=== PATIENT | female | born 1940 | race Caucasian/White ===

== ENCOUNTER 2016-09-14 08:56 | Emergency (ER) | payer OTHER ==
[~2016-09-14] VITALS: Ht 154.9 cm; Wt 67.0 kg
[~2016-09-14 08:56] MED LIST: ADVIN25/60 INH; ALEN1TAB21 PO; AMLO-114 PO; APR25 PO; ASPCH81X PO; ATV5 PO; CLOTCRE33 TOP; CRD4 PO; CRS/10 PO; ERGO1CAP35 PO; FURO-85 PO; HYDR-4313 PO; LEVO150T PO; LPR25 PO; ZNTT/150 PO
[2016-09-14 09:03] VITALS: TEMP 36.5; Ht 154.9 cm; Wt 67.0 kg
[2016-09-14] MEDS ORDERED: ONDANSETRON INJ 2 MG/ML 2 ML VIAL IV STA (09:14)
[2016-09-14] MEDS ORDERED: SODIUM CHLORIDE 0.9% 1000ML 1,000 ML IV STA (09:14)
[2016-09-14] MEDS ORDERED: LOSARTAN POTASSIUM 50 MG TAB PO ONE (09:30)
[2016-09-14] MEDS ORDERED: DOXAZosin MESYLATE TAB 4 MG TAB PO ONE (09:30)
--- NOTE | 2016-09-14 09:33 | DIAGNOSTIC IMAGING REPORT ---
SINGLE VIEW CHEST CLINICAL HISTORY: Generalized abdominal pain. FINDINGS: An AP, portable, upright chest radiograph is compared to study dated 11/20/2010. The examination is degraded by portable technique and patient rotation. The heart is enlarged and there is atherosclerotic calcification of the thoracic aorta. The pulmonary vasculature is noncongested. The lungs and pleural spaces are clear. No pneumothorax is seen. The skeletal structures are osteopenic. The bony thorax is grossly intact. IMPRESSION: Cardiomegaly with no acute cardiopulmonary abnormality. Electronically signed by: Luke Metzger M.D. 09/14/2016 9:32 AM Dictated Date/Time: 09/14/2016 9:31 AM
[2016-09-14 09:36] LABS: BASO % 0.4 %; BASO ABS # 0.02 K/uL (0-0.2); COMPLETE YES; EOS % 1.7 %; HEMATOCRIT 33.5 % (37-47); IG% 0.2 %; LYMPH ABS # 0.92 K/uL (1.2-3.4); MEAN CELL VOLUME 89.1 fL (80-100); MEAN CORPUSCULAR HEMOGLOBIN 31.4 pg (25-34); MEAN CORPUSCULAR HGB CONC 35.2 g/dl (32-36); MEAN PLATELET VOLUME 9.3 fL (7.4-10.4); MONO % 12.8 %; NEUT % 64.9 %; PLATELET COUNT 190 K/uL (130-400); RED BLOOD COUNT 3.76 M/uL (4.2-5.4)
[2016-09-14] MEDS ORDERED: LSX40 PO (09:42)
[2016-09-14] MEDS ORDERED: ATV5 PO (09:42)
[2016-09-14] MEDS ORDERED: LOSA100T65 PO (09:42)
[2016-09-14] MEDS ORDERED: TRAM-10 PO (09:42)
[2016-09-14] MEDS ORDERED: SYN175 PO (09:42)
[2016-09-14] MEDS ORDERED: APIX1TAB3 PO (09:42)
[2016-09-14 09:50] LABS: PARTIAL THROMBOPLASTIN RATIO 1.2; PROTHROMBIN TIME (PATIENT) 10.5 SECONDS (9.0-12.0)
--- NOTE | 2016-09-14 09:51 | DIAGNOSTIC IMAGING REPORT ---
CT SCAN OF THE BRAIN WITHOUT IV CONTRAST CLINICAL HISTORY: Headache. COMPARISON STUDY: No priors. TECHNIQUE: Unenhanced axial CT scan of the brain is performed from the vertex to the skull base. CT DOSE: 537.48 mGy.cm FINDINGS: Brain parenchyma: There are age-related involutional changes noting mild subcortical and periventricular microangiopathic change. There is no hemorrhage, mass effect, or evidence of acute territorial ischemia by CT criteria. Gerard-white matter is preserved. No extra-axial fluid collection is seen. Ventricles, sulci, cisterns: Prominent secondary to involutional change. Intracranial vasculature: There is atherosclerotic calcification of the cavernous carotid and vertebral arteries. Calvarium: Unremarkable. Sinuses and mastoids: The visualized paranasal sinuses are clear. There are small mastoid effusions. Orbits: The bony orbits are grossly intact. There are bilateral ocular lens implants. IMPRESSION: There is no hemorrhage, mass effect, or evidence of acute territorial ischemia by CT criteria. Electronically signed by: Luke Metzger M.D. 09/14/2016 9:49 AM Dictated Date/Time: 09/14/2016 9:47 AM
[2016-09-14 09:54] LABS: BUN/CREATININE RATIO 14.1 (10-20); CALCIUM 8.7 mg/dl (8.5-10.1); CREATININE 2.3 mg/dl (0.60-1.20); POTASSIUM 3.5 mmol/L (3.5-5.1)
[2016-09-14] MEDS ORDERED: ONDA4TAB10 SL (10:55)
--- NOTE | 2016-09-14 10:56 | EMERGENCY ROOM VISIT NOTE ---
History Report prepared by Norm: Sofy Brady Under the Supervision of: Dr. Joey El D.O. First contact with patient: 09:00 Stated Complaint: DIARRHEA History of Present Illness The patient is a 75 year old female who presents to the Emergency Room with complaints of persistent diarrhea that began 2 days ago. She tried to take Imodium and milk of magnesia which did slow down her diarrhea slightly. She also complains of a headache, dry heaves and weakness. She notes that she is having difficulty getting around due to feeling weak. Typically she gets around on her own, but she has relied on her walker over the past couple of days. Denies vomiting or other complaints. 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 Source of History: patient Onset: 2 days ago Position: other (GI) Timing: other (persistent) Associated Symptoms: + headache, + weakness, No vomiting Note: Other symptoms: dry heaving Review of Systems See HPI for pertinent positives & negatives. A total of 10 systems reviewed and were otherwise negative. Past Medical & Surgical Medical Problems: (1) Acute kidney injury superimposed on chronic kidney disease (2) Anemia (3) Anemia associated with chronic renal failure (4) Chronic kidney disease (CKD) stage G4/A2, severely decreased glomerular filtration rate (GFR) between 15-29 mL/min/1.73 square meter and albuminuria creatinine ratio between 30-299 mg/g (5) Hypertension (6) Hypertension (7) Hypothyroidism (8) Proteinuria Family History Diabetes mellitus Social History Smoking Status: Never Smoker Marital Status: single Occupation Status: retired Current/Historical Medications Scheduled Apixaban (Eliquis), 5 MG PO Q12 Doxazosin Mesylate (Doxazosin Mesylate), 1 TAB PO BID Fluticasone Prop/Salmeterol (Advair Diskus 250/50 60 Dose), 1 PUFF INH BID Furosemide (Furosemide), 40 MG PO DAILY Hydralazine Hcl (Apresoline), 25 MG PO TID Levothyroxine Sodium (Synthroid), 175 MCG PO DAILY Losartan Potassium (Cozaar), 100 MG PO DAILY Metoprolol Tartrate (Lopressor), 25 MG PO BID Ranitidine (Zantac), 150 MG PO BID Scheduled PRN Lorazepam (Lorazepam), 0.5 MG PO BID PRN for Anxiety Tramadol (Ultram), 50 MG PO Q12 PRN for Pain Allergies Coded Allergies: Tetracycline (Unverified Allergy, Unknown, unknown(not 100% sure if she's allergic to it), 09/14/16) Tramadol (Verified Adverse Reaction, Unknown, dizzy, emesis, 07/25/15) Physical Exam Vital Signs Date Time Temp Pulse Resp B/P Pulse Ox O2 Delivery O2 Flow Rate FiO2 09/14/16 09:58 60 198/88 09/14/16 09:04 65 09/14/16 09:03 36.5 76 16 249/96 94 Room Air Physical Exam CONSTITUTIONAL/VITAL SIGNS: Reviewed / noted above. GENERAL: Non-toxic in appearance. INTEGUMENTARY: Warm, dry, and [place]. HEAD: Normocephalic. EYES: without scleral icterus or trauma. ENT/OROPHARYNX: clear and moist. LYMPHADENOPATHY/NECK: Is supple without lymphadenopathy or meningismus. RESPIRATORY: Lungs clear and equal. CARDIOVASCULAR: Regular rate and rhythm. GI/ABDOMEN: Soft and nontender. No organomegaly or pulsatile mass. No rebound or guarding. Normal bowel sounds. EXTREMITIES: Warm and well perfused. BACK: No CVA tenderness. NEUROLOGICAL: Intact without focal deficits. PSYCHIATRIC: normal affect. MUSCULOSKELETAL: Normally developed with good muscle tone. Medical Decision & Procedures ER Provider Diagnostic Interpretation: Radiology results as stated below per my review and radiologist interpretation: SINGLE VIEW CHEST CLINICAL HISTORY: Generalized abdominal pain. FINDINGS: An AP, portable, upright chest radiograph is compared to study dated 11/20/2010. The examination is degraded by portable technique and patient rotation. The heart is enlarged and there is atherosclerotic calcification of the thoracic aorta. The pulmonary vasculature is noncongested. The lungs and pleural spaces are clear. No pneumothorax is seen. The skeletal structures are osteopenic. The bony thorax is grossly intact. IMPRESSION: Cardiomegaly with no acute cardiopulmonary abnormality. Electronically signed by: Luke Metzger M.D. 09/14/2016 9:32 AM Dictated Date/Time: 09/14/2016 9:[address] SCAN OF THE BRAIN WITHOUT IV CONTRAST CLINICAL HISTORY: Headache. COMPARISON STUDY: No priors. TECHNIQUE: Unenhanced axial CT scan of the brain is performed from the vertex to the skull base. CT DOSE: 537.48 mGy.cm FINDINGS: Brain parenchyma: There are age-related involutional changes noting mild subcortical and periventricular microangiopathic change. There is no hemorrhage, mass effect, or evidence of acute territorial ischemia by CT criteria. Gerard-white matter is preserved. No extra-axial fluid collection is seen. Ventricles, sulci, cisterns: Prominent secondary to involutional change. Intracranial vasculature: There is atherosclerotic calcification of the cavernous carotid and vertebral arteries. Calvarium: Unremarkable. Sinuses and mastoids: The visualized paranasal sinuses are clear. There are small mastoid effusions. Orbits: The bony orbits are grossly intact. There are bilateral ocular lens implants. IMPRESSION: There is no hemorrhage, mass effect, or evidence of acute territorial ischemia by CT criteria. Electronically signed by: Luke Metzger M.D. 09/14/2016 9:49 AM Dictated Date/Time: 09/14/2016 9:47 AM Laboratory Results 09/14/16 09:06 Red Blood Count 3.76, Mean Corpuscular Volume 89.1, Mean Corpuscular Hemoglobin 31.4, Mean Corpuscular Hemoglobin Concent 35.2, Mean Platelet Volume 9.3, Neutrophils (%) (Auto) 64.9, Lymphocytes (%) (Auto) 20.0, Monocytes (%) (Auto) 12.8, Eosinophils (%) (Auto) 1.7, Basophils (%) (Auto) 0.4, Neutrophils # (Auto ) 2.98, Lymphocytes # (Auto) 0.92, Monocytes # (Auto) 0.59, Eosinophils # (Auto ) 0.08, Basophils # (Auto) 0.02 09/14/16 09:06 Test 09/14/16 09:06 09/14/16 09:27 White Blood Count 4.60 K/uL (4.8-10.8) Red Blood Count 3.76 M/uL (4.2-5.4) Hemoglobin 11.8 g/dL (12.0-16.0) Hematocrit 33.5 % (37-47) Mean Corpuscular Volume 89.1 fL (80-100) Mean Corpuscular Hemoglobin 31.4 pg (25-34) Mean Corpuscular Hemoglobin Concent 35.2 g/dl (32-36) Platelet Count 190 K/uL (130-400) Mean Platelet Volume 9.3 fL (7.4-10.4) Neutrophils (%) (Auto) 64.9 % Lymphocytes (%) (Auto) 20.0 % Monocytes (%) (Auto) 12.8 % Eosinophils (%) (Auto) 1.7 % Basophils (%) (Auto) 0.4 % Neutrophils # (Auto) 2.98 K/uL (1.4-6.5) Lymphocytes # (Auto) 0.92 K/uL (1.2-3.4) Monocytes # (Auto) 0.59 K/uL (0.11-0.59) Eosinophils # (Auto) 0.08 K/uL (0-0.5) Basophils # (Auto) 0.02 K/uL (0-0.2) RDW Standard Deviation 40.7 fL (36.4-46.3) RDW Coefficient of Variation 12.6 % (11.5-14.5) Immature Granulocyte % (Auto) 0.2 % Immature Granulocyte # (Auto) 0.01 K/uL (0.00-0.02) Prothrombin Time 10.5 SECONDS (9.0-12.0) Prothromb Time International Ratio 1.0 (0.9-1.1) Activated Partial Thromboplast Time 30.1 SECONDS (21.0-31.0) Partial Thromboplastin Ratio 1.2 Anion Gap 12.0 mmol/L (3-11) Est Creatinine Clear Calc Drug Dose 18.8 ml/min Estimated GFR () 23.5 Estimated GFR (Non- 20.3 BUN/Creatinine Ratio 14.1 (10-20) Calcium Level 8.7 mg/dl (8.5-10.1) Total Bilirubin 0.6 mg/dl (0.2-1) Direct Bilirubin 0.2 mg/dl (0-0.2) Aspartate Amino Transf (AST/SGOT) 25 U/L (15-37) Alanine Aminotransferase (ALT/SGPT) 17 U/L (12-78) Alkaline Phosphatase 142 U/L (45-117) Total Protein 7.2 gm/dl (6.4-8.2) Albumin 3.6 gm/dl (3.4-5.0) Lipase 99 U/L (73-393) Influenza Type A Antigen Neg for Influ A (NEG) Influenza Type B Antigen Neg for Influ B (NEG) Laboratory results as stated above per my review. Medications Administered Medications (Trade) Dose Ordered Sig/Devin Route Start Time Stop Time Status Last Admin Dose Admin Sodium Chloride (Nss 1000ml) 1,000 ml @ 999 mls/hr Q1H1M STAT IV 09/14/16 09:14 09/14/16 10:14 DC 09/14/16 09:31 999 MLS/HR Ondansetron HCl (Zofran Inj) 4 mg NOW STAT IV 09/14/16 09:14 09/14/16 09:17 DC 09/14/16 09:29 4 MG Losartan Potassium (coZAAR TAB) 100 mg ONE ONCE PO 09/14/16 09:30 09/14/16 09:31 DC 09/14/16 10:00 100 MG Doxazosin Mesylate (Cardura Tab) 4 mg ONE ONCE PO 09/14/16 09:30 09/14/16 09:31 DC 09/14/16 10:01 4 MG Hydralazine HCl (Apresoline Tab) 25 mg NOW STAT PO 09/14/16 09:17 09/14/16 09:20 DC 09/14/16 10:00 25 MG ED Course 0912: Previous medical records were reviewed. The patient was evaluated in room A11. A complete history and physical examination was performed. 0914: Ordered Zofran Inj 4 mg IV, NSS 1000 ml @ 999 mls/hr IV. 0917: Ordered Apresoline Tab 25 mg PO. 0930: Ordered Cardura Tab 4 mg PO, coZAAR Tab 100 mg PO. 1047: On reevaluation, the patient is feeling better. I discussed the results and findings with the patient. She verbalized agreement of the treatment plan. The patient was discharged home. Medical Decision Differential includes acute coronary syndrome, myocardial infarction, CVA, TIA, anemia, infection, pneumonia, UTI, pyelonephritis, poor nutrition, dehydration, electrolyte disturbance,hypoglycemia. This is a 75-year-old female who presents to the ED with a chief complaint of diarrhea. The patient also had some dry heaves. Her symptoms started on Thursday. She has not had any vomiting. She did not have diarrhea today. She took Imodium which seems to have helped. The patient came in because she thought she might be dehydrated. She was a little weak. The patient also complained of a headache. She is on anticoagulation (Eliquis). The patient reports baseline renal insufficiency. She also states that she did not take her blood pressure medication this morning. CT scan of the brain was negative for acute disease as well as a chest x-ray. CBC is unremarkable. BUN is 33. Creatinine is around baseline at 2.3. Sodium was 126. Flu swab was negative. On reassessment, the patient does report feeling better. She was told results the test. She will be discharged with a prescription for Zofran. The patient was treated with IV fluids as well as IV Zofran and some of her oral blood pressure medication. She was felt to be stable for discharge. Her blood pressure was elevated. This is likely related to the fact she did not take her medication this morning as well as possibly related to some pork torsion due to her diarrhea. There does not appear to be a hypertensive emergency. Impression Primary Impression: Diarrhea Additional Impression: Dehydration Scribe Attestation The scribe's documentation has been prepared under my direction and personally reviewed by me in its entirety. I confirm that the note above accurately reflects all work, treatment, procedures, and medical decision making performed by me. Departure Information Dispostion Home / Self-Care Prescriptions Ondasetron Odt (ZOFRAN ODT) 4 Mg Tab 4 MG SL Q6H for Nausea, #15 TAB Prov: Joey El D.O. 09/14/16 Referrals Enzo Carrington M.D. (PCP) Patient Instructions Diarrhea, My [facility] Additional Instructions Zofran: Allow one tablet to dissolve under the tongue every 6 hours as needed for nausea or vomiting. Sent to [facility] and [place]. Return for any concerns. Take your blood pressure medication as prescribed. Follow-up with your doctor later this week for recheck. Have your blood pressure rechecked as well. Problem Qualifiers
[2016-09-14 11:09] VITALS: BP 200/66; PULSE 65; O2SAT 97
== END 2016-09-14 11:10 | disposition home or self-care (01) ==
LOC: EDBD 08:56 → C.EDA 08:57
DX: R19.7 Diarrhea, unspecified (principal); E86.0 Dehydration; D64.9 Anemia, unspecified; N18.3 Chronic kidney disease, stage 3 (moderate); E03.9 Hypothyroidism, unspecified; I10 Essential (primary) hypertension

== ENCOUNTER 2016-10-22 16:52 | Emergency (ER) | payer OTHER ==
[~2016-10-22] VITALS: Ht 157.5 cm; Wt 73.9 kg
[~2016-10-22 16:52] MED LIST changes: -ALEN1TAB21 PO; -AMLO-114 PO; +APIX1TAB3 PO; -ASPCH81X PO; -CLOTCRE33 TOP; -CRS/10 PO; -ERGO1CAP35 PO; -FURO-85 PO; -HYDR-4313 PO; -LEVO150T PO; +LOSA100T65 PO; +LSX40 PO; +ONDA4TAB10 SL; +SYN175 PO; +TRAM-10 PO
[2016-10-22 16:58] VITALS: TEMP 36.9; Ht 157.5 cm; Wt 73.9 kg
[2016-10-22] MEDS ORDERED: SODIUM CHLORIDE 0.9% 1000ML 1,000 ML IV STA (17:08)
[2016-10-22] MEDS ORDERED: ONDANSETRON INJ 2 MG/ML 2 ML VIAL IV STA (17:08)
--- NOTE | 2016-10-22 17:09 | EMERGENCY ROOM VISIT NOTE ---
History Report prepared by Norm: Marc Villalobos Under the Supervision of: Paolo MorrisO. First contact with patient: 16:59 Chief Complaint: VOMITING Stated Complaint: NAUSEA, DIARRHEA History of Present Illness The patient is a 75 year old female who presents to the Emergency Room with complaints of an episode of vomiting and diarrhea that occurred prior to arrival today. Per the nursing staff, the patient ate a pork product at [facility], and as soon as the patient got home, she started becoming nauseous with episodes of vomiting and diarrhea. She had 2 episodes of diarrhea. The patient started to get shaky as well. She called an ambulance, and was brought here. She feels fine now and her symptoms have resolved. The patient denies any chest pain, shortness of breath, abdominal pain, urinary symptoms, leg swelling, or leg pain. The patient is diabetic and has hypertension. She has no past surgical history. The patient does not drink alcohol or use tobacco products. Source of History: patient, nursing staff Onset: Prior to arrival today Position: other (global - vomiting, diarrhea) Timing: resolved, other (episode) Associated Symptoms: + nausea, No SOB, No abdominal pain, No chest pain, No urinary symptoms Note: Associated symptoms: Shaky during episode. Denies leg swelling, leg pain. Review of Systems See HPI for pertinent positives & negatives. A total of 10 systems reviewed and were otherwise negative. Past Medical & Surgical Medical Problems: (1) Acute kidney injury superimposed on chronic kidney disease (2) Anemia (3) Anemia associated with chronic renal failure (4) Chronic kidney disease (CKD) stage G4/A2, severely decreased glomerular filtration rate (GFR) between 15-29 mL/min/1.73 square meter and albuminuria creatinine ratio between 30-299 mg/g (5) Hypertension (6) Hypertension (7) Hypothyroidism (8) Proteinuria Family History Diabetes mellitus Social History Smoking Status: Never Smoker Smokeless Tobacco Use: No Alcohol Use: none Marital Status: single Occupation Status: retired Current/Historical Medications Scheduled Apixaban (Eliquis), 5 MG PO Q12 Aspirin (Aspirin Ec), 81 MG PO DAILY Cholecalciferol (Vitamin D-3), 400 UNIT PO DAILY Doxazosin Mesylate (Doxazosin Mesylate), 1 TAB PO BID Fluticasone Prop/Salmeterol (Advair Diskus 250/50 60 Dose), 1 PUFF INH BID Furosemide (Furosemide), 40 MG PO DAILY Hydralazine Hcl (Apresoline), 25 MG PO TID Levothyroxine Sodium (Synthroid), 175 MCG PO DAILY Losartan Potassium (Cozaar), 100 MG PO DAILY Metoprolol Tartrate (Lopressor), 25 MG PO BID Ondasetron Odt (Zofran Odt), 4 MG SL Q6H Ranitidine (Zantac), 150 MG PO BID Scheduled PRN Lorazepam (Lorazepam), 0.5 MG PO BID PRN for Anxiety Tramadol (Ultram), 50 MG PO Q12 PRN for Pain Allergies Coded Allergies: Pork (Unverified Allergy, Unknown, unknown, 10/22/16) Pork Allergy (Unverified Allergy, Unknown, unknown, 10/22/16) Tetracycline (Unverified Allergy, Unknown, unknown(not 100% sure if she's allergic to it), 10/22/16) Tramadol (Verified Adverse Reaction, Unknown, dizzy, emesis, 10/22/16) Physical Exam Vital Signs Date Time Temp Pulse Resp B/P Pulse Ox O2 Delivery O2 Flow Rate FiO2 10/22/16 18:33 68 16 140/87 97 Room Air 10/22/16 17:25 60 20 137/71 97 Room Air 10/22/16 16:58 36.9 66 16 153/79 97 Room Air Physical Exam GENERAL: Patient is awake, alert, and in no acute distress. Patient is resting comfortably and showing no signs of anxiety EYES: The conjunctivae are clear. The pupils are round and reactive. EARS, NOSE, MOUTH AND THROAT: The nose is without any evidence of any deformity. Mucous membranes are moist tongue is midline NECK: The neck is nontender and supple. RESPIRATORY: Normal respiratory effort is noted there is no evidence of wheezing rhonchi or rales CARDIOVASCULAR: Regular rate and rhythm noted there no murmurs rubs or gallops normal S1 normal S2 GASTROINTESTINAL: The abdomen is soft. Bowel sounds are present in all quadrants. Abdomen is nontender. MUSCULOSKELETAL/EXTREMITIES: There is no evidence of gross deformity full range of motion is noted in the hips and shoulders SKIN: There is no obvious evidence of any rash. There are no petechiae, pallor or cyanosis noted. NEUROLOGIC: Patient is awake alert and oriented x3. Medical Decision & Procedures ER Provider Diagnostic Interpretation: X-ray results as stated below per interpretation by me and the radiologist. CHEST ONE VIEW PORTABLE CLINICAL HISTORY: vomiting nausea COMPARISON STUDY: No previous studies for comparison. FINDINGS: The bones soft tissues and hemidiaphragms are normal. The cardiomediastinal silhouette is normal. The lungs are clear. The pulmonary vasculature is normal. IMPRESSION: Negative chest. Electronically signed by: Kamari Florez M.D. 10/22/2016 5:35 PM Dictated Date/Time: 10/22/2016 5:35 PM Laboratory Results 10/22/16 17:25 Red Blood Count 3.73, Mean Corpuscular Volume 90.6, Mean Corpuscular Hemoglobin 32.4, Mean Corpuscular Hemoglobin Concent 35.8, Mean Platelet Volume 9.5, Neutrophils (%) (Auto) 94.1, Lymphocytes (%) (Auto) 2.9, Monocytes (%) (Auto) 2.5, Eosinophils (%) (Auto) 0.1, Basophils (%) (Auto) 0.1, Neutrophils # (Auto) 7.21, Lymphocytes # (Auto) 0.22, Monocytes # (Auto) 0.19, Eosinophils # (Auto) 0.01, Basophils # (Auto) 0.01 10/22/16 17:25 Test 10/22/16 17:25 White Blood Count 7.66 K/uL (4.8-10.8) Red Blood Count 3.73 M/uL (4.2-5.4) Hemoglobin 12.1 g/dL (12.0-16.0) Hematocrit 33.8 % (37-47) Mean Corpuscular Volume 90.6 fL (80-100) Mean Corpuscular Hemoglobin 32.4 pg (25-34) Mean Corpuscular Hemoglobin Concent 35.8 g/dl (32-36) Platelet Count 172 K/uL (130-400) Mean Platelet Volume 9.5 fL (7.4-10.4) Neutrophils (%) (Auto) 94.1 % Lymphocytes (%) (Auto) 2.9 % Monocytes (%) (Auto) 2.5 % Eosinophils (%) (Auto) 0.1 % Basophils (%) (Auto) 0.1 % Neutrophils # (Auto) 7.21 K/uL (1.4-6.5) Lymphocytes # (Auto) 0.22 K/uL (1.2-3.4) Monocytes # (Auto) 0.19 K/uL (0.11-0.59) Eosinophils # (Auto) 0.01 K/uL (0-0.5) Basophils # (Auto) 0.01 K/uL (0-0.2) RDW Standard Deviation 43.1 fL (36.4-46.3) RDW Coefficient of Variation 13.0 % (11.5-14.5) Immature Granulocyte % (Auto) 0.3 % Immature Granulocyte # (Auto) 0.02 K/uL (0.00-0.02) Anion Gap 9.0 mmol/L (3-11) Est Creatinine Clear Calc Drug Dose 17.9 ml/min Estimated GFR () 20.2 Estimated GFR (Non- 17.5 BUN/Creatinine Ratio 19.5 (10-20) Calcium Level 8.5 mg/dl (8.5-10.1) Total Bilirubin 0.9 mg/dl (0.2-1) Direct Bilirubin 0.3 mg/dl (0-0.2) Aspartate Amino Transf (AST/SGOT) 30 U/L (15-37) Alanine Aminotransferase (ALT/SGPT) 21 U/L (12-78) Alkaline Phosphatase 127 U/L (45-117) Troponin I 0.024 ng/ml (0-0.045) Total Protein 6.9 gm/dl (6.4-8.2) Albumin 3.6 gm/dl (3.4-5.0) Lipase 189 U/L (73-393) Laboratory results per my review. Medications Administered Medications (Trade) Dose Ordered Sig/Devin Route Start Time Stop Time Status Last Admin Dose Admin Sodium Chloride (Nss 1000ml) 1,000 ml @ 999 mls/hr Q1H1M STAT IV 10/22/16 17:08 10/22/16 18:08 DC 10/22/16 17:23 999 MLS/HR Ondansetron HCl (Zofran Inj) 4 mg NOW STAT IV 10/22/16 17:08 10/22/16 17:10 DC 10/22/16 17:24 4 MG Ondansetron HCl (ZOFRAN ODT 4MG Home Pack) 1 homepack UD ONCE PO 10/22/16 18:30 10/22/16 18:31 DC 10/22/16 19:03 1 HOMEPACK ECG Indication: vomiting Rate (beats per minute): 63 Rhythm: normal sinus Findings: PVC, other (LVH noted by voltage criteria) Comparison ECG Date: lateral T-wave inversions noted compared to Nov 18 2010 ED Course 1701: The patient was evaluated in room C7. A complete history and physical examination were performed. 1707: Ordered Zofran Inj 4 mg IV, NSS 1000 ml @ 999 mls/hr IV. 1829: Ordered Zofran ODT 4MG Home Pack 1 homepack PO. 1830: Upon reevaluation, the patient is resting comfortably. I discussed the results and treatment plan with her. She verbalized agreement of the treatment plan. She was discharged home. Medical Decision Triage Nursing notes reviewed. Additional history obtained from the nursing staff. Differential diagnosis: Etiologies such as gastroenteritis, food borne illness, infections, appendicitis , diverticulitis, inflammatory bowel disease, obstruction, GI bleed, biliary pathology, as well as others were entertained. The patient is a 75-year-old female who presented to the emergency department after an episode of nausea vomiting and loose stools. The patient states that she ate at a fast food restaurant and directly afterwards had this episode. She became very concerned and called for an ambulance to come to the emergency department. Upon arrival to the emergency Department the patient states that she had no symptoms. She denied having any abdominal pain. Her physical exam was not consistent with an acute surgical abdomen. She was treated with IV fluids and IV antiemetics and was asymptomatic on final reevaluation. I discussed the patient's laboratory and radiographic studies with her. She was found have hyponatremia. I feel this is likely due to her medications. Her creatinine was also mildly elevated from baseline. I discussed the patient's condition with her. I discussed these laboratory results in particular. Her troponin was also above the threshold for detection and I feel this is secondary to her renal insufficiency because she has no cardiac symptoms whatsoever at this time. I offered to have the patient evaluated by the hospitalist for possible inpatient management but she wished to go home because she had no symptoms. She was encouraged to rest and avoid any strenuous activity. She was also encouraged to follow-up with her family doctor tomorrow for reevaluation as well as to evaluate her medications to see if this could be causing her hyponatremia. She was also encouraged to return to the emergency Department immediately if symptoms change worsen or the need arises. Impression Primary Impression: Nausea & vomiting Additional Impressions: Dehydration Hyponatremia Scribe Attestation The scribe's documentation has been prepared under my direction and personally reviewed by me in its entirety. I confirm that the note above accurately reflects all work, treatment, procedures, and medical decision making performed by me. Departure Information Dispostion Home / Self-Care Referrals Enzo Carrington M.D. (PCP) Forms HOME CARE DOCUMENTATION FORM, IMPORTANT VISIT INFORMATION Patient Instructions ED Nausea Vomiting, My [facility] Additional Instructions Call your family in the morning to schedule a follow-up appointment. Continue all medications as prescribed. I would recommend a recheck of your laboratory studies which were abnormal today including her sodium and your creatinine. Return to the emergency department immediately if symptoms change worsen or the need arises. Problem Qualifiers Primary Impression: Nausea & vomiting Vomiting type: unspecified Vomiting Intractability: non-intractable Qualified Codes: R11.2 - Nausea with vomiting, unspecified
[2016-10-22 17:33] LABS: BASO % 0.1 %; BASO ABS # 0.01 K/uL (0-0.2); COMPLETE YES; EOS % 0.1 %; HEMATOCRIT 33.8 % (37-47); IG% 0.3 %; LYMPH % 2.9 %; LYMPH ABS # 0.22 K/uL (1.2-3.4); MEAN CELL VOLUME 90.6 fL (80-100); MEAN CORPUSCULAR HEMOGLOBIN 32.4 pg (25-34); MEAN CORPUSCULAR HGB CONC 35.8 g/dl (32-36); MEAN PLATELET VOLUME 9.5 fL (7.4-10.4); MONO % 2.5 %; NEUT % 94.1 %; PLATELET COUNT 172 K/uL (130-400); RED BLOOD COUNT 3.73 M/uL (4.2-5.4); WHITE BLOOD COUNT 7.66 K/uL (4.8-10.8)
--- NOTE | 2016-10-22 17:37 | DIAGNOSTIC IMAGING REPORT ---
CHEST ONE VIEW PORTABLE CLINICAL HISTORY: vomiting nausea COMPARISON STUDY: No previous studies for comparison. FINDINGS: The bones soft tissues and hemidiaphragms are normal. The cardiomediastinal silhouette is normal. The lungs are clear. The pulmonary vasculature is normal. IMPRESSION: Negative chest. Electronically signed by: Kamari Florez M.D. 10/22/2016 5:35 PM Dictated Date/Time: 10/22/2016 5:35 PM
[2016-10-22] MEDS ORDERED: CHOL1TAB PO (17:44)
[2016-10-22] MEDS ORDERED: ASPI81TA28 PO (17:44)
[2016-10-22 17:52] LABS: BUN/CREATININE RATIO 19.5 (10-20); CALCIUM 8.5 mg/dl (8.5-10.1); CREATININE 2.6 mg/dl (0.60-1.20); POTASSIUM 3.6 mmol/L (3.5-5.1)
[2016-10-22] MEDS ORDERED: ONDANSETRON HOME PACK 4MG OD TAB PO ONE (18:30)
[2016-10-22 20:41] VITALS: BP 153/63; PULSE 58; O2SAT 99
[2017-04-20] MEDS ORDERED: LACT12LO TOP (09:20)
== END 2016-10-22 20:42 | disposition home or self-care (01) ==
LOC: EDBD 16:52 → C.EDC 16:53
DX: R11.2 Nausea with vomiting, unspecified (principal); E86.0 Dehydration; E87.1 Hypo-osmolality and hyponatremia; E03.9 Hypothyroidism, unspecified; N18.4 Chronic kidney disease, stage 4 (severe); I12.9 Hypertensive chronic kidney disease with stage 1 through stage 4 chronic kidney disease, or unspecified chronic kidney disease; D63.1 Anemia in chronic kidney disease; Z83.3 Family history of diabetes mellitus; Z79.01 Long term (current) use of anticoagulants; Z79.82 Long term (current) use of aspirin; Z79.899 Other long term (current) drug therapy; E11.22 Type 2 diabetes mellitus with diabetic chronic kidney disease

== ENCOUNTER 2017-03-19 15:47 | Inpatient (IN) | payer OTHER ==
[~2017-03-19] VITALS: Ht 157.5 cm; Wt 79.6 kg
[~2017-03-19 15:47] MED LIST changes: +ASPI81TA28 PO; +CHOL1TAB PO; -ONDA4TAB10 SL
[2017-03-19] MEDS ORDERED: LORAZEPAM 0.5 MG TAB PO STA ×2 (16:20→17:25)
--- NOTE | 2017-03-19 16:22 | EMERGENCY ROOM VISIT NOTE ---
History Report prepared by Norm: Alonso Frederick Under the Supervision of: Dr. Varsha Garcia D.O. First contact with patient: 16:00 Chief Complaint: MENTAL HEALTH EVALUATION Stated Complaint: DEPRESSION History of Present Illness The patient is a 76 year old female who presents to the Emergency Room with complaints of worsening anxiety that began 2 days ago. At this time, the patient ran out of her Lorazepam prescription. She normally takes 1 mg PO every morning to manage her anxiety. She has not been able to get to her PCP's office because she has been busy. Her anxiety worsened over these days until she became severely depressed today. This is the first time this has happened to her. She denies any suicidal ideation, homicidal ideation, or hallucinations. She has not been able to go to her pediatrist secondary to not having transportation to the office. She also has a history of diabetes and hypertension. She notes her sugars have been good. Source of History: patient Onset: two days ago Position: other (Mental Health) Symptom Intensity: moderate Quality: other (Anxiety) Timing: worsening Note: She denies any SI, HI, or hallucinations. She also denies any physical symptoms. Review of Systems See HPI for pertinent positives & negatives. A total of 10 systems reviewed and were otherwise negative. Past Medical & Surgical Medical Problems: (1) Acute kidney injury superimposed on chronic kidney disease (2) Anemia (3) Anemia associated with chronic renal failure (4) Chronic kidney disease (CKD) stage G4/A2, severely decreased glomerular filtration rate (GFR) between 15-29 mL/min/1.73 square meter and albuminuria creatinine ratio between 30-299 mg/g (5) Hypertension (6) Hypertension (7) Hypothyroidism (8) Proteinuria Family History Diabetes mellitus Social History Smoking Status: Never Smoker Smokeless Tobacco Use: No Alcohol Use: none Drug Use: none Marital Status: single Housing Status: lives alone Occupation Status: retired Current/Historical Medications Scheduled Aspirin (Aspirin Ec), 81 MG PO DAILY Doxazosin Mesylate (Doxazosin Mesylate), 1 TAB PO BID Fluticasone Prop/Salmeterol (Advair Diskus 250/50 60 Dose), 1 PUFF INH BID Furosemide (Furosemide), 40 MG PO DAILY Hydralazine Hcl (Apresoline), 25 MG PO TID Levothyroxine Sodium (Synthroid), 175 MCG PO DAILY Losartan Potassium (Cozaar), 100 MG PO DAILY Metoprolol Tartrate (Lopressor), 25 MG PO BID Ranitidine (Zantac), 150 MG PO BID Scheduled PRN Lorazepam (Lorazepam), 0.5 MG PO BID PRN for Anxiety Allergies Coded Allergies: Pork (Unverified Allergy, Unknown, unknown, 03/19/17) Pork Allergy (Unverified Allergy, Unknown, unknown, 03/19/17) Tetracycline (Unverified Allergy, Unknown, unknown(not 100% sure if she's allergic to it), 03/19/17) Tramadol (Verified Adverse Reaction, Unknown, dizzy, emesis, 03/19/17) Physical Exam Vital Signs Date Time Temp Pulse Resp B/P (MAP) Pulse Ox O2 Delivery O2 Flow Rate FiO2 03/19/17 19:40 76 20 152/71 97 Room Air 03/19/17 17:46 80 18 149/92 99 Room Air 03/19/17 16:08 36.7 73 20 145/90 98 Room Air Physical Exam GENERAL: alert, well appearing, well nourished, no distress, non-toxic EYE EXAM: normal conjunctiva, PERRL and EOM's grossly intact OROPHARYNX: no exudate, no erythema, lips, buccal mucosa, and tongue normal and mucous membranes are moist NECK: supple, no nuchal rigidity, no adenopathy, non-tender LUNGS: Clear to auscultation. Normal chest wall mechanics HEART: no murmurs, S1 normal and S2 normal ABDOMEN: abdomen soft, non-tender, normo-active bowel sounds, no masses, no rebound or guarding. BACK: Back is symmetrical on inspection and there is no deformity, no midline tenderness, no CVA tenderness. SKIN: no rashes and no bruising UPPER EXTREMITIES: upper extremities are grossly normal. LOWER EXTREMITIES: Multiple layers of plaque and debris noted to the bilateral feet, suspect a fungal infection. No evidence of cellulitis, normal pulses bilaterally. NEURO EXAM: Normal sensorium, cranial nerves II-XII grossly intact, normal speech, no gross weakness of arms, no gross weakness of legs. PSYCH: Denies SI, HI, and hallucinations. Makes good eye contact. Admits to depression and anxiety. Medical Decision & Procedures Laboratory Results Test 03/19/17 17:54 03/19/17 19:27 03/19/17 19:35 Immature Granulocyte % (Auto) 0.5 % White Blood Count 5.68 K/uL (4.8-10.8) Red Blood Count 3.28 M/uL (4.2-5.4) Hemoglobin 10.4 g/dL (12.0-16.0) Hematocrit 28.6 % (37-47) Mean Corpuscular Volume 87.2 fL (80-100) Mean Corpuscular Hemoglobin 31.7 pg (25-34) Mean Corpuscular Hemoglobin Concent 36.4 g/dl (32-36) Platelet Count 139 K/uL (130-400) Mean Platelet Volume 8.9 fL (7.4-10.4) Neutrophils (%) (Auto) 82.2 % Lymphocytes (%) (Auto) 9.3 % Monocytes (%) (Auto) 6.9 % Eosinophils (%) (Auto) 0.9 % Basophils (%) (Auto) 0.2 % Neutrophils # (Auto) 4.67 K/uL (1.4-6.5) Lymphocytes # (Auto) 0.53 K/uL (1.2-3.4) Monocytes # (Auto) 0.39 K/uL (0.11-0.59) Eosinophils # (Auto) 0.05 K/uL (0-0.5) Basophils # (Auto) 0.01 K/uL (0-0.2) Immature Granulocyte # (Auto) 0.03 K/uL (0.00-0.02) Magnesium Level 2.0 mg/dl (1.8-2.4) Total Bilirubin 1.1 mg/dl (0.2-1) Aspartate Amino Transf (AST/SGOT) 25 U/L (15-37) Alanine Aminotransferase (ALT/SGPT) 15 U/L (12-78) Alkaline Phosphatase 129 U/L (45-117) Total Protein 6.7 gm/dl (6.4-8.2) Albumin 3.1 gm/dl (3.4-5.0) Globulin 3.6 gm/dl (2.5-4.0) Albumin/Globulin Ratio 0.9 (0.9-2) Thyroid Stimulating Hormone (TSH) 19.600 uIu/ml (0.300-4.500) Ethyl Alcohol mg/dL 34.0 mg/dl (0-3) Iron Level 100 mcg/dl (35-150) Total Iron Binding Capacity 221 mcg/dl (250-450) Urine Color YELLOW Urine Appearance TURBID (CLEAR) Urine pH 5.0 (4.5-7.5) Urine Specific [place] 1.017 (1.000-1.030) Urine Protein 3+ (NEG) Urine Glucose (UA) NEG (NEG) Urine Ketones NEG (NEG) Urine Occult Blood 1+ (NEG) Urine Nitrite NEG (NEG) Urine Bilirubin NEG (NEG) Urine Urobilinogen NEG (NEG) Urine Leukocyte Esterase LARGE (NEG) Urine WBC (Auto) >30 /hpf (0-5) Urine RBC (Auto) >30 /hpf (0-4) Urine Hyaline Casts (Auto) 1-5 /lpf (0-5) Urine Epithelial Cells (Auto) >30 /lpf (0-5) Urine Bacteria (Auto) 4+ (NEG) Urine Osmolality 209 mOms/kg (500-800) Urine Random Sodium 19 mEq/L Date/Time Source Procedure Growth Status 03/19/17 19:35 Urine , Clean Catch Urine Culture - Final THREE TYPES OF ORGANISMS PRESENT, ALL... Complete Laboratory results per my review. Medications Administered Medications (Trade) Dose Ordered Sig/Devin Route Start Time Stop Time Status Last Admin Dose Admin Lorazepam (Ativan Tab) 0.5 mg NOW STAT PO 03/19/17 16:20 03/19/17 16:21 DC 03/19/17 16:35 0.5 MG Lorazepam (Ativan Tab) 0.5 mg NOW STAT PO 03/19/17 17:25 03/19/17 17:27 DC 03/19/17 17:44 0.5 MG Sodium Chloride 1,000 ml @ 125 mls/hr Q8H STAT IV 03/19/17 18:41 03/19/17 20:13 DC 03/19/17 19:39 125 MLS/HR Sodium Chloride 1,000 ml @ 100 mls/hr Q10H STAT IV 03/19/17 20:09 03/19/17 22:31 DC 03/19/17 20:15 100 MLS/HR Sodium Chloride 1,000 ml @ 100 mls/hr Q10H IV 03/19/17 20:45 03/19/17 23:08 DC 03/19/17 22:39 100 MLS/HR Lorazepam (Ativan Tab) 0.5 mg BID PRN PO 03/19/17 20:45 04/18/17 20:44 03/20/17 21:11 0.5 MG Lorazepam (Ativan Inj) 1 mg Q4H PRN IV 03/19/17 20:45 04/18/17 20:44 03/20/17 02:08 1 MG Acetaminophen (Tylenol Tab) 650 mg Q4H PRN PO 03/19/17 20:45 04/18/17 20:44 03/20/17 09:13 650 MG ECG Indication: toxicologic Rate (beats per minute): 73 Findings: T-wave inversion (1 and aVL (unchanged from prior)), no acute ischemic change, left axis deviation, other (Normal intervals, baseline artifact ) Comparison ECG Date: October 2016 Change: no significant change ED Course 1600: The patient was evaluated in room A5. A complete history and physical exam was performed. 1620: Ordered Ativan Tab 0.5 mg PO 1725: Ordered Ativan Tab 0.5 mg PO 1841: Ordered Sodium Chloride 1000 ml @ 125 mls/hr IV 2009: Ordered Sodium Chloride 1000 ml @ 100 mls/hr IV 2011: Upon reevaluation, the patient is resting. I discussed the findings and the treatment plan with the patient. She expresses agreement and understanding. I [place] with [place] [facility]. She will be evaluated by him for further management. Medical Decision Differential diagnosis: Etiologies such as mood disorder, infection, hypoglycemia, electrolyte abnormalities, cardiac sources, intracerebral event, toxicologic, neurologic, as well as others were entertained. Patient initially presented with complaints of worsening depression and anxiety secondary to running out of her lorazepam. However patient did not improve with her usual dose, and at this time labs and urine were checked. Patient initially denied alcohol, however alcohol found on testing. Patient found to have significant hyponatremia worse compared to prior levels in the 120s. Aware repeat labs were done to assure that they were accurate and repeat was 108. I suspect this is a combination of chronic hyponatremia which may be secondary to a beer drinker potomania, her chronic kidney disease, dehydration, as well as a component of SIADH. Patient started on gentle normal saline as a precaution for her rehydration, and case discussed with hospitalist given need for careful monitoring and treatment of her hyponatremia. Patient has had no seizures, is mentating normally, is oriented. Did not feel patient required hypertonic saline or ICU admission at this time. Doubt CVA, no evidence for mass or malignancy. Doubt bacteremia/sepsis. Medication Reconcilliation Current Medication List: was personally reviewed by me Blood Pressure Screening Patient's blood pressure: Elevated blood pressure Blood pressure disposition: Elevated BP felt to be situational Consults Time Called: 2007 Consulting Physician: Dr. Susan QUICK Returned Call: 2010 I reviewed the patient's case with him. He will evaluate the patient for further management. Impression Primary Impression: Hyponatremia Additional Impressions: CKD (chronic kidney disease) Depression Anxiety Alcohol use Scribe Attestation The scribe's documentation has been prepared under my direction and personally reviewed by me in its entirety. I confirm that the note above accurately reflects all work, treatment, procedures, and medical decision making performed by me. Departure Information Dispostion Being Evaluated By Hospitalist Referrals Enzo Carrington M.D. (PCP) Patient Instructions My [facility] Problem Qualifiers Additional Impressions: CKD (chronic kidney disease) Chronic kidney disease stage: unspecified stage Qualified Codes: N18.9 - Chronic kidney disease, unspecified Depression Depression Type: unspecified Qualified Codes: F32.9 - Major depressive disorder, single episode, unspecified
[2017-03-19 18:13] LABS: BASO % 0.2 %; BASO ABS # 0.01 K/uL (0-0.2); COMPLETE YES; EOS % 0.9 %; HEMATOCRIT 28.6 % (37-47); IG% 0.5 %; LYMPH % 9.3 %; LYMPH ABS # 0.53 K/uL (1.2-3.4); MEAN CELL VOLUME 87.2 fL (80-100); MEAN CORPUSCULAR HEMOGLOBIN 31.7 pg (25-34); MEAN CORPUSCULAR HGB CONC 36.4 g/dl (32-36); MEAN PLATELET VOLUME 8.9 fL (7.4-10.4); MONO % 6.9 %; NEUT % 82.2 %; PLATELET COUNT 139 K/uL (130-400); RED BLOOD COUNT 3.28 M/uL (4.2-5.4); WHITE BLOOD COUNT 5.68 K/uL (4.8-10.8)
[2017-03-19 18:37] LABS: BUN/CREATININE RATIO 16.6 (10-20); CALCIUM 8.1 mg/dl (8.5-10.1); CREATININE 1.7 mg/dl (0.60-1.20); POTASSIUM 3.2 mmol/L (3.5-5.1)
[2017-03-19] MEDS ORDERED: SODIUM CHLORIDE 0.9% 1000ML 1,000 ML IV STA ×2 (18:41→20:09)
[2017-03-19 18:46] LABS: ALB/GLOB RATIO 0.9 (0.9-2); THYROID STIMULATING HORMONE 19.6 uIu/ml (0.300-4.500)
[2017-03-19 19:53] LABS: BUN/CREATININE RATIO 16.8 (10-20); CALCIUM 8.5 mg/dl (8.5-10.1); CREATININE 1.7 mg/dl (0.60-1.20); POTASSIUM 3.4 mmol/L (3.5-5.1)
[2017-03-19 20:12] LABS: URINE APPEARANCE TURBID (CLEAR); URINE BILIRUBIN NEG (NEG); URINE COLOR YELLOW; URINE NITRITE NEG (NEG); URINE SPECIFIC GRAVITY 1.017 (1.000-1.030); UROBILINOGEN NEG (NEG); ZZUR CULT IF INDIC CLEAN CATCH YES
[2017-03-19 20:18] LABS: MANUAL MICROSCOPIC REQUIRED? NO; REVIEW REQ? YES
[2017-03-19 20:29] LABS: URINE EPITHELIAL CELL AUTO >30 /lpf (0-5)
[2017-03-19] MEDS ORDERED: ACETAMINOPHEN 325 MG TAB PO PRN (20:45)
[2017-03-19] MEDS ORDERED: POLYETHYLENE (MIRALAX) 17 GM PACK PO PRN (20:45)
[2017-03-19] MEDS ORDERED: SODIUM CHLORIDE 0.9% 1000ML 1,000 ML IV SCH (20:45)
[2017-03-19] MEDS ORDERED: ALUMINUM/MAGNESIUM/SIMETH (MAALOX MAX) 30 ML UDC PO PRN (20:45)
[2017-03-19] MEDS ORDERED: MAGNESIUM HYDROXIDE SUSP 30 ML UDC PO PRN (20:45)
[2017-03-19] MEDS ORDERED: ONDANSETRON INJ 2 MG/ML 2 ML VIAL IV PRN (20:45)
[2017-03-19] MEDS ORDERED: POTASSIUM CHLORIDE 20 MEQ TABCR PO ONE (21:00)
[2017-03-19 21:28] LABS: TOTAL IRON BINDING CAPACITY 221 mcg/dl (250-450)
--- NOTE | 2017-03-19 21:38 | History and Physical ---
History & Physical Date & Time of Service: Mar 19, 2017 at 21:26 Chief Complaint: Depression Primary Care Physician: Enzo Carrington M.D. History of Present Illness Source: patient, family, hospital records 76 y/o F Hx SIADH, hypothyroidism, depression/anxiety, DM, suspected ETOH abuse. Pt presented with a complaint of depression as she had run out of her Lorazepam and may have just wanted a refill. She was placed in the mental health unit for assessment. Labs were drawn and her sodium was noted to be 108. The pt denies additional symptoms although she had an episode of vomiting while in the ER. She is remarkably awake and alert although per her family she may downplay any issues. She denies alcohol consumption, however, her family states that she drinks beer daily - they could not quantify an amount. Noncompliance with her medications is also suspected. 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 3) CAD 4) Gastroparesis 5) Depression/anxiety 6) Reported ETOH abuse 7) Asthma 8) HTN 9) History of traumatic avulsion of the upper lip as a child 10) Chronic kidney disease Stage 3-4 - baseline creat ~ 3 11) Lower extremity edema Family History Diabetes mellitus Social History Smoking Status: Never Smoker Smokeless Tobacco Use: No Drug Use: none Marital Status: single Housing status: lives alone Occupational Status: retired Immunizations History of Influenza Vaccine: Yes History of Tetanus Vaccine?: No History of Pneumococcal: Yes History of Hepatitis B Vaccine: No Multi-Drug Resistant Organisms History of MDRO: No Allergies Coded Allergies: Pork (Unverified Allergy, Unknown, unknown, 03/19/17) Pork Allergy (Unverified Allergy, Unknown, unknown, 03/19/17) Tetracycline (Unverified Allergy, Unknown, unknown(not 100% sure if she's allergic to it), 03/19/17) Tramadol (Verified Adverse Reaction, Unknown, dizzy, emesis, 03/19/17) Home Medications Scheduled Aspirin (Aspirin Ec), 81 MG PO DAILY Doxazosin Mesylate (Doxazosin Mesylate), 1 TAB PO BID Fluticasone Prop/Salmeterol (Advair Diskus 250/50 60 Dose), 1 PUFF INH BID Furosemide (Furosemide), 40 MG PO DAILY Hydralazine Hcl (Apresoline), 25 MG PO TID Levothyroxine Sodium (Synthroid), 175 MCG PO DAILY Losartan Potassium (Cozaar), 100 MG PO DAILY Metoprolol Tartrate (Lopressor), 25 MG PO BID Ranitidine (Zantac), 150 MG PO BID Scheduled PRN Lorazepam (Lorazepam), 0.5 MG PO BID PRN for Anxiety Physical Exam Vital Signs Date Time Temp Pulse Resp B/P (MAP) Pulse Ox O2 Delivery O2 Flow Rate FiO2 03/19/17 19:40 76 20 152/71 97 Room Air 03/19/17 17:46 80 18 149/92 99 Room Air 03/19/17 16:08 36.7 73 20 145/90 98 Room Air General Appearance: WD/WN, no apparent distress, + pertinent finding ( overweight elderly female - no distress - AAO x 2.5) Head: normocephalic Eyes: normal inspection, EOMI ENT: normal ENT inspection, hearing grossly normal Neck: supple, thyroid normal Respiratory/Chest: chest non-tender, lungs clear, normal breath sounds, no respiratory distress, no accessory muscle use Cardiovascular: regular rate, rhythm, no edema, no gallop, no JVD Abdomen/GI: normal bowel sounds, non tender, soft Back: normal inspection, no CVA tenderness, no muscle spasm, normal range of motion Extremities/Musculoskelatal: normal inspection, no calf tenderness, + pertinent finding (Feat display neglect - nails do not appear to have been cut fro several years - skin is cobbled - tinea pedis and unguinium is apparent) Neurologic/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: 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, no motor/sensory deficits, alert, + pertinent finding (AAO x 2) Skin: + pertinent finding (Feat display neglect - nails do not appear to have been cut fro several years - skin is cobbled - tinea pedis and unguinium is apparent) Diagnostics Laboratory Results Results Past 24 Hours Test 03/19/17 17:54 03/19/17 19:21 03/19/17 19:27 03/19/17 19:35 Range/Units White Blood Count 5.68 4.8-10.8 K/uL Red Blood Count 3.28 4.2-5.4 M/uL Hemoglobin 10.4 12.0-16.0 g/dL Hematocrit 28.6 37-47 % Mean Corpuscular Volume 87.2 80-100 fL Mean Corpuscular Hemoglobin 31.7 25-34 pg Mean Corpuscular Hemoglobin Concent 36.4 32-36 g/dl Platelet Count 139 130-400 K/uL Mean Platelet Volume 8.9 7.4-10.4 fL Neutrophils (%) (Auto) 82.2 % Lymphocytes (%) (Auto) 9.3 % Monocytes (%) (Auto) 6.9 % Eosinophils (%) (Auto) 0.9 % Basophils (%) (Auto) 0.2 % Neutrophils # (Auto) 4.67 1.4-6.5 K/uL Lymphocytes # (Auto) 0.53 1.2-3.4 K/uL Monocytes # (Auto) 0.39 0.11-0.59 K/uL Eosinophils # (Auto) 0.05 0-0.5 K/uL Basophils # (Auto) 0.01 0-0.2 K/uL RDW Standard Deviation 40.5 36.4-46.3 fL RDW Coefficient of Variation 12.6 11.5-14.5 % Immature Granulocyte % (Auto) 0.5 % Immature Granulocyte # (Auto) 0.03 0.00-0.02 K/uL Sodium Level 110 108 136-145 mmol/L Potassium Level 3.2 3.4 3.5-5.1 mmol/L Chloride Level 74 75 98-107 mmol/L Carbon Dioxide Level 22 20 21-32 mmol/L Anion Gap 14.0 14.0 3-11 mmol/L Blood Urea Nitrogen 28 29 7-18 mg/dl Creatinine 1.70 1.70 0.60-1.20 mg/dl Est Creatinine Clear Calc Drug Dose 26.8 26.8 ml/min Estimated GFR () 33.6 33.6 Estimated GFR (Non- 29.0 29.0 BUN/Creatinine Ratio 16.6 16.8 10-20 Random Glucose 81 81 70-99 mg/dl Calcium Level 8.1 8.5 8.5-10.1 mg/dl Magnesium Level 2.0 1.8-2.4 mg/dl Total Bilirubin 1.1 0.2-1 mg/dl Aspartate Amino Transf (AST/SGOT) 25 15-37 U/L Alanine Aminotransferase (ALT/SGPT) 15 12-78 U/L Alkaline Phosphatase 129 45-117 U/L Total Protein 6.7 6.4-8.2 gm/dl Albumin 3.1 3.4-5.0 gm/dl Globulin 3.6 2.5-4.0 gm/dl Albumin/Globulin Ratio 0.9 0.9-2 Thyroid Stimulating Hormone (TSH) 19.600 0.300-4.500 uIu/ml Ethyl Alcohol mg/dL 34.0 0-3 mg/dl Urine Color YELLOW Urine Appearance TURBID CLEAR Urine pH 5.0 4.5-7.5 Urine Specific [place] 1.017 1.000-1.030 Urine Protein 3+ NEG Urine Glucose (UA) NEG NEG Urine Ketones NEG NEG Urine Occult Blood 1+ NEG Urine Nitrite NEG NEG Urine Bilirubin NEG NEG Urine Urobilinogen NEG NEG Urine Leukocyte Esterase LARGE NEG Urine WBC (Auto) >30 0-5 /hpf Urine RBC (Auto) >30 0-4 /hpf Urine Hyaline Casts (Auto) 1-5 0-5 /lpf Urine Epithelial Cells (Auto) >30 0-5 /lpf Urine Bacteria (Auto) 4+ NEG Test 03/19/17 21:02 Range/Units Microbiology Results 03/19/17 Urine Culture, Received Pending EKG Sinus - 1st degree AV block - LVH Impression Assessment and Plan 76 y/o F Hx SIADH, hypothyroidism, depression/anxiety, DM, suspected ETOH abuse. Pt presented with a complaint of depression as she had run out of her Lorazepam and may have just wanted a refill. She was placed in the mental health unit for assessment. Labs were drawn and her sodium was noted to be 108. The pt denies additional symptoms although she had an episode of vomiting while in the ER. She is remarkably awake and alert although per her family she may downplay any issues. She denies alcohol consumption, however, her family states that she drinks beer daily - they could not quantify an amount. Noncompliance with her medications is also suspected. 1) Severe hyponatremia - this is likely multifactorial. She has SIADH, hypothyroidism and may drink beer in excess. She also vomited once in the ER and is additionally hypokalemic. We have obtained a urine Na and OSM. We will provide NS only as she is asymptomatic and have ordered serial BMPs. Will monitor on telemetry for mental status changes or any seizure activity. She has been placed on fluid restriction. Due to her SIADH histroy we may need hypertonic saline in addition to Na tablets. I do not believe however that her current hypoNa is due solely to her SIADH so that correction to her baseline may take place with NS. This is to be determined based on her Na trend. In addition to the above we would request a Nephrology consult if her sodium does not correct as expected. 2) Suspected ETOH abuse - she have been mitigating withdrawal with benzodiazepines although we again cannot quantify her use which she denies entirely. We will provide her Ativan PRN and provide thiamine and folate daily. 3) CKD 3-4 - current creatinine is below baseline - will be trended 4) Hypothyroidism - elevated TSH is likely due to medical noncompliance - we have provided a single IV dose as this may be contributing to her hyponatremia. 5) Depression/anxiety - although she presented for this reason, it would likely be more helpful to assess her depression and perhaps her cognitive function and judgement when her sodium is corrected 6) DM - does not currently treat and her Glu is near low on admission - we will trend POCs without coverage to check monitor for hypoglycemia 7) Anemia - likely multifactorial - will check Iron, TIBC, B12 - trend CBC 8) We will apply topical antifungals to her feet and consult podiatry Full code - SCDs pending AM Hb total time for this admit including review of labs, meds, records - discussion with pt, family and ER attending - 45 min Level of Care Telemetry Resuscitation Status FULL RESUSCITATION VTE Prophylaxis VTE Risk Assessment Done? Y/N: Yes Risk Level: Moderate Given or contraindicated: SCD's
[2017-03-19 22:00] VITALS: BP 158/78; PULSE 76; TEMP 36.5; O2SAT 99; BMI 29.4
[2017-03-19 22:41] LABS: BUN/CREATININE RATIO 17.2 (10-20); CALCIUM 8.4 mg/dl (8.5-10.1); CREATININE 1.8 mg/dl (0.60-1.20); POTASSIUM 3.7 mmol/L (3.5-5.1)
[2017-03-19] MEDS ORDERED: LEVOTHYROXINE SODIUM INJ 100 MCG in SYRINGE 0 ML IV ONE (22:45)
[2017-03-19] MEDS ORDERED: LORAZEPAM INJ 1 MG in SYRINGE 0.5 ML IV PRN (22:45)
[2017-03-19 23:52] VITALS: BP 140/65; PULSE 76; TEMP 36.6; O2SAT 97
[2017-03-19] MEDS: SODIUM CHLORIDE 0.9% 1000ML 1,000 ML IV SCH (23:56)
[2017-03-20] MEDS: FLUTICASONE/SALMETEROL 250/50 (ADVAIR) 14 PUFF/1 INHALER INH SCH ×3 (00:04→21:04)
[2017-03-20] MEDS: THIAMINE HCL 100 MG TAB PO SCH ×2 (00:05→08:22)
[2017-03-20] MEDS: DOXAZosin MESYLATE TAB 4 MG TAB PO SCH ×3 (00:05→21:04)
[2017-03-20] MEDS: METOPROLOL TARTRATE 25 MG TAB PO SCH ×3 (00:06→21:04)
[2017-03-20] MEDS: RANITIDINE HCL 150 MG TAB PO SCH ×3 (00:06→21:04)
[2017-03-20] MEDS ORDERED: SODIUM CHLORIDE 1 GM TAB PO SCH (00:30)
[2017-03-20] MEDS ORDERED: PNEUMOCOCCAL ADMINISTRATION CHARGE ONE (01:15)
[2017-03-20] MEDS ORDERED: PNEUMOCOCCAL POLYSACCHARIDES 25 MCG/0.5 ML VIAL/SYR IM. ONE (01:15)
[2017-03-20 01:57] LABS: BUN/CREATININE RATIO 17.2 (10-20); CALCIUM 7.7 mg/dl (8.5-10.1); CREATININE 1.8 mg/dl (0.60-1.20); POTASSIUM 4.2 mmol/L (3.5-5.1)
[2017-03-20] MEDS: LORAZEPAM 2 MG/ML 1 ML VIAL IV PRN (02:08)
[2017-03-20 03:52] VITALS: BP 168/78; PULSE 61; TEMP 36.5; O2SAT 100
[2017-03-20 04:32] LABS: MEAN CORPUSCULAR HEMOGLOBIN 32.1 pg (25-34); MEAN CORPUSCULAR HGB CONC 36.9 g/dl (32-36); MEAN PLATELET VOLUME 9.1 fL (7.4-10.4); PLATELET COUNT 117 K/uL (130-400); RED BLOOD COUNT 2.99 M/uL (4.2-5.4); WHITE BLOOD COUNT 3.56 K/uL (4.8-10.8)
[2017-03-20 04:43] LABS: PROTHROMBIN TIME (PATIENT) 10.5 SECONDS (9.0-12.0)
[2017-03-20 04:59] LABS: BUN/CREATININE RATIO 18.1 (10-20); CALCIUM 7.8 mg/dl (8.5-10.1); CREATININE 1.7 mg/dl (0.60-1.20); POTASSIUM 3.5 mmol/L (3.5-5.1)
[2017-03-20] MEDS: LEVOTHYROXINE 175 MCG TAB PO SCH (06:10)
[2017-03-20] MEDS: SODIUM CHLORIDE 0.9% 1000ML 1,000 ML IV SCH (06:10)
[2017-03-20] MEDS: HEPARIN SOD 5000 UNIT/0.5 ML CARP SQ SCH ×4 (06:30→21:07)
[2017-03-20 08:06] VITALS: BP 193/75; PULSE 62; TEMP 36.6; O2SAT 94
[2017-03-20] MEDS: ASPIRIN 81 MG ECTAB PO SCH (08:21)
[2017-03-20] MEDS: LOSARTAN POTASSIUM 50 MG TAB PO SCH (08:21)
--- NOTE | 2017-03-20 08:24 | Family Medicine Progress Note ---
Progress Note Date of Service Mar 20, 2017. Subjective Pt evaluation today including: conversation w/ patient, physical exam, chart review, lab review, review of studies Found pt walking back from bathroom with minimal nursing assistance. She says she's not sure why she's in the hospital, but knows her name, date. Says last etoh was a beer a few weeks/months ago, denies otherwise. Denies any present pain, N/V/D, CP, SOB, or other concerns. Constitutional: No fever, No chills Respiratory: No cough, No shortness of breath Cardiovascular: No chest pain, No edema Abdomen: No pain, No nausea, No vomiting, No diarrhea Psychiatric: + substance abuse Medications Current Inpatient Medications Medications (Trade) Dose Ordered Sig/Devin Route Start Time Stop Time Status Last Admin Dose Admin Aspirin (Ecotrin Tab) 81 mg DAILY PO 03/20/17 09:00 04/19/17 08:59 Doxazosin Mesylate (Cardura Tab) 4 mg BID PO 03/19/17 21:00 04/18/17 20:59 03/20/17 00:05 4 MG Salmeterol Xinafoate/ Fluticasone (Advair Diskus 250/50 Inh) 1 puff BID INH 03/19/17 21:00 04/18/17 20:59 03/20/17 00:04 1 PUFF Hydralazine HCl (Apresoline Tab) 25 mg TID PO 03/19/17 21:00 04/18/17 20:59 03/20/17 00:06 25 MG Levothyroxine Sodium (Synthroid Tab) 175 mcg DAILYBB PO 03/20/17 06:00 04/19/17 05:59 03/20/17 06:10 175 MCG Lorazepam (Ativan Tab) 0.5 mg BID PRN PO 03/19/17 20:45 04/18/17 20:44 Losartan Potassium (coZAAR TAB) 100 mg DAILY PO 03/20/17 09:00 04/19/17 08:59 Metoprolol Tartrate (Lopressor Tab) 25 mg BID PO 03/19/17 21:00 04/18/17 20:59 03/20/17 00:06 25 MG Ranitidine HCl (zANTac TAB) 150 mg BID PO 03/19/17 21:00 04/18/17 20:59 03/20/17 00:06 150 MG Lorazepam (Ativan Inj) 1 mg Q4H PRN IV 03/19/17 20:45 04/18/17 20:44 03/20/17 02:08 1 MG Heparin Sodium (Porcine) (Heparin Sq 5000 Unit/0.5ml) 5,000 unit Q8H SQ 03/19/17 22:00 04/18/17 21:59 03/20/17 06:31 5,000 UNIT Acetaminophen (Tylenol Tab) 650 mg Q4H PRN PO 03/19/17 20:45 04/18/17 20:44 Al Hydrox/Mg Hydrox/Simethicone (Maalox Max Susp) 15 ml Q4H PRN PO 03/19/17 20:45 04/18/17 20:44 Magnesium Hydroxide (Milk Of Magnesia Susp) 30 ml Q12H PRN PO 03/19/17 20:45 04/18/17 20:44 Ondansetron HCl (Zofran Inj) 4 mg Q6H PRN IV 03/19/17 20:45 04/18/17 20:44 Polyethylene (Miralax Powder Packet) 17 gm DAILY PRN PO 03/19/17 20:45 04/18/17 20:44 Thiamine HCl (Vitamin B-1 Tab) 100 mg QAM PO 03/19/17 21:00 04/18/17 20:59 03/20/17 00:05 100 MG Folic Acid (Folvite Tab) 1 mg QAM PO 03/19/17 21:00 04/18/17 20:59 03/20/17 00:06 1 MG Lorazepam 1 mg/ Syringe 1 ml @ 1 mls/min Q4H PRN IV 03/19/17 22:45 04/18/17 22:44 Sodium Chloride 1,000 ml @ 90 mls/hr Q11H7M IV 03/19/17 23:15 03/20/17 20:24 03/20/17 06:10 90 MLS/HR Objective Vital Signs Date Time Temp Pulse Resp B/P (MAP) Pulse Ox O2 Delivery O2 Flow Rate FiO2 03/20/17 08:06 36.6 62 16 193/75 (114) 94 Room Air 03/20/17 04:00 Room Air 03/20/17 03:52 36.5 61 18 168/78 (108) 100 Room Air 03/19/17 23:59 Room Air 03/19/17 23:52 36.6 76 21 140/65 (90) 97 Room Air 03/19/17 22:00 36.5 76 18 158/78 99 Room Air 03/19/17 21:51 82 18 148/68 96 03/19/17 19:40 76 20 152/71 97 Room Air 03/19/17 17:46 80 18 149/92 99 Room Air 03/19/17 16:08 36.7 73 20 145/90 98 Room Air Physical Exam General Appearance: no apparent distress Cardiovascular: regular rate, rhythm, no edema, no murmur Abdomen: normal bowel sounds, non tender, soft Extremities: normal range of motion, no pedal edema, + pertinent finding (no clear resting tremor) Skin: warm/dry Laboratory Results 03/20/17 04:11 Test 03/19/17 17:54 03/19/17 19:27 03/19/17 19:35 03/19/17 22:53 Immature Granulocyte % (Auto) 0.5 % White Blood Count 5.68 K/uL (4.8-10.8) Red Blood Count 3.28 M/uL (4.2-5.4) Hemoglobin 10.4 g/dL (12.0-16.0) Hematocrit 28.6 % (37-47) Mean Corpuscular Volume 87.2 fL (80-100) Mean Corpuscular Hemoglobin 31.7 pg (25-34) Mean Corpuscular Hemoglobin Concent 36.4 g/dl (32-36) Platelet Count 139 K/uL (130-400) Mean Platelet Volume 8.9 fL (7.4-10.4) Neutrophils (%) (Auto) 82.2 % Lymphocytes (%) (Auto) 9.3 % Monocytes (%) (Auto) 6.9 % Eosinophils (%) (Auto) 0.9 % Basophils (%) (Auto) 0.2 % Neutrophils # (Auto) 4.67 K/uL (1.4-6.5) Lymphocytes # (Auto) 0.53 K/uL (1.2-3.4) Monocytes # (Auto) 0.39 K/uL (0.11-0.59) Eosinophils # (Auto) 0.05 K/uL (0-0.5) Basophils # (Auto) 0.01 K/uL (0-0.2) Immature Granulocyte # (Auto) 0.03 K/uL (0.00-0.02) Magnesium Level 2.0 mg/dl (1.8-2.4) Total Bilirubin 1.1 mg/dl (0.2-1) Aspartate Amino Transf (AST/SGOT) 25 U/L (15-37) Alanine Aminotransferase (ALT/SGPT) 15 U/L (12-78) Alkaline Phosphatase 129 U/L (45-117) Total Protein 6.7 gm/dl (6.4-8.2) Albumin 3.1 gm/dl (3.4-5.0) Globulin 3.6 gm/dl (2.5-4.0) Albumin/Globulin Ratio 0.9 (0.9-2) Thyroid Stimulating Hormone (TSH) 19.600 uIu/ml (0.300-4.500) Ethyl Alcohol mg/dL 34.0 mg/dl (0-3) Iron Level 100 mcg/dl (35-150) Total Iron Binding Capacity 221 mcg/dl (250-450) Urine Color YELLOW Urine Appearance TURBID (CLEAR) Urine pH 5.0 (4.5-7.5) Urine Specific [place] 1.017 (1.000-1.030) Urine Protein 3+ (NEG) Urine Glucose (UA) NEG (NEG) Urine Ketones NEG (NEG) Urine Occult Blood 1+ (NEG) Urine Nitrite NEG (NEG) Urine Bilirubin NEG (NEG) Urine Urobilinogen NEG (NEG) Urine Leukocyte Esterase LARGE (NEG) Urine WBC (Auto) >30 /hpf (0-5) Urine RBC (Auto) >30 /hpf (0-4) Urine Hyaline Casts (Auto) 1-5 /lpf (0-5) Urine Epithelial Cells (Auto) >30 /lpf (0-5) Urine Bacteria (Auto) 4+ (NEG) Urine Osmolality 209 mOms/kg (500-800) Urine Random Sodium 19 mEq/L Vitamin B12 Level 1290 pg/mL (211-911) Folate 10.56 ng/mL (>5.38) Test 03/20/17 04:11 03/20/17 06:48 03/20/17 07:33 Red Blood Count 2.99 M/uL (4.2-5.4) Mean Corpuscular Volume 87.0 fL (80-100) Mean Corpuscular Hemoglobin 32.1 pg (25-34) Mean Corpuscular Hemoglobin Concent 36.9 g/dl (32-36) RDW Standard Deviation 40.4 fL (36.4-46.3) RDW Coefficient of Variation 12.6 % (11.5-14.5) Mean Platelet Volume 9.1 fL (7.4-10.4) Prothrombin Time 10.5 SECONDS (9.0-12.0) Prothromb Time International Ratio 1.0 (0.9-1.1) Est Creatinine Clear Calc Drug Dose 26.8 ml/min Bedside Glucose 90 mg/dl (70-90) Assessment and Plan 76 y/o F Hx SIADH, hypothyroidism, depression/anxiety, DM, suspected ETOH abuse. Pt presented with a complaint of depression as she had run out of her Lorazepam and may have just wanted a refill. She was placed in the mental health unit for assessment. Labs were drawn and her sodium was noted to be 108. The pt denies additional symptoms although she had an episode of vomiting while in the ER. She is remarkably awake and alert although per her family she may downplay any issues. She denies alcohol consumption, however, her family states that she drinks beer daily - they could not quantify an amount. Noncompliance with her medications is also suspected. Severe hyponatremia - Likely multifactorial. She has SIADH, hypothyroidism and may drink beer in excess (though denies it on questioning). She also vomited once in the ER and is additionally hypokalemic. - Urine sodium 19, Urine OSM 209. - On NS IVF at 90 mL/hr. Will consider hypertonic saline if needed based on Na trending (thus far 110 -> 113). - Serial BMP's. - On fluid restriction. - Consider nephrology consult if not improving. Suspected ETOH abuse: Hard to know amt due to pt's denial of same (says last beer was weeks/months ago). - Ativan prn for DT coverage - Thiamine and folate daily. Hypothyroidism - elevated TSH is likely due to medical noncompliance - we have provided a single IV dose as this may be contributing to her hyponatremia. Anemia - likely multifactorial [ ] Will check Iron, TIBC, B12 - trend CBC Hypokalemia: 3.2 Given single dose of KCl tab. Feet fungal infection: We will apply topical antifungals to her feet and consult podiatry PMH CKD 3-4 - Reported current creatinine is below baseline (only lab in hospital record was 2.6 back in Oct 2016). - will be trended PMH Depression/anxiety - although she presented for this reason, it would likely be more helpful to assess her depression and perhaps her cognitive function and judgement when her sodium is corrected PMH DM - does not currently treat and her Glu is near low on admission - we will trend POCs without coverage to check monitor for hypoglycemia PMH HTN: On hydralazine, metoprolol. PMH Asthma: On advair. DVT prophy: SCD's initially Code status: Full code Will discuss all the above on attending rounds this morning. JUAN, PGY1 Machine Repair Person Tracking Resident Involvement: Resident Care Provided Care Provided: Adult Hospital Medicine (inpt rounds) History Resident Physician Supervision Note: I was present with Dr. Carlisle during the history and exam. I discussed the case with the resident and agree with the findings and plan as documented in the note. Any exceptions or clarifications are listed here. Pt seen and examined at bedside. Presently reports no tremulousness, chest pain , shortness of breath, lightheadedness, URIAS, vision/hearing changes, sensory changes. Back pain stable at baseline. General Appearance: no apparent distress, obese Eye Exam: bilateral eye PERRL, bilateral eye EOMI Respiratory: chest non-tender, lungs clear, normal breath sounds, no respiratory distress Cardiovascular: normal peripheral pulses, regular rate, rhythm, no murmur Gastrointestinal: normal bowel sounds, non tender, soft, no organomegaly Neurologic/Psychiatric: spindle maker II-XII nml as tested, alert, normal mood/affect, oriented x 3 Skin Characteristics: other (severe cracking hyperkeratosis of the b/l LE worse at the left heel) Assessment/Plan 76 y/o female h/o DMII, SIADH, suspected etOH abuse p/w hyponatremia to 107 Hyponatremia - q4hr monitoring w/ goal of ~6meq increase in 24 hrs - continue IVF @ 90cc/hr EtOH abuse hx - continue CIWA protocol b/l LE wounds - 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
[2017-03-20 08:37] LABS: BUN/CREATININE RATIO 17.8 (10-20); CALCIUM 8.3 mg/dl (8.5-10.1); CREATININE 1.7 mg/dl (0.60-1.20); POTASSIUM 3.6 mmol/L (3.5-5.1)
[2017-03-20] MEDS: LORAZEPAM 0.5 MG TAB PO PRN ×2 (08:37→21:11)
[2017-03-20 09:03] VITALS: BMI 29.4
[2017-03-20 10:16] VITALS: BP 169/92
[2017-03-20 11:00] LABS: BUN/CREATININE RATIO 17.7 (10-20); CALCIUM 8.2 mg/dl (8.5-10.1); CREATININE 1.8 mg/dl (0.60-1.20); POTASSIUM 4.1 mmol/L (3.5-5.1)
[2017-03-20 11:42] VITALS: BP 153/74; PULSE 56; TEMP 36.3; O2SAT 98
[2017-03-20 14:01] LABS: BUN/CREATININE RATIO 17.3 (10-20); CALCIUM 8.1 mg/dl (8.5-10.1); CREATININE 1.8 mg/dl (0.60-1.20); POTASSIUM 3.9 mmol/L (3.5-5.1)
[2017-03-20 15:04] VITALS: BP 107/63; PULSE 62; TEMP 36.7; O2SAT 91
[2017-03-20 16:52] LABS: BUN/CREATININE RATIO 15.6 (10-20); CREATININE 2.1 mg/dl (0.60-1.20); POTASSIUM 3.6 mmol/L (3.5-5.1)
[2017-03-20 19:59] VITALS: BP_SYST 184; BP_SYST 192; BP_DIAS 100; BP_DIAS 106; PULSE 65; TEMP 36.8; O2SAT 100
[2017-03-20 21:02] LABS: BUN/CREATININE RATIO 15.6 (10-20); CALCIUM 8.2 mg/dl (8.5-10.1); CREATININE 2.1 mg/dl (0.60-1.20); POTASSIUM 3.7 mmol/L (3.5-5.1)
[2017-03-21] VITALS (7 sets, daily range): BP systolic 136–195; BP diastolic 55–85; PULSE 56–73; TEMP 36.1–37; O2SAT 94–100
[2017-03-21 00:05] LABS: BUN/CREATININE RATIO 15.7 (10-20); CALCIUM 7.6 mg/dl (8.5-10.1); CREATININE 2.1 mg/dl (0.60-1.20); POTASSIUM 3.7 mmol/L (3.5-5.1)
[2017-03-21 04:48] LABS: BUN/CREATININE RATIO 16.7 (10-20); CALCIUM 7.8 mg/dl (8.5-10.1); CREATININE 1.9 mg/dl (0.60-1.20); POTASSIUM 3.7 mmol/L (3.5-5.1)
[2017-03-21] MEDS: LEVOTHYROXINE 175 MCG TAB PO SCH (05:49)
[2017-03-21] MEDS: HEPARIN SOD 5000 UNIT/0.5 ML CARP SQ SCH ×3 (05:55→22:08)
[2017-03-21] MEDS: DOXAZosin MESYLATE TAB 4 MG TAB PO SCH ×2 (07:25→21:50)
[2017-03-21] MEDS: METOPROLOL TARTRATE 25 MG TAB PO SCH ×2 (07:26→21:50)
[2017-03-21] MEDS: RANITIDINE HCL 150 MG TAB PO SCH ×2 (07:26→21:50)
[2017-03-21] MEDS: FLUTICASONE/SALMETEROL 250/50 (ADVAIR) 14 PUFF/1 INHALER INH SCH ×2 (07:27→21:47)
[2017-03-21] MEDS: ASPIRIN 81 MG ECTAB PO SCH (07:27)
[2017-03-21] MEDS: THIAMINE HCL 100 MG TAB PO SCH (07:27)
[2017-03-21] MEDS: LOSARTAN POTASSIUM 50 MG TAB PO SCH (07:27)
[2017-03-21] MEDS: LORAZEPAM 0.5 MG TAB PO PRN (07:35)
[2017-03-21 08:40] LABS: BUN/CREATININE RATIO 16.1 (10-20); CALCIUM 8.4 mg/dl (8.5-10.1); CREATININE 1.9 mg/dl (0.60-1.20); POTASSIUM 3.4 mmol/L (3.5-5.1)
[2017-03-21] MEDS: LORAZEPAM 2 MG/ML 1 ML VIAL IV PRN ×6 (08:40→23:48)
[2017-03-21] MEDS ORDERED: CHLORDIAZEPOXIDE 25 MG CAP PO SCH (12:00)
[2017-03-21] MEDS ORDERED: CHLORDIAZEPOXIDE 25MG 1ST DOSE PO ONE (12:30)
[2017-03-21] MEDS ORDERED: THIAMINE HCL 100 MG TAB PO SCH (12:30)
[2017-03-21 12:42] LABS: CALCIUM 8.4 mg/dl (8.5-10.1); POTASSIUM 3.8 mmol/L (3.5-5.1)
--- NOTE | 2017-03-21 17:14 | Family Medicine Progress Note ---
Progress Note Date of Service Mar 21, 2017. Subjective Pt evaluation today including: conversation w/ patient, physical exam, chart review, lab review Voiding: no voiding problems Patient somnolent and confused during visit today; on waking patient, she became quite ornery and disagreeable. Oriented x3. Wants to leave hospital Constitutional: No see HPI, No fever, No chills, No sweats, No weight loss, No weakness, No fatigue, No problem reported Eyes: No see HPI, No worsening of vision, No eye pain, No redness, No discharge, No diplopia, No problem reported ENT: No see HPI, No hearing loss, No unusual epistaxis, No nasal symptoms, No sore throat, No tinnitus, No dental problems, No trouble swallowing, No problem reported Abdomen: No see HPI, No pain, No nausea, No vomiting, No diarrhea, No constipation, No GI bleeding, No problem reported Female : No see HPI, No dysuria, No urinary frequency, No hematuria, No incontinence, No abnormal vaginal bleeding, No vaginal discharge, No problem reported Psychiatric: + substance abuse Skin: + new/changing skin lesions Medications Current Inpatient Medications Medications (Trade) Dose Ordered Sig/Devin Route Start Time Stop Time Status Last Admin Dose Admin Aspirin (Ecotrin Tab) 81 mg DAILY PO 03/20/17 09:00 04/19/17 08:59 03/21/17 07:27 81 MG Doxazosin Mesylate (Cardura Tab) 4 mg BID PO 03/19/17 21:00 04/18/17 20:59 03/21/17 21:50 4 MG Salmeterol Xinafoate/ Fluticasone (Advair Diskus 250/50 Inh) 1 puff BID INH 03/19/17 21:00 04/18/17 20:59 03/21/17 21:47 1 PUFF Hydralazine HCl (Apresoline Tab) 25 mg TID PO 03/19/17 21:00 04/18/17 20:59 03/21/17 21:50 25 MG Levothyroxine Sodium (Synthroid Tab) 175 mcg DAILYBB PO 03/20/17 06:00 04/19/17 05:59 03/21/17 05:49 175 MCG Lorazepam (Ativan Tab) 0.5 mg BID PRN PO 03/19/17 20:45 04/18/17 20:44 03/21/17 07:35 0.5 MG Losartan Potassium (coZAAR TAB) 100 mg DAILY PO 03/20/17 09:00 04/19/17 08:59 03/21/17 07:27 100 MG Metoprolol Tartrate (Lopressor Tab) 25 mg BID PO 03/19/17 21:00 04/18/17 20:59 03/21/17 21:50 25 MG Ranitidine HCl (zANTac TAB) 150 mg BID PO 03/19/17 21:00 04/18/17 20:59 03/21/17 21:50 150 MG Heparin Sodium (Porcine) (Heparin Sq 5000 Unit/0.5ml) 5,000 unit Q8H SQ 03/19/17 22:00 04/18/17 21:59 03/21/17 22:08 5,000 UNIT Acetaminophen (Tylenol Tab) 650 mg Q4H PRN PO 03/19/17 20:45 04/18/17 20:44 03/20/17 09:13 650 MG Al Hydrox/Mg Hydrox/Simethicone (Maalox Max Susp) 15 ml Q4H PRN PO 03/19/17 20:45 04/18/17 20:44 Magnesium Hydroxide (Milk Of Magnesia Susp) 30 ml Q12H PRN PO 03/19/17 20:45 04/18/17 20:44 Ondansetron HCl (Zofran Inj) 4 mg Q6H PRN IV 03/19/17 20:45 04/18/17 20:44 Polyethylene (Miralax Powder Packet) 17 gm DAILY PRN PO 03/19/17 20:45 04/18/17 20:44 Thiamine HCl (Vitamin B-1 Tab) 100 mg QAM PO 03/19/17 21:00 04/18/17 20:59 03/21/17 07:27 100 MG Folic Acid (Folvite Tab) 1 mg QAM PO 03/19/17 21:00 04/18/17 20:59 03/21/17 07:25 1 MG Lorazepam (Ativan Inj) PRN Dosing -Active Protocol Q1H PRN IV 03/21/17 12:00 04/20/17 11:59 03/21/17 21:52 1 MG Chlordiazepoxide (Librium Cap) 25 mg Q6@0200,0800,1400,2000 PO 03/21/17 19:30 03/22/17 08:01 03/21/17 19:58 25 MG Chlordiazepoxide (Librium Cap) 25 mg Q8H PO 03/22/17 14:00 03/23/17 06:01 Chlordiazepoxide (Librium Cap) 10 mg Q8H PO 03/23/17 14:00 03/24/17 06:01 Chlordiazepoxide (Librium Cap) 5 mg Q12H PO 03/24/17 18:00 03/25/17 06:01 Sodium Chloride 1,000 ml @ 90 mls/hr Q11H7M IV 03/21/17 22:00 04/20/17 21:59 03/21/17 22:08 90 MLS/HR Objective Physical Exam General Appearance: WD/WN, + mild distress Eyes: normal inspection, PERRL ENT: normal ENT inspection, + pertinent finding (Hard of hearing) Respiratory/Chest: lungs clear, normal breath sounds, no respiratory distress, no accessory muscle use Cardiovascular: regular rate, rhythm, no edema, no gallop, + bradycardia Abdomen: normal bowel sounds, non tender, soft Extremities: + pertinent finding (Severe hyperkeratotic tissue plantarly with areas of maceration bilaterally) Neurologic/Psychiatric: + pertinent finding (agitated) Laboratory Results 03/21/17 11:55 Test 03/21/17 11:55 03/21/17 19:50 Anion Gap 9.0 mmol/L (3-11) Est Creatinine Clear Calc Drug Dose 24.0 ml/min Estimated GFR () 27.6 Estimated GFR (Non- 23.8 BUN/Creatinine Ratio 15.0 (10-20) Calcium Level 8.4 mg/dl (8.5-10.1) Last Resulted 03/20/17 04:11 Last Resulted 03/21/17 11:55 Assessment and Plan 76 y/o F Hx SIADH, hypothyroidism, depression/anxiety, DM, suspected ETOH abuse. Pt presented with a complaint of depression as she had run out of her Lorazepam and may have just wanted a refill. She was placed in mental health unit for assessment. Labs were drawn and her sodium found to be 108. Pt denies additional symptoms although she had an episode of vomiting while in the ER. She denies alcohol consumption, however, her family states that she drinks beer daily - they could not quantify an amount. Noncompliance with her medications is also suspected. Severe hyponatremia - Likely multifactorial. She has SIADH, hypothyroidism and may drink beer in excess (though denies it on questioning). - Admitted with hypokalemia; has since stabilized - Urine sodium 19, Urine OSM 209. - On NS IVF at 90 mL/hr. Na increased by 8 in 24 hours; saline held until 10 pm on 03/21/17 - Serial BMP's. - On fluid restriction. - Consider nephrology consult if not improving. Suspected ETOH abuse: Hard to know amt due to pt's denial of same (says last beer was weeks/months ago). - Ativan prn for DT coverage - Thiamine and folate daily. - Patient placed on CIWA/AWSS protocol, required 3 mg ativan as she was agitated , hitting nurses, disoriented; patient resting when we left her at 6 pm. Bradycardia: HRs today running in upper 40s, even as low as 32. Called for junctional rhythms/mobitz/wenkebach/complete heart block rhythms seen on telemetry. - ordered EKG to correlate; will follow Hypothyroidism - elevated TSH is likely due to medical noncompliance - we have provided a single IV dose as this may be contributing to her hyponatremia. Anemia - likely multifactorial - ?baseline for her Hypokalemia: 3.2 Given single dose of KCl tab. Feet fungal infection: We will apply topical antifungals to her feet and consult podiatry PMH CKD 3-4 - Reported current creatinine is below baseline (only lab in hospital record was 2.6 back in Oct 2016). - will be trended PMH Depression/anxiety - although she presented for this reason, it would likely be more helpful to assess her depression and perhaps her cognitive function and judgement when her sodium is corrected PMH DM - does not currently treat and her Glu is near low on admission - we will trend POCs without coverage to check monitor for hypoglycemia PMH HTN: On hydralazine, metoprolol. PMH Asthma: On advair. DVT prophy: SCD's initially Code status: Full code Dispo: on telemetry History Resident Physician Supervision Note: I was present with Dr. Franklin during the history and exam. I discussed the case with the resident and agree with the findings and plan as documented in the note. Any exceptions or clarifications are listed here. Pt seen and examined at bedside. Minimal hx obtained 2/2 patient agitation but appears disoriented (thinks @ home) but responsive. 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
[2017-03-21] MEDS: CHLORDIAZEPOXIDE 25MG 1ST DOSE PO SCH (19:58)
[2017-03-21] MEDS ORDERED: SODIUM CHLORIDE 0.9% 1000ML 1,000 ML IV SCH (22:00)
[2017-03-22] MEDS: CHLORDIAZEPOXIDE 25MG 1ST DOSE PO SCH ×2 (02:59→08:00)
[2017-03-22] MEDS: LORAZEPAM 2 MG/ML 1 ML VIAL IV PRN ×2 (03:01→04:56)
[2017-03-22 05:12] VITALS: BP 154/68; PULSE 65; TEMP 36.4; O2SAT 100
[2017-03-22] MEDS: HEPARIN SOD 5000 UNIT/0.5 ML CARP SQ SCH ×3 (07:48→21:19)
[2017-03-22 07:56] VITALS: BP 162/66; PULSE 60; TEMP 35.8; O2SAT 100
[2017-03-22] MEDS: LEVOTHYROXINE 175 MCG TAB PO SCH (08:00)
[2017-03-22] MEDS: FLUTICASONE/SALMETEROL 250/50 (ADVAIR) 14 PUFF/1 INHALER INH SCH ×2 (08:00→21:13)
[2017-03-22 08:08] LABS: HEMATOCRIT 26.5 % (37-47); MEAN CELL VOLUME 90.8 fL (80-100); MEAN CORPUSCULAR HEMOGLOBIN 31.2 pg (25-34); MEAN CORPUSCULAR HGB CONC 34.3 g/dl (32-36); MEAN PLATELET VOLUME 9.4 fL (7.4-10.4); PLATELET COUNT 134 K/uL (130-400); RED BLOOD COUNT 2.92 M/uL (4.2-5.4); WHITE BLOOD COUNT 3.68 K/uL (4.8-10.8)
[2017-03-22 08:35] LABS: BUN/CREATININE RATIO 17.3 (10-20); CALCIUM 8.3 mg/dl (8.5-10.1); CREATININE 1.9 mg/dl (0.60-1.20); POTASSIUM 3.9 mmol/L (3.5-5.1)
[2017-03-22] MEDS: DOXAZosin MESYLATE TAB 4 MG TAB PO SCH ×2 (09:00→21:14)
[2017-03-22] MEDS: THIAMINE HCL 100 MG TAB PO SCH (09:00)
[2017-03-22] MEDS: ASPIRIN 81 MG ECTAB PO SCH (09:00)
[2017-03-22] MEDS: METOPROLOL TARTRATE 25 MG TAB PO SCH (09:00)
[2017-03-22] MEDS: RANITIDINE HCL 150 MG TAB PO SCH ×2 (09:00→21:15)
[2017-03-22] MEDS: LOSARTAN POTASSIUM 50 MG TAB PO SCH (09:00)
[2017-03-22 12:23] VITALS: BP 174/77; PULSE 54; TEMP 36.3; O2SAT 100
--- NOTE | 2017-03-22 12:28 | CARDIOLOGY CONSULTATION ---
DATE OF CONSULTATION: 03/22/2017 REQUESTING: Dr. Brito. PRIMING MIXTURE CARRIER: Primitivo Meadows D.O., [facility]. REASON FOR CONSULTATION: First degree AV block, Wenckebach, concern for higher degree AV block. Dear Dr. Brito, Thank you for requesting cardiology consultation on Therese with regards to her first degree AV block, Wenckebach physiology and possible high degree AV block. The history is obtained from the chart as she is essentially unarousable to answer appropriate questions this morning; therefore, a complete review of systems is unobtainable. Per the H&P, she presented with a complaint of depression as she had run out of her lorazepam and just wanted a refill. She was placed in the mental health unit for assessment, labs were drawn and she was found to be severely hyponatremic, which is likely chronic in nature given the fact she was asymptomatic. She did have an episode of vomiting in the Emergency Room. She denied alcohol consumption, although her ethyl alcohol level was positive and the family states that she drinks beer on a daily basis. She is also noncompliant with her medications. There was no mention of any cardiac symptoms in the history and physical as well as the followup SOAP notes. PAST MEDICAL HISTORY: 1. Diabetes mellitus type 2. 2. SIADH. 3. Coronary artery disease. 4. Gastroparesis. 5. Depression and anxiety. 6. Alcohol abuse. 7. Asthma. 8. Hypertension. 9. History of traumatic avulsion of the upper lip as a child. 10. Chronic kidney disease. 11. History of lower extremity edema. 12. Wound on her left foot. SOCIAL HISTORY: Denied any tobacco use. She is single. She lives alone. She is retired. ALLERGIES: TO PORK, TETRACYCLINE AND TRAMADOL. OUTPATIENT MEDICATIONS: Reviewed in detail. PHYSICAL EXAMINATION: GENERAL: She is sleeping soundly, was minimally arousable. VITAL SIGNS: Her heart rate is 60, her blood pressure 162/66, her sat is 100% on room air. HEENT: 2+ carotid upstrokes. No evidence of carotid bruits. Jugular venous pressure cannot be assessed. Sclera is anicteric. Her hearing is normal. LUNGS: Clear to auscultation bilaterally. No rales, rhonchi or wheezing. HEART: Regular rate and rhythm. No appreciable murmurs, rubs or gallops. ABDOMEN: Soft, nontender, nondistended, positive bowel sounds. EXTREMITIES: No edema on the right, trace edema on the left. Her telemetry strips were reviewed. She appears to have a first degree AV block with Wenckebach physiology. There was no obvious second degree AV block. Reviewing her EKGs, her baseline EKG on March 19 was sinus rhythm with first degree AV block at 272 milliseconds with LVH and QRS widening and secondary ST-T changes. EKG this morning at 7:22 revealed sinus rhythm with a first degree AV block and Wenckebach physiology, left ventricular hypertrophy, QRS widening and secondary ST-T changes. EKG to follow 6 minutes later, again sinus rhythm, the P waves are best seen in lead 2 and in V1 with what appears to be a likely long Wenckebach cycle. LABORATORY STUDIES: Hemoglobin 9.1, platelet count of 134. Sodium 107 upon admission. BUN 31, creatinine 1.8. Her TSH was 19.6. This morning sodium 127, potassium 3.9, chloride 96, BUN 33, creatinine 1.9. IMPRESSION: 1. 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 2. Hypothyroidism. 3. Chronic severe hyponatremia. 4. Alcohol abuse. 5. Hypertension. 6. Hypokalemia. As discussed with the primary service, I would reduce her metoprolol to Toprol-XL 25 mg daily. She has already received IV Synthroid, given her hypothyroidism and she is also undergoing a slow correction of her serum sodium as well as her potassium. I believe most of her EKG issues are related to her metabolic derangements. There is nothing to suggest high degree AV block at this point and there is no indication for pacemaker. With regards to her blood pressure, given her renal dysfunction and the fact she is on the max dose of losartan, I would consider amlodipine as the next blood pressure agent. I would avoid uptitration of her beta blockers, given her first degree AV block. At this point, we will continue to follow her with you. Thank you for allowing us to participate in her care.
[2017-03-22 13:01] LABS: CALCIUM 8.2 mg/dl (8.5-10.1); CREATININE 1.9 mg/dl (0.60-1.20); POTASSIUM 3.8 mmol/L (3.5-5.1)
[2017-03-22] MEDS: CHLORDIAZEPOXIDE 25MG Q8H DOSE PO SCH ×2 (14:00→21:17)
[2017-03-22 15:34] VITALS: BP 151/85; PULSE 67; TEMP 36.4; O2SAT 100
--- NOTE | 2017-03-22 15:36 | Family Medicine Progress Note ---
Progress Note Date of Service Mar 22, 2017. Subjective Pt evaluation today including: conversation w/ patient, physical exam, review of studies, review of inpatient medication list Patient unarousable due to ativan per CIWA/AWSS protocol; became agitated overnight; did not sleep well Constitutional: + fatigue Neurologic: + problem reported (agitation) Additional Comments: ROS limited due to patient somnolence from ativan; on trying to wake patient, she became agitated and insisted she be left alone Medications Current Inpatient Medications Medications (Trade) Dose Ordered Sig/Devin Route Start Time Stop Time Status Last Admin Dose Admin Aspirin (Ecotrin Tab) 81 mg DAILY PO 03/20/17 09:00 04/19/17 08:59 03/21/17 07:27 81 MG Doxazosin Mesylate (Cardura Tab) 4 mg BID PO 03/19/17 21:00 04/18/17 20:59 03/22/17 21:14 4 MG Salmeterol Xinafoate/ Fluticasone (Advair Diskus 250/50 Inh) 1 puff BID INH 03/19/17 21:00 04/18/17 20:59 03/22/17 21:13 1 PUFF Hydralazine HCl (Apresoline Tab) 25 mg TID PO 03/19/17 21:00 04/18/17 20:59 03/22/17 21:14 25 MG Levothyroxine Sodium (Synthroid Tab) 175 mcg DAILYBB PO 03/20/17 06:00 04/19/17 05:59 03/21/17 05:49 175 MCG Lorazepam (Ativan Tab) 0.5 mg BID PRN PO 03/19/17 20:45 04/18/17 20:44 03/21/17 07:35 0.5 MG Losartan Potassium (coZAAR TAB) 100 mg DAILY PO 03/20/17 09:00 04/19/17 08:59 03/21/17 07:27 100 MG Ranitidine HCl (zANTac TAB) 150 mg BID PO 03/19/17 21:00 04/18/17 20:59 03/22/17 21:15 150 MG Heparin Sodium (Porcine) (Heparin Sq 5000 Unit/0.5ml) 5,000 unit Q8H SQ 03/19/17 22:00 04/18/17 21:59 03/22/17 21:19 5,000 UNIT Acetaminophen (Tylenol Tab) 650 mg Q4H PRN PO 03/19/17 20:45 04/18/17 20:44 03/20/17 09:13 650 MG Al Hydrox/Mg Hydrox/Simethicone (Maalox Max Susp) 15 ml Q4H PRN PO 03/19/17 20:45 04/18/17 20:44 Magnesium Hydroxide (Milk Of Magnesia Susp) 30 ml Q12H PRN PO 03/19/17 20:45 04/18/17 20:44 Ondansetron HCl (Zofran Inj) 4 mg Q6H PRN IV 03/19/17 20:45 04/18/17 20:44 Polyethylene (Miralax Powder Packet) 17 gm DAILY PRN PO 03/19/17 20:45 04/18/17 20:44 Thiamine HCl (Vitamin B-1 Tab) 100 mg QAM PO 03/19/17 21:00 04/18/17 20:59 03/21/17 07:27 100 MG Folic Acid (Folvite Tab) 1 mg QAM PO 03/19/17 21:00 04/18/17 20:59 03/21/17 07:25 1 MG Lorazepam (Ativan Inj) PRN Dosing -Active Protocol Q1H PRN IV 03/21/17 12:00 04/20/17 11:59 03/22/17 04:56 2 MG Chlordiazepoxide (Librium Cap) 25 mg Q8H PO 03/22/17 14:00 03/23/17 06:01 03/22/17 21:17 25 MG Chlordiazepoxide (Librium Cap) 10 mg Q8H PO 03/23/17 14:00 03/24/17 06:01 Chlordiazepoxide (Librium Cap) 5 mg Q12H PO 03/24/17 18:00 03/25/17 06:01 Metoprolol Tartrate (Lopressor Tab) 25 mg DAILY PO 03/23/17 09:00 04/18/17 20:59 Neomycin/ Polymyxin/ Bacitracin (Neosporin Oint) 1 appln BID EXT 03/22/17 21:00 04/05/17 20:59 03/22/17 21:13 1 APPLN Objective Vital Signs Date Time Temp Pulse Resp B/P (MAP) Pulse Ox O2 Delivery O2 Flow Rate FiO2 03/22/17 19:34 36.4 82 18 179/73 (108) 99 Room Air 03/22/17 16:05 Room Air 03/22/17 15:34 36.4 67 18 151/85 (107) 100 Room Air 03/22/17 12:23 36.3 54 22 174/77 (109) 100 Room Air 03/22/17 12:00 Room Air 03/22/17 07:56 35.8 60 18 162/66 (98) 100 Room Air 03/22/17 07:30 Room Air 03/22/17 05:12 36.4 65 16 154/68 (96) 100 Room Air 03/22/17 04:00 Room Air 03/21/17 23:59 Room Air 03/21/17 23:58 37.0 69 19 139/75 (96) 95 Room Air Physical Exam General Appearance: WD/WN, no apparent distress Eyes: normal inspection, PERRL ENT: + pertinent finding ([place]; unknown lesion of upper lip) Neck: no JVD Respiratory/Chest: lungs clear, normal breath sounds, no respiratory distress, no accessory muscle use Cardiovascular: no edema, no JVD, no murmur, + bradycardia Abdomen: non tender, soft, no organomegaly Neurologic/Psychiatric: no motor/sensory deficits, + disoriented, + pertinent finding (ornery) Skin: + pertinent finding (Extremely Hyperkeratotic toenails and maceration of plantar surfaces of feel b/l) Laboratory Results Last Resulted 03/22/17 07:31 Last Resulted 03/22/17 20:00 Assessment and Plan 76 y/o F Hx SIADH, hypothyroidism, depression/anxiety, DM, ETOH abuse. Pt presented with a complaint of depression as she had run out of her Lorazepam and may have just wanted a refill. Labs were drawn and her sodium found to be 108. Pt denies additional symptoms although she had an episode of vomiting while in the ER. She denies alcohol consumption, however, her family states that she drinks beer and whiskey daily - they could not quantify an amount. Noncompliance with her medications is also suspected. Severe hyponatremia - Likely multifactorial. She has SIADH, hypothyroidism and may drink ETOH in excess (though denies it on questioning). - Admitted with hypokalemia; has since stabilized; maintain at 4.0 - On NS IVF at 90 mL/hr. Na increased by 8 in 24 hours; saline DCd this AM - Serial BMP's, q4h until optimized; consider D5W if more than 8-10 rise in 24 hours overnight; see order - On fluid restriction. - Consider nephrology consult if not improving. Suspected ETOH abuse: Hard to know amt due to pt's denial of same (says last beer was weeks/months ago). - Ativan prn for DT coverage - Thiamine and folate daily. - Patient placed on CIWA/AWSS protocol, required more ativan as she was agitated , hitting nurses, disoriented; patient resting throughout day and when we left her at 6 pm. Bradycardia: HRs today running in upper 40s, even as low as 32. EKG changes referred to cardio; thanks for recommendations PER CARDIO: - reduce metoprolol to Toprol-XL 25 mg daily. She has already received IV Synthroid, given her hypothyroidism and she is also undergoing a slow correction of her serum sodium as well as her potassium. - most of her EKG issues are likely related to her metabolic derangements. There is nothing to suggest high degree AV block at this point and there is no indication for pacemaker. Hypothyroidism - elevated TSH is likely due to medical noncompliance - we have provided a single IV dose as this may be contributing to her hyponatremia. Anemia - likely multifactorial - ?baseline for her Hypokalemia: 3.2 on admission, Given single dose of KCl tab. Maintain at 4.0; Most recent level 4.1 Feet fungal infection: We will apply topical antifungals to her feet - Hyperkeratotic nails assessed by Dr. Lopez ([facility]) today; immense thanks; toenails debrided and both great hallux nails removed; currently bandaged. PMH CKD 3-4 - Reported current creatinine is below baseline (only lab in hospital record was 2.6 back in Oct 2016). - will be trended PMH Depression/anxiety - although she presented for this reason, it would likely be more helpful to assess her depression and perhaps her cognitive function and judgement when her sodium is corrected PMH DM - does not currently treat and her Glu is near low on admission - we will trend POCs without coverage to check monitor for hypoglycemia --Still waiting for HbA1c to return from lab. PMH HTN: On hydralazine, metoprolol. PER CARDIO: given her renal dysfunction and the fact she is on the max dose of losartan, I would consider amlodipine as the next blood pressure agent. I would avoid uptitration of her beta blockers, given her first degree AV block. PMH Asthma: On advair. DVT prophy: SCD's initially Code status: Full code Dispo: on telemetry History Resident Physician Supervision Note: I was present with Dr. Franklin during the history and exam. I discussed the case with the resident and agree with the findings and plan as documented in the note. Any exceptions or clarifications are listed here. Pt seen and examined at bedside. Sedated on CIWA protocol w/ lorazepam but arousable. Not answering questions with anything but obscenity. Slept through podiatric nail debridement. Denies pain. General Appearance: no apparent distress, obese Respiratory: chest non-tender, lungs clear, normal breath sounds, no respiratory distress Cardiovascular: normal peripheral pulses, regular rate, rhythm, no murmur Extremities: other (onychogryphosis of all nails addressed in room w/ mineral engineer w/ resection and removal of affected nails) Assessment/Plan 76 y/o female h/o DMII, SIADH, suspected etOH abuse p/w hyponatremia to 107 Will likely need significant supportive care in oupt setting considering level of debility of b/l LE and using severity of etOH induced hyponatremia as gauge for self-care. Case management is passively aware without present intent. Pt should be by for an evaluation once she is less sedated from withdrawal protocol. Agitation - 2/2 alcohol withdrawal w/ innumerablebeers/day hx - CIWA protocol w / 1:1 in room as needed Hyponatremia - resolved to 130. Consider small bolus of D5 water tonight if continued rise. 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 Per podiatry, would require outpatient surgical suite for further management of wounds. Continue antifungal scrubs and wound care/dressing. Anemia - stable CKDIV - baseline Cr ~1.8 Electrolyte abnormality - trend, repeat as needed by PO Depression/anxiety - reports outpatient lorazepam for treatment, currently on CIWA DMII - ISS HTN - toprol and hydralazine Asthma - stable - continue advair Resident Tracking Resident Involvement: Resident Care Provided Care Provided: Adult Hospital Medicine
[2017-03-22 16:42] LABS: BUN/CREATININE RATIO 13.7 (10-20); CREATININE 2.2 mg/dl (0.60-1.20); POTASSIUM 4.1 mmol/L (3.5-5.1)
--- NOTE | 2017-03-22 19:15 | Podiatry Consultation ---
Podiatry Consultation Date of Consultation: Mar 22, 2017. Attending Physician: Enzo Brito MD Past Medical/Surgical History Medical Problems: (1) Acute renal failure Status: Acute (2) Anxiety Status: Acute (3) CKD (chronic kidney disease) Status: Acute (4) Dehydration Status: Acute (5) Dehydration Status: Acute (6) Depression Status: Acute (7) Diarrhea Status: Acute (8) Hyponatremia Status: Acute (9) Hyponatremia Status: Acute (10) Multiple excoriations Status: Acute (11) Nausea & vomiting Status: Acute (12) Pruritus Status: Acute Family History Diabetes mellitus Social History Smoking Status: Never Smoker Smokeless Tobacco Use: No Alcohol Use: heavy Drug Use: none Marital Status: single Housing Status: lives alone Occupation Status: retired Allergies Coded Allergies: Pork (Unverified Allergy, Unknown, unknown, 03/19/17) Pork Allergy (Unverified Allergy, Unknown, unknown, 03/19/17) Tetracycline (Unverified Allergy, Unknown, unknown(not 100% sure if she's allergic to it), 03/19/17) Tramadol (Verified Adverse Reaction, Unknown, dizzy, emesis, 03/19/17) Home Medications Scheduled Aspirin (Aspirin Ec), 81 MG PO DAILY Doxazosin Mesylate (Doxazosin Mesylate), 1 TAB PO BID Fluticasone Prop/Salmeterol (Advair Diskus 250/50 60 Dose), 1 PUFF INH BID Furosemide (Furosemide), 40 MG PO DAILY Hydralazine Hcl (Apresoline), 25 MG PO TID Levothyroxine Sodium (Synthroid), 175 MCG PO DAILY Losartan Potassium (Cozaar), 100 MG PO DAILY Metoprolol Tartrate (Lopressor), 25 MG PO BID Ranitidine (Zantac), 150 MG PO BID Scheduled PRN Lorazepam (Lorazepam), 0.5 MG PO BID PRN for Anxiety Current Inpatient Medications Current Inpatient Medications Medications (Trade) Dose Ordered Sig/Devin Route Start Time Stop Time Status Last Admin Dose Admin Aspirin (Ecotrin Tab) 81 mg DAILY PO 03/20/17 09:00 04/19/17 08:59 03/21/17 07:27 81 MG Doxazosin Mesylate (Cardura Tab) 4 mg BID PO 03/19/17 21:00 04/18/17 20:59 03/21/17 21:50 4 MG Salmeterol Xinafoate/ Fluticasone (Advair Diskus 250/50 Inh) 1 puff BID INH 03/19/17 21:00 04/18/17 20:59 03/21/17 21:47 1 PUFF Hydralazine HCl (Apresoline Tab) 25 mg TID PO 03/19/17 21:00 04/18/17 20:59 03/22/17 15:29 25 MG Levothyroxine Sodium (Synthroid Tab) 175 mcg DAILYBB PO 03/20/17 06:00 04/19/17 05:59 03/21/17 05:49 175 MCG Lorazepam (Ativan Tab) 0.5 mg BID PRN PO 03/19/17 20:45 04/18/17 20:44 03/21/17 07:35 0.5 MG Losartan Potassium (coZAAR TAB) 100 mg DAILY PO 03/20/17 09:00 04/19/17 08:59 03/21/17 07:27 100 MG Ranitidine HCl (zANTac TAB) 150 mg BID PO 03/19/17 21:00 04/18/17 20:59 03/21/17 21:50 150 MG Heparin Sodium (Porcine) (Heparin Sq 5000 Unit/0.5ml) 5,000 unit Q8H SQ 03/19/17 22:00 04/18/17 21:59 03/22/17 15:33 5,000 UNIT Acetaminophen (Tylenol Tab) 650 mg Q4H PRN PO 03/19/17 20:45 04/18/17 20:44 03/20/17 09:13 650 MG Al Hydrox/Mg Hydrox/Simethicone (Maalox Max Susp) 15 ml Q4H PRN PO 03/19/17 20:45 04/18/17 20:44 Magnesium Hydroxide (Milk Of Magnesia Susp) 30 ml Q12H PRN PO 03/19/17 20:45 04/18/17 20:44 Ondansetron HCl (Zofran Inj) 4 mg Q6H PRN IV 03/19/17 20:45 04/18/17 20:44 Polyethylene (Miralax Powder Packet) 17 gm DAILY PRN PO 03/19/17 20:45 04/18/17 20:44 Thiamine HCl (Vitamin B-1 Tab) 100 mg QAM PO 03/19/17 21:00 04/18/17 20:59 03/21/17 07:27 100 MG Folic Acid (Folvite Tab) 1 mg QAM PO 03/19/17 21:00 04/18/17 20:59 03/21/17 07:25 1 MG Lorazepam (Ativan Inj) PRN Dosing -Active Protocol Q1H PRN IV 03/21/17 12:00 04/20/17 11:59 03/22/17 04:56 2 MG Chlordiazepoxide (Librium Cap) 25 mg Q8H PO 03/22/17 14:00 03/23/17 06:01 Chlordiazepoxide (Librium Cap) 10 mg Q8H PO 03/23/17 14:00 03/24/17 06:01 Chlordiazepoxide (Librium Cap) 5 mg Q12H PO 03/24/17 18:00 03/25/17 06:01 Metoprolol Tartrate (Lopressor Tab) 25 mg DAILY PO 03/23/17 09:00 04/18/17 20:59 Review of Systems Neurologic: + memory loss, + paralysis, + weakness, + numbness/tingling ( negative reponse to 5.07 guage monofilament test,to all toes,dorsal and plantar both feet.), + vertigo, + balance problems, + problem reported Integumentary: + new/changing skin lesions (Multiple calluses with ulcerations beneath them ,both heels and 1st MP joints), + problem reported ( onychogryphosis of all ten toenails.Both 1st nails 6-7 mm thick,100% yellowed.Other 8 nails,5 mm thick,100% yellowed.) Physical Exam Date Time Temp Pulse Resp B/P (MAP) Pulse Ox O2 Delivery O2 Flow Rate FiO2 03/22/17 16:05 Room Air 03/22/17 15:34 36.4 67 18 151/85 (107) 100 Room Air 03/22/17 12:23 36.3 54 22 174/77 (109) 100 Room Air 03/22/17 12:00 Room Air 03/22/17 07:56 35.8 60 18 162/66 (98) 100 Room Air 03/22/17 07:30 Room Air 03/22/17 05:12 36.4 65 16 154/68 (96) 100 Room Air 03/22/17 04:00 Room Air 03/21/17 23:59 Room Air 03/21/17 23:58 37.0 69 19 139/75 (96) 95 Room Air 03/21/17 20:00 Room Air 03/21/17 18:45 36.5 57 20 136/55 (82) 98 Room Air Extremities/Musculoskelatal: + inflammation (Both great toes,with dried blood around nail plates.) Laboratory Results Last 24 Hours Test 03/22/17 07:31 03/22/17 12:07 03/22/17 16:10 White Blood Count 3.68 K/uL Red Blood Count 2.92 M/uL Hemoglobin 9.1 g/dL Hematocrit 26.5 % Mean Corpuscular Volume 90.8 fL Mean Corpuscular Hemoglobin 31.2 pg Mean Corpuscular Hemoglobin Concent 34.3 g/dl RDW Standard Deviation 42.2 fL RDW Coefficient of Variation 12.7 % Platelet Count 134 K/uL Mean Platelet Volume 9.4 fL Sodium Level 127 mmol/L 129 mmol/L 130 mmol/L Potassium Level 3.9 mmol/L 3.8 mmol/L 4.1 mmol/L Chloride Level 96 mmol/L 98 mmol/L 99 mmol/L Carbon Dioxide Level 24 mmol/L 23 mmol/L 25 mmol/L Anion Gap 7.0 mmol/L 8.0 mmol/L 6.0 mmol/L Blood Urea Nitrogen 33 mg/dl 30 mg/dl 30 mg/dl Creatinine 1.90 mg/dl 1.90 mg/dl 2.20 mg/dl Est Creatinine Clear Calc Drug Dose 25.3 ml/min 25.3 ml/min 21.8 ml/min Estimated GFR () 29.4 29.4 24.6 Estimated GFR (Non- 25.3 25.3 21.2 BUN/Creatinine Ratio 17.3 16.0 13.7 Random Glucose 99 mg/dl 94 mg/dl 91 mg/dl Calcium Level 8.3 mg/dl 8.2 mg/dl 8.0 mg/dl Assessment & Plan History of Type 2,diabetes mellitus,and chronic kidney disease. Biomechanical evaluation in recumbent position only: Excessive bilateral: Forefoot varus.ST joint pronation. Multiple onychogryphotic toenails,tinea unguium Paronychia of both great toes,secondary to severe onychogryphosis. Order referral to woundcare and diabetic foot clinic for care of foot calluses and ulcerations. Debridement of all lesser toenails with manual nippers at bedside today. Both 1st toes:diagnosis:paronychia,severe onychogryphosis.I decided to remove the toenails to prevent worsening of toe infection.Patient was only semiconscious. Avulsion of both 1st toenail plates. Bases of the toes were alcohol prepped . Each 1st toe was injected with 1.5 ml. of 1% Lidocaine and 1.5 ml.of 0.5% Marcaine to obtain anaesthesia. Using a sterile hemostat,each nail plate was avulsed to beneath the eponychium.Cleansed with alcohol solution. Then each was dressed with triple antibiotic cream ,sterile gauze 3x3, and coban ,with paper tape. The toes will be redressed twice daily, after cleansing with nss ,drying and applying triple antibiotic cream,sterile gauze and paper tape,for 14 days.
[2017-03-22 19:34] VITALS: BP 179/73; PULSE 82; TEMP 36.4; O2SAT 99
[2017-03-22 20:28] LABS: BUN/CREATININE RATIO 14.5 (10-20); CALCIUM 8.3 mg/dl (8.5-10.1); CREATININE 2.2 mg/dl (0.60-1.20); POTASSIUM 4.1 mmol/L (3.5-5.1)
[2017-03-22] MEDS: NEOMYCIN/POLYMYX/BACITR OINT 15 GM TUBE EXT SCH (21:13)
[2017-03-22 23:08] VITALS: BP 169/73; PULSE 73; TEMP 36.5; O2SAT 99
[2017-03-22 23:58] LABS: BUN/CREATININE RATIO 13.7 (10-20); CALCIUM 8.3 mg/dl (8.5-10.1); CREATININE 2.3 mg/dl (0.60-1.20); POTASSIUM 3.9 mmol/L (3.5-5.1)
[2017-03-23] VITALS (8 sets, daily range): BP systolic 142–174; BP diastolic 64–82; PULSE 62–65; TEMP 36.1–36.7; O2SAT 97–100
[2017-03-23 04:12] LABS: BUN/CREATININE RATIO 13.6 (10-20); CALCIUM 7.9 mg/dl (8.5-10.1); CREATININE 2.3 mg/dl (0.60-1.20); POTASSIUM 3.8 mmol/L (3.5-5.1)
--- NOTE | 2017-03-23 05:36 | Family Medicine Progress Note ---
Progress Note Date of Service Mar 23, 2017. Subjective Pt evaluation today including: conversation w/ patient, physical exam, chart review, review of studies Found pt waking up a bit after getting her vitals taken. Denies any pain but still seems sleepy. Knows her name, , year, and thinks she's in the hospital (but got city wrong). No reported acute concerns. Nursing notes mostly report sleeping overnight. Constitutional: No fever, No chills Respiratory: No cough, No shortness of breath Cardiovascular: No chest pain Psychiatric: + substance abuse (alcohol suspected), + problem reported ( agitation) Skin: + problem reported (bilateral feet skin issues) Additional Comments: ROS limited by pt's somnolence early this AM Medications Current Inpatient Medications Medications (Trade) Dose Ordered Sig/Devin Route Start Time Stop Time Status Last Admin Dose Admin Aspirin (Ecotrin Tab) 81 mg DAILY PO 03/20/17 09:00 04/19/17 08:59 03/23/17 08:05 81 MG Doxazosin Mesylate (Cardura Tab) 4 mg BID PO 03/19/17 21:00 04/18/17 20:59 03/23/17 08:05 4 MG Salmeterol Xinafoate/ Fluticasone (Advair Diskus 250/50 Inh) 1 puff BID INH 03/19/17 21:00 04/18/17 20:59 03/23/17 08:05 1 PUFF Hydralazine HCl (Apresoline Tab) 25 mg TID PO 03/19/17 21:00 04/18/17 20:59 03/23/17 08:05 25 MG Levothyroxine Sodium (Synthroid Tab) 175 mcg DAILYBB PO 03/20/17 06:00 04/19/17 05:59 03/23/17 05:42 175 MCG Lorazepam (Ativan Tab) 0.5 mg BID PRN PO 03/19/17 20:45 04/18/17 20:44 03/21/17 07:35 0.5 MG Losartan Potassium (coZAAR TAB) 100 mg DAILY PO 03/20/17 09:00 04/19/17 08:59 03/23/17 08:06 100 MG Ranitidine HCl (zANTac TAB) 150 mg BID PO 03/19/17 21:00 04/18/17 20:59 03/23/17 08:05 150 MG Heparin Sodium (Porcine) (Heparin Sq 5000 Unit/0.5ml) 5,000 unit Q8H SQ 03/19/17 22:00 04/18/17 21:59 03/23/17 05:43 5,000 UNIT Acetaminophen (Tylenol Tab) 650 mg Q4H PRN PO 03/19/17 20:45 04/18/17 20:44 03/20/17 09:13 650 MG Al Hydrox/Mg Hydrox/Simethicone (Maalox Max Susp) 15 ml Q4H PRN PO 03/19/17 20:45 04/18/17 20:44 Magnesium Hydroxide (Milk Of Magnesia Susp) 30 ml Q12H PRN PO 03/19/17 20:45 04/18/17 20:44 Ondansetron HCl (Zofran Inj) 4 mg Q6H PRN IV 03/19/17 20:45 04/18/17 20:44 Polyethylene (Miralax Powder Packet) 17 gm DAILY PRN PO 03/19/17 20:45 04/18/17 20:44 Thiamine HCl (Vitamin B-1 Tab) 100 mg QAM PO 03/19/17 21:00 04/18/17 20:59 03/23/17 08:07 100 MG Folic Acid (Folvite Tab) 1 mg QAM PO 03/19/17 21:00 04/18/17 20:59 03/23/17 08:06 1 MG Lorazepam (Ativan Inj) PRN Dosing -Active Protocol Q1H PRN IV 03/21/17 12:00 04/20/17 11:59 03/22/17 04:56 2 MG Chlordiazepoxide (Librium Cap) 10 mg Q8H PO 03/23/17 14:00 03/24/17 06:01 Chlordiazepoxide (Librium Cap) 5 mg Q12H PO 03/24/17 18:00 03/25/17 06:01 Metoprolol Tartrate (Lopressor Tab) 25 mg DAILY PO 03/23/17 09:00 04/18/17 20:59 03/23/17 08:06 25 MG Neomycin/ Polymyxin/ Bacitracin (Neosporin Oint) 1 appln BID EXT 03/22/17 21:00 04/05/17 20:59 03/23/17 08:05 1 APPLN Objective Vital Signs Date Time Temp Pulse Resp B/P (MAP) Pulse Ox O2 Delivery O2 Flow Rate FiO2 03/23/17 07:13 36.1 65 18 161/64 (96) 100 Room Air 03/23/17 04:00 Room Air 03/23/17 03:03 36.7 64 20 169/77 (107) 99 Room Air 03/23/17 00:00 Room Air 03/22/17 23:08 36.5 73 20 169/73 (105) 99 Room Air 03/22/17 20:00 Room Air 03/22/17 19:34 36.4 82 18 179/73 (108) 99 Room Air 03/22/17 16:05 Room Air 03/22/17 15:34 36.4 67 18 151/85 (107) 100 Room Air 03/22/17 12:23 36.3 54 22 174/77 (109) 100 Room Air 03/22/17 12:00 Room Air Physical Exam General Appearance: no apparent distress Respiratory/Chest: lungs clear, normal breath sounds, no respiratory distress Cardiovascular: regular rate, rhythm, no edema, no murmur Abdomen: normal bowel sounds, non tender, soft Extremities: + pertinent finding (bilateral feet dressed. small amt of dried blood at both great toes, otherwise dressing c/d/i) Neurologic/Psychiatric: alert, oriented x 3 (see subjective) Laboratory Results 03/23/17 03:46 Test 03/22/17 20:23 03/23/17 03:46 03/23/17 08:21 Bedside Glucose 109 mg/dl (70-90) Anion Gap 8.0 mmol/L (3-11) Est Creatinine Clear Calc Drug Dose 20.9 ml/min Estimated GFR () 23.3 Estimated GFR (Non- 20.1 BUN/Creatinine Ratio 13.6 (10-20) Calcium Level 7.9 mg/dl (8.5-10.1) Assessment and Plan 76 y/o F Hx SIADH, hypothyroidism, depression/anxiety, DM, suspected ETOH abuse. Pt presented with a complaint of depression as she had run out of her Lorazepam and may have just wanted a refill. She was placed in the mental health unit for assessment. Labs were drawn and her sodium was noted to be 108. The pt denies additional symptoms although she had an episode of vomiting while in the ER. She is remarkably awake and alert although per her family she may downplay any issues. She denies alcohol consumption, however, her family states that she drinks beer daily - they could not quantify an amount. Noncompliance with her medications is also suspected. Severe hyponatremia: Admit Na 107. Urine sodium 19, Urine Osm 209. Origin likely multifactorial, with PMH SIAD, hypothyroidism, and suspected daily etoh intake (though pt denies the most latter). Initial sodium repletion gradually with goal of ~6 mEq increases in 24 hours. Tx started with 0.9% NS IVF at 90 mL /hr, along with q4h serial BMPs. Placed on fluid restriction as well. Na has been trending upwards, with IVF held briefly to control rate of rise, then stopped morning of 17Sep. - Ongoing lab sodium monitoring Bradycardia: Noted on 15-16Sep to be bradycardic as low as 32 bpm. EKG on 17Sep at 0722 noted to be sinus tiffani 43 with a question of 2nd degree AV block. 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 Likely related to her metabolic issues. - Reduced metoprolol to Toprol-XL 25 mg daily (done as inpt). If new blood pressure agent needed, consider amlodipine (and not further increase in b- blockers). Suspected ETOH abuse / Agitation: EtOH on admit 34 mg/dL. Hard to know pts daily amount of intake due to her denial of drinking frequently at all (says last beer was weeks/months ago). Started CIWA protocol on admit to include ativan prn for DT coverage/agitation as well as thiamine & folate daily. Had periods of agitation (hitting nurses, disoriented), so was given ativan. - Started on librium on 16Sep. Bilateral foot skin changes: Appearance of chronic keratotic skin buildup with concerns for underlying further tissue damage. Also has diseased (likely fungal ) toenails lacking trimming in recent weeks/months. [ ] Consult wound care (appreciate recs) - 17Sep Podiatry consult (appreciate recs): Noted onychogryphotic toenails, paronychia. Debridement performed to include removal of great toenails. - will likely need outpatient wound clinic f/u - Continue antifungal scrubs and wound care/dressing. Hypokalemia: Admit K 3.2. Given single dose of KCl tab. Serial rechecks now within normal range. Anemia: Likely associated with hx CKD. On this admit, folate level normal, vitamin B12 level elevated, iron level normal, TIBC level low. As inpt, Hb trending downwards from 10.4 -> 9.6 -> 9.1, some of which may be fluid repletion. Hypothyroidism: Elevated TSH (19.6) is likely due to medical noncompliance. To address compliance as outpatient. 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 Current trending as inpt thus far has been trending upwards from 1.7 to 2.3. - Plan to hold losartan on 18Sep in case is contributing to elevated Cr. - Will readdress if continues to track upwards. Depression / Anxiety: Reportedly on lorazepam as outpt. Presently on [facility] benzodiazepines. Will likely need another agent to treat. Will not be able to give SSRI. Review further once patient awake DM: Reportedly not on any related medication as outpt. - Trending glucose levels and placed on insulin sliding scale for coverage while inpt. [ ] HbA1c level pending. HTN: On hydralazine, metoprolol, doxazosin (though at 4 mg BID instead of prior reported 1 mg dose BID), losartan. - 18Sep: Changed metoprolol tartrate to succinate 25 mg PO daily. Asthma: On advair. Disposition: Case management likely to eval once pt is less sedated from CINV protocol. [ ] Consulted PT (eval appreciated) - Consulted OT (eval appreciated): Attempted eval on 16Sep but pt too agitated. 17Sep eval put on hold as well. DVT prophy: Heparin. Code status: Full code Resident Tracking Resident Involvement: Resident Care Provided Care Provided: Adult Hospital Medicine (inpt rounds) Reviewed: Pt Seen/Exam by Me History was agitated all night and into the morning. sound asleep at the time of exam. Constitutional: denies: fever General Appearance: no apparent distress Respiratory: lungs clear, no respiratory distress Cardiovascular: regular rate, rhythm Extremities: other (both foot with dressing. lichenification in the sole and disfigured thickened nails) Neurologic/Psychiatric: other (somnolent) Assessment/Plan Resident Physician Supervision Note: I was present with Dr. Carlisle in bedside. I verified the wong history and physical, reviewed labs and image studies, discussed the case with the resident and agree with the findings and care plan.
[2017-03-23] MEDS: CHLORDIAZEPOXIDE 25MG Q8H DOSE PO SCH (05:41)
[2017-03-23] MEDS: LEVOTHYROXINE 175 MCG TAB PO SCH (05:42)
[2017-03-23] MEDS: HEPARIN SOD 5000 UNIT/0.5 ML CARP SQ SCH ×3 (05:43→20:56)
[2017-03-23 06:01] LABS: ESTIMATED AVERAGE GLUCOSE 94 mg/dl; HA1C FLAG Normal (Normal)
[2017-03-23] MEDS: DOXAZosin MESYLATE TAB 4 MG TAB PO SCH ×2 (08:05→20:53)
[2017-03-23] MEDS: NEOMYCIN/POLYMYX/BACITR OINT 15 GM TUBE EXT SCH ×2 (08:05→20:52)
[2017-03-23] MEDS: ASPIRIN 81 MG ECTAB PO SCH (08:05)
[2017-03-23] MEDS: FLUTICASONE/SALMETEROL 250/50 (ADVAIR) 14 PUFF/1 INHALER INH SCH ×2 (08:05→20:52)
[2017-03-23] MEDS: RANITIDINE HCL 150 MG TAB PO SCH ×2 (08:05→20:54)
[2017-03-23] MEDS: LOSARTAN POTASSIUM 50 MG TAB PO SCH (08:06)
[2017-03-23] MEDS: THIAMINE HCL 100 MG TAB PO SCH (08:07)
[2017-03-23] MEDS ORDERED: METOPROLOL TARTRATE 25 MG TAB PO SCH (09:00)
[2017-03-23 09:14] LABS: BASO % 0.2 %; BASO ABS # 0.01 K/uL (0-0.2); COMPLETE YES; EOS % 2.6 %; HEMATOCRIT 26.4 % (37-47); IG% 0.5 %; LYMPH ABS # 0.59 K/uL (1.2-3.4); MEAN CELL VOLUME 91.7 fL (80-100); MEAN CORPUSCULAR HEMOGLOBIN 32.3 pg (25-34); MEAN CORPUSCULAR HGB CONC 35.2 g/dl (32-36); MEAN PLATELET VOLUME 11.3 fL (7.4-10.4); MONO % 7.9 %; NEUT % 74.8 %; PLATELET COUNT 130 K/uL (130-400); RED BLOOD COUNT 2.88 M/uL (4.2-5.4)
[2017-03-23] MEDS: CHLORDIAZEPOXIDE 10MG Q8H DOSE PO SCH ×2 (14:35→20:56)
[2017-03-23] MEDS ORDERED: METOPROLOL TARTRATE 25 MG TAB PO ONE (17:15)
[2017-03-23] MEDS: LORAZEPAM 0.5 MG TAB PO PRN (17:50)
[2017-03-24] VITALS (7 sets, daily range): BP systolic 117–180; BP diastolic 61–83; PULSE 63–78; TEMP 36.3–36.8; O2SAT 95–100
[2017-03-24] MEDS: HEPARIN SOD 5000 UNIT/0.5 ML CARP SQ SCH (05:23)
--- NOTE | 2017-03-24 05:27 | Family Medicine Progress Note ---
Progress Note Date of Service Mar 24, 2017. Subjective Pt evaluation today including: conversation w/ patient, physical exam, chart review, lab review Found pt awake, easily conversant, in NAD. Does not appear agitated at present. A&O to person, year, place. Says she'd like to go home with home healthcare to help with her feet. Denies present pain or acute concerns. Overnight was noted to have some bleeding from toenails (s/p removal). Constitutional: No fever, No chills Respiratory: No cough, No shortness of breath Cardiovascular: No chest pain, No edema Abdomen: No pain, No nausea, No vomiting, No diarrhea Medications Current Inpatient Medications Medications (Trade) Dose Ordered Sig/Devin Route Start Time Stop Time Status Last Admin Dose Admin Aspirin (Ecotrin Tab) 81 mg DAILY PO 03/20/17 09:00 04/19/17 08:59 03/23/17 08:05 81 MG Doxazosin Mesylate (Cardura Tab) 4 mg BID PO 03/19/17 21:00 04/18/17 20:59 03/23/17 20:53 4 MG Salmeterol Xinafoate/ Fluticasone (Advair Diskus 250/50 Inh) 1 puff BID INH 03/19/17 21:00 04/18/17 20:59 03/23/17 20:52 1 PUFF Hydralazine HCl (Apresoline Tab) 25 mg TID PO 03/19/17 21:00 04/18/17 20:59 03/23/17 20:53 25 MG Levothyroxine Sodium (Synthroid Tab) 175 mcg DAILYBB PO 03/20/17 06:00 04/19/17 05:59 03/24/17 05:40 175 MCG Lorazepam (Ativan Tab) 0.5 mg BID PRN PO 03/19/17 20:45 04/18/17 20:44 03/23/17 17:50 0.5 MG Losartan Potassium (coZAAR TAB) 100 mg DAILY PO 03/20/17 09:00 04/19/17 08:59 Future Hold 03/23/17 08:06 100 MG Ranitidine HCl (zANTac TAB) 150 mg BID PO 03/19/17 21:00 04/18/17 20:59 03/23/17 20:54 150 MG Heparin Sodium (Porcine) (Heparin Sq 5000 Unit/0.5ml) 5,000 unit Q8H SQ 03/19/17 22:00 04/18/17 21:59 Future Hold 03/23/17 20:56 5,000 UNIT Acetaminophen (Tylenol Tab) 650 mg Q4H PRN PO 03/19/17 20:45 04/18/17 20:44 03/20/17 09:13 650 MG Al Hydrox/Mg Hydrox/Simethicone (Maalox Max Susp) 15 ml Q4H PRN PO 03/19/17 20:45 04/18/17 20:44 Magnesium Hydroxide (Milk Of Magnesia Susp) 30 ml Q12H PRN PO 03/19/17 20:45 04/18/17 20:44 Ondansetron HCl (Zofran Inj) 4 mg Q6H PRN IV 03/19/17 20:45 04/18/17 20:44 Polyethylene (Miralax Powder Packet) 17 gm DAILY PRN PO 03/19/17 20:45 04/18/17 20:44 Thiamine HCl (Vitamin B-1 Tab) 100 mg QAM PO 03/19/17 21:00 04/18/17 20:59 03/23/17 08:07 100 MG Folic Acid (Folvite Tab) 1 mg QAM PO 03/19/17 21:00 04/18/17 20:59 03/23/17 08:06 1 MG Lorazepam (Ativan Inj) PRN Dosing -Active Protocol Q1H PRN IV 03/21/17 12:00 04/20/17 11:59 03/22/17 04:56 2 MG Chlordiazepoxide (Librium Cap) 5 mg Q12H PO 03/24/17 18:00 03/25/17 06:01 Neomycin/ Polymyxin/ Bacitracin (Neosporin Oint) 1 appln BID EXT 03/22/17 21:00 04/05/17 20:59 03/23/17 20:52 1 APPLN Amlodipine Besylate (Norvasc Tab) 10 mg QAM PO 03/24/17 09:00 04/23/17 08:59 Metoprolol Succinate (Toprol Xl Tab) 25 mg QAM PO 03/24/17 09:00 04/23/17 08:59 Objective Vital Signs Date Time Temp Pulse Resp B/P (MAP) Pulse Ox O2 Delivery O2 Flow Rate FiO2 03/24/17 07:10 36.4 71 19 180/78 (112) 98 Room Air 03/24/17 04:42 36.5 67 16 164/83 (110) 100 Room Air 03/24/17 04:00 Room Air 03/24/17 00:03 36.6 70 16 175/66 (102) 97 Room Air 03/23/17 23:59 97 Room Air 03/23/17 20:10 Room Air 03/23/17 18:51 36.4 65 18 154/82 (106) 97 Room Air 03/23/17 16:10 Room Air 03/23/17 14:59 36.3 63 18 174/71 (105) 100 Room Air 03/23/17 12:39 36.5 62 18 142/77 (98) 98 03/23/17 12:00 100 Room Air 03/23/17 08:00 100 Room Air Physical Exam General Appearance: no apparent distress Respiratory/Chest: lungs clear, normal breath sounds, no respiratory distress Cardiovascular: regular rate, rhythm, no murmur Abdomen: normal bowel sounds, non tender, soft, + pertinent finding (2x2 bandage with minimal blood over abdominal heparin injection site) Extremities: + pertinent finding (bilateral feet dressed with gauze, c/d/i. exam yest afternoon noted no active bleeding.) Notes: - Examined bilateral feet during wound care eval in the AM. Bilateral great toes (s/p nail removal) have very slow oozing of blood. No other local d/c or noted erythema. Soles of both feet remain mostly unchanged, with excessive tissue (suspected keratin buildup), though somewhat improved s/p tissue removal by wound care. Laboratory Results 03/24/17 07:12 03/24/17 07:12 Test 03/23/17 08:48 03/24/17 07:12 Immature Granulocyte % (Auto) 0.5 % White Blood Count 4.20 K/uL (4.8-10.8) Red Blood Count 2.88 M/uL (4.2-5.4) 2.74 M/uL (4.2-5.4) Hemoglobin 9.3 g/dL (12.0-16.0) Hematocrit 26.4 % (37-47) Mean Corpuscular Volume 91.7 fL (80-100) 93.1 fL (80-100) Mean Corpuscular Hemoglobin 32.3 pg (25-34) 31.0 pg (25-34) Mean Corpuscular Hemoglobin Concent 35.2 g/dl (32-36) 33.3 g/dl (32-36) Platelet Count 130 K/uL (130-400) Mean Platelet Volume 11.3 fL (7.4-10.4) 9.2 fL (7.4-10.4) Neutrophils (%) (Auto) 74.8 % Lymphocytes (%) (Auto) 14.0 % Monocytes (%) (Auto) 7.9 % Eosinophils (%) (Auto) 2.6 % Basophils (%) (Auto) 0.2 % Neutrophils # (Auto) 3.14 K/uL (1.4-6.5) Lymphocytes # (Auto) 0.59 K/uL (1.2-3.4) Monocytes # (Auto) 0.33 K/uL (0.11-0.59) Eosinophils # (Auto) 0.11 K/uL (0-0.5) Basophils # (Auto) 0.01 K/uL (0-0.2) Immature Granulocyte # (Auto) 0.02 K/uL (0.00-0.02) RDW Standard Deviation 46.6 fL (36.4-46.3) RDW Coefficient of Variation 13.6 % (11.5-14.5) Anion Gap 7.0 mmol/L (3-11) Est Creatinine Clear Calc Drug Dose 18.2 ml/min Estimated GFR () 20.1 Estimated GFR (Non- 17.3 BUN/Creatinine Ratio 15.1 (10-20) Calcium Level 8.7 mg/dl (8.5-10.1) Assessment and Plan 76 y/o F Hx SIADH, hypothyroidism, depression/anxiety, DM, suspected ETOH abuse. Pt presented with a complaint of depression as she had run out of her Lorazepam and may have just wanted a refill. She was placed in the mental health unit for assessment. Labs were drawn and her sodium was noted to be 108. The pt denies additional symptoms although she had an episode of vomiting while in the ER. She is remarkably awake and alert although per her family she may downplay any issues. She denies alcohol consumption, however, her family states that she drinks beer daily - they could not quantify an amount. Noncompliance with her medications is also suspected. Severe hyponatremia: Admit Na 107. Urine sodium 19, Urine Osm 209. Origin likely multifactorial, with PMH SIAD, hypothyroidism, and suspected daily etoh intake (though pt denies the most latter). Initial sodium repletion gradually with goal of ~6 mEq increases in 24 hours. Tx started with 0.9% NS IVF at 90 mL /hr, along with q4h serial BMPs. Placed on fluid restriction as well. Na has been trending upwards, with IVF held briefly to control rate of rise, then stopped morning of 17Sep. - Ongoing lab sodium monitoring Bradycardia: Noted on 15-16Sep to be bradycardic as low as 32 bpm. EKG on 17Sep at 0722 noted to be sinus tiffani 43 with a question of 2nd degree AV block. 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 Likely related to her metabolic issues. - Reduced metoprolol to Toprol-XL 25 mg daily (done as inpt). If new blood pressure agent needed, consider amlodipine (and not further increase in b- blockers). Suspected ETOH abuse / Agitation: EtOH on admit 34 mg/dL. Hard to know pts daily amount of intake due to her denial of drinking frequently at all (says last beer was weeks/months ago). Started CIWA protocol on admit to include Ativan prn for DT coverage/agitation as well as thiamine & folate daily. Had periods of agitation (hitting nurses, disoriented), so was given ativan. - Started on librium on 16Sep. Bilateral foot skin changes and onychomycosis s/p bilateral great toenail removal: Appearance of chronic keratotic skin buildup with concerns for underlying further tissue damage. Also has diseased (likely fungal) toenails lacking trimming in recent weeks/months. [ ] Consult wound care (appreciate recs) - 17Sep Podiatry consult (appreciate recs): Noted onychogryphotic toenails, paronychia. Debridement performed to include removal of great toenails. Per primary team SOAP note, podiatry stated pt would require outpatient surgical suite for further management of wounds. Recd toes will be redressed twice daily, after cleansing with nss ,drying and applying triple antibiotic cream, sterile gauze and paper tape, for 14 days. - Continue antifungal scrubs and wound care/dressing. - oozing from the toenails - discussed with podiatry - pressure dressing Hypokalemia: Admit K 3.2. Given single dose of KCl tab. Serial rechecks now within normal range. Anemia: Likely associated with hx CKD. On this admit, folate level normal, vitamin B12 level elevated, iron level normal, TIBC level low. As inpt, Hb trending downwards from 10.4 -> 9.6 -> 9.1 -> 9.3 -> 8.5. Possibly due to oozing from the feet. Hypothyroidism: Elevated TSH (19.6) is likely due to medical noncompliance. Given a single IV dose of synthroid 100 mcg on 15Sep, as this may have contributed to her hyponatremia. 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 Current trending as inpt thus far has been trending upwards from 1.7 to 2.3. - Plan to hold losartan on 18Sep in case is contributing to elevated Cr. - Will readdress if Cr continues to track upwards. Depression / Anxiety: Reportedly on lorazepam as outpt. Presently on CIWA benzodiazepines. Given one dose celexa today but will d/c since may exacerbate hyponatremia. Consider neurontin. To be addressed as outpatient by PCP Glucose intolerance: Reportedly not on any related medication as outpt. - Trending glucose levels and placed on insulin sliding scale for coverage while inpt. - 17Sep HbA1C 4.9 HTN: On hydralazine, metoprolol, doxazosin (though at 4 mg BID instead of prior reported 1 mg dose BID), losartan. - 18Sep: Changed metoprolol tartrate to succinate 25 mg PO daily. Asthma: On advair. Disposition: Case management likely to eval once pt is less sedated from CIWA protocol. [ ] Consulted PT (eval appreciated) - Consulted OT (eval appreciated): Attempted eval on 16Sep but pt too agitated. 18Sep eval put on hold as well pending footwear. DVT prophy: Heparin q8h. Code status: Full code JDH, PGY1 [employer] Tracking Resident Involvement: Resident Care Provided Care Provided: Adult Hospital Medicine (inpt rounds) Reviewed: Pt Seen/Exam by Me History sitting up in bed denied any complains more alert today Constitutional: denies: fever Respiratory: negative: short of breath Cardiovascular: denies chest pain General Appearance: no apparent distress Respiratory: lungs clear, no respiratory distress Cardiovascular: regular rate, rhythm Extremities: other (both big toes in dressing) Neurologic/Psychiatric: alert Skin Characteristics: warm/dry Assessment/Plan Resident Physician Supervision Note: I was present with Dr. Carlisle in bedside. I verified the wong history and physical, reviewed labs and image studies, discussed the case with the resident and agree with the findings and care plan.
[2017-03-24] MEDS ORDERED: NURSING VERBAL MED ORDER ONE (05:30)
[2017-03-24] MEDS: CHLORDIAZEPOXIDE 10MG Q8H DOSE PO SCH (05:40)
[2017-03-24] MEDS: LEVOTHYROXINE 175 MCG TAB PO SCH (05:40)
[2017-03-24 07:22] LABS: HEMATOCRIT 25.5 % (37-47); MEAN CELL VOLUME 93.1 fL (80-100); MEAN CORPUSCULAR HGB CONC 33.3 g/dl (32-36); MEAN PLATELET VOLUME 9.2 fL (7.4-10.4); PLATELET COUNT 122 K/uL (130-400); RED BLOOD COUNT 2.74 M/uL (4.2-5.4); WHITE BLOOD COUNT 4.29 K/uL (4.8-10.8)
[2017-03-24 07:49] LABS: BUN/CREATININE RATIO 15.1 (10-20); CALCIUM 8.7 mg/dl (8.5-10.1); CREATININE 2.6 mg/dl (0.60-1.20); POTASSIUM 4.3 mmol/L (3.5-5.1)
[2017-03-24] MEDS: FLUTICASONE/SALMETEROL 250/50 (ADVAIR) 14 PUFF/1 INHALER INH SCH ×2 (08:30→20:27)
[2017-03-24] MEDS: THIAMINE HCL 100 MG TAB PO SCH (08:31)
[2017-03-24] MEDS: METOPROLOL SUCC 25MG EXT REL TAB PO SCH (08:31)
[2017-03-24] MEDS: AMLODIPINE BESYLATE 5 MG TAB PO SCH (08:31)
[2017-03-24] MEDS: RANITIDINE HCL 150 MG TAB PO SCH ×2 (08:31→20:27)
[2017-03-24] MEDS: DOXAZosin MESYLATE TAB 4 MG TAB PO SCH ×2 (08:32→20:27)
[2017-03-24] MEDS: SODIUM CHLORIDE 0.9% 1000ML 1,000 ML IV SCH ×2 (12:17→21:50)
[2017-03-24] MEDS ORDERED: CITALOPRAM 20 MG TAB PO STA (12:17)
[2017-03-24 15:46] LABS: BUN/CREATININE RATIO 15.4 (10-20); CALCIUM 8.5 mg/dl (8.5-10.1); CREATININE 2.7 mg/dl (0.60-1.20); POTASSIUM 4.1 mmol/L (3.5-5.1)
[2017-03-24] MEDS: ASPIRIN 81 MG ECTAB PO SCH (15:46)
[2017-03-24 15:49] LABS: ALB/GLOB RATIO 0.8 (0.9-2)
[2017-03-24 16:34] LABS: URINE APPEARANCE TURBID (CLEAR); URINE BILIRUBIN NEG (NEG); URINE COLOR YELLOW; URINE NITRITE POS (NEG); URINE SPECIFIC GRAVITY 1.015 (1.000-1.030); UROBILINOGEN NEG (NEG); ZZUR CULT IF INDIC CLEAN CATCH YES
[2017-03-24 16:36] LABS: MANUAL MICROSCOPIC REQUIRED? NO; REVIEW REQ? YES
[2017-03-24] MEDS: CHLORDIAZEPOXIDE 5MG Q12H DOSE PO SCH (18:22)
[2017-03-24] MEDS: CEFTRIAXONE SOD INJ 1 GM in DEXTROSE 5% ADD-VANTAGE 50ML 50 ML IV SCH (20:59)
[2017-03-24] MEDS: NEOMYCIN/POLYMYX/BACITR OINT 15 GM TUBE EXT SCH (21:00)
[2017-03-25] VITALS (10 sets, daily range): BP systolic 91–167; BP diastolic 56–81; PULSE 62–88; TEMP 36.3–36.9; O2SAT 94–96
--- NOTE | 2017-03-25 05:37 | Family Medicine Progress Note ---
Progress Note Date of Service Mar 25, 2017. Subjective Pt evaluation today including: conversation w/ patient, physical exam, chart review, lab review Found pt lying in bed. She states over and over "I want to go home". When asked where she is now, she says "I don't know" but does know her name, birthday , year. When told she's in the hospital for her medical issues and most recently for her bleeding toes, she repeats she wants to go home. She denies any other focal concerns this morning. Yesterday afternoon on recheck no noted concerns or perseveration on going home. Additional Comments: Unable to obtain ROS this morning as pt isn't really answering directed questions much. Medications Current Inpatient Medications Medications (Trade) Dose Ordered Sig/Devin Route Start Time Stop Time Status Last Admin Dose Admin Aspirin (Ecotrin Tab) 81 mg DAILY PO 03/20/17 09:00 04/19/17 08:59 Future Hold 03/24/17 15:46 81 MG Doxazosin Mesylate (Cardura Tab) 4 mg BID PO 03/19/17 21:00 04/18/17 20:59 03/24/17 20:27 4 MG Salmeterol Xinafoate/ Fluticasone (Advair Diskus 250/50 Inh) 1 puff BID INH 03/19/17 21:00 04/18/17 20:59 03/24/17 20:27 1 PUFF Hydralazine HCl (Apresoline Tab) 25 mg TID PO 03/19/17 21:00 04/18/17 20:59 03/24/17 20:27 25 MG Levothyroxine Sodium (Synthroid Tab) 175 mcg DAILYBB PO 03/20/17 06:00 04/19/17 05:59 03/25/17 07:59 175 MCG Lorazepam (Ativan Tab) 0.5 mg BID PRN PO 03/19/17 20:45 04/18/17 20:44 03/23/17 17:50 0.5 MG Losartan Potassium (coZAAR TAB) 100 mg DAILY PO 03/20/17 09:00 04/19/17 08:59 Future Hold 03/23/17 08:06 100 MG Ranitidine HCl (zANTac TAB) 150 mg BID PO 03/19/17 21:00 04/18/17 20:59 03/24/17 20:27 150 MG Heparin Sodium (Porcine) (Heparin Sq 5000 Unit/0.5ml) 5,000 unit Q8H SQ 03/19/17 22:00 04/18/17 21:59 Future Hold 03/23/17 20:56 5,000 UNIT Acetaminophen (Tylenol Tab) 650 mg Q4H PRN PO 03/19/17 20:45 04/18/17 20:44 03/20/17 09:13 650 MG Al Hydrox/Mg Hydrox/Simethicone (Maalox Max Susp) 15 ml Q4H PRN PO 03/19/17 20:45 04/18/17 20:44 Magnesium Hydroxide (Milk Of Magnesia Susp) 30 ml Q12H PRN PO 03/19/17 20:45 04/18/17 20:44 Ondansetron HCl (Zofran Inj) 4 mg Q6H PRN IV 03/19/17 20:45 04/18/17 20:44 Polyethylene (Miralax Powder Packet) 17 gm DAILY PRN PO 03/19/17 20:45 04/18/17 20:44 Thiamine HCl (Vitamin B-1 Tab) 100 mg QAM PO 03/19/17 21:00 04/18/17 20:59 03/24/17 08:31 100 MG Folic Acid (Folvite Tab) 1 mg QAM PO 03/19/17 21:00 04/18/17 20:59 03/24/17 08:30 1 MG Lorazepam (Ativan Inj) PRN Dosing -Active Protocol Q1H PRN IV 03/21/17 12:00 04/20/17 11:59 03/22/17 04:56 2 MG Neomycin/ Polymyxin/ Bacitracin (Neosporin Oint) 1 appln BID EXT 03/22/17 21:00 04/05/17 20:59 03/23/17 20:52 1 APPLN Amlodipine Besylate (Norvasc Tab) 10 mg QAM PO 03/24/17 09:00 04/23/17 08:59 03/24/17 08:31 10 MG Metoprolol Succinate (Toprol Xl Tab) 25 mg QAM PO 03/24/17 09:00 04/23/17 08:59 03/24/17 08:31 25 MG Sodium Chloride 1,000 ml @ 100 mls/hr Q10H IV 03/24/17 11:30 04/23/17 11:29 03/25/17 07:59 100 MLS/HR Citalopram Hydrobromide (celeXA TAB) 10 mg QAM PO 03/25/17 09:00 04/24/17 08:59 Future Hold Venlafaxine HCl (effeXOR EXTENDED REL CAP) 37.5 mg QAM PO 03/25/17 09:00 04/24/17 08:59 Ceftriaxone Sodium 1 gm/ Dextrose 50 ml @ 100 mls/hr Q24H IV 03/24/17 20:00 04/03/17 19:59 03/24/17 20:59 100 MLS/HR Objective Vital Signs Date Time Temp Pulse Resp B/P (MAP) Pulse Ox O2 Delivery O2 Flow Rate FiO2 03/25/17 08:00 36.9 88 18 145/70 (95) 96 03/25/17 04:00 Room Air 03/25/17 03:10 36.8 78 16 122/68 (86) 96 Room Air 03/25/17 00:01 Room Air 03/24/17 23:08 36.3 78 18 117/61 (79) 96 Room Air 03/24/17 20:00 Room Air 03/24/17 19:26 36.3 77 18 119/71 (87) 98 Room Air 03/24/17 16:00 Room Air 03/24/17 15:43 36.3 63 18 130/63 (85) 98 Room Air 03/24/17 12:03 36.8 72 18 164/79 (107) 95 03/24/17 12:00 Room Air Physical Exam Respiratory/Chest: lungs clear, normal breath sounds, no respiratory distress Cardiovascular: regular rate, rhythm, no edema, no murmur Abdomen: normal bowel sounds, non tender, soft Extremities: + pertinent finding ((B) great toes wrapped, dressings c/d/i. Other toes open to air. Remainder of feet dressed. ) Neurologic/Psychiatric: alert, + pertinent finding (perseverating on going home ) Laboratory Results 03/25/17 07:28 03/25/17 07:28 Test 03/24/17 15:09 03/24/17 16:00 03/25/17 07:28 Absolute Reticulocyte Count 0.03 10^6/uL (0.02-0.10) Percent Reticulocyte Count 1.2 % (0.5-2.0) Total Bilirubin 0.3 mg/dl (0.2-1) Aspartate Amino Transf (AST/SGOT) 20 U/L (15-37) Alanine Aminotransferase (ALT/SGPT) 11 U/L (12-78) Alkaline Phosphatase 97 U/L (45-117) Lactate Dehydrogenase 129 U/L (84-246) Total Protein 5.5 gm/dl (6.4-8.2) Albumin 2.5 gm/dl (3.4-5.0) Globulin 3.0 gm/dl (2.5-4.0) Albumin/Globulin Ratio 0.8 (0.9-2) Urine Color YELLOW Urine Appearance TURBID (CLEAR) Urine pH 5.0 (4.5-7.5) Urine Specific Otis 1.015 (1.000-1.030) Urine Protein 3+ (NEG) Urine Glucose (UA) NEG (NEG) Urine Ketones NEG (NEG) Urine Occult Blood 2+ (NEG) Urine Nitrite POS (NEG) Urine Bilirubin NEG (NEG) Urine Urobilinogen NEG (NEG) Urine Leukocyte Esterase LARGE (NEG) Urine WBC (Auto) >30 /hpf (0-5) Urine RBC (Auto) 0-4 /hpf (0-4) Urine Hyaline Casts (Auto) 0 /lpf (0-5) Urine Epithelial Cells (Auto) 10-20 /lpf (0-5) Urine Bacteria (Auto) 4+ (NEG) Urine Pathogenic Casts /lpf (0) Urine Yeast (Auto) (NONE PRSENT) Urine Osmolality 247 mOms/kg (500-800) Urine Random Creatinine 64.0 mg/dl Urine Random Sodium 43 mEq/L Red Blood Count 2.39 M/uL (4.2-5.4) Mean Corpuscular Volume 94.1 fL (80-100) Mean Corpuscular Hemoglobin 31.8 pg (25-34) Mean Corpuscular Hemoglobin Concent 33.8 g/dl (32-36) RDW Standard Deviation 48.0 fL (36.4-46.3) RDW Coefficient of Variation 13.8 % (11.5-14.5) Mean Platelet Volume 8.8 fL (7.4-10.4) Anion Gap 8.0 mmol/L (3-11) Est Creatinine Clear Calc Drug Dose 19.3 ml/min Estimated GFR () 21.1 Estimated GFR (Non- 18.2 BUN/Creatinine Ratio 17.7 (10-20) Calcium Level 8.6 mg/dl (8.5-10.1) Date/Time Source Procedure Growth Status 03/24/17 16:00 Urine , Clean Catch Urine Culture - Final GREATER THAN THREE TYPES OF ORGANISMS... Complete Assessment and Plan 76 y/o F Hx SIADH, hypothyroidism, depression/anxiety, DM, suspected ETOH abuse. Pt presented with a complaint of depression as she had run out of her Lorazepam and may have just wanted a refill. She was placed in the mental health unit for assessment. Labs were drawn and her sodium was noted to be 108. The pt denies additional symptoms although she had an episode of vomiting while in the ER. She is remarkably awake and alert although per her family she may downplay any issues. She denies alcohol consumption, however, her family states that she drinks beer daily - they could not quantify an amount. Noncompliance with her medications is also suspected. Severe hyponatremia: Admit Na 107. Urine sodium 19, Urine Osm 209. Origin likely multifactorial, with PMH SIAD, hypothyroidism, and suspected daily etoh intake (though pt denies the most latter). Initial sodium repletion gradually with goal of ~6 mEq increases in 24 hours. Tx started with 0.9% NS IVF at 90 mL /hr, along with q4h serial BMPs. Placed on fluid restriction as well. Na has been trending upwards, with IVF held briefly to control rate of rise, then stopped morning of 17Sep. - Ongoing lab sodium monitoring, most recently stabilized >= 130. Bradycardia: Noted on 15-16Sep to be bradycardic as low as 32 bpm. EKG on 17Sep at 0722 noted to be sinus tiffani 43 with a question of 2nd degree AV block. 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 Likely related to her metabolic issues. - Reduced metoprolol to Toprol-XL 25 mg daily (done as inpt). If new blood pressure agent needed, consider amlodipine (and not further increase in b- blockers). Suspected ETOH abuse / Agitation: EtOH on admit 34 mg/dL. Hard to know pts daily amount of intake due to her denial of drinking frequently at all (says last beer was weeks/months ago). Started CIWA protocol on admit to include Ativan prn for DT coverage/agitation as well as thiamine & folate daily. Had periods of agitation (hitting nurses, disoriented), so was given ativan. - 16Sep started on librium. Bilateral foot skin changes and onychomycosis s/p bilateral great toenail removal: Appearance of chronic keratotic skin buildup with concerns for underlying further tissue damage. Also has diseased (likely fungal) toenails lacking trimming in recent weeks/months. - 16Sep Consulted wound care, appreciate ongoing care. 19Sep they recd order for orthotics to help with mobilization, which should help with PT/OT evaluations as well. - 17Sep Podiatry consult (appreciate recs): Noted onychogryphotic toenails, paronychia. Debridement performed to include removal of great toenails. Per primary team SOAP note, podiatry stated pt would require outpatient surgical suite for further management of wounds. Recd toes will be redressed twice daily, after cleansing with normal saline, drying and applying triple antibiotic cream, sterile gauze and paper tape for 14 days. - Continue antifungal scrubs and wound care/dressing. - 19Sep noted to have oozing from the toenails. Discussed with podiatry, recd light pressure dressing and that it should resolve within a couple days. Heparin remains on hold beginning 19Sep. Spoke with wound care, their physician will see pt on 20Sep for further eval. Hypokalemia: Admit K 3.2. Given single dose of KCl tab. Serial rechecks now within normal range. Anemia: Likely associated with hx CKD. On this admit, folate level normal, vitamin B12 level elevated, iron level normal, TIBC level low. As inpt, Hb trending downwards from 10.4 -> 9.6 -> 9.1 -> 9.3 -> 8.5. Initially thought possibly due to oozing from her toenails s/p removal, though this bleeding has stopped. Unclear if other source of bleeding. - 19Sep retic count 0.03. - 19Sep held heparin and aspirin. [ ] 19Sep ordered iron studies for further differentiation. If negative, could consider Procrit. - 19Sep will transfuse one unit PRBCs now and hold an additional unit prn. Hypothyroidism: Elevated TSH (19.6) is likely due to medical noncompliance. Given a single IV dose of Synthroid 100 mcg on 15Sep, as this may have contributed to her hyponatremia. - Currently on home synthroid 175 mcg dose as inpt. 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 Current trending as inpt thus far has been trending upwards from 1.7 to 2.7. - Held losartan on 18Sep in case is contributing to elevated Cr. - 19Sep began some IVF hydration in case theres a prerenal (dehydration) origin. Some Cr improvement following this. - 19Sep FeNa 1.4%, suggesting intrinsic issue. Prior UCx on 14Sep noted three organisms. Resent UA on 19Sep, now positive for nitrites. 19Sep started on ceftriaxone 1 gram IV q 24h. [ ] 19Sep UCx pending. [ ] 19Sep Ordered renal ultrasound for further characterization of elevated Cr. Depression / Anxiety: Reportedly on lorazepam as outpt. Presently on [facility] benzodiazepines. - 19Sep started on venlafaxine ER 75 mg PO q AM - has lower incidence of SIADH Glucose intolerance: Reportedly not on any related medication as outpt. - Trending glucose levels and placed on insulin sliding scale for coverage while inpt. - 17Sep HbA1C 4.9 HTN: On hydralazine 25 mg TID, metoprolol succinate 25 mg daily, doxazosin ( though at 4 mg BID instead of prior reported 1 mg dose BID) - 18Sep held losartan due to rising Cr. Changed metoprolol tartrate to succinate 25 mg PO daily. - 19Sep started norvasc 10 mg PO q AM. Asthma: On advair. Disposition: Case management likely to eval once pt is less sedated from [facility] protocol. - Consulted PT (eval appreciated): Therapy ongoing. - Consulted OT (eval appreciated): 19Sep noted pt would benefit from SNF upon hospital d/c. DVT prophy: Heparin held due to bleeding toes and falling Hb. Code status: Full code JDH, PGY1 Manager Of Radiology Tracking Resident Involvement: Resident Care Provided Care Provided: Adult Hospital Medicine (inpt rounds) Reviewed: Pt Seen/Exam by Me History alert. wants to go home. thinks she can take care of herself. Constitutional: denies: fever Respiratory: negative: short of breath Cardiovascular: denies chest pain Gastrointestinal/Abdominal: negative: abdominal pain General Appearance: no apparent distress Respiratory: lungs clear, no respiratory distress Cardiovascular: regular rate, rhythm Extremities: other (bilateral big toes in dressing) Neurologic/Psychiatric: alert, oriented x 3 Skin Characteristics: warm/dry Assessment/Plan Resident Physician Supervision Note: I was present with Dr. Carlisle in bedside. I verified the wong history and physical, reviewed labs and image studies, discussed the case with the resident and agree with the findings and care plan.
[2017-03-25] MEDS: LEVOTHYROXINE 175 MCG TAB PO SCH ×2 (05:50→07:59)
[2017-03-25] MEDS: CHLORDIAZEPOXIDE 5MG Q12H DOSE PO SCH (05:54)
[2017-03-25 07:45] LABS: HEMATOCRIT 22.5 % (37-47); MEAN CELL VOLUME 94.1 fL (80-100); MEAN CORPUSCULAR HEMOGLOBIN 31.8 pg (25-34); MEAN CORPUSCULAR HGB CONC 33.8 g/dl (32-36); MEAN PLATELET VOLUME 8.8 fL (7.4-10.4); PLATELET COUNT 135 K/uL (130-400); RED BLOOD COUNT 2.39 M/uL (4.2-5.4); WHITE BLOOD COUNT 3.52 K/uL (4.8-10.8)
[2017-03-25] MEDS: SODIUM CHLORIDE 0.9% 1000ML 1,000 ML IV SCH ×2 (07:59→16:32)
[2017-03-25] MEDS: NEOMYCIN/POLYMYX/BACITR OINT 15 GM TUBE EXT SCH ×2 (07:59→23:17)
[2017-03-25 08:20] LABS: BUN/CREATININE RATIO 17.7 (10-20); CALCIUM 8.6 mg/dl (8.5-10.1); CREATININE 2.5 mg/dl (0.60-1.20); POTASSIUM 4.4 mmol/L (3.5-5.1)
[2017-03-25] MEDS: FLUTICASONE/SALMETEROL 250/50 (ADVAIR) 14 PUFF/1 INHALER INH SCH ×2 (08:29→23:15)
[2017-03-25] MEDS: DOXAZosin MESYLATE TAB 4 MG TAB PO SCH ×2 (08:30→23:16)
[2017-03-25] MEDS: AMLODIPINE BESYLATE 5 MG TAB PO SCH (08:31)
[2017-03-25] MEDS: RANITIDINE HCL 150 MG TAB PO SCH ×2 (08:32→23:16)
[2017-03-25] MEDS: THIAMINE HCL 100 MG TAB PO SCH (08:33)
[2017-03-25] MEDS ORDERED: CITALOPRAM 20 MG TAB PO SCH (09:00)
[2017-03-25] MEDS ORDERED: VENLAFAXINE HCL XR 37.5 MG CAPXR PO SCH (09:00)
[2017-03-25] MEDS: METOPROLOL SUCC 25MG EXT REL TAB PO SCH (09:23)
[2017-03-25] MEDS ORDERED: VENLAFAXINE HCL XR 37.5 MG CAPXR PO ONE (10:45)
[2017-03-25] MEDS ORDERED: MoRPHine SULFATE 2 MG/ML CARP IV STA (11:31)
[2017-03-25] MEDS ORDERED: MoRPHine SULFATE 2 MG/ML CARP ONE (11:33)
[2017-03-25 11:34] LABS: FERRITIN 303.1 ng/ml (8.0-388.0)
[2017-03-25] MEDS ORDERED: NURSING VERBAL MED ORDER ONE (12:30)
[2017-03-25] MEDS: CEFTRIAXONE SOD INJ 1 GM in DEXTROSE 5% ADD-VANTAGE 50ML 50 ML IV SCH (21:14)
[2017-03-25] MEDS: COLLAGENASE OINT 30 GM TUBE EXT SCH (23:16)
[2017-03-26] VITALS (7 sets, daily range): BP systolic 112–180; BP diastolic 66–80; PULSE 63–88; TEMP 36.6–36.9; O2SAT 93–99
[2017-03-26] MEDS: LORAZEPAM 0.5 MG TAB PO PRN ×2 (03:30→20:22)
[2017-03-26] MEDS: SODIUM CHLORIDE 0.9% 1000ML 1,000 ML IV SCH (03:30)
--- NOTE | 2017-03-26 05:35 | Family Medicine Progress Note ---
Progress Note Date of Service Mar 26, 2017. Subjective Pt evaluation today including: conversation w/ patient, physical exam, lab review, review of studies Found pt sleeping comfortably, woke easily. Denied any present complaints, pains, or concerns. Constitutional: No fever, No chills Respiratory: No cough, No shortness of breath Cardiovascular: No chest pain, No edema Abdomen: No pain, No nausea, No vomiting, No diarrhea Medications Current Inpatient Medications Medications (Trade) Dose Ordered Sig/Devin Route Start Time Stop Time Status Last Admin Dose Admin Aspirin (Ecotrin Tab) 81 mg DAILY PO 03/20/17 09:00 04/19/17 08:59 Future Hold 03/24/17 15:46 81 MG Doxazosin Mesylate (Cardura Tab) 4 mg BID PO 03/19/17 21:00 04/18/17 20:59 03/25/17 23:16 4 MG Salmeterol Xinafoate/ Fluticasone (Advair Diskus 250/50 Inh) 1 puff BID INH 03/19/17 21:00 04/18/17 20:59 03/25/17 23:15 1 PUFF Hydralazine HCl (Apresoline Tab) 25 mg TID PO 03/19/17 21:00 04/18/17 20:59 03/25/17 23:16 25 MG Levothyroxine Sodium (Synthroid Tab) 175 mcg DAILYBB PO 03/20/17 06:00 04/19/17 05:59 03/26/17 06:06 175 MCG Lorazepam (Ativan Tab) 0.5 mg BID PRN PO 03/19/17 20:45 04/18/17 20:44 03/26/17 03:30 0.5 MG Losartan Potassium (coZAAR TAB) 100 mg DAILY PO 03/20/17 09:00 04/19/17 08:59 Future Hold 03/23/17 08:06 100 MG Ranitidine HCl (zANTac TAB) 150 mg BID PO 03/19/17 21:00 04/18/17 20:59 03/25/17 23:16 150 MG Heparin Sodium (Porcine) (Heparin Sq 5000 Unit/0.5ml) 5,000 unit Q8H SQ 03/19/17 22:00 04/18/17 21:59 Future Hold 03/23/17 20:56 5,000 UNIT Acetaminophen (Tylenol Tab) 650 mg Q4H PRN PO 03/19/17 20:45 04/18/17 20:44 03/20/17 09:13 650 MG Al Hydrox/Mg Hydrox/Simethicone (Maalox Max Susp) 15 ml Q4H PRN PO 03/19/17 20:45 04/18/17 20:44 Magnesium Hydroxide (Milk Of Magnesia Susp) 30 ml Q12H PRN PO 03/19/17 20:45 04/18/17 20:44 Ondansetron HCl (Zofran Inj) 4 mg Q6H PRN IV 03/19/17 20:45 04/18/17 20:44 Polyethylene (Miralax Powder Packet) 17 gm DAILY PRN PO 03/19/17 20:45 04/18/17 20:44 Thiamine HCl (Vitamin B-1 Tab) 100 mg QAM PO 03/19/17 21:00 04/18/17 20:59 03/25/17 08:33 100 MG Folic Acid (Folvite Tab) 1 mg QAM PO 03/19/17 21:00 04/18/17 20:59 03/25/17 08:33 1 MG Lorazepam (Ativan Inj) PRN Dosing -Active Protocol Q1H PRN IV 03/21/17 12:00 04/20/17 11:59 03/22/17 04:56 2 MG Neomycin/ Polymyxin/ Bacitracin (Neosporin Oint) 1 appln BID EXT 03/22/17 21:00 04/05/17 20:59 03/25/17 23:17 1 APPLN Amlodipine Besylate (Norvasc Tab) 10 mg QAM PO 03/24/17 09:00 04/23/17 08:59 03/25/17 08:31 10 MG Metoprolol Succinate (Toprol Xl Tab) 25 mg QAM PO 03/24/17 09:00 04/23/17 08:59 03/25/17 09:23 25 MG Sodium Chloride 1,000 ml @ 100 mls/hr Q10H IV 03/24/17 11:30 04/23/17 11:29 03/26/17 03:30 100 MLS/HR Citalopram Hydrobromide (celeXA TAB) 10 mg QAM PO 03/25/17 09:00 04/24/17 08:59 Future Hold Ceftriaxone Sodium 1 gm/ Dextrose 50 ml @ 100 mls/hr Q24H IV 03/24/17 20:00 04/03/17 19:59 03/25/17 21:14 100 MLS/HR Venlafaxine HCl (effeXOR EXTENDED REL CAP) 75 mg QAM PO 03/26/17 09:00 04/24/17 08:59 Collagenase (Santyl Oint) 1 appln BID EXT 03/25/17 21:00 04/24/17 20:59 03/25/17 23:16 1 APPLN Objective Vital Signs Date Time Temp Pulse Resp B/P (MAP) Pulse Ox O2 Delivery O2 Flow Rate FiO2 03/26/17 04:00 Room Air 03/26/17 04:00 36.9 73 16 177/76 (109) 95 Room Air 03/26/17 00:00 Room Air 03/25/17 23:04 36.7 71 18 167/76 (106) 94 Room Air 03/25/17 20:02 36.3 68 18 156/76 (102) 96 Room Air 03/25/17 20:00 Room Air 03/25/17 16:30 36.8 65 20 145/72 96 03/25/17 16:30 72 145/74 95 03/25/17 16:00 Room Air 03/25/17 15:59 36.4 64 18 138/75 (96) 96 Room Air 03/25/17 14:45 36.8 62 20 152/81 95 03/25/17 13:45 36.5 66 20 139/69 96 03/25/17 13:14 36.8 79 20 133/75 03/25/17 12:59 36.6 66 20 91/56 96 03/25/17 12:00 Room Air 03/25/17 08:00 Room Air 03/25/17 08:00 36.9 88 18 145/70 (95) 96 Physical Exam General Appearance: no apparent distress Respiratory/Chest: lungs clear, normal breath sounds Cardiovascular: regular rate, rhythm, no edema Abdomen: normal bowel sounds, non tender, soft Extremities: no pedal edema Skin: + pertinent finding ((B) feet wrapped in loose gauze, dressings c/d/i) Laboratory Results 03/26/17 07:14 Red Blood Count 2.83, Mean Corpuscular Volume 94.0, Mean Corpuscular Hemoglobin 30.7, Mean Corpuscular Hemoglobin Concent 32.7, Mean Platelet Volume 9.2, Neutrophils (%) (Auto) 61.6, Lymphocytes (%) (Auto) 16.9, Monocytes (%) (Auto) 15.3, Eosinophils (%) (Auto) 4.9, Basophils (%) (Auto) 0.4, Neutrophils # (Auto ) 2.77, Lymphocytes # (Auto) 0.76, Monocytes # (Auto) 0.69, Eosinophils # (Auto ) 0.22, Basophils # (Auto) 0.02 03/26/17 07:14 Test 03/25/17 10:43 03/26/17 07:14 Iron Level 63 mcg/dl (35-150) Total Iron Binding Capacity 189 mcg/dl (250-450) Transferrin 153 mg/dl (200-360) Transferrin % Saturation 29 % (15-50) Ferritin 303.1 ng/ml (8.0-388.0) White Blood Count 4.50 K/uL (4.8-10.8) Red Blood Count 2.83 M/uL (4.2-5.4) Hemoglobin 8.7 g/dL (12.0-16.0) Hematocrit 26.6 % (37-47) Mean Corpuscular Volume 94.0 fL (80-100) Mean Corpuscular Hemoglobin 30.7 pg (25-34) Mean Corpuscular Hemoglobin Concent 32.7 g/dl (32-36) Platelet Count 155 K/uL (130-400) Mean Platelet Volume 9.2 fL (7.4-10.4) Neutrophils (%) (Auto) 61.6 % Lymphocytes (%) (Auto) 16.9 % Monocytes (%) (Auto) 15.3 % Eosinophils (%) (Auto) 4.9 % Basophils (%) (Auto) 0.4 % Neutrophils # (Auto) 2.77 K/uL (1.4-6.5) Lymphocytes # (Auto) 0.76 K/uL (1.2-3.4) Monocytes # (Auto) 0.69 K/uL (0.11-0.59) Eosinophils # (Auto) 0.22 K/uL (0-0.5) Basophils # (Auto) 0.02 K/uL (0-0.2) RDW Standard Deviation 52.9 fL (36.4-46.3) RDW Coefficient of Variation 15.3 % (11.5-14.5) Immature Granulocyte % (Auto) 0.9 % Immature Granulocyte # (Auto) 0.04 K/uL (0.00-0.02) Red Blood Cell Morphology Unremarkable Anion Gap 5.0 mmol/L (3-11) Est Creatinine Clear Calc Drug Dose 20.1 ml/min Estimated GFR () 22.1 Estimated GFR (Non- 19.1 BUN/Creatinine Ratio 16.5 (10-20) Calcium Level 8.9 mg/dl (8.5-10.1) Assessment and Plan 76 y/o F Hx SIADH, hypothyroidism, depression/anxiety, DM, suspected ETOH abuse. Pt presented with a complaint of depression as she had run out of her Lorazepam and may have just wanted a refill. She was placed in the mental health unit for assessment. Labs were drawn and her sodium was noted to be 108. The pt denies additional symptoms although she had an episode of vomiting while in the ER. She is remarkably awake and alert although per her family she may downplay any issues. She denies alcohol consumption, however, her family states that she drinks beer daily - they could not quantify an amount. Noncompliance with her medications is also suspected. Severe hyponatremia: Admit Na 107. Urine sodium 19, Urine Osm 209. Origin likely multifactorial, with PMH SIAD, hypothyroidism, and suspected daily etoh intake (though pt denies the most latter). Initial sodium repletion gradually with goal of ~6 mEq increases in 24 hours. Tx started with 0.9% NS IVF at 90 mL /hr, along with q4h serial BMPs. Placed on fluid restriction as well. Na has been trending upwards, with IVF held briefly to control rate of rise, then stopped morning of 17Sep. NS IVF restarted on 19Sep for rising Cr. - Ongoing lab sodium monitoring, most recently stabilized > 130. Bradycardia: Noted on 15-16Sep to be bradycardic as low as 32 bpm. EKG on 17Sep at 0722 noted to be sinus tiffani 43 with a question of 2nd degree AV block. 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 Likely related to her metabolic issues. - Reduced metoprolol to Toprol-XL 25 mg daily (done as inpt). If new blood pressure agent needed, consider amlodipine (and not further increase in b- blockers). Suspected ETOH abuse / Agitation: EtOH on admit 34 mg/dL. Hard to know pts daily amount of intake due to her denial of drinking frequently at all (says last beer was weeks/months ago). Started CIWA protocol on admit to include Ativan prn for DT coverage/agitation as well as thiamine & folate daily. Had periods of agitation (hitting nurses, disoriented), so was given ativan. - 16Sep started on Librium. Bilateral foot skin changes and onychomycosis s/p bilateral great toenail removal: Appearance of chronic keratotic skin buildup with concerns for underlying further tissue damage. Also has diseased (likely fungal) toenails lacking trimming in recent weeks/months. - 16Sep Consulted wound care, appreciate ongoing care. 19Sep they recd order for orthotics to help with mobilization, which should help with PT/OT evaluations as well. - 17Sep Podiatry consult (appreciate recs): Noted onychogryphotic toenails, paronychia. Debridement performed to include removal of great toenails. Per primary team SOAP note, podiatry stated pt would require outpatient surgical suite for further management of wounds. Recd toes will be redressed twice daily, after cleansing with normal saline, drying and applying triple antibiotic cream, sterile gauze and paper tape for 14 days. - Continue antifungal scrubs and wound care/dressing. - 19Sep noted to have oozing from the toenails. Discussed with podiatry, recd light pressure dressing and that it should resolve within a couple days. Heparin remains on hold beginning 19Sep. Wound care physician saw pt on 20Sep, removed excess tissue, rxed collagenase ointment BID. Planned further debridement on 22Sep. Eventual f/u in the wound care clinic upon d/c from hospital. Hypokalemia: Admit K 3.2. Given single dose of KCl tab. Serial rechecks now within normal range. Anemia: Likely associated with hx CKD. On this admit, folate level normal, vitamin B12 level elevated, iron level normal, TIBC level low. As inpt, Hb trending downwards over days from 10.4 -> 8.5. Initially thought possibly due to oozing from her toenails s/p removal, though this bleeding has stopped. Unclear if other source of bleeding. - 19Sep retic count 0.03. - 19Sep held heparin and aspirin. - 20Sep Iron 63, TIBC 189, Transferrin 153 (sat 29%), ferritin 303. - 20Sep transfused one unit PRBCs, held an additional unit prn. Hb s/p that unit 8.7. Hypothyroidism: Elevated TSH (19.6) is likely due to medical noncompliance. Given a single IV dose of Synthroid 100 mcg on 15Sep, as this may have contributed to her hyponatremia. - Currently on home synthroid 175 mcg dose as inpt. 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 Current trending as inpt thus far has been trending upwards from 1.7 to 2.7. - Held losartan on 18Sep in case is contributing to elevated Cr. - 19Sep began some IVF hydration in case theres a prerenal (dehydration) origin. Some Cr improvement following this. - 19Sep FeNa 1.4%, suggesting intrinsic issue. Prior UCx on 14Sep noted three organisms. Resent UA on 19Sep, now positive for nitrites. 19Sep UCx noted greater than three types of organisms; pt was started on ceftriaxone 1 gram IV q 24h same day. - 19Sep Ordered renal ultrasound which noted a right atrophic/echogenic kidney ( similar to previous), mild left kidney cortical atrophy, and no hydronephrosis. Depression / Anxiety: Reportedly on lorazepam as outpt. Presently on CIWA benzodiazepines. - 19Sep started on venlafaxine ER 75 mg PO q AM - has lower incidence of SIADH. Glucose intolerance: Reportedly not on any related medication as outpt. - Trending glucose levels and placed on insulin sliding scale for coverage while inpt. - 17Sep HbA1C 4.9 HTN: On hydralazine 25 mg TID, metoprolol succinate 25 mg daily, doxazosin ( though at 4 mg BID instead of prior reported 1 mg dose BID) - 18Sep held losartan due to rising Cr. Changed metoprolol tartrate to succinate 25 mg PO daily. - 19Sep started norvasc 10 mg PO q AM. Asthma: On advair. [facility], though is pending further eval by them on 22Sep morning. - Consulted PT (eval appreciated): Therapy ongoing. - Consulted OT (eval appreciated): 19Sep noted pt would benefit from SNF upon hospital d/c. DVT prophy: Heparin held due to bleeding toes. 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 Constitutional: denies: fever Respiratory: negative: short of breath Cardiovascular: denies chest pain General Appearance: no apparent distress Respiratory: lungs clear, no respiratory distress Cardiovascular: regular rate, rhythm Neurologic/Psychiatric: alert, other (oriented to place and person) Skin Characteristics: warm/dry Assessment/Plan Resident Physician Supervision Note: I was present with Dr. Carlisle in bedside. I verified the wong history and physical, reviewed labs and image studies, discussed the case with the resident and agree with the findings and care plan.
[2017-03-26] MEDS: LEVOTHYROXINE 175 MCG TAB PO SCH (06:06)
[2017-03-26 07:35] LABS: BASO % 0.4 %; BASO ABS # 0.02 K/uL (0-0.2); EOS % 4.9 %; HEMATOCRIT 26.6 % (37-47); IG% 0.9 %; LYMPH % 16.9 %; LYMPH ABS # 0.76 K/uL (1.2-3.4); MEAN CORPUSCULAR HEMOGLOBIN 30.7 pg (25-34); MEAN CORPUSCULAR HGB CONC 32.7 g/dl (32-36); MEAN PLATELET VOLUME 9.2 fL (7.4-10.4); MONO % 15.3 %; NEUT % 61.6 %; PLATELET COUNT 155 K/uL (130-400); RED BLOOD COUNT 2.83 M/uL (4.2-5.4)
[2017-03-26 08:10] LABS: BUN/CREATININE RATIO 16.5 (10-20); CALCIUM 8.9 mg/dl (8.5-10.1); CREATININE 2.4 mg/dl (0.60-1.20); POTASSIUM 4.3 mmol/L (3.5-5.1)
--- NOTE | 2017-03-26 08:21 | DIAGNOSTIC IMAGING REPORT ---
ULTRASOUND KIDNEYS AND BLADDER CLINICAL HISTORY: Acute on chronic renal insufficiency. COMPARISON STUDY: Renal ultrasound dated 07/25/2015. TECHNIQUE: Real-time, grayscale, and color flow sonography of the kidneys and bladder is performed. Images are reviewed in the transverse and longitudinal planes. FINDINGS: Kidneys: The right kidney is markedly atrophic and echogenic consistent with medical renal disease. The right kidney measures 5.5 cm in length. The left kidney demonstrates mild cortical atrophy and measures 9.9 cm. Cortical echotexture of the left kidney is normal. There is no hydronephrosis. No shadowing renal calculi are identified. There is no sonographic evidence of contour deforming renal mass lesion. No perinephric fluid is identified. Bladder: The bladder is normal in appearance. A left ureteral jet was seen. IMPRESSION: 1. The right kidney is markedly atrophic and echogenic, asymmetric to the left. This is similar to previous. 2. The left kidney demonstrates mild cortical atrophy. 3. There is no hydronephrosis. 4. The bladder was normal as visualized. Electronically signed by: Luke Metzger M.D. 03/26/2017 8:20 AM Dictated Date/Time: 03/26/2017 8:18 AM
[2017-03-26 08:36] LABS: COMPLETE YES
[2017-03-26] MEDS: METOPROLOL SUCC 25MG EXT REL TAB PO SCH (09:01)
[2017-03-26] MEDS: DOXAZosin MESYLATE TAB 4 MG TAB PO SCH ×2 (09:01→20:22)
[2017-03-26] MEDS: RANITIDINE HCL 150 MG TAB PO SCH ×2 (09:01→20:21)
[2017-03-26] MEDS: THIAMINE HCL 100 MG TAB PO SCH (09:01)
[2017-03-26] MEDS: FLUTICASONE/SALMETEROL 250/50 (ADVAIR) 14 PUFF/1 INHALER INH SCH ×2 (09:02→20:21)
[2017-03-26] MEDS: AMLODIPINE BESYLATE 5 MG TAB PO SCH (09:02)
[2017-03-26] MEDS: VENLAFAXINE HCL XR 75 MG CAPXR PO SCH (09:02)
[2017-03-26] MEDS: COLLAGENASE OINT 30 GM TUBE EXT SCH ×2 (09:13→20:21)
[2017-03-26] MEDS: NEOMYCIN/POLYMYX/BACITR OINT 15 GM TUBE EXT SCH ×2 (09:13→20:21)
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
--- NOTE | 2017-03-26 10:14 | Wound Consultation: Inpatient ---
Wound Consultation Date of Consultation: Mar 25, 2017. Attending Physician: Haley Saldana M.D. Reason for Consultation: Ulcerations bilateral feet History of Present Illness Consultation was requested on the patient due to the presence of a chronic ulcerative formations on both of her feet plantar surfaces. Patient states she' s had these changes on the bottoms of her feet for over a year. Patient denies any known trauma. Patient denies walking barefoot. Patient denies any new shoes. Patient denies any significant other areas of ulcerations except on her toes. Patient was recently seen by podiatry with removal of both of her toenails on each great toe patient denies any fever chills or night sweats. Patient denies any chest pain shortness of breath abdominal discomfort nausea or vomiting. Patient is a poor historian and attributes no other pertinent information regarding this problem. Family History Diabetes mellitus Social History Smoking Status: Never Smoker Smokeless Tobacco Use: No Alcohol Use: heavy Drug Use: none Marital Status: single Housing Status: lives alone Occupation Status: retired Allergies Coded Allergies: Pork (Unverified Allergy, Unknown, unknown, 03/19/17) Pork Allergy (Unverified Allergy, Unknown, unknown, 03/19/17) Tetracycline (Unverified Allergy, Unknown, unknown(not 100% sure if she's allergic to it), 03/19/17) Tramadol (Verified Adverse Reaction, Unknown, dizzy, emesis, 03/19/17) Home Medications Scheduled Aspirin (Aspirin Ec), 81 MG PO DAILY Doxazosin Mesylate (Doxazosin Mesylate), 1 TAB PO BID Fluticasone Prop/Salmeterol (Advair Diskus 250/50 60 Dose), 1 PUFF INH BID Furosemide (Furosemide), 40 MG PO DAILY Hydralazine Hcl (Apresoline), 25 MG PO TID Levothyroxine Sodium (Synthroid), 175 MCG PO DAILY Losartan Potassium (Cozaar), 100 MG PO DAILY Metoprolol Tartrate (Lopressor), 25 MG PO BID Ranitidine (Zantac), 150 MG PO BID Scheduled PRN Lorazepam (Lorazepam), 0.5 MG PO BID PRN for Anxiety Inpatient Medications Current Inpatient Medications Medications (Trade) Dose Ordered Sig/Devin Route Start Time Stop Time Status Last Admin Dose Admin Aspirin (Ecotrin Tab) 81 mg DAILY PO 03/20/17 09:00 04/19/17 08:59 Future Hold 03/24/17 15:46 81 MG Doxazosin Mesylate (Cardura Tab) 4 mg BID PO 03/19/17 21:00 04/18/17 20:59 03/26/17 09:01 4 MG Salmeterol Xinafoate/ Fluticasone (Advair Diskus 250/50 Inh) 1 puff BID INH 03/19/17 21:00 04/18/17 20:59 03/26/17 09:02 1 PUFF Hydralazine HCl (Apresoline Tab) 25 mg TID PO 03/19/17 21:00 04/18/17 20:59 03/26/17 09:02 25 MG Levothyroxine Sodium (Synthroid Tab) 175 mcg DAILYBB PO 03/20/17 06:00 04/19/17 05:59 03/26/17 06:06 175 MCG Lorazepam (Ativan Tab) 0.5 mg BID PRN PO 03/19/17 20:45 04/18/17 20:44 03/26/17 03:30 0.5 MG Losartan Potassium (coZAAR TAB) 100 mg DAILY PO 03/20/17 09:00 04/19/17 08:59 Future Hold 03/23/17 08:06 100 MG Ranitidine HCl (zANTac TAB) 150 mg BID PO 03/19/17 21:00 04/18/17 20:59 03/26/17 09:01 150 MG Heparin Sodium (Porcine) (Heparin Sq 5000 Unit/0.5ml) 5,000 unit Q8H SQ 03/19/17 22:00 04/18/17 21:59 Future Hold 03/23/17 20:56 5,000 UNIT Acetaminophen (Tylenol Tab) 650 mg Q4H PRN PO 03/19/17 20:45 04/18/17 20:44 03/20/17 09:13 650 MG Al Hydrox/Mg Hydrox/Simethicone (Maalox Max Susp) 15 ml Q4H PRN PO 03/19/17 20:45 04/18/17 20:44 Magnesium Hydroxide (Milk Of Magnesia Susp) 30 ml Q12H PRN PO 03/19/17 20:45 04/18/17 20:44 Ondansetron HCl (Zofran Inj) 4 mg Q6H PRN IV 03/19/17 20:45 04/18/17 20:44 Polyethylene (Miralax Powder Packet) 17 gm DAILY PRN PO 03/19/17 20:45 04/18/17 20:44 Thiamine HCl (Vitamin B-1 Tab) 100 mg QAM PO 03/19/17 21:00 04/18/17 20:59 03/26/17 09:01 100 MG Folic Acid (Folvite Tab) 1 mg QAM PO 03/19/17 21:00 04/18/17 20:59 03/26/17 09:01 1 MG Lorazepam (Ativan Inj) PRN Dosing -Active Protocol Q1H PRN IV 03/21/17 12:00 04/20/17 11:59 03/22/17 04:56 2 MG Neomycin/ Polymyxin/ Bacitracin (Neosporin Oint) 1 appln BID EXT 03/22/17 21:00 04/05/17 20:59 03/26/17 09:13 1 APPLN Amlodipine Besylate (Norvasc Tab) 10 mg QAM PO 03/24/17 09:00 04/23/17 08:59 03/26/17 09:02 10 MG Metoprolol Succinate (Toprol Xl Tab) 25 mg QAM PO 03/24/17 09:00 04/23/17 08:59 03/26/17 09:01 25 MG Sodium Chloride 1,000 ml @ 100 mls/hr Q10H IV 03/24/17 11:30 04/23/17 11:29 03/26/17 03:30 100 MLS/HR Citalopram Hydrobromide (celeXA TAB) 10 mg QAM PO 03/25/17 09:00 04/24/17 08:59 Future Hold Ceftriaxone Sodium 1 gm/ Dextrose 50 ml @ 100 mls/hr Q24H IV 03/24/17 20:00 04/03/17 19:59 03/25/17 21:14 100 MLS/HR Venlafaxine HCl (effeXOR EXTENDED REL CAP) 75 mg QAM PO 03/26/17 09:00 04/24/17 08:59 03/26/17 09:02 75 MG Collagenase (Santyl Oint) 1 appln BID EXT 03/25/17 21:00 10/20/17 20:59 03/26/17 09:13 1 APPLN Review of Systems Review of 10 systems revealed no other pertinent information except for that noted in the chief complaint history of present illness. Physical Exam Date Time Temp Pulse Resp B/P (MAP) Pulse Ox O2 Delivery O2 Flow Rate FiO2 03/26/17 09:00 36.6 64 18 157/71 (99) 97 Room Air 03/26/17 04:00 Room Air 03/26/17 04:00 36.9 73 16 177/76 (109) 95 Room Air 03/26/17 00:00 Room Air 03/25/17 23:04 36.7 71 18 167/76 (106) 94 Room Air 03/25/17 20:02 36.3 68 18 156/76 (102) 96 Room Air 03/25/17 20:00 Room Air 03/25/17 16:30 36.8 65 20 145/72 96 03/25/17 16:30 72 145/74 03/25/17 16:00 Room Air 03/25/17 15:59 36.4 64 18 138/75 (96) 96 Room Air 03/25/17 14:45 36.8 62 20 152/81 95 03/25/17 13:45 36.5 66 20 139/69 96 03/25/17 13:14 36.8 79 20 133/75 03/25/17 12:59 36.6 66 20 91/56 96 03/25/17 12:00 Room Air General: The patient is sitting in the exam room in no distress. Alert, cooperative and appropriate to all questions. HEENT: Pupils equal and reactive to light. Sclera clear, EOM intact. Neck: Supple, No JVD noted Chest: CTA in all herring. No deformity Heart: RRR without murmurs, S3, S4, thrills, rubs or heaves Extremities: Significant callus and eschar formation is noted on the plantar surfaces of both feet from the mid foot distal including the heel. The left measures 10.5 x 10 the right measures 11.5 x 9 cm. There is no active drainage from the sites. There is no significant edema noted. No odor noted. Nails on both great toes were removed no active bleeding present. Some minimal tenderness is present to palpation on the plantar surface of the feet. Pulses are present. Neurological: Alert and oriented x3. No focal deficits. Laboratory Results Last 24 Hours Test 03/25/17 10:43 03/26/17 07:14 Iron Level 63 mcg/dl Total Iron Binding Capacity 189 mcg/dl Transferrin 153 mg/dl Transferrin % Saturation 29 % Ferritin 303.1 ng/ml White Blood Count 4.50 K/uL Red Blood Count 2.83 M/uL Hemoglobin 8.7 g/dL Hematocrit 26.6 % Mean Corpuscular Volume 94.0 fL Mean Corpuscular Hemoglobin 30.7 pg Mean Corpuscular Hemoglobin Concent 32.7 g/dl Platelet Count 155 K/uL Mean Platelet Volume 9.2 fL Neutrophils (%) (Auto) 61.6 % Lymphocytes (%) (Auto) 16.9 % Monocytes (%) (Auto) 15.3 % Eosinophils (%) (Auto) 4.9 % Basophils (%) (Auto) 0.4 % Neutrophils # (Auto) 2.77 K/uL Lymphocytes # (Auto) 0.76 K/uL Monocytes # (Auto) 0.69 K/uL Eosinophils # (Auto) 0.22 K/uL Basophils # (Auto) 0.02 K/uL RDW Standard Deviation 52.9 fL RDW Coefficient of Variation 15.3 % Immature Granulocyte % (Auto) 0.9 % Immature Granulocyte # (Auto) 0.04 K/uL Red Blood Cell Morphology Unremarkable Sodium Level 135 mmol/L Potassium Level 4.3 mmol/L Chloride Level 107 mmol/L Carbon Dioxide Level 23 mmol/L Anion Gap 5.0 mmol/L Blood Urea Nitrogen 40 mg/dl Creatinine 2.40 mg/dl Est Creatinine Clear Calc Drug Dose 20.1 ml/min Estimated GFR () 22.1 Estimated GFR (Non- 19.1 BUN/Creatinine Ratio 16.5 Random Glucose 88 mg/dl Calcium Level 8.9 mg/dl Assessment & Plan Assessment: Atypical callus and eschar formation right and left feet plantar surface Plan: At this time both sites on the feet did require debridement. With the patient's permission the eschar is in some callus formations were removed using scissors forceps and blunt dissection. No significant bleeding occurred. No areas of open ulceration were noted under these formations. Approximately 60% of this area was removed. Remaining sites will be managed with Santyl and gauze changed on a daily basis. Patient will continue to be monitored and evaluated during hospitalization with further debridement in the next 48 hours. If the patient is discharged the patient will be reevaluated in the wound care clinic for ongoing care. This represented a non-excisional debridement of approximately 100 cm.
[2017-03-26] MEDS ORDERED: NURSING VERBAL MED ORDER ONE (12:30)
[2017-03-26] MEDS: CEFTRIAXONE SOD INJ 1 GM in DEXTROSE 5% ADD-VANTAGE 50ML 50 ML IV SCH (20:21)
[2017-03-27] VITALS (7 sets, daily range): BP systolic 133–178; BP diastolic 63–76; PULSE 64–74; TEMP 36.3–37; O2SAT 91–100
--- NOTE | 2017-03-27 05:36 | Family Medicine Progress Note ---
Progress Note Date of Service Mar 27, 2017. Subjective Pt evaluation today including: conversation w/ patient, physical exam, chart review, lab review Initially found pt ambulating with minimal assistance, using her walker, smiling. Soon after found pt resting in bed. Says "I wanna get out of here" which seems to be motivating her to want to walk more. Alert, conversational about the organization of her apartment. Denies any acute pain, overnight issues, or acute concerns. Constitutional: No fever, No chills Respiratory: No cough, No shortness of breath Cardiovascular: No chest pain, No edema Abdomen: No pain, No nausea, No vomiting, No diarrhea Medications Current Inpatient Medications Medications (Trade) Dose Ordered Sig/Devin Route Start Time Stop Time Status Last Admin Dose Admin Aspirin (Ecotrin Tab) 81 mg DAILY PO 03/20/17 09:00 04/19/17 08:59 Future Hold 03/24/17 15:46 81 MG Doxazosin Mesylate (Cardura Tab) 4 mg BID PO 03/19/17 21:00 04/18/17 20:59 03/26/17 20:22 4 MG Salmeterol Xinafoate/ Fluticasone (Advair Diskus 250/50 Inh) 1 puff BID INH 03/19/17 21:00 04/18/17 20:59 03/26/17 20:21 1 PUFF Hydralazine HCl (Apresoline Tab) 25 mg TID PO 03/19/17 21:00 04/18/17 20:59 03/26/17 20:21 25 MG Levothyroxine Sodium (Synthroid Tab) 175 mcg DAILYBB PO 03/20/17 06:00 04/19/17 05:59 03/27/17 05:52 175 MCG Lorazepam (Ativan Tab) 0.5 mg BID PRN PO 03/19/17 20:45 04/18/17 20:44 03/26/17 20:22 0.5 MG Losartan Potassium (coZAAR TAB) 100 mg DAILY PO 03/20/17 09:00 04/19/17 08:59 Future Hold 03/23/17 08:06 100 MG Ranitidine HCl (zANTac TAB) 150 mg BID PO 03/19/17 21:00 04/18/17 20:59 03/26/17 20:21 150 MG Heparin Sodium (Porcine) (Heparin Sq 5000 Unit/0.5ml) 5,000 unit Q8H SQ 03/19/17 22:00 04/18/17 21:59 Future Hold 03/23/17 20:56 5,000 UNIT Acetaminophen (Tylenol Tab) 650 mg Q4H PRN PO 03/19/17 20:45 04/18/17 20:44 03/20/17 09:13 650 MG Al Hydrox/Mg Hydrox/Simethicone (Maalox Max Susp) 15 ml Q4H PRN PO 03/19/17 20:45 04/18/17 20:44 Magnesium Hydroxide (Milk Of Magnesia Susp) 30 ml Q12H PRN PO 03/19/17 20:45 04/18/17 20:44 Ondansetron HCl (Zofran Inj) 4 mg Q6H PRN IV 03/19/17 20:45 04/18/17 20:44 Polyethylene (Miralax Powder Packet) 17 gm DAILY PRN PO 03/19/17 20:45 04/18/17 20:44 Thiamine HCl (Vitamin B-1 Tab) 100 mg QAM PO 03/19/17 21:00 04/18/17 20:59 03/26/17 09:01 100 MG Folic Acid (Folvite Tab) 1 mg QAM PO 03/19/17 21:00 04/18/17 20:59 03/26/17 09:01 1 MG Lorazepam (Ativan Inj) PRN Dosing -Active Protocol Q1H PRN IV 03/21/17 12:00 04/20/17 11:59 03/22/17 04:56 2 MG Neomycin/ Polymyxin/ Bacitracin (Neosporin Oint) 1 appln BID EXT 03/22/17 21:00 04/05/17 20:59 03/26/17 20:21 1 APPLN Amlodipine Besylate (Norvasc Tab) 10 mg QAM PO 03/24/17 09:00 04/23/17 08:59 03/26/17 09:02 10 MG Metoprolol Succinate (Toprol Xl Tab) 25 mg QAM PO 03/24/17 09:00 04/23/17 08:59 03/26/17 09:01 25 MG Citalopram Hydrobromide (celeXA TAB) 10 mg QAM PO 03/25/17 09:00 04/24/17 08:59 Future Hold Ceftriaxone Sodium 1 gm/ Dextrose 50 ml @ 100 mls/hr Q24H IV 03/24/17 20:00 04/03/17 19:59 03/26/17 20:21 100 MLS/HR Venlafaxine HCl (effeXOR EXTENDED REL CAP) 75 mg QAM PO 03/26/17 09:00 04/24/17 08:59 03/26/17 09:02 75 MG Collagenase (Santyl Oint) 1 appln BID EXT 03/25/17 21:00 04/24/17 20:59 03/26/17 20:21 1 APPLN Objective Vital Signs Date Time Temp Pulse Resp B/P (MAP) Pulse Ox O2 Delivery O2 Flow Rate FiO2 03/27/17 04:00 Room Air 03/27/17 04:00 36.6 74 156/76 (102) 94 Room Air 03/27/17 00:00 Room Air 03/26/17 23:00 36.8 74 18 180/80 (113) 96 Room Air 03/26/17 20:00 Room Air 03/26/17 18:50 36.9 64 17 158/74 (102) 93 Room Air 03/26/17 16:00 Room Air 03/26/17 15:33 36.6 63 18 147/75 (99) 94 Room Air 03/26/17 12:16 36.8 88 18 129/66 (87) 99 03/26/17 12:10 Room Air 03/26/17 09:00 36.6 64 18 157/71 (99) 97 Room Air 03/26/17 08:30 Room Air Physical Exam General Appearance: no apparent distress Respiratory/Chest: lungs clear, normal breath sounds, no respiratory distress Cardiovascular: regular rate, rhythm, no edema, no murmur Abdomen: normal bowel sounds, non tender, soft Notes: - Left great toe wrapped (c/d/i), remaining toes open to air, no bleeding. (B) heels wrapped, c/d/i. Laboratory Results 03/27/17 07:25 Red Blood Count 2.94, Mean Corpuscular Volume 94.6, Mean Corpuscular Hemoglobin 31.0, Mean Corpuscular Hemoglobin Concent 32.7, Mean Platelet Volume 9.3, Neutrophils (%) (Auto) 59.6, Lymphocytes (%) (Auto) 17.5, Monocytes (%) (Auto) 16.3, Eosinophils (%) (Auto) 4.9, Basophils (%) (Auto) 0.7, Neutrophils # (Auto ) 2.41, Lymphocytes # (Auto) 0.71, Monocytes # (Auto) 0.66, Eosinophils # (Auto ) 0.20, Basophils # (Auto) 0.03 03/27/17 07:25 Test 03/27/17 07:25 White Blood Count 4.05 K/uL (4.8-10.8) Red Blood Count 2.94 M/uL (4.2-5.4) Hemoglobin 9.1 g/dL (12.0-16.0) Hematocrit 27.8 % (37-47) Mean Corpuscular Volume 94.6 fL (80-100) Mean Corpuscular Hemoglobin 31.0 pg (25-34) Mean Corpuscular Hemoglobin Concent 32.7 g/dl (32-36) Platelet Count 173 K/uL (130-400) Mean Platelet Volume 9.3 fL (7.4-10.4) Neutrophils (%) (Auto) 59.6 % Lymphocytes (%) (Auto) 17.5 % Monocytes (%) (Auto) 16.3 % Eosinophils (%) (Auto) 4.9 % Basophils (%) (Auto) 0.7 % Neutrophils # (Auto) 2.41 K/uL (1.4-6.5) Lymphocytes # (Auto) 0.71 K/uL (1.2-3.4) Monocytes # (Auto) 0.66 K/uL (0.11-0.59) Eosinophils # (Auto) 0.20 K/uL (0-0.5) Basophils # (Auto) 0.03 K/uL (0-0.2) RDW Standard Deviation 52.7 fL (36.4-46.3) RDW Coefficient of Variation 15.2 % (11.5-14.5) Immature Granulocyte % (Auto) 1.0 % Immature Granulocyte # (Auto) 0.04 K/uL (0.00-0.02) Anion Gap 9.0 mmol/L (3-11) Est Creatinine Clear Calc Drug Dose 21.0 ml/min Estimated GFR () 23.3 Estimated GFR (Non- 20.1 BUN/Creatinine Ratio 17.0 (10-20) Calcium Level 9.2 mg/dl (8.5-10.1) Assessment and Plan 76 y/o F Hx SIADH, hypothyroidism, depression/anxiety, DM, suspected ETOH abuse. Pt presented with a complaint of depression as she had run out of her Lorazepam and may have just wanted a refill. She was placed in the mental health unit for assessment. Labs were drawn and her sodium was noted to be 108. The pt denies additional symptoms although she had an episode of vomiting while in the ER. She is remarkably awake and alert although per her family she may downplay any issues. She denies alcohol consumption, however, her family states that she drinks beer daily - they could not quantify an amount. Noncompliance with her medications is also suspected. Severe hyponatremia: Admit Na 107. Urine sodium 19, Urine Osm 209. Origin likely multifactorial, with PMH SIAD, hypothyroidism, and suspected daily etoh intake (though pt denies the most latter). Initial sodium repletion gradually with goal of ~6 mEq increases in 24 hours. Tx started with 0.9% NS IVF at 90 mL /hr, along with q4h serial BMPs. Placed on fluid restriction as well. Na has been trending upwards, with IVF held briefly to control rate of rise, then stopped morning of 17Sep. NS IVF restarted on 19Sep for rising Cr. - Ongoing lab sodium monitoring, most recently stabilized > 130. Bradycardia: Noted on 15-16Sep to be bradycardic as low as 32 bpm. EKG on 17Sep at 0722 noted to be sinus tiffani 43 with a question of 2nd degree AV block. 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 Likely related to her metabolic issues. - Reduced metoprolol to Toprol-XL 25 mg daily (done as inpt). If new blood pressure agent needed, consider amlodipine (and not further increase in b- blockers). Suspected ETOH abuse / Agitation: EtOH on admit 34 mg/dL. Hard to know pts daily amount of intake due to her denial of drinking frequently at all (says last beer was weeks/months ago). Started CIWA protocol on admit to include Ativan prn for DT coverage/agitation as well as thiamine & folate daily. Had periods of agitation (hitting nurses, disoriented), so was given ativan. - 16Sep started on Librium. - 21-22Sep: Much improved alertness, conversation. Bilateral foot skin changes and onychomycosis s/p bilateral great toenail removal: Appearance of chronic keratotic skin buildup with concerns for underlying further tissue damage. Also has diseased (likely fungal) toenails lacking trimming in recent weeks/months. - 16Sep Consulted wound care, appreciate ongoing care. 19Sep they recd order for orthotics to help with mobilization, which should help with PT/OT evaluations as well. - 17Sep Podiatry consult (appreciate recs): Noted onychogryphotic toenails, paronychia. Debridement performed to include removal of great toenails. Per primary team SOAP note, podiatry stated pt would require outpatient surgical suite for further management of wounds. Recd toes will be redressed twice daily, after cleansing with normal saline, drying and applying triple antibiotic cream, sterile gauze and paper tape for 14 days. - Continue antifungal scrubs and wound care/dressing. - 19Sep noted to have oozing from the toenails. Discussed with podiatry, recd light pressure dressing and that it should resolve within a couple days. Heparin remains on hold beginning 19Sep. Wound care physician saw pt on 20Sep, removed excess tissue, rxed collagenase ointment BID. Planned further debridement on 22Sep. Eventual f/u in the wound care clinic upon d/c from hospital. - 21-22Sep: Up and walking about with walker, using foot orthotics, without immediate difficulties. Hypokalemia: Admit K 3.2. Given single dose of KCl tab. Serial rechecks now within normal range. Anemia: Likely associated with hx CKD. On this admit, folate level normal, vitamin B12 level elevated, iron level normal, TIBC level low. As inpt, Hb trending downwards over days from 10.4 -> 8.5. Initially thought possibly due to oozing from her toenails s/p removal, though this bleeding has stopped. Unclear if other source of bleeding. - 19Sep retic count 0.03. - 19Sep held heparin and aspirin. - 20Sep Iron 63, TIBC 189, Transferrin 153 (sat 29%), ferritin 303. - 20Sep transfused one unit PRBCs, held an additional unit prn. Hb s/p that unit 8.7, then 9.1. Hypothyroidism: Elevated TSH (19.6) is likely due to medical noncompliance. Given a single IV dose of Synthroid 100 mcg on 15Sep, as this may have contributed to her hyponatremia. - Currently on home synthroid 175 mcg dose as inpt. 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 Trended upwards towards 2.7 (19Sep), since downwards perhaps due to some IVF + addition of abx for possible UTI. Current trending as inpt thus far has been trending upwards from 1.7 to 2.7. - Held losartan on 18Sep in case is contributing to elevated Cr. - 19Sep began some IVF hydration in case theres a prerenal (dehydration) origin. Stopped IVF 21Sep. - 19Sep FeNa 1.4%, suggesting intrinsic issue. Prior UCx on 14Sep noted three organisms. Resent UA on 19Sep, now positive for nitrites. 19Sep UCx noted greater than three types of organisms; pt was started on ceftriaxone 1 gram IV q 24h same day. - 19Sep Ordered renal ultrasound which noted a right atrophic/echogenic kidney ( similar to previous), mild left kidney cortical atrophy, and no hydronephrosis. Depression / Anxiety: Reportedly on lorazepam as outpt. Presently on CIWA benzodiazepines. - 19Sep started on venlafaxine ER 75 mg PO q AM - has lower incidence of SIADH. Glucose intolerance: Reportedly not on any related medication as outpt. - Trending glucose levels and placed on insulin sliding scale for coverage while inpt. - 17Sep HbA1C 4.9 HTN: On hydralazine 25 mg TID, metoprolol succinate 25 mg daily, doxazosin ( though at 4 mg BID instead of prior reported 1 mg dose BID) - 18Sep held losartan due to rising Cr. Changed metoprolol tartrate to succinate 25 mg PO daily. - 19Sep started norvasc 10 mg PO q AM. Asthma: On advair. Disposition: In progress for [facility], though is pending further eval by them on 22Sep morning. - Consulted PT (eval appreciated): Therapy ongoing. - Consulted OT (eval appreciated): 19Sep noted pt would benefit from SNF upon hospital d/c. DVT prophy: Heparin held due to previously bleeding toes. Code status: Full code Will discuss all the above on attending rounds this morning. Fabian, PGY1 Medical Referral Coordinator Tracking Resident Involvement: Resident Care Provided Care Provided: Adult Hospital Medicine (inpt rounds) Reviewed: Pt Seen/Exam by Me History comfortable in bed. denies any concerns says her legs are feeling much better Constitutional: denies: fever Respiratory: negative: short of breath Cardiovascular: denies chest pain Gastrointestinal/Abdominal: negative: abdominal pain General Appearance: no apparent distress Respiratory: lungs clear, no respiratory distress Cardiovascular: regular rate, rhythm Extremities: other (both feet in dressing) Neurologic/Psychiatric: alert, oriented x 3 Skin Characteristics: warm/dry Assessment/Plan Resident Physician Supervision Note: I was present with Dr. Carlisle in bedside. I verified the wong history and physical, reviewed labs and image studies, discussed the case with the resident and agree with the findings and care plan.
[2017-03-27] MEDS: LEVOTHYROXINE 175 MCG TAB PO SCH (05:52)
[2017-03-27 08:11] LABS: BASO % 0.7 %; BASO ABS # 0.03 K/uL (0-0.2); COMPLETE YES; EOS % 4.9 %; HEMATOCRIT 27.8 % (37-47); LYMPH % 17.5 %; LYMPH ABS # 0.71 K/uL (1.2-3.4); MEAN CELL VOLUME 94.6 fL (80-100); MEAN CORPUSCULAR HGB CONC 32.7 g/dl (32-36); MEAN PLATELET VOLUME 9.3 fL (7.4-10.4); MONO % 16.3 %; NEUT % 59.6 %; PLATELET COUNT 173 K/uL (130-400); RED BLOOD COUNT 2.94 M/uL (4.2-5.4); WHITE BLOOD COUNT 4.05 K/uL (4.8-10.8)
[2017-03-27] MEDS: RANITIDINE HCL 150 MG TAB PO SCH ×2 (08:23→22:02)
[2017-03-27] MEDS: AMLODIPINE BESYLATE 5 MG TAB PO SCH (08:23)
[2017-03-27] MEDS: FLUTICASONE/SALMETEROL 250/50 (ADVAIR) 14 PUFF/1 INHALER INH SCH ×2 (08:23→22:02)
[2017-03-27] MEDS: METOPROLOL SUCC 25MG EXT REL TAB PO SCH (08:24)
[2017-03-27] MEDS: DOXAZosin MESYLATE TAB 4 MG TAB PO SCH ×2 (08:24→22:02)
[2017-03-27] MEDS: NEOMYCIN/POLYMYX/BACITR OINT 15 GM TUBE EXT SCH ×2 (08:25→22:03)
[2017-03-27] MEDS: COLLAGENASE OINT 30 GM TUBE EXT SCH ×2 (08:25→22:03)
[2017-03-27] MEDS: VENLAFAXINE HCL XR 75 MG CAPXR PO SCH (08:25)
[2017-03-27] MEDS: THIAMINE HCL 100 MG TAB PO SCH (08:25)
[2017-03-27 08:49] LABS: CALCIUM 9.2 mg/dl (8.5-10.1); CREATININE 2.3 mg/dl (0.60-1.20); POTASSIUM 4.3 mmol/L (3.5-5.1)
[2017-03-27] MEDS: CEFTRIAXONE SOD INJ 1 GM in DEXTROSE 5% ADD-VANTAGE 50ML 50 ML IV SCH (22:02)
[2017-03-28] VITALS (7 sets, daily range): BP systolic 158–179; BP diastolic 74–80; PULSE 66–89; TEMP 36.7–37.1; O2SAT 91–98
--- NOTE | 2017-03-28 05:46 | Family Medicine Progress Note ---
Progress Note Date of Service Mar 28, 2017. Subjective Pt evaluation today including: conversation w/ patient, physical exam, chart review, lab review Found pt sitting in the chair besides her bed. Smiles, says brit. Says was walking about with walker this morning and that her shoes (orthotics) are helping. Denies any acute pains, CP, SOB, abd concerns, or other acute concerns. Continues to ask when she will be going home. Constitutional: No fever, No chills Respiratory: No cough, No shortness of breath Cardiovascular: No chest pain, No edema Abdomen: No pain, No nausea, No vomiting, No diarrhea Medications Current Inpatient Medications Medications (Trade) Dose Ordered Sig/Devin Route Start Time Stop Time Status Last Admin Dose Admin Aspirin (Ecotrin Tab) 81 mg DAILY PO 03/20/17 09:00 04/19/17 08:59 Future Hold 03/24/17 15:46 81 MG Doxazosin Mesylate (Cardura Tab) 4 mg BID PO 03/19/17 21:00 04/18/17 20:59 03/28/17 08:28 4 MG Salmeterol Xinafoate/ Fluticasone (Advair Diskus 250/50 Inh) 1 puff BID INH 03/19/17 21:00 04/18/17 20:59 03/28/17 08:29 1 PUFF Hydralazine HCl (Apresoline Tab) 25 mg TID PO 03/19/17 21:00 04/18/17 20:59 03/28/17 08:25 25 MG Levothyroxine Sodium (Synthroid Tab) 175 mcg DAILYBB PO 03/20/17 06:00 04/19/17 05:59 03/28/17 05:47 175 MCG Lorazepam (Ativan Tab) 0.5 mg BID PRN PO 03/19/17 20:45 04/18/17 20:44 03/26/17 20:22 0.5 MG Losartan Potassium (coZAAR TAB) 100 mg DAILY PO 03/20/17 09:00 04/19/17 08:59 Future Hold 03/23/17 08:06 100 MG Ranitidine HCl (zANTac TAB) 150 mg BID PO 03/19/17 21:00 04/18/17 20:59 03/28/17 08:27 150 MG Heparin Sodium (Porcine) (Heparin Sq 5000 Unit/0.5ml) 5,000 unit Q8H SQ 03/19/17 22:00 04/18/17 21:59 Future Hold 03/23/17 20:56 5,000 UNIT Acetaminophen (Tylenol Tab) 650 mg Q4H PRN PO 03/19/17 20:45 04/18/17 20:44 03/20/17 09:13 650 MG Al Hydrox/Mg Hydrox/Simethicone (Maalox Max Susp) 15 ml Q4H PRN PO 03/19/17 20:45 04/18/17 20:44 Magnesium Hydroxide (Milk Of Magnesia Susp) 30 ml Q12H PRN PO 03/19/17 20:45 04/18/17 20:44 Ondansetron HCl (Zofran Inj) 4 mg Q6H PRN IV 03/19/17 20:45 04/18/17 20:44 Polyethylene (Miralax Powder Packet) 17 gm DAILY PRN PO 03/19/17 20:45 04/18/17 20:44 Thiamine HCl (Vitamin B-1 Tab) 100 mg QAM PO 03/19/17 21:00 04/18/17 20:59 03/28/17 08:26 100 MG Folic Acid (Folvite Tab) 1 mg QAM PO 03/19/17 21:00 04/18/17 20:59 03/28/17 08:29 1 MG Lorazepam (Ativan Inj) PRN Dosing -Active Protocol Q1H PRN IV 03/21/17 12:00 04/20/17 11:59 03/22/17 04:56 2 MG Neomycin/ Polymyxin/ Bacitracin (Neosporin Oint) 1 appln BID EXT 03/22/17 21:00 04/05/17 20:59 03/28/17 08:30 1 APPLN Amlodipine Besylate (Norvasc Tab) 10 mg QAM PO 03/24/17 09:00 04/23/17 08:59 03/28/17 08:26 10 MG Metoprolol Succinate (Toprol Xl Tab) 25 mg QAM PO 03/24/17 09:00 04/23/17 08:59 03/28/17 08:25 25 MG Citalopram Hydrobromide (celeXA TAB) 10 mg QAM PO 03/25/17 09:00 04/24/17 08:59 Future Hold Ceftriaxone Sodium 1 gm/ Dextrose 50 ml @ 100 mls/hr Q24H IV 03/24/17 20:00 04/03/17 19:59 03/27/17 22:02 100 MLS/HR Venlafaxine HCl (effeXOR EXTENDED REL CAP) 75 mg QAM PO 03/26/17 09:00 04/24/17 08:59 03/28/17 08:30 75 MG Collagenase (Santyl Oint) 1 appln BID EXT 03/25/17 21:00 04/24/17 20:59 03/28/17 08:30 1 APPLN Objective Vital Signs Date Time Temp Pulse Resp B/P (MAP) Pulse Ox O2 Delivery O2 Flow Rate FiO2 03/28/17 07:27 37.1 77 20 169/74 (105) 91 Room Air 03/28/17 04:00 Room Air 03/28/17 03:47 37.1 82 22 171/74 (106) 92 Room Air 03/27/17 23:59 Room Air 03/27/17 23:22 36.9 74 19 164/71 (102) 91 Room Air 03/27/17 20:00 Room Air 03/27/17 19:26 37.0 64 18 167/73 (104) 100 Room Air 03/27/17 16:00 Room Air 03/27/17 15:41 36.3 64 20 133/74 (93) 95 Room Air 03/27/17 12:00 Room Air 03/27/17 11:36 36.5 70 18 157/63 (94) 96 Room Air 03/27/17 09:47 137/67 (90) Physical Exam General Appearance: no apparent distress Respiratory/Chest: lungs clear, normal breath sounds Cardiovascular: regular rate, rhythm, no edema, no murmur Abdomen: normal bowel sounds, non tender, soft Skin: + pertinent finding ((B) big toes and feet wrapped in gauze (c/d/i), remaining toes open to air) Laboratory Results 03/28/17 06:11 Red Blood Count 2.97, Mean Corpuscular Volume 92.9, Mean Corpuscular Hemoglobin 31.0, Mean Corpuscular Hemoglobin Concent 33.3, Mean Platelet Volume 9.1, Neutrophils (%) (Auto) 63.6, Lymphocytes (%) (Auto) 13.8, Monocytes (%) (Auto) 15.8, Eosinophils (%) (Auto) 5.2, Basophils (%) (Auto) 0.7, Neutrophils # (Auto ) 2.81, Lymphocytes # (Auto) 0.61, Monocytes # (Auto) 0.70, Eosinophils # (Auto ) 0.23, Basophils # (Auto) 0.03 03/28/17 06:11 Test 03/28/17 06:11 White Blood Count 4.42 K/uL (4.8-10.8) Red Blood Count 2.97 M/uL (4.2-5.4) Hemoglobin 9.2 g/dL (12.0-16.0) Hematocrit 27.6 % (37-47) Mean Corpuscular Volume 92.9 fL (80-100) Mean Corpuscular Hemoglobin 31.0 pg (25-34) Mean Corpuscular Hemoglobin Concent 33.3 g/dl (32-36) Platelet Count 176 K/uL (130-400) Mean Platelet Volume 9.1 fL (7.4-10.4) Neutrophils (%) (Auto) 63.6 % Lymphocytes (%) (Auto) 13.8 % Monocytes (%) (Auto) 15.8 % Eosinophils (%) (Auto) 5.2 % Basophils (%) (Auto) 0.7 % Neutrophils # (Auto) 2.81 K/uL (1.4-6.5) Lymphocytes # (Auto) 0.61 K/uL (1.2-3.4) Monocytes # (Auto) 0.70 K/uL (0.11-0.59) Eosinophils # (Auto) 0.23 K/uL (0-0.5) Basophils # (Auto) 0.03 K/uL (0-0.2) RDW Standard Deviation 50.9 fL (36.4-46.3) RDW Coefficient of Variation 15.0 % (11.5-14.5) Immature Granulocyte % (Auto) 0.9 % Immature Granulocyte # (Auto) 0.04 K/uL (0.00-0.02) Anion Gap 9.0 mmol/L (3-11) Est Creatinine Clear Calc Drug Dose 21.6 ml/min Estimated GFR () 24.6 Estimated GFR (Non- 21.2 BUN/Creatinine Ratio 16.0 (10-20) Calcium Level 9.0 mg/dl (8.5-10.1) Assessment and Plan 76 y/o F Hx SIADH, hypothyroidism, depression/anxiety, DM, suspected ETOH abuse. Pt presented with a complaint of depression as she had run out of her Lorazepam and may have just wanted a refill. She was placed in the mental health unit for assessment. Labs were drawn and her sodium was noted to be 108. The pt denies additional symptoms although she had an episode of vomiting while in the ER. She is remarkably awake and alert although per her family she may downplay any issues. She denies alcohol consumption, however, her family states that she drinks beer daily - they could not quantify an amount. Noncompliance with her medications is also suspected. Severe hyponatremia: Admit Na 107. Urine sodium 19, Urine Osm 209. Origin likely multifactorial, with PMH SIAD, hypothyroidism, and suspected daily etoh intake (though pt denies the most latter). Initial sodium repletion gradually with goal of ~6 mEq increases in 24 hours. Tx started with 0.9% NS IVF at 90 mL /hr, along with q4h serial BMPs. Placed on fluid restriction as well. Na has been trending upwards, with IVF held briefly to control rate of rise, then stopped morning of 17Sep. NS IVF restarted on 19Sep for rising Cr. - Ongoing lab sodium monitoring, most recently stabilized > 130. Bradycardia: Noted on 15-16Sep to be bradycardic as low as 32 bpm. EKG on 17Sep at 0722 noted to be sinus tiffani 43 with a question of 2nd degree AV block. 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 Likely related to her metabolic issues. - Reduced metoprolol to Toprol-XL 25 mg daily (done as inpt). If new blood pressure agent needed, consider amlodipine (and not further increase in b- blockers). Suspected ETOH abuse / Agitation: EtOH on admit 34 mg/dL. Hard to know pts daily amount of intake due to her denial of drinking frequently at all (says last beer was weeks/months ago). Started CIWA protocol on admit to include Ativan prn for DT coverage/agitation as well as thiamine & folate daily. Had periods of agitation (hitting nurses, disoriented), so was given ativan. - 16Sep started on Librium. - 21-23Sep: Much improved alertness, conversation. Bilateral foot skin changes and onychomycosis s/p bilateral great toenail removal: Appearance of chronic keratotic skin buildup with concerns for underlying further tissue damage. Also has diseased (likely fungal) toenails lacking trimming in recent weeks/months. - 16Sep Consulted wound care, appreciate ongoing care. 19Sep they recd order for orthotics to help with mobilization, which should help with PT/OT evaluations as well. - 17Sep Podiatry consult (appreciate recs): Noted onychogryphotic toenails, paronychia. Debridement performed to include removal of great toenails. Per primary team SOAP note, podiatry stated pt would require outpatient surgical suite for further management of wounds. Recd toes will be redressed twice daily, after cleansing with normal saline, drying and applying triple antibiotic cream, sterile gauze and paper tape for 14 days. - Continue antifungal scrubs and wound care/dressing. - 19Sep noted to have oozing from the toenails. Discussed with podiatry, recd light pressure dressing and that it should resolve within a couple days. Heparin remains on hold beginning 19Sep. Wound care physician saw pt on 20Sep, removed excess tissue, rxed collagenase ointment BID. Planned further debridement on 22Sep. Eventual f/u in the wound care clinic upon d/c from hospital. - 21-23Sep: Up and walking about with walker, using foot orthotics, without immediate difficulties. Hypokalemia: Admit K 3.2. Given single dose of KCl tab. Serial rechecks now within normal range. Anemia: Likely associated with hx CKD. On this admit, folate level normal, vitamin B12 level elevated, iron level normal, TIBC level low. As inpt, Hb trending downwards over days from 10.4 -> 8.5. Initially thought possibly due to oozing from her toenails s/p removal, though this bleeding has stopped. Unclear if other source of bleeding. - 19Sep retic count 0.03. - 19Sep held heparin and aspirin. - 20Sep Iron 63, TIBC 189, Transferrin 153 (sat 29%), ferritin 303. - 20Sep transfused one unit PRBCs, held an additional unit prn. Hb s/p that unit 8.7, then 9.2. Hypothyroidism: Elevated TSH (19.6) is likely due to medical noncompliance. Given a single IV dose of Synthroid 100 mcg on 15Sep, as this may have contributed to her hyponatremia. - Currently on home synthroid 175 mcg dose as inpt. 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 Trended upwards towards 2.7 (19Sep), since downwards perhaps due to some IVF + addition of abx for possible UTI. - Held losartan on 18Sep in case is contributing to elevated Cr. - 19Sep began some IVF hydration in case theres a prerenal (dehydration) origin. Stopped IVF 21Sep. - 19Sep FeNa 1.4%, suggesting intrinsic issue. Prior UCx on 14Sep noted three organisms. Resent UA on 19Sep, now positive for nitrites. 19Sep UCx noted greater than three types of organisms; pt was started on ceftriaxone 1 gram IV q 24h same day. - 19Sep Ordered renal ultrasound which noted a right atrophic/echogenic kidney ( similar to previous), mild left kidney cortical atrophy, and no hydronephrosis. Depression / Anxiety: Reportedly on lorazepam as outpt. Presently on CIWA benzodiazepines. - 19Sep started on venlafaxine ER 75 mg PO q AM - has lower incidence of SIADH. Glucose intolerance: Reportedly not on any related medication as outpt. - Trending glucose levels and placed on insulin sliding scale for coverage while inpt. - 17Sep HbA1C 4.9 HTN: On hydralazine 25 mg TID, metoprolol succinate 25 mg daily, doxazosin ( though at 4 mg BID instead of prior reported 1 mg dose BID) - 18Sep held losartan due to rising Cr. Changed metoprolol tartrate to succinate 25 mg PO daily. - 19Sep started norvasc 10 mg PO q AM. Asthma: On advair. Disposition: In progress for [facility], working through authorization and clearance on 22Sep. - Consulted PT (eval appreciated): Therapy ongoing. - Consulted OT (eval appreciated): 19Sep noted pt would benefit from SNF upon hospital d/c. DVT prophy: Heparin held due to previously bleeding toes. Code status: Full code J, PGY1 Chief Revenue Officer Tracking Resident Involvement: Resident Care Provided Care Provided: Adult Hospital Medicine (inpt rounds) Reviewed: Pt Seen/Exam by Me History comfortable. denies any complains Constitutional: denies: fever Respiratory: negative: short of breath Cardiovascular: denies chest pain General Appearance: no apparent distress Respiratory: lungs clear, no respiratory distress Cardiovascular: regular rate, rhythm Extremities: other (both feet in dressing) Neurologic/Psychiatric: alert, oriented x 3 Assessment/Plan Resident Physician Supervision Note: I was present with Dr. Carlisle in bedside. I verified the wong history and physical, reviewed labs and image studies, discussed the case with the resident and agree with the findings and care plan.
[2017-03-28] MEDS: LEVOTHYROXINE 175 MCG TAB PO SCH (05:47)
[2017-03-28 06:58] LABS: BASO % 0.7 %; BASO ABS # 0.03 K/uL (0-0.2); COMPLETE YES; EOS % 5.2 %; HEMATOCRIT 27.6 % (37-47); IG% 0.9 %; LYMPH % 13.8 %; LYMPH ABS # 0.61 K/uL (1.2-3.4); MEAN CELL VOLUME 92.9 fL (80-100); MEAN CORPUSCULAR HGB CONC 33.3 g/dl (32-36); MEAN PLATELET VOLUME 9.1 fL (7.4-10.4); MONO % 15.8 %; NEUT % 63.6 %; PLATELET COUNT 176 K/uL (130-400); RED BLOOD COUNT 2.97 M/uL (4.2-5.4); WHITE BLOOD COUNT 4.42 K/uL (4.8-10.8)
[2017-03-28 07:44] LABS: CREATININE 2.2 mg/dl (0.60-1.20); POTASSIUM 4.1 mmol/L (3.5-5.1)
[2017-03-28] MEDS: METOPROLOL SUCC 25MG EXT REL TAB PO SCH (08:25)
[2017-03-28] MEDS: AMLODIPINE BESYLATE 5 MG TAB PO SCH (08:26)
[2017-03-28] MEDS: THIAMINE HCL 100 MG TAB PO SCH (08:26)
[2017-03-28] MEDS: RANITIDINE HCL 150 MG TAB PO SCH ×2 (08:27→20:17)
[2017-03-28] MEDS: DOXAZosin MESYLATE TAB 4 MG TAB PO SCH ×2 (08:28→20:16)
[2017-03-28] MEDS: FLUTICASONE/SALMETEROL 250/50 (ADVAIR) 14 PUFF/1 INHALER INH SCH ×2 (08:29→20:14)
[2017-03-28] MEDS: NEOMYCIN/POLYMYX/BACITR OINT 15 GM TUBE EXT SCH ×2 (08:30→20:14)
[2017-03-28] MEDS: VENLAFAXINE HCL XR 75 MG CAPXR PO SCH (08:30)
[2017-03-28] MEDS: COLLAGENASE OINT 30 GM TUBE EXT SCH ×2 (08:30→20:14)
[2017-03-28] MEDS: CEFTRIAXONE SOD INJ 1 GM in DEXTROSE 5% ADD-VANTAGE 50ML 50 ML IV SCH (20:13)
[2017-03-28] MEDS: HEPARIN SOD 5000 UNIT/0.5 ML CARP SQ SCH (21:19)
[2017-03-29] VITALS: O2SAT 98
--- NOTE | 2017-03-29 05:47 | Family Medicine Progress Note ---
Progress Note Date of Service Mar 29, 2017. Subjective Pt evaluation today including: conversation w/ patient, physical exam, chart review, lab review Found pt sitting on the side of the bed, appears comfortable. Continues to be more conversational than a couple days ago. Says she wants to go home because she can have her own primary clinician take care of her feet. Denies any acute pains ( CP, SOB, abdominal) or concerns. Constitutional: No fever, No chills Respiratory: No cough, No shortness of breath Cardiovascular: No chest pain, No edema Abdomen: No pain, No nausea, No vomiting Medications Current Inpatient Medications Medications (Trade) Dose Ordered Sig/Devin Route Start Time Stop Time Status Last Admin Dose Admin Aspirin (Ecotrin Tab) 81 mg DAILY PO 03/20/17 09:00 04/19/17 08:59 Future Hold 03/24/17 15:46 81 MG Doxazosin Mesylate (Cardura Tab) 4 mg BID PO 03/19/17 21:00 04/18/17 20:59 03/29/17 08:06 4 MG Salmeterol Xinafoate/ Fluticasone (Advair Diskus 250/50 Inh) 1 puff BID INH 03/19/17 21:00 04/18/17 20:59 03/29/17 08:06 1 PUFF Hydralazine HCl (Apresoline Tab) 25 mg TID PO 03/19/17 21:00 04/18/17 20:59 03/29/17 08:05 25 MG Levothyroxine Sodium (Synthroid Tab) 175 mcg DAILYBB PO 03/20/17 06:00 04/19/17 05:59 03/29/17 05:53 175 MCG Lorazepam (Ativan Tab) 0.5 mg BID PRN PO 03/19/17 20:45 04/18/17 20:44 03/26/17 20:22 0.5 MG Losartan Potassium (coZAAR TAB) 100 mg DAILY PO 03/20/17 09:00 04/19/17 08:59 Future Hold 03/23/17 08:06 100 MG Ranitidine HCl (zANTac TAB) 150 mg BID PO 03/19/17 21:00 04/18/17 20:59 03/29/17 08:05 150 MG Heparin Sodium (Porcine) (Heparin Sq 5000 Unit/0.5ml) 5,000 unit Q8H SQ 03/19/17 22:00 04/18/17 21:59 Future hold 03/28/17 21:19 5,000 UNIT Acetaminophen (Tylenol Tab) 650 mg Q4H PRN PO 03/19/17 20:45 04/18/17 20:44 03/20/17 09:13 650 MG Al Hydrox/Mg Hydrox/Simethicone (Maalox Max Susp) 15 ml Q4H PRN PO 03/19/17 20:45 04/18/17 20:44 Magnesium Hydroxide (Milk Of Magnesia Susp) 30 ml Q12H PRN PO 03/19/17 20:45 04/18/17 20:44 Ondansetron HCl (Zofran Inj) 4 mg Q6H PRN IV 03/19/17 20:45 04/18/17 20:44 Polyethylene (Miralax Powder Packet) 17 gm DAILY PRN PO 03/19/17 20:45 04/18/17 20:44 Thiamine HCl (Vitamin B-1 Tab) 100 mg QAM PO 03/19/17 21:00 04/18/17 20:59 03/29/17 08:05 100 MG Folic Acid (Folvite Tab) 1 mg QAM PO 03/19/17 21:00 04/18/17 20:59 03/29/17 08:05 1 MG Lorazepam (Ativan Inj) PRN Dosing -Active Protocol Q1H PRN IV 03/21/17 12:00 04/20/17 11:59 03/22/17 04:56 2 MG Neomycin/ Polymyxin/ Bacitracin (Neosporin Oint) 1 appln BID EXT 03/22/17 21:00 04/05/17 20:59 03/29/17 08:06 1 APPLN Amlodipine Besylate (Norvasc Tab) 10 mg QAM PO 03/24/17 09:00 04/23/17 08:59 03/29/17 08:05 10 MG Metoprolol Succinate (Toprol Xl Tab) 25 mg QAM PO 03/24/17 09:00 04/23/17 08:59 03/29/17 08:07 25 MG Citalopram Hydrobromide (celeXA TAB) 10 mg QAM PO 03/25/17 09:00 04/24/17 08:59 Future Hold Ceftriaxone Sodium 1 gm/ Dextrose 50 ml @ 100 mls/hr Q24H IV 03/24/17 20:00 04/03/17 19:59 03/28/17 20:13 100 MLS/HR Venlafaxine HCl (effeXOR EXTENDED REL CAP) 75 mg QAM PO 03/26/17 09:00 04/24/17 08:59 03/29/17 08:05 75 MG Collagenase (Santyl Oint) 1 appln BID EXT 03/25/17 21:00 04/24/17 20:59 03/29/17 08:06 1 APPLN Objective Vital Signs Date Time Temp Pulse Resp B/P (MAP) Pulse Ox O2 Delivery O2 Flow Rate FiO2 03/29/17 07:25 36.8 80 16 168/77 (107) 96 Room Air 03/29/17 00:00 98 Room Air 03/28/17 23:06 36.8 72 18 167/75 (105) 98 Room Air 03/28/17 20:45 66 179/80 (113) 03/28/17 16:05 Room Air 03/28/17 14:35 36.7 89 18 162/78 (106) 94 Room Air 03/28/17 14:28 36.8 77 18 91 03/28/17 12:00 Room Air 03/28/17 11:44 36.8 77 18 158/77 (104) 91 Room Air Physical Exam General Appearance: no apparent distress Respiratory/Chest: lungs clear, normal breath sounds, no respiratory distress Cardiovascular: regular rate, rhythm, no edema Abdomen: normal bowel sounds, non tender, soft Extremities: + pertinent finding ((B) big toes wrapped, other toes to air, remainder of feet in gauze, all c/d/i ) Laboratory Results 03/29/17 05:46 Red Blood Count 2.94, Mean Corpuscular Volume 93.9, Mean Corpuscular Hemoglobin 30.3, Mean Corpuscular Hemoglobin Concent 32.2, Mean Platelet Volume 8.4, Neutrophils (%) (Auto) 54.4, Lymphocytes (%) (Auto) 21.5, Monocytes (%) (Auto) 18.0, Eosinophils (%) (Auto) 5.1, Basophils (%) (Auto) 0.5, Neutrophils # (Auto ) 2.02, Lymphocytes # (Auto) 0.80, Monocytes # (Auto) 0.67, Eosinophils # (Auto ) 0.19, Basophils # (Auto) 0.02 Test 03/29/17 05:46 03/29/17 07:25 White Blood Count 3.72 K/uL (4.8-10.8) Red Blood Count 2.94 M/uL (4.2-5.4) Hemoglobin 8.9 g/dL (12.0-16.0) Hematocrit 27.6 % (37-47) Mean Corpuscular Volume 93.9 fL (80-100) Mean Corpuscular Hemoglobin 30.3 pg (25-34) Mean Corpuscular Hemoglobin Concent 32.2 g/dl (32-36) Platelet Count 169 K/uL (130-400) Mean Platelet Volume 8.4 fL (7.4-10.4) Neutrophils (%) (Auto) 54.4 % Lymphocytes (%) (Auto) 21.5 % Monocytes (%) (Auto) 18.0 % Eosinophils (%) (Auto) 5.1 % Basophils (%) (Auto) 0.5 % Neutrophils # (Auto) 2.02 K/uL (1.4-6.5) Lymphocytes # (Auto) 0.80 K/uL (1.2-3.4) Monocytes # (Auto) 0.67 K/uL (0.11-0.59) Eosinophils # (Auto) 0.19 K/uL (0-0.5) Basophils # (Auto) 0.02 K/uL (0-0.2) RDW Standard Deviation 50.5 fL (36.4-46.3) RDW Coefficient of Variation 14.6 % (11.5-14.5) Immature Granulocyte % (Auto) 0.5 % Immature Granulocyte # (Auto) 0.02 K/uL (0.00-0.02) Anisocytosis PRESENT Bedside Glucose 74 mg/dl (70-90) Assessment and Plan 76 y/o F Hx SIADH, hypothyroidism, depression/anxiety, DM, suspected ETOH abuse. Pt presented with a complaint of depression as she had run out of her Lorazepam and may have just wanted a refill. She was placed in the mental health unit for assessment. Labs were drawn and her sodium was noted to be 108. The pt denies additional symptoms although she had an episode of vomiting while in the ER. She is remarkably awake and alert although per her family she may downplay any issues. She denies alcohol consumption, however, her family states that she drinks beer daily - they could not quantify an amount. Noncompliance with her medications is also suspected. Severe hyponatremia: Admit Na 107. Urine sodium 19, Urine Osm 209. Origin likely multifactorial, with PMH SIAD, hypothyroidism, and suspected daily etoh intake (though pt denies the most latter). Initial sodium repletion gradually with goal of ~6 mEq increases in 24 hours. Tx started with 0.9% NS IVF at 90 mL /hr, along with q4h serial BMPs. Placed on fluid restriction as well. Na has been trending upwards, with IVF held briefly to control rate of rise, then stopped morning of 17Sep. NS IVF restarted on 19Sep for rising Cr. - Ongoing lab sodium monitoring, most recently stabilized > 130. Bradycardia: Noted on 15-16Sep to be bradycardic as low as 32 bpm. EKG on 17Sep at 0722 noted to be sinus tiffani 43 with a question of 2nd degree AV block. 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 Likely related to her metabolic issues. - Reduced metoprolol to Toprol-XL 25 mg daily (done as inpt). If new blood pressure agent needed, consider amlodipine (and not further increase in b- blockers). Suspected ETOH abuse / Agitation: EtOH on admit 34 mg/dL. Hard to know pts daily amount of intake due to her denial of drinking frequently at all (says last beer was weeks/months ago). Started CIWA protocol on admit to include Ativan prn for DT coverage/agitation as well as thiamine & folate daily. Had periods of agitation (hitting nurses, disoriented), so was given ativan. - 16Sep started on Librium. - 21-23Sep: Much improved alertness, conversation. Bilateral foot skin changes and onychomycosis s/p bilateral great toenail removal: Appearance of chronic keratotic skin buildup with concerns for underlying further tissue damage. Also has diseased (likely fungal) toenails lacking trimming in recent weeks/months. - 16Sep Consulted wound care, appreciate ongoing care. 19Sep they recd order for orthotics to help with mobilization, which should help with PT/OT evaluations as well. - 17Sep Podiatry consult (appreciate recs): Noted onychogryphotic toenails, paronychia. Debridement performed to include removal of great toenails. Per primary team SOAP note, podiatry stated pt would require outpatient surgical suite for further management of wounds. Recd toes will be redressed twice daily, after cleansing with normal saline, drying and applying triple antibiotic cream, sterile gauze and paper tape for 14 days. - Continue antifungal scrubs and wound care/dressing. - 19Sep noted to have oozing from the toenails. Discussed with podiatry, recd light pressure dressing and that it should resolve within a couple days. Heparin remains on hold beginning 19Sep. Wound care physician saw pt on 20Sep, removed excess tissue, rxed collagenase ointment BID. Planned further debridement on 22Sep. Eventual f/u in the wound care clinic upon d/c from hospital. - 21-23Sep: Up and walking about with walker, using foot orthotics, without immediate difficulties. Hypokalemia: Admit K 3.2. Given single dose of KCl tab. Serial rechecks now within normal range. Anemia: Likely associated with hx CKD. On this admit, folate level normal, vitamin B12 level elevated, iron level normal, TIBC level low. As inpt, Hb trending downwards over days from 10.4 -> 8.5. Initially thought possibly due to oozing from her toenails s/p removal, though this bleeding has stopped. Unclear if other source of bleeding. - 19Sep retic count 0.03. - 19Sep held heparin and aspirin. - 20Sep Iron 63, TIBC 189, Transferrin 153 (sat 29%), ferritin 303. - 20Sep transfused one unit PRBCs, held an additional unit prn. Hb s/p that unit 8.7, then 9.2. Hypothyroidism: Elevated TSH (19.6) is likely due to medical noncompliance. Given a single IV dose of Synthroid 100 mcg on 15Sep, as this may have contributed to her hyponatremia. - Currently on home synthroid 175 mcg dose as inpt. 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 Trended upwards towards 2.7 (19Sep), since downwards perhaps due to some IVF + addition of abx for possible UTI. - Held losartan on 18Sep in case is contributing to elevated Cr. - 19Sep began some IVF hydration in case theres a prerenal (dehydration) origin. Stopped IVF 21Sep. - 19Sep FeNa 1.4%, suggesting intrinsic issue. Prior UCx on 14Sep noted three organisms. Resent UA on 19Sep, now positive for nitrites. 19Sep UCx noted greater than three types of organisms; pt was started on ceftriaxone 1 gram IV q 24h same day. - 19Sep Ordered renal ultrasound which noted a right atrophic/echogenic kidney ( similar to previous), mild left kidney cortical atrophy, and no hydronephrosis. Depression / Anxiety: Reportedly on lorazepam as outpt. Presently on CIWA benzodiazepines. - 19Sep started on venlafaxine ER 75 mg PO q AM - has lower incidence of SIADH. Glucose intolerance: Reportedly not on any related medication as outpt. - Trending glucose levels and placed on insulin sliding scale for coverage while inpt. - 17Sep HbA1C 4.9 HTN: On hydralazine 25 mg TID, metoprolol succinate 25 mg daily, doxazosin ( though at 4 mg BID instead of prior reported 1 mg dose BID) - 18Sep held losartan due to rising Cr. Changed metoprolol tartrate to succinate 25 mg PO daily. - 19Sep started norvasc 10 mg PO q AM. Asthma: On advair. Disposition: In progress. Pt declined at [facility]. Working on [employer] paperwork. - Consulted PT (eval appreciated): Therapy ongoing. - Consulted OT (eval appreciated): 19Sep noted pt would benefit from SNF upon hospital d/c. DVT prophy: Heparin (re-started after three day hold for toe bleeding). Code status: Full code [id number], PGY1 [employer] Tracking Resident Involvement: Resident Care Provided Care Provided: Adult Hospital Medicine (inpt rounds) Reviewed: Pt Seen/Exam by Me History doing well. no concerns. would like to go home. Constitutional: denies: fever Respiratory: negative: short of breath Gastrointestinal/Abdominal: negative: abdominal pain General Appearance: no apparent distress Respiratory: lungs clear, no respiratory distress Cardiovascular: regular rate, rhythm Neurologic/Psychiatric: alert, oriented x 3 Skin Characteristics: warm/dry Assessment/Plan Resident Physician Supervision Note: I independently interviewed and examined the patient and verified the wong history and physical, reviewed labs and image studies, discussed the case with the resident Dr. Carlisle and agree with the findings and care plan.
[2017-03-29] MEDS: HEPARIN SOD 5000 UNIT/0.5 ML CARP SQ SCH ×3 (05:52→20:10)
[2017-03-29] MEDS: LEVOTHYROXINE 175 MCG TAB PO SCH (05:53)
[2017-03-29 06:00] LABS: BASO % 0.5 %; BASO ABS # 0.02 K/uL (0-0.2); EOS % 5.1 %; HEMATOCRIT 27.6 % (37-47); IG% 0.5 %; LYMPH % 21.5 %; MEAN CELL VOLUME 93.9 fL (80-100); MEAN CORPUSCULAR HEMOGLOBIN 30.3 pg (25-34); MEAN CORPUSCULAR HGB CONC 32.2 g/dl (32-36); MEAN PLATELET VOLUME 8.4 fL (7.4-10.4); NEUT % 54.4 %; PLATELET COUNT 169 K/uL (130-400); RED BLOOD COUNT 2.94 M/uL (4.2-5.4); WHITE BLOOD COUNT 3.72 K/uL (4.8-10.8)
[2017-03-29 06:27] LABS: ANISOCYTOSIS PRESENT; COMPLETE YES
[2017-03-29 07:25] VITALS: BP 168/77; PULSE 80; TEMP 36.8; O2SAT 96
[2017-03-29] MEDS: THIAMINE HCL 100 MG TAB PO SCH (08:05)
[2017-03-29] MEDS: VENLAFAXINE HCL XR 75 MG CAPXR PO SCH (08:05)
[2017-03-29] MEDS: AMLODIPINE BESYLATE 5 MG TAB PO SCH (08:05)
[2017-03-29] MEDS: RANITIDINE HCL 150 MG TAB PO SCH ×2 (08:05→19:47)
[2017-03-29] MEDS: COLLAGENASE OINT 30 GM TUBE EXT SCH ×2 (08:06→19:47)
[2017-03-29] MEDS: NEOMYCIN/POLYMYX/BACITR OINT 15 GM TUBE EXT SCH ×2 (08:06→19:47)
[2017-03-29] MEDS: FLUTICASONE/SALMETEROL 250/50 (ADVAIR) 14 PUFF/1 INHALER INH SCH ×2 (08:06→19:46)
[2017-03-29] MEDS: DOXAZosin MESYLATE TAB 4 MG TAB PO SCH ×2 (08:06→19:48)
[2017-03-29] MEDS: METOPROLOL SUCC 25MG EXT REL TAB PO SCH (08:07)
[2017-03-29 15:38] VITALS: BP 165/77; PULSE 61; TEMP 36.5; O2SAT 96
[2017-03-29] MEDS: CEFTRIAXONE SOD INJ 1 GM in DEXTROSE 5% ADD-VANTAGE 50ML 50 ML IV SCH (19:45)
[2017-03-29 22:48] VITALS: BP 168/78; PULSE 66; TEMP 36.8; O2SAT 91
[2017-03-30] MEDS: LEVOTHYROXINE 175 MCG TAB PO SCH (05:18)
[2017-03-30] MEDS: HEPARIN SOD 5000 UNIT/0.5 ML CARP SQ SCH ×3 (05:20→20:04)
[2017-03-30 06:26] LABS: BASO % 0.8 %; BASO ABS # 0.03 K/uL (0-0.2); COMPLETE YES; EOS % 7.1 %; HEMATOCRIT 27.2 % (37-47); IG% 0.8 %; LYMPH % 27.7 %; LYMPH ABS # 0.98 K/uL (1.2-3.4); MEAN CELL VOLUME 93.2 fL (80-100); MEAN CORPUSCULAR HEMOGLOBIN 31.2 pg (25-34); MEAN CORPUSCULAR HGB CONC 33.5 g/dl (32-36); MEAN PLATELET VOLUME 8.8 fL (7.4-10.4); MONO % 12.7 %; NEUT % 50.9 %; PLATELET COUNT 180 K/uL (130-400); RED BLOOD COUNT 2.92 M/uL (4.2-5.4); WHITE BLOOD COUNT 3.54 K/uL (4.8-10.8)
[2017-03-30 06:51] LABS: BUN/CREATININE RATIO 14.7 (10-20); CALCIUM 8.8 mg/dl (8.5-10.1); CREATININE 2.4 mg/dl (0.60-1.20)
[2017-03-30 07:42] VITALS: BP 174/77; PULSE 70; TEMP 36.6; O2SAT 93
[2017-03-30] MEDS: DOXAZosin MESYLATE TAB 4 MG TAB PO SCH ×2 (08:22→19:56)
[2017-03-30] MEDS: AMLODIPINE BESYLATE 5 MG TAB PO SCH (08:22)
[2017-03-30] MEDS: THIAMINE HCL 100 MG TAB PO SCH (08:22)
[2017-03-30] MEDS: VENLAFAXINE HCL XR 75 MG CAPXR PO SCH (08:22)
[2017-03-30] MEDS: RANITIDINE HCL 150 MG TAB PO SCH ×2 (08:22→19:56)
[2017-03-30] MEDS: METOPROLOL SUCC 25MG EXT REL TAB PO SCH (08:22)
[2017-03-30] MEDS: FLUTICASONE/SALMETEROL 250/50 (ADVAIR) 14 PUFF/1 INHALER INH SCH ×2 (11:15→19:53)
[2017-03-30] MEDS: NEOMYCIN/POLYMYX/BACITR OINT 15 GM TUBE EXT SCH ×2 (11:16→19:54)
[2017-03-30] MEDS: COLLAGENASE OINT 30 GM TUBE EXT SCH ×2 (11:16→19:54)
[2017-03-30 15:11] VITALS: BP 110/70; PULSE 67; TEMP 36.3; O2SAT 98
[2017-03-30] MEDS: CEFTRIAXONE SOD INJ 1 GM in DEXTROSE 5% ADD-VANTAGE 50ML 50 ML IV SCH (19:53)
[2017-03-30 20:00] VITALS: O2SAT 98
--- NOTE | 2017-03-30 21:10 | Family Medicine Progress Note ---
Progress Note Date of Service Mar 30, 2017. Subjective Pt evaluation today including: conversation w/ patient, physical exam, chart review Pain: No pain reported Voiding: no voiding problems Patient resting comfortably in bed after having just gone for a walk; she reports no pain, no complaints, she is eager to get out of hospital to see her grandchildren. Constitutional: No fever, No chills, No sweats Eyes: No worsening of vision ENT: No sore throat, No dental problems Respiratory: No cough, No sputum, No wheezing, No shortness of breath Cardiovascular: No chest pain Abdomen: No pain, No nausea Psychiatric: No depression symptoms Medications Current Inpatient Medications Medications (Trade) Dose Ordered Sig/Devin Route Start Time Stop Time Status Last Admin Dose Admin Aspirin (Ecotrin Tab) 81 mg DAILY PO 03/20/17 09:00 04/19/17 08:59 Future Hold 03/24/17 15:46 81 MG Doxazosin Mesylate (Cardura Tab) 4 mg BID PO 03/19/17 21:00 04/18/17 20:59 03/30/17 19:56 4 MG Salmeterol Xinafoate/ Fluticasone (Advair Diskus 250/50 Inh) 1 puff BID INH 03/19/17 21:00 04/18/17 20:59 03/30/17 19:53 1 PUFF Hydralazine HCl (Apresoline Tab) 25 mg TID PO 03/19/17 21:00 04/18/17 20:59 03/30/17 20:08 25 MG Levothyroxine Sodium (Synthroid Tab) 175 mcg DAILYBB PO 03/20/17 06:00 04/19/17 05:59 03/30/17 05:18 175 MCG Lorazepam (Ativan Tab) 0.5 mg BID PRN PO 03/19/17 20:45 04/18/17 20:44 03/26/17 20:22 0.5 MG Losartan Potassium (coZAAR TAB) 100 mg DAILY PO 03/20/17 09:00 04/19/17 08:59 Future Hold 03/23/17 08:06 100 MG Ranitidine HCl (zANTac TAB) 150 mg BID PO 03/19/17 21:00 04/18/17 20:59 03/30/17 19:56 150 MG Heparin Sodium (Porcine) (Heparin Sq 5000 Unit/0.5ml) 5,000 unit Q8H SQ 03/19/17 22:00 04/18/17 21:59 Future hold 03/30/17 20:04 5,000 UNIT Acetaminophen (Tylenol Tab) 650 mg Q4H PRN PO 03/19/17 20:45 04/18/17 20:44 03/20/17 09:13 650 MG Al Hydrox/Mg Hydrox/Simethicone (Maalox Max Susp) 15 ml Q4H PRN PO 03/19/17 20:45 04/18/17 20:44 Magnesium Hydroxide (Milk Of Magnesia Susp) 30 ml Q12H PRN PO 03/19/17 20:45 04/18/17 20:44 Ondansetron HCl (Zofran Inj) 4 mg Q6H PRN IV 03/19/17 20:45 04/18/17 20:44 Polyethylene (Miralax Powder Packet) 17 gm DAILY PRN PO 03/19/17 20:45 04/18/17 20:44 Thiamine HCl (Vitamin B-1 Tab) 100 mg QAM PO 03/19/17 21:00 04/18/17 20:59 03/30/17 08:22 100 MG Folic Acid (Folvite Tab) 1 mg QAM PO 03/19/17 21:00 04/18/17 20:59 03/30/17 08:22 1 MG Lorazepam (Ativan Inj) PRN Dosing -Active Protocol Q1H PRN IV 03/21/17 12:00 04/20/17 11:59 03/22/17 04:56 2 MG Neomycin/ Polymyxin/ Bacitracin (Neosporin Oint) 1 appln BID EXT 03/22/17 21:00 04/05/17 20:59 03/30/17 19:54 1 APPLN Amlodipine Besylate (Norvasc Tab) 10 mg QAM PO 03/24/17 09:00 04/23/17 08:59 03/30/17 08:22 10 MG Metoprolol Succinate (Toprol Xl Tab) 25 mg QAM PO 03/24/17 09:00 04/23/17 08:59 03/30/17 08:22 25 MG Citalopram Hydrobromide (celeXA TAB) 10 mg QAM PO 03/25/17 09:00 10/20/17 08:59 Future Hold Ceftriaxone Sodium 1 gm/ Dextrose 50 ml @ 100 mls/hr Q24H IV 03/24/17 20:00 04/03/17 19:59 03/30/17 19:53 100 MLS/HR Venlafaxine HCl (effeXOR EXTENDED REL CAP) 75 mg QAM PO 03/26/17 09:00 04/24/17 08:59 03/30/17 08:22 75 MG Collagenase (Santyl Oint) 1 appln BID EXT 03/25/17 21:00 04/24/17 20:59 03/30/17 19:54 1 APPLN Objective Vital Signs Date Time Temp Pulse Resp B/P (MAP) Pulse Ox O2 Delivery O2 Flow Rate FiO2 03/30/17 16:00 Room Air 03/30/17 15:11 36.3 67 16 110/70 (83) 98 Room Air 03/30/17 10:55 Room Air 03/30/17 07:42 36.6 70 18 174/77 (109) 93 Room Air 03/30/17 00:00 Room Air 03/29/17 22:48 36.8 66 18 168/78 (108) 91 Room Air Physical Exam General Appearance: WD/WN, no apparent distress Eyes: normal inspection, PERRL, EOMI ENT: hearing grossly normal, pharynx normal Neck: supple, no JVD Respiratory/Chest: chest non-tender, lungs clear, normal breath sounds, no respiratory distress, no accessory muscle use Cardiovascular: regular rate, rhythm, no edema, no gallop, no JVD, no murmur Abdomen: normal bowel sounds, non tender, soft Extremities: + pertinent finding (Both feet in boots; big toes wrapped in guaze ) Neurologic/Psychiatric: alert, normal mood/affect, oriented x 3 Laboratory Results 03/30/17 05:48 Red Blood Count 2.92, Mean Corpuscular Volume 93.2, Mean Corpuscular Hemoglobin 31.2, Mean Corpuscular Hemoglobin Concent 33.5, Mean Platelet Volume 8.8, Neutrophils (%) (Auto) 50.9, Lymphocytes (%) (Auto) 27.7, Monocytes (%) (Auto) 12.7, Eosinophils (%) (Auto) 7.1, Basophils (%) (Auto) 0.8, Neutrophils # (Auto ) 1.80, Lymphocytes # (Auto) 0.98, Monocytes # (Auto) 0.45, Eosinophils # (Auto ) 0.25, Basophils # (Auto) 0.03 03/30/17 05:48 Test 03/30/17 05:48 03/30/17 20:20 White Blood Count 3.54 K/uL (4.8-10.8) Red Blood Count 2.92 M/uL (4.2-5.4) Hemoglobin 9.1 g/dL (12.0-16.0) Hematocrit 27.2 % (37-47) Mean Corpuscular Volume 93.2 fL (80-100) Mean Corpuscular Hemoglobin 31.2 pg (25-34) Mean Corpuscular Hemoglobin Concent 33.5 g/dl (32-36) Platelet Count 180 K/uL (130-400) Mean Platelet Volume 8.8 fL (7.4-10.4) Neutrophils (%) (Auto) 50.9 % Lymphocytes (%) (Auto) 27.7 % Monocytes (%) (Auto) 12.7 % Eosinophils (%) (Auto) 7.1 % Basophils (%) (Auto) 0.8 % Neutrophils # (Auto) 1.80 K/uL (1.4-6.5) Lymphocytes # (Auto) 0.98 K/uL (1.2-3.4) Monocytes # (Auto) 0.45 K/uL (0.11-0.59) Eosinophils # (Auto) 0.25 K/uL (0-0.5) Basophils # (Auto) 0.03 K/uL (0-0.2) RDW Standard Deviation 49.8 fL (36.4-46.3) RDW Coefficient of Variation 14.5 % (11.5-14.5) Immature Granulocyte % (Auto) 0.8 % Immature Granulocyte # (Auto) 0.03 K/uL (0.00-0.02) Anion Gap 11.0 mmol/L (3-11) Est Creatinine Clear Calc Drug Dose 19.8 ml/min Estimated GFR () 22.1 Estimated GFR (Non- 19.1 BUN/Creatinine Ratio 14.7 (10-20) Calcium Level 8.8 mg/dl (8.5-10.1) Bedside Glucose 110 mg/dl (70-90) Assessment and Plan 76 y/o F Hx SIADH, hypothyroidism, depression/anxiety, DM, suspected ETOH abuse. Pt presented with a complaint of depression as she had run out of her Lorazepam and may have just wanted a refill. She was placed in the mental health unit for assessment. Labs were drawn and her sodium was noted to be 108. The pt denies additional symptoms although she had an episode of vomiting while in the ER. She is remarkably awake and alert although per her family she may downplay any issues. She denies alcohol consumption, however, her family states that she drinks beer daily - they could not quantify an amount. Noncompliance with her medications is also suspected. Severe hyponatremia: Admit Na 107. Urine sodium 19, Urine Osm 209. Origin likely multifactorial, with PMH SIAD, hypothyroidism, and suspected daily etoh intake (though pt denies the most latter). Initial sodium repletion gradually with goal of ~6 mEq increases in 24 hours. Tx started with 0.9% NS IVF at 90 mL /hr, along with q4h serial BMPs. Placed on fluid restriction as well. Na has been trending upwards, with IVF held briefly to control rate of rise, then stopped morning of 17Sep. NS IVF restarted on 19Sep for rising Cr. - Ongoing lab sodium monitoring, most recently stabilized at 135.. Bradycardia: Noted on 15-16Sep to be bradycardic as low as 32 bpm. EKG on 17Sep at 0722 noted to be sinus tiffani 43 with a question of 2nd degree AV block. 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 Likely related to her metabolic issues. - Reduced metoprolol to Toprol-XL 25 mg daily (done as inpt). If new blood pressure agent needed, consider amlodipine (and not further increase in b- blockers). Suspected ETOH abuse / Agitation: EtOH on admit 34 mg/dL. Hard to know pts daily amount of intake due to her denial of drinking frequently at all (says last beer was weeks/months ago). Started CIWA protocol on admit to include Ativan prn for DT coverage/agitation as well as thiamine & folate daily. Had periods of agitation (hitting nurses, disoriented), so was given ativan. - 16Sep started on Librium. - 21-23Sep: Much improved alertness, conversation. Bilateral foot skin changes and onychomycosis s/p bilateral great toenail removal: Appearance of chronic keratotic skin buildup with concerns for underlying further tissue damage. Also has diseased (likely fungal) toenails lacking trimming in recent weeks/months. - 16Sep Consulted wound care, appreciate ongoing care. 19Sep they recd order for orthotics to help with mobilization, which should help with PT/OT evaluations as well. - 17Sep Podiatry consult (appreciate recs): Noted onychogryphotic toenails, paronychia. Debridement performed to include removal of great toenails. Per primary team SOAP note, podiatry stated pt would require outpatient surgical suite for further management of wounds. Recd toes will be redressed twice daily, after cleansing with normal saline, drying and applying triple antibiotic cream, sterile gauze and paper tape for 14 days. - Continue antifungal scrubs and wound care/dressing. - 19Sep noted to have oozing from the toenails. Discussed with podiatry, recd light pressure dressing and that it should resolve within a couple days. Heparin remains on hold beginning 19Sep. Wound care physician saw pt on 20Sep, removed excess tissue, rxed collagenase ointment BID. Planned further debridement on 22Sep. Eventual f/u in the wound care clinic upon d/c from hospital. - 21-23Sep: Up and walking about with walker, using foot orthotics, without immediate difficulties. Hypokalemia: Admit K 3.2. Given single dose of KCl tab. Serial rechecks now within normal range. Anemia: Likely associated with hx CKD. On this admit, folate level normal, vitamin B12 level elevated, iron level normal, TIBC level low. As inpt, Hb trending downwards over days from 10.4 -> 8.5. Initially thought possibly due to oozing from her toenails s/p removal, though this bleeding has stopped. Unclear if other source of bleeding. - 19Sep retic count 0.03. - 19Sep held heparin and aspirin. - 20Sep Iron 63, TIBC 189, Transferrin 153 (sat 29%), ferritin 303. - 20Sep transfused one unit PRBCs, held an additional unit prn. Hb s/p that unit 8.7, then 9.2. Hypothyroidism: Elevated TSH (19.6) is likely due to medical noncompliance. Given a single IV dose of Synthroid 100 mcg on 15Sep, as this may have contributed to her hyponatremia. - Currently on home synthroid 175 mcg dose as inpt. - Will repeat TSH, Free T3, Free T4 CKD 3-4: From hospital records, Cr in 2015 around 2.0 and in 2016 around 2.4. Trended upwards towards 2.7 (19Sep), since downwards perhaps due to some IVF + addition of abx for possible UTI. - Held losartan on 18Sep in case is contributing to elevated Cr. - 19Sep began some IVF hydration in case theres a prerenal (dehydration) origin. Stopped IVF 21Sep. - 19Sep FeNa 1.4%, suggesting intrinsic issue. Prior UCx on 14Sep noted three organisms. Resent UA on 19Sep, now positive for nitrites. 19Sep UCx noted greater than three types of organisms; pt was started on ceftriaxone 1 gram IV q 24h same day. - 19Sep Ordered renal ultrasound which noted a right atrophic/echogenic kidney ( similar to previous), mild left kidney cortical atrophy, and no hydronephrosis. Depression / Anxiety: Reportedly on lorazepam as outpt. Presently on CIWA benzodiazepines. - 19Sep started on venlafaxine ER 75 mg PO q AM - has lower incidence of SIADH. Glucose intolerance: Reportedly not on any related medication as outpt. - Trending glucose levels and placed on insulin sliding scale for coverage while inpt. - 17Sep HbA1C 4.9 HTN: On hydralazine 25 mg TID, metoprolol succinate 25 mg daily, doxazosin ( though at 4 mg BID instead of prior reported 1 mg dose BID) - 18Sep held losartan due to rising Cr. Changed metoprolol tartrate to succinate 25 mg PO daily. - 19Sep started norvasc 10 mg PO q AM. Asthma: On advair. Disposition: In progress. Pt declined at [facility]. Working on [facility] paperwork; psych consult obtained for mental health brea prior to acceptance at [facility]. - Consulted PT (eval appreciated): Therapy ongoing. - Consulted OT (eval appreciated): 19Sep noted pt would benefit from SNF upon hospital d/c. DVT prophy: Heparin (re-started after three day hold for toe bleeding). Code status: Full code Resident Tracking Resident Involvement: Resident Care Provided Care Provided: Adult Hospital Medicine
[2017-03-31] VITALS: BP 159/75; PULSE 70; TEMP 36.6; O2SAT 95
[2017-03-31 06:04] LABS: BASO % 0.6 %; BASO ABS # 0.02 K/uL (0-0.2); COMPLETE YES; EOS % 7.5 %; HEMATOCRIT 28.6 % (37-47); IG% 0.9 %; LYMPH % 21.5 %; LYMPH ABS # 0.69 K/uL (1.2-3.4); MEAN CELL VOLUME 93.5 fL (80-100); MEAN CORPUSCULAR HEMOGLOBIN 30.7 pg (25-34); MEAN CORPUSCULAR HGB CONC 32.9 g/dl (32-36); MONO % 15.6 %; NEUT % 53.9 %; PLATELET COUNT 188 K/uL (130-400); RED BLOOD COUNT 3.06 M/uL (4.2-5.4); WHITE BLOOD COUNT 3.21 K/uL (4.8-10.8)
[2017-03-31] MEDS: LEVOTHYROXINE 175 MCG TAB PO SCH (06:17)
[2017-03-31] MEDS: COLLAGENASE OINT 30 GM TUBE EXT SCH ×2 (06:22→20:24)
[2017-03-31] MEDS: HEPARIN SOD 5000 UNIT/0.5 ML CARP SQ SCH ×3 (06:22→20:40)
[2017-03-31] MEDS: NEOMYCIN/POLYMYX/BACITR OINT 15 GM TUBE EXT SCH ×2 (06:23→20:24)
[2017-03-31 06:42] LABS: BUN/CREATININE RATIO 18.1 (10-20); CALCIUM 8.8 mg/dl (8.5-10.1); CREATININE 2.1 mg/dl (0.60-1.20)
[2017-03-31 06:56] LABS: THYROID STIMULATING HORMONE 5.3 uIu/ml (0.300-4.500)
[2017-03-31 07:55] VITALS: BP 162/78; PULSE 67; TEMP 36.8; O2SAT 97
[2017-03-31] MEDS: AMLODIPINE BESYLATE 5 MG TAB PO SCH (08:33)
[2017-03-31] MEDS: FLUTICASONE/SALMETEROL 250/50 (ADVAIR) 14 PUFF/1 INHALER INH SCH ×2 (08:33→20:25)
[2017-03-31] MEDS: VENLAFAXINE HCL XR 75 MG CAPXR PO SCH (08:35)
[2017-03-31] MEDS: THIAMINE HCL 100 MG TAB PO SCH (08:35)
[2017-03-31] MEDS: RANITIDINE HCL 150 MG TAB PO SCH ×2 (08:35→20:26)
[2017-03-31] MEDS: METOPROLOL SUCC 25MG EXT REL TAB PO SCH (08:35)
[2017-03-31] MEDS: DOXAZosin MESYLATE TAB 4 MG TAB PO SCH ×2 (08:36→20:25)
[2017-03-31 14:35] VITALS: BP 160/75; PULSE 70
--- NOTE | 2017-03-31 15:13 | Psychiatric Consultation ---
Consultation Date of Consultation Mar 31, 2017. Identifying Data 76-year-old woman admitted to the medical service with hyponatremia in the setting of SIADH, hypothyroidism and possible alcohol abuse. We are consulted to evaluate the patient's mental status in preparation for admission to a correction facility. Information is gathered from the electronic medical record, and the patient and considered to be reliable. Chief Complaint "I just want to get out of here.". History of Present Illness The patient is a 76-year-old woman who currently resides at [facility] in [place]. She presented to the emergency room with reports that she needed more Ativan, that she had run out. She was found to be severely hyponatremic with a sodium of 108 and was referred for admission. Her sodium has slowly been repleted and is today close to normal at 134. She is approaching discharge although she is not yet stable enough to return to independent living and has been referred for rehabilitation. She has been denied at several facilities and a referral to [facility] is in place. They are asking apparently, through the office of aging, that we do an evaluation of her mental health, for stability and appropriateness for a senior living environment. At the time I see the patient she is seated at the bedside wrapped in a blanket. She is hard of hearing and I must speak quite loudly to be heard. She reports that she is somewhat irritable and wants to be discharged to [facility], no longer wanting to remain in the hospital. She says that her mood is generally good although feeling "depressed" today because of having to remain in the hospital. She denies ever having had any suicidal ideation or ever having made any suicide attempts. She does not see any psychiatric providers and has had her Ativan supplied by her PCP, Dr. Carrington. She indicates that she takes Ativan once a day in the morning because it helps to make her feel "more relaxed". She has no memory of being on other psychiatric medications. She says that she sleeps really well, and that her appetite is "wonderful". She denies ever having had any auditory or visual hallucinations. She has been on Ativan for many years and denies that she takes it because she feels acutely anxious but knows that she feels better after she takes it. She is happy to have a conversation with me and wants me to stay longer as she enjoys my company and then pulls out Ignacia's card from the office of aging and says that she enjoyed her conversation as well. Past Psychiatric History Current OP Treatment: no current treatment Prior OP Treatment: no prior treatment Prior Psych Hospitalizations: none Access to a Gun: No Suicide Attempts: No Past Medication Trials Long-term Ativan from PCP Past Medical/Surgical History (1) Chronic kidney disease (CKD) stage G4/A2, severely decreased glomerular filtration rate (GFR) between 15-29 mL/min/1.73 square meter and albuminuria creatinine ratio between 30-299 mg/g (2) Acute kidney injury superimposed on chronic kidney disease (3) Hypertension (4) Hyponatremia (5) Hypothyroidism Allergies Allergies: Coded Allergies: Pork (Unverified Allergy, Unknown, unknown, 03/19/17) Pork Allergy (Unverified Allergy, Unknown, unknown, 03/19/17) Tetracycline (Unverified Allergy, Unknown, unknown(not 100% sure if she's allergic to it), 03/19/17) Tramadol (Verified Adverse Reaction, Unknown, dizzy, emesis, 03/19/17) Home Medications Scheduled Aspirin (Aspirin Ec), 81 MG PO DAILY Doxazosin Mesylate (Doxazosin Mesylate), 1 TAB PO BID Fluticasone Prop/Salmeterol (Advair Diskus 250/50 60 Dose), 1 PUFF INH BID Furosemide (Furosemide), 40 MG PO DAILY Hydralazine Hcl (Apresoline), 25 MG PO TID Levothyroxine Sodium (Synthroid), 175 MCG PO DAILY Losartan Potassium (Cozaar), 100 MG PO DAILY Metoprolol Tartrate (Lopressor), 25 MG PO BID Ranitidine (Zantac), 150 MG PO BID Scheduled PRN Lorazepam (Lorazepam), 0.5 MG PO BID PRN for Anxiety Family History Diabetes mellitus Alcohol Use Alcohol Use In Past 12 Months: No (patient denies but family reports they think she drinks beer) The patient denies using alcohol citing the fact that she is a diabetic, but family have suggested that she drinks beer Smoking Use Smoking Status: Never Smoker Personal History Lives in: alone in an apartment at [address] Work History: 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[employer], 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 Relationship History: Children: 4 children, 6 grandchildren, one great-grandchild Legal History: none Review of Systems Constitutional: denies no symptoms reported, denies see HPI, denies chills, denies diaphoresis, denies fever, denies malaise, denies weakness, denies other Eyes: denies: no symptoms, as stated in HPI, eye pain, tearing, itching, redness, discharge, double vision, visual changes, blurred vision, photophobia, other ENT: denies: no symptoms reported, see HPI, ear pain, ear discharge, loss of hearing, tinnitus, nasal pain, nasal congestion, rhinorrhea, epistaxis, sore throat, stidor, throat swelling, mouth pain, mouth swelling, dental pain, gum swelling, other Cardiovascular: denies: no symptoms reported, see HPI, chest pain, chest tightness, chest pressure, diaphoresis, palpitations, syncope, other Respiratory: denies: no symptoms reported, see HPI, cough, orthopnea, short of breath, stridor, wheezing, sputum production, cyanosis, WHIPPLE, PND, other Gastrointestinal: denies no symptoms reported, denies see HPI, denies abdominal pain, denies constipation, denies diarrhea, denies nausea, denies vomiting, denies other Genitourinary - Female: denies: no symptoms, see HPI, rash, amenorrhea, dysmenorrhea, menorrhagia, metrorrhagia, , vaginal bleeding, vaginal itching, vaginal discharge, vulvadynia, other Musculoskeletal: other (feet pain) Integumentary: denies no symptoms reported, denies see HPI, denies change in color, denies change in hair/nails, denies dryness, denies lesions, denies lumps , denies rash, denies other Neurologic: denies: no symptoms, see HPI, headache, numbness, paresthesias, pre -existing deficit, seizure, tingling, tremors, general weakness, tics, focal weakness, vertigo, lethargy, memory loss, dizziness, other Endocrine: denies: no symptoms, as stated in HPI, cold intolerance, heat intolerance, hair changes, goiter, polydipsia, polyuria, skin changes, other Hematologic / Lymphatic: denies: no symptoms, as stated in HPI, abnormal clotting, adenopathy, anemia, easy bleeding, easy bruising, gums bleeding, petechiae, other Examination Physical Examination As per Dr. Franklin Vital Signs Vital Signs Past 12 Hours Date Time Temp Pulse Resp B/P (MAP) Pulse Ox O2 Delivery O2 Flow Rate FiO2 03/31/17 14:35 70 160/75 (103) 03/31/17 08:30 Room Air 03/31/17 07:55 36.8 67 18 162/78 (106) 97 Room Air Laboratory Results Last 24 Hours Test 03/30/17 16:26 03/30/17 20:20 03/31/17 05:28 03/31/17 07:54 Bedside Glucose 114 mg/dl 110 mg/dl 78 mg/dl White Blood Count 3.21 K/uL Red Blood Count 3.06 M/uL Hemoglobin 9.4 g/dL Hematocrit 28.6 % Mean Corpuscular Volume 93.5 fL Mean Corpuscular Hemoglobin 30.7 pg Mean Corpuscular Hemoglobin Concent 32.9 g/dl Platelet Count 188 K/uL Mean Platelet Volume 9.0 fL Neutrophils (%) (Auto) 53.9 % Lymphocytes (%) (Auto) 21.5 % Monocytes (%) (Auto) 15.6 % Eosinophils (%) (Auto) 7.5 % Basophils (%) (Auto) 0.6 % Neutrophils # (Auto) 1.73 K/uL Lymphocytes # (Auto) 0.69 K/uL Monocytes # (Auto) 0.50 K/uL Eosinophils # (Auto) 0.24 K/uL Basophils # (Auto) 0.02 K/uL RDW Standard Deviation 49.7 fL RDW Coefficient of Variation 14.5 % Immature Granulocyte % (Auto) 0.9 % Immature Granulocyte # (Auto) 0.03 K/uL Sodium Level 134 mmol/L Potassium Level 4.0 mmol/L Chloride Level 102 mmol/L Carbon Dioxide Level 24 mmol/L Anion Gap 8.0 mmol/L Blood Urea Nitrogen 38 mg/dl Creatinine 2.10 mg/dl Est Creatinine Clear Calc Drug Dose 22.6 ml/min Estimated GFR () 26.0 Estimated GFR (Non- 22.5 BUN/Creatinine Ratio 18.1 Random Glucose 70 mg/dl Calcium Level 8.8 mg/dl Thyroid Stimulating Hormone (TSH) 5.300 uIu/ml Free Thyroxine 1.61 ng/dl Chemistry Specimen Hemolysis Test 03/31/17 11:34 Bedside Glucose 114 mg/dl Mental Examination During interview pt is: cooperative, other (disoriented to month and place thinking it was December and she was at her apartment and [place]) Appearance: appropriately groomed Eye contact is: good Motor behavior is: no abnormal motor movements Speech: normal in rate, rhythm & volume (slightly loud due to impaired hearing) Affect: irritable (wanting to be discharged to [facility]) Mood is: irritable Thought process: goal directed Thought content: reality based without delusions Suicidal thought are: denied Homicidal thoughts are: denied Hallucinations: denies auditory, denies visual Cognition: attention grossly intact, language grossly intact, other (some memory impairment) Intelligence estimated to be: average Insight: fair Judgement: fair Impression / Recommendations Impression 76-year-old woman admitted to the medical service with hyponatremia. We are consulted to evaluate mental status in preparation for [facility] placement. She admits to being on long-standing Ativan which she uses in the morning because it helps to relax her. There are notes in the chart that indicates she may overuse this. She is currently ordered half a milligram of Ativan twice a day here in the hospital and I'm going to take the liberty of reducing that to once a day with the hope that she can be weaned off. She has been started on an antidepressant here, initially Celexa 10 been switched to Effexor XR 75 which has less problematic hyponatremia associated with it. I agree this is likely a good choice if we are to address her long-standing anxiety without using benzodiazepines. At the time I see her she is perfectly delightful, cooperative although with some mild disorientation. I believe she would benefit from being in [facility] for rehabilitation and believe she is appropriate and not surrounding. Inventory Assets Strengths: Willingness for treatment Needs: Possible need for hearing aid Risk Factors Assessment : Yes /single/: Yes Higher / Fall in social status: No Access to guns: No Health problems: Yes Mental Health Diagnoses: Yes Substance use disorders: No (inconclusive evidence) Previous attempt: No Previous psychiatric stay: No Protective Factors Assessment Sikh beliefs: No : No Responsible for young children: No Employed: No Stable relationships: Yes Supportive family: Yes Recommendations (1) Anxiety .03/31 - Patient with long-standing Ativan use, possibly overusing. Recommend reducing to once daily only with hopes to discontinue altogether - Agree with starting Effexor XR 75 mg daily to target her chronic anxiety as we taper off of benzodiazepines - The patient is mildly disoriented today which may be multifactorial given her hyponatremia, age, change in environment. - The patient's condition is stable and she is appropriate for transfer to a correction facility. Has been reviewed with Dr. Jennifer Enriquez
[2017-03-31] MEDS ORDERED: LORAZEPAM 0.5 MG TAB PO PRN (15:15)
[2017-03-31 15:23] VITALS: BP 181/71; PULSE 69; TEMP 36.6; O2SAT 97
[2017-03-31 16:00] VITALS: O2SAT 97
--- NOTE | 2017-03-31 17:44 | Family Medicine Progress Note ---
Progress Note Date of Service Mar 31, 2017. Assessment and Plan 76 y/o F Hx SIADH, hypothyroidism, depression/anxiety, DM, suspected ETOH abuse. Pt presented with a complaint of depression as she had run out of her Lorazepam and wanted a refill. During workup for mental health admit, found to have Na of 108. Denies additional symptoms although she had an episode of vomiting while in the ER. She is awake and alert although per her family she may downplay any issues. She denies alcohol consumption, however, her family states that she drinks beer daily - they could not quantify an amount. Noncompliance with her medications is also suspected. Severe hyponatremia: Admit Na 107. Urine sodium 19, Urine Osm 209. Origin likely multifactorial, with PMH SIADH, hypothyroidism, and suspected daily etoh intake. Initial sodium repletion gradually with goal of ~6-8 mEq increases in 24 hours. Tx started with 0.9% NS IVF at 90 mL/hr, along with q4h serial BMP s. Placed on fluid restriction as well. Na has been trending upwards, with IVF held briefly to control rate of rise, then stopped morning of 17Sep. NS IVF restarted on 19Sep for rising Cr. - Ongoing lab sodium monitoring, most recently stabilized at 134. Bradycardia: Noted on 15-16Sep to be bradycardic as low as 32 bpm. EKG on 17Sep at 0722 noted to be sinus tiffani 43 with a question of 2nd degree AV block. 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 - Reduced metoprolol to Toprol-XL 25 mg daily. If new blood pressure agent needed, consider amlodipine (and not further increase in b-blockers). Suspected ETOH abuse / Agitation: EtOH on admit 34 mg/dL. Hard to assess pts daily intake due to denial of drinking (says last beer was weeks/months ago). Started CIWA protocol (ativan, librium) to include Ativan prn for DT coverage/ agitation as well as thiamine & folate daily. Had periods of agitation ( hitting nurses, disoriented), so was given ativan bolus several times. - Ativan DCd today - -23Sep: Much improved alertness, conversation. Bilateral foot skin changes and onychomycosis s/p bilateral great toenail removal: Appearance of chronic keratotic skin buildup with concerns for underlying further tissue damage. Also has diseased (likely fungal) toenails - 17Sep Podiatry consult (appreciate recs): onychogryphotic toenails, paronychia. Debridement performed, removal of great toenails. - Pt will require outpatient surgical suite for further management of wounds. - Continue antifungal scrubs and wound care/dressing. - Heparin remains on hold beginning 19Sep. - Eventual f/u in the wound care clinic upon d/c from hospital. Hypokalemia: Admit K 3.2. Given single dose of KCl tab. Serial rechecks now within normal range. Anemia: Likely associated with hx CKD. On this admit, folate level nl, vitamin B12 level elevated, iron level nl, TIBC low. As inpt, Hb trending downwards over days from 10.4 -> 8.5. Unclear if other source of bleeding. - 19Sep retic count 0.03, held heparin and aspirin. - 20Sep Iron 63, TIBC 189, Transferrin 153 (sat 29%), ferritin 303. - 20Sep transfused one unit PRBCs, held an additional unit prn. Hb today 9.4. Hypothyroidism: Elevated TSH (19.6) was likely due to medical noncompliance. Given a single IV dose of Synthroid 100 mcg on 15Sep, as this may have contributed to her hyponatremia. - Currently on home synthroid 175 mcg dose as inpt. - TSH 5.3, Free t4: 1.6 CKD 3-4: Cr in 2014 around 2.0 and in 2016 around 2.4. Trended upwards towards 2.7, since then downwards perhaps d/t IVF + addition of abx for possible UTI (7 days Ceftriaxone, now DCd). - Held losartan on in case is contributing to elevated Cr. - 19Sep FeNa 1.4%, suggesting intrinsic issue. UA on 19Sep, positive for nitrites, UCx noted greater than three types of organisms; pt was started on ceftriaxone. - 19Sep Ordered renal ultrasound which noted a right atrophic/echogenic kidney ( similar to previous), mild left kidney cortical atrophy, no hydronephrosis. Depression / Anxiety: Reportedly on lorazepam as outpt. Presently on CIWA benzodiazepines. - 19Sep started on venlafaxine ER 75 mg PO q AM - has lower incidence of SIADH. Glucose intolerance: Reportedly not on any related medication as outpt. - Trending glucose levels and placed on insulin sliding scale for coverage while inpt. - HbA1C 4.9 HTN: On hydralazine 25 mg TID, metoprolol succinate 25 mg daily, doxazosin (4 mg BID instead of prior reported 1 mg dose BID) - Held losartan due to rising Cr. Changed to tartrate to metoprolol succinate 25 mg PO daily. - started norvasc 10 mg PO q AM. Asthma: On advair. Disposition: Working on [facility] paperwork; psych consult obtained for mental health eval prior to acceptance at [facility]. - We recommend short term (<30days) rehab with goal of return to home with home services - Consulted PT/OT (eval appreciated): 19Sep noted pt would benefit from SNF upon hospital d/c. DVT prophy: Heparin Code status: Full code Resident Tracking Resident Involvement: Resident Care Provided Care Provided: Adult Hospital Medicine
[2017-04-01] VITALS (7 sets, daily range): BP systolic 127–170; BP diastolic 65–81; PULSE 67–75; TEMP 36.5–36.8; O2SAT 94–97
[2017-04-01] MEDS: LEVOTHYROXINE 175 MCG TAB PO SCH (05:36)
[2017-04-01] MEDS: HEPARIN SOD 5000 UNIT/0.5 ML CARP SQ SCH ×3 (05:40→20:20)
[2017-04-01] MEDS: COLLAGENASE OINT 30 GM TUBE EXT SCH ×2 (08:21→20:41)
[2017-04-01] MEDS: FLUTICASONE/SALMETEROL 250/50 (ADVAIR) 14 PUFF/1 INHALER INH SCH ×2 (08:21→20:16)
[2017-04-01] MEDS: RANITIDINE HCL 150 MG TAB PO SCH ×2 (08:22→20:17)
[2017-04-01] MEDS: THIAMINE HCL 100 MG TAB PO SCH (08:22)
[2017-04-01] MEDS: VENLAFAXINE HCL XR 75 MG CAPXR PO SCH (08:22)
[2017-04-01] MEDS: DOXAZosin MESYLATE TAB 4 MG TAB PO SCH ×2 (08:22→20:16)
[2017-04-01] MEDS: METOPROLOL SUCC 25MG EXT REL TAB PO SCH (08:23)
[2017-04-01] MEDS: NEOMYCIN/POLYMYX/BACITR OINT 15 GM TUBE EXT SCH ×2 (08:23→20:18)
[2017-04-01] MEDS: AMLODIPINE BESYLATE 5 MG TAB PO SCH (08:23)
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
[2017-04-02 00:22] VITALS: BP_SYST 170; BP_SYST 172; BP_DIAS 75; BP_DIAS 78; PULSE 74; TEMP 37.1; O2SAT 97
[2017-04-02] MEDS: HEPARIN SOD 5000 UNIT/0.5 ML CARP SQ SCH ×2 (06:28→14:00)
[2017-04-02] MEDS: LEVOTHYROXINE 175 MCG TAB PO SCH (06:29)
[2017-04-02 07:46] VITALS: BP_SYST 181; BP_SYST 192; BP_DIAS 74; BP_DIAS 78; PULSE 75; TEMP 36.8; O2SAT 99
[2017-04-02] MEDS: NEOMYCIN/POLYMYX/BACITR OINT 15 GM TUBE EXT SCH (07:47)
[2017-04-02] MEDS: COLLAGENASE OINT 30 GM TUBE EXT SCH (07:47)
[2017-04-02] MEDS: AMLODIPINE BESYLATE 5 MG TAB PO SCH (07:48)
[2017-04-02] MEDS: METOPROLOL SUCC 25MG EXT REL TAB PO SCH (07:48)
[2017-04-02] MEDS: RANITIDINE HCL 150 MG TAB PO SCH (07:48)
[2017-04-02] MEDS: VENLAFAXINE HCL XR 75 MG CAPXR PO SCH (07:48)
[2017-04-02] MEDS: FLUTICASONE/SALMETEROL 250/50 (ADVAIR) 14 PUFF/1 INHALER INH SCH (07:48)
[2017-04-02] MEDS: THIAMINE HCL 100 MG TAB PO SCH (07:48)
[2017-04-02] MEDS: DOXAZosin MESYLATE TAB 4 MG TAB PO SCH (07:49)
[2017-04-02] MEDS ORDERED: NRV5 PO (10:11)
[2017-04-02] MEDS ORDERED: FLV1 PO (10:11)
[2017-04-02] MEDS ORDERED: EFFSR75 PO (10:11)
[2017-04-02] MEDS ORDERED: ACET-1047 PO (10:11)
[2017-04-02] MEDS ORDERED: NSPO EXT (10:11)
[2017-04-02] MEDS ORDERED: SNTO30 EXT (10:11)
[2017-04-02] MEDS ORDERED: THM100 PO (10:11)
--- NOTE | 2017-04-02 12:07 | Discharge Instructions ---
Discharge Instructions Date of Service Apr 02, 2017. Admission Reason for Admission: Depression, Hyponatremia Discharge Discharge Diagnosis / Problem: Hyponatremia Discharge Goals Goal(s): Improve function, Improve disease control Activity Recommendations Activity Limitations: resume your previous activity . Instructions / Follow-Up Instructions / Follow-Up Mrs Figueroa was admitted to [facility] on 03/19/17 requesting benzodiazepines as she had run out of her medication at home. Routine workup showed hyponatremia with a sodium of 110. She appeared to by asymptomatic with this. Suspect multifactorial secondary to beer potomania, hypothyroidism, Hx SIADH. This improved with gentle rehydration. Recommend repeating BMP in 3-5 days. Chronic kidney disease stage 4 - her losartan was held as Cr increased from admission, however this may be restarted as an outpatient with close follow up with serial BMP. She was hypothyroid, likely due to medication non compliance so was started back on her normal dose of levothyroxine. Recommend repeating her TSH in approximately 2 weeks. Alcohol use disorder - went through withdrawal as an inpatient but no longer requiring benzodiazepines Bilateral foot skin changes and onychomycosis s/p bilateral great toenail removal: Appearance of chronic keratotic skin buildup with concerns for underlying further tissue damage. - 17Sep Podiatry consult (appreciate recs): onychogryphotic toenails, paronychia. Debridement performed, removal of great toenails. - Continue antifungal scrubs and wound care/dressing. - Eventual f/u in the wound care clinic upon d/c from hospital. Anemia: secondary to CKD and chronic disease. - monitor as outpatient with CBC in the next 2-4 weeks CKD 3-4: Cr in 2014 around 2.0 and in 2015 around 2.4. Trended upwards towards 2.7, since then downwards perhaps d/t IVF + addition of abx for possible UTI (7 days Ceftriaxone, now DCd). - Held losartan on in case is contributing to elevated Cr. - 19Sep FeNa 1.4%, suggesting intrinsic issue. UA on 19Sep, positive for nitrites, UCx noted greater than three types of organisms; pt was started on ceftriaxone. (now DCd) - 19Sep Ordered renal ultrasound which noted a right atrophic/echogenic kidney ( similar to previous), mild left kidney cortical atrophy, no hydronephrosis. Depression / Anxiety: Reportedly on lorazepam as outpt. Previously on CIWA benzodiazepines prn, now DCd. - 19Sep started on venlafaxine ER 75 mg PO q AM - has lower incidence of SIADH. HTN: On hydralazine 25 mg TID, metoprolol succinate 25 mg daily, doxazosin (4 mg BID instead of prior reported 1 mg dose BID) - Held losartan due to rising Cr. Changed to tartrate to metoprolol succinate 25 mg PO daily. - started norvasc 10 mg PO q AM. Asthma: Continue advair. She is now being discharged to rehabilitation with the aim of going home. Although given her unkempt appearance and lack of awareness of the severity of her medical conditions there is some concern with capacity to make her disposition decisions. However she is in agreement with her daughter to go to rehabilitation. Please follow up with wound care (Dr Medina) within the next weeks and podiatry ( Dr Lopez) within the next month. Current Hospital Diet Patient's current hospital diet: Regular Diet Discharge Diet Recommended Diet: Regular Diet Pending Studies Studies pending at discharge: no Laboratory Results Hemoglobin A1c Test 03/22/17 07:31 Range/Units Estimated Average Glucose 94 mg/dl Hemoglobin A1c 4.9 4.5-5.6 % Medical Emergencies . Who to Call and When: Medical Emergencies: If at any time you feel your situation is an emergency, please call 911 immediately. . Non-Emergent Contact Non-Emergency issues call your: Primary Care Provider . . "Provider Documentation" section prepared by Rober Gregg. . VTE Core Measure Inpt VTE Proph given/why not?: Unfractionated heparin SQ, SCD's
[2017-04-02] MEDS ORDERED: TPRSR25 PO (12:09)
[2017-04-02 13:18] VITALS: Ht 157.5 cm; Wt 79.6 kg
[2017-04-02 14:04] VITALS: BP 123/68; PULSE 75; TEMP 36.8; O2SAT 99
--- NOTE | 2017-04-18 13:34 | EDITING REQUIRED CODING QUERY ---
CODING QUERY To promote full compliance with coding requirements relating to patient care, provider participation is requested in all cases of nuclear plant operator uncertainty. Please assist us with the question(s) below: Coding Question(s): Dr. Phipps, The following is documented in the progress notes: Glucose intolerance: Reportedly not on any related medication as outpt. - Trending glucose levels and placed on insulin sliding scale for coverage while inpt. - HbA1C 4.9 Diabetes mellitus II is documented in the H&P. Please clarify if the patient had: ( ) possible no diabetes mellitus type 2 ( ) glucose intolerance ( ) other, please explain Physician's Response(s): Thank you for your time, SEFERINO Elliott, DIALER
[2017-04-20] MEDS ORDERED: LACT12LO TOP (09:20)
== END 2017-04-02 16:36 | DRG 644 ==
LOC: EDBD 15:47 → C.EDA 15:48 → C.2T 20:48 → ENRESERV 21:16 → C.2T 03-22 19:12 → ENRESERV 03-28 13:43 → C.4E 03-28 14:39
PROVIDERS: ADMIT Internal Medicine; ATTEND Hospitalist
PROC: 0HDRXZZ Extraction of Toe Nail, External Approach (ICD-10-PCS; principal; 2017-03-22)
PROC: 0HDMXZZ Extraction of Right Foot Skin, External Approach (ICD-10-PCS; 2017-03-25)
PROC: 0HDNXZZ Extraction of Left Foot Skin, External Approach (ICD-10-PCS; 2017-03-25)
DX: E22.2 Syndrome of inappropriate secretion of antidiuretic hormone (principal); F10.239 Alcohol dependence with withdrawal, unspecified; L97.929 Non-pressure chronic ulcer of unspecified part of left lower leg with unspecified severity; L97.919 Non-pressure chronic ulcer of unspecified part of right lower leg with unspecified severity; N18.4 Chronic kidney disease, stage 4 (severe); R00.1 Bradycardia, unspecified; I44.0 Atrioventricular block, first degree; Y90.1 Blood alcohol level of 20-39 mg/100 ml; B35.1 Tinea unguium; B35.3 Tinea pedis; L60.2 Onychogryphosis; L03.032 Cellulitis of left toe; L03.031 Cellulitis of right toe; L84 Corns and callosities; E87.6 Hypokalemia; D63.1 Anemia in chronic kidney disease; I12.9 Hypertensive chronic kidney disease with stage 1 through stage 4 chronic kidney disease, or unspecified chronic kidney disease; I25.10 Atherosclerotic heart disease of native coronary artery without angina pectoris; E11.622 Type 2 diabetes mellitus with other skin ulcer; E11.22 Type 2 diabetes mellitus with diabetic chronic kidney disease; J45.909 Unspecified asthma, uncomplicated; E11.43 Type 2 diabetes mellitus with diabetic autonomic (poly)neuropathy; K31.84 Gastroparesis; E03.9 Hypothyroidism, unspecified; T38.1X6A Underdosing of thyroid hormones and substitutes, initial encounter; F41.9 Anxiety disorder, unspecified; F32.9 Major depressive disorder, single episode, unspecified; Z91.128 Patient's intentional underdosing of medication regimen for other reason; Z91.14 Patient's other noncompliance with medication regimen; Z79.82 Long term (current) use of aspirin; Z79.51 Long term (current) use of inhaled steroids; Z79.899 Other long term (current) drug therapy

== ENCOUNTER → 2017-04-10 | Outpatient (CLI) | payer OTHER ==
[~2017-04-10] MED LIST changes: +ACET-1047 PO; -APIX1TAB3 PO; -ATV5 PO; -CHOL1TAB PO; +EFFSR75 PO; +FLV1 PO; -LOSA100T65 PO; -LPR25 PO; -LSX40 PO; +NRV5 PO; +SNTO30 EXT; +THM100 PO; +TPRSR25 PO; -TRAM-10 PO
[2017-04-10 08:10] LABS: BASO % 1.6 %; BASO ABS # 0.05 K/uL (0-0.2); COMPLETE YES; EOS % 7.8 %; HEMATOCRIT 28.5 % (37-47); IG% 0.3 %; LYMPH % 30.7 %; LYMPH ABS # 0.99 K/uL (1.2-3.4); MEAN CELL VOLUME 95.3 fL (80-100); MEAN CORPUSCULAR HEMOGLOBIN 31.4 pg (25-34); MEAN PLATELET VOLUME 9.5 fL (7.4-10.4); MONO % 10.9 %; NEUT % 48.7 %; PLATELET COUNT 273 K/uL (130-400); RED BLOOD COUNT 2.99 M/uL (4.2-5.4); WHITE BLOOD COUNT 3.22 K/uL (4.8-10.8)
[2017-04-10 08:18] LABS: BLOOD UREA NITROGEN 46 mg/dl (7-18); BUN/CREATININE RATIO 18.2 (10-20); CALCIUM 9.1 mg/dl (8.5-10.1); CARBON DIOXIDE 24 mmol/L (21-32); CHLORIDE 105 mmol/L (98-107); GLUCOSE 112 mg/dl (70-99); POTASSIUM 3.9 mmol/L (3.5-5.1); SODIUM 139 mmol/L (136-145)
== END ==
LOC: C.LABCC 07:41
PROVIDERS: ATTEND Internal Medicine
DX: D64.9 Anemia, unspecified (principal); E87.1 Hypo-osmolality and hyponatremia; I25.10 Atherosclerotic heart disease of native coronary artery without angina pectoris

== ENCOUNTER → 2017-04-13 | Outpatient (CLI) | payer OTHER ==
[2017-04-13 10:32] LABS: BLOOD UREA NITROGEN 49 mg/dl (7-18); BUN/CREATININE RATIO 18.9 (10-20); CALCIUM 8.7 mg/dl (8.5-10.1); CARBON DIOXIDE 22 mmol/L (21-32); CHLORIDE 108 mmol/L (98-107); GLUCOSE 70 mg/dl (70-99); POTASSIUM 4.2 mmol/L (3.5-5.1); SODIUM 139 mmol/L (136-145)
== END | disposition home or self-care (01) ==
LOC: C.LABCC 09:09
PROVIDERS: ATTEND Internal Medicine
DX: N18.9 Chronic kidney disease, unspecified (principal)

== ENCOUNTER → 2017-04-17 | Outpatient (CLI) | payer OTHER ==
[~2017-04-17] MED LIST changes: +LACT12LO TOP
[2017-04-17 08:32] LABS: MEAN CELL VOLUME 94.9 fL (80-100); MEAN CORPUSCULAR HEMOGLOBIN 30.5 pg (25-34); MEAN CORPUSCULAR HGB CONC 32.1 g/dl (32-36); MEAN PLATELET VOLUME 9.9 fL (7.4-10.4); PLATELET COUNT 230 K/uL (130-400); RED BLOOD COUNT 2.95 M/uL (4.2-5.4); WHITE BLOOD COUNT 3.69 K/uL (4.8-10.8)
[2017-04-17 08:37] LABS: BLOOD UREA NITROGEN 45 mg/dl (7-18); BUN/CREATININE RATIO 18.8 (10-20); CALCIUM 8.3 mg/dl (8.5-10.1); CARBON DIOXIDE 23 mmol/L (21-32); CHLORIDE 110 mmol/L (98-107); GLUCOSE 72 mg/dl (70-99); POTASSIUM 4.2 mmol/L (3.5-5.1); SODIUM 141 mmol/L (136-145)
== END ==
LOC: C.LABCC 08:10
PROVIDERS: ATTEND Internal Medicine
DX: I25.10 Atherosclerotic heart disease of native coronary artery without angina pectoris (principal)

== ENCOUNTER → 2017-04-24 | Outpatient (CLI) | payer OTHER ==
[2017-04-24 09:42] LABS: HEMATOCRIT 33.9 % (37-47); MEAN CELL VOLUME 94.2 fL (80-100); MEAN CORPUSCULAR HEMOGLOBIN 30.8 pg (25-34); MEAN CORPUSCULAR HGB CONC 32.7 g/dl (32-36); MEAN PLATELET VOLUME 9.7 fL (7.4-10.4); PLATELET COUNT 259 K/uL (130-400); WHITE BLOOD COUNT 3.86 K/uL (4.8-10.8)
--- NOTE | 2017-04-28 13:23 | CODING QUERY NO DIAGNOSIS ---
: 1940 TREATMENT RENDERED WITHOUT A DIAGNOSIS-PHYSICIAN ORDER IS NEEDED To promote full compliance with coding requirements relating to patient care, physician participation is requested in all cases of pre coder uncertainty. Please assist us with providing a copy of the signed physician order including diagnoses for the CBC W/O Diff that was rendered on 04/24/17. [facility] you [facility] Information Management Once completed, please kindly fax back to [phone] For questions please call [phone]
== END | disposition home or self-care (01) ==
LOC: C.LABSPEC 09:29
PROVIDERS: ATTEND Internal Medicine
DX: I12.9 Hypertensive chronic kidney disease with stage 1 through stage 4 chronic kidney disease, or unspecified chronic kidney disease (principal); E11.22 Type 2 diabetes mellitus with diabetic chronic kidney disease; N18.4 Chronic kidney disease, stage 4 (severe); E11.621 Type 2 diabetes mellitus with foot ulcer; L97.421 Non-pressure chronic ulcer of left heel and midfoot limited to breakdown of skin; L97.411 Non-pressure chronic ulcer of right heel and midfoot limited to breakdown of skin; I25.10 Atherosclerotic heart disease of native coronary artery without angina pectoris; J45.909 Unspecified asthma, uncomplicated; E22.2 Syndrome of inappropriate secretion of antidiuretic hormone; F32.9 Major depressive disorder, single episode, unspecified

== ENCOUNTER 2017-04-26 15:45 | Observation (INO) | payer OTHER ==
[~2017-04-26] VITALS: Ht 157.5 cm; Wt 72.7 kg
[2017-04-26] MEDS ORDERED: SODIUM CHLORIDE 0.9% 1000ML 1,000 ML IV STA (16:01)
[2017-04-26] MEDS ORDERED: SODIUM CHLORIDE 0.9% 500ML 500 ML IV STA (16:01)
[2017-04-26 16:14] LABS: BASO % 0.4 %; BASO ABS # 0.02 K/uL (0-0.2); COMPLETE YES; EOS % 2.1 %; HEMATOCRIT 30.3 % (37-47); IG% 0.4 %; LYMPH % 18.8 %; LYMPH ABS # 0.96 K/uL (1.2-3.4); MEAN CELL VOLUME 93.5 fL (80-100); MEAN CORPUSCULAR HEMOGLOBIN 31.5 pg (25-34); MEAN CORPUSCULAR HGB CONC 33.7 g/dl (32-36); MEAN PLATELET VOLUME 9.2 fL (7.4-10.4); MONO % 9.4 %; NEUT % 68.9 %; PLATELET COUNT 214 K/uL (130-400); RED BLOOD COUNT 3.24 M/uL (4.2-5.4); WHITE BLOOD COUNT 5.12 K/uL (4.8-10.8)
[2017-04-26] MEDS ORDERED: ONDANSETRON INJ 2 MG/ML 2 ML VIAL IV STA (16:15)
[2017-04-26 16:36] LABS: ALKALINE PHOSPHATASE 141 U/L (45-117); ALT/SGPT 15 U/L (12-78); AST/SGOT 20 U/L (15-37); BLOOD UREA NITROGEN 34 mg/dl (7-18); BUN/CREATININE RATIO 10.9 (10-20); CALCIUM 8.7 mg/dl (8.5-10.1); CARBON DIOXIDE 22 mmol/L (21-32); CHLORIDE 107 mmol/L (98-107); CREATININE 3.16 mg/dl (0.60-1.20); GLUCOSE 119 mg/dl (70-99); POTASSIUM 4.7 mmol/L (3.5-5.1); SODIUM 138 mmol/L (136-145)
--- NOTE | 2017-04-26 17:18 | DIAGNOSTIC IMAGING REPORT ---
CT SCAN OF THE ABDOMEN AND PELVIS WITHOUT CONTRAST CLINICAL HISTORY: Vomiting, abdominal pain. Acute renal failure COMPARISON STUDY: No previous studies for comparison. TECHNIQUE: CT scan of the abdomen and pelvis was performed from the lung bases to the proximal femurs. Images are reviewed in the axial, sagittal, and coronal planes. IV contrast was not administered for this examination. A dose lowering technique was utilized adhering to the principles of ALARA. CT DOSE: 354.76 mGy.cm FINDINGS: Lower chest: The heart is enlarged. There are bibasal atelectatic changes. Liver: The unenhanced liver is normal in size, contour, and attenuation. There is no intrahepatic biliary ductal dilatation. Gallbladder: Unremarkable. Spleen: The spleen is mildly enlarged measuring 11.5 cm Pancreas: Unremarkable. Adrenal glands: Unremarkable. Kidneys: The right kidney is markedly atrophic. No renal calculi are visualized. There is no hydronephrosis. No ureteral or bladder calculi are visualized. Bowel: There are no transition zones indicate bowel obstruction. There are no findings to indicate acute diverticulitis. There are no findings to indicate acute appendicitis. Peritoneum: There is no intraperitoneal free air or abdominal ascites. Vasculature: There is no aortic aneurysm. There are moderately extensive atheromatous calcifications Adenopathy: There are mildly prominent iliac lymph nodes. There is no pathologic adenopathy by size criteria. Pelvic viscera: There is a 28 mm right adnexal cyst likely ovarian Skeletal structures: There is anterior abdominal wall subcutaneous nodules, possibly secondary to prior injection sites. There is an old superior endplate T12 compression deformity IMPRESSION: 1. No evidence of bowel obstruction. No evidence of free air 2. Atrophic right kidney 3. 28 mm right adnexal cyst likely ovarian 4. No acute inflammatory changes Electronically signed by: Marek Garcia M.D. 04/26/2017 5:17 PM Dictated Date/Time: 04/26/2017 5:12 PM
[2017-04-26 17:51] LABS: URINE APPEARANCE CLEAR (CLEAR); URINE BILIRUBIN NEG (NEG); URINE COLOR YELLOW; URINE EPITHELIAL CELL AUTO >30 /lpf (0-5); URINE NITRITE NEG (NEG); URINE SPECIFIC GRAVITY 1.015 (1.000-1.030); UROBILINOGEN NEG (NEG)
[2017-04-26 17:53] LABS: MANUAL MICROSCOPIC REQUIRED? NO; REVIEW REQ? YES
[2017-04-26] MEDS ORDERED: MAGNESIUM HYDROXIDE SUSP 30 ML UDC PO PRN (18:15)
[2017-04-26] MEDS ORDERED: POLYETHYLENE (MIRALAX) 17 GM PACK PO PRN (18:15)
[2017-04-26] MEDS ORDERED: ALUMINUM/MAGNESIUM/SIMETH (MAALOX MAX) 30 ML UDC PO PRN (18:15)
[2017-04-26] MEDS ORDERED: ACETAMINOPHEN 325 MG TAB PO PRN (18:15)
[2017-04-26] MEDS ORDERED: ONDANSETRON INJ 2 MG/ML 2 ML VIAL IV PRN (18:15)
[2017-04-26] MEDS ORDERED: ZOLPIDEM TARTRATE 5 MG TAB PO PRN (18:15)
--- NOTE | 2017-04-26 18:28 | History and Physical ---
History & Physical Date of Service Apr 26, 2017. History & Physical acute on chronic renal failure, [id number]
--- NOTE | 2017-04-26 18:46 | EMERGENCY ROOM VISIT NOTE ---
History Report prepared by Norm: Marc Villalobos Under the Supervision of: Dr. Corby Mcclellan M.D. First contact with patient: 16:00 Chief Complaint: ABDOMINAL PAIN Stated Complaint: VOMITING, NAUSEA, AB PAIN Nursing Triage Summary: Patient reports nausea and vomiting since 0300 this morning. Having upper mid abd. pain. Denies diarrhea or constipation. History of Kidney failure. History of Present Illness The patient is a 76 year old female with a history of kidney failure who presents to the Emergency Room from [facility] with complaints of a persistent illness that started around 0300 this morning. She says that she has been having upper abdominal pain, with nausea and episodes of vomiting. She notes that she had 2 episodes of vomiting, and she felt like she needed to have a 3rd episode, but could not get anything to come out. The patient states that she is still having the abdominal pain and is still nauseous. She adds that her mouth is very dry. She says that she still has her gallbladder. The patient adds that she has some back pain. Pt denies LOC, headache, fevers, chills, diaphoresis, visual changes, neck pain, chest pain, breathing difficulties, melena, hematochezia, numbness, weakness, lymphadenopathy, rash, or other complaints. Source of History: patient Onset: 299 morning Position: other (global - illness) Timing: other (persistent) Associated Symptoms: + nausea, + vomiting, + abdominal pain, + back pain Note: Associated symptoms: Dry mouth. Review of Systems See HPI for pertinent positives and negatives. A total of ten systems were reviewed and were otherwise negative. Past Medical & Surgical Medical Problems: (1) Acute kidney injury superimposed on chronic kidney disease (2) acute on chronic renal failrue (3) Anemia (4) Anemia associated with chronic renal failure (5) Anxiety (6) Chronic kidney disease (CKD) stage G4/A2, severely decreased glomerular filtration rate (GFR) between 15-29 mL/min/1.73 square meter and albuminuria creatinine ratio between 30-299 mg/g (7) Hypertension (8) Hypertension (9) Hypothyroidism (10) Proteinuria Family History Diabetes mellitus Social History Smoking Status: Never Smoker Alcohol Use: none Drug Use: none Marital Status: single Housing Status: lives alone Occupation Status: retired Current/Historical Medications Scheduled Amlodipine Besylate (Amlodipine Besylate), 10 MG PO QAM Aspirin (Aspirin Ec), 81 MG PO DAILY Doxazosin Mesylate (Doxazosin Mesylate), 4 MG PO BID Fluticasone Prop/Salmeterol (Advair Diskus 250/50 60 Dose), 1 PUFF INH BID Folic Acid (Folic Acid), 1 MG PO QAM Hydralazine Hcl (Apresoline), 25 MG PO TID Levothyroxine Sodium (Synthroid), 175 MCG PO DAILY Metoprolol Succinate (Metoprolol Succinate ER), 25 MG PO QAM Ranitidine (Zantac), 150 MG PO BID Thiamine HCl (Vitamin B-1), 100 MG PO QAM Venlafaxine Hcl (Effexor Extended Rel), 75 MG PO QAM Scheduled PRN Acetaminophen (Mapap), 650 MG PO Q4H PRN for Pain or Fever Allergies Coded Allergies: Pork (Unverified Allergy, Unknown, unknown, 04/26/17) Pork Allergy (Unverified Allergy, Unknown, unknown, 04/26/17) Tetracycline (Unverified Allergy, Unknown, unknown(not 100% sure if she's allergic to it), 04/26/17) Tramadol (Verified Adverse Reaction, Unknown, dizzy, emesis, 04/26/17) Physical Exam Vital Signs Date Time Temp Pulse Resp B/P (MAP) Pulse Ox O2 Delivery O2 Flow Rate FiO2 04/26/17 18:00 88 20 152/87 95 Room Air 04/26/17 16:09 91 04/26/17 15:52 36.9 90 147/42 96 Room Air Physical Exam GENERAL: Awake, alert, uncomfortable-appearing, in no distress HENT: Normocephalic, atraumatic. Dry mucous membranes. EYES: Normal conjunctiva. Sclera non-icteric. NECK: Supple. No nuchal rigidity. FROM. No JVD. RESPIRATORY: Clear to auscultation. CARDIAC: Regular rate, normal rhythm. Extremities warm and well perfused. Pulses equal. ABDOMEN: Soft, non-distended. RUQ and epigastric tenderness to palpation. No rebound or guarding. No masses. RECTAL: Deferred. MUSCULOSKELETAL: Chest examination reveals no tenderness. The back is symmetrical on inspection without obvious abnormality. There is no CVA tenderness to palpation. No joint edema. LOWER EXTREMITIES: Calves are equal size bilaterally and non-tender. No edema. No discoloration. NEURO: Normal sensorium. No sensory or motor deficits noted. SKIN: No rash or jaundice noted. Medical Decision & Procedures ER Provider Diagnostic Interpretation: CT: Radiology results as stated below per my review and radiologist interpretation CT SCAN OF THE ABDOMEN AND PELVIS WITHOUT CONTRAST CLINICAL HISTORY: Vomiting, abdominal pain. Acute renal failure COMPARISON STUDY: No previous studies for comparison. TECHNIQUE: CT scan of the abdomen and pelvis was performed from the lung bases to the proximal femurs. Images are reviewed in the axial, sagittal, and coronal planes. IV contrast was not administered for this examination. A dose lowering technique was utilized adhering to the principles of ALARA. CT DOSE: 354.76 mGy.cm FINDINGS: Lower chest: The heart is enlarged. There are bibasal atelectatic changes. Liver: The unenhanced liver is normal in size, contour, and attenuation. There is no intrahepatic biliary ductal dilatation. Gallbladder: Unremarkable. Spleen: The spleen is mildly enlarged measuring 11.5 cm Pancreas: Unremarkable. Adrenal glands: Unremarkable. Kidneys: The right kidney is markedly atrophic. No renal calculi are visualized. There is no hydronephrosis. No ureteral or bladder calculi are visualized. Bowel: There are no transition zones indicate bowel obstruction. There are no findings to indicate acute diverticulitis. There are no findings to indicate acute appendicitis. Peritoneum: There is no intraperitoneal free air or abdominal ascites. Vasculature: There is no aortic aneurysm. There are moderately extensive atheromatous calcifications Adenopathy: There are mildly prominent iliac lymph nodes. There is no pathologic adenopathy by size criteria. Pelvic viscera: There is a 28 mm right adnexal cyst likely ovarian Skeletal structures: There is anterior abdominal wall subcutaneous nodules, possibly secondary to prior injection sites. There is an old superior endplate T12 compression deformity IMPRESSION: 1. No evidence of bowel obstruction. No evidence of free air 2. Atrophic right kidney 3. 28 mm right adnexal cyst likely ovarian 4. No acute inflammatory changes Electronically signed by: Marek Garcia M.D. 04/26/2017 5:17 PM Dictated Date/Time: 04/26/2017 5:12 PM Laboratory Results 04/26/17 16:00 Red Blood Count 3.24, Mean Corpuscular Volume 93.5, Mean Corpuscular Hemoglobin 31.5, Mean Corpuscular Hemoglobin Concent 33.7, Mean Platelet Volume 9.2, Neutrophils (%) (Auto) 68.9, Lymphocytes (%) (Auto) 18.8, Monocytes (%) (Auto) 9.4, Eosinophils (%) (Auto) 2.1, Basophils (%) (Auto) 0.4, Neutrophils # (Auto) 3.53, Lymphocytes # (Auto) 0.96, Monocytes # (Auto) 0.48, Eosinophils # (Auto) 0.11, Basophils # (Auto) 0.02 04/26/17 16:00 Test 04/26/17 16:00 04/26/17 17:30 White Blood Count 5.12 K/uL (4.8-10.8) Red Blood Count 3.24 M/uL (4.2-5.4) Hemoglobin 10.2 g/dL (12.0-16.0) Hematocrit 30.3 % (37-47) Mean Corpuscular Volume 93.5 fL (80-100) Mean Corpuscular Hemoglobin 31.5 pg (25-34) Mean Corpuscular Hemoglobin Concent 33.7 g/dl (32-36) Platelet Count 214 K/uL (130-400) Mean Platelet Volume 9.2 fL (7.4-10.4) Neutrophils (%) (Auto) 68.9 % Lymphocytes (%) (Auto) 18.8 % Monocytes (%) (Auto) 9.4 % Eosinophils (%) (Auto) 2.1 % Basophils (%) (Auto) 0.4 % Neutrophils # (Auto) 3.53 K/uL (1.4-6.5) Lymphocytes # (Auto) 0.96 K/uL (1.2-3.4) Monocytes # (Auto) 0.48 K/uL (0.11-0.59) Eosinophils # (Auto) 0.11 K/uL (0-0.5) Basophils # (Auto) 0.02 K/uL (0-0.2) RDW Standard Deviation 50.2 fL (36.4-46.3) RDW Coefficient of Variation 14.8 % (11.5-14.5) Immature Granulocyte % (Auto) 0.4 % Immature Granulocyte # (Auto) 0.02 K/uL (0.00-0.02) Anion Gap 9.0 mmol/L (3-11) Est Creatinine Clear Calc Drug Dose 15.2 ml/min Estimated GFR () 15.9 Estimated GFR (Non- 13.7 BUN/Creatinine Ratio 10.9 (10-20) Calcium Level 8.7 mg/dl (8.5-10.1) Total Bilirubin 0.5 mg/dl (0.2-1) Direct Bilirubin mg/dl (0-0.2) Aspartate Amino Transf (AST/SGOT) 20 U/L (15-37) Alanine Aminotransferase (ALT/SGPT) 15 U/L (12-78) Alkaline Phosphatase 141 U/L (45-117) Total Protein 7.5 gm/dl (6.4-8.2) Albumin 3.5 gm/dl (3.4-5.0) Lipase 147 U/L (73-393) Chemistry Specimen Hemolysis Urine Color YELLOW Urine Appearance CLEAR (CLEAR) Urine pH 5.0 (4.5-7.5) Urine Specific [place] 1.015 (1.000-1.030) Urine Protein 2+ (NEG) Urine Glucose (UA) NEG (NEG) Urine Ketones NEG (NEG) Urine Occult Blood NEG (NEG) Urine Nitrite NEG (NEG) Urine Bilirubin NEG (NEG) Urine Urobilinogen NEG (NEG) Urine Leukocyte Esterase TRACE (NEG) Urine WBC (Auto) 1-5 /hpf (0-5) Urine RBC (Auto) 0-4 /hpf (0-4) Urine Hyaline Casts (Auto) 1-5 /lpf (0-5) Urine Epithelial Cells (Auto) >30 /lpf (0-5) Urine Bacteria (Auto) NEG (NEG) Urine Yeast (Auto) (NONE PRSENT) Laboratory results reviewed by me Medications Administered Medications (Trade) Dose Ordered Sig/Devin Route Start Time Stop Time Status Last Admin Dose Admin Sodium Chloride 1,000 ml @ 125 mls/hr Q8H STAT IV 04/26/17 16:01 04/27/17 00:00 04/26/17 16:48 125 MLS/HR Sodium Chloride 500 ml @ 999 mls/hr Q31M STAT IV 04/26/17 16:01 04/26/17 16:31 DC 04/26/17 16:01 999 MLS/HR Ondansetron HCl (Zofran Inj) 4 mg NOW STAT IV 04/26/17 16:15 04/26/17 16:16 DC 04/26/17 16:47 4 MG ECG Indication: abdominal pain Rate (beats per minute): 84 Rhythm: normal sinus Findings: T-wave inversion (Lateral), left axis deviation, other (LVH) Change: no significant change (compared to March 22 2017) ED Course 1601: Ordered NSS 500 ml @ 999 mls/hr IV, NSS 1000 ml @ 125 mls/hr IV. 1612: The patient was evaluated in room B7. A complete history and physical exam was performed. 1615: Ordered Zofran Inj 4 mg IV. []: I reevaluated the patient and she is resting. The patient verbally expressed understanding and agreement of the treatment plan. The patient will be evaluated for further treatment. []: I discussed the patient with Dr. Desire TREVINO wad lubricator - he will evaluate the patient for further treatment. Medical Decision Triage Nursing notes reviewed. The patient's presentation and history were concerning for Vomiting and abdominal pain. Etiologies such as gastroenteritis, food borne illness, infections, obstruction , pancreatitis, appendicitis, diverticulitis, inflammatory bowel disease, GI bleed, biliary pathology, toxicologic as well as others were entertained. The patient was evaluated. Clinically she was doing relatively well. She was hydrated. She was given IV Zofran. Blood work was obtained. The patient had an unremarkable CBC but had an elevated creatinine on chemistry panel. Potassium was normal. Her creatinine had bumped from the low twos up to the low threes. This is concerning for acute kidney injury. The patient was reassessed. She was doing better. Urinalysis was obtained and did not reveal any clear evidence of infection. The patient has essentially a solitary left kidney as her right kidney has atrophied almost completely. Because of this she will need treatment in the hospital for hydration to maintain and preserve kidney function as best as possible on the left side. Patient was in agreement. I did discuss this with the hospitalist. The patient was evaluated in the Emergency Room for further management. Medication Reconcilliation Current Medication List: was personally reviewed by me Blood Pressure Screening Patient's blood pressure: Elevated blood pressure Referred to hospitalist. Consults Time Called: 1740 Consulting Physician: Dr. Desire TREVINO wad lubricator Returned Call: [phone] I discussed the patient with Dr. Desire TREVINO wad lubricator - he will evaluate the patient for further treatment. Impression Primary Impression: Vomiting Additional Impression: RALPH (acute kidney injury) Scribe Attestation The scribe's documentation has been prepared under my direction and personally reviewed by me in its entirety. I confirm that the note above accurately reflects all work, treatment, procedures, and medical decision making performed by me. Departure Information Dispostion Being Evaluated By Hospitalist Referrals Enzo Carrington M.D. (PCP) Patient Instructions My [facility] Problem Qualifiers
--- NOTE | 2017-04-26 18:51 | HISTORY & PHYSICAL EXAMINATION ---
DATE OF ADMISSION: 04/26/2017 This is observation H&P, 31 minutes. CHIEF COMPLAINT: Nausea, vomiting and acute on chronic kidney failure. HISTORY OF PRESENT ILLNESS: The patient is a 76-year-old white female with a significant past medical history of hyponatremia, bradycardia, agitation, hypothyroidism; chronic kidney disease, only has one kidney. Depression, anxiety, hypertension, coming to the hospital Emergency Department because of the above chief complaint. The patient reported she has had some breakfast this morning at home and after that she was having abdominal discomfort and has nausea, vomiting as well. She was feeling sick and therefore asked ambulance to coming to the Emergency Room. She is live alone. Per report, she was admitted to the hospital on last month was discharged on April 02 to assisted. The reason for the previous admission was because of hyponatremia. She was treated and then was discharged. For the hyponatremia, sodium was 107. Possible multifactorial such as SIADH, hypothyroidism and possible daily alcohol intake. It was resolved. She was having chronic kidney disease as well. In the previous discharge, creatinine levels were around 2.4-2.7. She has only one kidney. Emergency Room physician reported to me she has the above conditions of nausea and vomiting at home, today 2 episodes of vomiting. She was found dry and hydrated and has acute on chronic kidney failure. When I see the patient, she was awake, alert and orientated, reported symptoms almost resolved, feeling better, the discomfort in the abdomen has gone and no more nausea or vomiting. The patient denied fever, chill, cough, shortness of breath or palpitation. Denied nausea, vomiting, abdominal pain, diarrhea for now. Denied chest pain, palpitation, lower extremity swellings. Denied dysuria, urgency, or frequencies. Denied facial droop, slurry speeches or local weakness. Denied anxiety, depressions or suicidal or homicidal. PAST MEDICAL HISTORY: 1. Like I mentioned in the above include chronic kidney disease stage III/IV. 2. Anemia from chronic kidney failure. 3. Anxiety. 4. Hypertension. 5. Hypothyroidism. 6. Anxiety SOCIAL HISTORY: Never smoked. Denied alcohol abuse disorder, denied illicit drug abuse. The patient lives alone. FAMILY HISTORY: Noncontributory. MEDICATIONS: Taking at home include amlodipine 10 mg p.o. q.a.m., aspirin 81 mg p.o. daily, doxazosin 4 mg p.o. b.i.d., fluticasone which is Advair Diskus 250/50 one puff b.i.d. inhale, folic acid 1 mg p.o. q.a.m., hydralazine 25 mg p.o. t.i.d., levothyroxine 175 mcg p.o. daily, metoprolol 25 mg p.o. q.a.m., Zantac 150 mg p.o. b.i.d., vitamin B1 100 mg p.o. q.a.m., Effexor 75 mg p.o. q.a.m. ALLERGIES: ALLERGIC TO PORK, TETRACYCLINE AND TRAMADOL. PHYSICAL EXAMINATION: VITAL SIGNS: Temperature is 36.9, pulse 91, respiratory rate 20, blood pressure 147/42, pulse ox was 96% in room air. GENERAL: The patient is a white female, awake, alert and orientated, conversational, follows all commands. HEENT: Normocephalic. Pupils equal, round, responds to light. Mucous was mild dry. Sclerae was nonicterus. NECK: Supple. Thyroid no enlargement. Trachea in midline. LUNGS: Decreased breathing sounds. There was no wheezing, rhonchi or crackles. ABDOMEN: Soft, nontender. Bowel sound was positive. RECTAL: Deferred. Bilateral CVA was nontender. Chest wall has no tenderness. Bilateral CVA was nontender. EXTREMITIES: No limited range of more motions in different joints, bilateral lower extremity, no edema. NEUROLOGICAL EVALUATION: Has no deficits. SKIN: Has no rashes. LABORATORY STUDIES: WBC 5.1, hemoglobin 10, platelets 2.4. Sodium 138, potassium 4.7, BUN 34; creatinine 3.1, compared with baseline was 2.4-2.7. Blood glucose 119. Chloride 107, chloride 22. IMAGING STUDIES: In the Emergency Room, the patient got 1/2 liters of IV fluid and Zofran 4 mg IV. EKG in the ED was done, there was T-wave inversions, normal sinus rhythm but there were no significant EKG changes. ASSESSMENT AND PLAN: A 76-year-old white female with the conditions below: 1. Acute on chronic kidney failure stage III. 2. Nausea, vomiting, possible gastroenteritis is improving. 3. History of anemia, which is stable; anemia is from chronic kidney disease. 4. Anxiety, stable. 5. Hypertension, stable. 6. Hypothyroidism, stable. PLAN: We will keep the patient in observation because live alone and with dehydration and has only one kidney, has acute on chronic kidney failure. We will give gentle IV fluid and followup lab tomorrow. Start a diet and advance as tolerated. Followup labs and PT, OT evaluation. For other medical conditions such as hypertension, hypothyroidism, possible GERD and anxiety, we will continue home medication. GI and DVT prophylaxis is covered. The patient is full code. Discussed with patient about the care plan and I answered all the questions. YEMI
[2017-04-26 18:58] VITALS: Ht 157.5 cm; Wt 72.7 kg
[2017-04-26 19:31] VITALS: BP 176/76; PULSE 92; TEMP 36.5; O2SAT 97
[2017-04-26 20:00] VITALS: O2SAT 97
[2017-04-26] MEDS: HEPARIN SOD 5000 UNIT/0.5 ML CARP SQ SCH (21:00)
[2017-04-26] MEDS: SODIUM CHLORIDE 0.9% 1000ML 1,000 ML IV SCH (21:07)
[2017-04-26 21:22] LABS: PARTIAL THROMBOPLASTIN RATIO 1.1; PROTHROMBIN TIME (PATIENT) 10.7 SECONDS (9.0-12.0)
[2017-04-26] MEDS: FLUTICASONE/SALMETEROL 250/50 (ADVAIR) 14 PUFF/1 INHALER INH SCH (21:57)
[2017-04-26] MEDS: RANITIDINE HCL 150 MG TAB PO SCH (21:58)
[2017-04-26 23:08] VITALS: BP 182/78; PULSE 87; TEMP 36.2; O2SAT 96
[2017-04-27] VITALS: O2SAT 97
[2017-04-27] MEDS: SODIUM CHLORIDE 0.9% 1000ML 1,000 ML IV SCH (05:28)
[2017-04-27 05:56] LABS: BASO % 0.3 %; BASO ABS # 0.01 K/uL (0-0.2); COMPLETE YES; EOS % 3.8 %; HEMATOCRIT 28.8 % (37-47); IG% 0.3 %; LYMPH ABS # 0.96 K/uL (1.2-3.4); MEAN CELL VOLUME 94.1 fL (80-100); MEAN CORPUSCULAR HEMOGLOBIN 30.1 pg (25-34); MEAN CORPUSCULAR HGB CONC 31.9 g/dl (32-36); MEAN PLATELET VOLUME 9.1 fL (7.4-10.4); MONO % 11.9 %; NEUT % 57.7 %; PLATELET COUNT 214 K/uL (130-400); RED BLOOD COUNT 3.06 M/uL (4.2-5.4); WHITE BLOOD COUNT 3.69 K/uL (4.8-10.8)
[2017-04-27 06:23] LABS: BUN/CREATININE RATIO 10.6 (10-20); CALCIUM 8.2 mg/dl (8.5-10.1); CREATININE 2.72 mg/dl (0.60-1.20); MAGNESIUM 2.4 mg/dl (1.8-2.4); POTASSIUM 4.3 mmol/L (3.5-5.1)
[2017-04-27] MEDS ORDERED: LEVOTHYROXINE 175 MCG TAB PO SCH (06:30)
[2017-04-27 06:56] VITALS: BP 150/75; PULSE 82; TEMP 36.7; O2SAT 96
[2017-04-27] MEDS ORDERED: ASPIRIN 81 MG ECTAB PO SCH (08:00)
[2017-04-27] MEDS ORDERED: AMLODIPINE BESYLATE 5 MG TAB PO SCH (08:00)
[2017-04-27] MEDS ORDERED: METOPROLOL SUCC 25MG EXT REL TAB PO SCH (08:00)
[2017-04-27] MEDS ORDERED: THIAMINE HCL 100 MG TAB PO SCH (08:00)
[2017-04-27] MEDS ORDERED: VENLAFAXINE HCL XR 75 MG CAPXR PO SCH (08:00)
[2017-04-27] MEDS: FLUTICASONE/SALMETEROL 250/50 (ADVAIR) 14 PUFF/1 INHALER INH SCH (08:28)
[2017-04-27] MEDS: RANITIDINE HCL 150 MG TAB PO SCH (08:31)
[2017-04-27] MEDS: HEPARIN SOD 5000 UNIT/0.5 ML CARP SQ SCH (08:35)
[2017-04-27] MEDS ORDERED: SODIUM CHLORIDE 0.9% 1000ML 1,000 ML IV SCH (09:45)
--- NOTE | 2017-04-27 09:50 | Nephrology Consultation ---
Nephrology Consultation Date & Providers Date of Consultation: Apr 27, 2017. Primary Care Provider: Enzo Carrington M.D. Referring Provider: Reason for Consultation Evaluation of acute kidney injury History of Present Illness Ms. Figueroa is a 76 year old white female who is seen at the request of Dr. Phipps for evaluation of acute on chronic kidney injury. Medical records in the hospital EMR were reviewed this am and are summarized as follows: Ms. Figueroa has stage IV CKD w/ creatinine 2.0 EGFR 23 cc/min. Her real impairment is due to atrophy of the right kidney (5.6 cm by US), diabetic nephropathy and HTN. She has SIADH. Her basline sodium has ranged 134 - 135 mMol / L. Ms. Figueroa's medical history is also significant for anemia, asthma, atrial fibrillation on anticoagulation therapy, PVD w/ carotid stenosis and sHPT. Ms. Figueroa was last admitted to [facility] 03/19/17 - 03/31/17 with gastroenteritis and RALPH. Her creatinine peaked at 2.7 but improved to 2.1 at the time of discharge. She was transferred to [facility] for physical therapy. Ms. Figueroa reports that she returned home just a few days ago. She lives alone. Last night at 3 am she developed upper abdominal pain and recurrent N&V. She was unable to keep down liquids or medications. She became weak, tripped and fell over an area rug. She was brought to the ED and admitted for dehydration and RALPH. Creatinine was 3.1 at the time of admission. Noncontrast abdominal CT was negative for ileus, obstruction or mass. Atrophic R kidney was noted on imaging. Past Medical/Surgical History Medical: # Stage IV CKD # AODM # HTN # SIADH # Anemia # Asthma # Atrial fibrillation # PVD w/ carotid stenosis # sHPT Allergies Coded Allergies: Pork (Unverified Allergy, Unknown, unknown, 04/26/17) Pork Allergy (Unverified Allergy, Unknown, unknown, 04/26/17) Tetracycline (Unverified Allergy, Unknown, unknown(not 100% sure if she's allergic to it), 04/26/17) Tramadol (Verified Adverse Reaction, Unknown, dizzy, emesis, 04/26/17) Inpatient Medications Current Inpatient Medications Medications (Trade) Dose Ordered Sig/Devin Route Start Time Stop Time Status Last Admin Dose Admin Acetaminophen (Tylenol Tab) 650 mg Q4H PRN PO 04/26/17 18:15 05/26/17 18:14 Al Hydrox/Mg Hydrox/Simethicone (Maalox Max Susp) 15 ml Q4H PRN PO 04/26/17 18:15 05/26/17 18:14 Magnesium Hydroxide (Milk Of Magnesia Susp) 30 ml Q6H PRN PO 04/26/17 18:15 05/26/17 18:14 Polyethylene (Miralax Powder Packet) 17 gm DAILY PRN PO 04/26/17 18:15 05/26/17 18:14 Zolpidem Tartrate (Ambien Tab) 5 mg HSZ PRN PO 04/26/17 18:15 05/26/17 18:14 Ondansetron HCl (Zofran Inj) 4 mg Q6H PRN IV 04/26/17 18:15 05/26/17 18:14 Heparin Sodium (Porcine) (Heparin Sq 5000 Unit/0.5ml) 5,000 unit Q12H SQ 04/26/17 21:00 05/26/17 20:59 Amlodipine Besylate (Norvasc Tab) 10 mg QAM PO 04/27/17 08:00 05/27/17 08:59 04/27/17 08:30 10 MG Aspirin (Ecotrin Tab) 81 mg DAILY PO 04/27/17 08:00 05/27/17 08:59 04/27/17 08:29 81 MG Salmeterol Xinafoate/ Fluticasone (Advair Diskus 250/50 Inh) 1 puff BID INH 04/26/17 20:00 05/26/17 20:59 04/27/17 08:28 1 PUFF Folic Acid (Folvite Tab) 1 mg QAM PO 04/27/17 08:00 05/27/17 08:59 04/27/17 08:30 1 MG Hydralazine HCl (Apresoline Tab) 25 mg TID PO 04/26/17 20:00 05/26/17 20:59 04/27/17 08:29 25 MG Levothyroxine Sodium (Synthroid Tab) 175 mcg DAILYBB PO 04/27/17 06:30 05/27/17 06:29 04/27/17 05:28 175 MCG Metoprolol Succinate (Toprol Xl Tab) 25 mg QAM PO 04/27/17 08:00 05/27/17 08:59 04/27/17 08:31 25 MG Ranitidine HCl (zANTac TAB) 150 mg BID PO 04/26/17 20:00 05/26/17 20:59 04/27/17 08:31 150 MG Thiamine HCl (Vitamin B-1 Tab) 100 mg QAM PO 04/27/17 08:00 05/27/17 08:59 04/27/17 08:31 100 MG Venlafaxine HCl (effeXOR EXTENDED REL CAP) 75 mg QAM PO 04/27/17 08:00 05/27/17 08:59 04/27/17 08:30 75 MG Sodium Chloride 1,000 ml @ 80 mls/hr [id number] IV 04/26/17 18:15 05/26/17 18:14 04/27/17 05:28 80 MLS/HR Sodium Chloride 1,000 ml @ 150 mls/hr [id number] IV 04/27/17 09:45 04/27/17 16:24 UNV Family History Diabetes mellitus Negative for CKD / ESRD Social History Smoking Status: Never Smoker Drug Use: none Marital Status: single Housing Status: lives alone Occupation: retired Single. Lives alone. Retired. Never a smoker Review of Systems Constitutional: No fever Respiratory: No cough Cardiovascular: No chest pain Abdomen: No pain, No nausea, No vomiting Genitourinary - Female: No dysuria, No hematuria Integumentary: No rash A complete review of systems was performed. Pertinent positives are noted above. All other systems are negative. Physical Exam Date Time Temp Pulse Resp B/P (MAP) Pulse Ox O2 Delivery O2 Flow Rate FiO2 04/27/17 06:56 36.7 82 18 150/75 (100) 96 Room Air 04/27/17 00:00 97 Room Air 04/26/17 23:08 36.2 87 20 182/78 (112) 96 Room Air 04/26/17 20:00 97 Room Air 04/26/17 19:31 36.5 92 20 176/76 (109) 97 Room Air 04/26/17 19:18 87 165/82 94 Room Air 04/26/17 18:58 Room Air 04/26/17 18:00 88 20 152/87 95 Room Air 04/26/17 16:09 91 04/26/17 15:52 36.9 90 147/42 96 Room Air General Appearance: no apparent distress Head: normocephalic, atraumatic Eyes: PERRL, EOMI ENT: + pertinent finding (dry mucous membranes) Neck: no adenopathy Respiratory/Chest: lungs clear, normal breath sounds Cardiovascular: regular rate, rhythm Abdomen/GI: normal bowel sounds, non tender, soft Extremities/Musculoskelatal: no calf tenderness, no pedal edema, + pertinent finding (poor skin turgor) Neurologic/Psych: alert, oriented x 3 Laboratory Results Last 24 Hours Test 04/26/17 16:00 04/26/17 17:30 04/26/17 20:57 04/27/17 05:25 White Blood Count 5.12 K/uL 3.69 K/uL Red Blood Count 3.24 M/uL 3.06 M/uL Hemoglobin 10.2 g/dL 9.2 g/dL Hematocrit 30.3 % 28.8 % Mean Corpuscular Volume 93.5 fL 94.1 fL Mean Corpuscular Hemoglobin 31.5 pg 30.1 pg Mean Corpuscular Hemoglobin Concent 33.7 g/dl 31.9 g/dl Platelet Count 214 K/uL 214 K/uL Mean Platelet Volume 9.2 fL 9.1 fL Neutrophils (%) (Auto) 68.9 % 57.7 % Lymphocytes (%) (Auto) 18.8 % 26.0 % Monocytes (%) (Auto) 9.4 % 11.9 % Eosinophils (%) (Auto) 2.1 % 3.8 % Basophils (%) (Auto) 0.4 % 0.3 % Neutrophils # (Auto) 3.53 K/uL 2.13 K/uL Lymphocytes # (Auto) 0.96 K/uL 0.96 K/uL Monocytes # (Auto) 0.48 K/uL 0.44 K/uL Eosinophils # (Auto) 0.11 K/uL 0.14 K/uL Basophils # (Auto) 0.02 K/uL 0.01 K/uL RDW Standard Deviation 50.2 fL 50.7 fL RDW Coefficient of Variation 14.8 % 14.9 % Immature Granulocyte % (Auto) 0.4 % 0.3 % Immature Granulocyte # (Auto) 0.02 K/uL 0.01 K/uL Sodium Level 138 mmol/L 142 mmol/L Potassium Level 4.7 mmol/L 4.3 mmol/L Chloride Level 107 mmol/L 111 mmol/L Carbon Dioxide Level 22 mmol/L 21 mmol/L Anion Gap 9.0 mmol/L 10.0 mmol/L Blood Urea Nitrogen 34 mg/dl 29 mg/dl Creatinine 3.16 mg/dl 2.72 mg/dl Est Creatinine Clear Calc Drug Dose 15.2 ml/min 17.6 ml/min Estimated GFR () 15.9 19.0 Estimated GFR (Non- 13.7 16.4 BUN/Creatinine Ratio 10.9 10.6 Random Glucose 119 mg/dl 70 mg/dl Calcium Level 8.7 mg/dl 8.2 mg/dl Total Bilirubin 0.5 mg/dl Direct Bilirubin mg/dl Aspartate Amino Transf (AST/SGOT) 20 U/L Alanine Aminotransferase (ALT/SGPT) 15 U/L Alkaline Phosphatase 141 U/L Total Protein 7.5 gm/dl Albumin 3.5 gm/dl Lipase 147 U/L Chemistry Specimen Hemolysis Urine Color YELLOW Urine Appearance CLEAR Urine pH 5.0 Urine Specific Ransom 1.015 Urine Protein 2+ Urine Glucose (UA) NEG Urine Ketones NEG Urine Occult Blood NEG Urine Nitrite NEG Urine Bilirubin NEG Urine Urobilinogen NEG Urine Leukocyte Esterase TRACE Urine WBC (Auto) 1-5 /hpf Urine RBC (Auto) 0-4 /hpf Urine Hyaline Casts (Auto) 1-5 /lpf Urine Epithelial Cells (Auto) >30 /lpf Urine Bacteria (Auto) NEG Urine Yeast (Auto) Prothrombin Time 10.7 SECONDS Prothromb Time International Ratio 1.0 Activated Partial Thromboplast Time 28.5 SECONDS Partial Thromboplastin Ratio 1.1 Magnesium Level 2.4 mg/dl Impression (1) Acute kidney injury superimposed on chronic kidney disease (2) Chronic kidney disease (CKD) stage G4/A2, severely decreased glomerular filtration rate (GFR) between 15-29 mL/min/1.73 square meter and albuminuria creatinine ratio between 30-299 mg/g (3) Gastroenteritis (4) Dehydration (5) Hypertension (6) Anemia (7) SIADH (syndrome of inappropriate ADH production) Ms. Figueroa was admitted with recurrent emesis resulting in dehydration and RALPH. Abdominal CT without contrast was negative for ileus, mass or inflammatory changes. She is afebrile and has no signs or symptoms or active infection. Urine sediment is acellular. UPCR has not been completed. Patient's right kidney is atrophic and nonfunctional. Patient is clinically dehydrated. Serum creatinine is trending down w/ IV hydration. Baseline creatinine has been 2.0. Recommendations ACUTE KIDNEY INJURY: -- Continue gentle hydration -- Will order repeat PRP at 3 pm today -- Once creatinine ~ 2.0 patient may be discharged from Nephrology perspective -- Patient has follow up Nephrology OV scheduled w/ Dr. Parikh 05/18 . Please ask her to keep this appointment CHRONIC KIDNEY DISEASE: -- Abdominal CT films from 04/26 reviewed: R kidney is atrophic and nonfunctional -- Baseline creatinine has been 2.0 HYPERTENSION: -- Recommend resume outpatient medical regimen of Amlodipine 10 mg po qAM, Cardura 1 mg po qHS and Hydralazine 25 mg po TID ANEMIA: -- Mild and asymptomatic. No active bleeding. Monitor for now. No acute indication for JEIMY SIADH: -- Serum sodium is currently within acceptable range. Will monitor.
--- NOTE | 2017-04-27 10:33 | Discharge Instructions ---
Discharge Instructions Date of Service Apr 27, 2017. Admission Reason for Admission: Acute On Chronic Renal Failure Discharge Discharge Diagnosis / Problem: Weakness, vomiting, acute on chronic renal failure Discharge Goals Goal(s): Decrease discomfort, Improve function, Increase independence, Improve disease control Activity Recommendations Activity Limitations: resume your previous activity Lifting Limitations: no more than 25 pounds Exercise/Sports Limitations: none May Resume Sexual Activity: when tolerated Shower/Bathe: no limitations Driving or Machine Use: Do not drive . Instructions / Follow-Up Instructions / Follow-Up You were admitted to [facility] with weakness, nausea and vomiting and diagnosed with the same due to indigestion. You had a slight increase in Creatinine due to vomiting and dehydration, but this has resolved. During your stay here you were treated with supportive care and seen by nephrology (kidney doctors). Medications: Continue taking all your medications as prescribed. Appointments: Follow up with your Primary Care Provider within 1 week. Current Hospital Diet Patient's current hospital diet: Renal Diet Discharge Diet Recommended Diet: Regular Diet Pending Studies Studies pending at discharge: no Laboratory Results Hemoglobin A1c Test 03/22/17 07:31 Range/Units Estimated Average Glucose 94 mg/dl Hemoglobin A1c 4.9 4.5-5.6 % Medical Emergencies . Who to Call and When: Medical Emergencies: If at any time you feel your situation is an emergency, please call 911 immediately. . Non-Emergent Contact Non-Emergency issues call your: Primary Care Provider Call Non-Emergent contact if: you have a fever, your pain is not controlled, your pain is worsening, you have any medication questions . Past History Medical & Surgical History: (1) Vomiting (2) acute on chronic renal failrue (3) SIADH (syndrome of inappropriate ADH production) (4) Acute kidney injury superimposed on chronic kidney disease (5) Hypertension (6) Hypothyroidism (7) Proteinuria . "Provider Documentation" section prepared by Heather Padilla. . VTE Core Measure Inpt VTE Proph given/why not?: Guy Bergman, SCD's
--- NOTE | 2017-04-27 13:41 | Discharge Summary ---
Discharge Summary Date of Service Apr 27, 2017. Discharge Summary Admission Date: Apr 26, 2017 at 18:14 Discharge Date: Apr 27, 2017 Discharge Disposition: [facility] facility ([facility]) Principal Diagnosis: Nausea, vomiting, RALPH on CKD Problems/Secondary Diagnoses: (1) Anxiety Status: Chronic CKD stage III-IV Hypothyroidism Anemia: secondary to CKD and chronic disease. Depression / Anxiety: HTN: Asthma Hx hyponatremia Hx of Alcohol use disorder Immunizations: Have You Had Influenza Vaccine: Yes History of Tetanus Vaccine?: No History of Pneumococcal: Yes History of Hepatitis B Vaccine: No Procedures: CT SCAN OF THE ABDOMEN AND PELVIS WITHOUT CONTRAST CLINICAL HISTORY: Vomiting, abdominal pain. Acute renal failure COMPARISON STUDY: No previous studies for comparison. TECHNIQUE: CT scan of the abdomen and pelvis was performed from the lung bases to the proximal femurs. Images are reviewed in the axial, sagittal, and coronal planes. IV contrast was not administered for this examination. A dose lowering technique was utilized adhering to the principles of ALARA. CT DOSE: 354.76 mGy.cm FINDINGS: Lower chest: The heart is enlarged. There are bibasal atelectatic changes. Liver: The unenhanced liver is normal in size, contour, and attenuation. There is no intrahepatic biliary ductal dilatation. Gallbladder: Unremarkable. Spleen: The spleen is mildly enlarged measuring 11.5 cm Pancreas: Unremarkable. Adrenal glands: Unremarkable. Kidneys: The right kidney is markedly atrophic. No renal calculi are visualized. There is no hydronephrosis. No ureteral or bladder calculi are visualized. Bowel: There are no transition zones indicate bowel obstruction. There are no findings to indicate acute diverticulitis. There are no findings to indicate acute appendicitis. Peritoneum: There is no intraperitoneal free air or abdominal ascites. Vasculature: There is no aortic aneurysm. There are moderately extensive atheromatous calcifications Adenopathy: There are mildly prominent iliac lymph nodes. There is no pathologic adenopathy by size criteria. Pelvic viscera: There is a 28 mm right adnexal cyst likely ovarian Skeletal structures: There is anterior abdominal wall subcutaneous nodules, possibly secondary to prior injection sites. There is an old superior endplate T12 compression deformity IMPRESSION: 1. No evidence of bowel obstruction. No evidence of free air 2. Atrophic right kidney 3. 28 mm right adnexal cyst likely ovarian 4. No acute inflammatory changes Electronically signed by: Marek Garcia M.D. 04/26/2017 5:17 PM Dictated Date/Time: 04/26/2017 5:12 PM The status of this report is Signed. Medication Reconciliation Continued Medications: Acetaminophen (Mapap) 325 Mg Tab 650 MG PO Q4H PRN for Pain or Fever for 30 Days, #30 TAB Amlodipine Besylate (Amlodipine Besylate) 5 Mg Tab 10 MG PO QAM for 30 Days, #30 TAB Aspirin (Aspirin Ec) 81 Mg Tab 81 MG PO DAILY Doxazosin Mesylate (Doxazosin Mesylate) 4 Mg Tab 4 MG PO BID Fluticasone Prop/Salmeterol (Advair Diskus 250/50 60 Dose) 1 Ea Aerp 1 PUFF INH BID, INHALER Folic Acid (Folic Acid) 1 Mg Tab 1 MG PO QAM for 30 Days, #30 TAB Hydralazine Hcl (Apresoline) 25 Mg Tab 25 MG PO TID, #90 TAB 3 Refills Levothyroxine Sodium (Synthroid) 175 Mcg Tab 175 MCG PO DAILY Metoprolol Succinate (Metoprolol Succinate ER) 25 Mg Tabcr 25 MG PO QAM for 30 Days, #30 TAB Ranitidine (Zantac) 150 Mg Tab 150 MG PO BID, 0 Refills Thiamine HCl (Vitamin B-1) 100 Mg Tab 100 MG PO QAM for 30 Days, #30 TAB Venlafaxine Hcl (Effexor Extended Rel) 75 Mg Capcr 75 MG PO QAM for 30 Days, #30 TAB Discharge Exam The patient was seen and examined this morning. Pt reports doing well today, she has no acute complaints. She reports eating a spicy spaghetti sauce last night and feels this did not sit well with her stomach, therefore became nauseous and vomited. She would like to get out of the hospital if possible today. Review of Systems: Constitutional: No fever, No chills, No sweats, No weight loss, No fatigue Eyes: No redness, No problem reported ENT: No sore throat, No trouble swallowing Respiratory: No cough, No sputum, No wheezing, No shortness of breath, No dyspnea on exertion, No dyspnea at rest Cardiovascular: No chest pain, No orthopnea Abdomen: No pain, No nausea, No vomiting, No diarrhea, No constipation Musculoskeletal: No joint pain, No swelling Genitourinary - Female: No dysuria Neurologic: No paralysis, No weakness, No numbness/tingling Endocrine: No fatigue Integumentary: No rash, No itch Physical Exam: General Appearance: WD/WN, no apparent distress Eyes: PERRL, EOMI ENT: hearing grossly normal, pharynx normal, + pertinent finding (MMM, upper lip lesion appears chronic) Neck: supple, no JVD Respiratory/Chest: chest non-tender, no respiratory distress, no accessory muscle use Cardiovascular: regular rate, rhythm, normal peripheral pulses Abdomen / GI: normal bowel sounds, non tender, soft Extremities: no calf tenderness, no pedal edema Neurologic/Psychiatric: alert, normal mood/affect, oriented x 3 Skin: normal color, warm/dry Hospital Course H&P per Dr. Phipps CHIEF COMPLAINT: Nausea, vomiting and acute on chronic kidney failure. HISTORY OF PRESENT ILLNESS: The patient is a 76-year-old white female with a significant past medical history of hyponatremia, bradycardia, agitation, hypothyroidism; chronic kidney disease, only has one kidney. Depression, anxiety, hypertension, coming to the hospital Emergency Department because of the above chief complaint. The patient reported she has had some breakfast this morning at home and after that she was having abdominal discomfort and has nausea, vomiting as well. She was feeling sick and therefore asked ambulance to coming to the Emergency Room. She is live alone. Per report, she was admitted to the hospital on last month was [facility]. The reason for the previous admission was because of hyponatremia. She was treated and then was discharged. For the hyponatremia, sodium was 107. Possible multifactorial such as SIADH, hypothyroidism and possible daily alcohol intake. It was resolved. She was having chronic kidney disease as well. In the previous discharge, creatinine levels were around 2.4-2.7. She has only one kidney. Emergency Room physician reported to me she has the above conditions of nausea and vomiting at home, today 2 episodes of vomiting. She was found dry and hydrated and has acute on chronic kidney failure. When I see the patient, she was awake, alert and orientated, reported symptoms almost resolved, feeling better, the discomfort in the abdomen has gone and no more nausea or vomiting. The patient denied fever, chill, cough, shortness of breath or palpitation. Denied nausea, vomiting, abdominal pain, diarrhea for now. Denied chest pain, palpitation, lower extremity swellings. Denied dysuria, urgency, or frequencies. Denied facial droop, slurry speeches or local weakness. Denied anxiety, depressions or suicidal or homicidal. PHYSICAL EXAMINATION: VITAL SIGNS: Temperature is 36.9, pulse 91, respiratory rate 20, blood pressure 147/42, pulse ox was 96% in room air. GENERAL: The patient is a white female, awake, alert and orientated, conversational, follows all commands. HEENT: Normocephalic. Pupils equal, round, responds to light. Mucous was mild dry. Sclerae was nonicterus. NECK: Supple. Thyroid no enlargement. Trachea in midline. LUNGS: Decreased breathing sounds. There was no wheezing, rhonchi or crackles. ABDOMEN: Soft, nontender. Bowel sound was positive. RECTAL: Deferred. Bilateral CVA was nontender. Chest wall has no tenderness. Bilateral CVA was nontender. EXTREMITIES: No limited range of more motions in different joints, bilateral lower extremity, no edema. NEUROLOGICAL EVALUATION: Has no deficits. SKIN: Has no rashes. Hospital Course: This is a 76 yo F admitted with nausea, vomiting, and RALPH on CKD from [facility]. CKD stage III-IV - Pt was admitted for observation overnight and nephrology was consulted. Her Cr function was slightly elevated compared to baseline and improved with gently IVF hydration. She was able to tolerate a diet without difficulty prior to discharge. The patient likely had nausea and vomiting secondary to indigestion from spicy foods consumed the evening she was admitted. Vitals remained stable. A urine culture was obtained but was likely contaminated as three different organisms grew out, and pt denied any urinary symptoms. Hypothyroidism - Continue Synthroid 175 mcg Anemia: secondary to CKD and chronic disease. - stable Depression / Anxiety: - 03/24/17: started on venlafaxine ER 75 mg PO q AM - continued - had a crying spell feeling homesick - would recommend physician at [facility] consider increasing this is mood not improving. HTN: Cont hydralazine 25 mg TID, metoprolol succinate 25 mg daily - Held losartan due to rising Cr. Changed to tartrate to metoprolol succinate 25 mg PO daily. - started norvasc 10 mg PO q AM. Asthma: Continue advair Hx hyponatremia - Suspect multifactorial secondary to beer potomania, hypothyroidism, Hx SIADH during last admission in Mar 2017 - resolved Hx of Alcohol use disorder DVT ppx: Teds, scds, ambulatory Code status: full code Disposition: From [facility], dc today Total Time Spent: Greater than 30 minutes This includes examination of the patient, discharge planning, medication reconciliation, and communication with other providers. Discharge Instructions Please refer to the electronic Patient Visit Report (Discharge Instructions) for additional information. Follow-Up Follow up with your Primary Care Provider at [facility] within 24-48 hours upon arrival there.
[2017-04-27 15:27] VITALS: BP 153/69; PULSE 79
[2017-04-27 16:06] LABS: BUN/CREATININE RATIO 11.2 (10-20); CALCIUM 8.3 mg/dl (8.5-10.1); CREATININE 2.68 mg/dl (0.60-1.20); POTASSIUM 4.7 mmol/L (3.5-5.1)
[2017-04-27] MEDS ORDERED: SODIUM CHLORIDE 0.9% 500ML 500 ML IV ONE (16:30)
[2017-04-27] MEDS ORDERED: NURSING VERBAL MED ORDER ONE (17:00)
[2017-04-27 17:45] VITALS: BP 153/69; PULSE 79; TEMP 36.7; O2SAT 96
[2017-04-27 18:13] LABS: BUN/CREATININE RATIO 11.3 (10-20); CALCIUM 8.2 mg/dl (8.5-10.1); CREATININE 2.47 mg/dl (0.60-1.20); POTASSIUM 4.4 mmol/L (3.5-5.1)
== END 2017-04-27 19:17 | disposition home or self-care (01) ==
LOC: EDBD 15:45 → C.EDB 15:46 → C.4E 18:14 → ENRESERV 18:39
PROVIDERS: ADMIT Hospitalist; ATTEND Hospitalist
DX: N17.9 Acute kidney failure, unspecified (principal); R11.2 Nausea with vomiting, unspecified; I12.9 Hypertensive chronic kidney disease with stage 1 through stage 4 chronic kidney disease, or unspecified chronic kidney disease; N18.4 Chronic kidney disease, stage 4 (severe); E03.9 Hypothyroidism, unspecified; D63.1 Anemia in chronic kidney disease; F32.9 Major depressive disorder, single episode, unspecified; I73.9 Peripheral vascular disease, unspecified; I65.29 Occlusion and stenosis of unspecified carotid artery; J45.909 Unspecified asthma, uncomplicated; Z79.82 Long term (current) use of aspirin; Z83.3 Family history of diabetes mellitus

== ENCOUNTER → 2017-05-15 | Outpatient (CLI) | payer OTHER ==
[~2017-05-15] MED LIST changes: -LACT12LO TOP; -SNTO30 EXT
[2017-05-15 18:26] LABS: HEMATOCRIT 31.9 % (37-47); MEAN CELL VOLUME 92.5 fL (80-100); MEAN CORPUSCULAR HEMOGLOBIN 30.1 pg (25-34); MEAN CORPUSCULAR HGB CONC 32.6 g/dl (32-36); MEAN PLATELET VOLUME 10.2 fL (7.4-10.4); PLATELET COUNT 249 K/uL (130-400); RED BLOOD COUNT 3.45 M/uL (4.2-5.4); WHITE BLOOD COUNT 5.18 K/uL (4.8-10.8)
[2017-05-15 19:00] LABS: BLOOD UREA NITROGEN 42 mg/dl (7-18); BUN/CREATININE RATIO 15.8 (10-20); CALCIUM 8.8 mg/dl (8.5-10.1); CARBON DIOXIDE 20 mmol/L (21-32); CHLORIDE 105 mmol/L (98-107); CREATININE 2.68 mg/dl (0.60-1.20); GLUCOSE 79 mg/dl (70-99); PHOSPHORUS 5.1 mg/dl (2.5-4.9); POTASSIUM 4.5 mmol/L (3.5-5.1); SODIUM 135 mmol/L (136-145)
[2017-05-15 19:11] LABS: CHOLESTEROL/HDL RATIO 3.6; THYROID STIMULATING HORMONE 0.024 uIu/ml (0.300-4.500)
== END | disposition home or self-care (01) ==
LOC: C.LAB 17:57
PROVIDERS: ATTEND Internal Medicine Nephrology
DX: N17.9 Acute kidney failure, unspecified (principal); I65.29 Occlusion and stenosis of unspecified carotid artery; D64.9 Anemia, unspecified

== ENCOUNTER 2017-07-12 11:59 | Emergency (ER) | payer OTHER ==
[~2017-07-12] VITALS: Ht 157.5 cm; Wt 74.7 kg
[2017-07-12 12:00] VITALS: TEMP 36.7; Ht 157.5 cm; Wt 74.7 kg
[2017-07-12] MEDS ORDERED: ALPRAZOLAM 0.5 MG TAB PO STA (12:11)
[2017-07-12 12:17] VITALS: O2SAT 98
[2017-07-12] MEDS ORDERED: MECLIZINE HCL 25 MG TAB PO STA (12:26)
[2017-07-12 12:58] LABS: BASO % 0.6 %; BASO ABS # 0.03 K/uL (0-0.2); EOS % 2.9 %; EOS ABS # 0.15 K/uL (0-0.5); HEMATOCRIT 31.3 % (37-47); HEMOGLOBIN 10.3 g/dL (12.0-16.0); IG# 0.01 K/uL (0.00-0.02); LYMPH % 20.7 %; LYMPH ABS # 1.06 K/uL (1.2-3.4); MEAN CELL VOLUME 89.7 fL (80-100); MEAN CORPUSCULAR HEMOGLOBIN 29.5 pg (25-34); MEAN CORPUSCULAR HGB CONC 32.9 g/dl (32-36); MONO % 11.7 %; NEUT % 63.9 %; NEUT ABS # 3.26 K/uL (1.4-6.5); PLATELET COUNT 257 K/uL (130-400); RED CELL DISTRIBUTION WIDTH CV 15.3 % (11.5-14.5); RED CELL DISTRIBUTION WIDTH SD 50.1 fL (36.4-46.3); WHITE BLOOD COUNT 5.11 K/uL (4.8-10.8)
[2017-07-12 13:10] LABS: CALCIUM 8.6 mg/dl (8.5-10.1); CREATININE 2.7 mg/dl (0.60-1.20); POTASSIUM 3.2 mmol/L (3.5-5.1)
--- NOTE | 2017-07-12 13:19 | DIAGNOSTIC IMAGING REPORT ---
CHEST ONE VIEW PORTABLE CLINICAL HISTORY: Chest pain. COMPARISON STUDY: Chest radiograph October 22, 2016. FINDINGS: Lung volumes are normal. There is no pneumothorax or pleural effusion. Mild left lower lung opacity likely reflects atelectasis or artifact. There is stable cardiomegaly without evidence of pulmonary edema. The appearance of the chest is unchanged. IMPRESSION: No acute cardiopulmonary findings. Stable cardiomegaly. Electronically signed by: Lawrence Patricio M.D. 07/12/2017 1:18 PM Dictated Date/Time: 07/12/2017 1:17 PM
[2017-07-12 13:35] LABS: PTT PATIENT 26.6 SECONDS (21.0-31.0)
[2017-07-12] MEDS ORDERED: ALPR0.25 PO (14:03)
[2017-07-12] MEDS ORDERED: CYAN10005 PO (14:26)
[2017-07-12] MEDS ORDERED: FRS/40 PO (14:26)
[2017-07-12] MEDS ORDERED: METO25TA56 PO (14:26)
[2017-07-12 16:41] VITALS: BP 144/62; PULSE 85; O2SAT 97
--- NOTE | 2017-07-12 17:21 | EMERGENCY ROOM VISIT NOTE ---
History Report prepared by Norm: Lindsey Lee Under the Supervision of: Dr. Tab Larsen M.D. First contact with patient: 12:03 Chief Complaint: ILLNESS Stated Complaint: ILLNESS History of Present Illness The patient is a 76 year old female who presents to the Emergency Room with complaints of an episode of chest discomfort last night. Yesterday, she had a sensation of bugs crawling in her chest. This sensation has now resolved. She denies any chest pressure or pain and the sensation did not radiate into her arms or head. She denies any chest heaviness or tightness. She states she just feels very anxious. She did not have any of her anxiety pills yesterday. She did not have any other symptoms. She did not feel SOB, lightheaded, weak, or close to passing out. She thinks that she had an anxiety attack. She called EMS today because she is worried about kidney failure. She has only 1 kidney and lives alone. She currently feels like "a nervous wreck". She would like anxiety medications. She does not want lorazepam as it does not work for her. She denies any vomiting, diarrhea, urinary symptoms, fever, or cough. She has a deformity to her lip from when she fell as a baby. Source of History: patient Onset: last night Position: chest Quality: other (bugs crawling) Timing: other (episodic) Associated Symptoms: No fevers, No cough, No SOB, No vomiting, No diarrhea, No urinary symptoms, No weakness Note: Pt reports feeling anxious. Pt denies lightheadedness. Review of Systems See HPI for pertinent positives & negatives. A total of 10 systems reviewed and were otherwise negative. Past Medical & Surgical Medical Problems: (1) Acute kidney injury superimposed on chronic kidney disease (2) acute on chronic renal failrue (3) Anemia (4) Anemia associated with chronic renal failure (5) Anxiety (6) Chronic kidney disease (CKD) stage G4/A2, severely decreased glomerular filtration rate (GFR) between 15-29 mL/min/1.73 square meter and albuminuria creatinine ratio between 30-299 mg/g (7) Dehydration (8) Gastroenteritis (9) Hypertension (10) Hypertension (11) Hypothyroidism (12) Proteinuria (13) SIADH (syndrome of inappropriate ADH production) Family History Diabetes mellitus Social History Smoking Status: Never Smoker Alcohol Use: none Drug Use: none Marital Status: single Housing Status: lives alone Occupation Status: retired Current/Historical Medications Scheduled Amlodipine Besylate (Amlodipine Besylate), 10 MG PO QAM Aspirin (Aspirin Ec), 81 MG PO DAILY Cyanocobalamin (Vitamin B-12), 1,000 MCG PO DAILY Fluticasone Prop/Salmeterol (Advair Diskus 250/50 60 Dose), 1 PUFF INH BID Folic Acid (Folic Acid), 1 MG PO QAM Furosemide (Lasix), 40 MG PO DAILY Hydralazine Hcl (Apresoline), 25 MG PO TID Levothyroxine Sodium (Synthroid), 175 MCG PO DAILY Metoprolol Tartrate (Lopressor) (Lopressor), 25 MG PO DAILY Venlafaxine Hcl (Effexor Extended Rel), 75 MG PO QAM Scheduled PRN Alprazolam (Xanax), 0.25 MG PO Q12 PRN for Anxiety/Agitation Allergies Coded Allergies: Pork (Unverified Allergy, Unknown, unknown, 07/12/17) Pork Allergy (Unverified Allergy, Unknown, unknown, 07/12/17) Tetracycline (Unverified Allergy, Unknown, unknown(not 100% sure if she's allergic to it), 07/12/17) Tramadol (Verified Adverse Reaction, Unknown, dizzy, emesis, 07/12/17) Physical Exam Vital Signs Date Time Temp Pulse Resp B/P (MAP) Pulse Ox O2 Delivery O2 Flow Rate FiO2 07/12/17 16:41 85 18 144/62 97 07/12/17 14:17 76 17 167/75 96 Room Air 07/12/17 13:00 60 26 144/66 97 Room Air 07/12/17 12:48 86 24 176/90 100 Room Air 07/12/17 12:17 98 Room Air 07/12/17 12:10 93 07/12/17 12:00 36.7 96 18 168/82 98 Room Air Physical Exam Constitutional: Vital signs reviewed. Eyes: Pupils are equal round reactive to light. Conjunctiva are noninjected. ENT: Chronic deformity to the upper lip. Pharynx is clear without erythema or exudate. Mucous membranes are moist. Neck supple without meningeal signs. Respiratory: Clear to auscultation bilaterally. Breath sounds are equal bilaterally. Cardiovascular: Regular rate and rhythm. No rubs or gallops. GI: Soft, nondistended and nontender. Bowel sounds are present. Musculoskeletal: No peripheral edema. No lower extremity tenderness. Integumentary: No cyanosis. Neurological: The patient is awake and alert. No focal deficits. Psychiatric: Very anxious. Medical Decision & Procedures ER Provider Diagnostic Interpretation: X-ray results as stated below per interpretation by me and the radiologist: CHEST ONE VIEW PORTABLE CLINICAL HISTORY: Chest pain. COMPARISON STUDY: Chest radiograph October 22, 2016. FINDINGS: Lung volumes are normal. There is no pneumothorax or pleural effusion. Mild left lower lung opacity likely reflects atelectasis or artifact. There is stable cardiomegaly without evidence of pulmonary edema. The appearance of the chest is unchanged. IMPRESSION: No acute cardiopulmonary findings. Stable cardiomegaly. Electronically signed by: Lawrence Patricio M.D. 07/12/2017 1:18 PM Dictated Date/Time: 07/12/2017 1:17 PM Laboratory Results 07/12/17 12:39 Red Blood Count 3.49, Mean Corpuscular Volume 89.7, Mean Corpuscular Hemoglobin 29.5, Mean Corpuscular Hemoglobin Concent 32.9, Mean Platelet Volume 10.0, Neutrophils (%) (Auto) 63.9, Lymphocytes (%) (Auto) 20.7, Monocytes (%) (Auto) 11.7, Eosinophils (%) (Auto) 2.9, Basophils (%) (Auto) 0.6, Neutrophils # (Auto ) 3.26, Lymphocytes # (Auto) 1.06, Monocytes # (Auto) 0.60, Eosinophils # (Auto ) 0.15, Basophils # (Auto) 0.03 07/12/17 12:39 Test 07/12/17 12:39 07/12/17 13:18 White Blood Count 5.11 K/uL (4.8-10.8) Red Blood Count 3.49 M/uL (4.2-5.4) Hemoglobin 10.3 g/dL (12.0-16.0) Hematocrit 31.3 % (37-47) Mean Corpuscular Volume 89.7 fL (80-100) Mean Corpuscular Hemoglobin 29.5 pg (25-34) Mean Corpuscular Hemoglobin Concent 32.9 g/dl (32-36) Platelet Count 257 K/uL (130-400) Mean Platelet Volume 10.0 fL (7.4-10.4) Neutrophils (%) (Auto) 63.9 % Lymphocytes (%) (Auto) 20.7 % Monocytes (%) (Auto) 11.7 % Eosinophils (%) (Auto) 2.9 % Basophils (%) (Auto) 0.6 % Neutrophils # (Auto) 3.26 K/uL (1.4-6.5) Lymphocytes # (Auto) 1.06 K/uL (1.2-3.4) Monocytes # (Auto) 0.60 K/uL (0.11-0.59) Eosinophils # (Auto) 0.15 K/uL (0-0.5) Basophils # (Auto) 0.03 K/uL (0-0.2) RDW Standard Deviation 50.1 fL (36.4-46.3) RDW Coefficient of Variation 15.3 % (11.5-14.5) Immature Granulocyte % (Auto) 0.2 % Immature Granulocyte # (Auto) 0.01 K/uL (0.00-0.02) Anion Gap 9.0 mmol/L (3-11) Est Creatinine Clear Calc Drug Dose 17.0 ml/min Estimated GFR () 19.2 Estimated GFR (Non- 16.6 BUN/Creatinine Ratio 20.1 (10-20) Calcium Level 8.6 mg/dl (8.5-10.1) Prothrombin Time 10.4 SECONDS (9.0-12.0) Prothromb Time International Ratio 1.0 (0.9-1.1) Activated Partial Thromboplast Time 26.6 SECONDS (21.0-31.0) Partial Thromboplastin Ratio 1.0 Troponin: 0.02 Laboratory results as reviewed by me. Medications Administered Medications (Trade) Dose Ordered Sig/Devin Route Start Time Stop Time Status Last Admin Dose Admin Alprazolam (Xanax Tab) 0.25 mg NOW STAT PO 07/12/17 12:11 07/12/17 12:13 DC 07/12/17 12:25 0.25 MG ECG Indication: chest pain Rate (beats per minute): 83 Rhythm: sinus rhythm Findings: LAFB, PAC, T-wave inversion (1 and avL) Comparison ECG Date: 26-Apr-2017 Change: no significant change ED Course 1205: The patient was evaluated in room C11B. A complete history and physical exam was performed. 1211: Xanax Tab 0.25 mg PO. 1358: I reevaluated the patient. She feels much better and would like a prescription for the same medication to go home with. I gave her precautions regarding this medication. I discussed the test results with her. She verbalized agreement of the treatment plan. She was discharged home. 1640: The patient's son has arrived to the ED. He reports that the patient has a history of abusing Ativan and had to take it away from her before . She has not had any since then. I offered to cancel the prescription and he says she might be worse. He will picker tender helper the prescription himself and administer it safely. Medical Decision This is a 76-year-old female presents with chest discomfort. Differential diagnosis includes anxiety, panic attack, AL, GERD, pleurisy. I did perform a limited focused review of portions of the patient's old chart on the electronic medical record. The patient was admitted for vomiting and acute kidney injury in April. I did evaluate the patient as noted above. The patient is presenting with very atypical chest discomfort since yesterday. She states she feels like bugs are crawling around in her chest and she is very anxious. She has no symptoms consistent with acute coronary syndrome. She denies any weakness or lightheadedness. She does state that she cannot take Ativan as it does not help her and makes her feel worse. IV access was established. The patient was placed on a continuous monitor worker. I did treat her with Xanax. I did order and personally review the patient's 12-lead EKG and chest x-ray as described above. I did order and review the patient's blood work as noted in the electronic medical record. Troponin is negative. Her creatinine is at baseline. She does have mild hypokalemia. She also has some anemia. I did reassess patient. She states her symptoms are completely resolved. She feels much better and wished to be discharged home. I did give her a short prescription for Xanax. I did look her up on the PDMP. She did have a 30 day prescription for Ativan prescribed June 19 but she told me that she does not take this because it does not make her feel well. I had no recent to suspect drug-seeking behavior and so I did send her prescription to her pharmacy. Later when her son came to pick her up he pulled me aside and stated that he was concerned as patient had a prior history of taking her Ativan 2 frequently and with alcohol. He states that they took away her Ativan before [place] and she has not had any since. I did offer to cancel the prescription but the patient states that it would make matters worse if I did so and stated that he would get the prescription himself and give it to her himself rather than letting her take it. The patient was discharged in good condition. [place] Drug Monitoring Program Search Results: patient reviewed within database Drug Monitoring Findings: Patient had a 30 day prescription for lorazepam on June 19. Medication Reconcilliation Current Medication List: was personally reviewed by me Blood Pressure Screening Patient's blood pressure: Elevated blood pressure Blood pressure disposition: Referred to PCP Impression Primary Impression: Atypical chest pain Additional Impressions: Anxiety Hypokalemia CKD (chronic kidney disease) Anemia Scribe Attestation The scribe's documentation has been prepared under my direct and personally reviewed by me in its entirety. I confirm that the note above accurately reflects all work, treatment, procedures, and medical decision making performed by me. Departure Information Dispostion Home / Self-Care Prescriptions Alprazolam (XANAX) 0.25 Mg Tab 0.25 MG PO Q12 Y for Anxiety/Agitation, #10 TABS Prov: Tab Larsen M.D. 07/12/17 Referrals Enzo Carrington M.D. (PCP) Forms HOME CARE DOCUMENTATION FORM, IMPORTANT VISIT INFORMATION, WORK / SCHOOL INSTRUCTIONS Patient Instructions Anxiety Body Response, ED Chest Pain Atypical Unkn Cause, My [facility] Additional Instructions You have been examined and treated today on an emergency basis only. This is not a substitute for, or an effort to provide, complete comprehensive medical care. It is impossible to recognize and treat all injuries or illnesses in a single emergency department visit. It is therefore important that you follow up closely with your physician. Call as soon as possible for an appointment. Return for worsening symptoms or if you develop fever, vomiting, difficulty breathing, lightheadedness, profuse sweating or any other concerning symptoms. Do not take lorazepam with Xanax. Problem Qualifiers Additional Impressions: CKD (chronic kidney disease) Chronic kidney disease stage: unspecified stage Qualified Codes: N18.9 - Chronic kidney disease, unspecified Anemia Anemia type: unspecified type Qualified Codes: D64.9 - Anemia, unspecified
== END 2017-07-12 16:40 | disposition home or self-care (01) ==
LOC: EDBD 11:59 → C.EDC 12:02
DX: F41.9 Anxiety disorder, unspecified (principal); E87.6 Hypokalemia; N18.4 Chronic kidney disease, stage 4 (severe); D63.1 Anemia in chronic kidney disease; I12.9 Hypertensive chronic kidney disease with stage 1 through stage 4 chronic kidney disease, or unspecified chronic kidney disease; R94.4 Abnormal results of kidney function studies; E03.9 Hypothyroidism, unspecified; Z79.82 Long term (current) use of aspirin

== ENCOUNTER 2019-02-13 14:06 | Inpatient (IN) ==
[2019-02-13 14:53] LABS: Hematocrit (blood only) 34.6 % (37-47); Hemoglobin 11.6 g/dL (12.0-16.0); Mean Corpuscular Hgb Conc 33.5 g/dL (32-36); Mean Corpuscular Volume 89.9 fL (80-100); Mean Platelet Volume 10.6 fL (7.4-10.4); Platelet Count 335 K/uL (130-400); RDW Coefficient of Variation 14.9 % (11.5-14.5); Red Blood Count 3.85 M/uL (4.2-5.4); White Blood Count 6.73 K/uL (4.8-10.8)
[2019-02-13 15:18] LABS: Albumin Level 3.8 gm/dl (3.4-5.0); BUN Creatinine Ratio 16.2 (10-20); Bilirubin,Total 1.3 mg/dl (0.2-1); Calcium 8.7 mg/dl (8.5-10.1); Creatinine Clr Calc Pharmacy 10.8 ml/min; Est GFR (Non-African American) 10.3; Globulin 3.8 gm/dl (2.5-4.0); Total Protein 7.6 gm/dl (6.4-8.2)
[2019-02-13 15:23] LABS: Troponin I 0.083 ng/ml (0-0.045)
[2019-02-13] MEDS ORDERED: dilTIAZem HCl 5 MG/ML 5 ML VIAL IV STA (15:28)
[2019-02-13 15:57] LABS: INR 1.3 (0.9-1.1); Partial Thromboplastin Ratio 1.1; Prothrombin Time 13.1 Seconds (9.0-12.0)
[2019-02-13 15:59] LABS: Magnesium 2.7 mg/dl (1.8-2.4)
--- NOTE | 2019-02-13 17:31 | History & Physical Report ---
Date of Service February 13, 2019 Assessment & Plan (1) Melena: H&H is 11.6/34.6 which is better than August 2017 and it was 10.2/30.9. Admit to PCU on telemetry -CT abdomen pelvis without contrast pending -Vital signs every 4 hours -CBC every 12 hours -Check electrolytes daily -Troponin every 6 hours accompanied with EKG and trend down -N.p.o. -Type and screen -Chest x-ray pending -Fecal occult blood pending -Guaiac negative -Continue ranitidine 150 mg twice daily -Consult to GI in the morning if H&H is dropping and stool positive for blood. -Hold onto for coagulation for A. fib's and DVT since patient reported melena and is anemic acute versus chronically. -Full code Present on Admission?: Yes (2) Atrial fibrillation with RVR: Patient has A. fib with RVR which appears to be paroxysmal and not present in the cardiology report from 2017. Since patient reported melena and has severe anemia with full we will hold on anticoagulation at this time. Continue beta-blockers metoprolol 25 mg daily. Present on Admission?: Yes (3) RALPH (acute kidney injury): Appears to be acute to chronic kidney injury. -Creatinine in August was 2.52 now it is increased to 3.39 with GFR of 10.8. It is not clear which. It is not clear in which of time patient became CKD stage V, or this is something that has been ongoing for the past several days. BUN is elevated to 64. -Consult nephrology -Patient could be candidate for hemodialysis at this time. (4) Elevated troponin: Troponin elevated to 0.0 83. Patient reports no chest pain. EKG is significant for paroxysmal A. fib with RVR. -Troponin is probably elevated due to acute versus chronic kidney failure stage V. -Patient is not a candidate for anticoagulation since she reported to have melena. -Patient already took aspirin this morning on her own before arriving to the hospital. -Troponin every 6 hours with EKG trend down. -TTE pending -Consulted cardiology. Present on Admission?: Yes (5) Anemia associated with chronic renal failure: Ordered iron studies. Patient has anemia of chronic disease for longer period of time. Possibly she has acute anemia due to GI bleeding-as discussed above. Present on Admission?: Yes (6) Diabetes mellitus with neuropathy: Accu-Cheks before meals and at bedtime. A1c pending ADA carbohydrate controlled diet Present on Admission?: Yes (7) Hypertension: Stable continue amlodipine 10 mg p.o. every morning. Hold aspirin 81 mg every morning for now because of melena. Present on Admission?: Yes (8) Hypothyroidism: Stable continue levothyroxine 150 MCG's p.o. every morning. Present on Admission?: Yes (9) SIADH (syndrome of inappropriate ADH production): No medication indicated no medication indicated at this time. -Continue controlling sodium daily. -Nephrology consulted for electrolyte disbalance. Present on Admission?: Yes (10) Psoriasis: Stable at this time. Continue home medicine-mupirocin 2% topical ointment vitamin D2 and D3. Present on Admission?: Yes History of Present Illness Chief Complaint: Melena Primary Care Provider: Enzo Carrington MD Patient is a 78 years old female with significant past medical history for hypertension, hyperlipidemia, hypothyroidism, chronic anemia, CKD stage V, diabetes mellitus type 2 with neuropathy, psoriasis. Presents to the emergency room with a complaint of black stool that she noted this morning. Patient states that she used Pepto-Bismol approximately 7 days ago and had a normal stool so far except for today. Patient reports that her stool was clearly black and there was a large amount of it. Patient denies dizziness ,fever,chills,headache, chest pain, shortness of breath, abdominal pain, frequency, urgency, hemoptysis, hematemesis or hematochezia. Labs reviewed significant for H&H of 11.6/34.6 (in August 2017 patient's H&H was 10.2/30.9) R DVT of 48 MCV of 89.9 MCH of 30.1 MCHC 33.5, INR of 1.3, PT 13.1, sodium 132 potassium 4, chloride 97, anion gap 17.0, BUN 64, creatinine 3.95, GFR 10.8, AST 46,ALT 40, alkaline phosphatase 119, troponin 0 0.083. Chest x-rays pending. EKG atrial fibrillation with premature ventricular complexes, T wave inversion. No ST segment elevation or depression in 2 consecutive leads. Patient reports she never had A. fib before. Chart review shows that patient was seen by Dr.Jason Meadows in 2017 and at that point he evaluated patient for first-degree AV block and Wenckebach physiology without obvious second-degree AV block. He recommended to follow-up patient closely for hypothyroidism chronic severe hyponatremia, alcohol abuse, hypertension and hypokalemia. At that time he did not recommend a pacemaker because there was no high degree AV block.The case was discussed and patient is admitted to telemetry Allergies Allergy/AdvReac Type Severity Reaction Status Date / Time doxycycline Allergy Unknown Unknown Unverified 02/13/19 15:01 labetalol Allergy Unknown Unknown Unverified 02/13/19 15:01 lorazepam Allergy Unknown Unknown Unverified 02/13/19 15:01 Pork/Porcine Containing Allergy Unknown unknown Unverified 02/13/19 15:01 Products tetracycline Allergy Unknown unknown(not Unverified 02/13/19 15:01 100% sure if she's allergic to it) tramadol AdvReac Unknown dizzy, Verified 02/13/19 15:01 emesis Home Medications Home Medications Medication Instructions Recorded Confirmed Type mupirocin 2 % topical ointment 1 appln TOP BID #15 gm 01/26/19 02/13/19 Rx ergocalciferol (vitamin D2) 50,000 50,000 units PO WEEKLY #4 cap 01/28/19 02/13/19 Rx unit capsule fluticasone 250 mcg-salmeterol 50 1 puffs INH Q12H #60 ea 01/28/19 02/13/19 Rx mcg/dose blistr powdr for inhalation hydralazine 25 mg tablet 25 mg PO TID #90 tab 01/28/19 02/13/19 Rx ranitidine 150 mg capsule 150 mg PO BID #60 cap 01/28/19 02/13/19 Rx amlodipine 10 mg PO QAM 02/13/19 02/13/19 History aspirin 81 mg PO QAM 02/13/19 02/13/19 History cholecalciferol (vitamin D3) 400 units PO QAM 02/13/19 02/13/19 History folic acid 1 mg PO QAM 02/13/19 02/13/19 History furosemide 40 mg PO QAM 02/13/19 02/13/19 History levothyroxine 150 mcg PO QAM 02/13/19 02/13/19 History metoprolol tartrate 25 mg PO QAM 02/13/19 02/13/19 History venlafaxine 75 mg PO QAM 02/13/19 02/13/19 History vitamin B complex [B 1 tab PO QAM 02/13/19 02/13/19 History Complex-Vitamin B12] Past Med/Surg History Medical History Psoriasis Diabetes mellitus with neuropathy (Chronic) Hypertension (Chronic) Hypothyroidism (Chronic) Proteinuria Anemia Anemia associated with chronic renal failure Acute kidney injury superimposed on chronic kidney disease Chronic kidney disease (CKD) stage G4/A2, severely decreased glomerular filtration rate (GFR) between 15-29 mL/min/1.73 square meter and albuminuria creatinine ratio between 30-299 mg/g Dehydration Gastroenteritis Hypertension SIADH (syndrome of inappropriate ADH production) Social History Preferred Language: Estonian Beliefs That Will Affect Care: Episcopalian Episcopalian Beliefs: sabianism Current Living Situation: Alone Other Information That Helps Us Care for You: No Feels Safe at Home: Yes Safety Concerns: Feels Safe At This Time Smoking Status: Never smoker Hx Alcohol Use: Yes Hx Substance Use: No Review of Systems Review of Systems: All systems reviewed & are unremarkable except as noted in HPI & below Gastrointestinal: + melena Of Per history patient has melena which she witnessed today at home. Guaiac test was negative in the ER. Physical Exam Constitutional: WD/WN, vitals as above well developed and + frail appearing Eyes: PERRL, conjunctivae normal, anicteric sclerae EOMI ENMT: external ear and nose normal, oropharynx normal Neck: trachea midline, no thyromegaly Respiratory: normal respiratory effort, lungs clear to auscultation Cardiovascular: Rate/Rhythm: + irregularly irregular Chest (Breasts): normal inspection/palpation of breasts Gastrointestinal (Abdomen): normal bowel sounds, soft, nontender, no hepatosplenomegaly Musculoskeletal: no cyanosis or clubbing, extremities motor strength 5/5 Skin: no rashes, warm and dry Neurologic: patellar DTR's 2+ bilat, sensation intact Psychiatric: A+Ox3, euthymic affect Lymphatic: no cervical or axillary lymphadenopathy Results & Data Vital Signs (Past 12 Hours) Vital Signs Temp Pulse Resp BP BP BP Pulse Ox 02/13/19 16:02 145/95 H 02/13/19 15:57 150/110 H 02/13/19 15:51 82 23 193/117 H 94 02/13/19 15:50 104 H 21 168/104 H 93 02/13/19 15:45 94 H 21 93/87 L 94 02/13/19 15:40 76 21 95 02/13/19 15:33 104 H 23 120/97 95 02/13/19 15:30 110 H 22 93 02/13/19 15:20 92 H 22 93 02/13/19 15:10 99 H 22 95 02/13/19 15:00 115 H 22 96 02/13/19 14:50 120 H 24 96 02/13/19 14:48 124 H 16 93 02/13/19 14:40 113 H 13 02/13/19 14:30 110 H 24 02/13/19 14:20 153 H 27 H 02/13/19 14:16 36.3 C L 117 H 17 171/123 H 97 02/13/19 14:15 115 H 15 97 02/13/19 14:13 123 H 22 171/123 H 96 02/13/19 14:00 92 H 23 141/83 H 99 Code Status & VTE Plan Code Status Full code PG Care Time/CCT Total # of Minutes Spent Total Time Spent with Patient: Total time spent is greater than 50% in coordination of care (as documented) at patient's floor/unit and/or counseling patient:
--- NOTE | 2019-02-13 18:12 | Emergency Department Note ---
Entered by Dariela Vásquez acting as a scribe for History of Present Illness General Chief complaint: GI Assessment Stated complaint: black stool History of Present Illness Provider complaint: black stool Onset (ago): day(s) 1 Location: genitals Maximum Pain Intensity: 0 Current Pain Intensity: 0 Quality: + other (bloody stool) Associated symptoms: + other (negative abdominal pain; negative tachycardia); no chest pain and no shortness of breath The patient, who is a 78 year old female with a medical history of psoriasis, hypertension and anemia, presents to the Emergency Room with complaints of black stool that started yesterday. The patient states that she feels great otherwise and denies any generalized pain. The patient denies abdominal pain, chest pain or shortness of breath. She denies any palpitations. The patient denies the use of iron supplements or blood thinners. The patient denies that she feels her heart racing. The patient states she took a teaspoon of Pepto Bismol last week. The patient expresses that years ago she had rectal bleeding. She states this was an issue with her B12 level. Home Medications Home Medications Medication Instructions Recorded Confirmed Type mupirocin 2 % topical ointment 1 appln TOP BID #15 gm 01/26/19 02/13/19 Rx ergocalciferol (vitamin D2) 50,000 50,000 units PO WEEKLY #4 cap 01/28/19 0 02/13/19 Rx unit capsule fluticasone 250 mcg-salmeterol 50 1 puffs INH Q12H #60 ea 01/28/19 02/13/19 Rx mcg/dose blistr powdr for inhalation hydralazine 25 mg tablet 25 mg PO TID #90 tab 01/28/19 02/13/19 Rx ranitidine 150 mg capsule 150 mg PO BID #60 cap 01/28/19 02/13/19 Rx amlodipine 10 mg PO QAM 02/13/19 02/13/19 History aspirin 81 mg PO QAM 02/13/19 02/13/19 History cholecalciferol (vitamin D3) 400 units PO QAM 02/13/19 02/13/19 History folic acid 1 mg PO QAM 02/13/19 02/13/19 History furosemide 40 mg PO QAM 02/13/19 02/13/19 History levothyroxine 150 mcg PO QAM 02/13/19 02/13/19 History metoprolol tartrate 25 mg PO QAM 02/13/19 02/13/19 History venlafaxine 75 mg PO QAM 02/13/19 02/13/19 History vitamin B complex [B 1 tab PO QAM 02/13/19 02/13/19 History Complex-Vitamin B12] Allergies Allergy/AdvReac Type Severity Reaction Status Date / Time doxycycline Allergy Unknown Unknown Unverified 02/13/19 15:01 labetalol Allergy Unknown Unknown Unverified 02/13/19 15:01 lorazepam Allergy Unknown Unknown Unverified 02/13/19 15:01 Pork/Porcine Containing Allergy Unknown unknown Unverified 02/13/19 15:01 Products tetracycline Allergy Unknown unknown(not Unverified 02/13/19 15:01 100% sure if she's allergic to it) tramadol AdvReac Unknown dizzy, Verified 02/13/19 15:01 emesis Past Med/Surg History Medical History Psoriasis Diabetes mellitus with neuropathy (Chronic) Hypertension (Chronic) Hypothyroidism (Chronic) Proteinuria Anemia Anemia associated with chronic renal failure Acute kidney injury superimposed on chronic kidney disease Chronic kidney disease (CKD) stage G4/A2, severely decreased glomerular filtration rate (GFR) between 15-29 mL/min/1.73 square meter and albuminuria creatinine ratio between 30-299 mg/g Dehydration Gastroenteritis Hypertension SIADH (syndrome of inappropriate ADH production) Social History Preferred Language: Bahraini Feels Safe at Home: Yes Smoking Status: Never smoker Review of Systems See HPI for pertinent positives & negatives. and A total of 10 systems reviewed and were otherwise negative Physical Exam Vital Signs Vital Signs - 24 hr 02/13/19 14:00 02/13/19 14:13 02/13/19 14:15 Temperature Temperature Source Sepsis Recent Fever Within 48 Hours Sepsis New/Unexplained Change in Mental Status Sepsis Action Taken by Nursing Pulse Rate 92 H 123 H 115 H Pulse Rate [Apical] Pulse Rate from SpO2 Sensor 86 131 H 121 H Pulse Rhythm Pulse Rhythm [Apical] Respiratory Rate 23 22 15 Respiratory Effort / Characteristics Respiratory Depth Respiratory Pattern Blood Pressure 141/83 H 171/123 H Blood Pressure [Left Arm] Blood Pressure [Right Arm] Blood Pressure Mean 102 139 Blood Pressure Mean [Left Arm] Blood Pressure Mean [Right Arm] Blood Pressure Position [Left Arm] Pulse Oximetry 99 96 97 Oxygen Delivery Method 02/13/19 14:16 02/13/19 14:20 02/13/19 14:30 Temperature 36.3 C L Temperature Source Oral Sepsis Recent Fever Within 48 Hours No Sepsis New/Unexplained Change in Mental Status No Sepsis Action Taken by Nursing No Action Required Pulse Rate 117 H 153 H 110 H Pulse Rate [Apical] Pulse Rate from SpO2 Sensor Pulse Rhythm Irregular Pulse Rhythm [Apical] Respiratory Rate 17 27 H 24 Respiratory Effort / Characteristics Non-Labored Spontaneous Respiratory Depth Normal Respiratory Pattern Regular Blood Pressure 171/123 H Blood Pressure [Left Arm] Blood Pressure [Right Arm] Blood Pressure Mean 139 Blood Pressure Mean [Left Arm] Blood Pressure Mean [Right Arm] Blood Pressure Position [Left Arm] Pulse Oximetry 97 Oxygen Delivery Method Room Air 02/13/19 14:40 02/13/19 14:48 02/13/19 14:50 Temperature Temperature Source Sepsis Recent Fever Within 48 Hours Sepsis New/Unexplained Change in Mental Status Sepsis Action Taken by Nursing Pulse Rate 113 H 124 H 120 H Pulse Rate [Apical] Pulse Rate from SpO2 Sensor 120 H Pulse Rhythm Irregular Pulse Rhythm [Apical] Respiratory Rate 13 16 24 Respiratory Effort / Characteristics Respiratory Depth Respiratory Pattern Blood Pressure Blood Pressure [Left Arm] Blood Pressure [Right Arm] Blood Pressure Mean Blood Pressure Mean [Left Arm] Blood Pressure Mean [Right Arm] Blood Pressure Position [Left Arm] Pulse Oximetry 93 96 Oxygen Delivery Method Room Air 02/13/19 15:00 02/13/19 15:10 02/13/19 15:20 Temperature Temperature Source Sepsis Recent Fever Within 48 Hours Sepsis New/Unexplained Change in Mental Status Sepsis Action Taken by Nursing Pulse Rate 115 H 99 H 92 H Pulse Rate [Apical] Pulse Rate from SpO2 Sensor 118 H 108 H 107 H Pulse Rhythm Pulse Rhythm [Apical] Respiratory Rate 22 22 22 Respiratory Effort / Characteristics Respiratory Depth Respiratory Pattern Blood Pressure Blood Pressure [Left Arm] Blood Pressure [Right Arm] Blood Pressure Mean Blood Pressure Mean [Left Arm] Blood Pressure Mean [Right Arm] Blood Pressure Position [Left Arm] Pulse Oximetry 96 95 93 Oxygen Delivery Method 02/13/19 15:30 02/13/19 15:33 02/13/19 15:40 Temperature Temperature Source Sepsis Recent Fever Within 48 Hours Sepsis New/Unexplained Change in Mental Status Sepsis Action Taken by Nursing Pulse Rate 110 H 104 H 76 Pulse Rate [Apical] Pulse Rate from SpO2 Sensor 123 H 112 H 87 Pulse Rhythm Pulse Rhythm [Apical] Respiratory Rate 22 23 21 Respiratory Effort / Characteristics Respiratory Depth Respiratory Pattern Blood Pressure 120/97 Blood Pressure [Left Arm] Blood Pressure [Right Arm] Blood Pressure Mean 104 Blood Pressure Mean [Left Arm] Blood Pressure Mean [Right Arm] Blood Pressure Position [Left Arm] Pulse Oximetry 93 95 95 Oxygen Delivery Method 02/13/19 15:45 02/13/19 15:50 02/13/19 15:51 Temperature Temperature Source Sepsis Recent Fever Within 48 Hours Sepsis New/Unexplained Change in Mental Status Sepsis Action Taken by Nursing Pulse Rate 94 H 104 H 82 Pulse Rate [Apical] Pulse Rate from SpO2 Sensor 88 98 H 90 Pulse Rhythm Pulse Rhythm [Apical] Respiratory Rate 21 21 23 Respiratory Effort / Characteristics Respiratory Depth Respiratory Pattern Blood Pressure 93/87 L 168/104 H 193/117 H Blood Pressure [Left Arm] Blood Pressure [Right Arm] Blood Pressure Mean 89 125 142 Blood Pressure Mean [Left Arm] Blood Pressure Mean [Right Arm] Blood Pressure Position [Left Arm] Pulse Oximetry 94 93 94 Oxygen Delivery Method 02/13/19 15:57 02/13/19 16:02 02/13/19 17:53 Temperature Temperature Source Sepsis Recent Fever Within 48 Hours Sepsis New/Unexplained Change in Mental Status Sepsis Action Taken by Nursing Pulse Rate Pulse Rate [Apical] 111 H Pulse Rate from SpO2 Sensor Pulse Rhythm Pulse Rhythm [Apical] Irregular Respiratory Rate 19 Respiratory Effort / Characteristics Non-Labored Spontaneous Respiratory Depth Normal Respiratory Pattern Regular Blood Pressure Blood Pressure [Left Arm] 145/95 H 178/115 H Blood Pressure [Right Arm] 150/110 H Blood Pressure Mean Blood Pressure Mean [Left Arm] 111 136 Blood Pressure Mean [Right Arm] 123 Blood Pressure Position [Left Arm] Sitting Pulse Oximetry 97 Oxygen Delivery Method Room Air Constitutional: Vital signs reviewed. Eyes: Pupils are equal round reactive to light. Conjunctiva are noninjected. ENT: Pharynx is clear without erythema or exudate. Mucous membranes are moist. Neck supple without meningeal signs. Respiratory: Clear to auscultation bilaterally. Breath sounds are equal bilaterally. Cardiovascular: Tachycardic heart rate at 110. Regular rhythm. No rubs or gallops. GI: Soft, nondistended and nontender. Bowel sounds are present. Rectal: Guaiac negative black stool. No blood. Musculoskeletal: No peripheral edema. No lower extremity tenderness. Integumentary: No cyanosis. Neurological: The patient is awake and alert. No focal deficits. Psychiatric: Normal affect. Course 1445: Past medical records reviewed. The patient was evaluated in room B11. A complete history and physical exam was performed. 1618: The patients heart rate came down to the 80s after the administration of Diltiazem. The patient's blood pressure has significantly improved. 1625: I discussed test results with the patient who has no complaints. 1627: I reviewed the patient's case with Dr. Mir, [facility] Hospitalist . She will evaluate the patient for further management. Consultations Consultation #1: I reviewed the patient's case with Dr. Mir, [facility] Hospitalist . She will evaluate the patient for further management. Time: 16:27 Administered Medications Discontinued Medications Diltiazem HCl (Cardizem) 10 mg IV NOW STA Stop: 02/13/19 15:29 Last Admin: 02/13/19 15:32 Dose: 10 mg Documented by: [id number] Cosigned by: [id number] Medical Decision Making Differential Diagnosis Differential diagnosis includes: melena, GI bleed, PUD, anemia, medication adverse effect as well as others entertained. Medical Records Attestation: I reviewed the patient's medical records. I did perform a limited focused review of portions of the patient's old chart on the electronic medical record. The patient has had no recent pertinent visits to this hospital. Home Medications Current Medication List: was personally reviewed by me Laboratory Data Attestation: I reviewed the patient's lab results. Result diagrams: 02/13/19 14:41 02/13/19 15:34 Lab Results 02/13/19 02/13/19 02/13/19 Range/Units 14:41 14:41 14:41 WBC 6.73 (4.8-10.8) K/uL RBC 3.85 L (4.2-5.4) M/uL Hgb 11.6 L (12.0-16.0) g/dL Hct 34.6 L (37-47) % MCV 89.9 (80-100) fL MCH 30.1 (25-34) pg MCHC 33.5 (32-36) g/dL RDW Std Deviation 48.0 H (36.4-46.3) fL RDW Coeff of Carlo 14.9 H (11.5-14.5) % Plt Count 335 (130-400) K/uL MPV 10.6 H (7.4-10.4) fL PT Cancelled INR Cancelled APTT Cancelled PTT Ratio Cancelled Sodium 132 L (136-145) mmol/L Potassium (3.5-5.1) mmol/L Chloride 97 L (98-107) mmol/L Carbon Dioxide 18 L (21-32) mmol/L Anion Gap 17.0 H (3-11) BUN 64 H (7-18) mg/dl Creatinine 3.95 H (0.6-1.2) mg/dl Est Cr Clr Drug Dosing 10.8 ml/min Est GFR ( Amer) 12.0 Est GFR (Non-Af Amer) 10.3 BUN/Creatinine Ratio 16.2 (10-20) Glucose 83 (70-99) mg/dl Calcium 8.7 (8.5-10.1) mg/dl Magnesium (1.8-2.4) mg/dl Total Bilirubin 1.3 H (0.2-1) mg/dl AST (15-37) U/L ALT 40 (12-78) U/L Alkaline Phosphatase 119 H (45-117) U/L Troponin I (0-0.045) ng/ml Total Protein 7.6 (6.4-8.2) gm/dl Albumin 3.8 (3.4-5.0) gm/dl Globulin 3.8 (2.5-4.0) gm/dl Albumin/Globulin Ratio 1.0 (0.9-2) POC Stool Occult Blood (Negative) 02/13/19 02/13/19 02/13/19 Range/Units 14:41 14:51 15:34 WBC (4.8-10.8) K/uL RBC (4.2-5.4) M/uL Hgb (12.0-16.0) g/dL Hct (37-47) % MCV (80-100) fL MCH (25-34) pg MCHC (32-36) g/dL RDW Std Deviation (36.4-46.3) fL RDW Coeff of Carlo (11.5-14.5) % Plt Count (130-400) K/uL MPV (7.4-10.4) fL PT 13.1 H INR 1.3 H APTT 29.0 PTT Ratio 1.1 Sodium (136-145) mmol/L Potassium (3.5-5.1) mmol/L Chloride (98-107) mmol/L Carbon Dioxide (21-32) mmol/L Anion Gap (3-11) BUN (7-18) mg/dl Creatinine (0.6-1.2) mg/dl Est Cr Clr Drug Dosing ml/min Est GFR ( Amer) Est GFR (Non-Af Amer) BUN/Creatinine Ratio (10-20) Glucose (70-99) mg/dl Calcium (8.5-10.1) mg/dl Magnesium (1.8-2.4) mg/dl Total Bilirubin (0.2-1) mg/dl AST (15-37) U/L ALT (12-78) U/L Alkaline Phosphatase (45-117) U/L Troponin I 0.083 H* (0-0.045) ng/ml Total Protein (6.4-8.2) gm/dl Albumin (3.4-5.0) gm/dl Globulin (2.5-4.0) gm/dl Albumin/Globulin Ratio (0.9-2) POC Stool Occult Blood Negative (Negative) 02/13/19 Range/Units 15:34 WBC (4.8-10.8) K/uL RBC (4.2-5.4) M/uL Hgb (12.0-16.0) g/dL Hct (37-47) % MCV (80-100) fL MCH (25-34) pg MCHC (32-36) g/dL RDW Std Deviation (36.4-46.3) fL RDW Coeff of Carlo (11.5-14.5) % Plt Count (130-400) K/uL MPV (7.4-10.4) fL PT INR APTT PTT Ratio Sodium (136-145) mmol/L Potassium 4.0 (3.5-5.1) mmol/L Chloride (98-107) mmol/L Carbon Dioxide (21-32) mmol/L Anion Gap (3-11) BUN (7-18) mg/dl Creatinine (0.6-1.2) mg/dl Est Cr Clr Drug Dosing ml/min Est GFR ( Amer) Est GFR (Non-Af Amer) BUN/Creatinine Ratio (10-20) Glucose (70-99) mg/dl Calcium (8.5-10.1) mg/dl Magnesium 2.7 H (1.8-2.4) mg/dl Total Bilirubin (0.2-1) mg/dl AST 46 H (15-37) U/L ALT (12-78) U/L Alkaline Phosphatase (45-117) U/L Troponin I (0-0.045) ng/ml Total Protein (6.4-8.2) gm/dl Albumin (3.4-5.0) gm/dl Globulin (2.5-4.0) gm/dl Albumin/Globulin Ratio (0.9-2) POC Stool Occult Blood (Negative) ECG Data Attestation: I personally reviewed and interpreted this ECG as follows: Rate (beats per minute): 135 Rhythm: atrial flutter (with variable block) Findings: + T-wave inversion (in 1 and AVL ) and + left axis deviation Comparison ECG Date: from (07/12/2017) Change: the following changes noted (T Wave is old but atrial flutter is new) Additional Comments: A repeated EKG showed atrial fibrillation at a rate of 89, PVCs and persistent T Wave inversion in 1 and AVL. Blood Pressure Blood Pressure Findings: Normal blood pressure MDM Narrative I did evaluate the patient as noted above. The patient is presenting for concern over black stools. I did perform a rectal examination which showed guaiac negative black stools. She does note that she did have a teaspoon of Pepto-Bismol a week ago. She denies having abdominal pain. She is not on any other blood thinners than aspirin. She is, however, tachycardic. IV access was established. The patient was placed on a continuous machine rebuilder. She appears to have atrial fibrillation with RVR I did order and personally review the patient's 12-lead EKG as described above. She does have a flutter with RVR with variable block and T wave inversions in the high lateral leads. The T wave inversions are present on her previous EKG but not the a flutter. I did treat her with Cardizem 10 mg IV. Her heart rate came down to the 80s and her blood pressure improved significantly. Repeat twelve-lead EKG shows atrial fibrillation with continued T wave inversions but no ST elevations. She states that she has never had a history of atrial fibrillation or irregular heart rate. I did order and review the patient's blood work as noted in the electronic medical record. The patient is anemic with a hemoglobin of 11.6 but she states this is not unusual for her. She does have evidence of kidney injury with a creatinine of almost 4. Prior creatinine was noted to be above 2. Her potassium is normal here. Her troponin is elevated. It is unclear whether this is related to her tachycardia and cardiac disease or a result of her poor kidney function. I did discuss the test results with the patient and recommended hospitalization for further care and evaluation. I did discuss case with h ospitalist and continuous pillowcase cutter. Impression & Plan RALPH (acute kidney injury), Anemia, Melena, New onset a-fib, Atrial fibrillation with RVR, Elevated troponin Discharge Plan Visit Data Chief Complaint: GI Assessment Stated Complaint: black stool ED Provider: Tab Larsen Discharge Problem: RALPH (acute kidney injury), Anemia, Melena, New onset a-fib, Atrial fibrillation with RVR, Elevated troponin Patient Disposition: Being Evaluated by Hospitalist Forms Stand Alone Forms: My [facility] Prescriptions Prescriptions: No Action ergocalciferol (vitamin D2) 50,000 unit capsule 50,000 units PO WEEKLY Qty: 4 RF: 11 fluticasone propion-salmeterol [Advair Diskus] 250-50 mcg/dose blister with device 1 puffs INH Q12H Qty: 60 RF: 11 hydralazine 25 mg tablet 25 mg PO TID Qty: 90 RF: 11 ranitidine HCl 150 mg capsule 150 mg PO BID Qty: 60 RF: 11 mupirocin 2 % ointment 1 appln TOP BID Qty: 15 RF: 0 furosemide 40 mg tablet 40 mg PO QAM RF: 0 venlafaxine 75 mg capsule,extended release 24hr 75 mg PO QAM RF: 0 aspirin 81 mg tablet,delayed release (DR/EC) 81 mg PO QAM RF: 0 amlodipine 10 mg tablet 10 mg PO QAM RF: 0 levothyroxine 150 mcg tablet 150 mcg PO QAM RF: 0 vitamin B complex [B Complex-Vitamin B12] tablet 1 tab PO QAM RF: 0 folic acid 1 mg tablet 1 mg PO QAM RF: 0 cholecalciferol (vitamin D3) 400 unit capsule 400 units PO QAM RF: 0 metoprolol tartrate 25 mg tablet 25 mg PO QAM RF: 0 Referrals Referrals: Mike Carrington MD [Primary Care Provider] - Discharge Problem: Anemia Qualifiers: Anemia type: unspecified type Qualified Code(s): D64.9 - Anemia, unspecified The scribe's documentation has been prepared under my direction and personally reviewed by me in its entirety. I confirm that the note above accurately reflects all work, treatment, procedures, and medical decision making performed by me.
[2019-02-13] MEDS ORDERED: ACETAMINOPHEN 325 MG TAB PO PRN (19:39)
[2019-02-13] MEDS ORDERED: SODIUM CHLORIDE 0.9% 1000ML 1,000 ML IV SCH (19:39)
[2019-02-13] MEDS ORDERED: ZOLPIDEM TARTRATE 5 MG TAB PO PRN (19:39)
[2019-02-13 20:01] LABS: Basophils # (auto) 0.06 K/uL (0-0.2); Eosinophils # (auto) 0.11 K/uL (0-0.5); Eosinophils % (auto) 1.8 %; Hematocrit (blood only) 33.1 % (37-47); Hemoglobin 10.9 g/dL (12.0-16.0); Immature Granulocytes # (auto) 0.04 K/uL (0.00-0.02); Immature Granulocytes % (auto) 0.7 %; Lymphocytes % (auto) 19.6 %; Mean Corpuscular Hgb Conc 32.9 g/dL (32-36); Mean Corpuscular Volume 90.2 fL (80-100); Mean Platelet Volume 10.5 fL (7.4-10.4); Monocytes # (auto) 0.76 K/uL (0.11-0.59); Monocytes % (auto) 12.4 %; Neutrophils # (auto) 3.96 K/uL (1.4-6.5); Neutrophils % (auto) 64.5 %; Nucleated RBC # (auto) 0.06 K/uL (0-0); Platelet Count 289 K/uL (130-400); RDW Coefficient of Variation 15.1 % (11.5-14.5); RDW Standard Deviation 48.9 fL (36.4-46.3); Red Blood Count 3.67 M/uL (4.2-5.4); White Blood Count 6.13 K/uL (4.8-10.8)
[2019-02-13] MEDS: FLUTICASONE/SALMETEROL 250/50 (ADVAIR) 14 PUFF/1 INHALER INH SCH (20:25)
[2019-02-13] MEDS: METOPROLOL TARTRATE 25 MG TAB PO SCH (20:26)
[2019-02-13] MEDS: MUPIROCIN 2% OINT 22 GM TUBE TOP SCH (20:26)
[2019-02-14 01:33] LABS: Basophils # (auto) 0.06 K/uL (0-0.2); Basophils % (auto) 1.1 %; Eosinophils # (auto) 0.19 K/uL (0-0.5); Eosinophils % (auto) 3.6 %; Hemoglobin 10.6 g/dL (12.0-16.0); Immature Granulocytes # (auto) 0.03 K/uL (0.00-0.02); Immature Granulocytes % (auto) 0.6 %; Lymphocytes # (auto) 1.03 K/uL (1.2-3.4); Lymphocytes % (auto) 19.4 %; Mean Corpuscular Hgb Conc 33.1 g/dL (32-36); Mean Corpuscular Volume 89.9 fL (80-100); Mean Platelet Volume 10.3 fL (7.4-10.4); Monocytes # (auto) 0.84 K/uL (0.11-0.59); Monocytes % (auto) 15.8 %; Neutrophils # (auto) 3.16 K/uL (1.4-6.5); Neutrophils % (auto) 59.5 %; Nucleated RBC # (auto) 0.04 K/uL (0-0); Nucleated RBC % (auto) 0.8 %; Platelet Count 253 K/uL (130-400); RDW Coefficient of Variation 14.9 % (11.5-14.5); RDW Standard Deviation 48.5 fL (36.4-46.3); Red Blood Count 3.56 M/uL (4.2-5.4); Reticulocyte % 2.9 % (0.5-2.0); White Blood Count 5.31 K/uL (4.8-10.8)
[2019-02-14 01:52] LABS: Albumin Level 3.2 gm/dl (3.4-5.0); Calcium 8.3 mg/dl (8.5-10.1); Creatinine Clr Calc Pharmacy 10.9 ml/min; Est GFR (African American) 12.1; Est GFR (Non-African American) 10.4; Potassium 3.9 mmol/L (3.5-5.1)
[2019-02-14 01:59] LABS: Bilirubin,Total 1.1 mg/dl (0.2-1); Globulin 3.2 gm/dl (2.5-4.0); Total Protein 6.4 gm/dl (6.4-8.2)
[2019-02-14] MEDS ORDERED: METOPROLOL TARTRATE 1 MG/ML VIAL IV ONE (02:55)
--- NOTE | 2019-02-14 06:16 | CT Scan Report ---
CT abd pelvis wo con CT DOSE: 598.39 mGy.cm HISTORY: Pain melena, please include pelvis TECHNIQUE: Multiaxial CT images of the abdomen and pelvis were performed without contrast. A dose lo wering technique was utilized adhering to the principles of ALARA. COMPARISON STUDY: 04/26/2017 FINDINGS: Right pleural effusion. Minimal left effusion. Superimposed atelectatic/infiltrative change right base. Mild gallbladder distention. Several small gallstones. Liver spleen and pancreas are unr emarkable. Atrophy of the right kidney. No evidence for left renal hydronephrosis. Nonobstructive bowel pattern. Mild nonobstructive colonic ileus. Extensive atherosclerotic change of the abdominal and pelvic arterial vasculature. IMPRESSION: 1. Mild generalized nonobstructive colonic ileus. 2. Atrophy right kidney. 3. Mild gallbladder distention 4. Several small gallstones. 5. Small bilateral pleural effusions. 6. Superimposed infiltrative process right lung base. The above report was generated using voice recognition software. It may contain grammatical, syntax or spelling errors. Electronically signed by: Kamari Florez M.D. 02/14/2019 6:14 AM
--- NOTE | 2019-02-14 06:23 | XRay Report ---
XR chest Pre-admission PA/Lat CLINICAL HISTORY: Atrial fibrillation PREOPERATIVE CHEST COMPARISON STUDY: July 12, 2017 FINDINGS: The heart is enlarged. There are aortic calcifications. There are trace bilateral pleural e ffusions with basilar opacity statistically atelectatic. There is mild pulmonary venous hypertension[ IMPRESSION: Cardiomegaly and mild pulmonary venous hypertension. Trace pleural effusions with associa shashank basilar opacity statistically atelectatic. Electronically signed by: Marek Garcia M.D. 02/14/2019 6:22 AM
[2019-02-14] MEDS ORDERED: LEVOTHYROXINE SODIUM 150 MCG TABLET PO SCH (06:30)
[2019-02-14] MEDS ORDERED: PERFLUTREN LIPID MICROSPHERE (DEFINITY) IV ONE (07:49)
[2019-02-14] MEDS: METOPROLOL TARTRATE 25 MG TAB PO SCH (08:20)
[2019-02-14] MEDS: FLUTICASONE/SALMETEROL 250/50 (ADVAIR) 14 PUFF/1 INHALER INH SCH (08:21)
[2019-02-14] MEDS: MUPIROCIN 2% OINT 22 GM TUBE TOP SCH (08:21)
[2019-02-14] MEDS ORDERED: DEXTROSE 50% 50 ML SYRINGE IV STA (08:41)
[2019-02-14] MEDS ORDERED: D5W AND NSS 1,000 ML IV SCH (08:45)
[2019-02-14] MEDS ORDERED: CYANOCOBALAMIN 500 MCG TABLET (VITAMIN B-12) PO SCH (09:00)
[2019-02-14] MEDS ORDERED: ERGOCALCIFEROL 50,000 UNITS CAP PO SCH (09:00)
[2019-02-14] MEDS ORDERED: VENLAFAXINE HCL XR 75 MG CAPXR PO SCH (09:00)
[2019-02-14] MEDS ORDERED: ASPIRIN 81 MG ECTAB PO SCH (09:00)
[2019-02-14] MEDS ORDERED: FOLIC ACID 1 MG TAB PO SCH (09:00)
[2019-02-14] MEDS ORDERED: CHOLECALCIFEROL (VITAMIN D) 400 UNITS TABLET PO SCH (09:00)
[2019-02-14] MEDS ORDERED: FUROSEMIDE 40 MG TAB PO SCH (09:00)
[2019-02-14] MEDS ORDERED: AMLODIPINE BESYLATE 5 MG TAB PO SCH (09:00)
[2019-02-14] MEDS ORDERED: SODIUM BICARBONATE 650 MG TAB PO SCH (09:30)
--- NOTE | 2019-02-14 11:09 | Nephrology Consultation ---
Date of Consultation February 14, 2019 Assessment & Plan (1) RALPH (acute kidney injury): Nighat has stage 4 chronic kidney disease with baseline creatinine 2.5-3.0 in the setting of hypertension, diabetes and right atrophic kidney. Admitted to the hospital with questionable GI bleeding however her hemoglobin remained stable at her baseline. She was found to have acute kidney injury creatinine was 4.0 which remained stable, potassium normal however has metabolic acidosis. She has been voiding normally. She is currently otherwise asymptomatic and she just wants to go home. Previously had discussion many time regarding future goals of care for advanced CKD including conservative management and renal replacement therapy however patient was noncompliant with her medical care and repeatedly was a no show so it was not possible to make any plan for future. We again discussed about the anemia plan for renal replacement therapy versus conservative management however it is unclear whether patient really understands her overall health situation. She was not able to make any decision and wanted to have more time however she did not want to stay in hospital and just wanted to leave. --start on sodium bicarbonate 650 mg twice a day --will try to schedule for office follow-up in next 1-2 weeks and encourage patient to bring her family member for further discussion --check renal function before follow-up --avoid nephrotoxic medications, keep well hydrated. Thank you for allowing me to participate in your patient's care. It was a pleasure to see Nighat (2) Chronic kidney disease (CKD) stage G4/A2, severely decreased glomerular filtration rate (GFR) between 15-29 mL/min/1.73 square meter and albuminuria creatinine ratio between 30-299 mg/g: (3) Hypertension: (4) Anemia: (5) Atrial fibrillation with RVR: (6) Proteinuria: (7) Metabolic acidosis: History of Present Illness Reason for Consultation: Acute kidney injury with advanced CKD and electrolyte abnormality. Attending Physician: Rober Roberson History of Present Illness Therese Figueroa is a 78-year-old female with past medical history significant for stage 4 chronic kidney disease with history of recurrent acute kidney injury, hypertension, chronic anemia, atrial fibrillation admitted to the hospital with do questionable GI bleeding and found to have acute kidney injury. Nephrology consult was requested for further management of acute kidney injury and electrolyte abnormality. Nighat presented to the hospital yesterday with 2 days history of black stool. On admission her hemoglobin was found to be stable with history of chronic anemia, hemoglobin was 10.6 which remained stable. Denied any further episode black stool while in hospital. She denies any other symptom, no nausea, vomiting, abdominal pain. Her baseline creatinine has been 2.5-3, on admission creatinine was 4 which remained stable. Potassium normal. Has metabolic acidosis with bicarb around 18. She reports voiding normally, no shortness of breath or chest pain. Appetite and p.o. intake has been normal. She reports feeling great and just wants to go home. Nighat has stage IV CKD in the setting of hypertension, hypertensive and right atrophy kidney,her baseline creatinine has been 2.5-3 with history of recurrent acute kidney injury and variability in creatinine. Previous Ultrasound showed right atrophy kidney with rt kidney 5.6 cm and left kidney 12.1 cm without any evidence of hydronephrosis or mass or nephrolithiasis. She has moderate degree proteinuria, spot urine protein creatinine ratio around 2.0, prior Workup including serological workup and workup for paraproteinemia was negative. History of diabetes with no history of retinopathy. She was seen last in office in April 2017 since then she had been mostly no-show. Previously had multiple discussion about future plan for advanced CKD including conservative management and renal replacement therapy options however no decision was made as patient missed repeated follow-up appointments. Has hypertension for many years, seems to be well control on amlodipine 10, Lasix 40 mg daily, diltiazem and hydralazine 25 milligram 3 times a day. Allergies Allergy/AdvReac Type Severity Reaction Status Date / Time doxycycline Allergy Unknown Unknown Unverified 02/13/19 15:01 labetalol Allergy Unknown Unknown Unverified 02/13/19 15:01 lorazepam Allergy Unknown Unknown Unverified 02/13/19 15:01 Pork/Porcine Containing Allergy Unknown unknown Unverified 02/13/19 15:01 Products tetracycline Allergy Unknown unknown(not Unverified 02/13/19 15:01 100% sure if she's allergic to it) tramadol AdvReac Unknown dizzy, Verified 02/13/19 15:01 emesis Home Medications Home Medications Medication Instructions Recorded Confirmed Type mupirocin 2 % topical ointment 1 appln TOP BID #15 gm 01/26/19 02/13/19 Rx fluticasone 250 mcg-salmeterol 50 1 puffs INH Q12H #60 ea 01/28/19 02/13/19 Rx mcg/dose blistr powdr for inhalation hydralazine 25 mg tablet 25 mg PO TID #90 tab 01/28/19 02/13/19 Rx ranitidine 150 mg capsule 150 mg PO BID #60 cap 01/28/19 02/13/19 Rx amlodipine 10 mg PO QAM 02/13/19 02/13/19 History aspirin 81 mg PO QAM 02/13/19 02/13/19 History cholecalciferol (vitamin D3) 400 units PO QAM 02/13/19 02/13/19 History folic acid 1 mg PO QAM 02/13/19 02/13/19 History furosemide 40 mg PO QAM 02/13/19 02/13/19 History levothyroxine 150 mcg PO QAM 02/13/19 02/13/19 History venlafaxine 75 mg PO QAM 02/13/19 02/13/19 History vitamin B complex [B 1 tab PO QAM 02/13/19 02/13/19 History Complex-Vitamin B12] metoprolol tartrate 25 mg PO BID #60 tab 02/14/19 02/13/19 Rx sodium bicarbonate 650 mg PO BID #60 tab 02/14/19 Rx Patient History Medical History Psoriasis Diabetes mellitus with neuropathy (Chronic) Hypertension (Chronic) Hypothyroidism (Chronic) Proteinuria Anemia Anemia associated with chronic renal failure Acute kidney injury superimposed on chronic kidney disease Chronic kidney disease (CKD) stage G4/A2, severely decreased glomerular filtration rate (GFR) between 15-29 mL/min/1.73 square meter and albuminuria creatinine ratio between 30-299 mg/g Dehydration Gastroenteritis Hypertension SIADH (syndrome of inappropriate ADH production) Social History Preferred Language: Grenadian Beliefs That Will Affect Care: Taoism Taoism Beliefs: presybeterian Current Living Situation: Alone Feels Safe at Home: Yes Smoking Status: Never smoker Hx Alcohol Use: Yes Hx Substance Use: No Review of Systems Review of Systems: All systems reviewed & are unremarkable except as noted in HPI & below Physical Exam Constitutional: WD/WN, vitals as above well developed and well nourished; no acute distress Eyes: PERRL, conjunctivae normal, anicteric sclerae ENMT: external ear and nose normal, oropharynx normal Ears: no hearing impairment Neck: trachea midline Respiratory: normal respiratory effort, lungs clear to auscultation no cough Auscultation: no crackles, no rales and no wheezes Cardiovascular: Rate/Rhythm: + irregularly irregular Heart Sounds: normal S1 and normal S2 Extremities: no edema Gastrointestinal (Abdomen): normal bowel sounds, soft, nontender, no hepatosplenomegaly Percussion/Palpation: abdomen nontender, no guarding and abdomen not rigid Musculoskeletal: Extremities: extremities normal to inspection Gait: normal gait Skin: no rashes, warm and dry Neurologic: moves all extremities and awake Psychiatric: A+Ox3, euthymic affect Results & Data Vital Signs (Past 12 Hours) Vital Signs Temp Pulse Pulse Resp BP BP BP 02/14/19 09:53 150/79 H 02/14/19 08:00 182/120 H 02/14/19 07:57 36.7 C 93 H 20 156/115 H 02/14/19 04:00 85 18 154/84 H 02/14/19 03:24 36.8 C 87 17 158/96 H 02/14/19 03:11 85 152/104 H 02/13/19 23:16 36.8 C 88 17 157/114 H Pulse Ox 02/14/19 09:53 02/14/19 08:00 02/14/19 07:57 94 02/14/19 04:00 95 02/14/19 03:24 92 02/14/19 03:11 02/13/19 23:16 94 PG Care Time/CCT Total # of Minutes Spent Total Time Spent with Patient: Total time spent is greater than 50% in coordination of care (as documented) at patient's floor/unit and/or counseling patient: (1) Anemia Anemia type: unspecified type Qualified Code(s): D64.9 - Anemia, unspecified
--- NOTE | 2019-02-14 11:33 | Discharge Summary ---
Date of Service date of admission - February 13, 2019 date of discharge - February 14, 2019 Admission HPI Per Admitting Provider Patient is a 78 years old female with significant past medical history for hypertension, hyperlipidemia, hypothyroidism, chronic anemia, CKD stage V, diabetes mellitus type 2 with neuropathy, psoriasis. Presents to the emergency room with a complaint of black stool that she noted this morning. Patient states that she used Pepto-Bismol approximately 7 days ago and had a normal stool so far except for today. Patient reports that her stool was clearly black and there was a large amount of it. Patient denies dizziness ,fever,chills,headache, chest pain, shortness of breath, abdominal pain, frequency, urgency, hemoptysis, hematemesis or hematochezia. Labs reviewed significant for H&H of 11.6/34.6 (in August 2017 patient's H&H was 10.2/30.9) R DVT of 48 MCV of 89.9 MCH of 30.1 MCHC 33.5, INR of 1.3, PT 13.1, sodium 132 potassium 4, chloride 97, anion gap 17.0, BUN 64, creatinine 3.95, GFR 10.8, AST 46,ALT 40, alkaline phosphatase 119, troponin 0 0.083. Chest x-rays pending. EKG atrial fibrillation with premature ventricular complexes, T wave inversion. No ST segment elevation or depression in 2 consecutive leads. Patient reports she never had A. fib before. Chart review shows that patient was seen by Dr.Jason Meadows in 2017 and at that point he evaluated patient for first-degree AV block and Wenckebach physiology without obvious second-degree AV block. He recommended to follow-up patient closely for hypothyroidism chronic severe hyponatremia, alcohol abuse, hypertension and hypokalemia. At that time he did not recommend a pacemaker because there was no high degree AV block. Principal Diagnosis concern for melena - ruled out; new onset a.fib and systolic CHF Discharge Exam Constitutional well developed, well nourished and average body habitus; no acute distress ENMT external ear and nose normal, oropharynx normal Mouth: + lip abnormality (upper lip w/ venous congestion/dilated vessels) Respiratory normal respiratory effort, lungs clear to auscultation Cardiovascular Rate/Rhythm: regular rate and + irregularly irregular Heart Sounds: normal S1, normal S2 and + murmur (2/6 LSB) Vessels: posterior tibial pulses present and dorsalis pedis pulses present; no JVD Extremities: no edema Gastrointestinal (Abdomen) normal bowel sounds, soft, nontender, no hepatosplenomegaly Psychiatric A+Ox3, euthymic affect Affect: + tearful affect Discharge Data Allergies Allergy/AdvReac Type Severity Reaction Status Date / Time doxycycline Allergy Unknown Unknown Unverified 02/13/19 15:01 labetalol Allergy Unknown Unknown Unverified 02/13/19 15:01 lorazepam Allergy Unknown Unknown Unverified 02/13/19 15:01 Pork/Porcine Containing Allergy Unknown unknown Unverified 02/13/19 15:01 Products tetracycline Allergy Unknown unknown(not Unverified 02/13/19 15:01 100% sure if she's allergic to it) tramadol AdvReac Unknown dizzy, Verified 02/13/19 15:01 emesis Consultations 1. Cardiology - Sheng Brunner MD 2. Nephrology - Kortney Parikh MD Ordered Studies 1. CT abd/pelvis - IMPRESSION: 1. Mild generalized nonobstructive colonic ileus. 2. Atrophy right kidney. 3. Mild gallbladder distention 4. Several small gallstones. 5. Small bilateral pleural effusions. 6. Superimposed infiltrative process right lung base. 2. echocardiogram - * EF 25-30% * global hypokinesis of LV * moderate RV systolic dysfunction * moderate pulmonary HTN * moderate mitral regurgitation * LA severely dilated Hospital Course (1) Anemia: Patient's main concern upon presentation was that of possible melena. HOWEVER, stool was heme negative and hemoglobin ranged from 10.6 to 11.6 during the stay. This is about baseline per records. It turns out that the patient had taken Pepto-Bismal several days prior to presentation and thus the dark stool was likely due to such. (2) New onset a-fib: Upon ER presentation the patient was found to be in rapid a.flutter. She was admitted to telemetry and her rhythm was mostly a.fib. She was resumed on her metoprolol from home and her rate control was actually quite adequate while here. I question if she had been taking her metoprolol at home. She was on once daily metoprolol tartrate only. I increased the metoprolol tartrate to 25mg BID. This will need to be changed to metoprolol succinate as an outpatient due to her systolic CHF. Dr Brunner from cardiology discussed anticoagulation with her due to her high CHADS score and she declined such. It was also felt that her newly discovered CHF could have been due to uncontrolled a.fib/flutter. She will need follow-up with cardiology shortly after discharge to ensure adequate rate control. (3) Cardiomyopathy: Severe, with EF 25-30%. The global hypokinesis may suggest that her systolic dysfunction is from tachy- arrhythmia (ie a.fib/flutter). She is NOT a candidate for heart cath to rule out ischemic disease given her CKD stage 5. She will continue beta letty (see above in "a.fib"). She is not a candidate for CARLOS/ARB therapy due to CKD. Continue lasix. CHF instructions were given and she was counseled on the importance of salt restriction, fluid restriction and daily weights. Cardiology follow-up post-discharge will be needed. (4) Pulmonary hypertension: Moderate. Relatively asymptomatic from such. (5) Mitral regurgitation: Moderate. Likely functional in the setting of her severe CHF. (6) Systolic CHF: see discussion above in "Cardiomyopathy". (7) Elevated troponin: Likely due to myocardial demand ischemia from rapid a.flutter/fib in the setting of CKD stage 5. (8) Hypothyroidism: Patient takes levothyroxine. Last TSH was in 08/2017. She will need a TSH shortly after discharge to ensure she has euthyroid state. Excessive hormone replacement could potentially make her a.fib/flutter worse. (9) Hypertension: Uncontrolled. Metoprolol has been increased this visit. She will continue her other usual medications. (10) CKD (chronic kidney disease) stage 5, GFR less than 15 ml/min: In August 2017 her creatinine was 2.5 It is now 3.9. This likely represents progression of her severe CKD. She has been noncompliant with past medical visits to nephrology. She was seen by nephrology, Dr Parikh, during this hospitalization. Repeat labs will be done in the week following discharge and she will follow-up with Dr Parikh in that time frame as well. She has been counseled by multiple providers that her CKD has progressed considerably and that dialysis would need to be discussed further in the near future. Sodium bicarbonate 650mg BID was added at discharge to help with acid-base balance. (11) Discharge planning issues: On the AM of 02/14/19 the patient wished to leave AMA (against medical advice). After a lengthy discussion she was agreeable to being discharged in the customary fashion rather than leaving AMA. I had a very haja discussion with the patient and her daughter just before discharge regarding her newly-found a.fib, new-onset CHF, and the worsening CKD. She and her daughter voiced understanding. Patient was counseled about the high risk of morbidity with these issues including stroke, volume overload, and even . She ultimately was agreeable to having home health services post-discharge. Total Time Total Time Spent Total Time Spent (In Minutes): 60 Total Time Includes: Examination of the Patient, Discharge Planning, Medication Reconciliation and Communication With Other Providers Discharge Plan Discharge Items Patient Disposition: Home - Self-Care Reason For Visit: CONCERN FOR MELENA (BLOOD IN STOOL) Discharge Diagnosis: 1. CONCERN FOR MELENA - ruled out, stool did NOT contain blood. 2. newly discovered atrial fibrillation 3. newly discovered congestive heart failure Discharge Goals: Diagnostic testing and Therapeutic intervention Activity: Resume your previous activity Activity Comment: as tolerated Non-emergency contact: Primary Care Provider and [employer] Call non-emergency contact if: you have any medication questions, your symptoms worsen and your temperature is above 100.5 Follow-up/Referrals: Mike Carrington MD [Primary Care Provider] - (see Dr Carrington or one of his partners within 1 week) Sheng Brunner MD [Physician] - (see Dr Brunner or Dr Grimaldo (or any other cardiology provider) in 1 week if possible; please call their office to schedule.) Kortney Parikh MD [Physician] - 02/21/19 1:00 pm (Please follow up at [facility] Nephrology Office with Dr. Parikh on ThursdayFebruary 21 at 1:00 pm. *The office is located in [address] of [facility]. This is the big building next to this [facility]. If you need to change this appointment, call the office at [phone].) Diet: Carb Consistent or DM2 and Low Potassium (2gm) Fluids: 1500ml (6 cups) Other Ambulatory Orders: Basic Metabolic Panel (Routine) Timeframe: 1 Week Location: Determined by Patient Ordered By: Rober R Siuta Complete Blood Count no Diff (Routine) Timeframe: 1 Week Location: Determined by Patient Ordered By: Rober Roberson Phosphorus (Routine) Timeframe: 1 Week Location: Determined by Patient Ordered By: Rober Roberson Addtl Provider Instructions: You came to the hospital for concern of blood in the stool as your stool had been very dark. The stool tested heme NEGATIVE (meaning no traces of blood were found). The dark stool was likely from recent use of Pepto-bismal. 3 additional issues were seen while you were hospitalized. FIRST -- your kidney function has deteriorated considerably in the last year. In August of 2017 your creatinine (kidney function number) was 2.5. Today it is 3.9. This is a significant worsening of your kidneys. It is vital for you to follow closely with Dr Parikh from nephrology. She wants to see you in her clinic [facility] (1-2 weeks). SECOND -- you were found to have an irregular heart rhythm called atrial fibrillation (a.fib for short). A.fib is a BIG risk factor for stroke (little blood clots form in the heart which can be pumped out of the heart and to the brain causing a stroke). A.fib can also lead to congestive heart failure (fluid retention in the lungs, legs, etc as a result of a weak heart). THIRD -- we found that you have a weak heart. This is called "congestive heart failure." A normal ejection fraction (a number that tells how strong your heart pumping ability is) is typically 60-65%. We found that your ejection fraction is 25-30%. This may be due to the a.fib. You were seen by the seafood packer and they have recommended we increase your metoprolol. They have also recommended blood thinners but you are declining this. Recommendations -- 1. start sodium bicarbonate tablets - 650mg twice daily. This is for your kidneys. 2. INCREASE your metoprolol to 25mg twice a day. This is for your blood pressure and a.fib. 3. Please re-CONSIDER a blood thinner (anticoagulant) for the a.fib to reduce the chances of stroke. 4. OBTAIN a repeat blood test for your kidneys in the next 1 week. These can be obtained at the [facility]. 5. follow a low salt, low potassium diet due to your rapidly worsening kidney disease. 6. Limit your total daily fluid intake to 1500cc/day. 7. check your weight EVERY DAY on the same scale. (see congestive heart failure instructions below) Follow-up -- see separate section. Return to [facility] if -- * you have fever over 100.5 degrees * you have worsening shortness of breath, swelling in your legs, or chest pain * you have palpitations/tachycardia/rapid heart beating * any other concerns Additional congestive heart failure instructions -- Call 911 and go to the Emergency Room if: * You have tightness or pain in your chest that does not go away with rest or Nitroglycerin * You are very short of breath even with rest Call your doctor if any of the following symptoms or problems start or get worse: * Shortness of breath or difficulty breathing * Wake up at night short of breath * Chest pain * Cough * Swelling of your hands, fee, or legs * More fatigued or tired with your normal activity * Palpitations - sudden fast heart beats WEIGHT * Weigh yourself every morning after using the bathroom. * Use the same scale. * Wear the same amount of clothing. * Write your weight down on your chart. * Call your doctor if you gain more than 2-3 pounds in 1-2 days. This is often a sign of fluid retention from your kidneys or your heart. Do not wait to call -- call your doctors right away.* MEDICATIONS * Use this discharge instruction sheet for instructions. * Take your medications at the time your doctor ordered. * Do not skip a dose of your medicines. * If you miss a dose of medicine, take as soon as possible, but DO NOT DOUBLE A DOSE. * Read your medicine information when you get home. * Know all of the side effects of your medicine. * Call your doctor's office if you have any side effects. * Be sure all of your doctors know what medicine and herbs you take (including cold, flu, and herbal medicine). * Pain Medicine: If you do not get relief from your pain, please call your doctor for help. Take the following with you to your follow-up doctor appointments: * Weight Chart * Medication List * List of questions Do not drink excessive alcohol, beer or wine. Prescriptions: New sodium bicarbonate 650 mg Tablet 650 mg PO BID Qty: 60 RF: 5 Continued fluticasone propion-salmeterol [Advair Diskus] 250-50 mcg/dose blister with device 1 puffs INH Q12H Qty: 60 RF: 11 hydralazine 25 mg tablet 25 mg PO TID Qty: 90 RF: 11 ranitidine HCl 150 mg capsule 150 mg PO BID Qty: 60 RF: 11 mupirocin 2 % ointment 1 appln TOP BID Qty: 15 RF: 0 furosemide 40 mg tablet 40 mg PO QAM RF: 0 venlafaxine 75 mg capsule,extended release 24hr 75 mg PO QAM RF: 0 aspirin 81 mg tablet,delayed release (DR/EC) 81 mg PO QAM RF: 0 amlodipine 10 mg tablet 10 mg PO QAM RF: 0 levothyroxine 150 mcg tablet 150 mcg PO QAM RF: 0 vitamin B complex [B Complex-Vitamin B12] tablet 1 tab PO QAM RF: 0 folic acid 1 mg tablet 1 mg PO QAM RF: 0 cholecalciferol (vitamin D3) 400 unit capsule 400 units PO QAM RF: 0 Changed metoprolol tartrate 25 mg tablet 25 mg PO BID Qty: 60 RF: 2 Discontinued ergocalciferol (vitamin D2) 50,000 unit capsule 50,000 units PO WEEKLY Qty: 4 RF: 11 Stand-Alone Forms: [facility]/Other Patient Handouts: Injury Acute Kidney Dc, Disease Chronic Kidney Dc, Stroke Prevent Live W Atrial Fib, ED Afib, ED Diet Renal Discharge Orders: Discharge Order (Routine); Ordered 02/14/19 Ordered By: Rober Rboerson Admission Data Admit Date/Time: 02/13/19 17:45 Attending Provider: Rober Roberson Admit Provider: Chapo Mir Primary Care Provider: Mike Carrington Other Providers: Chapo Mir ; Mike Corral ; Kortney Parikh Service: Telemetry Other Interventions: Discharge Summary Assessment (RN) Last Done: 02/14/19 12:24 Pending Studies at Discharge: No DC Date/Time DO NOT enter until pt leaves facility: 02/14/19 18:45
--- NOTE | 2019-02-14 13:57 | Cardiology Consultation ---
Date of Consultation February 14, 2019 Assessment & Plan (1) Atrial fibrillation with RVR: Rhythm appears to be atrial fibrillation/flutter. Heart rate control is much improved. We discussed the diagnosis in detail. We discussed treatment strategies. Consider metoprolol succinate 50 mg once daily given reduced LV systolic function. Tachycardia may be responsible for her reduced LV systolic function. We also discussed stroke risk reduction with anticoagulation, which was recommended as there is now no documented bleeding. She declines, despite discussing her increased stroke risk. Overcorrected thyroid may also be playing a role in her atrial arrhythmias/rate. Adjustment of thyroid medication as per primary service. (2) Elevated troponin: Troponin slightly elevated but not diagnostic for myocardial infarction. Likely secondary to increased heart rate in the setting of acute on chronic renal insufficiency. She denies any angina or heart failure symptoms. (3) Cardiomyopathy: Severely reduced LV systolic function. Cannot exclude ischemic etiology however given acute on chronic renal insufficiency, would not recommend coronary angiography at this time. LV systolic function may be reduced secondary to prolonged tachycardia. Would recommend optimizing medical therapy with metoprolol succinate in place of metoprolol tartrate and repeating echocardiogram in the future as an outpatient after heart rate remains suitable for some time. CARLOS-inhibitor would be recommended however would not initiate in the setting of acute on chronic renal insufficiency. Volume status appears acc eptable. She is asymptomatic in this regard. She takes Lasix 40 mg once daily at home. (4) Pulmonary hypertension: Etiology uncertain. She does have mildly elevated JVD but otherwise volume status appears acceptable and she is asymptomatic in this regard. She has already been discharged and she does not want to remain hospitalized for any further evaluation. Recommend close follow-up. (5) Mitral regurgitation: Non severe. Asymptomatic. Follow up as outpatient. (6) Acute kidney injury superimposed on chronic kidney disease: Follows with Nephrology. (7) Hypertension: Asymptomatic. Blood pressure still elevated. Adjusting beta-letty as above. Disposition: Patient is discharged and currently waiting for a ride home. She does not wish to remain in the hospital any further today. She has declined anticoagulation therapy. Recommend close cardiology follow-up, with Dr. Grimaldo, who she identifies as her primary butt sawyer. Plan of care discussed with Dr. Palomares, primary hospitalist. Thank you for allowing me to participate in the care of your patient. Please call for any other questions or concerns. Sincerely, Huan Brunner M.D. History of Present Illness Reason for Consultation: Atrial Fibrillation Requesting Physician: Dr. Mir Attending Physician: Rober Roberson History of Present Illness Ms. Figueroa is a 78-year-old female with a history significant for diabetes, CKD, hypertension, hypothyroidism, anemia, and TIA. She came to the emergency department on 02/13/2019 with concern for melena. Two days ago, she was nauseated throughout the day and therefore took Pepto- Bismol. She noticed dark stools that evening and also yesterday morning, prompting a visit to the emergency department. Her stool is reportedly heme- negative. While here, she was noted to be in atrial flutter/fibrillation with rapid ventricular response. She had been taking metoprolol tartrate 25 mg once daily. She denies chest pain, shortness of breath, syncope, near-syncope, palpita tions, edema, orthopnea, PND, hematochezia, or hematuria. Earlier this morning, she had requested that she be discharged and therefore she was discharged late this morning but remains in her room waiting for a ride. In the meantime, her echocardiogram was done and interpreted, demonstrating reduced LV systolic function, pulmonary hypertension, and non severe mitral regurgitation. She states that she has been walking in the hallways today and feels fine and is adamant about going home. Review of systems: As above. Review of systems otherwise negative/unremarkable. Social history: She denies tobacco, alcohol, or drug abuse. She is . Four children, 2 sons and 2 daughters. She lives home alone. She enjoys quilting. She is unaccompanied. Family history: No known premature CAD. Allergies Allergy/AdvReac Type Severity Reaction Status Date / Time doxycycline Allergy Unknown Unknown Unverified 02/13/19 15:01 labetalol Allergy Unknown Unknown Unverified 02/13/19 15:01 lorazepam Allergy Unknown Unknown Unverified 02/13/19 15:01 Pork/Porcine Containing Allergy Unknown unknown Unverified 02/13/19 15:01 Products tetracycline Allergy Unknown unknown(not Unverified 02/13/19 15:01 100% sure if she's allergic to it) tramadol AdvReac Unknown dizzy, Verified 02/13/19 15:01 emesis Home Medications Home Medications Medication Instructions Recorded Confirmed Type mupirocin 2 % topical ointment 1 appln TOP BID #15 gm 01/26/19 02/13/19 Rx fluticasone 250 mcg-salmeterol 50 1 puffs INH Q12H #60 ea 01/28/19 02/13/19 Rx mcg/dose blistr powdr for inhalation hydralazine 25 mg tablet 25 mg PO TID #90 tab 01/28/19 02/13/19 Rx ranitidine 150 mg capsule 150 mg PO BID #60 cap 01/28/19 02/13/19 Rx amlodipine 10 mg PO QAM 02/13/19 02/13/19 History aspirin 81 mg PO QAM 02/13/19 02/13/19 History cholecalciferol (vitamin D3) 400 units PO QAM 02/13/19 02/13/19 History folic acid 1 mg PO QAM 02/13/19 02/13/19 History furosemide 40 mg PO QAM 02/13/19 02/13/19 History levothyroxine 150 mcg PO QAM 02/13/19 02/13/19 History venlafaxine 75 mg PO QAM 02/13/19 02/13/19 History vitamin B complex [B 1 tab PO QAM 02/13/19 02/13/19 History Complex-Vitamin B12] metoprolol tartrate 25 mg PO BID #60 tab 02/14/19 02/13/19 Rx sodium bicarbonate 650 mg PO BID #60 tab 02/14/19 Rx Patient History Medical History Psoriasis Diabetes mellitus with neuropathy (Chronic) Hypertension (Chronic) Hypothyroidism (Chronic) Proteinuria Anemia Anemia associated with chronic renal failure Acute kidney injury superimposed on chronic kidney disease Chronic kidney disease (CKD) stage G4/A2, severely decreased glomerular filtration rate (GFR) between 15-29 mL/min/1.73 square meter and albuminuria creatinine ratio between 30-299 mg/g Dehydration Gastroenteritis Hypertension SIADH (syndrome of inappropriate ADH production) Social History Preferred Language: Citizen Of [place] Communication Ability: Effective Beliefs That Will Affect Care: Anabaptist Anabaptist Beliefs: holiness marital status: Single Current Living Situation: Alone Feels Safe at Home: Yes Smoking Status: Never smoker Hx Alcohol Use: Yes Hx Substance Use: No Physical Exam Physical Exam: Gen.: No acute distress. Alert. HEENT: Anicteric sclera. Neck: Mildly elevated JVD. No bruits. Normal carotid upstrokes bilaterally. Cardiac: PMI was nondisplaced. No ventricular heave. Irregularly irregular, but rate controlled. Normal S1-S2. 1/6 systolic murmur. No rubs, or gallops. Pulmonary: Clear to auscultation bilaterally without wheezes, rales, or rhonchi. Abdomen: Soft, nontender, nondistended, with normoactive bowel sounds. No bruits noted. Extremities: 2+ radial pulses bilaterally. 2+ posterior tibialis pulses bilaterally. No pitting edema or cyanosis. Left lower extremity varicose veins. Psychiatric: Affect appears appropriate. Results & Data Vital Signs (Past 12 Hours) Vital Signs Temp Pulse Pulse Resp BP BP BP 02/14/19 13:43 143/82 H 02/14/19 12:24 36.7 C 93 H 20 182/120 H 150/79 H 02/14/19 09:53 150/79 H 02/14/19 08:00 182/120 H 02/14/19 07:57 36.7 C 93 H 20 156/115 H 02/14/19 04:00 85 18 154/84 H 02/14/19 03:24 36.8 C 87 17 158/96 H 02/14/19 03:11 85 152/104 H Pulse Ox 02/14/19 13:43 02/14/19 12:24 94 02/14/19 09:53 02/14/19 08:00 02/14/19 07:57 94 02/14/19 04:00 95 02/14/19 03:24 92 02/14/19 03:11 Laboratory Results Laboratory Results - last 24 hr 02/13/19 02/13/19 02/13/19 14:41 14:41 14:41 WBC 6.73 RBC 3.85 L Hgb 11.6 L Hct 34.6 L MCV 89.9 MCH 30.1 MCHC 33.5 RDW Std Deviation 48.0 H RDW Coeff of Carlo 14.9 H Plt Count 335 MPV 10.6 H Immature Gran % (Auto) Neut % (Auto) Lymph % (Auto) [place] % (Auto) Eos % (Auto) Baso % (Auto) Reticulocyte % (Auto) Immature Gran # (Auto) Neut # (Auto) Lymph # (Auto) [place] # (Auto) Eos # (Auto) Baso # (Auto) Reticulocyte # Absolute Nucleated RBC Nucleated RBC % (auto) PT Cancelled INR Cancelled APTT Cancelled PTT Ratio Cancelled Sodium 132 L Potassium Chloride 97 L Carbon Dioxide 18 L Anion Gap 17.0 H BUN 64 H Creatinine 3.95 H Est Cr Clr Drug Dosing 10.8 Est GFR ( Amer) 12.0 Est GFR (Non-Af Amer) 10.3 BUN/Creatinine Ratio 16.2 Glucose 83 POC Glucose Lactate Calcium 8.7 Magnesium Iron TIBC Total Bilirubin 1.3 H AST ALT 40 Alkaline Phosphatase 119 H Troponin I NT-Pro-B Natriuret Pep Total Protein 7.6 Albumin 3.8 Globulin 3.8 Albumin/Globulin Ratio 1.0 POC Stool Occult Blood 02/13/19 02/13/19 02/13/19 14:41 14:51 15:34 WBC RBC Hgb Hct MCV MCH MCHC RDW Std Deviation RDW Coeff of Carlo Plt Count MPV Immature Gran % (Auto) Neut % (Auto) Lymph % (Auto) [place] % (Auto) Eos % (Auto) Baso % (Auto) Reticulocyte % (Auto) Immature Gran # (Auto) Neut # (Auto) Lymph # (Auto) [place] # (Auto) Eos # (Auto) Baso # (Auto) Reticulocyte # Absolute Nucleated RBC Nucleated RBC % (auto) PT 13.1 H INR 1.3 H APTT 29.0 PTT Ratio 1.1 Sodium Potassium Chloride Carbon Dioxide Anion Gap BUN Creatinine Est Cr Clr Drug Dosing Est GFR ( Amer) Est GFR (Non-Af Amer) BUN/Creatinine Ratio Glucose POC Glucose Lactate Calcium Magnesium Iron TIBC Total Bilirubin AST ALT Alkaline Phosphatase Troponin I 0.083 H* NT-Pro-B Natriuret Pep Total Protein Albumin Globulin Albumin/Globulin Ratio POC Stool Occult Blood Negative 02/13/19 02/13/19 02/13/19 15:34 19:49 19:49 WBC RBC Hgb Hct MCV MCH MCHC RDW Std Deviation RDW Coeff of Carlo Plt Count MPV Immature Gran % (Auto) Neut % (Auto) Lymph % (Auto) [place] % (Auto) Eos % (Auto) Baso % (Auto) Reticulocyte % (Auto) Immature Gran # (Auto) Neut # (Auto) Lymph # (Auto) [place] # (Auto) Eos # (Auto) Baso # (Auto) Reticulocyte # Absolute Nucleated RBC Nucleated RBC % (auto) PT INR APTT PTT Ratio Sodium Potassium 4.0 Chloride Carbon Dioxide Anion Gap BUN Creatinine Est Cr Clr Drug Dosing Est GFR ( Amer) Est GFR (Non-Af Amer) BUN/Creatinine Ratio Glucose POC Glucose Lactate 1.4 Calcium Magnesium 2.7 H Iron TIBC Total Bilirubin AST 46 H ALT Alkaline Phosphatase Troponin I NT-Pro-B Natriuret Pep > 64506 H Total Protein Albumin Globulin Albumin/Globulin Ratio POC Stool Occult Blood 02/13/19 02/13/19 02/14/19 19:49 19:49 01:23 WBC 6.13 RBC 3.67 L Hgb 10.9 L Hct 33.1 L MCV 90.2 MCH 29.7 MCHC 32.9 RDW Std Deviation 48.9 H RDW Coeff of Carlo 15.1 H Plt Count 289 MPV 10.5 H Immature Gran % (Auto) 0.7 Neut % (Auto) 64.5 Lymph % (Auto) 19.6 [place] % (Auto) 12.4 Eos % (Auto) 1.8 Baso % (Auto) 1.0 Reticulocyte % (Auto) Immature Gran # (Auto) 0.04 H Neut # (Auto) 3.96 Lymph # (Auto) 1.20 [place] # (Auto) 0.76 H Eos # (Auto) 0.11 Baso # (Auto) 0.06 Reticulocyte # Absolute Nucleated RBC 0.06 H Nucleated RBC % (auto) 1.0 PT INR APTT PTT Ratio Sodium Potassium Chloride Carbon Dioxide Anion Gap BUN Creatinine Est Cr Clr Drug Dosing Est GFR ( Amer) Est GFR (Non-Af Amer) BUN/Creatinine Ratio Glucose POC Glucose Lactate Calcium Magnesium Iron TIBC Total Bilirubin AST ALT Alkaline Phosphatase Troponin I 0.078 H* 0.100 H* NT-Pro-B Natriuret Pep Total Protein Albumin Globulin Albumin/Globulin Ratio POC Stool Occult Blood 02/14/19 02/14/19 02/14/19 01:23 01:23 07:52 WBC 5.31 RBC 3.56 L Hgb 10.6 L Hct 32.0 L MCV 89.9 MCH 29.8 MCHC 33.1 RDW Std Deviation 48.5 H RDW Coeff of [place] 14.9 H Plt Count 253 MPV 10.3 Immature Gran % (Auto) 0.6 Neut % (Auto) 59.5 Lymph % (Auto) 19.4 [place] % (Auto) 15.8 Eos % (Auto) 3.6 Baso % (Auto) 1.1 Reticulocyte % (Auto) 2.9 H Immature Gran # (Auto) 0.03 H Neut # (Auto) 3.16 Lymph # (Auto) 1.03 L [place] # (Auto) 0.84 H Eos # (Auto) 0.19 Baso # (Auto) 0.06 Reticulocyte # 0.10 Absolute Nucleated RBC 0.04 H Nucleated RBC % (auto) 0.8 PT INR APTT PTT Ratio Sodium 134 L Potassium 3.9 Chloride 100 Carbon Dioxide 18 L Anion Gap 16.0 H BUN 63 H Creatinine 3.92 H Est Cr Clr Drug Dosing 10.9 Est GFR ( Amer) 12.1 Est GFR (Non-Af Amer) 10.4 BUN/Creatinine Ratio 16.0 Glucose 67 L POC Glucose Lactate Calcium 8.3 L Magnesium Iron 51 TIBC 280 Total Bilirubin 1.1 H AST 44 H ALT 36 Alkaline Phosphatase 107 Troponin I 0.069 H* NT-Pro-B Natriuret Pep Total Protein 6.4 Albumin 3.2 L Globulin 3.2 Albumin/Globulin Ratio 1.0 POC Stool Occult Blood 02/14/19 02/14/19 02/14/19 08:29 08:30 09:00 WBC RBC Hgb Hct MCV MCH MCHC RDW Std Deviation RDW Coeff of Carlo Plt Count MPV Immature Gran % (Auto) Neut % (Auto) Lymph % (Auto) [place] % (Auto) Eos % (Auto) Baso % (Auto) Reticulocyte % (Auto) Immature Gran # (Auto) Neut # (Auto) Lymph # (Auto) [place] # (Auto) Eos # (Auto) Baso # (Auto) Reticulocyte # Absolute Nucleated RBC Nucleated RBC % (auto) PT INR APTT PTT Ratio Sodium Potassium Chloride Carbon Dioxide Anion Gap BUN Creatinine Est Cr Clr Drug Dosing Est GFR ( Amer) Est GFR (Non-Af Amer) BUN/Creatinine Ratio Glucose POC Glucose 65 L* 62 L* 137 H Lactate Calcium Magnesium Iron TIBC Total Bilirubin AST ALT Alkaline Phosphatase Troponin I NT-Pro-B Natriuret Pep Total Protein Albumin Globulin Albumin/Globulin Ratio POC Stool Occult Blood Diagnostic Findings Telemetry personally reviewed: Afib/flutter. HR has improved throughout hospital stay. ECGs personally reviewed: ECG 02/13/2018 at 4:12 p.m.: Atrial fibrillation/flutter 89 bpm. PVC versus aberrantly conducted complex. LVH. Lateral T-wave inversion. ECG 02/13/2019 at 2:10 p.m.: Atrial flutter with variable AV block. 135 bpm. LVH with repolarization abnormality (inverted lateral T-waves). Echo 02/14/2018: Top-normal LV size with severely reduced systolic function. EF 25-30%. Global hypokinesis. Mild LVH. Moderately reduced RV systolic function. Biatrial dilation. Moderate MR. RVSP 52. CXR 02/13/19: mild pulm hypertension per radiology. Medications Administered Current Inpatient Medications Acetaminophen (Tylenol) 650 mg PO Q4H PRN PRN Reason: Pain or Fever Stop: 03/15/19 19:38 Amlodipine Besylate (Norvasc) 10 mg PO [facility] Stop: 03/16/19 08:59 Last Admin: 02/14/19 08:20 Dose: 10 mg Documented by: Aspirin (Ecotrin Ectab) [facility] Stop: 03/16/19 08:59 Last Admin: 02/14/19 08:20 Dose: 81 mg Documented by: Cyanocobalamin (Vitamin B-12) 500 mcg PO QAM [facility] Stop: 03/16/19 08:59 Last Admin: 02/14/19 08:20 Dose: 500 mcg Documented by: Ergocalciferol (Vitamin D2) 50,000 units PO Q7D [facility] Stop: 03/16/19 08:59 Last Admin: 02/14/19 08:20 Dose: 50,000 units Documented by: Folic Acid (Folvite) 1 mg PO QAM [facility] Stop: 03/16/19 08:59 Last Admin: 02/14/19 08:20 Dose: 1 mg Documented by: Furosemide (Lasix) 40 mg PO QAM [facility] Stop: 03/16/19 08:59 Last Admin: 02/14/19 08:20 Dose: 40 mg Documented by: Hydralazine HCl (Apresoline) 25 mg PO TID [facility] Stop: 03/15/19 20:59 Last Admin: 02/14/19 13:45 Dose: 25 mg Documented by: Dextrose/Sodium Chloride (D5w And Nss) 1,000 mls @ 50 mls/hr IV .Q20H [facility] Stop: 03/16/19 08:44 Last Infusion: 02/14/19 11:00 Dose: Infused Documented by: Levothyroxine Sodium (Synthroid) 150 mcg PO DAILYBB [facility] Stop: 03/16/19 06:29 Last Admin: 02/14/19 05:59 Dose: 150 mcg Documented by: Metoprolol Tartrate (Lopressor) 25 mg PO QAM [facility] Stop: 03/15/19 20:29 Last Admin: 02/14/19 08:20 Dose: 25 mg Documented by: Mupirocin (Bactroban 2%) 1 appln TOP BID [facility] Stop: 03/15/19 20:59 Last Admin: 02/14/19 08:21 Dose: 1 appln Documented by: Ranitidine HCl (Zantac) 150 mg PO BID [facility] Stop: 03/15/19 20:59 Last Admin: 02/14/19 08:20 Dose: 150 mg Documented by: Fluticasone/Salmeterol (Advair Diskus 250/50) 1 puffs INH Q12H [facility] Stop: 03/15/19 20:59 Last Admin: 02/14/19 08:21 Dose: 1 puffs Documented by: Sodium Bicarbonate (Sodium Bicarbonate) 650 mg PO BID [facility] Stop: 03/16/19 09:29 Last Admin: 02/14/19 12:03 Dose: 650 mg Documented by: Venlafaxine HCl (Effexor Extended Release) 75 mg PO QAM [facility] Stop: 03/16/19 08:59 Last Admin: 02/14/19 08:20 Dose: 75 mg Documented by: Vitamin D (Vitamin D3) 400 units PO QAM [facility] Stop: 03/16/19 08:59 Last Admin: 02/14/19 08:21 Dose: 400 units Documented by: Zolpidem Tartrate (Ambien) 5 mg PO HS PRN PRN Reason: Sleep Stop: 03/15/19 19:38 PG Care Time/CCT Total # of Minutes Spent Total Time Spent with Patient: Total time spent is greater than 50% in coordination of care (as documented) at patient's floor/unit and/or counseling patient:
== END 2019-02-14 18:45 | disposition home health service (06) | DRG 683 ==
LOC: ED 14:06 → 2S 17:45 → SUATTDRO 17:45 → 2S 19:15

== ENCOUNTER 2019-03-21 13:01 | Inpatient (IN) ==
[2019-03-21 16:19] LABS: Basophils # (auto) 0.02 K/uL (0-0.2); Basophils % (auto) 0.3 %; Eosinophils # (auto) 0.18 K/uL (0-0.5); Hematocrit (blood only) 36.1 % (37-47); Hemoglobin 11.6 g/dL (12.0-16.0); Immature Granulocytes # (auto) 0.02 K/uL (0.00-0.02); Immature Granulocytes % (auto) 0.3 %; Lymphocytes # (auto) 0.77 K/uL (1.2-3.4); Lymphocytes % (auto) 12.9 %; Mean Corpuscular Hemoglobin 29.1 pg (25-34); Mean Corpuscular Hgb Conc 32.1 g/dL (32-36); Mean Corpuscular Volume 90.7 fL (80-100); Mean Platelet Volume 11.7 fL (7.4-10.4); Monocytes % (auto) 8.4 %; Neutrophils # (auto) 4.47 K/uL (1.4-6.5); Neutrophils % (auto) 75.1 %; Platelet Count 192 K/uL (130-400); RDW Coefficient of Variation 16.3 % (11.5-14.5); RDW Standard Deviation 53.5 fL (36.4-46.3); Red Blood Count 3.98 M/uL (4.2-5.4); White Blood Count 5.96 K/uL (4.8-10.8)
[2019-03-21 16:28] LABS: INR 1.1 (0.9-1.1); Prothrombin Time 10.9 Seconds (9.0-12.0)
[2019-03-21 16:36] LABS: Alanine Aminotransferase 15 U/L (12-78); Albumin Level 3.9 gm/dl (3.4-5.0); Aspartate Aminotransferase 19 U/L (15-37); BUN Creatinine Ratio 15.1 (10-20); Blood Urea Nitrogen 50 mg/dl (7-18); Calcium 8.7 mg/dl (8.5-10.1); Carbon Dioxide 22 mmol/L (21-32); Chloride 103 mmol/L (98-107); Creatinine Clr Calc Pharmacy 11.8 ml/min; Est GFR (African American) 14.8; Est GFR (Non-African American) 12.7; Glucose 80 mg/dl (70-99); Lipase 72 U/L (73-393); Potassium 4.6 mmol/L (3.5-5.1); Sodium 137 mmol/L (136-145)
[2019-03-21 16:41] LABS: Alkaline Phosphatase 78 U/L (45-117); Bilirubin,Total 0.8 mg/dl (0.2-1); Globulin 3.8 gm/dl (2.5-4.0); Total Protein 7.7 gm/dl (6.4-8.2); Troponin I < 0.015 ng/ml (0-0.045)
[2019-03-21] MEDS ORDERED: METOPROLOL TARTRATE 50 MG TAB PO STA (17:20)
[2019-03-21] MEDS ORDERED: SODIUM CHLORIDE 0.9% 500 ML IV ONE (17:35)
--- NOTE | 2019-03-21 18:29 | Emergency Department Note ---
Entered by Saba Garcia acting as a scribe for Hemant Donald DO History of Present Illness General Chief complaint: Foot Injury/Pain Stated complaint: BLEEDING BOTH FEET Source: patient History of Present Illness Onset (ago): week(s) Location: foot (bilateral) Pain Consistency: + other (episode) Maximum Pain Intensity: 7 Quality: + other (bleeding) Associated symptoms: + other (-abdominal pain; -diarrhea); no chest pain, no nausea/vomiting and no shortness of breath The patient is a 78 year old female who presents to the Emergency Room with complaints of an episode of bleeding to underside of both feet that has lasted for about a week. The patient states she has not been able to get the bleeding to stop. The patient notes she has been getting treatment for psoriasis for years. The patient notes she see Dr. Haas-Dermatolgist, and the patient states she last saw Dr. Haas a few weeks ago. The patient denies nausea, vomiting, abdominal pain, or diarrhea. The patient states she has been put on Eliquis for A Fib, but the patient states she does not like or want to take the blood thinner because "she does not like the way it makes her feel". Patient denies any chest pain, shortness of breath, nausea vomiting or diarrhea. She notes that she has been taking her medications as previously prescribed. Home Medications Home Medications Medication Instructions Recorded Confirmed Type mupirocin 2 % topical ointment 1 appln TOP BID #15 gm 01/26/19 03/21/19 Rx fluticasone 250 mcg-salmeterol 50 1 puffs INH Q12H #60 ea 01/28/19 03/21/19 Rx mcg/dose blistr powdr for inhalation hydralazine 25 mg tablet 25 mg PO TID #90 tab 01/28/19 03/21/19 Rx ranitidine 150 mg capsule 150 mg PO BID #60 cap 01/28/19 03/21/19 Rx amlodipine 10 mg PO QAM 02/13/19 03/21/19 History aspirin 81 mg PO QAM 02/13/19 03/21/19 History cholecalciferol (vitamin D3) 400 units PO QAM 02/13/19 03/21/19 History folic acid 1 mg PO QAM 02/13/19 03/21/19 History furosemide 40 mg PO QAM 02/13/19 03/21/19 History levothyroxine 150 mcg PO QAM 02/13/19 03/21/19 History venlafaxine 75 mg PO QAM 02/13/19 03/21/19 History vitamin B complex [B 1 tab PO QAM 02/13/19 03/21/19 History Complex-Vitamin B12] sodium bicarbonate 650 mg PO BID #60 tab 02/14/19 03/21/19 Rx metoprolol tartrate 25 mg PO BID 03/21/19 03/21/19 History Allergies Allergy/AdvReac Type Severity Reaction Status Date / Time doxycycline Allergy Unknown Unknown Unverified 03/03/19 13:26 labetalol Allergy Unknown Unknown Unverified 03/03/19 13:26 lorazepam Allergy Unknown Unknown Unverified 03/03/19 13:26 Pork/Porcine Containing Allergy Unknown unknown Unverified 03/03/19 13:26 Products tetracycline Allergy Unknown unknown(not Unverified 03/03/19 13:26 100% sure if she's allergic to it) tramadol AdvReac Unknown dizzy, Verified 03/03/19 13:26 emesis Past Med/Surg History Medical History Psoriasis Diabetes mellitus with neuropathy (Chronic) Hypertension (Chronic) Hypothyroidism (Chronic) Proteinuria Anemia Anemia associated with chronic renal failure Acute kidney injury superimposed on chronic kidney disease Chronic kidney disease (CKD) stage G4/A2, severely decreased glomerular filtra tion rate (GFR) between 15-29 mL/min/1.73 square meter and albuminuria creatinine ratio between 30-299 mg/g Dehydration Gastroenteritis Hypertension (Acute) SIADH (syndrome of inappropriate ADH production) Social History Preferred Language: [place] Communication Ability: Effective Beliefs That Will Affect Care: Mandaen Mandaen Beliefs: confucianism marital status: Single Current Living Situation: Alone Feels Safe at Home: Yes Smoking Status: Never smoker Hx Alcohol Use: Yes Hx Substance Use: No Review of Systems See HPI for pertinent positives & negatives. and A total of 10 systems reviewed and were otherwise negative Physical Exam Vital Signs Vital Signs - 24 hr 03/21/19 13:10 03/21/19 16:18 03/21/19 17:00 Temperature 36.7 C Temperature Source Oral Sepsis Recent Fever Within 48 Hours No Sepsis New/Unexplained Change in Mental Status No Sepsis Action Taken by Nursing No Action Required Pulse Rate 113 H 113 H Pulse Rate [Apical] 94 H 113 H Pulse Rhythm [Apical] Irregular Irregular Pulse Strength [Apical] Normal Normal Respiratory Rate 16 20 20 Respiratory Effort / Characteristics Non-Labored Spontaneous Non-Labored Spontaneous Respiratory Depth Normal Normal Blood Pressure 175/105 H Blood Pressure [Right Arm] 157/107 H 154/100 H Blood Pressure Mean 128 Blood Pressure Mean [Right Arm] 123 118 Blood Pressure Position [Right Arm] Lying Lying Pulse Oximetry 94 96 96 Oxygen Delivery Method Room Air Room Air Room Air 03/21/19 17:30 03/21/19 18:22 Temperature Temperature Source Sepsis Recent Fever Within 48 Hours Sepsis New/Unexplained Change in Mental Status Sepsis Action Taken by Nursing Pulse Rate Pulse Rate [Apical] 123 H 117 H Pulse Rhythm [Apical] Irregular Irregular Pulse Strength [Apical] Normal Normal Respiratory Rate 20 20 Respiratory Effort / Characteristics Non-Labored Spontaneous Non-Labored Spontaneous Respiratory Depth Normal Normal Blood Pressure Blood Pressure [Right Arm] 172/106 H 143/108 H Blood Pressure Mean Blood Pressure Mean [Right Arm] 128 119 Blood Pressure Position [Right Arm] Lying Lying Pulse Oximetry 96 96 Oxygen Delivery Method Room Air Room Air GENERAL: Sitting up in bed, alert, no acute distress, talking in full sentences EYE EXAM: normal conjunctiva. OROPHARYNX: no exudate, no erythema, lips, buccal mucosa, and tongue normal and mucous membranes are dry NECK: supple, no nuchal rigidity, no adenopathy, non-tender LUNGS: Diminished at bilateral bases. Normal chest wall mechanics HEART: Tachycardic and irregularly irregular, S1 normal and S2 normal ABDOMEN: abdomen soft, non-tender, normo-active bowel sounds, no masses, no rebound or guarding. BACK: Back is symmetrical on inspection and there is no deformity, no midline tenderness, no CVA tenderness. SKIN: no rashes and no bruising UPPER EXTREMITIES: upper extremities are grossly normal. LOWER EXTREMITIES: Right foot base with small ulcers which are bleeding and cracks within the feet. Left foot with small cracks in the base with active bleeding at the base of the heel. This stopped with a small amount of pressure. NEURO EXAM: Normal sensorium, cranial nerves II-XII grossly intact, normal speech, no gross weakness of arms, no gross weakness of legs. Course ED COURSE: Vital signs were reviewed and showed hypertensive. The patients medical record was reviewed The above diagnostic studies were performed and reviewed. ED treatments and interventions as stated above. 1518: The patient was evaluated in room A2. A complete history and physical examination was performed. 1704: I reevaluated and updated the patient on her case. 1715: I discussed the patient's case with Dr. Clemens who recommonds the bring the patient in. 1720: I reviewed the patient's case with Dr. Carney-[facility] Hospitalist. Dr. Carney will evaluate the patient for further management. Based on the patients age, coexisting illnesses, exam and lab findings the decision to treat as an inpatient was made. The patient remained stable while under my care. The patient will be evaluated for further management. Consultations Consultation #1: I discussed the patient's case with Dr. Clemens who recommonds the bring the patient in. Time: 17:15 Consultation #2: I reviewed the patient's case with Dr. Carney-[facility] Hospitalist. Dr. Carney will evaluate the patient for further management. Time: 17:20 Administered Medications Discontinued Medications Sodium Chloride (Nss) 500 mls @ 999 mls/hr IV .Q31M ONE Stop: 03/21/19 18:05 Last Admin: 03/21/19 18:08 Dose: 999 mls/hr [place]ed by: [id number] Metoprolol Tartrate (Lopressor) 25 mg PO NOW STA Stop: 03/21/19 17:21 Last Admin: 03/21/19 18:07 Dose: 25 mg Documented by: [id number] Medical Decision Making Differential Diagnosis Differential diagnosis includes etiologies such as ectopic , dysfunction uterine bleeding, bleeding dyscrasia, trauma, infection, as well as others were entertained. Medical Records Attestation: I reviewed the patient's medical records. Home Medications Current Medication List: was personally reviewed by me Laboratory Data Attestation: I reviewed the patient's lab results. Result diagrams: 03/21/19 16:13 03/21/19 16:13 Lab Results 03/21/19 03/21/19 03/21/19 Range/Units 16:13 16:13 16:13 WBC 5.96 (4.8-10.8) K/uL RBC 3.98 L (4.2-5.4) M/uL Hgb 11.6 L (12.0-16.0) g/dL Hct 36.1 L (37-47) % MCV 90.7 (80-100) fL MCH 29.1 (25-34) pg MCHC 32.1 (32-36) g/dL RDW Std Deviation 53.5 H (36.4-46.3) fL RDW Coeff of Carlo 16.3 H (11.5-14.5) % Plt Count 192 (130-400) K/uL MPV 11.7 H (7.4-10.4) fL Immature Gran % (Auto) 0.3 % Neut % (Auto) 75.1 % Lymph % (Auto) 12.9 % Smyth % (Auto) 8.4 % Eos % (Auto) 3.0 % Baso % (Auto) 0.3 % Immature Gran # (Auto) 0.02 (0.00-0.02) K/uL Neut # (Auto) 4.47 (1.4-6.5) K/uL Lymph # (Auto) 0.77 L (1.2-3.4) K/uL Smyth # (Auto) 0.50 (0.11-0.59) K/uL Eos # (Auto) 0.18 (0-0.5) K/uL Baso # (Auto) 0.02 (0-0.2) K/uL PT 10.9 (9.0-12.0) Seconds INR 1.1 (0.9-1.1) Sodium 137 (136-145) mmol/L Potassium 4.6 (3.5-5.1) mmol/L Chloride 103 (98-107) mmol/L Carbon Dioxide 22 (21-32) mmol/L Anion Gap 12.0 H (3-11) BUN 50 H (7-18) mg/dl Creatinine 3.32 H (0.6-1.2) mg/dl Est Cr Clr Drug Dosing 11.8 ml/min Est GFR ( Amer) 14.8 Est GFR (Non-Af Amer) 12.7 BUN/Creatinine Ratio 15.1 (10-20) Glucose 80 (70-99) mg/dl Calcium 8.7 (8.5-10.1) mg/dl Total Bilirubin 0.8 (0.2-1) mg/dl AST 19 (15-37) U/L ALT 15 (12-78) U/L Alkaline Phosphatase 78 (45-117) U/L Troponin I < 0.015 (0-0.045) ng/ml Total Protein 7.7 (6.4-8.2) gm/dl Albumin 3.9 (3.4-5.0) gm/dl Globulin 3.8 (2.5-4.0) gm/dl Albumin/Globulin Ratio 1.0 (0.9-2) Lipase 72 L (73-393) U/L Blood Pressure Blood Pressure Findings: Elevated blood pressure Blood Pressure Disposition: further management by hospitalist MDM Narrative Patient is a 78-year-old female who presents the ER for bleeding on her bilateral feet. She notes this has been going off and on for several weeks. She denies taking any blood thinners although notes that she should be taking Eliquis. She notes that she has talked with cardiology and does not want to take it and knows that she should be taking it secondary to her A. fib. IV was established blood work was obtained. She was tachycardic in the low 120s. This was A. fib with RVR based on EKG. She missed her midday dose of metoprolol which she was given here. Labs showed no significant leukocytosis or anemia. INR was unremarkable. BMP with a creatinine 3.32 and a BUN of 50. Discussed with Dr. Hart from nephrology who knows this patient well and notes that the patient is extremely noncompliant. She recommends IV hydration and observation overnight as she is extremely noncompliant. Patient was given a bolus of IV fluids. She was updated bedside. She was given her home dose metoprolol due to the A. fib with RVR. Troponin was negative. Lipase is negative. Patient family were updated bedside. Discussed with the hospitalist for observation secondary to RALPH with a rising creatinine. Impression & Plan Hypertension, RALPH (acute kidney injury), CKD (chronic kidney disease) Discharge Plan Visit Data Chief Complaint: Foot Injury/Pain Stated Complaint: BLEEDING BOTH FEET ED Provider: Hemant Donald Discharge Problem: Hypertension, RALPH (acute kidney injury), CKD (chronic kidney disease) Patient Disposition: Being Evaluated by Hospitalist Forms Stand Alone Forms: My [facility] Prescriptions Prescriptions: No Action fluticasone propion-salmeterol [Advair Diskus] 250-50 mcg/dose blister with de vice 1 puffs INH Q12H Qty: 60 RF: 11 hydralazine 25 mg tablet 25 mg PO TID Qty: 90 RF: 11 ranitidine HCl 150 mg capsule 150 mg PO BID Qty: 60 RF: 11 mupirocin 2 % ointment 1 appln TOP BID Qty: 15 RF: 0 furosemide 40 mg tablet 40 mg PO QAM RF: 0 venlafaxine 75 mg capsule,extended release 24hr 75 mg PO QAM RF: 0 aspirin 81 mg tablet,delayed release (DR/EC) 81 mg PO QAM RF: 0 amlodipine 10 mg tablet 10 mg PO QAM RF: 0 levothyroxine 150 mcg tablet 150 mcg PO QAM RF: 0 vitamin B complex [B Complex-Vitamin B12] tablet 1 tab PO QAM RF: 0 folic acid 1 mg tablet 1 mg PO QAM RF: 0 cholecalciferol (vitamin D3) 400 unit capsule 400 units PO QAM RF: 0 sodium bicarbonate 650 mg Tablet 650 mg PO BID Qty: 60 RF: 5 metoprolol tartrate 25 mg tablet 25 mg PO BID RF: 0 Referrals Referrals: Mike Carrington MD [Primary Care Provider] - Discharge Problem: Hypertension Qualifiers: Hypertension type: unspecified Qualified Code(s): I10 - Essential (primary) hypertension CKD (chronic kidney disease) Qualifiers: Chronic kidney disease stage: unspecified stage Qualified Code(s): N18.9 - Chronic kidney disease, unspecified The scribe's documentation has been prepared under my direction and personally reviewed by me in its entirety. I confirm that the note above accurately reflects all work, treatment, procedures, and medical decision making performed by me.
[2019-03-21] MEDS ORDERED: MAGNESIUM HYDROXIDE SUSP 30 ML UDC PO PRN (22:24)
[2019-03-21] MEDS ORDERED: POLYETHYLENE (MIRALAX) 17 GM PACK PO PRN (22:24)
[2019-03-21] MEDS ORDERED: ZOLPIDEM TARTRATE 5 MG TAB PO PRN (22:24)
[2019-03-21] MEDS ORDERED: ACETAMINOPHEN 325 MG TAB PO PRN (22:24)
[2019-03-21] MEDS ORDERED: ALUMINUM/MAGNESIUM SUSP 30 ML UDC PO PRN (22:24)
[2019-03-21] MEDS: SODIUM CHLORIDE 0.9% 1000ML 1,000 ML IV SCH (23:20)
--- NOTE | 2019-03-22 00:34 | History & Physical Report ---
Date of Service March 22, 2019 Assessment & Plan (1) RALPH (acute kidney injury): Baseline creatinine is 2.[address] Parikh, creatinine today is 3.3. Possibly decrease oral intake Gentle IV fluid hydration Continue supportive care (2) CKD (chronic kidney disease): Chronic kidney disease stage IV Currently has acute on chronic as above (3) Systolic CHF: Chronic systolic congestive heart failure, appears to be compensated, no acute exacerbation (4) Atrial fibrillation with RVR: Responded to 1 bolus of normal saline 500 normal saline and 1 dose of metoprolol 25 mg p.o. (5) Diabetes mellitus with neuropathy: Does not appear to be taking any medications for it Ordered hemoglobin A1c Ordered sliding scale insulin (6) Psoriasis: Wound care consult for her bleeding chanelle Until seen by wound care nurse will use [facility] (7) Hypertension: Continue amlodipine/hydralazine/metoprolol (8) Hypothyroidism: Check TSH Continue Synthroid History of Present Illness 78-year-old female with past medical history of diabetes mellitus with neuropathy, essential hypertension, hypothyroidism, chronic anemia, chronic kidney disease stage III-IV, atrial fibrillation, cardiomyopathy with severely reduced systolic function presumed to be ischemic in nature and lack of compliance. Presented to the ED with dry bleeding heels. 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 When arrived to ER she was found to have a heart rate of 123, blood pressure was also borderline elevated. She was noticed to be dehydrated, ED physician give her a bolus of 500 cc and metoprolol 25 mg p.o. x1, heart rate significantly improved and she will be admitted for further evaluation and management, wound care for her both ulcers and her heels Primary Care Provider: Enzo Carrington MD Allergies Allergy/AdvReac Type Severity Reaction Status Date / Time doxycycline Allergy Unknown Unknown Unverified 03/03/19 13:26 labetalol Allergy Unknown Unknown Unverified 03/03/19 13:26 lorazepam Allergy Unknown Unknown Unverified 03/03/19 13:26 Pork/Porcine Containing Allergy Unknown unknown Unverified 03/03/19 13:26 Products tetracycline Allergy Unknown unknown(not Unverified 03/03/19 13:26 100% sure if she's allergic to it) tramadol AdvReac Unknown dizzy, Verified 03/03/19 13:26 emesis Home Medications Home Medications Medication Instructions Recorded Confirmed Type mupirocin 2 % topical ointment 1 appln TOP BID #15 gm 01/26/19 03/21/19 Rx fluticasone 250 mcg-salmeterol 50 1 puffs INH Q12H #60 ea 01/28/19 03/21/19 Rx mcg/dose blistr powdr for inhalation hydralazine 25 mg tablet 25 mg PO TID #90 tab 01/28/19 03/21/19 Rx ranitidine 150 mg capsule 150 mg PO BID #60 cap 01/28/19 03/21/19 Rx amlodipine 10 mg PO QAM 02/13/19 03/21/19 History aspirin 81 mg PO QAM 02/13/19 03/21/19 History cholecalciferol (vitamin D3) 400 units PO QAM 02/13/19 03/21/19 History folic acid 1 mg PO QAM 02/13/19 03/21/19 History furosemide 40 mg PO QAM 02/13/19 03/21/19 History levothyroxine 150 mcg PO QAM 02/13/19 03/21/19 History venlafaxine 75 mg PO QAM 02/13/19 03/21/19 History vitamin B complex [B 1 tab PO QAM 02/13/19 03/21/19 History Complex-Vitamin B12] sodium bicarbonate 650 mg PO BID #60 tab 02/14/19 03/21/19 Rx metoprolol tartrate 25 mg PO BID 03/21/19 03/21/19 History Past Med/Surg History Medical History Psoriasis Diabetes mellitus with neuropathy (Chronic) Hypertension (Chronic) Hypothyroidism (Chronic) Proteinuria Anemia Anemia associated with chronic renal failure Acute kidney injury superimposed on chronic kidney disease Chronic kidney disease (CKD) stage G4/A2, severely decreased glomerular filtration rate (GFR) between 15-29 mL/min/1.73 square meter and albuminuria creatinine ratio between 30-299 mg/g Dehydration Gastroenteritis Hypertension (Acute) SIADH (syndrome of inappropriate ADH production) Social History Preferred Language: Wallisian Communication Ability: Effective Wellness Assistant Required: No Beliefs That Will Affect Care: None marital status: Single Current Living Situation: Alone Other Information That Helps Us Care for You: No Feels Safe at Home: Yes Safety Concerns: Feels Safe At This Time Smoking Status: Never smoker Hx Alcohol Use: No Hx Substance Use: No Review of Systems Review of Systems: Review of system Constitutional: No fever / no chills / no sweats / no weakness / no fatigue Eyes: no blurring of vision / no eye pain / no discharge / no redness ENT: no hearing loss / no epistaxis /no swallowing problems Respiratory: no cough / no wheezing / no SOB / no hemoptysis Cardiovascular: no Chest pain / no lower extremity edema / no palpitation Abdomen: no pain / no nausea / no vomiting / no constipation Musculoskeletal: The only concern she has is bleeding ulcers in her heels all the rest of the review of systems Genitourinary: no dysuria / no incontinence / no urinary retention Neurologic: no focal weakness / no numbness/tingling / no ataxia Psychiatric: no depression symptoms / no anxiety / no insomnia Endocrine: no excessive thirst / no excessive urination Hematologic: no abnormal bleeding / no bruising / no LN swelling Skin: No rash / no pallor Physical Exam Physical Exam: Physical examination General patient appears to be comfortable, not in acute distress HEENT: Atraumatic , normocephalic /no jaundice /no pallor /anicteric /no dry mucous membrane /normal external ear inspection Neck: Supple /no swelling /central trach Heart: S1/S2 normal/regular rate and rhythm/no gallop /no rub /no murmur Lungs: Clear to auscultation bilaterally/normal chest with expansion/no rhonchi/no rales/no wheezing/no use of accessory muscles of respiration Abdomen: Soft/nontender/no guarding/no rebound/no organomegaly/no pulsatile mass Musculoskeletal: No swelling/no edema/no tenderness/normal range of motion Neuro exam: Awake alert oriented 3/cranial nerves II through XII appear to be intact/sensation intact/moves all extremities/no abnormal movements Psychiatric evaluation: No depressed mood/normal affect Skin: Dry skin, multiple superficial ulcers in both feet, appears to be bleeding, does not appear to be infected Extremity: Normal pulse/no pitting edema/no clubbing or cyanosis Results & Data Vital Signs (Past 12 Hours) Vital Signs Temp Pulse Pulse Resp BP BP Pulse Ox 03/21/19 23:21 36.3 C L 97 H 18 141/109 H 94 03/21/19 22:54 77 16 158/98 H 94 03/21/19 22:04 84 16 158/98 H 95 03/21/19 21:07 85 14 94 03/21/19 20:01 79 16 151/100 H 95 03/21/19 18:57 85 16 184/72 H 94 03/21/19 18:22 117 H 20 143/108 H 96 03/21/19 17:30 123 H 20 172/106 H 96 03/21/19 17:00 113 H 20 154/100 H 96 03/21/19 16:18 113 H 94 H 20 157/107 H 96 03/21/19 13:10 36.7 C 113 H 16 175/105 H 94 Code Status & VTE Plan VTE Prophylaxis Plan VTE Prophylaxis will be ordered: Yes PG Care Time/CCT Total # of Minutes Spent Total Time Spent with Patient: 35 minutes total time spent is greater than 50% in coordination of care (as documented) at patient's floor/unit and/or counseling patient/family discussion of care with nursing staff (1) CKD (chronic kidney disease) Chronic kidney disease stage: unspecified stage Qualified Code(s): N18.9 - Chronic kidney disease, unspecified (2) Hypertension Hypertension type: unspecified Qualified Code(s): I10 - Essential (primary) hypertension
[2019-03-22] MEDS ORDERED: GLUCOSE 10 TABS/TUBE PO PRN (00:40)
[2019-03-22] MEDS ORDERED: GLUCOSE 40% GEL 15 GM TUBE PO PRN (00:40)
[2019-03-22] MEDS ORDERED: CARBOHYDRATES FOR HYPOGLYCEMIA PO PRN (00:40)
[2019-03-22] MEDS ORDERED: DEXTROSE 50% 50 ML SYRINGE IV PRN (00:40)
[2019-03-22] MEDS ORDERED: GLUCAGON FOR INJ 1 MG VIAL SQ PRN (00:40)
[2019-03-22] MEDS: LEVOTHYROXINE SODIUM 150 MCG TABLET PO SCH (05:48)
[2019-03-22 07:02] LABS: Estimated Average Glucose 108 mg/dl; Hemoglobin A1C 5.4 % (4.5-5.6)
[2019-03-22] MEDS ORDERED: INSULIN ASPART 100 UNITS/ML 3 ML PEN SC SCH (07:30)
[2019-03-22] MEDS: ASPIRIN 81 MG ECTAB PO SCH (07:59)
[2019-03-22] MEDS: SODIUM BICARBONATE 650 MG TAB PO SCH ×2 (08:00→21:07)
[2019-03-22] MEDS: VENLAFAXINE HCL XR 75 MG CAPXR PO SCH (08:00)
[2019-03-22] MEDS: FLUTICASONE/SALMETEROL 250/50 (ADVAIR) 14 PUFF/1 INHALER INH SCH ×2 (08:01→21:08)
[2019-03-22] MEDS: FOLIC ACID 1 MG TAB PO SCH (08:01)
[2019-03-22] MEDS: AMLODIPINE BESYLATE 5 MG TAB PO SCH (08:01)
[2019-03-22 08:26] LABS: Appearance Urine Clear (Clear); Bacteria Urine Automated Negative (Negative); Bilirubin Urine Negative (Negative); Blood Urine Trace (Negative); Color Urine Yellow; Epithelial Cell Urine Auto >30 /lpf (0-5); Glucose Urine UA Negative (Negative); Ketones Urine Negative (Negative); Leukocyte Esterase Urine Negative (Negative); Nitrite Urine Negative (Negative); Protein Urine 3+ (Negative); RBC Urine Automated 0-4 /hpf (0-4); Specific Gravity Urine 1.015 (1.000-1.030); Urobilinogen Urine Negative (Negative); pH Urine 5.5 (4.5-7.5)
--- NOTE | 2019-03-22 08:34 | Hospitalist Progress Note ---
Date of Service March 22, 2019 Assessment & Plan (1) Tinea pedis: Stop bacitracin and start terbinafine cream BID (she thinks she may have been on this from her superintendent horticulture). Called pharmacy and no prescribed oral anti-fungals therefore will defer starting these at present as she has close follow up with her superintendent horticulture who likely has a culture. Wound care management for ulcers. As per outpatient note from her hiv/aids care nurse in October these appear to be chronic issues. (2) RALPH (acute kidney injury): Main reason patient was admitted, likely pre-renal 2/2 diuretic use and reduced oral intake. Hypovolemic on exam. Cr improved slightly with gentle IV fluids overnight. Baseline creatinine is 2.[address] Parikh, creatinine today is 3.1. Gentle IV fluid hydration, monitor for signs of pulmonary edema. Holding lasix. (3) CKD (chronic kidney disease): Chronic kidney disease stage IV Currently has acute on chronic as above (4) Atrial fibrillation with RVR: Responded to 1 bolus of normal saline 500 normal saline and 1 dose of metoprolol 25mg PO. Recently diagnosed in February. Will switch metoprolol to carvedilol for better BP control. Repeat echo as outpatient given significant cardiomyopathy (assumed ischemic although possibility decreased due to rate on last admission). CXR to assess for pulmonary edema. (5) Systolic CHF: Chronic systolic congestive heart failure, appears to be compensated, no acute exacerbation. Switching metoprolol to carvedilol, no ACEi given RALPH. Holding lasix. No significant pulmonary edema on CXR or exam (6) Diabetes mellitus with neuropathy: Unclear diagnosis given A1C 5.4. Hypoglycemia this morning. D/C insulin. Continue ACHS BSG due to hypoglycemia. (7) Hypertension: Continue amlodipine/hydralazine. Switch metoprolol to carvedilol for better BP control. (8) Hypothyroidism: Elevated TSH and free T4 suggestive of TSH-mediated hyperthyroidism but given currently on levothyroxine, possibly under treated hypothyroidism. She is asymptomatic and would recommend TSH is repeated when she is well and will not adjust thyroid medication at this time as it has been labile in the past. (9) DVT prophylaxis: Unable to given lovenox due to renal function. Refused heparin SQ due to porcine product. Refuses anticoagulation for atrial fibrillation. Full code as per patient wishes Dispo - pt reports at baseline physical and mental state therefore will not consult PT or OT at this time. Subjective No acute events overnight. Patient appears well sitting at bedside. Main complaint is her feet. No dysuria, flank tenderness, change in urine frequency. She feels she is coping well-does not have baseline physical and mental status. Review of Systems Review of Systems: All systems reviewed & are unremarkable except as noted in HPI & below Physical Exam Constitutional: well developed and + frail appearing Eyes: normal visual herring by confrontation; no conjunctival abnormality ENMT: Mouth: + oral mucosal abnormality (dry) Neck: trachea midline, no thyromegaly Respiratory: normal respiratory effort, lungs clear to auscultation Cardiovascular: Rate/Rhythm: regular rate and regular rhythm Heart Sounds: normal S1 and normal S2; no murmur Gastrointestinal (Abdomen): normal bowel sounds, soft, nontender, no hepatosplenomegaly Musculoskeletal: no cyanosis or clubbing, extremities motor strength 5/5 Skin: Yellow hypertrophic crusting of all toe nails with surrounding skin peeling, bleeding ulcers on heels Results & Data Vital Signs (Past 12 Hours) Vital Signs Temp Pulse Pulse Resp BP BP Pulse Ox 03/22/19 07:10 97.9 F 86 19 160/100 H 91 03/22/19 03:34 97.5 F L 74 19 152/104 H 94 03/22/19 00:33 167/93 H 03/21/19 23:21 97.3 F L 97 H 18 141/109 H 94 03/21/19 23:06 93 H 03/21/19 22:54 77 16 158/98 H 94 03/21/19 22:04 84 16 158/98 H 95 03/21/19 21:07 85 14 94 PG Care Time/CCT Total # of Minutes Spent Total Time Spent with Patient: Total time spent is greater than 50% in coordination of care (as documented) at patient's floor/unit and/or counseling patient: (1) CKD (chronic kidney disease) Chronic kidney disease stage: unspecified stage Qualified Code(s): N18.9 - Chronic kidney disease, unspecified (2) Hypertension Hypertension type: unspecified Qualified Code(s): I10 - Essential (primary) hypertension
[2019-03-22 08:52] LABS: Hematocrit (blood only) 32.6 % (37-47); Hemoglobin 10.4 g/dL (12.0-16.0); Mean Corpuscular Hemoglobin 29.1 pg (25-34); Mean Corpuscular Hgb Conc 31.9 g/dL (32-36); Mean Corpuscular Volume 91.1 fL (80-100); Mean Platelet Volume 11.4 fL (7.4-10.4); Platelet Count 175 K/uL (130-400); RDW Coefficient of Variation 16.2 % (11.5-14.5); RDW Standard Deviation 53.6 fL (36.4-46.3); Red Blood Count 3.58 M/uL (4.2-5.4); White Blood Count 4.45 K/uL (4.8-10.8)
[2019-03-22] MEDS ORDERED: METOPROLOL TARTRATE 25 MG TAB PO SCH (09:00)
[2019-03-22] MEDS ORDERED: MUPIROCIN 2% OINT 22 GM TUBE TOP SCH (09:00)
[2019-03-22 09:24] LABS: BUN Creatinine Ratio 14.8 (10-20); Calcium 8.6 mg/dl (8.5-10.1); Creatinine Clr Calc Pharmacy 13.3 ml/min; Est GFR (African American) 15.3; Est GFR (Non-African American) 13.2; Potassium 4.5 mmol/L (3.5-5.1)
[2019-03-22 09:35] LABS: Phosphorus 4.3 mg/dl (2.5-4.9); Thyroid Stimulating Hormone 12.5 uIu/ml (0.300-4.500)
[2019-03-22 09:47] LABS: T4 Free Thyroxine 1.73 ng/dl (0.8-1.6)
--- NOTE | 2019-03-22 09:49 | XRay Report ---
XR chest 2V routine CLINICAL HISTORY: 78 years-old Female presenting with RALPH, LV dysfunction ?pulmonary edema. TECHNIQUE: PA and lateral views of the chest were obtained. COMPARISON: 02/14/2019. FINDINGS: Atherosclerosis of the aortic arch. Cardiopericardial silhouette markedly enlarged. Mild pulmonary va scular prominence. Pleural parenchymal scarring suggested at the right apex. No other focal opacity. No large effusion or pneumothorax. Osseous structures normal. Upper abdomen normal. IMPRESSION: 1. Marked enlargement of the cardiopericardial silhouette likely is evidence of cardiomegaly. Mild v olume overload. No advanced congestive change or pulmonary edema. Electronically signed by: Dayday Julian M.D. 03/22/2019 9:48 AM
--- NOTE | 2019-03-22 12:19 | Nephrology Consultation ---
Date of Consultation March 22, 2019 Assessment & Plan (1) RALPH (acute kidney injury): -- Clinically volume contracted -- Hold furosemide -- Provide gentle hydration -- Will check FeNa -- Monitor PRP (2) CKD (chronic kidney disease): -- Renal vascular disease. R kidney is atrophic/nonfunctional -- Baseline creatinine ~ 2.5 (3) Hypertension: -- Blood pressure is elevated -- Avoid CARLOS/ARB due to RALPH -- Consider titrating Metoprolol or changing to Carvedilol (4) Proteinuria: -- Outpatient paraprotein evaluation was negative History of Present Illness Reason for Consultation: RALPH/CKD Attending Physician: Rober Gregg MD History of Present Illness Ms. Figueroa is a 78 year old white female who is seen at the request of Dr. Gregg for evaluation of RALPH/CKD. Medical records in the EMR were reviewed this morning and are summarized as follows: Ms. Figueroa has CKD w/ baseline creatinine ~ 2.5 due to renal vascular disease. Her Systems Test Engineer is Dr. Parikh. Previous evaluation has revealed an atrophic 5 cm R kidney. L renal artery was found to be patent. UPCR has been 2.0. Paraprotein evaluation has been negative. Patient's medical history includes AODM, anemia, HTN, atrial fibrillation, ICM, hyponatremia (SIADH). Ms. Figueroa was last seen in the Nephrology office 04/21. Discussion was held regarding HD and vascular access. Patient was then lost to follow up. Ms. Figueroa presented to the ED last night for evaluation of dry bleeding skin involving her heels. She was tachycardic and clinically dehydrated. Serum creatinine was 3.3. Admission was advised for IV hydration and evaluation of RALPH/CKD Allergies Allergy/AdvReac Type Severity Reaction Status Date / Time doxycycline Allergy Unknown Unknown Unverified 03/03/19 13:26 labetalol Allergy Unknown Unknown Unverified 03/03/19 13:26 lorazepam Allergy Unknown Unknown Unverified 03/03/19 13:26 Pork/Porcine Containing Allergy Unknown unknown Unverified 03/03/19 13:26 Products tetracycline Allergy Unknown unknown(not Unverified 03/03/19 13:26 100% sure if she's allergic to it) tramadol AdvReac Unknown dizzy, Verified 03/03/19 13:26 emesis Home Medications Home Medications Medication Instructions Recorded Confirmed Type mupirocin 2 % topical ointment 1 appln TOP BID #15 gm 01/26/19 03/21/19 Rx fluticasone 250 mcg-salmeterol 50 1 puffs INH Q12H #60 ea 01/28/19 03/21/19 Rx mcg/dose blistr powdr for inhalation hydralazine 25 mg tablet 25 mg PO TID #90 tab 01/28/19 03/21/19 Rx ranitidine 150 mg capsule 150 mg PO BID #60 cap 01/28/19 03/21/19 Rx amlodipine 10 mg PO QAM 02/13/19 03/21/19 History aspirin 81 mg PO QAM 02/13/19 03/21/19 History cholecalciferol (vitamin D3) 400 units PO QAM 02/13/19 03/21/19 History folic acid 1 mg PO QAM 02/13/19 03/21/19 History furosemide 40 mg PO QAM 02/13/19 03/21/19 History levothyroxine 150 mcg PO QAM 02/13/19 03/21/19 History venlafaxine 75 mg PO QAM 02/13/19 03/21/19 History vitamin B complex [B 1 tab PO QAM 02/13/19 03/21/19 History Complex-Vitamin B12] sodium bicarbonate 650 mg PO BID #60 tab 02/14/19 03/21/19 Rx metoprolol tartrate 25 mg PO BID 03/21/19 03/21/19 History Patient History Medical History Psoriasis Diabetes mellitus with neuropathy (Chronic) Hypertension (Chronic) Hypothyroidism (Chronic) Proteinuria Anemia Anemia associated with chronic renal failure Acute kidney injury superimposed on chronic kidney disease Chronic kidney disease (CKD) stage G4/A2, severely decreased glomerular filtration rate (GFR) between 15-29 mL/min/1.73 square meter and albuminuria creatinine ratio between 30-299 mg/g Dehydration Gastroenteritis Hypertension (Acute) SIADH (syndrome of inappropriate ADH production) Social History Preferred Language: [place]e Communication Ability: Effective Certified First Assistant Required: No Beliefs That Will Affect Care: None marital status: Single Current Living Situation: Alone Other Information That Helps Us Care for You: No Feels Safe at Home: Yes Safety Concerns: Feels Safe At This Time Smoking Status: Never smoker Hx Alcohol Use: No Hx Substance Use: No Review of Systems Constitutional: no fever, no chills and no weakness Eyes: no worsening vision and no problem reported Ear, Nose, Mouth, Throat: no problem reported Respiratory: no cough and no dyspnea Cardiovascular: no chest pain, no palpitations and no edema Gastrointestinal: no abdominal pain, no nausea, no vomiting and no diarrhea/loose stools Genitourinary: no dysuria and no hematuria Musculoskeletal: no back pain Integumentary: no rash Neurologic: no falls, no dizziness and no confusion Physical Exam Constitutional: + frail appearing Eyes: PERRL, conjunctivae normal, anicteric sclerae ENMT: Mouth: + dry oral mucous membranes Neck: trachea midline, no thyromegaly Respiratory: normal respiratory effort, lungs clear to auscultation Cardiovascular: Rate/Rhythm: + tachycardic Extremities: no edema (poor skin turgor) Gastrointestinal (Abdomen): normal bowel sounds, soft, nontender, no hepatosplenomegaly Musculoskeletal: Extremities: no cyanosis Skin: no rashes, warm and dry Neurologic: awake; not confused Results & Data Vital Signs (Past 12 Hours) Vital Signs Temp Pulse Resp BP BP Pulse Ox 03/22/19 11:41 36.6 C 78 16 170/106 H 181/110 H 95 03/22/19 07:10 36.6 C 86 19 160/100 H 91 03/22/19 03:34 36.4 C L 74 19 152/104 H 94 03/22/19 00:33 167/93 H Laboratory Results Laboratory Tests 03/22/19 03/22/19 03/22/19 08:34 08:34 08:34 WBC 4.45 L Hgb 10.4 L Hct 32.6 L Plt Count 175 Sodium 137 Potassium 4.5 Chloride 106 Carbon Dioxide 20 L BUN 48 H Creatinine 3.22 H Glucose 101 H Calcium 8.6 TSH 12.500 H Free T4 1.73 H PTH Intact 400.4 H PG Care Time/CCT Total # of Minutes Spent Total Time Spent with Patient: Total time spent is greater than 50% in coordination of care (as documented) at patient's floor/unit and/or counseling patient: (1) CKD (chronic kidney disease) Chronic kidney disease stage: unspecified stage Qualified Code(s): N18.9 - Chronic kidney disease, unspecified
[2019-03-22] MEDS: ONDANSETRON 4 MG TAB PO PRN (13:20)
[2019-03-22] MEDS: SODIUM CHLORIDE 0.9% 1000ML 1,000 ML IV SCH (18:11)
[2019-03-22] MEDS: carvediloL 6.25 MG TAB PO SCH (21:07)
[2019-03-22] MEDS: TERBINAFINE CR 30 GM TUBE EXT SCH (21:08)
[2019-03-23 04:09] LABS: Hematocrit (blood only) 30.4 % (37-47); Hemoglobin 9.7 g/dL (12.0-16.0); Mean Corpuscular Hgb Conc 31.9 g/dL (32-36); Platelet Count 171 K/uL (130-400); RDW Coefficient of Variation 16.3 % (11.5-14.5); RDW Standard Deviation 53.7 fL (36.4-46.3); Red Blood Count 3.34 M/uL (4.2-5.4); White Blood Count 3.81 K/uL (4.8-10.8)
[2019-03-23 04:26] LABS: BUN Creatinine Ratio 15.6 (10-20); Calcium 8.3 mg/dl (8.5-10.1); Est GFR (African American) 16.2; Potassium 4.5 mmol/L (3.5-5.1)
[2019-03-23] MEDS: LEVOTHYROXINE SODIUM 150 MCG TABLET PO SCH (06:15)
[2019-03-23] MEDS: FLUTICASONE/SALMETEROL 250/50 (ADVAIR) 14 PUFF/1 INHALER INH SCH ×2 (08:17→20:17)
[2019-03-23] MEDS: carvediloL 6.25 MG TAB PO SCH ×2 (08:18→20:19)
[2019-03-23] MEDS: ASPIRIN 81 MG ECTAB PO SCH (08:18)
[2019-03-23] MEDS: VENLAFAXINE HCL XR 75 MG CAPXR PO SCH (08:18)
[2019-03-23] MEDS: TERBINAFINE CR 30 GM TUBE EXT SCH ×2 (08:18→19:53)
[2019-03-23] MEDS: SODIUM BICARBONATE 650 MG TAB PO SCH ×2 (08:18→20:18)
[2019-03-23] MEDS: AMLODIPINE BESYLATE 5 MG TAB PO SCH (08:18)
[2019-03-23] MEDS: FOLIC ACID 1 MG TAB PO SCH (08:18)
--- NOTE | 2019-03-23 08:42 | Hospitalist Progress Note ---
Date of Service March 23, 2019 Assessment & Plan (1) Tinea pedis: Continue terbinafine cream BID (she thinks she may have been on this from her exhibit builder). Patient refused wound care management. As per outpatient note from her labor relations consultant in October these appear to be chronic issues. (2) RALPH (acute kidney injury): Main reason patient was admitted, likely pre-renal 2/2 diuretic use and reduced oral intake. Hypovolemic on exam. Cr improving. Rate increased by Dr Hassan. Monitor for signs of pulmonary edema (none currently). Holding lasix. (3) CKD (chronic kidney disease): Chronic kidney disease stage IV Currently has acute on chronic as above (4) Atrial fibrillation with RVR: Responded to 1 bolus of normal saline 500 normal saline and 1 dose of meto prolol 25mg PO. Recently diagnosed in February. Will switch metoprolol to carvedilol for better BP control. Repeat echo as outpatient given significant cardiomyopathy (assumed ischemic although possibility decreased due to rate on last admission). CXR to assess for pulmonary edema. (5) Systolic CHF: Chronic systolic congestive heart failure, appears to be compensated, no acute exacerbation. Switching metoprolol to carvedilol, no ACEi given RALPH. Holding lasix. No significant pulmonary edema on CXR or exam (6) Diabetes mellitus with neuropathy: Unclear diagnosis given A1C 5.4. Can d/c BSG (7) Hypertension: Continue amlodipine/hydralazine. Switched metoprolol to carvedilol for better BP control. (8) Hypothyroidism: Elevated TSH and free T4 suggestive of TSH-mediated hyperthyroidism but given currently on levothyroxine, possibly under treated hypothyroidism. She is asymptomatic and would recommend TSH is repeated when she is well and will not adjust thyroid medication at this time as it has been labile in the past. (9) DVT prophylaxis: Unable to given lovenox due to renal function. Refused heparin SQ due to porcine product. Refuses anticoagulation for atrial fibrillation. SCDs ordered. Full code as per patient wishes Dispo - pt reports at baseline physical and mental state therefore will not consult PT or OT at this time. Subjective No acute events overnight. No chest pain or shortness of breath. Urinating normally. Patient with no complaints. Review of Systems Review of Systems: All systems reviewed & are unremarkable except as noted in HPI & below Physical Exam Constitutional: well developed and + frail appearing Eyes: normal visual herring by confrontation; no conjunctival abnormality ENMT: Mouth: + oral mucosal abnormality (dry) Neck: trachea midline, no thyromegaly Respiratory: normal respiratory effort, lungs clear to auscultation Cardiovascular: Rate/Rhythm: regular rate and regular rhythm Heart Sounds: normal S1 and normal S2; no murmur Gastrointestinal (Abdomen): normal bowel sounds, soft, nontender, no hepatosplenomegaly Musculoskeletal: no cyanosis or clubbing, extremities motor strength 5/5 Results & Data Vital Signs (Past 12 Hours) Vital Signs Temp Pulse Resp BP BP Pulse Ox 03/23/19 07:50 97.7 F 75 19 162/91 H 92 03/23/19 03:49 98.1 F 85 18 137/100 90 03/22/19 23:41 98.1 F 82 18 145/68 H 92 PG Care Time/CCT Total # of Minutes Spent Total Time Spent with Patient: Total time spent is greater than 50% in coordination of care (as documented) at patient's floor/unit and/or counseling patient: (1) CKD (chronic kidney disease) Chronic kidney disease stage: unspecified stage Qualified Code(s): N18.9 - Chronic kidney disease, unspecified (2) Hypertension Hypertension type: unspecified Qualified Code(s): I10 - Essential (primary) hypertension
[2019-03-23] MEDS ORDERED: METOPROLOL SUCC 50MG EXT REL TAB PO SCH (09:00)
--- NOTE | 2019-03-23 10:07 | Nephrology Progress Note ---
Date of Service March 23, 2019 Assessment & Plan (1) RALPH (acute kidney injury): -- Creatinine is gradually trending down w/ IV hydration -- Patient remains clinically volume contracted -- FeNa 0.6% -- Hold furosemide -- Increase IVF to 100 cc/hr -- Monitor PRP (2) CKD (chronic kidney disease): -- Renal vascular disease. R kidney is atrophic/nonfunctional -- Baseline creatinine ~ 2.5 (3) Hypertension: -- Blood pressure is elevated -- Avoid CARLOS/ARB due to RALPH -- Consider titrating Metoprolol or changing to Carvedilol (4) Proteinuria: -- Outpatient paraprotein evaluation was negative Subjective Ms. Figueroa was seen & examined in her hospital room this morning. She is tolerating IV hydration without dyspnea. She voices no medical concerns. Review of Systems Constitutional: no fever and no chills Eyes: no worsening vision and no problem reported Ear, Nose, Mouth, Throat: no problem reported Respiratory: no cough and no dyspnea Cardiovascular: no chest pain, no palpitations and no edema Gastrointestinal: no abdominal pain, no nausea, no vomiting and no diarrhea/loose stools Genitourinary: no dysuria and no hematuria Musculoskeletal: no back pain Integumentary: no rash Neurologic: no dizziness and no confusion Physical Exam Constitutional: + frail appearing Eyes: PERRL, conjunctivae normal, anicteric sclerae ENMT: Mouth: + dry oral mucous membranes Neck: trachea midline, no thyromegaly Respiratory: normal respiratory effort, lungs clear to auscultation Cardiovascular: Rate/Rhythm: regular rate and regular rhythm Extremities: no edema (poor skin turgor) Gastrointestinal (Abdomen): normal bowel sounds, soft, nontender, no hepatosplenomegaly Musculoskeletal: Extremities: no cyanosis Skin: no rashes, warm and dry Neurologic: awake; not confused Results & Data Vital Signs (Past 12 Hours) Vital Signs Temp Pulse Pulse Resp BP BP Pulse Ox 03/23/19 10:04 36.4 C L 75 16 133/74 93 03/23/19 07:50 36.5 C 75 19 162/91 H 92 03/23/19 03:49 36.7 C 85 18 137/100 90 03/22/19 23:41 36.7 C 82 18 145/68 H 92 Laboratory Results Laboratory Tests 03/22/19 03/23/19 03/23/19 07:50 03:52 03:52 WBC 3.81 L Hgb 9.7 L Hct 30.4 L Plt Count 171 Sodium 138 Potassium 4.5 Chloride 107 Carbon Dioxide 20 L BUN 48 H Creatinine 3.07 H Glucose 71 Calcium 8.3 L Urine Color Yellow Urine Appearance Clear Urine pH 5.5 Ur Specific [place] 1.015 Urine Protein 3+ H Urine Glucose (UA) Negative Urine Ketones Negative Urine Blood Trace H Urine Nitrite Negative Urine WBC (Auto) 1-5 Urine RBC (Auto) 0-4 U Epithel Cells (Auto) >30 H Urine Bacteria (Auto) Negative PG Care Time/CCT Total # of Minutes Spent Total Time Spent with Patient: Total time spent is greater than 50% in coordination of care (as documented) at patient's floor/unit and/or counseling patient: (1) CKD (chronic kidney disease) Chronic kidney disease stage: unspecified stage Qualified Code(s): N18.9 - Chronic kidney disease, unspecified
[2019-03-23] MEDS: SODIUM CHLORIDE 0.9% 1000ML 1,000 ML IV SCH ×2 (11:31→21:38)
[2019-03-24] MEDS: LEVOTHYROXINE SODIUM 150 MCG TABLET PO SCH (05:57)
[2019-03-24] MEDS: ASPIRIN 81 MG ECTAB PO SCH (07:52)
[2019-03-24] MEDS: carvediloL 6.25 MG TAB PO SCH ×2 (07:52→20:37)
[2019-03-24] MEDS: FOLIC ACID 1 MG TAB PO SCH (07:53)
[2019-03-24] MEDS: VENLAFAXINE HCL XR 75 MG CAPXR PO SCH (07:53)
[2019-03-24] MEDS: AMLODIPINE BESYLATE 5 MG TAB PO SCH (07:53)
[2019-03-24] MEDS: SODIUM BICARBONATE 650 MG TAB PO SCH (07:53)
[2019-03-24] MEDS: TERBINAFINE CR 30 GM TUBE EXT SCH ×2 (07:53→20:41)
[2019-03-24] MEDS: FLUTICASONE/SALMETEROL 250/50 (ADVAIR) 14 PUFF/1 INHALER INH SCH ×2 (07:53→20:38)
[2019-03-24 08:07] LABS: Hematocrit (blood only) 32.4 % (37-47); Hemoglobin 10.3 g/dL (12.0-16.0); Mean Corpuscular Hemoglobin 29.6 pg (25-34); Mean Corpuscular Hgb Conc 31.8 g/dL (32-36); Mean Corpuscular Volume 93.1 fL (80-100); Mean Platelet Volume 11.2 fL (7.4-10.4); Platelet Count 187 K/uL (130-400); RDW Coefficient of Variation 16.5 % (11.5-14.5); RDW Standard Deviation 55.9 fL (36.4-46.3); Red Blood Count 3.48 M/uL (4.2-5.4); White Blood Count 4.06 K/uL (4.8-10.8)
[2019-03-24 08:19] LABS: BUN Creatinine Ratio 12.3 (10-20); Calcium 8.1 mg/dl (8.5-10.1); Creatinine Clr Calc Pharmacy 12.6 ml/min; Est GFR (African American) 14.2; Est GFR (Non-African American) 12.3; Potassium 4.4 mmol/L (3.5-5.1)
--- NOTE | 2019-03-24 10:10 | XRay Report ---
XR chest 2V routine CLINICAL HISTORY: 78 years-old Female presenting with ? pulmonary edema. TECHNIQUE: PA and lateral views of the chest were obtained. COMPARISON: 03/22/2019. FINDINGS: Atherosclerosis of the aortic arch. Cardiac silhouette enlarged. Trace right and small left pleural e ffusion. Mild bibasilar opacities greater on the left. Degenerative changes of the thoracic spine. Mo derate compression deformity at the thoracolumbar spine. Upper abdomen normal. IMPRESSION: 1. Cardiomegaly. No haja pulmonary edema. 2. Small bilateral pleural effusion and bilateral atelectasis. Electronically signed by: Dayday Julian M.D. 03/24/2019 10:08 AM
--- NOTE | 2019-03-24 10:48 | Nephrology Progress Note ---
Date of Service March 24, 2019 Assessment & Plan (1) RALPH (acute kidney injury): -- Abrupt increase in creatinine overnight -- Patient remains clinically volume contracted w/ FeNa 0.6% -- Continue to hold furosemide -- Will resume IV hydration and recheck PRP this afternoon (2) CKD (chronic kidney disease): -- Renal vascular disease. R kidney is atrophic/nonfunctional -- Baseline creatinine ~ 2.5 (3) Hypertension: -- Blood pressure is improved -- Avoid CARLOS/ARB due to RALPH -- Metoprolol changed to Carvedilol to improve BP management (4) Proteinuria: -- Outpatient paraprotein evaluation was negative Subjective Ms. Figueroa was seen & examined in her hospital room this morning. She denies fl ank pain, hematuria or uremic symptoms. She has tolerated IV hydration without dyspnea. She is subjectively stronger Review of Systems Constitutional: no fever and no chills Eyes: no worsening vision and no problem reported Ear, Nose, Mouth, Throat: no problem reported Respiratory: no cough and no dyspnea Cardiovascular: no chest pain, no palpitations and no edema Gastrointestinal: no abdominal pain, no nausea, no vomiting and no diarrhea/loose stools Genitourinary: no dysuria and no hematuria Musculoskeletal: no back pain Integumentary: no rash Neurologic: no falls, no dizziness and no confusion Physical Exam Constitutional: + frail appearing Eyes: PERRL, conjunctivae normal, anicteric sclerae ENMT: Mouth: + dry oral mucous membranes Neck: trachea midline, no thyromegaly Respiratory: normal respiratory effort, lungs clear to auscultation Cardiovascular: Rate/Rhythm: regular rate and regular rhythm Extremities: no edema (poor skin turgor) Gastrointestinal (Abdomen): normal bowel sounds, soft, nontender, no hepatosplenomegaly Musculoskeletal: Extremities: no cyanosis Skin: no rashes, warm and dry Neurologic: awake; not confused Results & Data Vital Signs (Past 12 Hours) Vital Signs Temp Pulse Resp BP Pulse Ox 03/24/19 07:00 36.3 C L 86 20 150/93 H 91 03/23/19 22:55 95 03/23/19 22:53 36.2 C L 89 18 124/70 85 L Laboratory Results Laboratory Tests 03/24/19 03/24/19 07:12 07:12 WBC 4.06 L Hgb 10.3 L Hct 32.4 L Plt Count 187 Sodium 138 Potassium 4.4 Chloride 109 H Carbon Dioxide 19 L BUN 42 H Creatinine 3.42 H D Glucose 81 PG Care Time/CCT Total # of Minutes Spent Total Time Spent with Patient: Total time spent is greater than 50% in coordination of care (as documented) at patient's floor/unit and/or counseling patient: (1) CKD (chronic kidney disease) Chronic kidney disease stage: unspecified stage Qualified Code(s): N18.9 - Chronic kidney disease, unspecified
[2019-03-24] MEDS ORDERED: SODIUM BICARBONATE 8.4% 75 MEQ in SODIUM CHLORIDE 0.45 % 1,000 ML IV SCH (11:00)
[2019-03-24 15:30] LABS: Albumin Level 3.1 gm/dl (3.4-5.0); BUN Creatinine Ratio 12.3 (10-20); Calcium 8.3 mg/dl (8.5-10.1); Creatinine Clr Calc Pharmacy 12.4 ml/min; Est GFR (Non-African American) 12.1; Potassium 4.5 mmol/L (3.5-5.1)
[2019-03-24 15:33] LABS: Albumin Globulin Ratio 0.9 (0.9-2); Bilirubin,Total 0.5 mg/dl (0.2-1); Globulin 3.3 gm/dl (2.5-4.0); Total Protein 6.4 gm/dl (6.4-8.2)
--- NOTE | 2019-03-24 18:53 | Hospitalist Progress Note ---
Date of Service March 24, 2019 Assessment & Plan (1) Hypoxia: New oxygen requirement and chest x-ray suggestive of pulmonary edema. No white blood count or fevers to suggest pneumonia. (2) HFrEF (heart failure with reduced ejection fraction): Suspected cause of hypoxia above with pulmonary edema on chest x-ray. Due to overcorrection with IV fluids and stopping Lasix. No acute distress therefore will continue to hold Lasix and just stop IV fluids at this time. Uptitrate carvedilol to 12.5 mg twice daily. No CARLOS inhibitor due to CKD. We will defer echocardiogram for outpatient when well as will be more union representative of her baseline. (3) RALPH (acute kidney injury): Main reason patient was admitted, initially pre-renal 2/2 diuretic use and reduced oral intake and was initially improving with IV fluids. Suspect worsening over the last 2 days due to development of congestive heart failure and overcorrection with IV fluids. Management as above (4) CKD (chronic kidney disease): Chronic kidney disease stage IV Currently has acute on chronic as above (5) Tinea pedis: Continue terbinafine cream BID. Appreciate wound care management advice. As per outpatient note from her microchip specialist in October these appear to be chronic issues. Fungal cultures taken 03/24, follow-up as outpatient. Moderate hyphae on nail GENARO. Rare hyphae on skin GENARO. (6) Atrial fibrillation with RVR: Currently regular rhythm, repeat EKG in a.m. Recently diagnosed in February. Switched metoprolol to carvedilol for better BP control and uptitrate for heart failure. Repeat echo as outpatient given significant cardiomyopathy (assumed ischemic although possibility decreased due to rate on last admission). Patient now accepting of anticoagulation for stroke prophylaxis, given CKD stage IV recommend Eliquis 2.5 mg twice daily Follow-up with cardiology on discharge (7) Diabetes mellitus with neuropathy: Unclear diagnosis given A1C 5.4. D/C BSG (8) Hypertension: Continue amlodipine/hydralazine. Metoprolol switched to carvedilol for better BP control. (9) Hypothyroidism: Elevated TSH and free T4 suggestive of TSH-mediated hyperthyroidism but given currently on levothyroxine, possibly under treated hypothyroidism. She is asymptomatic and would recommend TSH is repeated when she is well and will not adjust thyroid medication at this time as it has been labile in the past. (10) DVT prophylaxis: Started on Eliquis 2.5 mg twice daily as above. SCDs. Full code as per patient wishes Dispo -will require weaning oxygen prior to discharge as hypoxia is new onset during this admission. Subjective Reports feet much improved with using terbinafine twice daily. New onset of cough today, reports green sputum. She denies any chest pain, shortness of breath, swelling of the arms or legs. Denies orthopnea, PND, wheezing, palpitations, claudication. New oxygen requirement today although she did walk the length of the corridor without shortness of breath. Review of Systems Review of Systems: All systems reviewed & are unremarkable except as noted in HPI & below Physical Exam Constitutional: well developed, + obese and + frail appearing Eyes: normal visual herring by confrontation; no conjunctival abnormality ENMT: external ear and nose normal, oropharynx normal Mouth: + lip abnormality (Upper lip appears more swollen) Neck: normal visual inspection and trachea midline Respiratory: normal respiratory effort, lungs clear to auscultation + uses accessory muscles, + prolonged expiratory phase and symmetric chest movement; + abnormal respiratory effort, not tachypneic, no grunting, no nasal flaring, no pursed lip breathing and no stridor Auscultation: + diminished lung sounds (Bilateral bases); no crackles and no wheezes Cardiovascular: Rate/Rhythm: regular rate and regular rhythm Heart Sounds: normal S1 and normal S2; no murmur Gastrointestinal (Abdomen): normal bowel sounds, soft, nontender, no hepatosplenomegaly Musculoskeletal: no cyanosis or clubbing, extremities motor strength 5/5 Head/Neck/Chest: no chest tenderness Skin: Continued extensive onychomycoses of all her toes. Flaking of skin between toes and on the bottom of her feet much improved since admission Neurologic: moves all extremities and awake; no focal motor deficits Motor/Sensory: no tremor, normal movement and no sensory deficit Psychiatric: A+Ox3, euthymic affect Results & Data Vital Signs (Past 12 Hours) Vital Signs Temp Pulse Resp BP Pulse Ox 03/24/19 15:00 97.0 F L 74 18 147/83 H 92 03/24/19 07:00 97.3 F L 86 20 150/93 H 91 PG Care Time/CCT Total # of Minutes Spent Total Time Spent with Patient: Total time spent is greater than 50% in coordination of care (as documented) at patient's floor/unit and/or counseling patient: (1) Tinea pedis Laterality: bilateral Qualified Code(s): B35.3 - Tinea pedis (2) CKD (chronic kidney disease) Chronic kidney disease stage: unspecified stage Qualified Code(s): N18.9 - Chronic kidney disease, unspecified (3) Hypertension Hypertension type: unspecified Qualified Code(s): I10 - Essential (primary) hypertension
[2019-03-25] MEDS: LEVOTHYROXINE SODIUM 150 MCG TABLET PO SCH (05:38)
[2019-03-25] MEDS: FLUTICASONE/SALMETEROL 250/50 (ADVAIR) 14 PUFF/1 INHALER INH SCH ×2 (07:23→20:54)
[2019-03-25] MEDS: VENLAFAXINE HCL XR 75 MG CAPXR PO SCH (07:24)
[2019-03-25] MEDS: ASPIRIN 81 MG ECTAB PO SCH (07:25)
[2019-03-25] MEDS: FOLIC ACID 1 MG TAB PO SCH (07:25)
[2019-03-25] MEDS: carvediloL 6.25 MG TAB PO SCH ×2 (07:25→21:49)
[2019-03-25] MEDS: AMLODIPINE BESYLATE 5 MG TAB PO SCH (07:25)
[2019-03-25] MEDS: TERBINAFINE CR 30 GM TUBE EXT SCH ×2 (07:26→20:56)
[2019-03-25 07:46] LABS: Hemoglobin 10.3 g/dL (12.0-16.0); Mean Corpuscular Hemoglobin 28.9 pg (25-34); Mean Corpuscular Hgb Conc 31.2 g/dL (32-36); Mean Corpuscular Volume 92.4 fL (80-100); Mean Platelet Volume 10.9 fL (7.4-10.4); Platelet Count 221 K/uL (130-400); RDW Coefficient of Variation 16.4 % (11.5-14.5); RDW Standard Deviation 55.2 fL (36.4-46.3); Red Blood Count 3.57 M/uL (4.2-5.4); White Blood Count 5.31 K/uL (4.8-10.8)
[2019-03-25 08:25] LABS: BUN Creatinine Ratio 12.5 (10-20); Calcium 8.4 mg/dl (8.5-10.1); Creatinine Clr Calc Pharmacy 12.3 ml/min; Est GFR (African American) 13.9; Potassium 4.6 mmol/L (3.5-5.1)
--- NOTE | 2019-03-25 09:57 | Nephrology Progress Note ---
Date of Service March 25, 2019 Assessment & Plan (1) RALPH (acute kidney injury): -- Creatinine stabilizing at 3.5 -- Will provide IV hydration and supplement NaHCO3 -- Will request dietitian provide education on low K diet -- I have spoken w/ patient about AVF creation and IHD. She is agreeable to AVF creation as outpatient -- If discharge is anticipated please have patient follow up in my office in 2 weeks ([phone]). She will need lab work 24 hours prior to OV. I have placed order in EMR (2) CKD (chronic kidney disease): -- Renal vascular disease. R kidney is atrophic/nonfunctional -- Baseline creatinine ~ 2.5 (3) Hypertension: -- Blood pressure is improved -- Avoid CARLOS/ARB due to RALPH -- Metoprolol changed to Carvedilol to improve BP management (4) Proteinuria: -- Outpatient paraprotein evaluation was negative Subjective Ms. Figueroa was seen & examined in her hospital room this morning. She denies flank pain, hematuria or uremic symptoms. She has tolerated IV hydration without dyspnea. She is subjectively stronger Review of Systems Constitutional: no fever, no chills and no weakness Eyes: no worsening vision and no problem reported Ear, Nose, Mouth, Throat: no problem reported Respiratory: no cough and no dyspnea Cardiovascular: no chest pain, no palpitations and no edema Gastrointestinal: no abdominal pain, no nausea, no vomiting and no diarrhea/loose stools Genitourinary: no dysuria and no hematuria Musculoskeletal: no back pain Integumentary: no rash Neurologic: no falls, no dizziness and no confusion Physical Exam Constitutional: + frail appearing Eyes: PERRL, conjunctivae normal, anicteric sclerae ENMT: Mouth: + dry oral mucous membranes Neck: trachea midline, no thyromegaly Respiratory: normal respiratory effort, lungs clear to auscultation Cardiovascular: Rate/Rhythm: regular rate and regular rhythm Extremities: no edema (poor skin turgor) Gastrointestinal (Abdomen): normal bowel sounds, soft, nontender, no hepatosplenomegaly Musculoskeletal: Extremities: no cyanosis Skin: no rashes, warm and dry Neurologic: awake; not confused Results & Data Vital Signs (Past 12 Hours) Vital Signs Temp Pulse Resp BP Pulse Ox 03/25/19 07:05 36.4 C L 86 20 145/63 H 90 03/24/19 22:54 36.2 C L 87 20 132/83 92 Laboratory Results Laboratory Tests 03/25/19 03/25/19 07:31 07:31 Hgb 10.3 L Hct 33.0 L Plt Count 221 Sodium 134 L Potassium 4.6 Chloride 105 Carbon Dioxide 19 L BUN 43 H Creatinine 3.48 H Glucose 96 Calcium 8.4 L PG Care Time/CCT Total # of Minutes Spent Total Time Spent with Patient: Total time spent is greater than 50% in coordination of care (as documented) at patient's floor/unit and/or counseling patient: (1) CKD (chronic kidney disease) Chronic kidney disease stage: unspecified stage Qualified Code(s): N18.9 - Chronic kidney disease, unspecified
[2019-03-25] MEDS ORDERED: SODIUM BICARBONATE 8.4% 75 MEQ in SODIUM CHLORIDE 0.45 % 1,000 ML IV SCH (10:00)
--- NOTE | 2019-03-25 15:34 | XRay Report ---
XR chest 2V routine HISTORY: Shortness of breath. increased O2 requirement ?pulmonary edema COMPARISON: Chest 03/24/2019. FINDINGS: Cardiomegaly, mild interstitial pulmonary edema, and small bilateral pleural effusions have slightly progressed. No pneumothorax. Patchy bibasilar densities likely representing compressive ate lectasis from the pleural effusions. IMPRESSION: Interval progression of the mild interstitial pulmonary edema and small bilateral pleural effusions. Electronically signed by: Johnathon Bonilla M.D. 03/25/2019 3:33 PM
[2019-03-25] MEDS ORDERED: EMOLLIENT OINTMENT 1 GM EXT PRN (20:07)
[2019-03-25] MEDS ORDERED: EMOLLIENT OINTMENT 1 GM EXT SCH (21:00)
--- NOTE | 2019-03-25 21:27 | Hospitalist Progress Note ---
Date of Service March 25, 2019 Assessment & Plan (1) Hypoxia: New oxygen requirement and chest x-ray suggestive of pulmonary edema. No white blood count or fevers to suggest pneumonia. (2) HFrEF (heart failure with reduced ejection fraction): Suspected cause of hypoxia above with pulmonary edema on chest x-ray. Due to overcorrection with IV fluids and stopping Lasix. No acute distress therefore will continue to hold Lasix and just stop IV fluids at this time. Uptitrate carvedilol to 12.5 mg twice daily. No CARLOS inhibitor due to CKD. We will defer echocardiogram for outpatient when well as will be more marketing sales representative of her baseline. (3) RALPH (acute kidney injury): Main reason patient was admitted, initially pre-renal 2/2 diuretic use and reduced oral intake and was initially improving with IV fluids. Suspect worsening over the last 2 days due to development of congestive heart failure and overcorrection with IV fluids. Management as above (4) CKD (chronic kidney disease): Chronic kidney disease stage IV Currently has acute on chronic as above (5) Tinea pedis: Continue terbinafine cream BID. Appreciate wound care management advice. As per outpatient note from her behavioral health case manager in October these appear to be chronic issues. Fungal cultures taken 03/24, follow-up as outpatient. Moderate hyphae on nail GENARO. Rare hyphae on skin GENARO. (6) Atrial fibrillation with RVR: Currently regular rhythm, repeat EKG in a.m. Recently diagnosed in February. Switched metoprolol to carvedilol for better BP control and uptitrate for heart failure. Repeat echo as outpatient given significant cardiomyopathy (assumed ischemic although possibility decreased due to rate on last admission). Patient now accepting of anticoagulation for stroke prophylaxis, given CKD stage IV recommend Eliquis 2.5 mg twice daily Follow-up with cardiology on discharge (7) Diabetes mellitus with neuropathy: Unclear diagnosis given A1C 5.4. D/C BSG (8) Hypertension: Continue amlodipine/hydralazine. Metoprolol switched to carvedilol for better BP control. (9) Hypothyroidism: Elevated TSH and free T4 suggestive of TSH-mediated hyperthyroidism but given currently on levothyroxine, possibly under treated hypothyroidism. She is asymptomatic and would recommend TSH is repeated when she is well and will not adjust thyroid medication at this time as it has been labile in the past. (10) DVT prophylaxis: Started on Eliquis 2.5 mg twice daily as above. SCDs. Full code as per patient wishes Dispo -will require weaning oxygen prior to discharge as hypoxia is new onset during this admission. Subjective Reports feet much improved with using terbinafine twice daily. New onset of cough today, reports green sputum. She denies any chest pain, shortness of breath, swelling of the arms or legs. Denies orthopnea, PND, wheezing, palpitations, claudication. New oxygen requirement today although she did walk the length of the corridor without shortness of breath. Review of Systems Review of Systems: All systems reviewed & are unremarkable except as noted in HPI & below Physical Exam Constitutional: well developed, + obese and + frail appearing Eyes: normal visual herring by confrontation; no conjunctival abnormality ENMT: external ear and nose normal, oropharynx normal Mouth: + lip abnormality (Upper lip appears more swollen) Neck: trachea midline, no thyromegaly normal visual inspection and trachea midline Respiratory: normal respiratory effort, lungs clear to auscultation + uses accessory muscles, + prolonged expiratory phase and symmetric chest movement; + abnormal respiratory effort, not tachypneic, no grunting, no nasal flaring, no pursed lip breathing and no stridor Auscultation: + diminished lung sounds (Bilateral bases); no crackles and no wheezes Cardiovascular: Rate/Rhythm: regular rate and regular rhythm Heart Sounds: normal S1 and normal S2; no murmur Gastrointestinal (Abdomen): normal bowel sounds, soft, nontender, no hepatosplenomegaly Musculoskeletal: no cyanosis or clubbing, extremities motor strength 5/5 Head/Neck/Chest: no chest tenderness Neurologic: moves all extremities and awake; no focal motor deficits Motor/Sensory: no tremor, normal movement and no sensory deficit Psychiatric: A+Ox3, euthymic affect Results & Data Vital Signs (Past 12 Hours) Vital Signs Temp Pulse Resp BP Pulse Ox 03/25/19 15:10 97.9 F 82 18 140/82 93 03/25/19 14:10 127/80 PG Care Time/CCT Total # of Minutes Spent Total Time Spent with Patient: Total time spent is greater than 50% in coordination of care (as documented) at patient's floor/unit and/or counseling patient: (1) CKD (chronic kidney disease) Chronic kidney disease stage: unspecified stage Qualified Code(s): N18.9 - Chronic kidney disease, unspecified (2) Tinea pedis Laterality: bilateral Qualified Code(s): B35.3 - Tinea pedis (3) Hypertension Hypertension type: unspecified Qualified Code(s): I10 - Essential (primary) hypertension
[2019-03-25] MEDS: APIXABAN 2.5 MG TAB PO SCH (21:49)
[2019-03-25] MEDS: EUCERIN CR 120 GM JAR EXT SCH (21:50)
[2019-03-26] MEDS: LEVOTHYROXINE SODIUM 150 MCG TABLET PO SCH (06:19)
[2019-03-26] MEDS: carvediloL 6.25 MG TAB PO SCH ×2 (08:19→20:00)
[2019-03-26] MEDS: FLUTICASONE/SALMETEROL 250/50 (ADVAIR) 14 PUFF/1 INHALER INH SCH ×2 (08:19→20:00)
[2019-03-26] MEDS: AMLODIPINE BESYLATE 5 MG TAB PO SCH (08:20)
[2019-03-26] MEDS: APIXABAN 2.5 MG TAB PO SCH ×2 (08:20→20:01)
[2019-03-26] MEDS: FOLIC ACID 1 MG TAB PO SCH (08:21)
[2019-03-26] MEDS: ASPIRIN 81 MG ECTAB PO SCH (08:21)
[2019-03-26] MEDS: VENLAFAXINE HCL XR 75 MG CAPXR PO SCH (08:21)
[2019-03-26] MEDS: TERBINAFINE CR 30 GM TUBE EXT SCH ×2 (08:22→20:01)
[2019-03-26] MEDS: EUCERIN CR 120 GM JAR EXT SCH ×2 (08:23→20:01)
[2019-03-26 09:26] LABS: Hematocrit (blood only) 31.9 % (37-47); Hemoglobin 9.9 g/dL (12.0-16.0); Mean Corpuscular Hemoglobin 28.9 pg (25-34); Mean Platelet Volume 10.2 fL (7.4-10.4); Platelet Count 199 K/uL (130-400); RDW Coefficient of Variation 16.6 % (11.5-14.5); RDW Standard Deviation 56.2 fL (36.4-46.3); Red Blood Count 3.43 M/uL (4.2-5.4)
[2019-03-26] MEDS: ONDANSETRON 4 MG TAB PO PRN (09:29)
[2019-03-26 10:00] LABS: BUN Creatinine Ratio 13.3 (10-20); Calcium 8.6 mg/dl (8.5-10.1); Creatinine Clr Calc Pharmacy 12.8 ml/min; Est GFR (African American) 14.6; Est GFR (Non-African American) 12.6; Potassium 4.6 mmol/L (3.5-5.1)
--- NOTE | 2019-03-26 11:11 | Nephrology Progress Note ---
Date of Service March 26, 2019 Assessment & Plan (1) RALPH (acute kidney injury): -- Creatinine stable at 3.3 w/ EGFR 12 cc/min. Hydration has resulted in mild CHF -- I have spoken w/ patient about AVF creation and IHD. She is agreeable to starting HD when necessary -- Will stop IVF and order 24 hour urine creatinine clearance -- Will consult Vascular Surgery on Thursday for IJ THC and initiation of HD (2) CKD (chronic kidney disease): -- Renal vascular disease. R kidney is atrophic/nonfunctional -- Baseline creatinine ~ 2.5 (3) Hypertension: -- Blood pressure is improved -- Avoid CARLOS/ARB due to RALPH -- Metoprolol changed to Carvedilol to improve BP management (4) Proteinuria: -- Outpatient paraprotein evaluation was negative Subjective Ms. Figueroa was seen and examined in her hospital room this morning. She tolerated IV hydration poorly. She developed dyspnea requiring titration of her oxygen from 2 to 4 L/min. CXR revealed mild pulmonary edema and small bilateral effusions. IVF has been stopped. Ms. Figueroa c/o fatigue Review of Systems Constitutional: no fever and no chills Eyes: no worsening vision and no problem reported Ear, Nose, Mouth, Throat: no problem reported Respiratory: + dyspnea; no cough Cardiovascular: no chest pain, no palpitations and no edema Gastrointestinal: no abdominal pain, no nausea, no vomiting and no diarrhea/loose stools Genitourinary: no dysuria and no hematuria Musculoskeletal: no back pain Integumentary: no rash Neurologic: no falls, no dizziness and no confusion Physical Exam Constitutional: + frail appearing Eyes: PERRL, conjunctivae normal, anicteric sclerae Neck: trachea midline, no thyromegaly Respiratory: normal respiratory effort, lungs clear to auscultation Cardiovascular: Rate/Rhythm: regular rate and regular rhythm Extremities: no edema (poor skin turgor) Gastrointestinal (Abdomen): normal bowel sounds, soft, nontender, no hepatosplenomegaly Musculoskeletal: Extremities: no cyanosis Skin: no rashes, warm and dry Neurologic: awake; not confused Results & Data Vital Signs (Past 12 Hours) Vital Signs Temp Pulse Pulse Resp BP Pulse Ox 03/26/19 07:39 36.5 C 93 H 20 149/66 H 90 03/25/19 23:41 89 142/70 H Laboratory Results Laboratory Tests 03/25/19 07:31 Sodium 134 L Potassium 4.6 Chloride 105 Carbon Dioxide 19 L BUN 43 H Creatinine 3.48 H Glucose 96 PG Care Time/CCT Total # of Minutes Spent Total Time Spent with Patient: Total time spent is greater than 50% in coordination of care (as documented) at patient's floor/unit and/or counseling patient: (1) CKD (chronic kidney disease) Chronic kidney disease stage: unspecified stage Qualified Code(s): N18.9 - Chronic kidney disease, unspecified
--- NOTE | 2019-03-26 23:06 | Hospitalist Progress Note ---
Date of Service March 26, 2019 Assessment & Plan (1) Hypoxia: Ongoing oxygen requirement despite stopping IV fluids. Pulmonary edema on chest x-ray.new oxygen requirement and chest x-ray suggestive of pulmonary edema. No white blood count or fevers to suggest pneumonia. (2) HFrEF (heart failure with reduced ejection fraction): Suspected cause of hypoxia above with pulmonary edema on chest x-ray. Due to overcorrection with IV fluids and stopping Lasix. As per nephrology planning on starting dialysis with IJ THC and initiation of HD on Thursday Increased carvedilol to 12.5 mg twice daily. No CARLOS inhibitor due to CKD. 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 (3) RALPH (acute kidney injury): Main reason patient was admitted, initially pre-renal 2/2 diuretic use and reduced oral intake and was initially improving with IV fluids. (4) CKD (chronic kidney disease): Chronic kidney disease stage IV Currently acute on chronic as above Appreciate nephrology management (5) Tinea pedis: Terbinafine cream BID Fungal cultures taken 03/24 positive for hyphae on GENARO, follow-up as outpatient. (6) Atrial fibrillation with RVR: No evidence on EKG out of atrial fibrillation, recently diagnosed in February. Metoprolol -> carvedilol for better BP control. Repeat echo as outpatient given significant cardiomyopathy (assumed ischemic although possibility decreased due to rate on last admission). Patient now accepting of anticoagulation for stroke prophylaxis, given CKD stage IV recommend Eliquis 2.5 mg twice daily Follow-up with cardiology on discharge (7) Diabetes mellitus with neuropathy: Unclear diagnosis given A1C 5.4. D/C BSG (8) Hypertension: Continue amlodipine/hydralazine. Metoprolol switched to carvedilol this admission for better BP control. (9) Hypothyroidism: Elevated TSH and free T4 suggestive of TSH-mediated hyperthyroidism but given currently on levothyroxine, possibly under treated hypothyroidism. She is asymptomatic and recommend TSH is repeated when she is well and will not adjust thyroid medication at this time as it has been labile in the past. (10) DVT prophylaxis: Eliquis 2.5 mg twice daily as above. SCDs. Full code as per patient wishes Dispo - plan to start on hemodialysis Subjective Patient reports it is at baseline. Denies short of breath but is visibly more short of breath and when she was admitted. She denies any chest pain. Reports her feet are much improving every day with terbinafine cream. Review of Systems Review of Systems: All systems reviewed & are unremarkable except as noted in HPI & below Physical Exam Constitutional: well developed, + obese and + frail appearing Eyes: normal visual herring by confrontation; no conjunctival abnormality ENMT: external ear and nose normal, oropharynx normal Mouth: + lip abnormality (Upper lip swollen) Neck: normal visual inspection and trachea midline Respiratory: + uses accessory muscles, + prolonged expiratory phase and symmetric chest movement; + abnormal respiratory effort, not tachypneic, no grunting, no nasal flaring, no pursed lip breathing and no stridor Auscultation: + diminished lung sounds (Bilateral bases); no crackles and no wheezes Cardiovascular: Rate/Rhythm: + irregularly irregular Heart Sounds: normal S1 and normal S2; no murmur Gastrointestinal (Abdomen): normal bowel sounds, soft, nontender, no hepatosplenomegaly Musculoskeletal: no cyanosis or clubbing, extremities motor strength 5/5 Skin: + nail abnormality (Onychomycoses thick on all toenails) Still some flaking of the skin especially on the heel however much improved since admission Neurologic: moves all extremities and awake; no focal motor deficits Motor/Sensory: no sensory deficit Psychiatric: A+Ox3, euthymic affect Results & Data Vital Signs (Past 12 Hours) Vital Signs Temp Pulse Resp BP Pulse Ox 03/26/19 16:18 97.5 F L 84 20 153/78 H 90 PG Care Time/CCT Total # of Minutes Spent Total Time Spent with Patient: Total time spent is greater than 50% in coordination of care (as documented) at patient's floor/unit and/or counseling patient: (1) CKD (chronic kidney disease) Chronic kidney disease stage: unspecified stage Qualified Code(s): N18.9 - Chronic kidney disease, unspecified (2) Tinea pedis Laterality: bilateral Qualified Code(s): B35.3 - Tinea pedis (3) Hypertension Hypertension type: unspecified Qualified Code(s): I10 - Essential (primary) hypertension
[2019-03-27] MEDS: LEVOTHYROXINE SODIUM 150 MCG TABLET PO SCH (05:57)
[2019-03-27 07:33] LABS: Hematocrit (blood only) 32.3 % (37-47); Hemoglobin 10.1 g/dL (12.0-16.0); Mean Corpuscular Hemoglobin 29.1 pg (25-34); Mean Corpuscular Hgb Conc 31.3 g/dL (32-36); Mean Corpuscular Volume 93.1 fL (80-100); Mean Platelet Volume 10.5 fL (7.4-10.4); Platelet Count 210 K/uL (130-400); RDW Coefficient of Variation 16.5 % (11.5-14.5); Red Blood Count 3.47 M/uL (4.2-5.4); White Blood Count 4.83 K/uL (4.8-10.8)
[2019-03-27] MEDS: FLUTICASONE/SALMETEROL 250/50 (ADVAIR) 14 PUFF/1 INHALER INH SCH ×2 (07:42→20:07)
[2019-03-27] MEDS: carvediloL 6.25 MG TAB PO SCH ×2 (07:42→20:08)
[2019-03-27] MEDS: AMLODIPINE BESYLATE 5 MG TAB PO SCH (07:43)
[2019-03-27] MEDS: ASPIRIN 81 MG ECTAB PO SCH (07:43)
[2019-03-27] MEDS: APIXABAN 2.5 MG TAB PO SCH ×2 (07:44→20:55)
[2019-03-27] MEDS: FOLIC ACID 1 MG TAB PO SCH (07:44)
[2019-03-27] MEDS: VENLAFAXINE HCL XR 75 MG CAPXR PO SCH (07:44)
[2019-03-27] MEDS: EUCERIN CR 120 GM JAR EXT SCH ×2 (07:47→20:09)
[2019-03-27] MEDS: TERBINAFINE CR 30 GM TUBE EXT SCH ×2 (07:48→20:09)
--- NOTE | 2019-03-27 09:34 | Nephrology Progress Note ---
Date of Service March 27, 2019 Assessment & Plan (1) RALPH (acute kidney injury): -- Creatinine stable at 3.3 w/ EGFR 12 cc/min. Hydration has resulted in mild CHF -- I have spoken w/ patient about AVF creation and IHD. She is agreeable to starting HD when necessary -- IVF stopped. 24 hour urine creatinine clearance is pending -- Will consider Vascular Surgery consultation on Thursday for IJ THC and initiation of HD (2) CKD (chronic kidney disease): -- Renal vascular disease. R kidney is atrophic/nonfunctional -- Baseline creatinine ~ 2.5 (3) Hypertension: -- Blood pressure is improved -- Avoid CARLOS/ARB due to RALPH -- Metoprolol changed to Carvedilol to improve BP management (4) Proteinuria: -- Outpatient paraprotein evaluation was negative Subjective Ms. Figueroa was seen & examined in her hospital room this morning. She remains on O2 at 2 L/min NC and develops mild WHIPPLE. Review of Systems Constitutional: + weakness; no fever and no chills Eyes: no worsening vision and no problem reported Ear, Nose, Mouth, Throat: no problem reported Respiratory: + dyspnea; no cough Cardiovascular: no chest pain, no palpitations and no edema Gastrointestinal: no abdominal pain, no nausea, no vomiting and no diarrhea/loose stools Genitourinary: no dysuria and no hematuria Musculoskeletal: no back pain Integumentary: no rash Neurologic: no falls, no dizziness and no confusion Physical Exam Constitutional: + frail appearing Eyes: PERRL, conjunctivae normal, anicteric sclerae ENMT: Mouth: + dry oral mucous membranes Neck: trachea midline, no thyromegaly Respiratory: normal respiratory effort, lungs clear to auscultation Cardiovascular: Rate/Rhythm: regular rate and regular rhythm Extremities: no edema (poor skin turgor) Gastrointestinal (Abdomen): normal bowel sounds, soft, nontender, no hepatosplenomegaly Musculoskeletal: Extremities: no cyanosis Skin: no rashes, warm and dry Neurologic: awake; not confused Results & Data Vital Signs (Past 12 Hours) Vital Signs Temp Pulse Resp BP BP Pulse Ox 03/27/19 08:00 36.6 C 89 20 144/76 H 92 03/27/19 00:18 37.0 C 85 19 103/65 94 Laboratory Results Laboratory Tests 03/26/19 03/27/19 09:04 07:16 WBC 4.83 Hgb 10.1 L Hct 32.3 L Plt Count 210 Sodium 132 L Potassium 4.6 Chloride 102 Carbon Dioxide 21 BUN 45 H Creatinine 3.35 H Glucose 112 H PG Care Time/CCT Total # of Minutes Spent Total Time Spent with Patient: Total time spent is greater than 50% in coordination of care (as documented) at patient's floor/unit and/or counseling patient: (1) CKD (chronic kidney disease) Chronic kidney disease stage: unspecified stage Qualified Code(s): N18.9 - Chronic kidney disease, unspecified
[2019-03-27 13:38] LABS: Calcium 8.8 mg/dl (8.5-10.1); Creatinine Clr Calc Pharmacy 12.3 ml/min; Est GFR (African American) 13.9; Potassium 4.7 mmol/L (3.5-5.1)
[2019-03-27 22:29] LABS: Patient Weight 72.6 kg
[2019-03-27 23:21] LABS: Creatinine Clearance Urine 4.7 ml/min (88-128)
--- NOTE | 2019-03-27 23:48 | Hospitalist Progress Note ---
Date of Service March 27, 2019 Assessment & Plan (1) Hypoxia: Advised patient to try oxymask if nasal cannula not comfortable. Hypoxia secondary to pulmonary edema after IV fluids given to reverse pre-renal RALPH causing pulmonary edema. (2) HFrEF (heart failure with reduced ejection fraction): Unclear how much contributed towards pulmonary edema. Place back on telemetry to allow uptitration of carvedilol as below. No CARLOS inhibitor due to CKD. Repeat echo since prior in February was during tachycardia episode. (3) RALPH (acute kidney injury): Main reason patient was admitted, initially pre-renal 2/2 diuretic use and reduced oral intake and was initially improving with IV fluids, however now developed pulmonary edema (4) CKD (chronic kidney disease): Chronic kidney disease stage IV Currently acute on chronic as above Planning on possible IJ THC tomorrow with vascular surgery consult. Appreciate nephrology management (5) Tinea pedis: Terbinafine cream BID Fungal cultures taken 03/24 positive for hyphae on GENARO, follow-up as outpatient. (6) Atrial fibrillation with RVR: Will place back on telemetry as variable heart rate and need to up titrate carvedilol but will defer this pending 24 hour trend. Started Eliquis for stroke prophylaxis at 2.5mg BID Follow-up with cardiology on discharge (7) Diabetes mellitus with neuropathy: Unclear diagnosis given A1C 5.4. D/C BSG (8) Hypertension: Continue amlodipine/hydralazine. Better BP control after switching metoprolol to carvedilol. (9) Hypothyroidism: Elevated TSH and free T4 suggestive of TSH-mediated hyperthyroidism but given currently on levothyroxine, possibly under treated hypothyroidism. Asymptomatic. Repeat TSH when well as outpatient given previously labile. (10) DVT prophylaxis: Eliquis 2.5 mg twice daily as above. SCDs. Full code as per patient wishes Dispo - continued stay due to hypoxia, vascular consult and possible hemodialy sis Subjective Patient continues to take oxygen off as she does not like to be moisture in her nose. Denies shortness of breath, chest pain, orthopnea, PND, claudication or palpitations. She reports her foot continues to improve with the terbinafine cream. Review of Systems Review of Systems: All systems reviewed & are unremarkable except as noted in HPI & below Physical Exam Constitutional: well developed, + obese and + frail appearing Eyes: normal visual herring by confrontation; no conjunctival abnormality ENMT: external ear and nose normal, oropharynx normal Mouth: + lip abnormality (Upper lip swollen) Neck: trachea midline, no thyromegaly normal visual inspection and trachea midline Respiratory: normal respiratory effort, lungs clear to auscultation + uses accessory muscles, + prolonged expiratory phase and symmetric chest movement; + abnormal respiratory effort, not tachypneic, no grunting, no nasal flaring, no pursed lip breathing and no stridor Auscultation: + diminished lung sounds (Bilateral bases); no crackles and no wheezes Cardiovascular: Rate/Rhythm: + irregularly irregular Heart Sounds: normal S1 and normal S2; no murmur Gastrointestinal (Abdomen): normal bowel sounds, soft, nontender, no hepatosplenomegaly Skin: + nail abnormality (Onychomycoses thick on all toenails) Neurologic: moves all extremities and awake; no focal motor deficits Motor/Sensory: no sensory deficit Psychiatric: A+Ox3, euthymic affect Results & Data Vital Signs (Past 12 Hours) Vital Signs Temp Pulse Pulse Resp BP BP Pulse Ox 03/27/19 22:25 97.9 F 83 18 132/72 92 03/27/19 20:34 97.7 F 78 18 134/66 91 03/27/19 15:27 98.1 F 75 18 141/81 H 92 03/27/19 14:56 69 PG Care Time/CCT Total # of Minutes Spent Total Time Spent with Patient: Total time spent is greater than 50% in coordination of care (as documented) at patient's floor/unit and/or counseling patient: (1) CKD (chronic kidney disease) Chronic kidney disease stage: unspecified stage Qualified Code(s): N18.9 - Chronic kidney disease, unspecified (2) Tinea pedis Laterality: bilateral Qualified Code(s): B35.3 - Tinea pedis (3) Hypertension Hypertension type: unspecified Qualified Code(s): I10 - Essential (primary) hypertension
[2019-03-28] MEDS: LEVOTHYROXINE SODIUM 150 MCG TABLET PO SCH (05:35)
[2019-03-28] MEDS: PERFLUTREN LIPID MICROSPHERE (DEFINITY) IV ONE ×2 (07:20→07:32)
[2019-03-28] MEDS: FLUTICASONE/SALMETEROL 250/50 (ADVAIR) 14 PUFF/1 INHALER INH SCH ×2 (08:39→20:01)
[2019-03-28] MEDS: AMLODIPINE BESYLATE 5 MG TAB PO SCH (08:40)
[2019-03-28] MEDS: EUCERIN CR 120 GM JAR EXT SCH ×2 (08:40→20:02)
[2019-03-28] MEDS: APIXABAN 2.5 MG TAB PO SCH ×2 (08:40→20:02)
[2019-03-28] MEDS: ASPIRIN 81 MG ECTAB PO SCH (08:41)
[2019-03-28] MEDS: carvediloL 6.25 MG TAB PO SCH ×2 (08:41→20:02)
[2019-03-28] MEDS: VENLAFAXINE HCL XR 75 MG CAPXR PO SCH (08:41)
[2019-03-28] MEDS: TERBINAFINE CR 30 GM TUBE EXT SCH ×2 (08:42→20:02)
[2019-03-28] MEDS: FOLIC ACID 1 MG TAB PO SCH (08:42)
--- NOTE | 2019-03-28 10:02 | Nephrology Progress Note ---
Date of Service March 28, 2019 Assessment & Plan (1) RALPH (acute kidney injury): 78 y o F with advanced CKD with atrophic kidney admitted with RALPH and bleeding from foot with dry scaly skin. Developed volume overload and pulmonary congestion with IV fluid with h/o CHF. Off of diuretics, seems volume overlaod with relatively stable renal function and electrolyte. -- no acute indication for HD now, will start on Bumex 1 mg IV BID and plan to switch orally. If renal function worsen, will get TDC and start on HD otherwise monitor as an out pt and get AVF -- check iron study, may need venofer and or JEIMY --start on calcitriol --left arm nephrology precaution. Will follow (2) CKD (chronic kidney disease): -- Renal vascular disease. R kidney is atrophic/nonfunctional -- Baseline creatinine ~ 2.5 Subjective Nighat was seen and examined in her room this am. Denies any sepcific symptoms, no SOB, CP. Appetite decent. Decent UO. BP slightly elevated. Renal function , electrolyte acceptable. Review of Systems Review of Systems: All systems reviewed & are unremarkable except as noted in HPI & below Physical Exam Constitutional: + ill appearing and + edematous; no acute distress Respiratory: Auscultation: lungs clear to auscultation bilaterally Cardiovascular: Rate/Rhythm: regular rate and regular rhythm Heart Sounds: normal S1 and normal S2 Extremities: + edema Neurologic: moves all extremities and awake; not confused Psychiatric: A+Ox3, euthymic affect Results & Data Vital Signs (Past 12 Hours) Vital Signs Temp Pulse Pulse Resp BP BP Pulse Ox 03/28/19 07:23 81 03/28/19 04:00 36.7 C 99 H 18 148/76 H 91 03/28/19 02:35 86 03/27/19 22:25 36.6 C 83 18 132/72 92 PG Care Time/CCT Total # of Minutes Spent Total Time Spent with Patient: Total time spent is greater than 50% in coordination of care (as documented) at patient's floor/unit and/or counseling patient: (1) CKD (chronic kidney disease) Chronic kidney disease stage: unspecified stage Qualified Code(s): N18.9 - Chronic kidney disease, unspecified
[2019-03-28] MEDS ORDERED: BUMETANIDE 1 MG in SYRINGE 0 ML IV ONE (11:00)
[2019-03-28 11:29] LABS: Ferritin 86.3 ng/ml (8-388)
[2019-03-28] MEDS: CALCITRIOL 0.25 MCG CAPSULE PO SCH (12:41)
[2019-03-28] MEDS: BUMETANIDE 1 MG in SYRINGE 0 ML IV SCH (16:43)
--- NOTE | 2019-03-28 17:02 | Hospitalist Progress Note ---
Date of Service March 28, 2019 Assessment & Plan (1) Acute on chronic systolic heart failure: in setting of CKD 5 and RALPH. nephrology assistance appreciated. trying bumex in gustavo of lasix for diuresis. if no response then may need dialysis catheter placed for initiation of HD. cont beta letty. (2) RALPH (acute kidney injury): ongoing see below CKD (3) CKD (chronic kidney disease): Chronic kidney disease stage V. baseline Cr 2.5 to 3. Now with superimposed RALPH with volume overload state. Appreciate nephrology assistance. May need initiation of dialysis soon. BMP am. (4) Tinea pedis: Terbinafine cream BID Fungal cultures taken 03/24 positive for hyphae on GENARO, follow-up as outpatient. (5) Atrial fibrillation with RVR: Rates improved. Cont BB. Cont renally adjusted eliquis BID. (6) Diabetes mellitus with neuropathy: is patient truly a diabetic. no hemoglobin a1c is over 6%. follow. (7) Hypertension: Continue amlodipine/hydralazine/coreg. Controlled. (8) Hypothyroidism: Labile TSHs of late. Prior TSH was depressed, now TSH this admission is elevated. Uncertain cause - suspect noncompliance with meds. Would simply leave dose as is and repeat the TSH in 3-4 weeks. (9) DVT prophylaxis: Eliquis 2.5 mg twice daily PT, OT Subjective patient states she doesn't recall any conversation about hemodialysis w/ nephrology (??). however she says "I would like to hold off on that as long as I can." she reports "Feeling really good today" and denied any complaints except for WHIPPLE. Review of Systems Constitutional: no fever Respiratory: + dyspnea on exertion Cardiovascular: no chest pain Gastrointestinal: no abdominal pain Physical Exam Constitutional: no acute distress and no altered mental status ENMT: external ear and nose normal, oropharynx normal Respiratory: no respiratory distress Auscultation: + rales (scattered) and + wheezes Cardiovascular: Rate/Rhythm: regular rate and + irregularly irregular Heart Sounds: normal S1 and normal S2 Vessels: + JVD, posterior tibial pulses present and dorsalis pedis pulses present Extremities: no edema Gastrointestinal (Abdomen): normal bowel sounds, soft, nontender, no hepatosplenomegaly Skin: upper lip with hemangioma? Psychiatric: A+Ox3, euthymic affect Results & Data Vital Signs (Past 12 Hours) Vital Signs Temp Pulse Pulse Resp BP BP Pulse Ox 03/28/19 15:34 36.3 C L 77 18 119/75 90 03/28/19 15:21 76 03/28/19 14:45 36.4 C L 78 18 110/75 91 03/28/19 11:21 36.5 C 83 18 143/87 H 90 03/28/19 07:23 81 Laboratory Results Laboratory Results - last 24 hr 03/27/19 03/28/19 21:15 10:51 Iron 30 L Transferrin 222 Transferrin % Sat 10 L Ferritin 86.3 Urine Collection Time 24 Urine Total Volume 200 Urine Creatinine 118.0 Ur Creatinine 24 Hour 0.2 L Creatinine Clearance 4.7 L PG Care Time/CCT Total # of Minutes Spent Total Time Spent with Patient: Total time spent is greater than 50% in coordination of care (as documented) at patient's floor/unit and/or counseling patient: (1) CKD (chronic kidney disease) Chronic kidney disease stage: unspecified stage Qualified Code(s): N18.9 - Chronic kidney disease, unspecified (2) Tinea pedis Laterality: bilateral Qualified Code(s): B35.3 - Tinea pedis (3) Diabetes mellitus with neuropathy Diabetes mellitus type: type 2 Diabetes mellitus shelter insulin use: without salt refiner use Qualified Code(s): E11.40 - Type 2 diabetes mellitus with diabetic neuropathy, unspecified (4) Hypertension Hypertension type: unspecified Qualified Code(s): I10 - Essential (primary) hypertension (5) Hypothyroidism Hypothyroidism type: acquired Qualified Code(s): E03.9 - Hypothyroidism, unspecified
[2019-03-29] MEDS: LEVOTHYROXINE SODIUM 150 MCG TABLET PO SCH (05:28)
[2019-03-29 06:42] LABS: Hematocrit (blood only) 32.9 % (37-47); Hemoglobin 10.4 g/dL (12.0-16.0); Mean Corpuscular Hemoglobin 28.9 pg (25-34); Mean Corpuscular Hgb Conc 31.6 g/dL (32-36); Mean Corpuscular Volume 91.4 fL (80-100); Mean Platelet Volume 10.7 fL (7.4-10.4); Platelet Count 232 K/uL (130-400); RDW Coefficient of Variation 16.2 % (11.5-14.5); RDW Standard Deviation 54.1 fL (36.4-46.3)
[2019-03-29 07:09] LABS: Albumin Level 3.5 gm/dl (3.4-5.0); BUN Creatinine Ratio 12.6 (10-20); Calcium 8.4 mg/dl (8.5-10.1); Creatinine Clr Calc Pharmacy 13.1 ml/min; Est GFR (African American) 14.1; Est GFR (Non-African American) 12.2; Magnesium 2.7 mg/dl (1.8-2.4); Potassium 4.4 mmol/L (3.5-5.1)
[2019-03-29 07:10] LABS: Phosphorus 4.1 mg/dl (2.5-4.9)
[2019-03-29] MEDS: FLUTICASONE/SALMETEROL 250/50 (ADVAIR) 14 PUFF/1 INHALER INH SCH ×2 (08:23→20:03)
[2019-03-29] MEDS: FOLIC ACID 1 MG TAB PO SCH (08:26)
[2019-03-29] MEDS: ASPIRIN 81 MG ECTAB PO SCH (08:26)
[2019-03-29] MEDS: VENLAFAXINE HCL XR 75 MG CAPXR PO SCH (08:27)
[2019-03-29] MEDS: AMLODIPINE BESYLATE 5 MG TAB PO SCH (08:29)
[2019-03-29] MEDS: APIXABAN 2.5 MG TAB PO SCH ×2 (08:30→20:06)
[2019-03-29] MEDS: EUCERIN CR 120 GM JAR EXT SCH ×2 (08:33→20:06)
[2019-03-29] MEDS: BUMETANIDE 1 MG in SYRINGE 0 ML IV SCH (08:34)
[2019-03-29] MEDS: carvediloL 6.25 MG TAB PO SCH ×2 (08:39→20:05)
[2019-03-29] MEDS: TERBINAFINE CR 30 GM TUBE EXT SCH ×2 (08:42→20:06)
[2019-03-29] MEDS: BUMETANIDE 2 MG in SYRINGE 0 ML IV SCH ×2 (09:55→16:58)
[2019-03-29] MEDS: IRON SUCROSE 200 MG in 0.9 % SODIUM CHLORIDE 100 ML IV SCH (09:55)
--- NOTE | 2019-03-29 11:59 | Nephrology Progress Note ---
Date of Service March 29, 2019 Assessment & Plan (1) RALPH (acute kidney injury): 78 y o F with advanced CKD with atrophic kidney admitted with RALPH and bleeding from foot with dry scaly skin. Developed volume overload and pulmonary congestion with IV fluid with h/o CHF. Off of diuretics, seems volume overload with relatively stable renal function and electrolyte. --will increase Bumex to 2 mg IV BID.. If renal function worsen or remained oliguric, will get TDC and start on HD --will do vein mapping and consult vascular surgery for evaluation for AV fistula placement -- start on IV venofer for total 1 g --continue on calcitriol --left arm nephrology precaution. Will follow (2) CKD (chronic kidney disease): -- Renal vascular disease. R kidney is atrophic/nonfunctional -- Baseline creatinine ~ 2.5 Alan Disla was seen and examined in her room this am. She was awake alert but mostly kept her eyes closed and did not communicate. Nurse told that she was awake earlier in the morning and completed her breakfast. Renal function , electrolyte acceptable. Net positive more than 1 L with low urine output on Bumex 1 mg twice a day. Review of Systems Review of Systems: Unobtainable due to mental health condition Physical Exam Constitutional: + ill appearing and + edematous; no acute distress Respiratory: Auscultation: lungs clear to auscultation bilaterally Cardiovascular: Rate/Rhythm: regular rate and regular rhythm Heart Sounds: normal S1 and normal S2 Extremities: + edema Neurologic: moves all extremities and awake; not confused Results & Data Vital Signs (Past 12 Hours) Vital Signs Temp Pulse Pulse Pulse Resp BP Pulse Ox 03/29/19 11:03 36.4 C L 56 L 18 104/85 90 03/29/19 10:31 79 19 120/70 90 03/29/19 08:03 72 03/29/19 07:23 36.4 C L 81 20 153/69 H 92 03/29/19 03:54 85 20 118/79 3 L 03/29/19 00:32 74 03/29/19 00:30 90 PG Care Time/CCT Total # of Minutes Spent Total Time Spent with Patient: Total time spent is greater than 50% in coordination of care (as documented) at patient's floor/unit and/or counseling patient: (1) CKD (chronic kidney disease) Chronic kidney disease stage: unspecified stage Qualified Code(s): N18.9 - Chronic kidney disease, unspecified
--- NOTE | 2019-03-29 15:04 | Ultrasound Report ---
BILATERAL UPPER EXTREMITY VENOUS MAPPING CLINICAL HISTORY: for AVf placement COMPARISON STUDY: No previous studies for comparison. FINDINGS: The bilateral internal jugular, subclavian, cephalic and basilic veins are patent. No throm bus is identified within these vessels. For detailed measurements, please see PACS. The right cephali c vein was not well visualized at the level of the mid upper arm. Otherwise, this vessel ranged in ca liber from 1.4 mm to 6.4 mm and depth from skin to vessel ranged from 3.4 mm to 15.1 mm. Right basili c vein ranges in caliber from 2.2 mm to 6.5 mm. Depth from skin ranged from 3.8 mm to 18.2 mm. Left c ephalic vein was not well visualized at the level of the shoulder. Otherwise, this vessel ranged in c aliber from 0.7 mm to 4.1 mm and depth from skin to range from 1.5 mm to 14.9 mm. Left basilic vein w as not well seen at the level of the wrist. Otherwise, the caliber ranged from 1.9 mm to 6.8 mm. Dept h from skin ranged from 6.4 to 26.5 mm. IMPRESSION: 1. No venous thrombus within the bilateral internal jugular, subclavian, cephalic and basilic veins. 2. For detailed measurements, please see PACS. Electronically signed by: Lawrence Patricio M.D. 03/29/2019 3:03 PM
--- NOTE | 2019-03-29 20:51 | Hospitalist Progress Note ---
Date of Service March 29, 2019 Assessment & Plan (1) Acute on chronic systolic heart failure: in setting of CKD 5 and RALPH - ongoing. no improvement in her volume overloaded state with escalating doses of IV diuretic. nephrology assistance appreciated. suspect nephrology will place dialysis catheter tomorrow for initiation of HD. cont beta letty. patient and daughter (latter by phone) counseled about likely need for HD. (2) RALPH (acute kidney injury): ongoing see below CKD (3) CKD (chronic kidney disease): Chronic kidney disease stage V. baseline Cr 2.5 to 3. On basis of renal vascular disease per nephrology records. Chronic, significant proteinuria seen on serial u/a's over the years. Now with superimposed RALPH with volume overload state. Appreciate nephrology assistance. No significant response to escalating doses of IV bumex. Probable initiation of dialysis next 1-2 days. Doppler of arms for vein mapping wnl. BMP am. (4) Tinea pedis: Terbinafine cream BID Fungal cultures taken 03/24 positive for hyphae on GENARO, follow-up as outpatient. Continue local care with dressings, etc (5) Atrial fibrillation with RVR: Rates acceptable. Cont BB. Cont renally adjusted eliquis BID. (6) Diabetes mellitus with neuropathy: is patient truly a diabetic? no hemoglobin a1c over 6% last 2-3 years. previous FSBS's were all <125. does not appear she is a diabetic. (7) Hypertension: Continue amlodipine/hydralazine/coreg. Controlled. (8) Hypothyroidism: Labile TSHs of late. Prior TSH was depressed, now TSH this admission is elevated. Uncertain cause - suspect noncompliance with meds. Would simply leave dose as is and repeat the TSH in 3-4 weeks. (9) Hyponatremia: multi-factorial. h/o SIADH. now on larger amounts of diuretics in face of RALPH. BMP am. (10) Alcohol abuse: daughter reports regular, chronic alcohol abuse over long period of time. will genetic counsellor patient on importance of abstinence. no signs/symptoms of etoh withdrawal. (11) DVT prophylaxis: Eliquis 2.5 mg twice daily PT, OT daughter extensively updated by phone 03/29 counseled her that HD is likely imminent for her mother Subjective patient very nervous and anxious about the possibility of going on dialysis. she said "how do I live my life if I'm on dialysis?" staff report very poor UOP today - voiding only 100cc at a time and infrequently. patient downplays her pulmonary symptoms but staff report that her O2 sats drop very quickly below 90% with any activity or if she removes her O2 NC. denies any new complaints. Review of Systems Constitutional: no fever Respiratory: + dyspnea on exertion; no cough and no dyspnea Cardiovascular: no chest pain Gastrointestinal: no abdominal pain Psychiatric: + anxiety Physical Exam Constitutional: no acute distress and no altered mental status ENMT: external ear and nose normal, oropharynx normal Respiratory: no respiratory distress Auscultation: + rales (scattered) and + wheezes Cardiovascular: Rate/Rhythm: regular rate and + irregularly irregular Heart Sounds: normal S1, normal S2 and + murmur (2/6 LSB (systolic)) Vessels: + JVD (to the jaw), posterior tibial pulses present and dorsalis pedis pulses present Extremities: no edema Gastrointestinal (Abdomen): normal bowel sounds, soft, nontender, no hepatosplenomegaly Skin: venous stasis/hemangioma of upper lip of face Psychiatric: Orientation: alert and oriented x 3 Affect: + anxious affect Results & Data Vital Signs (Past 12 Hours) Vital Signs Temp Pulse Pulse Resp BP Pulse Ox 03/29/19 19:17 36.2 C L 90 19 133/82 92 03/29/19 15:58 70 03/29/19 15:04 36.2 C L 81 20 117/65 91 03/29/19 11:03 36.4 C L 56 L 18 104/85 90 03/29/19 10:31 79 19 120/70 90 Laboratory Results Laboratory Results - last 24 hr 03/29/19 03/29/19 05:54 05:54 WBC 8.50 RBC 3.60 L Hgb 10.4 L Hct 32.9 L MCV 91.4 MCH 28.9 MCHC 31.6 L RDW Std Deviation 54.1 H RDW Coeff of Carlo 16.2 H Plt Count 232 MPV 10.7 H Sodium 128 L Potassium 4.4 Chloride 98 Carbon Dioxide 21 Anion Gap 9.0 BUN 43 H Creatinine 3.44 H Est Cr Clr Drug Dosing 13.1 Est GFR ( Amer) 14.1 Est GFR (Non-Af Amer) 12.2 BUN/Creatinine Ratio 12.6 Glucose 96 Calcium 8.4 L Phosphorus 4.1 Magnesium 2.7 H Albumin 3.5 PG Care Time/CCT Total # of Minutes Spent Total Time Spent with Patient: Total time spent is greater than 50% in coordination of care (as documented) at patient's floor/unit and/or counseling patient: (1) Tinea pedis Laterality: bilateral Qualified Code(s): B35.3 - Tinea pedis (2) Hypothyroidism Hypothyroidism type: acquired Qualified Code(s): E03.9 - Hypothyroidism, unspecified (3) CKD (chronic kidney disease) Chronic kidney disease stage: unspecified stage Qualified Code(s): N18.9 - Chronic kidney disease, unspecified (4) Diabetes mellitus with neuropathy Diabetes mellitus detention insulin use: without detention use Diabetes mellitus type: type 2 Qualified Code(s): E11.40 - Type 2 diabetes mellitus with diabetic neuropathy, unspecified (5) Hypertension Hypertension type: unspecified Qualified Code(s): I10 - Essential (primary) hypertension
[2019-03-30] MEDS: LEVOTHYROXINE SODIUM 150 MCG TABLET PO SCH (06:21)
[2019-03-30] MEDS: FLUTICASONE/SALMETEROL 250/50 (ADVAIR) 14 PUFF/1 INHALER INH SCH ×2 (07:35→22:02)
[2019-03-30] MEDS: carvediloL 6.25 MG TAB PO SCH ×2 (07:38→22:04)
[2019-03-30] MEDS: VENLAFAXINE HCL XR 75 MG CAPXR PO SCH (07:39)
[2019-03-30] MEDS: ASPIRIN 81 MG ECTAB PO SCH (07:39)
[2019-03-30] MEDS: APIXABAN 2.5 MG TAB PO SCH (07:40)
[2019-03-30] MEDS: EUCERIN CR 120 GM JAR EXT SCH ×2 (07:41→22:05)
[2019-03-30] MEDS: FOLIC ACID 1 MG TAB PO SCH (07:41)
[2019-03-30] MEDS: AMLODIPINE BESYLATE 5 MG TAB PO SCH (07:43)
[2019-03-30] MEDS: TERBINAFINE CR 30 GM TUBE EXT SCH ×2 (07:43→22:05)
[2019-03-30 07:44] LABS: Albumin Level 3.2 gm/dl (3.4-5.0); BUN Creatinine Ratio 13.4 (10-20); Calcium 8.4 mg/dl (8.5-10.1); Creatinine Clr Calc Pharmacy 13.2 ml/min; Est GFR (African American) 14.2; Est GFR (Non-African American) 12.2; Phosphorus 4.1 mg/dl (2.5-4.9); Potassium 4.2 mmol/L (3.5-5.1)
[2019-03-30] MEDS: CALCITRIOL 0.25 MCG CAPSULE PO SCH (07:44)
[2019-03-30] MEDS: BUMETANIDE 2 MG in SYRINGE 0 ML IV SCH ×2 (07:46→17:04)
[2019-03-30] MEDS: IRON SUCROSE 200 MG in 0.9 % SODIUM CHLORIDE 100 ML IV SCH (07:52)
--- NOTE | 2019-03-30 09:34 | Consultation ---
Date of Consultation March 30, 2019 Assessment & Plan (1) End stage chronic kidney disease: Pt with poor renal fxn, not yet on HD. Pt discussed with Dr Walker, who also reviewed pt's US. Vein mapping US is inadequate for surgical planning. Will plan to see in office as outpt with new vein mapping to discuss AVF creation. Pt is agreeable. Requested that we contact her daughter, Linda, to set up appts Patient was seen, examined, and chart reviewed. Agree with exam and treatment plan of the Vascular PA. History of Present Illness Reason for Consultation: ESRD, eval for AVF creation Requesting Physician: Kati Attending Physician: Rober Roberson History of Present Illness 78 yo f with multiple medical problems, including CHF, CKD, pulmonary HTN, hyponatremia, a fib with RVR, DMII, HTN, admitted with acute on chronic kidney disease, seen in consulation today to eval for AVF creation. Pt had already been discussed with Dr Hassan with plans to be set up as an outpt for AVF creation after discharge. Pt admits WHIPPLE and edema and malaise. States feeling improved. Denies URIAS, fever, chest pain, SOB at rest, abd pain, N/V, rest pain, claudication, other complaints. Allergies Allergy/AdvReac Type Severity Reaction Status Date / Time doxycycline Allergy Unknown Unknown Unverified 03/03/19 13:26 labetalol Allergy Unknown Unknown Unverified 03/03/19 13:26 lorazepam Allergy Unknown Unknown Unverified 03/03/19 13:26 Pork/Porcine Containing Allergy Unknown unknown Unverified 03/03/19 13:26 Products tetracycline Allergy Unknown unknown(not Unverified 03/03/19 13:26 100% sure if she's allergic to it) tramadol AdvReac Unknown dizzy, Verified 03/03/19 13:26 emesis Home Medications Home Medications Medication Instructions Recorded Confirmed Type mupirocin 2 % topical ointment 1 appln TOP BID #15 gm 01/26/19 03/21/19 Rx fluticasone 250 mcg-salmeterol 50 1 puffs INH Q12H #60 ea 01/28/19 03/21/19 Rx mcg/dose blistr powdr for inhalation hydralazine 25 mg tablet 25 mg PO TID #90 tab 01/28/19 03/21/19 Rx ranitidine 150 mg capsule 150 mg PO BID #60 cap 01/28/19 03/21/19 Rx amlodipine 10 mg PO QAM 02/13/19 03/21/19 History aspirin 81 mg PO QAM 02/13/19 03/21/19 History cholecalciferol (vitamin D3) 400 units PO QAM 02/13/19 03/21/19 History folic acid 1 mg PO QAM 02/13/19 03/21/19 History furosemide 40 mg PO QAM 02/13/19 03/21/19 History levothyroxine 150 mcg PO QAM 02/13/19 03/21/19 History venlafaxine 75 mg PO QAM 02/13/19 03/21/19 History vitamin B complex [B 1 tab PO QAM 02/13/19 03/21/19 History Complex-Vitamin B12] sodium bicarbonate 650 mg PO BID #60 tab 02/14/19 03/21/19 Rx metoprolol tartrate 25 mg PO BID 03/21/19 03/21/19 History Patient History Medical History Psoriasis Diabetes mellitus with neuropathy (Chronic) Hypertension (Chronic) Hypothyroidism (Chronic) Proteinuria Anemia Anemia associated with chronic renal failure Acute kidney injury superimposed on chronic kidney disease Chronic kidney disease (CKD) stage G4/A2, severely decreased glomerular filtration rate (GFR) between 15-29 mL/min/1.73 square meter and albuminuria creatinine ratio between 30-299 mg/g Dehydration Gastroenteritis Hypertension (Acute) SIADH (syndrome of inappropriate ADH production) Social History Preferred Language: Sinhala Communication Ability: Effective Cat Dog Or Other Pet Groomer Required: No Beliefs That Will Affect Care: None marital status: Single Current Living Situation: Alone Feels Safe at Home: Yes Smoking Status: Never smoker Hx Alcohol Use: No Hx Substance Use: No Review of Systems Review of Systems: All systems reviewed & are unremarkable except as noted in HPI & below Physical Exam Constitutional: WD/WN, vitals as above well developed, well nourished, + ill appearing, + obese, + frail appearing, well groomed, cooperative, comfortable and + lethargic; not in distress and not combative Eyes: PERRL, conjunctivae normal, anicteric sclerae EOM intact bilaterally ENMT: external ear and nose normal, oropharynx normal Nose: + facial exam abnormality (central upper lip edema); no nasal discharge Neck: trachea midline, no thyromegaly no neck crepitus and neck nontender Respiratory: normal respiratory effort, lungs clear to auscultation able to speak in complete sentences; does not use accessory muscles and no cough Auscultation: lungs clear to auscultation bilaterally and + diminished lung sounds; no wheezes Cardiovascular: Rate/Rhythm: + irregularly irregular Heart Sounds: no gallop and no murmur Vessels: + carotid bruit, femoral pulses present, posterior tibial pulses present, dorsalis pedis pulses present, brachial pulses present and radial pulses present; no femoral bruit and + abnormal peripheral pulses Extremities: normal capillary refill, + pedal edema and + edema (generalized edema, BUE/abd/BLE) Gastrointestinal (Abdomen): normal bowel sounds, soft, nontender, no hepatosplenomegaly Inspection/Auscultation: abdomen normal to inspection and normal bowel sounds; no abdominal edema Percussion/Palpation: abdomen soft; abdomen nontender, no guarding and abdomen not rigid Musculoskeletal: no cyanosis or clubbing, extremities motor strength 5/5 Head/Neck/Chest: normocephalic, head atraumatic and neck supple Extremities: extremities normal to inspection and strength 5/5 throughout; full ROM of extremities and no clubbing Skin: no rashes, warm and dry normal turgor; no rashes, no lesions, no ulcers, no induration, no erythema, no eschar, no excoriations and no mottling Neurologic: moves all extremities and awake; no focal motor deficits and not confused Speech / Cognition: no expressive aphasia and no receptive aphasia Motor/Sensory: no tremor Cranial Nerves: EOM intact bilaterally and normal facial strength Psychiatric: Orientation: alert, oriented x 3 and cooperative Apperance: appropriately dressed and appropriately groomed Affect: euthymic affect Thought Process: goal directed thought process Cognition: recent memory grossly intact, remote memory grossly intact, attention grossly intact and language grossly intact Results & Data Vital Signs (Past 12 Hours) Vital Signs Temp Pulse Pulse Resp BP Pulse Ox 03/30/19 07:20 36.6 C 80 20 135/82 91 03/30/19 07:19 71 03/30/19 04:35 36.7 C 72 18 109/71 90 03/29/19 23:40 71 03/29/19 23:00 36.6 C 78 18 113/64 91
--- NOTE | 2019-03-30 10:01 | Nephrology Progress Note ---
Date of Service March 30, 2019 Assessment & Plan (1) RALPH (acute kidney injury): 78 y o F with advanced CKD with atrophic kidney admitted with RALPH and bleeding from foot with dry scaly skin. Developed volume overload and pulmonary congestion with IV fluid with h/o CHF. Off of diuretics, seems volume overload with relatively stable renal function and electrolyte. UO remained low on high dose of Bumex and no [id number] in renal function. had vein mapping yesterday. --will need to get TDC and start on HD. Discussed again with pt this am about options including EMERGENCY TELECOMMUNICATIONS DISPATCHER and conservative management and what we can expect going forward. She is still not sure about EMERGENCY TELECOMMUNICATIONS DISPATCHER and waned to talk with her daughter. Discussed with Linda over telephone ). Linda will come this evening to talk with her mom again and make final decision. Will place consult for TDC for tomorrow am. If eventually she decide to go for conservative management of ESRD will DC OR for TDC. -- continue IV venofer and calcitriol --left arm nephrology precaution. Will follow (2) CKD (chronic kidney disease): -- Renal vascular disease. R kidney is atrophic/nonfunctional -- Baseline creatinine ~ 2.5 Subjective Nighat was seen and examined in her room this am. Denies any sepcific symptoms, no SOB, CP, on 4 L NC O2, gets easily SOB while talking. Appetite poor.. Decent low despite being on 2 mg Bumex IV. BP stable. No improvement in Renal function , electrolyte acceptable. Review of Systems Review of Systems: All systems reviewed & are unremarkable except as noted in HPI & below Physical Exam Constitutional: + ill appearing and + edematous; no acute distress Respiratory: Auscultation: lungs clear to auscultation bilaterally Cardiovascular: Rate/Rhythm: regular rate and regular rhythm Heart Sounds: normal S1 and normal S2 Extremities: + edema Neurologic: moves all extremities and awake; not confused Psychiatric: A+Ox3, euthymic affect Results & Data Vital Signs (Past 12 Hours) Vital Signs Temp Pulse Pulse Resp BP Pulse Ox 03/30/19 07:20 36.6 C 80 20 135/82 91 03/30/19 07:19 71 03/30/19 04:35 36.7 C 72 18 109/71 90 03/29/19 23:40 71 03/29/19 23:00 36.6 C 78 18 113/64 91 PG Care Time/CCT Total # of Minutes Spent Total Time Spent with Patient: Total time spent is greater than 50% in coordination of care (as documented) at patient's floor/unit and/or counseling patient: (1) CKD (chronic kidney disease) Chronic kidney disease stage: unspecified stage Qualified Code(s): N18.9 - Chronic kidney disease, unspecified
--- NOTE | 2019-03-30 20:17 | Hospitalist Progress Note ---
Date of Service March 30, 2019 Assessment & Plan (1) Acute on chronic systolic heart failure: in setting of CKD 5 and RALPH - ongoing. no improvement in her volume overloaded state despite attempts at diuresis with IV diuretics. nephrology assistance appreciated. cont beta letty. patient is willing to initiate HD - dialysis catheter to be placed tomorrow by Dr Walker and HD can start thereafter. volume status will improve once HD starts. (2) RALPH (acute kidney injury): ongoing see below CKD (3) CKD (chronic kidney disease): Chronic kidney disease stage V. baseline Cr 2.5 to 3. On basis of renal vascular disease per nephrology records. Chronic, significant proteinuria seen on serial u/a's over the years. Now with superimposed RALPH with volume overload state. Appreciate nephrology assistance. No significant response to escalating doses of IV bumex. Permcath to be placed in am by Dr Walker with HD following catheter placement. (4) Tinea pedis: Terbinafine cream BID Fungal cultures taken 03/24 positive for hyphae on GENARO, follow-up as outpatient. Continue local care with dressings, etc (5) Atrial fibrillation with RVR: Rates acceptable. Cont BB. eliquis BID to be held for her procedure. (6) Diabetes mellitus with neuropathy: no hemoglobin a1c over 6% last 2-3 years. previous FSBS's were all <125. does not appear she is a diabetic. (7) Hypertension: Continue amlodipine/hydralazine/coreg. Controlled. (8) Hypothyroidism: Labile TSHs of late. Prior TSH was depressed, now TSH this admission is elevated. Uncertain cause - suspect noncompliance with meds. Would simply leave dose as is and repeat the TSH in 3-4 weeks. (9) Hyponatremia: multi-factorial. h/o SIADH. CKD contributing. diuretics contributing. BMP am. (10) Alcohol abuse: daughter reports regular, chronic alcohol abuse over long period of time. will ip counsel patient on importance of abstinence. no signs/symptoms of etoh withdrawal. (11) DVT prophylaxis: Eliquis 2.5 mg twice daily but hold for permcath placement PT, OT daughter extensively updated by phone 03/29 Subjective pt w/o any new complaints. feet feel better especially when she is ambulating. she IS willing to start dialysis stating "what other choice do I have?" Review of Systems Respiratory: + dyspnea on exertion; no cough Cardiovascular: no chest pain, no dyspnea at rest and no paroxysmal nocturnal dyspnea Gastrointestinal: no abdominal pain Physical Exam Constitutional: no acute distress and no altered mental status ENMT: external ear and nose normal, oropharynx normal Mouth: + lip abnormality (upper lip with venous malformation vs hemangioma) Respiratory: no respiratory distress Auscultation: + rales (scattered) and + wheezes Cardiovascular: Rate/Rhythm: regular rate and + irregularly irregular Heart Sounds: normal S1, normal S2 and + murmur (2/6 LSB (systolic)) Vessels: + JVD, posterior tibial pulses present and dorsalis pedis pulses present Extremities: no edema Gastrointestinal (Abdomen): normal bowel sounds, soft, nontender, no hepatosplenomegaly Psychiatric: A+Ox3, euthymic affect Results & Data Vital Signs (Past 12 Hours) Vital Signs Temp Pulse Resp BP Pulse Ox 03/30/19 19:20 36.6 C 62 18 120/62 95 03/30/19 15:23 36.6 C 74 20 125/71 92 03/30/19 11:23 36.2 C L 68 18 136/78 95 Laboratory Results Laboratory Results - last 24 hr 03/30/19 06:52 Sodium 130 L Potassium 4.2 Chloride 99 Carbon Dioxide 21 Anion Gap 10.0 BUN 46 H Creatinine 3.43 H Est Cr Clr Drug Dosing 13.2 Est GFR ( Amer) 14.2 Est GFR (Non-Af Amer) 12.2 BUN/Creatinine Ratio 13.4 Glucose 77 Calcium 8.4 L Phosphorus 4.1 Albumin 3.2 L PG Care Time/CCT Total # of Minutes Spent Total Time Spent with Patient: Total time spent is greater than 50% in coordination of care (as documented) at patient's floor/unit and/or counseling patient: (1) Tinea pedis Laterality: bilateral Qualified Code(s): B35.3 - Tinea pedis (2) Hypothyroidism Hypothyroidism type: acquired Qualified Code(s): E03.9 - Hypothyroidism, unspecified (3) CKD (chronic kidney disease) Chronic kidney disease stage: unspecified stage Qualified Code(s): N18.9 - Chronic kidney disease, unspecified (4) Diabetes mellitus with neuropathy Diabetes mellitus intermediate project manager insulin use: without intermediate project manager use Diabetes mellitus type: type 2 Qualified Code(s): E11.40 - Type 2 diabetes mellitus with diabetic neuropathy, unspecified (5) Hypertension Hypertension type: unspecified Qualified Code(s): I10 - Essential (primary) hypertension
[2019-03-31] MEDS ORDERED: CEFAZOLIN 1000MG 1,000 MG/7.5 ML SYR IV SCH (06:00)
[2019-03-31] MEDS: LEVOTHYROXINE SODIUM 150 MCG TABLET PO SCH (06:37)
[2019-03-31] MEDS ORDERED: SODIUM CHLORIDE 0.9% 1000ML 1,000 ML IV PRN (07:00)
[2019-03-31] MEDS: FLUTICASONE/SALMETEROL 250/50 (ADVAIR) 14 PUFF/1 INHALER INH SCH ×2 (07:56→22:07)
[2019-03-31] MEDS: carvediloL 6.25 MG TAB PO SCH ×2 (07:57→22:08)
[2019-03-31] MEDS: VENLAFAXINE HCL XR 75 MG CAPXR PO SCH (07:57)
[2019-03-31] MEDS: AMLODIPINE BESYLATE 5 MG TAB PO SCH (07:57)
[2019-03-31] MEDS: FOLIC ACID 1 MG TAB PO SCH (07:57)
[2019-03-31] MEDS: BUMETANIDE 2 MG in SYRINGE 0 ML IV SCH (07:57)
[2019-03-31] MEDS: IRON SUCROSE 200 MG in 0.9 % SODIUM CHLORIDE 100 ML IV SCH (07:58)
[2019-03-31 07:59] LABS: Albumin Level 3.2 gm/dl (3.4-5.0); Calcium 8.5 mg/dl (8.5-10.1); Creatinine Clr Calc Pharmacy 13.4 ml/min; Est GFR (African American) 14.4; Est GFR (Non-African American) 12.5
[2019-03-31 08:00] LABS: Phosphorus 4.1 mg/dl (2.5-4.9)
[2019-03-31 08:04] LABS: Hepatitis B Surface Ab Quant < 3.10 mIU/mL (>or=10mIU/mL Immune); Hepatitis B Surface Antibody Non-Immune
[2019-03-31 08:15] LABS: Hepatitis B Surface Antigen Neg (Neg)
[2019-03-31] MEDS ORDERED: DEXTROSE 5% 1,000 ML IV SCH (08:45)
--- NOTE | 2019-03-31 09:43 | Nephrology Progress Note ---
Date of Service March 31, 2019 Assessment & Plan (1) RALPH (acute kidney injury): 78 y o F with advanced CKD with atrophic kidney admitted with RALPH and bleeding from foot with dry scaly skin. Developed volume overload and pulmonary congestion with IV fluid with h/o CHF. Off of diuretics, seems volume overload with relatively stable renal function and electrolyte. UO remained low on high dose of Bumex and no improvement in renal function. 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 But again changed mind today and now does not want dialysis --as per pt wishes, will cancel TDC and plan for HD.Informed her daughter Linda over telephone ). --will increase bumex to 3 mg BID -- continue IV venofer and calcitriol --consult palliative care for possible home hospice Will follow (2) CKD (chronic kidney disease): -- Renal vascular disease. R kidney is atrophic/nonfunctional -- Baseline creatinine ~ 2.5 Alan Disla was seen and examined in her room this am. She was awake alert and oriented. Renal function , electrolyte acceptable. Net positive more than 1 L with low urine output on Bumex 2 mg twice a day. Plan to have TDC and dialysis today but she said she is still confused and some thing tells her that she does not want dialysis. Physical Exam Constitutional: + ill appearing and + edematous; no acute distress Respiratory: Auscultation: lungs clear to auscultation bilaterally Cardiovascular: Rate/Rhythm: regular rate and regular rhythm Heart Sounds: normal S1 and normal S2 Extremities: + edema Neurologic: moves all extremities and awake; not confused Psychiatric: A+Ox3, euthymic affect Results & Data Vital Signs (Past 12 Hours) Vital Signs Temp Pulse Pulse Pulse Resp BP BP 03/31/19 07:08 36.4 C L 76 19 125/71 03/31/19 04:26 36.7 C 82 20 126/64 03/31/19 03:13 36.8 C 95 H 18 125/73 03/31/19 00:00 36.7 C 71 74 19 145/76 H 03/30/19 22:01 90 132/69 Pulse Ox 03/31/19 07:08 92 03/31/19 04:26 91 03/31/19 03:13 93 03/31/19 00:00 94 03/30/19 22:01 PG Care Time/CCT Total # of Minutes Spent Total Time Spent with Patient: Total time spent is greater than 50% in coordination of care (as documented) at patient's floor/unit and/or counseling patient: (1) CKD (chronic kidney disease) Chronic kidney disease stage: unspecified stage Qualified Code(s): N18.9 - Chronic kidney disease, unspecified
--- NOTE | 2019-03-31 10:24 | History & Physical Bridge Note ---
Date of Service March 31, 2019 Patient for permcath insertion today. I have discussed the risks options and benefits of the procedure with the patient. The patient understands the risks options and benefits and agrees to the procedure. History & Physical Bridge Note I have examined the patient, reviewed the History & Physical and in the interval since the performance of the History & Physical I have noted the following changes of clinical significance: no changes noted
--- NOTE | 2019-03-31 11:00 | Communication Note ---
Date of Service: March 31, 2019 Notified by RN that pt is refusing to start HD, so permcath insertion cancelled for today. Please call if needed.
[2019-03-31] MEDS: EUCERIN CR 120 GM JAR EXT SCH ×2 (13:04→22:09)
[2019-03-31] MEDS: ASPIRIN 81 MG ECTAB PO SCH (13:04)
[2019-03-31] MEDS: TERBINAFINE CR 30 GM TUBE EXT SCH ×2 (13:05→22:10)
--- NOTE | 2019-03-31 14:31 | Palliative Care Consultation ---
Date of Consultation March 31, 2019 Assessment & Plan (1) Goals of care, counseling/discussion: -78 year old female patient with PMH CKD stage IV, htn, DM, psoriasis, hypothyroidism, anemia, obesity, atrial fibrillation, cardiomyopathy with severely reduced systolic function with EF 25-30%, and others, presented to the hospital nine days ago with dry bleeding heels, but was found to have elevated creatinine of 3.1 (baseline per documentation 2.5). Patient has had CKD for several years, has not followed up with nephrology for about a year until recently. History of some noncompliance/nonadherence to treatment plan. Admitted for gentle IV hydration and supportive care, nephro consulted. Unfortunately creatinine has not improved and fluid overload is an issue. Nephro talked to patient about possibly needing to start dialysis and plan was for patient to have perm cath today. However, today patient indicated that she would not want dialysis. Palliative care is consulted to discuss goals of care. -Met with patient in room 255. She is awake, alert and oriented to person, place and time. However, it is clear that patient does have some difficulty understanding complex her medical condition/health status/medical decision making. -Patient agreed that she did not want dialysis as it would greatly affect her quality of life. But then stated, "I just need to go home and think about it more." Then in another sentence would say that she did not want to come back to the hospital, would be okay with allowing nature to take its course until she eventually . We discussed hospice care at home, patient would be amenable, but again I question if she fully understands. -Patient states she has a POLST form at home that a home health nurse gave to her, will ask her daughter to find this. -Patient has four children, two daughters Linda Kiah and Radha. Sons are around, but not quite as involved in patient's decision making. Patient gave permission to call Linda Dupont. -Spoke with Linda Dupont on the phone at length. She was tearful throughout conversation. Linda wishes patient would at least give dialysis a try, but also will be supportive of her mothers wishes/decisions. -Plan is for PT/OT to see patient again and assess for need for rehab. They are hoping to get patient to SNF for rehab and use that time to determine whether she can go home or not. Will also continue conversations about goals of care and refer to hospice when appropriate. -Linda will look for patient's POLSt form and bring to hospital. Linda does not plan on coming today, might come tomorrow. -Discussed CODE STATUS with patient. Despite saying she doesn't want dialysis and would be okay with hospice, said she wanted to remain FULL CODE. Will discuss further when family is available at bedside. (2) End stage chronic kidney disease: (3) Acute on chronic systolic heart failure: Supervising Physician Co-Signing Physician Notes Chart reviewed, patient seen and examined. Collaborated with GALO Saenz PE: Patient awake, alert, mild memory loss HEENT: EOMI, mild [place] Respirations: Unlabored CV: Irregular, no edema Abdomen: Soft, nontender Neuro: Alert and oriented-we will need family input for medical decision making Agree with above note, assessment and plan as per GALO Saenz. Will continue to follow and assist family with medical decision making History of Present Illness Attending Physician: Rober Roberson History of Present Illness This 78 year old female patient with PMH CKD stage IV, htn, DM, psoriasis, hypothyroidism, anemia, obesity, atrial fibrillation, cardiomyopathy with severely reduced systolic function with EF 25-30%, and others, presented to the hospital nine days ago with dry bleeding heels, but was found to have elevated creatinine of 3.1 (baseline per documentation 2.5). Patient has had CKD for several years, has not followed up with nephrology for about a year until recently. History of some noncompliance/nonadherence to treatment plan. Admitted for gentle IV hydration and supportive care, nephro consulted. Unfortunately creatinine has not improved and fluid overload is an issue. Nephro talked to patient about possibly needing to start dialysis and plan was for patient to have perm cath today. However, today patient indicated that she would not want dialysis. Palliative care is consulted to discuss goals of care. Thank you kindly for this consult. Palliative care team will follow as needed. Allergies Allergy/AdvReac Type Severity Reaction Status Date / Time doxycycline Allergy Unknown Unknown Unverified 03/03/19 13:26 labetalol Allergy Unknown Unknown Unverified 03/03/19 13:26 lorazepam Allergy Unknown Unknown Unverified 03/03/19 13:26 Pork/Porcine Containing Allergy Unknown unknown Unverified 08/29/19 13:26 Products tetracycline Allergy Unknown unknown(not Unverified 03/03/19 13:26 100% sure if she's allergic to it) tramadol AdvReac Unknown dizzy, Verified 03/03/19 13:26 emesis Home Medications Home Medications Medication Instructions Recorded Confirmed Type mupirocin 2 % topical ointment 1 appln TOP BID #15 gm 01/26/19 03/21/19 Rx fluticasone 250 mcg-salmeterol 50 1 puffs INH Q12H #60 ea 01/28/19 03/21/19 Rx mcg/dose blistr powdr for inhalation hydralazine 25 mg tablet 25 mg PO TID #90 tab 01/28/19 03/21/19 Rx ranitidine 150 mg capsule 150 mg PO BID #60 cap 01/28/19 03/21/19 Rx amlodipine 10 mg PO QAM 02/13/19 03/21/19 History aspirin 81 mg PO QAM 02/13/19 03/21/19 History cholecalciferol (vitamin D3) 400 units PO QAM 02/13/19 03/21/19 History folic acid 1 mg PO QAM 02/13/19 03/21/19 History furosemide 40 mg PO QAM 02/13/19 03/21/19 History levothyroxine 150 mcg PO QAM 02/13/19 03/21/19 History venlafaxine 75 mg PO QAM 02/13/19 03/21/19 History vitamin B complex [B 1 tab PO QAM 02/13/19 03/21/19 History Complex-Vitamin B12] sodium bicarbonate 650 mg PO BID #60 tab 02/14/19 03/21/19 Rx metoprolol tartrate 25 mg PO BID 03/21/19 03/21/19 History Patient History Medical History Psoriasis Diabetes mellitus with neuropathy (Chronic) Hypertension (Chronic) Hypothyroidism (Chronic) Proteinuria Anemia Anemia associated with chronic renal failure Acute kidney injury superimposed on chronic kidney disease Chronic kidney disease (CKD) stage G4/A2, severely decreased glomerular filtration rate (GFR) between 15-29 mL/min/1.73 square meter and albuminuria creatinine ratio between 30-299 mg/g Dehydration Gastroenteritis Hypertension (Acute) SIADH (syndrome of inappropriate ADH production) Social History Preferred Language: Vietnamese Communication Ability: Effective Threading Machine Feeder Automatic Required: No Beliefs That Will Affect Care: None marital status: Single Current Living Situation: Alone Feels Safe at Home: Yes Smoking Status: Never smoker Hx Alcohol Use: No Hx Substance Use: No Review of Systems Constitutional: + weakness Ear, Nose, Mouth, Throat: no dysphagia Respiratory: no cough and no dyspnea Cardiovascular: + edema Gastrointestinal: no abdominal pain and no nausea Musculoskeletal: no pain Psychiatric: no anxiety Physical Exam Constitutional: + obese; no acute distress Eyes: PERRL ENMT: Ears: + hearing impairment Respiratory: normal respiratory effort, lungs clear to auscultation Auscultation: + diminished lung sounds Cardiovascular: Rate/Rhythm: + irregularly irregular Extremities: + edema Gastrointestinal (Abdomen): Inspection/Auscultation: abdomen normal to inspection and normal bowel sounds; abdomen not distended Percussion/Palpation: abdomen soft Neurologic: moves all extremities and awake Psychiatric: Orientation: alert and oriented x 3 (some forgetfulness) Insight: + limited insight Results & Data Vital Signs (Past 12 Hours) Vital Signs Temp Pulse Resp BP Pulse Ox 03/31/19 13:06 62 121/84 92 03/31/19 11:11 36.7 C 54 L 20 98/56 L 92 03/31/19 07:08 36.4 C L 76 19 125/71 92 03/31/19 04:26 36.7 C 82 20 126/64 91 03/31/19 03:13 36.8 C 95 H 18 125/73 93 Time Spent Midlevel 70 minutes with >50% of the time spent at bedside with patient and on phone with family discussing condition and GOC.
[2019-03-31] MEDS: BUMETANIDE 1 MG TAB PO SCH (16:16)
--- NOTE | 2019-03-31 20:17 | Hospitalist Progress Note ---
Date of Service March 31, 2019 Assessment & Plan (1) Acute on chronic systolic heart failure: in setting of CKD 5 and RALPH - ongoing. no improvement in her volume overloaded state despite attempts at diuresis with IV diuretics over the last 5+ days. nephrology assistance appreciated. cont beta letty. patient has changed her mind SEVERAL TIMES in the last 48 hours regarding her desire for dialysis. she seemed ready to simply return home with hospice after discussions with nephrology and palliative care earlier today. however, by night-fall (according to daughter) patient changed her mind AGAIN about dialysis. she apparently does now want to pursue it. Will meet with patient and Dr Parikh first thing in am to confirm patient's desires/wishes on this significant issue. (2) RALPH (acute kidney injury): ongoing see below CKD (3) CKD (chronic kidney disease): Chronic kidney disease stage V. baseline Cr 2.5 to 3. On basis of renal vascular disease per nephrology records. Chronic, significant proteinuria seen on serial u/a's over the years. Now with superimposed RALPH with volume overload state. Appreciate nephrology assistance. No significant response to escalating doses of IV bumex. Bumex again increased today by Dr Parikh. Permcath placement by Dr Walker canceled after patient this AM declined HD. will need to revisit the whole issue again in am. (4) Tinea pedis: Terbinafine cream BID Fungal cultures taken 03/24 positive for hyphae on GENARO, follow-up as outpatient. Continue local care with dressings, etc (5) Atrial fibrillation with RVR: Rates acceptable. Cont BB. eliquis BID to be held for her procedure. (6) Diabetes mellitus with neuropathy: no hemoglobin a1c over 6% last 2-3 years. previous FSBS's were all <125. does not appear she is a diabetic. (7) Hypertension: Continue amlodipine/hydralazine/coreg. Controlled. (8) Hypothyroidism: Labile TSHs of late. Prior TSH was depressed, now TSH this admission is elevated. Uncertain cause - suspect noncompliance with meds. Would simply leave dose as is and repeat the TSH in 3-4 weeks. (9) Hyponatremia: multi-factorial. h/o SIADH. CKD contributing. diuretics contributing. overall acceptable/stable. BMP am. (10) Alcohol abuse: daughter reports regular, chronic alcohol abuse over long period of time. counseled patient on importance of abstinence in setting of ESRD and potential for HD. no signs/symptoms of etoh withdrawal. (11) DVT prophylaxis: Eliquis 2.5 mg twice daily but hold for now PT, OT stated today she is NOT safe for home unless she has 26/01 supervision daughter extensively updated by phone 03/29 and 03/31 Subjective patient decided, after much discussion with Dr Parikh, that she did NOT want HD. palliative care was then consulted. I saw the patient mid-day -- she was still wanting NO dialysis and said "I just want to go home." I then spoke with pt's daughter later in the evening (730pm) and daughter stated patient changed her mind and now DOES WANT dialysis. Review of Systems Constitutional: no fever and no anorexia Respiratory: no cough and no dyspnea Cardiovascular: no chest pain, no orthopnea and no edema Gastrointestinal: no abdominal pain Physical Exam Constitutional: + altered mental status (mild confusion; sometimes repeats certain questions); no acute distress ENMT: external ear and nose normal, oropharynx normal Mouth: + lip abnormality (upper lip with venous malformation vs hemangioma) Respiratory: no respiratory distress Auscultation: + rales (scattered) and + wheezes Cardiovascular: Rate/Rhythm: regular rate and + irregularly irregular Heart Sounds: normal S1, normal S2 and + murmur (2/6 LSB (systolic)) Vessels: + JVD, posterior tibial pulses present and dorsalis pedis pulses present Extremities: no edema Gastrointestinal (Abdomen): normal bowel sounds, soft, nontender, no hepatosplenomegaly Psychiatric: Orientation: alert Affect: + anxious affect Results & Data Vital Signs (Past 12 Hours) Vital Signs Temp Pulse Pulse Resp BP Pulse Ox 03/31/19 20:16 71 03/31/19 19:25 36.2 C L 78 19 119/66 94 03/31/19 15:27 36.4 C L 75 18 117/69 94 03/31/19 13:06 62 121/84 92 03/31/19 11:11 36.7 C 54 L 20 98/56 L 92 Laboratory Results Laboratory Results - last 24 hr 03/31/19 03/31/19 03/31/19 07:05 07:05 07:05 Sodium 130 L Potassium 4.0 Chloride 99 Carbon Dioxide 22 Anion Gap 9.0 BUN 44 H Creatinine 3.38 H Est Cr Clr Drug Dosing 13.4 Est GFR ( Amer) 14.4 Est GFR (Non-Af Amer) 12.5 BUN/Creatinine Ratio 13.0 Glucose 64 L POC Glucose Calcium 8.5 Phosphorus 4.1 Albumin 3.2 L Hep Bs Antigen Neg Hep Bs Antibody Non-Immune Hep Bs Antibody, Quant < 3.10 L Hep B Core IgM Ab Pending 03/31/19 03/31/19 09:07 13:19 Sodium Potassium Chloride Carbon Dioxide Anion Gap BUN Creatinine Est Cr Clr Drug Dosing Est GFR ( Amer) Est GFR (Non-Af Amer) BUN/Creatinine Ratio Glucose POC Glucose 75 101 H Calcium Phosphorus Albumin Hep Bs Antigen Hep Bs Antibody Hep Bs Antibody, Quant Hep B Core IgM Ab PG Care Time/CCT Total # of Minutes Spent Total Time Spent with Patient: Total time spent is greater than 50% in coordination of care (as documented) at patient's floor/unit and/or counseling patient: (1) Tinea pedis Laterality: bilateral Qualified Code(s): B35.3 - Tinea pedis (2) Hypothyroidism Hypothyroidism type: acquired Qualified Code(s): E03.9 - Hypothyroidism, unspecified (3) CKD (chronic kidney disease) Chronic kidney disease stage: unspecified stage Qualified Code(s): N18.9 - Chronic kidney disease, unspecified (4) Diabetes mellitus with neuropathy Diabetes mellitus predatory animal exterminator insulin use: without predatory animal exterminator use Diabetes mellitus type: type 2 Qualified Code(s): E11.40 - Type 2 diabetes mellitus with diabetic neuropathy, unspecified (5) Hypertension Hypertension type: unspecified Qualified Code(s): I10 - Essential (primary) hypertension
[2019-04-01] MEDS: LEVOTHYROXINE SODIUM 150 MCG TABLET PO SCH (05:25)
[2019-04-01] MEDS ORDERED: SODIUM CHLORIDE 0.9% 1000ML 1,000 ML IV PRN ×2 (07:00→10:02)
[2019-04-01 07:19] LABS: Hemoglobin 10.4 g/dL (12.0-16.0); Mean Corpuscular Hemoglobin 28.9 pg (25-34); Mean Corpuscular Hgb Conc 32.5 g/dL (32-36); Mean Corpuscular Volume 88.9 fL (80-100); Mean Platelet Volume 9.8 fL (7.4-10.4); Nucleated RBC # (auto) 0.02 K/uL (0-0); Nucleated RBC % (auto) 0.3 %; Platelet Count 204 K/uL (130-400); RDW Coefficient of Variation 16.5 % (11.5-14.5); RDW Standard Deviation 53.6 fL (36.4-46.3); White Blood Count 6.26 K/uL (4.8-10.8)
[2019-04-01 07:48] LABS: BUN Creatinine Ratio 12.9 (10-20); Calcium 8.4 mg/dl (8.5-10.1); Creatinine Clr Calc Pharmacy 13.9 ml/min; Est GFR (African American) 15.1; Est GFR (Non-African American) 13.1; Phosphorus 3.9 mg/dl (2.5-4.9); Potassium 3.9 mmol/L (3.5-5.1)
[2019-04-01] MEDS: FLUTICASONE/SALMETEROL 250/50 (ADVAIR) 14 PUFF/1 INHALER INH SCH ×2 (08:30→20:21)
[2019-04-01] MEDS: AMLODIPINE BESYLATE 5 MG TAB PO SCH (08:31)
[2019-04-01] MEDS: VENLAFAXINE HCL XR 75 MG CAPXR PO SCH (08:32)
[2019-04-01] MEDS: BUMETANIDE 1 MG TAB PO SCH ×2 (08:33→18:22)
[2019-04-01] MEDS: ASPIRIN 81 MG ECTAB PO SCH (08:33)
[2019-04-01] MEDS: EUCERIN CR 120 GM JAR EXT SCH ×2 (08:33→20:26)
[2019-04-01] MEDS: FOLIC ACID 1 MG TAB PO SCH (08:33)
[2019-04-01] MEDS: carvediloL 6.25 MG TAB PO SCH ×2 (08:33→20:24)
[2019-04-01] MEDS: TERBINAFINE CR 30 GM TUBE EXT SCH ×2 (08:34→20:26)
--- NOTE | 2019-04-01 09:29 | History & Physical Bridge Note ---
Date of Service April 01, 2019 History & Physical Bridge Note Patient for an insertion of a permcath. I have discussed the risks options and benefits of the procedure with the patient. The patient understands the risks options and benefits and agrees to the procedure. I have examined the patient, reviewed the History & Physical and in the interval since the performance of the History & Physical I have noted the following changes of clinical significance: no changes noted
[2019-04-01] MEDS: IRON SUCROSE 200 MG in 0.9 % SODIUM CHLORIDE 100 ML IV SCH (09:39)
[2019-04-01] MEDS: CALCITRIOL 0.25 MCG CAPSULE PO SCH (09:58)
--- NOTE | 2019-04-01 09:59 | Nephrology Progress Note ---
Date of Service April 01, 2019 Assessment & Plan (1) RALPH (acute kidney injury): 78 y o F with advanced CKD with atrophic kidney admitted with RALPH and bleeding from foot with dry scaly skin. Developed volume overload and pulmonary congestion with IV fluid with h/o CHF. Off of diuretics, seems volume overload with relatively stable renal function and electrolyte. UO remained low on high dose of Bumex. had long discussion with pt and daughters repeatedly over last 1 week and she again changed mind today and now wants to do dialysis --will have TDC and plan for HD later today --continue bumex to 3 mg BID -- continue IV venofer and calcitriol --consult social service for out pt dialysis Will follow (2) CKD (chronic kidney disease): -- Renal vascular disease. R kidney is atrophic/nonfunctional -- Baseline creatinine ~ 2.5 Alan Disla was seen and examined in her room this am. She was awake alert and oriented. Renal function , electrolyte acceptable. Net positive more than 1 L with low urine output on Bumex 3 mg twice a day. 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 Review of Systems Review of Systems: All systems reviewed & are unremarkable except as noted in HPI & below Physical Exam Constitutional: + ill appearing and + edematous; no acute distress Respiratory: Auscultation: lungs clear to auscultation bilaterally Cardiovascular: Rate/Rhythm: regular rate and regular rhythm Heart Sounds: normal S1 and normal S2 Extremities: + edema Neurologic: moves all extremities and awake; not confused Psychiatric: A+Ox3, euthymic affect Results & Data Vital Signs (Past 12 Hours) Vital Signs Temp Pulse Pulse Resp BP Pulse Ox 04/01/19 07:30 36.7 C 77 20 133/56 L 93 04/01/19 07:24 79 04/01/19 04:32 36.5 C 70 18 120/68 93 03/31/19 22:20 36.5 C 78 20 131/83 90 PG Care Time/CCT Total # of Minutes Spent Total Time Spent with Patient: Total time spent is greater than 50% in coordination of care (as documented) at patient's floor/unit and/or counseling patient: (1) CKD (chronic kidney disease) Chronic kidney disease stage: unspecified stage Qualified Code(s): N18.9 - Chronic kidney disease, unspecified
--- NOTE | 2019-04-01 10:22 | Communication Note ---
Date of Service: April 01, 2019 Pt had previously refused TDC yesterday, but now states is willing to proceed with HD. Planning on TDC insertion later this afternoon. Pt agreeable and fully oriented.
[2019-04-01] MEDS ORDERED: LIDOCAINE HCL 1% 20 ML VIAL ONE (13:35)
--- NOTE | 2019-04-01 14:06 | Palliative Care Progress Note ---
Date of Service April 01, 2019 Assessment & Plan (1) Goals of care, counseling/discussion: -78 year old female patient with [facility] CKD stage IV, htn, DM, psoriasis, hypothyroidism, anemia, obesity, atrial fibrillation, cardiomyopathy with severely reduced systolic function with EF 25-30%, and others, presented to the hospital nine days ago with dry bleeding heels, but was found to have elevated creatinine of 3.1 (baseline per documentation 2.5). Patient has had CKD for several years, has not followed up with nephrology for about a year until recently. History of some noncompliance/nonadherence to treatment plan. Admitted for gentle IV hydration and supportive care, nephro consulted. Unfortunately creatinine has not improved and fluid overload is an issue. Nephro talked to patient about possibly needing to start dialysis and plan is for patient to have perm cath today. Patient has changed her mind several times regarding warning dialysis-stated she did want yesterday evening and has repeated that statement today so far. -Met with patient in room 255. She is awake, alert and oriented to person, place and time. However, it is clear that patient does have some difficulty understanding the complexity of her medical condition/health status-daughter supports her decision to start dialysis -Patient states she has a POLST form at home that a home health nurse gave to her. -Patient has four children, two daughters Linda Dupont and Radha. Sons are around, but not quite as involved in patient's decision making. -Daughter supports patient's decision to go ahead with dialysis -Linda will look for patient's POLSt form and bring to hospital. -Discussed CODE STATUS with patient. Despite saying she doesn't want dialysis and would be okay with hospice, said she wanted to remain FULL CODE. Will discuss further when family is available at bedside. Will continue to follow and assist patient and family with medical decision making (2) End stage chronic kidney disease: (3) Acute on chronic systolic heart failure: Subjective Patient awake and alert, no acute distress. Patient reiterated on exam today that she wishes to give dialysis a try. Patient is planned for catheter placement this afternoon Review of Systems Review of Systems: Patient denies fever, chills, chest pain, increased shortness of breath, or abdominal pain Physical Exam Physical Exam: PE: Awake alert, no acute distress HEENT: EOMI, hearing within normal limits Respiratory: No increased work of breathing, on O2 at 2 L CV: Irregular rhythm, rate controlled Abdomen: Soft nontender Extremities: Upper extremity edema, lower extremities with dependent edema only Neuro: Alert and oriented Results & Data Vital Signs (Past 12 Hours) Vital Signs Temp Pulse Pulse Resp BP BP Pulse Ox 04/01/19 11:34 97.5 F L 80 18 106/67 96 04/01/19 07:30 98.1 F 77 20 133/56 L 93 04/01/19 07:24 79 04/01/19 04:32 97.7 F 70 18 120/68 93 PG Care Time/CCT Total # of Minutes Spent Total Time Spent with Patient: Total time spent is greater than 50% in coordination of care (as documented) at patient's floor/unit and/or counseling patient: Time Spent Attending Total time spent 25 minutes with greater than 50% of the time spent at bedside discussing patient's current status as well as confirming patient's goals of care for dialysis
[2019-04-01] MEDS ORDERED: MIDAZOLAM HCL 1 MG/ML 2ML VIAL ONE (14:12)
[2019-04-01] MEDS ORDERED: fentaNYL citrate 100 MCG/2 ML VIAL ONE (14:12)
--- NOTE | 2019-04-01 14:31 | Operative Report ---
Post Operative Report Pre & Post Diagnosis Operation Date: 04/01/19 14:00 Pre-Op Diagnosis: acute kidney injury Post-Op Diagnosis: acute kidney injury Procedure Operation Date: 04/01/19 14:00 Actual Procedures p Insertion Of Perm Catheter, Right Internal Jugular Approach, Ultrasound Localization Of Right Internal Jugular Vein, Fluoroscopy For Positioning, Moderate Concious Sedation 1415 to 1430(Right) - Yoel Walker MD Surgeon Yoel Walker MD Leather Piece Inspector None Estimated Blood Loss 3 Findings Consistent with Post-Op Diagnosis Specimens None Anesthesia Type RN Sedation Complications none Disposition Accompanied Patient To Recovery: No Disposition: Recovery Room Indications This is a 78-year-old female with acute kidney injury in need of dialysis. PermCath was recommended. I have discussed the risks options and benefits of the procedure with the patient. The patient understands the risks options and benefits and agrees to the procedure. Description of Procedure Patient was taken to the angio suite and placed in the supine position. The right side of the neck and chest wall were prepped and draped in a sterile manner. The patient was identified and a timeout performed. Local anesthesia was then administered to the appropriate areas of the neck and chest wall. Ultrasound was then used to locate the right internal jugular vein. The vein compressed easily, had no filing defects, and was patent. The vein was then punctured under direct ultrasound imaging. A guidewire was then passed centrally under fluoroscopic imaging. A stab wound was then made in the anterior chest wall and a 19 cm permcath was passed from the stab wound on the chest wall to the puncture site on the neck. The puncture site was then dilated till the 14Fr peel away sheath was inserted. The permcath was then inserted through the sheath to a central position in the distal superior vena cava. The peel away sheath was then removed. The catheter was then sutured in place using nylon sutures. The puncture was then closed using a 4-0 Vicryl subcuticular suture. Dermabond was used for a dressing on the puncture site. Both ports aspirated and flushed easily and were then packed with heparin. A sterile dressing was applied to the catheter. The patient left the operation room in satisfactory condition and tolerated the procedure well. All needle and sponge counts were correct at the end of the procedure. I attest to the content of the Intraoperative Record and any orders documented therein. Any exceptions are noted below.
--- NOTE | 2019-04-01 14:32 | Pre Anesthesia Assessment ---
Date of Service April 01, 2019 Pre Sedation Assessment Vital Signs Temp Pulse Pulse Resp BP BP Pulse Ox 04/01/19 14:15 84 12 141/75 H 99 04/01/19 14:12 82 12 138/74 99 04/01/19 11:34 36.4 C L 80 18 106/67 96 04/01/19 07:30 36.7 C 77 20 133/56 L 93 04/01/19 07:24 79 04/01/19 04:32 36.5 C 70 18 120/68 93 03/31/19 22:20 36.5 C 78 20 131/83 90 03/31/19 20:16 71 03/31/19 19:25 36.2 C L 78 19 119/66 94 03/31/19 15:27 36.4 C L 75 18 117/69 94 Cardiovascular RRR, no murmur, no edema Respiratory normal respiratory effort, lungs clear to auscultation Pre-Sedation Airway Assessment Smoking Status: Never smoker Hx Sleep Apnea: No Short, Thick Neck: No Thyromental Distance: > or= 3.5 Finger Breadths Oral Cavity: + WNL Mallampati Class: II ASA: ASA3E NPO Status Date of Last Intake of Fluids: 04/01/19 Time of Last Intake of Fluids: 08:00 Date of Last Intake of Solid Food: 04/01/19 Time of Last Intake of Solid Foods: 08:00 Procedure Planning Contraindications for Sedation: none Current Medications Reviewed: Yes Notes The planned sedation has been discussed with the patient. Informed Consent was obtained. I have identified the patient, determined the appropriateness of sedation and have assessed the patient immediately prior to the procedure. All medicine(s) and interventions are by my order.
--- NOTE | 2019-04-01 14:40 | Post Anesthesia Assessment ---
Date of Service April 01, 2019 Post Sedation Assessment Vital Signs Temp Pulse Pulse Resp BP BP Pulse Ox 04/01/19 14:30 69 15 141/75 H 95 04/01/19 14:25 67 14 127/76 95 04/01/19 14:20 84 12 138/72 97 04/01/19 14:15 84 12 141/75 H 99 04/01/19 14:12 82 12 138/74 99 04/01/19 11:34 36.4 C L 80 18 106/67 96 04/01/19 07:30 36.7 C 77 20 133/56 L 93 04/01/19 07:24 79 04/01/19 04:32 36.5 C 70 18 120/68 93 03/31/19 22:20 36.5 C 78 20 131/83 90 03/31/19 20:16 71 03/31/19 19:25 36.2 C L 78 19 119/66 94 03/31/19 15:27 36.4 C L 75 18 117/69 94 Recovery Score Activity: Moves 4 extremities Respiration: Deep Breath/Cough Circulation: +/-20% PreAnes Value Consciousness: Arouseable (by name) Oxygen Saturation: O2 needed for >90% Post Anesthesia Score: 8 Post Sedation Plan On clinical assessment, the patient appears to have tolerated the sedation without complications. Patient is recovering as anticipated. Patient will continue to be monitored by nursing and may be discharged when sedation discharge criteria are met per below protocol. Upon Completions of procedure and additional 15 minutes continue every 5 minute vital signs and the P.A.R. score; then discharge to a Phase I or Fast Track to Phase II per the following guidelines: * Discharge Patient to appropriate Phase II area if PAR is 8 or greater or return to pre- procedure baseline. The post - procedure orders will be as directed. * If PAR score is less than 8 or not return to pre-procedure baseline then patient will follow Phase I monitoring till PAR is reached for Phase II. The Phase I may be done in procedure room or may call to secure a Phase I area. * If naloxone or flumazenil are used for reversal, hold in Phase I for continued monitoring from when last reversal dose was given for a minimum of 60 minutes or longer pending the nurse and/or physician discretion of patient condition before discharge to Phase II. Please call the Sedation Physician to re-evaluate and complete post-note for discharge to Phase II area. Do NOT discharge from procedure sedation or Phase 1 until post- sedation evaluation note is complete by procedure /sedation MD Sedation Discharge Instructions to be given to the patient at discharge to home.
[2019-04-01] MEDS: APIXABAN 2.5 MG TAB PO SCH (20:25)
--- NOTE | 2019-04-01 21:50 | Hospitalist Progress Note ---
Date of Service April 01, 2019 Assessment & Plan (1) CKD (chronic kidney disease): Chronic kidney disease stage V. baseline Cr 2.5 to 3. On basis of renal vascular disease per nephrology records. Chronic, significant proteinuria seen on serial u/a's over the years. Continues with superimposed RALPH with volume overload state. No significant response to escalating doses of IV bumex. Patient indeed changed her mind overnight about her desire for HD. She was asked several times this am by myself and Dr Parikh about her wishes. It appears she now wants to start dialysis. She reports she understands why she needs HD, what HD entails, etc. Dr Pereira informed of the above. Permcath placed today followed by first HD session. (2) Acute on chronic systolic heart failure: in setting of CKD 5 and RALPH - ongoing. no improvement in her volume overloaded state despite attempts at diuresis. cont beta letty. to start HD today. (3) RALPH (acute kidney injury): ongoing see CKD (4) Tinea pedis: Terbinafine cream BID Fungal cultures taken 03/24 positive for hyphae on GENARO Continue local care with dressings, etc IMPROVED feet feeling better (5) Atrial fibrillation with RVR: Rates acceptable. Cont BB. eliquis BID. (6) Diabetes mellitus with neuropathy: no hemoglobin a1c over 6% last 2-3 years. previous FSBS's were all <125. does not appear she is a diabetic. (7) Hypertension: Continue amlodipine/hydralazine/coreg. Controlled. (8) Hypothyroidism: Labile TSHs of late. Prior TSH was depressed, now TSH this admission is elevated. Uncertain cause - suspect noncompliance with meds. Would simply leave dose as is and repeat the TSH in 3-4 weeks. (9) Hyponatremia: multi-factorial. CKD contributing. diuretics contributing. overall acceptable/stable levels. starting HD today; suspect Na level will improve. BMP am. (10) Alcohol abuse: daughter reports regular, chronic alcohol abuse over long period of time. counseled patient on importance of abstinence in setting of ESRD and potential for HD multiple times this admission. no signs/symptoms of etoh withdrawal. (11) DVT prophylaxis: Eliquis 2.5 mg twice daily PT, OT stated today she is NOT safe for home unless she has 26/01 supervision daughter extensively updated by phone 03/29 and 03/[address] Parikh and I met w/ the patient early this am at bedside to discuss HD and guage her current interest in pursuing dialysis. to this date - for months/years - she had been NOT wanting to pursue HD. yesterday evening I spoke w/ pt's daughter by phone and she stated her mother had changed her mind stating she now would want dialysis. during our discussion this am patient did state she would pursue permcath placement and HD. we discussed the importance of abstaining from alcohol, commitment to the HD schedule of 3 days/week, etc. permcath was then placed by Dr pereira today followed by first HD session Review of Systems Constitutional: no fever Respiratory: + dyspnea on exertion; no cough and no dyspnea Cardiovascular: no chest pain Gastrointestinal: no abdominal pain Physical Exam Constitutional: + altered mental status (mild confusion; again sometimes repeats certain questions); no acute distress ENMT: external ear and nose normal, oropharynx normal Mouth: + lip abnormality (upper lip with venous malformation vs hemangioma) Respiratory: no respiratory distress Auscultation: + rales (scattered) and + wheezes Cardiovascular: Rate/Rhythm: regular rate and + irregularly irregular Heart Sounds: normal S1, normal S2 and + murmur (2/6 LSB (systolic)) Vessels: + JVD, posterior tibial pulses present and dorsalis pedis pulses present Extremities: no edema Gastrointestinal (Abdomen): normal bowel sounds, soft, nontender, no hepatosplenomegaly Psychiatric: Orientation: alert, oriented to person and oriented to place Affect: + irritable affect Results & Data Vital Signs (Past 12 Hours) Vital Signs Temp Pulse Pulse Pulse Resp BP BP 04/01/19 19:36 36.5 C 91 H 18 138/75 04/01/19 17:23 36.3 C L 77 77 136/46 L 04/01/19 17:00 70 131/80 04/01/19 16:40 66 151/74 H 04/01/19 16:20 63 141/69 H 04/01/19 16:00 68 141/77 H 04/01/19 15:44 68 04/01/19 15:40 64 157/67 H 04/01/19 15:17 36.6 C 60 60 131/69 04/01/19 15:07 36.3 C L 81 18 120/69 04/01/19 14:50 36.4 C L 77 16 113/72 04/01/19 14:30 69 15 141/75 H 04/01/19 14:25 67 14 127/76 04/01/19 14:20 84 12 138/72 04/01/19 14:15 84 12 141/75 H 04/01/19 14:12 82 12 138/74 04/01/19 11:34 36.4 C L 80 18 BP Pulse Ox 04/01/19 19:36 92 04/01/19 17:23 155/77 H 04/01/19 17:00 04/01/19 16:40 04/01/19 16:20 04/01/19 16:00 04/01/19 15:44 04/01/19 15:40 04/01/19 15:17 04/01/19 15:07 04/01/19 14:50 97 04/01/19 14:30 95 04/01/19 14:25 95 04/01/19 14:20 97 04/01/19 14:15 99 04/01/19 14:12 99 04/01/19 11:34 106/67 96 PG Care Time/CCT Total # of Minutes Spent Total Time Spent with Patient: Total time spent is greater than 50% in coordination of care (as documented) at patient's floor/unit and/or counseling patient: (1) Tinea pedis Laterality: bilateral Qualified Code(s): B35.3 - Tinea pedis (2) Hypothyroidism Hypothyroidism type: acquired Qualified Code(s): E03.9 - Hypothyroidism, unspecified (3) CKD (chronic kidney disease) Chronic kidney disease stage: unspecified stage Qualified Code(s): N18.9 - Chronic kidney disease, unspecified (4) Diabetes mellitus with neuropathy Diabetes mellitus nursing home insulin use: without nursing home use Diabetes mellitus type: type 2 Qualified Code(s): E11.40 - Type 2 diabetes mellitus with diabetic neuropathy, unspecified (5) Hypertension Hypertension type: unspecified Qualified Code(s): I10 - Essential (primary) hypertension
[2019-04-02] MEDS ORDERED: CEFAZOLIN 2000MG 2,000 MG/15 ML SYR IV SCH (06:00)
[2019-04-02] MEDS: LEVOTHYROXINE SODIUM 150 MCG TABLET PO SCH (06:06)
[2019-04-02] MEDS ORDERED: SODIUM CHLORIDE 0.9% 1000ML 1,000 ML IV PRN (07:00)
[2019-04-02 07:38] LABS: Albumin Level 2.9 gm/dl (3.4-5.0); BUN Creatinine Ratio 11.1 (10-20); Creatinine Clr Calc Pharmacy 19.3 ml/min; Est GFR (African American) 22.5; Est GFR (Non-African American) 19.4; Potassium 3.5 mmol/L (3.5-5.1)
--- NOTE | 2019-04-02 09:44 | Nephrology Progress Note ---
Date of Service April 02, 2019 Assessment & Plan (1) RALPH (acute kidney injury): 78 y o F with advanced CKD with atrophic kidney admitted with RALPH and bleeding from foot with dry scaly skin. Developed volume overload and pulmonary congestion with IV fluid with h/o CHF. Off of diuretics, seems volume overload with relatively stable renal function and electrolyte. Urine output remained low despite being on high dose diuretics and renal function stayed stable without any improvement. Eventually decided to start on dialysis, had 1st dialysis treatment on 04/01/2019 via right IJ tunneled dialysis catheter. --will have 2nd dialysis treatment today for 2.5 hours , the next dialysis M on --continue bumex to 3 mg BID -- continue IV venofer and calcitriol --discharge pending outpatient dialysis set up Will follow (2) CKD (chronic kidney disease): -- Renal vascular disease. R kidney is atrophic/nonfunctional -- Baseline creatinine ~ 2.5 Alan Disla was seen and examined in her room this am. She was awake alert and oriented but tea are full and repeatedly said she just wants to go home. Had 1st dialysis treatment yesterday for 2 hours after she had tunnel dialysis catheter, tolerated well. Had some bleeding from dialysis catheter area with some hematoma but no active bleeding Review of Systems Review of Systems: All systems reviewed & are unremarkable except as noted in HPI & below Physical Exam Constitutional: + ill appearing and + edematous; no acute distress Neck: Right IJ tunneled dialysis catheter, dressing soaked but no active bleed ing, has hematoma. Respiratory: Auscultation: lungs clear to auscultation bilaterally Cardiovascular: Rate/Rhythm: regular rate and regular rhythm Heart Sounds: normal S1 and normal S2 Extremities: + edema Neurologic: moves all extremities and awake; not confused Psychiatric: A+Ox3, euthymic affect Results & Data Vital Signs (Past 12 Hours) Vital Signs Temp Pulse Resp BP Pulse Ox 04/02/19 07:26 36.2 C L 106 H 22 146/72 H 90 04/02/19 03:42 36.6 C 80 20 144/75 H 93 04/01/19 23:40 36.5 C 75 20 147/79 H 93 PG Care Time/CCT Total # of Minutes Spent Total Time Spent with Patient: Total time spent is greater than 50% in coordination of care (as documented) at patient's floor/unit and/or counseling patient: (1) CKD (chronic kidney disease) Chronic kidney disease stage: unspecified stage Qualified Code(s): N18.9 - Chronic kidney disease, unspecified
[2019-04-02] MEDS: BUMETANIDE 1 MG TAB PO SCH ×2 (13:46→17:22)
[2019-04-02] MEDS: VENLAFAXINE HCL XR 75 MG CAPXR PO SCH (13:46)
[2019-04-02] MEDS: ASPIRIN 81 MG ECTAB PO SCH (13:46)
[2019-04-02] MEDS: APIXABAN 2.5 MG TAB PO SCH ×2 (13:46→20:53)
[2019-04-02] MEDS: IRON SUCROSE 200 MG in 0.9 % SODIUM CHLORIDE 100 ML IV SCH (13:47)
[2019-04-02] MEDS: FLUTICASONE/SALMETEROL 250/50 (ADVAIR) 14 PUFF/1 INHALER INH SCH ×2 (13:47→20:52)
[2019-04-02] MEDS: FOLIC ACID 1 MG TAB PO SCH (13:47)
[2019-04-02] MEDS: carvediloL 6.25 MG TAB PO SCH ×2 (13:48→20:52)
[2019-04-02] MEDS: TERBINAFINE CR 30 GM TUBE EXT SCH ×2 (13:48→20:54)
[2019-04-02] MEDS: AMLODIPINE BESYLATE 5 MG TAB PO SCH (13:48)
[2019-04-02] MEDS: EUCERIN CR 120 GM JAR EXT SCH ×2 (13:49→20:53)
--- NOTE | 2019-04-02 20:46 | Hospitalist Progress Note ---
Date of Service April 02, 2019 Assessment & Plan (1) CKD (chronic kidney disease): Chronic kidney disease stage V with baseline Cr 2.5 to 3. CrCl on 24-hour urine <5. CKD stage 5 has progressed to ESRD. On basis of renal vascular disease per nephrology records. Chronic, significant proteinuria seen on serial u/a's over the years. Following numerous discussions and debate by the patient she opted to initiate HD yesterday. Permcath placed, had dialysis session #1 yesterday and session #2 this AM. Lungs sound much better today. Appreciate Dr Parikh's assistance. Will dialyze at [place] [facility] as outpatient - social work consulted to help coordinate getting her set up in [place]. (2) RALPH (acute kidney injury): in context of CKD stage 5 as above (3) Acute on chronic systolic heart failure: in setting of CKD 5 and RALPH --- no improvement in her volume overloaded state despite attempts at diuresis with IV diuretics over this hospitalization. s/p initiation of HD yesterday. appreciate nephrology assistance. (4) Tinea pedis: Terbinafine cream BID IMPROVED Continue local care with dressings, etc (5) Atrial fibrillation with RVR: Rates acceptable. Cont BB. eliquis BID. (6) Diabetes mellitus with neuropathy: no hemoglobin a1c over 6% last 2-3 years. previous FSBS's were all <125. does not appear she is a diabetic. In fact has had AM hypoglycemia several times this hospital stay. Check cortisol level AM - r/o adrian's. (7) Hypertension: Continue amlodipine/hydralazine/coreg. Controlled. (8) Hypothyroidism: Labile TSHs of late. Prior TSH was depressed, now TSH this admission is elevated. Uncertain cause - suspect noncompliance with meds. Would simply leave dose as is and repeat the TSH in 3-4 weeks. (9) Hyponatremia: anticipate Na level will improve with serial HD sessions BMP am (10) Alcohol abuse: daughter reports regular, chronic alcohol abuse over long period of time. counseled patient on importance of abstinence in setting of ESRD on multiple occasions. no signs/symptoms of etoh withdrawal. (11) DVT prophylaxis: Eliquis 2.5 mg twice daily PT, OT stated today she is NOT safe for home unless she has 26/01 supervision daughter extensively updated by phone 03/29 and 03/31 and at bedside 04/02/19 Subjective patient had HD yesterday and again this am. she states "I'm ready to go home - I'm bored." daughter at bedside this am. numerous questions about the dialysis process. still requiring NC O2. eating poorly. Review of Systems Constitutional: + anorexia; no fever and no chills Respiratory: + dyspnea on exertion; no cough, no dyspnea, no sputum production and no wheezing Cardiovascular: no chest pain and no edema Gastrointestinal: no abdominal pain, no nausea and no vomiting Physical Exam Constitutional: no acute distress a little agitated today ENMT: external ear and nose normal, oropharynx normal Mouth: + lip abnormality (upper lip with venous malformation vs hemangioma) Respiratory: no respiratory distress Auscultation: lungs clear to auscultation bilaterally; no crackles and no wheezes lungs MUCH BETTER today Cardiovascular: Rate/Rhythm: regular rate and + irregularly irregular Heart Sounds: normal S1, normal S2 and + murmur (2/6 LSB (systolic)) Vessels: posterior tibial pulses present and dorsalis pedis pulses present; no JVD Extremities: + vascular access device (right chest dialysis catheter in place); no edema Gastrointestinal (Abdomen): normal bowel sounds, soft, nontender, no hepatosplenomegaly Skin: + ecchymosis (extensive upper right chest and extending to bottom of neck) Psychiatric: Orientation: alert Affect: + anxious affect Results & Data Vital Signs (Past 12 Hours) Vital Signs Temp Pulse Pulse Pulse Resp BP BP 04/02/19 19:44 36.9 C 99 H 18 153/77 H 04/02/19 15:53 36.4 C L 75 18 04/02/19 13:20 36.6 C 76 04/02/19 12:40 69 161/83 H 04/02/19 12:23 74 151/77 H 04/02/19 12:00 69 152/76 H 04/02/19 11:40 67 152/83 H 04/02/19 11:23 69 124/82 04/02/19 11:00 78 161/61 H 04/02/19 10:40 66 136/78 04/02/19 10:20 66 151/77 H 04/02/19 10:16 74 131/65 04/02/19 10:05 36.6 C 72 BP Pulse Ox 04/02/19 19:44 96 04/02/19 15:53 130/79 96 04/02/19 13:20 164/79 H 04/02/19 12:40 04/02/19 12:23 04/02/19 12:00 04/02/19 11:40 04/02/19 11:23 04/02/19 11:00 04/02/19 10:40 04/02/19 10:20 04/02/19 10:16 04/02/19 10:05 Laboratory Results Laboratory Results - last 24 hr 04/02/19 06:38 Sodium 131 L Potassium 3.5 Chloride 97 L Carbon Dioxide 22 Anion Gap 12.0 H BUN 26 H Creatinine 2.34 H D Est Cr Clr Drug Dosing 19.3 Est GFR ( Amer) 22.5 Est GFR (Non-Af Amer) 19.4 BUN/Creatinine Ratio 11.1 Glucose 57 L Calcium 8.0 L Phosphorus 3.0 Albumin 2.9 L PG Care Time/CCT Total # of Minutes Spent Total Time Spent with Patient: Total time spent is greater than 50% in coordination of care (as documented) at patient's floor/unit and/or counseling patient: (1) Tinea pedis Laterality: bilateral Qualified Code(s): B35.3 - Tinea pedis (2) Hypothyroidism Hypothyroidism type: acquired Qualified Code(s): E03.9 - Hypothyroidism, unspecified (3) CKD (chronic kidney disease) Chronic kidney disease stage: unspecified stage Qualified Code(s): N18.9 - Chronic kidney disease, unspecified (4) Diabetes mellitus with neuropathy Diabetes mellitus long term care administrator insulin use: without long term care administrator use Diabetes mellitus type: type 2 Qualified Code(s): E11.40 - Type 2 diabetes mellitus with diabetic neuropathy, unspecified (5) Hypertension Hypertension type: unspecified Qualified Code(s): I10 - Essential (primary) hypertension
[2019-04-03] MEDS: LEVOTHYROXINE SODIUM 150 MCG TABLET PO SCH (05:49)
[2019-04-03 06:56] LABS: Albumin Level 2.8 gm/dl (3.4-5.0); Calcium 8.2 mg/dl (8.5-10.1); Est GFR (African American) 29.5; Est GFR (Non-African American) 25.5; Phosphorus 2.3 mg/dl (2.5-4.9); Potassium 3.4 mmol/L (3.5-5.1)
[2019-04-03] MEDS ORDERED: SODIUM CHLORIDE 0.9% 1000ML 1,000 ML IV PRN (07:00)
[2019-04-03] MEDS ORDERED: POTASSIUM CHLORIDE 10 MEQ TABCR PO STA (08:27)
[2019-04-03] MEDS: FLUTICASONE/SALMETEROL 250/50 (ADVAIR) 14 PUFF/1 INHALER INH SCH ×2 (09:20→20:35)
[2019-04-03] MEDS: EUCERIN CR 120 GM JAR EXT SCH ×2 (09:21→20:42)
[2019-04-03] MEDS: APIXABAN 2.5 MG TAB PO SCH ×2 (09:21→20:40)
[2019-04-03] MEDS: ASPIRIN 81 MG ECTAB PO SCH (09:21)
[2019-04-03] MEDS: AMLODIPINE BESYLATE 5 MG TAB PO SCH (09:21)
[2019-04-03] MEDS: VENLAFAXINE HCL XR 75 MG CAPXR PO SCH (09:21)
[2019-04-03] MEDS: BUMETANIDE 1 MG TAB PO SCH ×2 (09:22→17:06)
[2019-04-03] MEDS: TERBINAFINE CR 30 GM TUBE EXT SCH ×2 (09:22→20:42)
[2019-04-03] MEDS: carvediloL 6.25 MG TAB PO SCH ×2 (09:22→20:41)
[2019-04-03] MEDS: FOLIC ACID 1 MG TAB PO SCH (09:22)
--- NOTE | 2019-04-03 09:44 | Nephrology Progress Note ---
Date of Service April 03, 2019 Assessment & Plan (1) RALPH (acute kidney injury): 78 y o F with advanced CKD with atrophic kidney admitted with RALPH and bleeding from foot with dry scaly skin. Developed volume overload and pulmonary congestion with IV fluid with h/o CHF. Off of diuretics, seems volume overload with relatively stable renal function and electrolyte. Urine output remained low despite being on high dose diuretics and renal function stayed stable without any improvement. Eventually decided to start on dialysis, had 1st dialysis treatment on 04/01/2019 via right IJ tunneled dialysis catheter. Received venofer 1 gm. --next dialysis Thursday for 3 h and then DC pending outpt schedule --continue bumex 2 mg BID -- continue calcitriol --discharge pending outpatient dialysis set up Will follow (2) CKD (chronic kidney disease): -- Renal vascular disease. R kidney is atrophic/nonfunctional -- Baseline creatinine ~ 2.5 Subjective Nighat was seen and examined in her room this am. She was awake alert and oriented, sitting in chair and overall feeling better. Renal function , electrolyte acceptable. Had second HD yesterday. Review of Systems Review of Systems: All systems reviewed & are unremarkable except as noted in HPI & below Physical Exam Constitutional: WD/WN, vitals as above no acute distress Respiratory: Auscultation: lungs clear to auscultation bilaterally Cardiovascular: Rate/Rhythm: regular rate and regular rhythm Heart Sounds: normal S1 and normal S2 Extremities: + edema Neurologic: moves all extremities and awake; not confused Psychiatric: A+Ox3, euthymic affect Results & Data Vital Signs (Past 12 Hours) Vital Signs Temp Pulse Pulse Resp BP BP Pulse Ox 04/03/19 07:24 37.1 C 88 20 149/74 H 96 04/03/19 04:00 36.9 C 73 22 118/72 94 04/02/19 23:00 36.7 C 87 18 138/83 95 PG Care Time/CCT Total # of Minutes Spent Total Time Spent with Patient: Total time spent is greater than 50% in coordination of care (as documented) at patient's floor/unit and/or counseling patient: (1) CKD (chronic kidney disease) Chronic kidney disease stage: unspecified stage Qualified Code(s): N18.9 - Chronic kidney disease, unspecified
[2019-04-04 06:23] LABS: Hematocrit (blood only) 34.5 % (37-47); Hemoglobin 11.4 g/dL (12.0-16.0); Mean Corpuscular Hemoglobin 29.7 pg (25-34); Mean Corpuscular Volume 89.8 fL (80-100); Mean Platelet Volume 9.9 fL (7.4-10.4); Platelet Count 152 K/uL (130-400); RDW Coefficient of Variation 16.9 % (11.5-14.5); RDW Standard Deviation 55.9 fL (36.4-46.3); Red Blood Count 3.84 M/uL (4.2-5.4); White Blood Count 6.31 K/uL (4.8-10.8)
--- NOTE | 2019-04-04 06:26 | Hospitalist Progress Note ---
Date of Service April 03, 2019 Assessment & Plan (1) End stage chronic kidney disease: previously CKD stage 5 with progression to ESRD requiring initiation of HD this admission. s/p 2 HD sessions (Thursday and Thursday) with improved volume status. appreciate nephrology assistance. social work to assist w/ arranging outpatient HD. (2) CKD (chronic kidney disease): Chronic kidney disease stage V with baseline Cr 2.5 to 3. CrCl on 24-hour urine <5. CKD stage 5 progressed to ESRD. On basis of renal vascular disease per nephrology records. Chronic, significant proteinuria seen on serial u/a's over the years. Will dialyze at [place] [facility] as outpatient - social work consulted to help coordinate getting her set up in [place]. (3) Acute respiratory failure with hypoxia: 2nd to volume overloaded state in setting of depressed EF and development of ESRD. resolved. O2 weaned off today. (4) RALPH (acute kidney injury): in context of CKD stage 5 as above (5) Acute on chronic systolic heart failure: volume status MUCH improved s/p HD x 2 sessions. HD was initiated after she had no improvement in her volume overloaded state despite attempts at diuresis with IV diuretics over her lengthy hospitalization. continue BB. remains on bumex orally - defer to nephrology if necessary to continue. EF 25-30% on echo this admission. (6) Tinea pedis: Terbinafine cream BID IMPROVING Continue local care with dressings, etc (7) Atrial fibrillation with RVR: Rates acceptable. Cont BB. eliquis BID. (8) Hypertension: Continue amlodipine/hydralazine/coreg. Controlled. (9) Hypothyroidism: Labile TSHs of late. Prior TSH was depressed, now TSH this admission is elevated. Uncertain cause - suspect noncompliance with meds. Would simply leave dose as is and repeat the TSH in 3-4 weeks. (10) Hyponatremia: Na level today 134 should continue to improve with dialysis BMP am (11) Alcohol abuse: daughter reports regular, chronic alcohol abuse over long period of time. counseled patient on importance of abstinence in setting of ESRD on multiple occasions. no signs/symptoms of etoh withdrawal. (12) Hypoglycemia: has had AM hypoglycemia several times this admission but no symptoms from it. a1c not c/w T2DM. cortisol level wnl. random BSG today was 75. follow. suspect due to poor glycogen stores in face of bodily stress from events of this hospital stay. (13) DVT prophylaxis: Eliquis 2.5 mg twice daily PT, OT stated she is NOT safe for home unless she has 26/01 supervision daughter extensively updated by phone 03/29, 03/31, 04/03; updated her at bedside 04/02/19 Subjective patient in great mood today/good spirits even smiling during my visit I took her O2 off after 10+ minutes her O2 sats were minimum of 90% she denied any pain in feet denied dyspnea eating better today she is getting used to idea of being on dialysis Review of Systems Constitutional: no fever and no chills Respiratory: no cough, no dyspnea and no dyspnea on exertion Cardiovascular: no chest pain, no orthopnea and no paroxysmal nocturnal dyspnea Gastrointestinal: no abdominal pain, no nausea and no vomiting Physical Exam Constitutional: no acute distress and no altered mental status looks much better today ENMT: external ear and nose normal, oropharynx normal Mouth: + lip abnormality (upper lip with venous malformation vs hemangioma) Respiratory: no respiratory distress Auscultation: lungs clear to auscul tation bilaterally; no crackles and no wheezes Cardiovascular: Rate/Rhythm: regular rate and + irregularly irregular Heart Sounds: normal S1, normal S2 and + murmur (2/6 LSB (systolic)) Vessels: posterior tibial pulses present and dorsalis pedis pulses present; no JVD Extremities: + vascular access device (right chest dialysis catheter in place); no edema Gastrointestinal (Abdomen): normal bowel sounds, soft, nontender, no hepatosplenomegaly Skin: + ecchymosis (extensive upper right chest and extending to bottom of neck) severe tinea pedis b/l feet but no superimposed cellulitis; severe cracking of heels b/l Psychiatric: A+Ox3, euthymic affect Results & Data Vital Signs (Past 12 Hours) Vital Signs Temp Pulse Resp BP Pulse Ox 04/04/19 00:08 37.1 C 63 20 130/58 L 92 Laboratory Results Laboratory Results - last 24 hr 04/03/19 04/03/19 04/03/19 05:59 07:53 15:10 Sodium 134 L Potassium 3.4 L Chloride 98 Carbon Dioxide 27 Anion Gap 8.0 BUN 17 Creatinine 1.87 H D Est Cr Clr Drug Dosing 24.0 Est GFR ( Amer) 29.5 Est GFR (Non-Af Amer) 25.5 BUN/Creatinine Ratio 9.0 L Glucose 57 L POC Glucose 75 Calcium 8.2 L Phosphorus 2.3 L Albumin 2.8 L Cortisol AM Sample 17.38 PG Care Time/CCT Total # of Minutes Spent Total Time Spent with Patient: Total time spent is greater than 50% in coordination of care (as documented) at patient's floor/unit and/or counseling patient: (1) CKD (chronic kidney disease) Chronic kidney disease stage: unspecified stage Qualified Code(s): N18.9 - Chronic kidney disease, unspecified (2) Tinea pedis Laterality: bilateral Qualified Code(s): B35.3 - Tinea pedis (3) Hypertension Hypertension type: unspecified Qualified Code(s): I10 - Essential (primary) hypertension (4) Hypothyroidism Hypothyroidism type: acquired Qualified Code(s): E03.9 - Hypothyroidism, unspecified
[2019-04-04] MEDS: LEVOTHYROXINE SODIUM 150 MCG TABLET PO SCH (06:29)
[2019-04-04 07:06] LABS: Albumin Level 2.8 gm/dl (3.4-5.0); BUN Creatinine Ratio 9.1 (10-20); Calcium 8.4 mg/dl (8.5-10.1); Creatinine Clr Calc Pharmacy 20.4 ml/min; Est GFR (African American) 25.1; Est GFR (Non-African American) 21.6; Potassium 3.5 mmol/L (3.5-5.1)
--- NOTE | 2019-04-04 07:19 | Anesthesiology Progress Note ---
Date of Service April 04, 2019 Anesthesia Post Procedure Vital Signs Vital Signs: Temp Pulse Pulse Resp BP BP Pulse Ox 04/04/19 00:08 37.1 C 63 20 130/58 L 92 04/03/19 14:56 36.5 C 93 H 20 155/75 H 98 04/03/19 11:31 36.7 C 77 20 140/68 94 04/03/19 07:24 37.1 C 88 20 149/74 H 96 Pain Intensity Bilateral Foot: Pain Intensity: 0 Right Chest: Pain Intensity: 2 Notes Mental Status: alert / awake / arousable and participated in evaluation Nausea / Vomiting: adequately controlled Pain: adequately controlled Airway Patency, RR, SpO2: stable & adequate BP & HR: stable & adequate Hydration State: stable & adequate Anesthetic Complications: no major complications apparent and Pt Satisfied with anesthetic care
[2019-04-04] MEDS: FOLIC ACID 1 MG TAB PO SCH (09:21)
[2019-04-04] MEDS: ASPIRIN 81 MG ECTAB PO SCH (09:21)
[2019-04-04] MEDS: VENLAFAXINE HCL XR 75 MG CAPXR PO SCH (09:21)
[2019-04-04] MEDS: CALCITRIOL 0.25 MCG CAPSULE PO SCH (09:21)
[2019-04-04] MEDS: APIXABAN 2.5 MG TAB PO SCH ×2 (09:22→20:01)
[2019-04-04] MEDS: EUCERIN CR 120 GM JAR EXT SCH ×2 (09:22→20:01)
[2019-04-04] MEDS: FLUTICASONE/SALMETEROL 250/50 (ADVAIR) 14 PUFF/1 INHALER INH SCH ×2 (09:26→20:00)
--- NOTE | 2019-04-04 10:19 | Nephrology Progress Note ---
Date of Service April 04, 2019 Assessment & Plan (1) ESRD (end stage renal disease) on dialysis: -- ESRD due to vascular disease and CRS. R kidney was atrophic/nonfunctional. R IJ THC in placed 04/01/19 and patient had 1st Hd treatment -- Will schedule HD for today. Continue MWF schedule -- accounting advisory services manager to set up outpatient HD at [facility] (2) Discharge planning issues: -- Medical history includes AODM, HTN, atrial fibrillation and alcohol use -- Recommend PT evaluation to ensure patient can live independently -- Remains on O2. Attempt to taper to off Subjective Ms. Figueroa was seen & examined in her hospital room this morning. She remains on O2 but denies any complications overnight. She has not recently undergone PT evaluation. She is awaiting HD later this morning Review of Systems Constitutional: + weakness; no fever and no chills Eyes: no worsening vision and no problem reported Ear, Nose, Mouth, Throat: no problem reported Respiratory: + dyspnea; no cough Cardiovascular: no chest pain, no palpitations and no edema Gastrointestinal: no abdominal pain, no nausea, no vomiting and no diarrhea/loose stools Genitourinary: no dysuria and no hematuria Musculoskeletal: no back pain Integumentary: no rash Neurologic: no falls, no dizziness and no confusion Physical Exam Constitutional: + frail appearing Eyes: PERRL, conjunctivae normal, anicteric sclerae ENMT: Mouth: + dry oral mucous membranes Neck: trachea midline, no thyromegaly Respiratory: normal respiratory effort, lungs clear to auscultation Cardiovascular: Rate/Rhythm: regular rate and regular rhythm Extremities: no edema (poor skin turgor) Gastrointestinal (Abdomen): normal bowel sounds, soft, nontender, no hepatosplenomegaly Musculoskeletal: Extremities: no cyanosis Skin: no rashes, warm and dry Neurologic: awake; not confused Results & Data Vital Signs (Past 12 Hours) Vital Signs Temp Pulse Resp BP BP Pulse Ox 04/04/19 07:43 36.6 C 84 16 163/80 H 90 04/04/19 00:08 37.1 C 63 20 130/58 L 92 PG Care Time/CCT Total # of Minutes Spent Total Time Spent with Patient: Total time spent is greater than 50% in coordination of care (as documented) at patient's floor/unit and/or counseling patient:
[2019-04-04] MEDS: BUMETANIDE 1 MG TAB PO SCH ×2 (13:43→16:19)
[2019-04-04] MEDS: carvediloL 6.25 MG TAB PO SCH ×2 (13:44→20:01)
[2019-04-04] MEDS: AMLODIPINE BESYLATE 5 MG TAB PO SCH (13:44)
[2019-04-04] MEDS: TERBINAFINE CR 30 GM TUBE EXT SCH ×2 (13:45→20:01)
--- NOTE | 2019-04-04 13:45 | Palliative Care Progress Note ---
Date of Service April 04, 2019 Subjective Patient changed her mind and decided to give dialysis a try. She had perm cath placed and underwent dialysis. Tolerated well according to documentation. She is undergoing another dialysis treatment today. Palliative care will sign off at this time, but please reconsult us if any further needs arise. Results & Data Vital Signs (Past 12 Hours) Vital Signs Temp Pulse Pulse Pulse Resp BP BP 04/04/19 13:17 37.0 C 87 87 158/96 H 04/04/19 13:00 64 135/81 04/04/19 12:40 77 169/87 H 04/04/19 12:20 67 166/78 H 04/04/19 12:00 76 151/87 H 04/04/19 11:40 68 144/80 H 04/04/19 11:20 90 161/84 H 04/04/19 11:00 75 160/87 H 04/04/19 10:40 70 155/77 H 04/04/19 10:16 37.3 C 77 84 77 153/77 H 04/04/19 07:43 36.6 C 84 16 163/80 H BP Pulse Ox 04/04/19 13:17 158/96 H 04/04/19 13:00 04/04/19 12:40 04/04/19 12:20 04/04/19 12:00 04/04/19 11:40 04/04/19 11:20 04/04/19 11:00 04/04/19 10:40 04/04/19 10:16 04/04/19 07:43 90 PG Care Time/CCT Total # of Minutes Spent Total Time Spent with Patient: Total time spent is greater than 50% in coordination of care (as documented) at patient's floor/unit and/or counseling patient:
--- NOTE | 2019-04-04 16:25 | XRay Report ---
XR chest 2V routine CLINICAL HISTORY: Ongoing hypoxia ?PNA COMPARISON STUDY: Chest radiograph March 25, 2019. FINDINGS: Right internal jugular dual lumen catheter is in place. There is no pneumothorax. Marked ca rdiomegaly is again noted. Pulmonary edema has slightly improved since exam of March 25, 2019. Sm [id number] bilateral pleural effusions have slightly increased. This extensive left basilar opac ity. Extensive vascular calcification is present. IMPRESSION: 1. Mild pulmonary edema, slightly improved prior exam of March 25, 2019. 2. Mild increase in [id number] bilateral pleural effusions with extensive bibasilar opacities, greater on the left. These may reflect atelectasis or consolidation. Electronically signed by: Lawrence Patricio M.D. 04/04/2019 4:24 PM
--- NOTE | 2019-04-05 00:35 | Hospitalist Progress Note ---
Date of Service April 05, 2019 Assessment & Plan (1) End stage chronic kidney disease: previously CKD stage 5 with progression to ESRD requiring initiation of HD this admission. s/p 3 HD sessions (Thursday, Thursday, Thursday) with improved volume status and reduced O2 requirement. appreciate nephrology management social work to assist w/ arranging outpatient HD. (2) Acute respiratory failure with hypoxia: CXR showing persistent but improving pleural effusions suspected cause of ongoing hypoxia. Will get 2 step prior to discharge unless going to [facility]. (3) RALPH (acute kidney injury): more of progression of CKD given non-reversibility with IV fluids (4) Acute on chronic systolic heart failure: Global severe dysfunction remains. Small pericardial effusion. Suspect will improve with diuresis but will need cardiology follow up on d/c. Continue BB. Continue on Bumex given continued good urination will make her less reliant on dialysis. (5) Tinea pedis: Terbinafine cream BID Pending fungal cultures from toe nail Continue local care with dressings, etc Follow up podiatry (6) Atrial fibrillation with RVR: Rates acceptable. Cont BB. eliquis BID. (7) Hypertension: Continue amlodipine/hydralazine/coreg. Controlled. (8) Hypothyroidism: Labile TSHs of late. Prior TSH was depressed, now TSH this admission is elevated. Uncertain cause - suspect noncompliance with meds. Would simply leave dose as is and repeat the TSH in 3-4 weeks. (9) Alcohol abuse: daughter reports regular, chronic alcohol abuse over long period of time. counseled patient on importance of abstinence in setting of ESRD on multiple occasions. no signs/symptoms of alcohol withdrawal throughout admission (10) Hypoglycemia: suspect due to poor glycogen stores in face of bodily stress from events of this hospital stay. (11) DVT prophylaxis: Eliquis 2.5 mg twice daily PT, OT stated she is NOT safe for home unless she has 24/7 supervision - last case management note reports awaiting authentication for [facility] Disposition - she is now medically stable for discharge however outpatient social issues remain outstanding. Subjective Patient underwent dialysis today and tolerated this well. Continued need for oxygen but has much improved since I last saw her 7 days ago. She denies any shortness of breath or cough. No chest pain or dizziness. Review of Systems 2 Review of Systems: All systems reviewed & are unremarkable except as noted in HPI & below Physical Exam Constitutional: well developed, + ill appearing and + obese Eyes: no conjunctival abnormality ENMT: external ear and nose normal, oropharynx normal Mouth: + lip abnormality (Upper lip swollen, improved from prior exam 1 week ago) Neck: normal visual inspection, trachea midline and + thick neck Respiratory: normal respiratory effort; no respiratory distress and does not use accessory muscles Auscultation: + diminished lung sounds (bibasal); no crackles, no rales, no rhonchi and no wheezes Cardiovascular: Rate/Rhythm: + irregularly irregular Heart Sounds: normal S1 and normal S2; no murmur Gastrointestinal (Abdomen): normal bowel sounds, soft, nontender, no hepatosplenomegaly Musculoskeletal: no cyanosis or clubbing, extremities motor strength 5/5 Skin: + nail abnormality (Onychomycoses thick on all toenails) Neurologic: moves all extremities and awake; no focal motor deficits Motor/Sensory: no sensory deficit Psychiatric: A+Ox3, euthymic affect Results & Data Vital Signs (Past 12 Hours) Vital Signs Temp Pulse Pulse Resp BP BP BP 04/04/19 23:00 98.4 F 92 H 21 134/70 04/04/19 20:00 71 20 134/83 04/04/19 15:00 97.9 F 68 18 150/77 H 04/04/19 13:47 76 155/82 H 04/04/19 13:17 98.6 F 87 87 158/96 H 158/96 H 04/04/19 13:00 64 135/81 04/04/19 12:40 77 169/87 H Pulse Ox 04/04/19 23:00 92 04/04/19 20:00 90 04/04/19 15:00 98 04/04/19 13:47 04/04/19 13:17 04/04/19 13:00 04/04/19 12:40 PG Care Time/CCT Total # of Minutes Spent Total Time Spent with Patient: Total time spent is greater than 50% in coordination of care (as documented) at patient's floor/unit and/or counseling patient: (1) Tinea pedis Laterality: bilateral Qualified Code(s): B35.3 - Tinea pedis (2) Hypertension Hypertension type: unspecified Qualified Code(s): I10 - Essential (primary) hypertension (3) Hypothyroidism Hypothyroidism type: acquired Qualified Code(s): E03.9 - Hypothyroidism, unspecified
[2019-04-05] MEDS: LEVOTHYROXINE SODIUM 150 MCG TABLET PO SCH (06:09)
[2019-04-05 06:37] LABS: Hematocrit (blood only) 36.7 % (37-47); Hemoglobin 11.8 g/dL (12.0-16.0); Mean Corpuscular Hemoglobin 28.8 pg (25-34); Mean Corpuscular Hgb Conc 32.2 g/dL (32-36); Mean Corpuscular Volume 89.5 fL (80-100); Mean Platelet Volume 10.3 fL (7.4-10.4); Platelet Count 150 K/uL (130-400); RDW Coefficient of Variation 16.8 % (11.5-14.5); RDW Standard Deviation 55.2 fL (36.4-46.3); White Blood Count 5.74 K/uL (4.8-10.8)
[2019-04-05 07:27] LABS: BUN Creatinine Ratio 6.3 (10-20); Calcium 8.2 mg/dl (8.5-10.1); Creatinine Clr Calc Pharmacy 26.2 ml/min; Est GFR (African American) 34.1; Est GFR (Non-African American) 29.4; Potassium 3.4 mmol/L (3.5-5.1)
[2019-04-05] MEDS: FLUTICASONE/SALMETEROL 250/50 (ADVAIR) 14 PUFF/1 INHALER INH SCH ×2 (09:06→20:37)
[2019-04-05] MEDS: FOLIC ACID 1 MG TAB PO SCH (09:07)
[2019-04-05] MEDS: BUMETANIDE 1 MG TAB PO SCH ×2 (09:07→18:06)
[2019-04-05] MEDS: EUCERIN CR 120 GM JAR EXT SCH ×2 (09:08→20:41)
[2019-04-05] MEDS: AMLODIPINE BESYLATE 5 MG TAB PO SCH (09:08)
[2019-04-05] MEDS: VENLAFAXINE HCL XR 75 MG CAPXR PO SCH (09:08)
[2019-04-05] MEDS: carvediloL 6.25 MG TAB PO SCH ×2 (09:08→20:38)
[2019-04-05] MEDS: ASPIRIN 81 MG ECTAB PO SCH (09:08)
[2019-04-05] MEDS: TERBINAFINE CR 30 GM TUBE EXT SCH ×2 (09:08→20:41)
[2019-04-05] MEDS: APIXABAN 2.5 MG TAB PO SCH ×2 (09:09→20:41)
--- NOTE | 2019-04-05 10:16 | Nephrology Progress Note ---
Date of Service April 05, 2019 Assessment & Plan (1) ESRD (end stage renal disease) on dialysis: -- ESRD due to vascular disease and CRS. R kidney was atrophic/nonfunctional. R IJ THC in placed 04/01/19 and patient had 1st Hd treatment -- Continue MWF HD schedule. Next HD in am. CXR reviewed. Patient has mild CHF and pleural effusions. Will order UF -- check services clerk to set up outpatient HD at [facility] (2) Discharge planning issues: -- Medical history includes AODM, HTN, atrial fibrillation and alcohol use -- Recommend PT evaluation for strengthening. Arrangements are being made for [facility] -- Remains on O2. Attempt to taper to off Subjective Ms. Figueroa was dialyzed yesterday for 2 L UF. There were no complications. She remains on O2 at 2 L/min NC. Ms. Figueroa reports that she was able to ambulate in physical therapy today using a cane. Review of Systems Constitutional: + weakness; no fever and no chills Eyes: no worsening vision and no problem reported Ear, Nose, Mouth, Throat: no problem reported Respiratory: + dyspnea; no cough Cardiovascular: no chest pain, no palpitations and no edema Gastrointestinal: no abdominal pain, no nausea, no vomiting and no diarrhea/loose stools Genitourinary: no dysuria and no hematuria Musculoskeletal: no back pain Integumentary: no rash Neurologic: no falls, no dizziness and no confusion Physical Exam Constitutional: + frail appearing Eyes: PERRL, conjunctivae normal, anicteric sclerae ENMT: Mouth: + dry oral mucous membranes Neck: trachea midline, no thyromegaly Respiratory: normal respiratory effort, lungs clear to auscultation Cardiovascular: Rate/Rhythm: regular rate and regular rhythm Extremities: no edema (poor skin turgor) Gastrointestinal (Abdomen): normal bowel sounds, soft, nontender, no hepatosplenomegaly Musculoskeletal: Extremities: no cyanosis Skin: no rashes, warm and dry Neurologic: awake; not confused Results & Data Vital Signs (Past 12 Hours) Vital Signs Temp Pulse Resp BP BP Pulse Ox 04/05/19 07:11 36.9 C 75 18 146/72 H 92 04/04/19 23:00 36.9 C 92 H 21 134/70 92 Laboratory Results Laboratory Tests 04/04/19 04/04/19 04/05/19 06:00 06:00 06:20 WBC 6.31 5.74 Hgb 11.4 L 11.8 L Hct 34.5 L 36.7 L Plt Count 152 150 Sodium 132 L Potassium 3.5 Chloride 96 L Carbon Dioxide 26 BUN 20 H Creatinine 2.14 H Glucose 53 L* Calcium 04/05/19 06:20 WBC Hgb Hct Plt Count Sodium 133 L Potassium 3.4 L Chloride 94 L Carbon Dioxide 29 BUN 10 D Creatinine 1.66 H D Glucose 62 L Calcium 8.2 L PG Care Time/CCT Total # of Minutes Spent Total Time Spent with Patient: Total time spent is greater than 50% in coordination of care (as documented) at patient's floor/unit and/or counseling patient:
--- NOTE | 2019-04-05 23:46 | Hospitalist Progress Note ---
Date of Service April 05, 2019 Assessment & Plan (1) End stage chronic kidney disease: previously CKD stage 5 with progression to ESRD requiring initiation of HD this admission. s/p 3 HD sessions (Thursday, Thursday, Thursday) with improved volume status and reduced O2 requirement Still has pleural effusions likely the cause of ongoing O2 requirement appreciate nephrology management (2) Acute respiratory failure with hypoxia: CXR showing persistent but improving pleural effusions suspected cause of ongoing hypoxia. Plan for d/c to [facility] therefore no need for 2 step at this time (3) RALPH (acute kidney injury): questionable - more of progression of CKD given non-reversibility with IV fluids (4) Acute on chronic systolic heart failure: Global severe dysfunction remains. Small pericardial effusion. Suspect will improve with diuresis but will need cardiology follow up on d/c. Continue BB. Continue on Bumex given continued good urination will make her less reliant on dialysis. (5) Tinea pedis: Terbinafine cream BID Pending fungal identification from toe nail Continue local care with dressings, etc Follow up podiatry (6) Atrial fibrillation with RVR: Rates adequate on carvedilol Anticoagulation with eliquis BID. (7) Hypertension: Continue amlodipine/hydralazine/coreg. Controlled. (8) Hypothyroidism: Labile TSHs of late. Prior TSH was depressed, now TSH this admission is elevated. Uncertain cause - suspect noncompliance with meds. Continue current dose, repeat TSH in 3-4 weeks. (9) Alcohol abuse: daughter reports regular, chronic alcohol abuse over long period of time. no signs/symptoms of alcohol withdrawal throughout admission (10) Hypoglycemia: suspect due to poor glycogen stores in face of malnutrition, bodily stress and alcohol use. No treatment indicated but will continue to monitor (11) DVT prophylaxis: Eliquis 2.5 mg twice daily PT, OT stated she is NOT safe for home unless she has 24/ supervision - awaiting [facility] authorization and setup with dialysis Disposition - she is medically stable for discharge however outpatient social issues remain outstanding. Subjective Patient comfortable at rest. No shortness of breath. Ready to be discharged once SNF place and dialysis set up. No concerns or questions at this time. Review of Systems Review of Systems: All systems reviewed & are unremarkable except as noted in HPI & below Physical Exam Constitutional: well developed and + obese ENMT: external ear and nose normal, oropharynx normal Mouth: + lip abnormality (Upper lip swollen, improved from prior exam 1 week ago) Neck: trachea midline and + thick neck Respiratory: normal respiratory effort; no respiratory distress and does not use accessory muscles Cardiovascular: Rate/Rhythm: + irregularly irregular Heart Sounds: normal S1 and normal S2; no murmur Gastrointestinal (Abdomen): Inspection/Auscultation: normal bowel sounds Percussion/Palpation: abdomen soft; abdomen nontender and no guarding Musculoskeletal: no cyanosis or clubbing, extremities motor strength 5/5 Skin: + nail abnormality (Onychomycoses thick on all toenails) Neurologic: moves all extremities and awake; no focal motor deficits Motor/Sensory: no sensory deficit Psychiatric: A+Ox3, euthymic affect Results & Data Vital Signs (Past 12 Hours) Vital Signs Temp Pulse Pulse Resp BP Pulse Ox 04/05/19 23:40 98.2 F 79 18 133/66 90 04/05/19 15:00 97.7 F 77 18 119/69 93 PG Care Time/CCT Total # of Minutes Spent Total Time Spent with Patient: Total time spent is greater than 50% in coordination of care (as documented) at patient's floor/unit and/or counseling patient: (1) Tinea pedis Laterality: bilateral Qualified Code(s): B35.3 - Tinea pedis (2) Hypertension Hypertension type: unspecified Qualified Code(s): I10 - Essential (primary) hypertension (3) Hypothyroidism Hypothyroidism type: acquired Qualified Code(s): E03.9 - Hypothyroidism, unspecified
[2019-04-06] MEDS: LEVOTHYROXINE SODIUM 150 MCG TABLET PO SCH (06:05)
[2019-04-06] MEDS ORDERED: EPOETIN ALFA 10,000 UNITS/ML VIAL IV ONE (07:00)
[2019-04-06] MEDS ORDERED: SODIUM CHLORIDE 0.9% 1000ML 1,000 ML IV PRN (07:00)
[2019-04-06 08:03] LABS: Hematocrit (blood only) 33.5 % (37-47); Hemoglobin 10.8 g/dL (12.0-16.0); Mean Corpuscular Hgb Conc 32.2 g/dL (32-36); Mean Corpuscular Volume 89.8 fL (80-100); Mean Platelet Volume 10.5 fL (7.4-10.4); Platelet Count 138 K/uL (130-400); RDW Coefficient of Variation 16.9 % (11.5-14.5); RDW Standard Deviation 55.7 fL (36.4-46.3); Red Blood Count 3.73 M/uL (4.2-5.4); White Blood Count 5.01 K/uL (4.8-10.8)
[2019-04-06] MEDS: APIXABAN 2.5 MG TAB PO SCH (08:10)
[2019-04-06] MEDS: VENLAFAXINE HCL XR 75 MG CAPXR PO SCH (08:10)
[2019-04-06] MEDS: CALCITRIOL 0.25 MCG CAPSULE PO SCH (08:10)
[2019-04-06] MEDS: FOLIC ACID 1 MG TAB PO SCH (08:10)
[2019-04-06] MEDS: FLUTICASONE/SALMETEROL 250/50 (ADVAIR) 14 PUFF/1 INHALER INH SCH (08:13)
[2019-04-06] MEDS: EUCERIN CR 120 GM JAR EXT SCH (08:14)
[2019-04-06 08:35] LABS: BUN Creatinine Ratio 7.5 (10-20); Calcium 8.5 mg/dl (8.5-10.1); Creatinine Clr Calc Pharmacy 21.6 ml/min; Est GFR (African American) 26.6; Est GFR (Non-African American) 22.9; Potassium 3.5 mmol/L (3.5-5.1)
[2019-04-06] MEDS: TERBINAFINE CR 30 GM TUBE EXT SCH (09:15)
--- NOTE | 2019-04-06 10:33 | Nephrology Progress Note ---
Date of Service April 06, 2019 Assessment & Plan (1) ESRD (end stage renal disease) on dialysis: -- ESRD due to vascular disease and CRS. R kidney was atrophic/nonfunctional. R IJ THC in placed 04/01/19 and patient had 1st Hd treatment -- Continue MWF HD schedule. HD today. Orders have been placed in EMR and HD RN notified -- director of business services to set up outpatient HD at [facility] (2) Discharge planning issues: -- Medical history includes AODM, HTN, atrial fibrillation and alcohol use -- Recommend PT evaluation for strengthening. Arrangements are being made for [facility] Subjective Ms. Figueroa was seen & examined in preparation for HD this morning. She is breathing comfortably on RA this morning. Ms. Figueroa reports that she has been ambulating w/ physical therapy assistance. She is awaiting custodial placement Review of Systems Constitutional: + weakness; no fever and no chills Eyes: no worsening vision and no problem reported Ear, Nose, Mouth, Throat: no problem reported Respiratory: no cough and no dyspnea Cardiovascular: no chest pain, no palpitations and no edema Gastrointestinal: no abdominal pain, no nausea, no vomiting and no diarrhea/loose stools Genitourinary: no dysuria and no hematuria Musculoskeletal: no back pain Integumentary: no rash Neurologic: no falls, no dizziness and no confusion Physical Exam Constitutional: + frail appearing Eyes: PERRL, conjunctivae normal, anicteric sclerae ENMT: Mouth: + dry oral mucous membranes Neck: trachea midline, no thyromegaly Respiratory: normal respiratory effort, lungs clear to auscultation Cardiovascular: Rate/Rhythm: regular rate and regular rhythm Extremities: no edema (poor skin turgor) Gastrointestinal (Abdomen): normal bowel sounds, soft, nontender, no hepatosplenomegaly Musculoskeletal: Extremities: no cyanosis Skin: no rashes, warm and dry Neurologic: awake; not confused Results & Data Vital Signs (Past 12 Hours) Vital Signs Temp Pulse Pulse Pulse Resp BP BP 04/06/19 10:00 68 159/75 H 04/06/19 09:18 37.0 C 73 62 148/84 H 04/06/19 07:11 36.9 C 62 16 135/79 04/05/19 23:40 36.8 C 79 18 133/66 Pulse Ox 04/06/19 10:00 04/06/19 09:18 04/06/19 07:11 97 04/05/19 23:40 90 Laboratory Results Laboratory Tests 04/06/19 04/06/19 07:30 07:30 WBC 5.01 Hgb 10.8 L Hct 33.5 L Plt Count 138 Sodium 131 L Potassium 3.5 Chloride 95 L Carbon Dioxide 29 BUN 15 Creatinine 2.04 H D Glucose 66 L PG Care Time/CCT Total # of Minutes Spent Total Time Spent with Patient: Total time spent is greater than 50% in coordination of care (as documented) at patient's floor/unit and/or counseling patient:
[2019-04-06] MEDS: BUMETANIDE 1 MG TAB PO SCH (13:10)
[2019-04-06] MEDS: ASPIRIN 81 MG ECTAB PO SCH (13:10)
[2019-04-06] MEDS: AMLODIPINE BESYLATE 5 MG TAB PO SCH (13:10)
[2019-04-06] MEDS: carvediloL 6.25 MG TAB PO SCH (13:15)
[2019-04-06] MEDS ORDERED: bisacodyL 10 MG SUPP PR STA (14:24)
--- NOTE | 2019-04-06 15:04 | Discharge Summary ---
Date of Service April 06, 2019 Admission HPI Per Admitting Provider 78-year-old female with past medical history of diabetes mellitus with neuropathy, essential hypertension, hypothyroidism, chronic anemia, chronic kidney disease stage III-IV, atrial fibrillation, cardiomyopathy with severely reduced systolic function presumed to be ischemic in nature and lack of compliance. Presented to the ED with dry bleeding heels. Patient has been having dry skin for a long period of time, developed skin cracks and skin ulcers, has been seeing Dr. Haas electrostatic powder coating technician. When arrived to ER she was found to have a heart rate of 123, blood pressure was also borderline elevated. She was noticed to be dehydrated, ED physician give her a bolus of 500 cc and metoprolol 25 mg p.o. x1, heart rate significantly improved and she will be admitted for further evaluation and management, wound care for her both ulcers and her heels Primary Care Provider: Enzo Carrington MD Admission Exam Per Admitting Provider General patient appears to be comfortable, not in acute distress HEENT: Atraumatic , normocephalic /no jaundice /no pallor /anicteric /no dry mucous membrane /normal external ear inspection Neck: Supple /no swelling /central trach Heart: S1/S2 normal/regular rate and rhythm/no gallop /no rub /no murmur Lungs: Clear to auscultation bilaterally/normal chest with expansion/no rhonchi/no rales/no wheezing/no use of accessory muscles of respiration Abdomen: Soft/nontender/no guarding/no rebound/no organomegaly/no pulsatile mass Musculoskeletal: No swelling/no edema/no tenderness/normal range of motion Neuro exam: Awake alert oriented 3/cranial nerves II through XII appear to be intact/sensation intact/moves all extremities/no abnormal movements Psychiatric evaluation: No depressed mood/normal affect Skin: Dry skin, multiple superficial ulcers in both feet, appears to be bleeding, does not appear to be infected Extremity: Normal pulse/no pitting edema/no clubbing or cyanosis Principal Diagnosis Acute on chronic kidney disease End stage renal disease on dialysis Tinea pedis Onychomycosis Hypoglycemia Ischemic cardiomyopathy Systolic congestive heart failure Discharge Exam Constitutional well developed and + obese Eyes no conjunctival abnormality ENMT external ear and nose normal, oropharynx normal Mouth: + lip abnormality (Upper lip swollen, improving with dialysis) Neck trachea midline and + thick neck Respiratory normal respiratory effort; no respiratory distress and does not use accessory muscles Auscultation: + diminished lung sounds (bibasal); no crackles, no rales, no rhonchi and no wheezes Cardiovascular Rate/Rhythm: + irregularly irregular Heart Sounds: normal S1 and normal S2; no murmur Gastrointestinal (Abdomen) Inspection/Auscultation: normal bowel sounds Percussion/Palpation: abdomen soft; abdomen nontender and no guarding Musculoskeletal no cyanosis or clubbing, extremities motor strength 5/5 Head/Neck/Chest: no chest tenderness Skin + nail abnormality (Onychomycoses thick on all toenails) Neurologic moves all extremities and awake; no focal motor deficits Motor/Sensory: no sensory deficit Psychiatric A+Ox3, euthymic affect Discharge Data Allergies Allergy/AdvReac Type Severity Reaction Status Date / Time doxycycline Allergy Unknown Unknown Unverified 03/03/19 13:26 labetalol Allergy Unknown Unknown Unverified 03/03/19 13:26 lorazepam Allergy Unknown Unknown Unverified 03/03/19 13:26 Pork/Porcine Containing Allergy Unknown unknown Unverified 03/03/19 13:26 Products tetracycline Allergy Unknown unknown(not Unverified 03/03/19 13:26 100% sure if she's allergic to it) tramadol AdvReac Unknown dizzy, Verified 03/03/19 13:26 emesis Consultations 03/21/19 17:35 ED Decision to Admit Stat 03/21/19 22:24 Consult Nephrology Routine 03/29/19 10:24 Consult Vascular Surgery Routine 03/30/19 10:01 Consult Vascular Surgery Routine 03/31/19 10:31 Consult Palliative Care Routine 04/01/19 10:05 Consult Case Management - Discharge Planning Routine 04/06/19 14:51 Consult [employer] internet architect Routine Procedures Performed Operation Date: 04/01/19 14:00 Actual Procedures p Insertion Of Perm Catheter, Right Internal Jugular Approach, Ultrasound Localization Of Right Internal Jugular Vein, Fluoroscopy For Positioning, Mod erate Concious Sedation 1415 to 1430(Right) - Yoel Walker MD Ordered Studies 03/29/19 10:23 US venous mapping UE BI Routine 04/01/19 09:30 EV cvc insrt tunnel wo prt/fruit or nut crops farm manager Routine 04/01/19 13:12 US guide vascular access Routine Hospital Course (1) Tinea pedis: Initial patient complaint of bleeding feet secondary to chronic tinea pedis Terbinafine cream BID helped considerably throughout admission Pending fungal identification from toe nail Continue local care with dressings, etc Follow up podiatry (2) End stage chronic kidney disease: previously CKD stage 5 with progression to ESRD requiring initiation of HD this admission. s/p 3 HD sessions (Thursday, Thursday, Thursday) with improved volume status and reduced O2 requirement Still has pleural effusions likely the cause of ongoing O2 requirement Will continue dialysis as outpatient (3) Acute respiratory failure with hypoxia: CXR showing persistent but improving pleural effusions suspected cause of ongoing hypoxia. Plan for d/c to [facility] therefore no need for 2 step at this time (4) Acute on chronic systolic heart failure: Global severe dysfunction remains. Small pericardial effusion. Suspect will improve with diuresis but will need cardiology follow up on d/c. Continue BB. Continue on Bumex given continued good urination will make her less reliant on d ialysis. (5) Atrial fibrillation with RVR: Rates adequate on carvedilol Anticoagulation with eliquis BID. (6) Hypertension: Continue amlodipine/hydralazine/coreg. Controlled. (7) Hypothyroidism: Labile TSHs of late. Prior TSH was depressed, now TSH this admission is elevated. Uncertain cause - suspect noncompliance with meds. Continue current dose, repeat TSH in 3-4 weeks. (8) Alcohol abuse: daughter reports regular, chronic alcohol abuse over long period of time. no signs/symptoms of alcohol withdrawal throughout admission (9) Hypoglycemia: suspect due to poor glycogen stores in face of malnutrition, bodily stress and alcohol use. No treatment indicated but will continue to monitor Total Time Total Time Spent Total Time Spent (In Minutes): 40 Total Time Includes: Examination of the Patient, Discharge Planning, Medication Reconciliation and Communication With Other Providers Discharge Plan Discharge Items Patient Disposition: Transfer [facility] Living Fac Reason For Visit: RALPH/CKD Discharge Diagnosis: Acute on chronic kidney disease End stage renal disease on dialysis Tinea pedis Onychomycosis Hypoglycemia Ischemic cardiomyopathy Systolic congestive heart failure Condition on Discharge: Fair Goals: Wound healing on feet Improved oxygenation with reducing pleural effusions from dialysis Activity: Resume your previous activity Weightbearing: Full weightbearing Non-emergency contact: Primary Care Provider and Chief Catalyst Operator Call non-emergency contact if: you have any medication questions and your symptoms worsen Follow-up/Referrals: Kortney Parikh MD [Physician] - (to be arranged by nephrology clinic) Marc Garcia MD [Physician] - (in the next 1-2 months) Diet: Dialysis Renal Addtl Attending Provider Instructions: Therese Figueroa is a 78 year old female who presented to the ER with main complaint of bleeding from her feet. Previous diagnosis of psoriasis and was being treated with steroid creams although she has extensive onychomycosis and her foot scaling and sores have responded well to terbinafine cream. Fungal culture of toe nails confirmed yeast with further identification pending on discharge. Consider wound care follow up if wounds not healing. This appears to be a chronic issue with wound care images similar in nature since at least 2016 and suspect not healing due to patient compliance although I am also unclear whether it has ever been treated as a fungal infection rather than psoriasis. Recommend following up with her electrostatic powder coating technician (Dr Garcia) and diver tender in addition (non urgent). On admission she had an incidental elevation in her creatinine and nephrology were consulted. Given recent lasix use from last admission for heart failure in the setting of a.fib w/ RVR concern was for intravascular depletion now she was more rate controlled. However IV fluids lead to refractory pulmonary edema therefore suspect she was just developing worsening chronic kidney disease and after extensive discussions with the patient she decided to go ahead with dialysis. Echocardiogram continues to show persistent LV dysfunction from last admission in February therefore this also likely contributed. She remains on bumex as still making good urine which is helping her be less dialysis dependant. Pulmonary edema and pleural effusions improving since permacath placed and patient receiving dialysis. She developed hypoxic respiratory failure due to bilateral pleural effusions and pulmonary edema due to above. She had no O2 requirement prior to this admission. This is slowly improving with dialysis treatments and suspect she does not need oxygen longer term. Recommend outpatient follow up with cardiology regarding suspected ischemic cardiomyopathy and atrial fibrillation. She is non-compliant with medication at home and was felt not safe for discharge from PT and OT evaluations. Pending Studies at Discharge: Yes (Fungal culture yeast identification from toe clipping) Stand-Alone Forms: [facility] Skilled Items Patient informed of condition?: Yes DNR: Yes Discharge Level of Care: Skilled Communicable Disease: No Discharge Prognosis: Improving Lines: None Urinary Catheter: No Medications and DC Order Prescriptions: New terbinafine HCl 1 % Cream 1 applic EXT BID Qty: 30 RF: 0 carvedilol 6.25 mg Tablet 12.5 mg PO BID Qty: 60 RF: 0 amlodipine [Norvasc] 5 mg Tablet 10 mg PO QAM Qty: 60 RF: 0 bumetanide 1 mg Tablet 2 mg PO [id number] Qty: 120 RF: 0 Dermacerin Cream 1 applic EXT BID Qty: 95220 RF: 0 Eliquis 2.5 mg Tablet 2.5 mg PO BID Qty: 60 RF: 0 folic acid 1 mg Tablet 1 mg PO QAM Qty: 30 RF: 0 calcitriol 0.25 mcg Capsule 0.25 mcg PO MoWeFr@0900 Qty: 30 RF: 0 Continued fluticasone propion-salmeterol [Advair Diskus] 250-50 mcg/dose blister with device 1 puffs INH Q12H Qty: 60 RF: 11 hydralazine 25 mg tablet 25 mg PO TID Qty: 90 RF: 11 venlafaxine 75 mg capsule,extended release 24hr 75 mg PO QAM RF: 0 aspirin 81 mg tablet,delayed release (DR/EC) 81 mg PO QAM RF: 0 levothyroxine 150 mcg tablet 150 mcg PO QAM RF: 0 vitamin B complex [B Complex-Vitamin B12] tablet 1 tab PO QAM RF: 0 sodium bicarbonate 650 mg Tablet 650 mg PO BID Qty: 60 RF: 5 Changed ranitidine HCl 150 mg capsule 150 mg PO DAILY Qty: 60 RF: 11 Discontinued mupirocin 2 % ointment 1 appln TOP BID Qty: 15 RF: 0 furosemide 40 mg tablet 40 mg PO QAM RF: 0 amlodipine 10 mg tablet 10 mg PO QAM RF: 0 folic acid 1 mg tablet 1 mg PO QAM RF: 0 cholecalciferol (vitamin D3) 400 unit capsule 400 units PO QAM RF: 0 metoprolol tartrate 25 mg tablet 25 mg PO BID RF: 0 Discharge Orders: Discharge Order (Routine); Ordered 04/06/19 Ordered By: Rober Gregg Admission Data Admit Date/Time: 03/21/19 22:25 Attending Provider: Rober Gregg Admit Provider: Rajwinder Castro Primary Care Provider: Mike Carrington Providers: Yoel Walker ; Brady Hassan ; Diana Hardy Other Interventions: Discharge Summary Assessment (RN) Last Done: 04/06/19 14:45 DC Date/Time DO NOT enter until pt leaves facility: 04/06/19 14:50
== END 2019-04-06 14:50 | DRG 291 ==
LOC: ED 13:01 → 2E 22:25 → SUATTDRO 22:25 → 2E 22:54 → 2W 03-23 07:57
DX: B35.3 Tinea pedis; N18.6 End stage renal disease; I25.5 Ischemic cardiomyopathy; Z88.5 Allergy status to narcotic agent; E16.2 Hypoglycemia, unspecified; Z91.14 Patient's other noncompliance with medication regimen; Z79.51 Long term (current) use of inhaled steroids; Z88.8 Allergy status to other drugs, medicaments and biological substances; I13.2 Hypertensive heart and chronic kidney disease with heart failure and with stage 5 chronic kidney disease, or end stage renal disease; Z79.82 Long term (current) use of aspirin; J96.01 Acute respiratory failure with hypoxia; N17.9 Acute kidney failure, unspecified; E46 Unspecified protein-calorie malnutrition; Z91.048 Other nonmedicinal substance allergy status; Z79.2 Long term (current) use of antibiotics; Z79.899 Other long term (current) drug therapy; Z51.81 Encounter for therapeutic drug level monitoring; Z91.19 Patient's noncompliance with other medical treatment and regimen; Z91.018 Allergy to other foods; I48.91 Unspecified atrial fibrillation; I50.23 Acute on chronic systolic (congestive) heart failure; F10.10 Alcohol abuse, uncomplicated; E87.1 Hypo-osmolality and hyponatremia; T50.2X5A Adverse effect of carbonic-anhydrase inhibitors, benzothiadiazides and other diuretics, initial encounter; R58 Hemorrhage, not elsewhere classified; E86.0 Dehydration; Z88.1 Allergy status to other antibiotic agents; E03.9 Hypothyroidism, unspecified; L40.9 Psoriasis, unspecified

== ENCOUNTER 2020-02-16 06:08 | Inpatient (IN) ==
--- NOTE | 2020-02-16 06:48 | XRay Report ---
XR hip LT 2V w pelvis CLINICAL HISTORY: pain, fall COMPARISON: None. DISCUSSION: Considerable degenerative change. No evidence for acetabular protrusion. No well-defined fracture or dislocation. There is no evidence for soft tissue swelling. IMPRESSION: Considerable degenerative change. No acute posttraumatic abnormality. ACT 112: Negative or not required by law. The above report was generated using voice recognition software. It may contain grammatical, syntax or spelling errors. Electronically signed by: Kamari Florez M.D. 02/16/2020 6:46 AM
[2020-02-16] MEDS ORDERED: APIXABAN 2.5 MG TAB PO STA (07:05)
[2020-02-16] MEDS ORDERED: LEVOTHYROXINE SODIUM 175 MCG TABLET PO STA (07:05)
[2020-02-16] MEDS ORDERED: AMLODIPINE BESYLATE 5 MG TAB PO ONE (07:05)
[2020-02-16] MEDS ORDERED: FUROSEMIDE 40 MG TAB PO ONE (07:05)
[2020-02-16] MEDS ORDERED: carvediloL 25 MG TAB PO ONE (07:05)
--- NOTE | 2020-02-16 07:17 | Emergency Department Note ---
Impression & Plan Acute pain of left hip, Accidental fall, Ambulatory dysfunction ED Provider Note INFORMANT: [Patient] ED PROVIDER(S): Corby Mcclellan MD CHIEF COMPLAINT: Left hip pain PLAN: Disposition: Admitted Condition: [Good] MEDICAL DECISION MAKING: Patient presented with acute pain in the left hip. Physical examination did not reveal any significant findings other some mild tenderness in the left hemipelvis. X-ray imaging did not reveal any obvious fracture. Significant degenerative changes present. Due to the pain and difficulty ambulating the patient underwent CT imaging of the left hip and hemipelvis. Patient had si gnificant hypertension. She did not take her morning medications. She was given amlodipine 5 mg, Eliquis 2.5 mg, carvedilol 25 mg, Lasix 40 mg, hydralazine 25 mg, and levothyroxine [address] imaging did not reveal any evidence of fracture in the hip or left hemipelvis. The patient had an ambul ation trial attempted however was in significant pain. She has had adverse effects with numerous medications the past. She was given oral Tylenol. The patient was sent for CT imaging of her lumbar spine to evaluate for any potential fracture. This was negative as well. Patient CBC and chemistry panel are unremarkable. Patient lives alone and is not capable of going home at this point due to the discomfort. I discussed further management with her. Based upon insurance she cannot be a direct to inpatient rehab. The patient had a consultation placed with internal medicine. The patient was evaluated by the hospitalist for further management. Triage Nursing notes reviewed and agree them. Vital Signs: reviewed and remarkable for significant hypertension. The patient notes she did not take any of her morning medications. Differential diagnosis: Fracture, subluxation, dislocation, contusion, ligamentous injury, neurovascular, compartment syndrome, rhabdomyolysis, as well as other pathologies. Diagnostics interpreted by me: Imaging studies: X-ray imaging of the left hip negative for acute process. CT imaging of the left hip and lumbar spine negative for fracture or dislocation . Consultation(s): Dr Roberson, [facility] hospitalist service HPI: The patient is a 79 year old female who presents to the Emergency Room with complaints of left hip pain. This started 4 days ago and is persisting. The patient also notes the following associated symptoms, difficulty ambulating. The patient has found no relieving factors. Current pain is rated as moderate with ambulation. Patient unable to quantify. Patient states she has been in good health recently. The fall was accidental. She is anticoagulated on Eliquis. Pt denies any other injury, LOC, headache, fevers, chills, diaphoresis, visual changes, neck pain, chest pain, breathing difficulties, nausea, vomiting, abdominal pain, back pain, melena, hematochezia, urinary symptoms, numbness, weakness, lymphadenopathy, rash, or other complaints. ROS: See above HPI for pertinent positives & negatives. A total of [10] systems reviewed and were otherwise negative. PAST MEDICAL HISTORY:[See Below] hypertension, A. fib, chronic anticoagulation. PAST SURGICAL HISTORY:[See Below] FAMILY HISTORY:[See Below] SOCIAL HISTORY:[See Below] no smoking HOME MEDICATIONS:[See Below] ALLERGIES:[See Below] VITALS:[See Below] PHYSICAL EXAMINATION: GENERAL: Awake, alert, well-appearing, in no distress HENT: Normocephalic, atraumatic. Oropharynx unremarkable. EYES: Normal conjunctiva. Sclera non-icteric. NECK: Inspection normal. Non-tender. Supple. No nuchal rigidity. FROM. No masses. RESPIRATORY: Clear to auscultation. No wheezes. No rales. Normal respiratory effort. CARDIAC: Normal rate. Irregular rhythm. No murmurs. No rubs. Extremities warm and well perfused. Pulses equal. No JVD. GI: Soft, non-distended. No tenderness to palpation. No rebound or guarding. No masses. RECTAL: Deferred. MUSCULOSKELETAL: Atraumatic. Chest examination reveals no tenderness. The back is symmetrical on inspection without obvious abnormality. There is no CVA tenderness to palpation. No joint edema. LOWER EXTREMITIES: Calves are equal size bilaterally and non-tender. No edema. No discoloration. Good range of motion of the left hip. There is tenderness to the left hemipelvis laterally. NEURO: Normal sensorium. No sensory or motor deficits noted. SKIN: No rash or jaundice noted. ED COURSE: [Critical Care:] [None] Corby Mcclellan MD Past Med/Surg History Medical History (Updated 02/16/20 @ 14:59 by Corby Mcclellan MD) Anemia associated with chronic renal failure Asthma Atrial fibrillation Dx 02/2019. On Eliquis. Per Dr. Grimaldo 03/03/19 office note, suspect afib was present for a long time given significant biatrial dilatation. Cardiomyopathy Systolic CHF, EF 25-30% on echo 03/28/19 with global HK. Per cardiology consult 02/14/19, cannot exlude ischemic etiology, but may also be 2/2 prolonged tachycardia. Euvolemic on exam at PAT 09/07/19. Carotid artery stenosis without cerebral infarction < 50% bilateral carotid stenosis per 2018 imaging (*No imaging in our records but this was noted by PCP at 06/2019 office visit) Cognitive impairment Daughter, Linda Dupont, primary specialty foods cook Depression Diabetes diet controlled ESRD (end stage renal disease) on dialysis pt to do dialysis MWF in [place] [facility] but has been refusing to go and according to the daughter she has not been there for about the last 2 weeks. Hypertension Hyponatremia 2/2 SIADH Hypothyroidism Osteopenia Proteinuria Psoriasis Secondary hyperparathyroidism SIADH (syndrome of inappropriate ADH production) Systolic CHF EF 25-30% per 03/2019 echo Surgical History H/O colonoscopy History of dilatation and curettage History of vascular access device RIGHT UPPER CHEST PERMACATH FOR DIALYSIS 04/01/19 S/P arteriovenous (AV) fistula creation Jul 2019 Family History Father Heart disease Mother Diabetes Heart disease Hypertension Daughter Breast cancer Brother Hypertension Grandmother (Maternal) Family hx of colon cancer Denies family history of Ovarian cancer Colorectal cancer Colonic polyp Social History Smoking Status: Former smoker Second Hand Exposure: Yes (hx - family and spouse); Hx Alcohol Use: No Hx Substance Use: No Preferred Language: Finnish Communication Ability: Effective Paper Cone Grader Required: No Beliefs That Will Affect Care: None marital status: Single Current Living Situation: Alone 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 Feels Safe at Home: Yes Allergies Allergies Allergy/AdvReac Type Severity Reaction Status Date / Time doxycycline Allergy Unknown Hives Verified 02/16/20 06:38 labetalol Allergy Unknown tired and Verified 02/16/20 06:38 depressed lorazepam Allergy Unknown "SQUIRRELLY Verified 02/16/20 06:38 " Pork/Porcine Containing Allergy Unknown tired and Verified 02/16/20 06:38 Products depression tetracycline Allergy Unknown unknown(not Verified 02/16/20 06:38 100% sure if she's allergic to it) tramadol AdvReac Unknown dizzy, Verified 02/16/20 06:38 emesis Home Meds Home Medications Medication Instructions Recorded Confirmed aspirin 81 mg PO DAILY 07/14/19 02/16/20 furosemide 40 mg PO DAILY 09/07/19 02/16/20 amlodipine 5 mg PO DAILY 02/16/20 02/16/20 ranitidine HCl 150 mg PO DAILY 02/16/20 02/16/20 sevelamer carbonate 800 mg PO TIDM 02/16/20 02/16/20 Previous Rx's Medication Instructions Recorded hydralazine 25 mg tablet 25 mg PO TID #90 tab 01/28/19 folic acid 1 mg PO QAM #30 tab 04/06/19 apixaban 2.5 mg tablet 2.5 mg PO BID #60 tab 05/23/19 sodium bicarbonate 650 mg tablet 650 mg PO BID #180 tab 05/30/19 fluticasone furoate 200 1 puffs INH DAILY #60 ea 06/06/19 mcg-vilanterol 25 mcg/dose inhalation powder betamethasone valerate 0.1 % 1 appln TOP BID #45 gm 08/09/19 topical ointment carvedilol 25 mg tablet 25 mg PO BID #60 tab 08/11/19 levothyroxine 175 mcg tablet 175 mcg PO DAILY #90 tab 09/09/19 Results & Data (ED) Vital Signs Vital Signs - 24 hr 02/16/20 06:15 02/16/20 08:04 02/16/20 09:49 Temperature 36.9 C Temperature Source Oral Pulse Rate 65 Pulse Rate [Left Finger] 76 78 Pulse Rhythm Irregular Pulse Rhythm [Left Finger] Pulse Strength [Left Finger] Respiratory Rate 14 20 20 Respiratory Effort / Characteristics Non-Labored Spontaneous Non-Labored Spontaneous Non-Labored Spontaneous Respiratory Depth Normal Normal Normal Respiratory Pattern Regular Blood Pressure 210/150 H Blood Pressure [Left Arm] 170/101 H 178/98 H Blood Pressure Mean 170 Blood Pressure Mean [Left Arm] 124 124 Blood Pressure Position [Left Arm] Pulse Oximetry 98 96 97 Oxygen Delivery Method Room Air Room Air Room Air Sepsis Recent Fever Within 48 Hours No Sepsis New/Unexplained Change in Mental Status No Sepsis Action Taken by Nursing No Action Required 02/16/20 11:34 02/16/20 12:59 02/16/20 14:17 Temperature Temperature Source Pulse Rate Pulse Rate [Left Finger] 87 69 80 Pulse Rhythm Pulse Rhythm [Left Finger] Regular Regular Regular Pulse Strength [Left Finger] Normal Normal Respiratory Rate 18 20 18 Respiratory Effort / Characteristics Non-Labored Spontaneous Non-Labored Non-Labored Spontaneous Respiratory Depth Normal Normal Normal Respiratory Pattern Blood Pressure Blood Pressure [Left Arm] 189/121 H 203/115 H Blood Pressure Mean Blood Pressure Mean [Left Arm] 143 144 Blood Pressure Position [Left Arm] Lying Lying Pulse Oximetry 100 97 98 Oxygen Delivery Method Room Air Room Air Room Air Sepsis Recent Fever Within 48 Hours Sepsis New/Unexplained Change in Mental Status Sepsis Action Taken by Nursing Laboratory Data Result diagrams: 02/16/20 10:05 02/16/20 10:05 Lab Results 02/16/20 02/16/20 Range/Units 10:05 10:05 WBC 6.85 (4.8-10.8) K/uL RBC 3.85 L (4.2-5.4) M/uL Hgb 12.3 (12.0-16.0) g/dL Hct 37.0 (37-47) % MCV 96.1 (80-100) fL MCH 31.9 (25-34) pg MCHC 33.2 (32-36) g/dL RDW Std Deviation 49.8 H (36.4-46.3) fL RDW Coeff of Carlo 14.1 (11.5-14.5) % Plt Count 170 (130-400) K/uL MPV 11.0 H (7.4-10.4) fL Immature Gran % (Auto) 0.1 % Neut % (Auto) 73.8 % Lymph % (Auto) 13.1 % [place] % (Auto) 8.2 % Eos % (Auto) 4.5 % Baso % (Auto) 0.3 % Neut # (Auto) 5.05 (1.4-6.5) K/uL Lymph # (Auto) 0.90 L (1.2-3.4) K/uL [place] # (Auto) 0.56 (0.11-0.59) K/uL Eos # (Auto) 0.31 (0-0.5) K/uL Baso # (Auto) 0.02 (0-0.2) K/uL Immature Gran # (Auto) 0.01 (0.00-0.02) K/uL Sodium 137 (136-145) mmol/L Potassium 4.3 (3.5-5.1) mmol/L Chloride 107 (98-107) mmol/L Carbon Dioxide 22 (21-32) mmol/L Anion Gap 8.0 (3-11) BUN 54 H (7-18) mg/dl Creatinine 2.93 H (0.6-1.2) mg/dl Est Cr Clr Drug Dosing 13.7 ml/min Est GFR ( Amer) 17.0 Est GFR (Non-Af Amer) 14.7 BUN/Creatinine Ratio 18.3 (10-20) Glucose 91 (70-99) mg/dl Calcium 8.3 L (8.5-10.1) mg/dl Total Bilirubin 0.9 (0.2-1) mg/dl AST 16 (15-37) U/L ALT 11 L (12-78) U/L Alkaline Phosphatase 103 (45-117) U/L Total Protein 7.1 (6.4-8.2) gm/dl Albumin 3.3 L (3.4-5.0) gm/dl Globulin 3.8 (2.5-4.0) gm/dl Albumin/Globulin Ratio 0.9 (0.9-2) Administered Medications Discontinued Medications Acetaminophen (Acetaminophen 500 Mg Tab) 1,000 mg PO NOW STA Stop: 02/16/20 09:52 Last Admin: 02/16/20 10:06 Dose: 1,000 mg Documented by: [id number] Amlodipine Besylate (Amlodipine Besylate 5 Mg Tab) 5 mg PO NOW ONE Stop: 02/16/20 07:06 Last Admin: 02/16/20 07:25 Dose: 5 mg Documented by: [id number] Apixaban (Apixaban 2.5 Mg Tab) 2.5 mg PO NOW STA Stop: 02/16/20 07:06 Last Admin: 02/16/20 07:26 Dose: 2.5 mg Documented by: [id number] Carvedilol (Carvedilol 25 Mg Tab) 25 mg PO NOW ONE Stop: 02/16/20 07:06 Last Admin: 02/16/20 07:26 Dose: 25 mg Documented by: [id number] Furosemide (Furosemide 40 Mg Tab) 40 mg PO NOW ONE Stop: 02/16/20 07:06 Last Admin: 02/16/20 07:25 Dose: 40 mg Documented by: [id number] Hydralazine HCl (Hydralazine Hcl 25 Mg Tab) 25 mg PO NOW STA Stop: 02/16/20 07:06 Last Admin: 02/16/20 07:26 Dose: 25 mg Documented by: [id number] Levothyroxine Sodium (Levothyroxine Sodium 175 Mcg Tablet) 175 mcg PO NOW STA Stop: 02/16/20 07:06 Last Admin: 02/16/20 07:26 Dose: 175 mcg Documented by: [id number] Discharge Plan Visit Data Chief Complaint: Hip Pain Stated Complaint: HIP PAIN ED Provider: Corby Mcclellan Discharge Problem: Acute pain of left hip, Accidental fall, Ambulatory dysfunction Forms Stand Alone Forms: [facility] Prescriptions Prescriptions: No Action hydralazine 25 mg tablet 25 mg PO TID Qty: 90 RF: 11 Eliquis 2.5 mg tablet 2.5 mg PO BID Qty: 60 RF: 5 sodium bicarbonate 650 mg tablet 650 mg PO BID Qty: 180 RF: 3 Breo Ellipta 200-25 mcg/dose blister with device 1 puffs INH DAILY Qty: 60 RF: 0 levothyroxine 175 mcg tablet 175 mcg PO DAILY Qty: 90 RF: 3 carvedilol 25 mg tablet 25 mg PO BID Qty: 60 RF: 5 betamethasone valerate 0.1 % ointment 1 appln TOP BID Qty: 45 RF: 1 aspirin 81 mg tablet,delayed release (DR/EC) 81 mg PO DAILY RF: 0 sevelamer carbonate 800 mg tablet 800 mg PO TIDM RF: 0 amlodipine 5 mg tablet 5 mg PO DAILY RF: 0 ranitidine HCl 150 mg Tablet 150 mg PO DAILY RF: 0 folic acid 1 mg Tablet 1 mg PO QAM Qty: 30 RF: 0 furosemide 40 mg Tablet 40 mg PO DAILY RF: 0
--- NOTE | 2020-02-16 08:53 | CT Scan Report ---
CT SCAN OF THE LEFT HIP WITHOUT IV CONTRAST CLINICAL HISTORY: Fall. Left hip pain. COMPARISON STUDY: Pelvic CT dated 02/13/2019. Radiographs of the left hip dated 02/16/2020. TECHNIQUE: CT scan of the left hip is performed from the bony pelvis to the femoral shaft. Images are reviewed in the axial, sagittal, and coronal planes. IV contrast was not administered for this exami nation. A dose lowering technique was utilized adhering to the principles of ALARA. CT DOSE: 150.99 mGy.cm FINDINGS: The skeletal structures are osteopenic. There is no evidence of left hip fracture. The prox imal femora and the visualized left hemipelvis appear intact. There is no evidence of avascular necro sis of the femoral head. No lytic or blastic lesion is seen. Mild degenerative joint space narrowing is noted in the hip. There is no joint effusion. The overlying musculature is atrophic. Atherosclerot ic calcification is noted in the left iliac and common femoral arteries. There is no left pelvic side wall or inguinal adenopathy. The partially imaged bladder is normal in appearance. IMPRESSION: There is no evidence of left hip fracture. ACT 112: Negative or not required by law. Dictated: 02/16/2020 7:51 AM Transcribed: 02/16/2020 8:43 AM Sandy [id number] [email or web address] Electronically signed by: Luke Metzger M.D. 02/16/2020 8:52 AM
[2020-02-16] MEDS ORDERED: ACETAMINOPHEN 500 MG TAB PO STA (09:51)
[2020-02-16 10:17] LABS: Basophils # (auto) 0.02 K/uL (0-0.2); Basophils % (auto) 0.3 %; Eosinophils # (auto) 0.31 K/uL (0-0.5); Eosinophils % (auto) 4.5 %; Hemoglobin 12.3 g/dL (12.0-16.0); Immature Granulocytes # (auto) 0.01 K/uL (0.00-0.02); Immature Granulocytes % (auto) 0.1 %; Lymphocytes % (auto) 13.1 %; Mean Corpuscular Hemoglobin 31.9 pg (25-34); Mean Corpuscular Hgb Conc 33.2 g/dL (32-36); Mean Corpuscular Volume 96.1 fL (80-100); Monocytes # (auto) 0.56 K/uL (0.11-0.59); Monocytes % (auto) 8.2 %; Neutrophils # (auto) 5.05 K/uL (1.4-6.5); Neutrophils % (auto) 73.8 %; Platelet Count 170 K/uL (130-400); RDW Coefficient of Variation 14.1 % (11.5-14.5); RDW Standard Deviation 49.8 fL (36.4-46.3); Red Blood Count 3.85 M/uL (4.2-5.4); White Blood Count 6.85 K/uL (4.8-10.8)
[2020-02-16 10:35] LABS: Albumin Level 3.3 gm/dl (3.4-5.0); BUN Creatinine Ratio 18.3 (10-20); Calcium 8.3 mg/dl (8.5-10.1); Creatinine Clr Calc Pharmacy 13.7 ml/min; Est GFR (Non-African American) 14.7; Potassium 4.3 mmol/L (3.5-5.1)
[2020-02-16 10:38] LABS: Albumin Globulin Ratio 0.9 (0.9-2); Bilirubin,Total 0.9 mg/dl (0.2-1); Globulin 3.8 gm/dl (2.5-4.0); Total Protein 7.1 gm/dl (6.4-8.2)
--- NOTE | 2020-02-16 11:30 | CT Scan Report ---
CT SCAN OF THE LUMBAR SPINE WITHOUT IV CONTRAST CLINICAL HISTORY: Fall. Low back pain. COMPARISON STUDY: Abdominal CT dated 02/13/2019. TECHNIQUE: CT scan of the lumbar spine is performed from the lower thoracic spine to sacrum. Images a re reviewed in the axial, sagittal, and coronal planes. IV contrast was not administered for this exa mination. A dose lowering technique was utilized adhering to the principles of ALARA. CT DOSE: 600.65 mGy.cm FINDINGS: The skeletal structures are osteopenic. There is a moderate chronic superior endplate compr ession deformity of T12. There is no evidence of fracture or malalignment involving the lumbar spine. Vertebral body height is maintained. There is minimal anterolisthesis at L3-L4. Alignment is otherwi se preserved. Small anterior and lateral marginal osteophytes are seen throughout. The transverse and spinous processes are intact. There is no spondylolysis. No lytic or blastic lesion is seen. Moderat e disc space narrowing is seen at T12-L1 and L1-L2. Mild disc space narrowing is noted at L5-S1. Post erior disc bulges are noted at several lumbar levels. There is likely central canal stenosis at L3-L4 and L4-L5. The visualized sacrum and bony pelvis appear intact. Advanced atherosclerotic calcificati on is noted in the abdominal aorta. There is fatty atrophy of the paraspinous musculature. Asymmetric cortical atrophy is noted in the right kidney as compared to the left. IMPRESSION: 1. There is no evidence of fracture or malalignment involving the lumbar spine. 2. Osteopenia and spondylotic change as above. ACT 112: Negative or not required by law. Dictated: 02/16/2020 10:55 AM Transcribed: 02/16/2020 11:04 AM Trudy [id number] [email or web address] Electronically signed by: Luke Metzger M.D. 02/16/2020 11:29 AM
--- NOTE | 2020-02-16 14:36 | History & Physical Report ---
Date of Service February 16, 2020 Assessment & Plan (1) Accidental fall: Patient reportedly with an accidental fall at home she is having increased pain and difficulty ambulating. Imaging in the ER including CT scan lumbar spine and hip do not show any acute fractures. Patient likely will benefit from evaluation for rehabilitation stay. Pain control will be via scheduled Tylenol and oral opiates with topical pain relief as needed PT OT evaluation will be forthcoming (2) HFrEF (heart failure with reduced ejection fraction): Ejection fraction in the 30 to 35% range, continue on carvedilol 25 twice daily, amlodipine 5, Lasix 40 mg, hydralazine 25 3 times daily (3) Atrial fibrillation: Patient is rate controlled with carvedilol and anticoagulated with apixaban renal dose adjusted 2.5 twice daily (4) Diabetes: Patient agrees that she is diabetic but does not take medications are particularly have dietary modification will check an A1c in the morning (5) ESRD (end stage renal disease) on dialysis: Patient previously on hemodialysis he says she is now off dialysis but with sevelamer continuing 3 times daily along with sodium bicarbonate twice daily, will have nephrology comment on the need for these medications on a continual basis or not (6) Subclavian artery stenosis: (7) Carotid artery stenosis without cerebral infarction: (8) Depression: (9) Hypothyroidism: History of Present Illness Primary Care Provider: Enzo Carrington MD The patient is a 79 year old female who presents to the Emergency Room with complaints of left hip pain After a fall at home. This started 4 days ago and is persisting. The patient c/o difficulty ambulating. Patient is rather vague about her discomfort and pain is mostly at the left anterior stability iliac spine area she says she cannot walk about her home with her walker because of this discomfort. Is only had modest pain relief in the ER. Current pain is rated as moderate with ambulation. Patient unable to quantify. Patient states she has been in good health recently. The fall was accidental. She is anticoagulated on Eliquis. Pt denies any other injury, LOC, headache, fevers, chills, diaphoresis, visual changes, neck pain, chest pain, breathing difficulties, nausea, vomiting, abdominal pain, back pain, melena, hematochezia, urinary symptoms, numbness, weakness, lymphadenopathy, rash, or other complaints. Allergies Allergy/AdvReac Type Severity Reaction Status Date / Time doxycycline Allergy Unknown Hives Verified 02/16/20 06:38 labetalol Allergy Unknown tired and Verified 02/16/20 06:38 depressed lorazepam Allergy Unknown "SQUIRRELLY Verified 02/16/20 06:38 " Pork/Porcine Containing Allergy Unknown tired and Verified 02/16/20 06:38 Products depression tetracycline Allergy Unknown unknown(not Verified 02/16/20 06:38 100% sure if she's allergic to it) tramadol AdvReac Unknown dizzy, Verified 02/16/20 06:38 emesis Home Medications Home Medications Medication Instructions Recorded Confirmed Type hydralazine 25 mg tablet 25 mg PO TID #90 tab 01/28/19 02/16/20 Rx folic acid 1 mg PO QAM #30 tab 04/06/19 02/16/20 Rx apixaban 2.5 mg tablet 2.5 mg PO BID #60 tab 05/23/19 02/16/20 Rx sodium bicarbonate 650 mg tablet 650 mg PO BID #180 tab 05/30/19 02/16/20 Rx fluticasone furoate 200 1 puffs INH DAILY #60 ea 06/06/19 02/16/20 Rx mcg-vilanterol 25 mcg/dose inhalation powder aspirin 81 mg PO DAILY 07/14/19 02/16/20 History betamethasone valerate 0.1 % 1 appln TOP BID #45 gm 08/09/19 02/16/20 Rx topical ointment carvedilol 25 mg tablet 25 mg PO BID #60 tab 08/11/19 02/16/20 Rx furosemide 40 mg PO DAILY 09/07/19 02/16/20 History levothyroxine 175 mcg tablet 175 mcg PO DAILY #90 tab 09/09/19 02/16/20 Rx amlodipine 5 mg PO DAILY 02/16/20 02/16/20 History ranitidine HCl 150 mg PO DAILY 02/16/20 02/16/20 History sevelamer carbonate 800 mg PO TIDM 02/16/20 02/16/20 History Past Med/Surg History Medical History (Updated 02/16/20 @ 14:59 by Corby Mcclellan MD) Anemia associated with chronic renal failure Asthma Atrial fibrillation Dx 02/2019. On Eliquis. Per Dr. Grimaldo 03/03/19 office note, suspect afib was present for a long time given significant biatrial dilatation. Cardiomyopathy Systolic CHF, EF 25-30% on echo 03/28/19 with global HK. Per cardiology consult 02/14/19, cannot exlude ischemic etiology, but may also be 2/2 prolonged tachycardia. Euvolemic on exam at PAT 09/07/19. Carotid artery stenosis without cerebral infarction < 50% bilateral carotid stenosis per 2018 imaging (*No imaging in our records but this was noted by PCP at 06/2019 office visit) Cognitive impairment Daughter, Linda Dupont, primary chief nurse Depression Diabetes diet controlled ESRD (end stage renal disease) on dialysis pt to do dialysis MWF in [facility] but has been refusing to go and according to the daughter she has not been there for about the last 2 weeks. Hypertension Hyponatremia 2/2 SIADH Hypothyroidism Osteopenia Proteinuria Psoriasis Secondary hyperparathyroidism SIADH (syndrome of inappropriate ADH production) Systolic CHF EF 25-30% per 03/2019 echo Surgical History H/O colonoscopy History of dilatation and curettage History of vascular access device RIGHT UPPER CHEST PERMACATH FOR DIALYSIS 04/01/19 S/P arteriovenous (AV) fistula creation Jul 2019 Family History Father Heart disease Mother Diabetes Heart disease Hypertension Daughter Breast cancer Brother Hypertension Grandmother (Maternal) Family hx of colon cancer Denies family history of Ovarian cancer Colorectal cancer Colonic polyp Social History Smoking Status: Former smoker Second Hand Exposure: Yes (hx - family and spouse); Hx Alcohol Use: No Hx Substance Use: No Preferred Language: Frisian Communication Ability: Effective Hub 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 Required: No Beliefs That Will Affect Care: None marital status: Single Current Living Situation: Alone current occupational status: retired current occupation: [employer] Feels Safe at Home: Yes Review of Systems Review of Systems: Mild distress and fatigue no headache, blurry or double vision no speech or swallowing issues no chest pain, pressure or palpitations no shortness of breath, cough or wheezes no abdominal pain, nausea or vomiting, diarrhea or constipation no dysuria, hematuria or frequency no focal joint pain there is no ecchymosis or swelling the pain is mostly reproducible and is not of the greater trochanter but more cephalad near the anterior superior iliac spine. There is no comment of fractures of her pelvic alar wing on any of the imaging studies. no back pain, CVA tenderness or radicular pain no bruising, bleeding or rashes no focal signs of weakness or numbness or altered sensation no complaints or anxiety or depression. Physical Exam Physical Exam: The patient appeared well nourished and normally developed. Vital signs as documented. Head exam is normocephalic atraumatic no scleral icterus Neck is without JVD, thyromegaly, or carotid bruits. Lungs are clear to auscultation, no focal loss of breath sounds Cardiac exam, Rhythm is regular.. No murmurs, rubs or gallops. Abdominal exam reveals normal bowel sounds, soft non tender, no masses Extremities are nonedematous and both pedal pulses are normal. She has reproducible point tenderness to the left anterior superior iliac spine area of without discomfort or decreased mobility to hip flexion extension internal or external rotation Neurologic exam is alert and oriented, no focal loss of strength or sensation Skin is without bruises or rashes Psychologically is without concerns for anxiety or depression Results & Data Results & Data ([facility]) Vital Signs (Past 12 Hours) Vital Signs Temp Pulse Pulse Resp BP BP Pulse Ox 02/16/20 14:17 80 18 203/115 H 98 02/16/20 12:59 69 20 97 02/16/20 11:34 87 18 189/121 H 100 02/16/20 09:49 78 20 178/98 H 97 02/16/20 08:04 76 20 170/101 H 96 02/16/20 06:15 98.4 F 65 14 210/150 H 98 Pelvic x-ray from February 16, 2020 considerable degenerative change no acute posttraumatic abnormality Lumbar spine CT 02/16/2020 no evidence of fracture or malalignment, osteopenia and spondylitic change CT scan hip 02/16/2020 no evidence of acute fracture PG Care Time/CCT Total # of Minutes Spent Total Time Spent with Patient: Total time spent is greater than 50% in coordination of care (as documented) at patient's floor/unit and/or counseling patient: Coding Level of Care Code 57510 Initial Inpt Care Lvl 2 Diagnoses Accidental fall W19.XXXA HFrEF (heart failure with reduced ejection fraction) I50.20 Atrial fibrillation I48.91 Diabetes E11.9 ESRD (end stage renal disease) on dialysis N18.6; Z99.2 Subclavian artery stenosis I77.1 Carotid artery stenosis without cerebral infarction I65.29 Depression F32.9 Hypothyroidism E03.9 Hypothyroidism type: acquired (1) Hypothyroidism Hypothyroidism type: acquired Qualified Code(s): E03.9 - Hypothyroidism, unspecified
[2020-02-16] MEDS ORDERED: MoRPHine SULFATE 2 MG/ML CARP IV PRN (16:39)
[2020-02-16] MEDS ORDERED: POLYETHYLENE (MIRALAX) 17 GM PACK PO PRN (16:39)
[2020-02-16] MEDS ORDERED: MoRPHine SULFATE 4 MG/ML 1 ML CARP\\VIAL IV PRN (16:39)
[2020-02-16] MEDS ORDERED: OXYCODONE HCL IR 5 MG TAB (IMMEDIATE RELEASE) PO PRN (16:39)
[2020-02-16] MEDS ORDERED: ONDANSETRON INJ 2 MG/ML 2 ML VIAL IV PRN (16:39)
[2020-02-16] MEDS ORDERED: MAGNESIUM HYDROXIDE SUSP 30 ML UDC PO PRN (16:39)
[2020-02-16] MEDS ORDERED: ALUMINUM/MAGNESIUM SUSP 30 ML UDC PO PRN (16:39)
[2020-02-16] MEDS ORDERED: HydrALAZINE HCL 20 MG/ML VIAL IV PRN (16:39)
[2020-02-16] MEDS: SEVELAMER HCL 800 MG TABLET PO SCH (17:38)
[2020-02-16] MEDS: APIXABAN 2.5 MG TAB PO SCH (20:35)
[2020-02-16] MEDS: ACETAMINOPHEN 500 MG TAB PO SCH (20:36)
[2020-02-16] MEDS: carvediloL 25 MG TAB PO SCH (20:36)
[2020-02-16] MEDS: SODIUM BICARBONATE 650 MG TAB PO SCH (20:36)
[2020-02-16] MEDS: BETAMETHASONE VAL 0.1% CR 15 GM EXT SCH (20:39)
[2020-02-17] MEDS: LEVOTHYROXINE SODIUM 175 MCG TABLET PO SCH (05:56)
[2020-02-17 07:07] LABS: BUN Creatinine Ratio 17.4 (10-20); Calcium 8.4 mg/dl (8.5-10.1); Creatinine Clr Calc Pharmacy 13.5 ml/min; Est GFR (African American) 15.7; Est GFR (Non-African American) 13.5; Potassium 4.3 mmol/L (3.5-5.1)
--- NOTE | 2020-02-17 07:38 | Hospitalist Progress Note ---
Date of Service February 17, 2020 Assessment & Plan (1) Accidental fall: Patient reportedly with an accidental fall at home she was having increased pain and difficulty ambulating. Imaging in the ER including CT scan lumbar spine and hip do not show any acute fractures. Focal pain is improved but ambulation difficulties continue to be persistent. Patient likely will benefit from evaluation for rehabilitation stay. Pain control will be via scheduled Tylenol and oral opiates with topical pain relief PT OT evaluation (2) HFrEF (heart failure with reduced ejection fraction): Ejection fraction in the 30 to 35% range, continue on carvedilol 25 twice daily, amlodipine 5, Lasix 40 mg, hydralazine 25 3 times daily (3) Atrial fibrillation: Patient is rate controlled with carvedilol and anticoagulated with apixaban renal dose adjusted 2.5 twice daily (4) Diabetes: Patient agrees that she is diabetic but does not take medications are particularly have dietary modification will check an A1c in the morning (5) ESRD (end stage renal disease) on dialysis: Patient previously on hemodialysis he says she is now off dialysis but with sevelamer continuing 3 times daily along with sodium bicarbonate twice daily, Neurology is seen today they request no additional medication changes and are satisfied with her creatinine being in 3 range (6) Subclavian artery stenosis: (7) Carotid artery stenosis without cerebral infarction: (8) Depression: (9) Hypothyroidism: Admission and Anticipated Discharge Date Admission Date: February 16, 2020 Subjective Patient says she feels improved she is less hip pain however she is ambulating with difficulty according to nursing staff awaiting PT OT evaluation Review of Systems Review of Systems: Mild distress and fatigue no headache, blurry or double vision no speech or swallowing issues no chest pain, pressure or palpitations no shortness of breath, cough or wheezes no abdominal pain, nausea or vomiting, diarrhea or constipation no dysuria, hematuria or frequency Very minor left anterior pelvic pain no specific joint pain no back pain, CVA tenderness or radicular pain no bruising, bleeding or rashes no focal signs of weakness or numbness or altered sensation overall weak and having difficulty ambulating no complaints or anxiety or depression. Physical Exam Physical Exam: The patient appeared well nourished and normally developed. Vital signs as documented. Head exam is normocephalic atraumatic no scleral icterus Neck is without JVD, thyromegaly, or carotid bruits. Lungs are clear to auscultation, no focal loss of breath sounds Cardiac exam, Rhythm is regular.. No murmurs, rubs or gallops. Abdominal exam reveals normal bowel sounds, soft non tender, no masses Extremities are nonedematous and both pedal pulses are normal Patient has good range of motion of her hip but still has focal tenderness in the left pelvic wing Neurologic exam is alert and oriented, no focal loss of strength or sensation Skin is without bruises or rashes Psychologically is without concerns for anxiety or depression Results & Data Results & Data ([facility]) Vital Signs (Past 12 Hours) Vital Signs Temp Pulse Pulse Resp BP Pulse Ox 02/16/20 23:42 98.2 F 71 16 155/79 H 96 02/16/20 20:32 75 170/98 H PG Care Time/CCT Total # of Minutes Spent Total Time Spent with Patient: Total time spent is greater than 50% in coordination of care (as documented) at patient's floor/unit and/or counseling patient: Coding Level of Care Code 59228 Subseq Hosp Care Lvl 2 Diagnoses Accidental fall W19.XXXA HFrEF (heart failure with reduced ejection fraction) I50.20 Atrial fibrillation I48.91 Diabetes E11.9 ESRD (end stage renal disease) on dialysis N18.6; Z99.2 Subclavian artery stenosis I77.1 Carotid artery stenosis without cerebral infarction I65.29 Depression F32.9 Hypothyroidism E03.9 Hypothyroidism type: acquired (1) Hypothyroidism Hypothyroidism type: acquired Qualified Code(s): E03.9 - Hypothyroidism, unspecified
[2020-02-17 08:37] LABS: Estimated Average Glucose 97 mg/dl
[2020-02-17] MEDS: APIXABAN 2.5 MG TAB PO SCH ×2 (09:26→20:04)
[2020-02-17] MEDS: FAMOTIDINE 20 MG TAB PO SCH (09:26)
[2020-02-17] MEDS: SODIUM BICARBONATE 650 MG TAB PO SCH ×2 (09:26→20:04)
[2020-02-17] MEDS: SEVELAMER HCL 800 MG TABLET PO SCH ×3 (09:26→19:18)
[2020-02-17] MEDS: ACETAMINOPHEN 500 MG TAB PO SCH ×3 (09:27→20:03)
[2020-02-17] MEDS: carvediloL 25 MG TAB PO SCH ×2 (09:27→20:03)
[2020-02-17] MEDS: AMLODIPINE BESYLATE 5 MG TAB PO SCH (09:28)
[2020-02-17] MEDS: FOLIC ACID 1 MG TAB PO SCH (09:28)
[2020-02-17] MEDS: ASPIRIN 81 MG ECTAB PO SCH (09:28)
[2020-02-17] MEDS: FUROSEMIDE 40 MG TAB PO SCH (09:29)
[2020-02-17] MEDS: FLUTICASONE/VILANTEROL 200/25MCG 14 PUFFS/INHALER INH SCH (09:30)
[2020-02-17] MEDS: BETAMETHASONE VAL 0.1% CR 15 GM EXT SCH ×2 (09:31→20:04)
[2020-02-17] MEDS: LIDOCAINE 5% 1 PATCH TD SCH (09:31)
--- NOTE | 2020-02-17 12:45 | Nephrology Consultation ---
Date of Consultation February 17, 2020 Assessment & Plan (1) CKD (chronic kidney disease): chronic kidney disease with a chronically atrophic right kidney underlying diabetic kidney disease as well as vascular disease. Patient has a pet patent left renal artery per history. Since she stopped dialysis has done reasonably well. Her creatinine remains fairly stable approximately 3 milligrams/deciliter. Her electrolytes are controlled. She has had mild chronic anemia but not required JEIMY therapy. Her volume status is euvolemic. She is making urine. Her medications are appropriately dosed for kidney function. There is no emergent indication to restart dialysis at this time. She is taking sevelamer for hyperphosphatemia. Even if she were to require dialysis would not be able to place a PermCath at the hospital at this time. I discussed with the patient that I do not think any additional intervention is required from the Nephrology standpoint at this time. She stated that she would be interested in restarting dialysis if needed. I suggest that we arrange close outpatient follow-up in the nephrology clinic. If she remains in the hospital please monitor her metabolic profile daily. However, at this time I think outpatient follow-up would be acceptable. (2) HFrEF (heart failure with reduced ejection fraction): (3) Anemia associated with chronic renal failure: History of Present Illness Reason for Consultation: CKD Requesting Physician: Tab Arguelles MD Attending Physician: Tab Arguelles MD History of Present Illness Therese Figueroa is a 79-year-old female with chronic kidney disease. Medical history is also notable for DM, atrial fibrillation, chronic systolic congestive heart failure, coronary artery disease, and documented history of SIADH. She was admitted to the hospital status post fall with intractable hip pain. This has been controlled. She has a chronically atrophic right kidney. Prior renal vascular studies demonstrated patent left renal artery. Patient was started on hemodialysis during admission to the hospital in March of 2019. at that time due to the baseline advanced nature of her kidney dysfunction is felt she progressed end-stage kidney disease. She was maintained on hemodialysis until November of 2019. Nga did undergo placement as well as transposition of the basilic AV fistula by Dr. Walker. unfortunately this failed. She had a tunneled dialysis catheter which was removed in November after she stopped dialysis. Therese states that she has done very well since she stopped dialysis. She has not had issues with fluid retention. Her activity tolerance is stable. Her appetite is good. She is not opposed to restarting dialysis if needed. However, she states that she felt worse when she was on dialysis than she does now off of dialysis. Overall, at that time of my assessment, she felt well and had no complaints. Allergies Allergy/AdvReac Type Severity Reaction Status Date / Time doxycycline Allergy Unknown Hives Verified 02/16/20 06:38 labetalol Allergy Unknown tired and Verified 02/16/20 06:38 depressed lorazepam Allergy Unknown "SQUIRRELLY Verified 02/16/20 06:38 " Pork/Porcine Containing Allergy Unknown tired and Verified 02/16/20 06:38 Products depression tetracycline Allergy Unknown unknown(not Verified 02/16/20 06:38 100% sure if she's allergic to it) tramadol AdvReac Unknown dizzy, Verified 02/16/20 06:38 emesis Home Medications Home Medications Medication Instructions Recorded Confirmed Type hydralazine 25 mg tablet 25 mg PO TID #90 tab 01/28/19 02/16/20 Rx folic acid 1 mg PO QAM #30 tab 04/06/19 02/16/20 Rx apixaban 2.5 mg tablet 2.5 mg PO BID #60 tab 05/23/19 02/16/20 Rx sodium bicarbonate 650 mg tablet 650 mg PO BID #180 tab 05/30/19 02/16/20 Rx fluticasone furoate 200 1 puffs INH DAILY #60 ea 06/06/19 02/16/20 Rx mcg-vilanterol 25 mcg/dose inhalation powder aspirin 81 mg PO DAILY 07/14/19 02/16/20 History betamethasone valerate 0.1 % 1 appln TOP BID #45 gm 08/09/19 02/16/20 Rx topical ointment carvedilol 25 mg tablet 25 mg PO BID #60 tab 08/11/19 02/16/20 Rx furosemide 40 mg PO DAILY 09/07/19 02/16/20 History levothyroxine 175 mcg tablet 175 mcg PO DAILY #90 tab 09/09/19 02/16/20 Rx amlodipine 5 mg PO DAILY 02/16/20 02/16/20 History ranitidine HCl 150 mg PO DAILY 02/16/20 02/16/20 History sevelamer carbonate 800 mg PO TIDM 02/16/20 02/16/20 History Patient History Medical History Anemia associated with chronic renal failure Asthma Atrial fibrillation Dx 02/2019. On Eliquis. Per Dr. Grimaldo 03/03/19 office note, suspect afib was present for a long time given significant biatrial dilatation. Cardiomyopathy Systolic CHF, EF 25-30% on echo 03/28/19 with global HK. Per cardiology c onsult 02/14/19, cannot exlude ischemic etiology, but may also be 2/2 prolonged tachycardia. Euvolemic on exam at PAT 09/07/19. Carotid artery stenosis without cerebral infarction < 50% bilateral carotid stenosis per 2018 imaging (*No imaging in our records but this was noted by PCP at 06/2019 office visit) Cognitive impairment Daughter, Linda Dupont, primary direct customer service representative Depression Diabetes diet controlled ESRD (end stage renal disease) on dialysis pt to do dialysis MWF in [facility] but has been refusing to go and according to the daughter she has not been there for about the last 2 weeks. Hypertension Hyponatremia 2/2 SIADH Hypothyroidism Osteopenia Proteinuria Psoriasis Secondary hyperparathyroidism SIADH (syndrome of inappropriate ADH production) Systolic CHF EF 25-30% per 03/2019 echo Surgical History H/O colonoscopy History of dilatation and curettage History of vascular access device RIGHT UPPER CHEST PERMACATH FOR DIALYSIS 04/01/19 S/P arteriovenous (AV) fistula creation Jul 2019 Family History Father Heart disease Mother Diabetes Heart disease Hypertension Daughter Breast cancer Brother Hypertension Grandmother (Maternal) Family hx of colon cancer Denies family history of Ovarian cancer Colorectal cancer Colonic polyp Social History Smoking Status: Never smoker Second Hand Exposure: Yes (hx - family and spouse); Hx Alcohol Use: No Hx Substance Use: No Preferred Language: Norwegian Communication Ability: Effective Rpg Programmer Required: No Beliefs That Will Affect Care: None marital status: Single Current Living Situation: Alone current occupational status: retired current occupation: [employer] Other Information That Helps Us Care for You: Yes Feels Safe at Home: Yes Safety Concerns: Feels Safe At This Time Review of Systems Constitutional: no weight loss, no weight gain and no problem reported Eyes: no problem reported Ear, Nose, Mouth, Throat: no problem reported Respiratory: no problem reported Cardiovascular: no problem reported Gastrointestinal: no problem reported Musculoskeletal: no problem reported Integumentary: no problem reported Neurologic: no problem reported Psychiatric: no problem reported Endocrine: no problem reported Hematologic / Lymphatic: no problem reported Physical Exam Constitutional: well developed; no acute distress Eyes: no scleral abnormality and no corneal abnormality ENMT: Mouth: no oral mucosal abnormality and oral mucous membranes not dry Neck: normal visual inspection and trachea midline Respiratory: normal respiratory effort Auscultation: lungs clear to auscultation bilaterally Cardiovascular: Rate/Rhythm: regular rate Heart Sounds: normal S1 and normal S2 Extremities: no edema Musculoskeletal: Extremities: no cyanosis and no clubbing Skin: normal turgor; no lesions Neurologic: Motor/Sensory: no tremor and no asterixis Psychiatric: Orientation: alert and oriented x 3 Results & Data ([facility]) Vital Signs (Past 12 Hours) Vital Signs Temp Pulse Resp BP Pulse Ox 02/17/20 07:36 36.6 C 77 16 158/89 H 97 Laboratory Results Laboratory Results - last 24 hr 02/17/20 02/17/20 05:34 05:34 Sodium 136 Potassium 4.3 Chloride 104 Carbon Dioxide 23 Anion Gap 9.0 BUN 55 H Creatinine 3.14 H Est Cr Clr Drug Dosing 13.5 Est GFR ( Amer) 15.7 Est GFR (Non-Af Amer) 13.5 BUN/Creatinine Ratio 17.4 Glucose 77 Estimat Average Glucose 97 Hemoglobin A1c 5.0 Calcium 8.4 L Diagnostic Findings Laboratory Results - last 24 hr 02/17/20 02/17/20 05:34 05:34 Sodium 136 Potassium 4.3 Chloride 104 Carbon Dioxide 23 Anion Gap 9.0 BUN 55 H Creatinine 3.14 H Est Cr Clr Drug Dosing 13.5 Est GFR ( Amer) 15.7 Est GFR (Non-Af Amer) 13.5 BUN/Creatinine Ratio 17.4 Glucose 77 Estimat Average Glucose 97 Hemoglobin A1c 5.0 Calcium 8.4 L PG Care Time/CCT Total # of Minutes Spent Total Time Spent with Patient: Total time spent is greater than 50% in coordination of care (as documented) at patient's floor/unit and/or counseling patient: Coding Level of Care Code 09427 Inpt Consult Level 4 Diagnoses CKD (chronic kidney disease) N18.9 HFrEF (heart failure with reduced ejection fraction) I50.20 Anemia associated with chronic renal failure D63.1
[2020-02-18] MEDS: LEVOTHYROXINE SODIUM 175 MCG TABLET PO SCH (05:44)
[2020-02-18 06:59] LABS: Hematocrit (blood only) 39.2 % (37-47); Mean Corpuscular Hemoglobin 32.3 pg (25-34); Mean Corpuscular Hgb Conc 33.2 g/dL (32-36); Mean Corpuscular Volume 97.5 fL (80-100); Mean Platelet Volume 10.7 fL (7.4-10.4); Platelet Count 198 K/uL (130-400); RDW Coefficient of Variation 14.2 % (11.5-14.5); RDW Standard Deviation 50.2 fL (36.4-46.3); Red Blood Count 4.02 M/uL (4.2-5.4); White Blood Count 5.89 K/uL (4.8-10.8)
[2020-02-18 07:27] LABS: BUN Creatinine Ratio 16.8 (10-20); Calcium 8.6 mg/dl (8.5-10.1); Creatinine Clr Calc Pharmacy 11.5 ml/min; Est GFR (African American) 12.9; Est GFR (Non-African American) 11.2; Potassium 4.4 mmol/L (3.5-5.1)
[2020-02-18] MEDS: LIDOCAINE 5% 1 PATCH TD SCH (08:33)
[2020-02-18] MEDS: FLUTICASONE/VILANTEROL 200/25MCG 14 PUFFS/INHALER INH SCH (08:35)
[2020-02-18] MEDS: FUROSEMIDE 40 MG TAB PO SCH (08:35)
[2020-02-18] MEDS: FOLIC ACID 1 MG TAB PO SCH (08:36)
[2020-02-18] MEDS: SODIUM BICARBONATE 650 MG TAB PO SCH (08:36)
[2020-02-18] MEDS: FAMOTIDINE 20 MG TAB PO SCH (08:36)
[2020-02-18] MEDS: ASPIRIN 81 MG ECTAB PO SCH (08:37)
[2020-02-18] MEDS: carvediloL 25 MG TAB PO SCH (08:37)
[2020-02-18] MEDS: AMLODIPINE BESYLATE 5 MG TAB PO SCH (08:38)
[2020-02-18] MEDS: APIXABAN 2.5 MG TAB PO SCH (08:38)
[2020-02-18] MEDS: ACETAMINOPHEN 500 MG TAB PO SCH (08:38)
[2020-02-18] MEDS: SEVELAMER HCL 800 MG TABLET PO SCH (08:39)
[2020-02-18] MEDS: BETAMETHASONE VAL 0.1% CR 15 GM EXT SCH (08:42)
--- NOTE | 2020-02-18 10:39 | Nephrology Progress Note ---
Date of Service February 18, 2020 Assessment & Plan (1) CKD (chronic kidney disease): * Creatinine is slowly trending up but patient remains euvolemic and electrolytes are acceptable. She is nonoliguric * Discussed IHD. Patient reports that she is asymptomatic but is agreeable to Nephrology follow up after discharge from the hospital * Recommend follow up w/ Dr. Parikh ([facility]) within 7 - 10 days of hospital discharge [phone] (2) HFrEF (heart failure with reduced ejection fraction): (3) Anemia associated with chronic renal failure: Admission and Anticipated Discharge Date Admission Date: February 16, 2020 Subjective Ms. Figueroa was seen & examined in her hospital room this morning. She states that she fell while picking up her glasses from the floor. Her hip discomfort is improving. She feels comfortable returning home with the use of a walker. Ms. Figueroa reports that she stopped IHD 11/22 and has been doing well without treatment. She denies angina, dyspnea or uremic symptoms Review of Systems Constitutional: no fever Eyes: no problem reported Ear, Nose, Mouth, Throat: no problem reported Respiratory: no cough and no dyspnea Cardiovascular: no chest pain and no edema Gastrointestinal: no abdominal pain, no nausea and no vomiting Genitourinary: no dysuria and no hematuria Musculoskeletal: no back pain Integumentary: no rash Neurologic: no dizziness Physical Exam Constitutional: + frail appearing Eyes: PERRL, conjunctivae normal, anicteric sclerae ENMT: external ear and nose normal, oropharynx normal Neck: trachea midline, no thyromegaly Respiratory: normal respiratory effort, lungs clear to auscultation Cardiovascular: RRR, no murmur, no edema (no pericardial rub) Gastrointestinal (Abdomen): normal bowel sounds, soft, nontender, no hepatosplenomegaly Musculoskeletal: Extremities: no cyanosis (no edema) Skin: no rashes, warm and dry Neurologic: awake; not confused Results & Data ([facility]) Vital Signs (Past 12 Hours) Vital Signs Temp Pulse Pulse Pulse Resp BP Pulse Ox 02/18/20 09:47 36.9 C 72 72 71 18 146/83 H 94 02/18/20 07:10 36.9 C 71 18 146/83 H 94 02/17/20 23:00 36.7 C 72 20 160/93 H 96 Laboratory Results Laboratory Tests 02/18/20 02/18/20 06:27 06:27 WBC 5.89 Hgb 13.0 Hct 39.2 Plt Count 198 Sodium 137 Potassium 4.4 Chloride 105 Carbon Dioxide 23 BUN 62 H Creatinine 3.68 H D Glucose 81 PG Care Time/CCT Total # of Minutes Spent Total Time Spent with Patient: Total time spent is greater than 50% in coordination of care (as documented) at patient's floor/unit and/or counseling patient: Coding Level of Care Code 62327 Subseq Hosp Care Lvl 1 Diagnoses CKD (chronic kidney disease) N18.9 HFrEF (heart failure with reduced ejection fraction) I50.20 Anemia associated with chronic renal failure D63.1
--- NOTE | 2020-02-18 14:38 | Discharge Summary ---
Date of Service February 18, 2020 Admission HPI Per Admitting Provider The patient is a 79 year old female who presents to the Emergency Room with complaints of left hip pain After a fall at home. This started 4 days ago and is persisting. The patient c/o difficulty ambulating. Patient is rather vague about her discomfort and pain is mostly at the left anterior stability iliac spine area she says she cannot walk about her home with her walker because of this discomfort. Is only had modest pain relief in the ER. Current pain is rated as moderate with ambulation. Patient unable to quantify. Patient states she has been in good health recently. The fall was accidental. She is anticoagulated on Eliquis. Pt denies any other injury, LOC, headache, fevers, chills, diaphoresis, visual changes, neck pain, chest pain, breathing difficulties, nausea, vomiting, abdominal pain, back pain, melena, hematochezia, urinary symptoms, numbness, weakness, lymphadenopathy, rash, or other complaints. Principal Diagnosis intractable musculoskeletal hip pain-> improved Discharge Exam The patient appeared improved as much less pain with movement Vital signs as documented. Lungs are clear to auscultation and appear unlabored Cardiac exam, Rhythm is regular.. No murmurs, rubs or gallops. Abdominal exam reveals normal bowel sounds, soft non tender, no masses Extremities are nonedematous and both pedal pulses are normal pain is greatly improved Neurologic exam is alert and oriented, no focal loss of strength or sensation Skin is without bruises or rashes Psychologically is without concerns for anxiety or depression Discharge Data Allergies Allergy/AdvReac Type Severity Reaction Status Date / Time doxycycline Allergy Unknown Hives Verified 02/16/20 06:38 labetalol Allergy Unknown tired and Verified 02/16/20 06:38 depressed lorazepam Allergy Unknown "SQUIRRELLY Verified 02/16/20 06:38 " Pork/Porcine Containing Allergy Unknown tired and Verified 02/16/20 06:38 Products depression tetracycline Allergy Unknown unknown(not Verified 02/16/20 06:38 100% sure if she's allergic to it) tramadol AdvReac Unknown dizzy, Verified 02/16/20 06:38 emesis Consultations 02/16/20 16:39 Consult Nephrology Routine Ordered Studies 02/16/20 06:49 CT hip LT wo con Stat 02/16/20 09:51 CT lumbar spine wo con Stat Hospital Course (1) Accidental fall: Patient reportedly with an accidental fall at home she was having increased pain and difficulty ambulating. Imaging in the ER including CT scan lumbar spine and hip do not show any acute fractures. Focal pain is improved Pain control will be via scheduled Tylenol and oral opiates, she is given a small supply of opiates for home use, with continuation of Lidoderm topical pain relief patient was able ambulate in her room satisfactorily and wants to go home PT OT evaluation (2) HFrEF (heart failure with reduced ejection fraction): Ejection fraction in the 30 to 35% range, continue on carvedilol 25 twice daily, amlodipine 5, Lasix 40 mg, hydralazine 25 3 times daily (3) Atrial fibrillation: Patient is rate controlled with carvedilol and anticoagulated with apixaban renal dose adjusted 2.5 twice daily (4) Diabetes: Patient agrees that she is diabetic but does not take medications are particularly have dietary modification will check an A1c in the morning (5) ESRD (end stage renal disease) on dialysis: Patient previously on hemodialysis he says she is now off dialysis but with sevelamer continuing 3 times daily along with sodium bicarbonate twice daily, Neurology is seen today they request no additional medication changes and are satisfied with her creatinine being in 3 range no nephrological intervention was undertaken nephrology is pleased with her stability and agrees to discharge her on her typical medications (6) Subclavian artery stenosis: (7) Carotid artery stenosis without cerebral infarction: (8) Depression: (9) Hypothyroidism: Total Time Total Time Spent Total Time Spent (In Minutes): It required greater than 30 minutes to prepare this patient for discharge Discharge Plan Discharge Items Patient Disposition: Home - Home Health Services Reason For Visit: INTRACTABLE HIP PAIN Discharge Diagnosis: intractable hip pain-> resolved Activity: Resume your previous activity Non-emergency contact: Primary Care Provider Call non-emergency contact if: you have any medication questions and your symptoms worsen Follow-up/Referrals: Mike Carrington MD [Primary Care Provider] - Diet: Regular Addtl Attending Provider Instructions: please take it easy but continue to move about, be careful not to fall again Pending Studies at Discharge: No Stand-Alone Forms: My [employer], Opioid Pain Management, Smoking Gabo sation Medications and DC Order Prescriptions: New acetaminophen 500 mg Tablet 1,000 mg PO TID 7 Days Qty: 42 RF: 0 lidocaine 5 % Adhesive Patch,Medicated 1 patch transdermal QAM Qty: 10 RF: 0 oxycodone 5 mg Tablet 10 mg PO Q6H PRN (Reason: pain) Qty: 10 RF: 0 Continued hydralazine 25 mg tablet 25 mg PO TID Qty: 90 RF: 11 Eliquis 2.5 mg tablet 2.5 mg PO BID Qty: 60 RF: 5 sodium bicarbonate 650 mg tablet 650 mg PO BID Qty: 180 RF: 3 Breo Ellipta 200-25 mcg/dose blister with device 1 puffs INH DAILY Qty: 60 RF: 0 levothyroxine 175 mcg tablet 175 mcg PO DAILY Qty: 90 RF: 3 carvedilol 25 mg tablet 25 mg PO BID Qty: 60 RF: 5 betamethasone valerate 0.1 % ointment 1 appln TOP BID Qty: 45 RF: 1 aspirin 81 mg tablet,delayed release (DR/EC) 81 mg PO DAILY RF: 0 sevelamer carbonate 800 mg tablet 800 mg PO TIDM RF: 0 amlodipine 5 mg tablet 5 mg PO DAILY RF: 0 ranitidine HCl 150 mg Tablet 150 mg PO DAILY RF: 0 folic acid 1 mg Tablet 1 mg PO QAM Qty: 30 RF: 0 furosemide 40 mg Tablet 40 mg PO DAILY RF: 0 Discharge Orders: Discharge Order (Routine); Ordered 02/18/20 Ordered By: Tab Arguelles Admission Data Admit Date/Time: 02/16/20 14:48 Attending Provider: Tab Arguelles Admit Provider: Tab Arguelles Primary Care Provider: Miek Carrington Other Providers: Joey Reyez ; [facility] Other Interventions: Discharge Summary Assessment (RN) Last Done: 02/18/20 09:47 Coding Level of Care Code D/C Day Management >30 mins Diagnoses Accidental fall W19.XXXA HFrEF (heart failure with reduced ejection fraction) I50.20 Atrial fibrillation I48.91 Diabetes E11.9 ESRD (end stage renal disease) on dialysis N18.6; Z99.2 Subclavian artery stenosis I77.1 Carotid artery stenosis without cerebral infarction I65.29 Depression F32.9 Hypothyroidism E03.9 Hypothyroidism type: acquired
== END 2020-02-18 11:25 | disposition home health service (06) | DRG 555 ==
LOC: ED 06:08 → 3N 14:48

== ENCOUNTER 2020-02-21 16:32 | Inpatient (IN) ==
--- NOTE | 2020-02-21 16:56 | Emergency Department Note ---
History of Present Illness General Chief complaint: Overdose (Accidental) Stated complaint: OVERDOSE, AMS, Time Seen by Provider: 02/21/20 16:39 History of Present Illness Provider complaint: AMS Onset (ago): day(s) 1 Maximum Pain Intensity: 0 Associated symptoms: + confusion; no chest pain, no fever/chills, no headaches, no seizure and no shortness of breath 79-year-old female presents emergency department by EMS for altered mental status and possible overdose. Per EMS, the patient possibly overdosed on oxycodone 5 mg tablets. Per EMS, the patient's home health care nurse came over this afternoon and found the patient to have altered mental status and pinpoint pupils. She also notes that the patient had cuts on the bottom of her feet. Patient's had a prescription for 10 5 mg oxycodone tablets dropped off yesterday by her daughter at 4 PM per EMS and today they are only to left. Patient denies any falls. She does report left-sided hip pain. Home Medications Home Medications Medication Instructions Recorded Confirmed Type hydralazine 25 mg tablet 25 mg PO TID #90 tab 01/28/19 02/21/20 Rx folic acid 1 mg PO QAM #30 tab 04/06/19 02/21/20 Rx apixaban 2.5 mg tablet 2.5 mg PO BID #60 tab 05/23/19 02/21/20 Rx sodium bicarbonate 650 mg tablet 650 mg PO BID #180 tab 05/30/19 02/21/20 Rx fluticasone furoate 200 1 puffs INH DAILY #60 ea 06/06/19 02/21/20 Rx mcg-vilanterol 25 mcg/dose inhalation powder aspirin 81 mg PO DAILY 07/14/19 02/21/20 History betamethasone valerate 0.1 % 1 appln TOP BID #45 gm 08/09/19 02/21/20 Rx topical ointment carvedilol 25 mg tablet 25 mg PO BID #60 tab 08/11/19 02/21/20 Rx furosemide 40 mg PO DAILY 09/07/19 02/21/20 History levothyroxine 175 mcg tablet 175 mcg PO DAILY #90 tab 09/09/19 02/21/20 Rx amlodipine 5 mg PO DAILY 02/16/20 02/21/20 History sevelamer carbonate 800 mg PO TIDM 02/16/20 02/21/20 History acetaminophen 1,000 mg PO TID 7 Days #42 tab 02/18/20 02/21/20 Rx lidocaine 1 patch TRANSDERMAL QAM #10 ea 02/18/20 02/21/20 Rx oxycodone 10 mg PO Q6H PRN #10 tab 02/18/20 02/21/20 Rx Allergies Allergy/AdvReac Type Severity Reaction Status Date / Time doxycycline Allergy Unknown Hives Verified 02/16/20 06:38 labetalol Allergy Unknown tired and Verified 02/16/20 06:38 depressed lorazepam Allergy Unknown "SQUIRRELLY Verified 02/16/20 06:38 " Pork/Porcine Containing Allergy Unknown tired and Verified 02/16/20 06:38 Products depression tetracycline Allergy Unknown unknown(not Verified 02/16/20 06:38 100% sure if she's allergic to it) tramadol AdvReac Unknown dizzy, Verified 02/16/20 06:38 emesis Past Med/Surg History Medical History Accidental fall Anemia associated with chronic renal failure Asthma Atrial fibrillation Dx 02/2019. On Eliquis. Per Dr. Grimaldo 03/03/19 office note, suspect afib was present for a long time given significant biatrial dilatation. Cardiomyopathy Systolic CHF, EF 25-30% on echo 03/28/19 with global HK. Per cardiology consult 02/14/19, cannot exlude ischemic etiology, but may also be 2/2 prolonged tachycardia. Euvolemic on exam at PAT 09/07/19. Carotid artery stenosis without cerebral infarction < 50% bilateral carotid stenosis per 2018 imaging (*No imaging in our records but this was noted by PCP at 06/2019 office visit) Cognitive impairment Daughter, Linda Dupont, primary account retention representative Depression Diabetes diet controlled ESRD (end stage renal disease) on dialysis pt to do dialysis MWF in [facility] but has been refusing to go and according to the daughter she has not been there for about the last 2 weeks. Hypertension Hyponatremia 2/2 SIADH Hypothyroidism Osteopenia Proteinuria Psoriasis Secondary hyperparathyroidism SIADH (syndrome of inappropriate ADH production) Systolic CHF EF 25-30% per 03/2019 echo Surgical History H/O colonoscopy History of dilatation and curettage History of vascular access device RIGHT UPPER CHEST PERMACATH FOR DIALYSIS 04/01/19 S/P arteriovenous (AV) fistula creation Jul 2019 Family History Father Heart disease Mother Diabetes Heart disease Hypertension Daughter Breast cancer Brother Hypertension Grandmother (Maternal) Family hx of colon cancer Denies family history of Ovarian cancer Colorectal cancer Colonic polyp Social History Smoking Status: Former smoker Second Hand Exposure: Yes (hx - family and spouse); Hx Alcohol Use: No Hx Substance Use: No Preferred Language: Polish Communication Ability: Effective Lockstitch Pocket Setter Required: No Beliefs That Will Affect Care: None marital status: Single Current Living Situation: Alone current occupational status: retired current occupation: [employer] Feels Safe at Home: Yes Review of Systems A total of 10 systems reviewed and were otherwise negative Physical Exam Vital Signs Vital Signs - 24 hr 02/21/20 16:30 02/21/20 16:40 02/21/20 16:41 Temperature 36.5 C Temperature Source Oral Pulse Rate 78 83 78 Pulse Rate [Finger] Pulse Rate from SpO2 Sensor 81 Pulse Rhythm Regular Pulse Strength Normal Respiratory Rate 12 18 17 Respiratory Effort / Characteristics Non-Labored Spontaneous Respiratory Depth Normal Respiratory Pattern Regular Blood Pressure 192/108 H 206/101 H 192/108 H Blood Pressure [Right Arm] Blood Pressure Mean 136 137 165 Blood Pressure Mean [Right Arm] Blood Pressure Position Lying Pulse Oximetry 94 96 Oxygen Delivery Method Room Air Sepsis Recent Fever Within 48 Hours No Sepsis New/Unexplained Change in Mental Status No Sepsis Action Taken by Nursing No Action Required 02/21/20 18:43 02/21/20 19:00 02/21/20 19:01 Temperature Temperature Source Pulse Rate 86 84 75 Pulse Rate [Finger] 88 Pulse Rate from SpO2 Sensor 87 80 78 Pulse Rhythm Pulse Strength Respiratory Rate 16 15 18 Respiratory Effort / Characteristics Respiratory Depth Respiratory Pattern Blood Pressure 223/123 H 211/108 H Blood Pressure [Right Arm] 211/108 H Blood Pressure Mean 155 132 Blood Pressure Mean [Right Arm] 142 Blood Pressure Position Pulse Oximetry 96 99 98 Oxygen Delivery Method Room Air Sepsis Recent Fever Within 48 Hours Sepsis New/Unexplained Change in Mental Status Sepsis Action Taken by Nursing 02/21/20 19:30 02/21/20 20:00 08/18/20 20:30 Temperature Temperature Source Pulse Rate 85 80 66 Pulse Rate [Finger] Pulse Rate from SpO2 Sensor 85 83 76 Pulse Rhythm Pulse Strength Respiratory Rate 19 16 15 Respiratory Effort / Characteristics Respiratory Depth Respiratory Pattern Blood Pressure 187/114 H 178/90 H 172/86 H Blood Pressure [Right Arm] Blood Pressure Mean 137 129 104 Blood Pressure Mean [Right Arm] Blood Pressure Position Pulse Oximetry 96 97 95 Oxygen Delivery Method Sepsis Recent Fever Within 48 Hours Sepsis New/Unexplained Change in Mental Status Sepsis Action Taken by Nursing 02/21/20 21:00 02/21/20 21:30 02/21/20 22:00 Temperature Temperature Source Pulse Rate 72 78 83 Pulse Rate [Finger] Pulse Rate from SpO2 Sensor 81 72 76 Pulse Rhythm Pulse Strength Respiratory Rate 21 21 17 Respiratory Effort / Characteristics Respiratory Depth Respiratory Pattern Blood Pressure 176/94 H 182/87 H Blood Pressure [Right Arm] Blood Pressure Mean 106 123 Blood Pressure Mean [Right Arm] Blood Pressure Position Pulse Oximetry 98 98 96 Oxygen Delivery Method Sepsis Recent Fever Within 48 Hours Sepsis New/Unexplained Change in Mental Status Sepsis Action Taken by Nursing 02/21/20 22:01 02/21/20 22:02 02/21/20 22:30 Temperature Temperature Source Pulse Rate 72 72 69 Pulse Rate [Finger] Pulse Rate from SpO2 Sensor 70 72 73 Pulse Rhythm Pulse Strength Respiratory Rate 13 19 14 Respiratory Effort / Characteristics Respiratory Depth Respiratory Pattern Blood Pressure 178/78 H Blood Pressure [Right Arm] Blood Pressure Mean 99 Blood Pressure Mean [Right Arm] Blood Pressure Position Pulse Oximetry 96 96 96 Oxygen Delivery Method Sepsis Recent Fever Within 48 Hours Sepsis New/Unexplained Change in Mental Status Sepsis Action Taken by Nursing 02/21/20 22:31 Temperature Temperature Source Pulse Rate 74 Pulse Rate [Finger] Pulse Rate from SpO2 Sensor 81 Pulse Rhythm Pulse Strength Respiratory Rate 18 Respiratory Effort / Characteristics Respiratory Depth Respiratory Pattern Blood Pressure 159/90 H Blood Pressure [Right Arm] Blood Pressure Mean 110 Blood Pressure Mean [Right Arm] Blood Pressure Position Pulse Oximetry 96 Oxygen Delivery Method Sepsis Recent Fever Within 48 Hours Sepsis New/Unexplained Change in Mental Status Sepsis Action Taken by Nursing Physical Exam GENERAL: She is oriented to person, place, and time. She appears well-developed and well-nourished. She does not appear distressed. HENT: Exam performed. -Head: Normocephalic and atraumatic. -Right Ear: External ear normal. No mastoid tenderness. -Left Ear: External ear normal. No mastoid tenderness. -Mouth/Throat: The oropharynx is clear and moist. No trismus in the jaw. No dental abscesses or uvula swelling. No oropharyngeal exudate or tonsillar abscesses. EYES: Pinpoint pupils not reacting to light bilaterally. NECK: Normal range of motion. Neck supple. No JVD present. No spinous process tenderness present. No carotid bruit present. No rigidity. No tracheal deviation and normal range of motion present. No Brudzinski's sign and no Kernig's sign noted. CV: Normal rate, irregular rhythm, normal heart sounds and intact distal pulses. There is no peripheral edema. Palpable radial pulses bue. PULM/CHEST: Effort normal and breath sounds normal. No respiratory distress. No stridor. She has no wheezes. She has no rales. -Chest Wall: She exhibits no tenderness. ABD: The abdomen is soft. Bowel sounds are normal. She has no distension. No mass is present. There is no tenderness. There is no rebound, no guarding, no Regan's sign and no tenderness at McBurney's point. Rovsig negative MUSC/SKEL: Pain on palpation of the left hip. LYMPH: No cervical adenopathy. NEURO: She is alert and oriented to person, place, and time. She has normal strength. No cranial nerve deficit or sensory deficit. Coordination and gait normal. GCS eye subscore is 4. GCS verbal subscore is 5. GCS motor subscore is 6. Cerebellar tests wnl. SKIN: Abrasions and dry skin with some peeling on the soles of her feet. PSYCH: She has a normal mood and affect. Behavior is normal. Judgment and thought content normal. Course Course 1639: The patient was evaluated in room A11. A complete history and physical exam was performed. Cardiac monitoring: An order was placed for continuous cardiac monitoring. The monitor shows a rate of 70 with atrial fibrillation rhythm 170: Spoke with [facility]. They recommended symptomatic/supportive care if necessary and 4 to 6 hours of observation. 1945: Vital signs stable. Patient's creatinine is at baseline. Patient's home health care nurse called and spoke with the block and case maker Wendy and told her that they are concerned that the patient is not taking her medications as her thyroid medication was found in the patient's birdcage. I did ask if the patient if she has been taking her medications and she said no. The home health care nurse was suggested that the patient should go to rehab. I asked the patient if she wanted to go to rehab and she did state that she would like to go to rehab. Discussed the case with not any hospitalist Dr. Petersen who agreed to evaluate the patient. Administered Medications Discontinued Medications Carvedilol (Carvedilol 25 Mg Tab) 25 mg PO NOW ONE Stop: 02/21/20 19:11 Last Admin: 02/21/20 19:26 Dose: 25 mg Documented by: [id number] Hydralazine HCl (Hydralazine Hcl 25 Mg Tab) 25 mg PO NOW STA Stop: 02/21/20 19:11 Last Admin: 02/21/20 19:26 Dose: 25 mg Documented by: [id number] Medical Decision Making Laboratory Data Result diagrams: 02/21/20 16:59 02/21/20 17:01 Lab Results 02/21/20 02/21/20 02/21/20 Range/Units 16:59 16:59 16:59 WBC 5.63 (4.8-10.8) K/uL RBC 4.37 (4.2-5.4) M/uL Hgb 14.0 (12.0-16.0) g/dL Hct 42.8 (37-47) % MCV 97.9 (80-100) fL MCH 32.0 (25-34) pg MCHC 32.7 (32-36) g/dL RDW Std Deviation 50.5 H (36.4-46.3) fL RDW Coeff of Carlo 14.2 (11.5-14.5) % Plt Count 216 (130-400) K/uL MPV 10.6 H (7.4-10.4) fL Immature Gran % (Auto) 0.7 % Neut % (Auto) 66.0 % Lymph % (Auto) 17.9 % [place] % (Auto) 9.9 % Eos % (Auto) 4.8 % Baso % (Auto) 0.7 % Neut # (Auto) 3.71 (1.4-6.5) K/uL Lymph # (Auto) 1.01 L (1.2-3.4) K/uL [place] # (Auto) 0.56 (0.11-0.59) K/uL Eos # (Auto) 0.27 (0-0.5) K/uL Baso # (Auto) 0.04 (0-0.2) K/uL Immature Gran # (Auto) 0.04 H (0.00-0.02) K/uL PT INR APTT PTT Ratio Sodium (136-145) mmol/L Potassium (3.5-5.1) mmol/L Chloride (98-107) mmol/L Carbon Dioxide (21-32) mmol/L Anion Gap (3-11) BUN (7-18) mg/dl Creatinine (0.6-1.2) mg/dl Est Cr Clr Drug Dosing ml/min Est GFR ( Amer) Est GFR (Non-Af Amer) BUN/Creatinine Ratio (10-20) Glucose (70-99) mg/dl POC Glucose (70-99) mg/dl Calcium (8.5-10.1) mg/dl Magnesium (1.8-2.4) mg/dl Troponin I (0-0.045) ng/ml TSH (0.300-4.500) uIu/ml Free T4 (0.8-1.6) ng/dl Specimen Hemolysis Salicylates < 1.7 L (2.8-20) mg/dl Acetaminophen < 2 L (10-30) ug/ml Ethyl Alcohol mg/dL < 3.0 (0-3) mg/dl 02/21/20 02/21/20 02/21/20 Range/Units 16:59 17:01 17:01 WBC (4.8-10.8) K/uL RBC (4.2-5.4) M/uL Hgb (12.0-16.0) g/dL Hct (37-47) % MCV (80-100) fL MCH (25-34) pg MCHC (32-36) g/dL RDW Std Deviation (36.4-46.3) fL RDW Coeff of Carlo (11.5-14.5) % Plt Count (130-400) K/uL MPV (7.4-10.4) fL Immature Gran % (Auto) % Neut % (Auto) % Lymph % (Auto) % [place] % (Auto) % Eos % (Auto) % Baso % (Auto) % Neut # (Auto) (1.4-6.5) K/uL Lymph # (Auto) (1.2-3.4) K/uL [place] # (Auto) (0.11-0.59) K/uL Eos # (Auto) (0-0.5) K/uL Baso # (Auto) (0-0.2) K/uL Immature Gran # (Auto) (0.00-0.02) K/uL PT Cancelled INR Cancelled APTT Cancelled PTT Ratio Cancelled Sodium 134 L (136-145) mmol/L Potassium 4.4 (3.5-5.1) mmol/L Chloride 101 (98-107) mmol/L Carbon Dioxide 25 (21-32) mmol/L Anion Gap 9.0 (3-11) BUN 62 H (7-18) mg/dl Creatinine 3.34 H (0.6-1.2) mg/dl Est Cr Clr Drug Dosing 12.3 ml/min Est GFR ( Amer) 14.5 Est GFR (Non-Af Amer) 12.5 BUN/Creatinine Ratio 18.5 (10-20) Glucose 104 H (70-99) mg/dl POC Glucose 105 H (70-99) mg/dl Calcium 9.5 (8.5-10.1) mg/dl Magnesium 2.9 H (1.8-2.4) mg/dl Troponin I < 0.015 (0-0.045) ng/ml TSH 22.200 H (0.300-4.500) uIu/ml Free T4 1.45 (0.8-1.6) ng/dl Specimen Hemolysis Salicylates (2.8-20) mg/dl Acetaminophen (10-30) ug/ml Ethyl Alcohol mg/dL (0-3) mg/dl 02/21/20 Range/Units 18:15 WBC (4.8-10.8) K/uL RBC (4.2-5.4) M/uL Hgb (12.0-16.0) g/dL Hct (37-47) % MCV (80-100) fL MCH (25-34) pg MCHC (32-36) g/dL RDW Std Deviation (36.4-46.3) fL RDW Coeff of Carlo (11.5-14.5) % Plt Count (130-400) K/uL MPV (7.4-10.4) fL Immature Gran % (Auto) % Neut % (Auto) % Lymph % (Auto) % [place] % (Auto) % Eos % (Auto) % Baso % (Auto) % Neut # (Auto) (1.4-6.5) K/uL Lymph # (Auto) (1.2-3.4) K/uL [place] # (Auto) (0.11-0.59) K/uL Eos # (Auto) (0-0.5) K/uL Baso # (Auto) (0-0.2) K/uL Immature Gran # (Auto) (0.00-0.02) K/uL PT 10.3 INR 1.0 APTT 31.3 H PTT Ratio 1.1 Sodium (136-145) mmol/L Potassium (3.5-5.1) mmol/L Chloride (98-107) mmol/L Carbon Dioxide (21-32) mmol/L Anion Gap (3-11) BUN (7-18) mg/dl Creatinine (0.6-1.2) mg/dl Est Cr Clr Drug Dosing ml/min Est GFR ( Amer) Est GFR (Non-Af Amer) BUN/Creatinine Ratio (10-20) Glucose (70-99) mg/dl POC Glucose (70-99) mg/dl Calcium (8.5-10.1) mg/dl Magnesium (1.8-2.4) mg/dl Troponin I (0-0.045) ng/ml TSH (0.300-4.500) uIu/ml Free T4 (0.8-1.6) ng/dl Specimen Hemolysis Salicylates (2.8-20) mg/dl Acetaminophen (10-30) ug/ml Ethyl Alcohol mg/dL (0-3) mg/dl Imaging Data Radiologist's Impression: XR hip LT 2V w pelvis CLINICAL HISTORY: L hip pain COMPARISON: February 16, 2020 DISCUSSION: There are extensive vascular calcifications present. The bones are osteopenic. No fractures or dislocations are visualized. There are mild degenerative changes. No destructive lesions are evident. IMPRESSION: 1. No acute fractures 2. Mild degenerative change 3. Extensive vascular calcification ACT 112: Negative or not required by law. Electronically signed by: Marek Garcia M.D. 02/21/2020 5:56 PM Dictated: 02/21/201754 Transcribed: 02/21/201754 XR chest 1V portable CLINICAL HISTORY: Acute change in mental status COMPARISON STUDY: July 2019 FINDINGS: The right-sided central venous catheter has been removed. The heart is enlarged. There is no failure. There is no focal pulmonary consolidation. No pleural effusions.[ IMPRESSION: Cardiomegaly. No acute findings. ACT 112: Negative or not required by law. Electronically signed by: Marek Garcia M.D. 02/21/2020 5:55 PM Dictated: 02/21/201753 Transcribed: 02/21/201753 CT head/brain wo con CLINICAL HISTORY: Acute change in mental status COMPARISON STUDY: 09/14/2016 TECHNIQUE: Axial CT of the brain is performed from the vertex to the skull base. IV contrast was not administered for this examination. A dose lowering technique was utilized adhering to the principles of ALARA. CT DOSE: 537.48 mGy.cm FINDINGS: No intra or extra-axial mass lesions are visualized. There is no CT evidence of acute cortical infarction. There is no evidence of midline shift. There is no acute hemorrhage. No calvarial fractures are visualized. There are patchy white matter hypodensities likely on a small vessel basis. There is no evidence of pathologic ventricular dilatation. There is no evidence of acute sinusitis IMPRESSION: No acute intracranial findings ACT 112: Negative or not required by law. Electronically signed by: Marek Garcia M.D. 02/21/2020 5:29 PM Dictated: 02/21/201724 Transcribed: 02/21/201724 ECG Data Indication: + toxicologic Rate (beats per minute): 71 Rhythm: + atrial fibrillation ECG Intervals/blocks: + Normal QRS and + Normal QT-c ECG ST segments: + Normal ST segments ECG Findings: + PVCs MDM Narrative 1639: The patient was evaluated in room A11. A complete history and physical exam was performed. Cardiac monitoring: An order was placed for continuous cardiac monitoring. The monitor shows a rate of 70 with atrial fibrillation rhythm 1705: Spoke with [facility]. They recommended symptomatic/supportive care if necessary and 4 to 6 hours of observation. 1945: Patient's creatinine is at baseline. Patient's home health care nurse called and spoke with the block and case maker Wendy and told her that they are concerned that the patient is not taking her medications as her thyroid medication was found in the patient's birdcage. I did ask if the patient if she has been taking her medications and she said no. This is the most likely reason why the patient's blood pressure was elevated. She was given her home dose of hydralazine and carvedilol. The home health care nurse was suggested th at the patient should go to rehab. I asked the patient if she wanted to go to rehab and she did state that she would like to go to rehab. Discussed the case with not any hospitalist Dr. Petersen who agreed to evaluate the patient. Impression & Plan Opiate abuse, episodic, Noncompliance with medication regimen Discharge Plan Visit Data Chief Complaint: Overdose (Accidental) Stated Complaint: OVERDOSE, AMS, ED Provider: Shelton Cuellar Discharge Problem: Opiate abuse, episodic, Noncompliance with medication regimen Patient Disposition: Being Evaluated by Hospitalist Discharge Instructions Interventions: ED Discharge Assessment Last Done: 02/21/20 22:58 Forms Stand Alone Forms: My [facility] Prescriptions Prescriptions: No Action hydralazine 25 mg tablet 25 mg PO TID Qty: 90 RF: 11 Eliquis 2.5 mg tablet 2.5 mg PO BID Qty: 60 RF: 5 sodium bicarbonate 650 mg tablet 650 mg PO BID Qty: 180 RF: 3 Breo Ellipta 200-25 mcg/dose blister with device 1 puffs INH DAILY Qty: 60 RF: 0 levothyroxine 175 mcg tablet 175 mcg PO DAILY Qty: 90 RF: 3 carvedilol 25 mg tablet 25 mg PO BID Qty: 60 RF: 5 betamethasone valerate 0.1 % ointment 1 appln TOP BID Qty: 45 RF: 1 aspirin 81 mg tablet,delayed release (DR/EC) 81 mg PO DAILY RF: 0 sevelamer carbonate 800 mg tablet 800 mg PO TIDM RF: 0 amlodipine 5 mg tablet 5 mg PO DAILY RF: 0 acetaminophen 500 mg Tablet 1,000 mg PO TID 7 Days Qty: 42 RF: 0 lidocaine 5 % Adhesive Patch,Medicated 1 patch transdermal QAM Qty: 10 RF: 0 oxycodone 5 mg Tablet 10 mg PO Q6H PRN (Reason: pain) Qty: 10 RF: 0 folic acid 1 mg Tablet 1 mg PO QAM Qty: 30 RF: 0 furosemide 40 mg Tablet 40 mg PO DAILY RF: 0 Referrals Referrals: Mike Carrington MD [Primary Care Provider] -
[2020-02-21 17:19] LABS: Basophils # (auto) 0.04 K/uL (0-0.2); Basophils % (auto) 0.7 %; Eosinophils # (auto) 0.27 K/uL (0-0.5); Eosinophils % (auto) 4.8 %; Hematocrit (blood only) 42.8 % (37-47); Immature Granulocytes # (auto) 0.04 K/uL (0.00-0.02); Immature Granulocytes % (auto) 0.7 %; Lymphocytes # (auto) 1.01 K/uL (1.2-3.4); Lymphocytes % (auto) 17.9 %; Mean Corpuscular Hgb Conc 32.7 g/dL (32-36); Mean Corpuscular Volume 97.9 fL (80-100); Mean Platelet Volume 10.6 fL (7.4-10.4); Monocytes # (auto) 0.56 K/uL (0.11-0.59); Monocytes % (auto) 9.9 %; Neutrophils # (auto) 3.71 K/uL (1.4-6.5); Platelet Count 216 K/uL (130-400); RDW Coefficient of Variation 14.2 % (11.5-14.5); RDW Standard Deviation 50.5 fL (36.4-46.3); Red Blood Count 4.37 M/uL (4.2-5.4); White Blood Count 5.63 K/uL (4.8-10.8)
--- NOTE | 2020-02-21 17:31 | CT Scan Report ---
CT head/brain wo con CLINICAL HISTORY: Acute change in mental status COMPARISON STUDY: 09/14/2016 TECHNIQUE: Axial CT of the brain is performed from the vertex to the skull base. IV contrast was not administered for this examination. A dose lowering technique was utilized adhering to the principles of ALARA. CT DOSE: 537.48 mGy.cm FINDINGS: No intra or extra-axial mass lesions are visualized. There is no CT evidence of acute cortical infarc tion. There is no evidence of midline shift. There is no acute hemorrhage. No calvarial fractures ar e visualized. There are patchy white matter hypodensities likely on a small vessel basis. There is no evidence of pathologic ventricular dilatation. There is no evidence of acute sinusitis IMPRESSION: No acute intracranial findings ACT 112: Negative or not required by law. Electronically signed by: Marek Garcia M.D. 02/21/2020 5:29 PM
[2020-02-21 17:54] LABS: BUN Creatinine Ratio 18.5 (10-20); Blood Urea Nitrogen 62 mg/dl (7-18); Calcium 9.5 mg/dl (8.5-10.1); Carbon Dioxide 25 mmol/L (21-32); Chloride 101 mmol/L (98-107); Creatinine Clr Calc Pharmacy 12.3 ml/min; Est GFR (African American) 14.5; Est GFR (Non-African American) 12.5; Glucose 104 mg/dl (70-99); Sodium 134 mmol/L (136-145); Troponin I < 0.015 ng/ml (0-0.045)
--- NOTE | 2020-02-21 17:57 | XRay Report ---
XR chest 1V portable CLINICAL HISTORY: Acute change in mental status COMPARISON STUDY: July 2019 FINDINGS: The right-sided central venous catheter has been removed. The heart is enlarged. There is n o failure. There is no focal pulmonary consolidation. No pleural effusions.[ IMPRESSION: Cardiomegaly. No acute findings. ACT 112: Negative or not required by law. Electronically signed by: Marek Garcia M.D. 02/21/2020 5:55 PM
[2020-02-21 17:58] LABS: Magnesium 2.9 mg/dl (1.8-2.4); Potassium 4.4 mmol/L (3.5-5.1)
--- NOTE | 2020-02-21 17:58 | XRay Report ---
XR hip LT 2V w pelvis CLINICAL HISTORY: L hip pain COMPARISON: February 16, 2020 DISCUSSION: There are extensive vascular calcifications present. The bones are osteopenic. No fractur es or dislocations are visualized. There are mild degenerative changes. No destructive lesions are ev ident. IMPRESSION: 1. No acute fractures 2. Mild degenerative change 3. Extensive vascular calcification ACT 112: Negative or not required by law. Electronically signed by: Marek Garcia M.D. 02/21/2020 5:56 PM
[2020-02-21 18:24] LABS: T4 Free Thyroxine 1.45 ng/dl (0.8-1.6)
[2020-02-21 18:44] LABS: Salicylate < 1.7 mg/dl (2.8-20)
[2020-02-21 18:45] LABS: Acetaminophen < 2 ug/ml (10-30)
[2020-02-21 18:48] LABS: Partial Thromboplastin Ratio 1.1; Partial Thromboplastin Time 31.3 Seconds (21.0-31.0); Prothrombin Time 10.3 Seconds (9.0-12.0)
[2020-02-21] MEDS ORDERED: carvediloL 25 MG TAB PO ONE (19:10)
[2020-02-21] MEDS ORDERED: ALUMINUM/MAGNESIUM SUSP 30 ML UDC PO PRN (23:42)
[2020-02-21] MEDS ORDERED: ONDANSETRON INJ 2 MG/ML 2 ML VIAL IV PRN (23:42)
[2020-02-21] MEDS ORDERED: ACETAMINOPHEN 325 MG TAB PO PRN (23:42)
[2020-02-21] MEDS ORDERED: MAGNESIUM HYDROXIDE SUSP 30 ML UDC PO PRN (23:42)
[2020-02-21] MEDS ORDERED: OXYCODONE HCL IR 5 MG TAB (IMMEDIATE RELEASE) PO PRN (23:55)
[2020-02-22] MEDS: BETAMETHASONE VAL 0.1% OINT 15 GM TUBE EXT SCH ×2 (00:43→12:51)
[2020-02-22] MEDS: APIXABAN 2.5 MG TAB PO SCH ×3 (00:48→20:21)
[2020-02-22] MEDS: SODIUM BICARBONATE 650 MG TAB PO SCH ×3 (00:49→20:21)
[2020-02-22] MEDS: carvediloL 25 MG TAB PO SCH ×3 (00:59→20:22)
--- NOTE | 2020-02-22 04:44 | History & Physical Report ---
Date of Service February 22, 2020 The patient was seen and examined on February 21, 2020 Assessment & Plan (1) Hip pain, left: Patient was advised at last admission, to go to [facility] for rehab. Patient agrees that she needs inpatient rehab, and manager social media will consult to help make arrangements. Consult PT/OT Present on Admission?: Yes (2) CKD (chronic kidney disease): Patient had been on hemodialysis, which was stopped on 11/22, and reportedly has been doing acceptably since that time. She was seen by Dr. Hassan during last hospitalization, who recommended patient follow-up with Dr. Parikh in the outpatient setting. Continue folic acid 1 mg p.o. daily, sevelamer 800 mg p.o. 3 times daily with meals, and sodium bicarbonate 650 mg p.o. twice daily Present on Admission?: Yes (3) HFrEF (heart failure with reduced ejection fraction): HFrEF/atrial fibrillation/hypertension- Continue carvedilol 25 mg p.o. twice daily, furosemide 40 mg p.o. daily, hydralazine 25 mg p.o. 3 times daily, amlodipine 5 mg p.o. daily, aspirin 81 mg p.o. daily and apixaban 2.5 mg p.o. twice daily Present on Admission?: Yes (4) Atrial fibrillation: See above Present on Admission?: Yes (5) Hypothyroidism: Continue levothyroxine 125 mcg daily Present on Admission?: Yes (6) Hypertension: See above Present on Admission?: Yes (7) Opiate abuse, episodic: Patient's altered mental status as determined by visiting nurse early day today, is most likely due to excessive use of prescribed oxycodone, and should be avoided Present on Admission?: Yes Admission and Anticipated Discharge Date Admission Date: February 21, 2020 History of Present Illness Chief Complaint: The patient was brought to the ED by EMS after the patient's visiting nurse found the patient in the afternoon to have altered mental status and pinpoint pupils. Primary Care Provider: Enzo Carrington MD The patient is a 79-year-old female with a past medical history including episodic opiate abuse, noncompliance with medical regimen, CKD, hypertension, pulmonary hypertension, mitral gravitation, HFrEF, alcohol abuse, vitamin D deficiency, subclavian artery stenosis, anxiety, asthma, carotid artery stenosis, cognitive impairment, depression, diabetes mellitus, secondary hyperparathyroidism, atrial fibrillation, ESRD on dialysis, cardiomyopathy, psoriasis, hypothyroidism and SIADH. She is most recently admitted to [facility] from 02/15-02/17 for left hip pain. She was advised upon discharge that she should go to rehab at [facility], however, patient preferred to go home. She now feels that she is unable to ambulate well at home, and would like to be sent to [facility] for rehab. There is reportedly also a discrepancy in the number of pills of oxycodone that she had been prescribed and there were none remaining in the bottle, suggesting that she used too many pain pills too fast. Allergies Allergy/AdvReac Type Severity Reaction Status Date / Time doxycycline Allergy Unknown Hives Verified 02/16/20 06:38 labetalol Allergy Unknown tired and Verified 02/16/20 06:38 depressed lorazepam Allergy Unknown "SQUIRRELLY Verified 02/16/20 06:38 " Pork/Porcine Containing Allergy Unknown tired and Verified 02/16/20 06:38 Products depression tetracycline Allergy Unknown unknown(not Verified 02/16/20 06:38 100% sure if she's allergic to it) tramadol AdvReac Unknown dizzy, Verified 02/16/20 06:38 emesis Home Medications Home Medications Medication Instructions Recorded Confirmed Type hydralazine 25 mg tablet 25 mg PO TID #90 tab 01/28/19 02/21/20 Rx folic acid 1 mg PO QAM #30 tab 04/06/19 02/21/20 Rx apixaban 2.5 mg tablet 2.5 mg PO BID #60 tab 05/23/19 02/21/20 Rx sodium bicarbonate 650 mg tablet 650 mg PO BID #180 tab 05/30/19 02/21/20 Rx fluticasone furoate 200 1 puffs INH DAILY #60 ea 06/06/19 02/21/20 Rx mcg-vilanterol 25 mcg/dose inhalation powder aspirin 81 mg PO DAILY 07/14/19 02/21/20 History betamethasone valerate 0.1 % 1 appln TOP BID #45 gm 08/09/19 02/21/20 Rx topical ointment carvedilol 25 mg tablet 25 mg PO BID #60 tab 08/11/19 02/21/20 Rx furosemide 40 mg PO DAILY 09/07/19 02/21/20 History levothyroxine 175 mcg tablet 175 mcg PO DAILY #90 tab 09/09/19 02/21/20 Rx amlodipine 5 mg PO DAILY 02/16/20 02/21/20 History sevelamer carbonate 800 mg PO TIDM 02/16/20 02/21/20 History acetaminophen 1,000 mg PO TID 7 Days #42 tab 02/18/20 02/21/20 Rx lidocaine 1 patch TRANSDERMAL QAM #10 ea 02/18/20 02/21/20 Rx oxycodone 10 mg PO Q6H PRN #10 tab 02/18/20 02/21/20 Rx Past Med/Surg History Medical History Accidental fall Anemia associated with chronic renal failure Asthma Atrial fibrillation Dx 02/2019. On Eliquis. Per Dr. Grimaldo 03/03/19 office note, suspect afib was present for a long time given significant biatrial dilatation. Cardiomyopathy Systolic CHF, EF 25-30% on echo 03/28/19 with global HK. Per cardiology consult 02/14/19, cannot exlude ischemic etiology, but may also be 2/2 prolonged tachycardia. Euvolemic on exam at PAT 09/07/19. Carotid artery stenosis without cerebral infarction < 50% bilateral carotid stenosis per 2018 imaging (*No imaging in our records but this was noted by PCP at 06/2019 office visit) Cognitive impairment Daughter, Linda Dupont, primary life insurance specialist Depression Diabetes diet controlled ESRD (end stage renal disease) on dialysis pt to do dialysis MWF in [facility] but has been refusing to go and according to the daughter she has not been there for about the last 2 weeks. Hypertension Hyponatremia 2/2 SIADH Hypothyroidism Osteopenia Proteinuria Psoriasis Secondary hyperparathyroidism SIADH (syndrome of inappropriate ADH production) Systolic CHF EF 25-30% per 03/2019 echo Surgical History H/O colonoscopy History of dilatation and curettage History of vascular access device RIGHT UPPER CHEST PERMACATH FOR DIALYSIS 04/01/19 S/P arteriovenous (AV) fistula creation Jul 2019 Family History Father Heart disease Mother Diabetes Heart disease Hypertension Daughter Breast cancer Brother Hypertension Grandmother (Maternal) Family hx of colon cancer Denies family history of Ovarian cancer Colorectal cancer Colonic polyp Social History Smoking Status: Never smoker Second Hand Exposure: No; Do You Dip or Chew Tobacco: No; Tobacco Cessation Education Requested by Patient: No Hx Alcohol Use: No Hx Substance Use: No Preferred Language: Pashto Communication Ability: Effective Shelf Stocker Required: No Beliefs That Will Affect Care: None marital status: Single Current Living Situation: Alone current occupational status: retired current occupation: [employer] Other Information That Helps Us Care for You: No Feels Safe at Home: Yes Safety Concerns: Feels Safe At This Time Review of Systems Review of Systems: The patient denies chest pain, palpitations, shortness of breath, dyspnea on exertion, cough, lower extremity swelling, sore throat, fevers, chills, sweats, nausea, vomiting, diarrhea , constipation, abdominal pain, pelvic pain, blood in urine or stool, dysuria, urinary frequency or urgency, lightheadedness, dizziness, headache, memory loss, loss of consciousness, rash, abnormal bruising or bleeding, focal or generalized weakness, numbness or tingling in arms, neck pain, or night sweats. The review of systems is otherwise negative other than for that already noted above, and at least 10 systems have been reviewed. Physical Exam Physical Exam: The patient is awake, alert and oriented 3, well developed and well nourished, normocephalic and atraumatic, lying in bed and in no acute distress. HEENT--PERRL, EOMI, mucous membranes and oropharynx normal. Neck--supple. No JVD. No bruits. Thyroid normal, trachea midline, no adenopathy. Heart--normal S1 and S2. No murmurs, rubs or gallops. Lungs--clear bilaterally, no respiratory distress, no accessory muscle use. Abdomen--normal bowel sounds and soft. Nontender. Nondistended. Extremities--no cyanosis or clubbing. No edema. Dermatologic--normal skin turgor, normal color, no abnormal lymph nodes, no rash. Neurologic--cranial nerves II through XII grossly intact. Rheumatologic--normal range of motion. Psychiatric--normal affect. Results & Data Results & Data ([facility]) Vital Signs (Past 12 Hours) Vital Signs Temp Pulse Pulse Resp BP BP Pulse Ox 02/22/20 00:44 74 16 149/81 H 94 02/21/20 23:45 97.7 F 73 16 177/92 H 94 02/21/20 22:31 74 18 159/90 H 96 02/21/20 22:30 69 14 96 02/21/20 22:02 72 19 96 02/21/20 22:01 72 13 178/78 H 96 02/21/20 22:00 83 17 96 02/21/20 21:30 78 21 182/87 H 98 02/21/20 21:00 72 21 176/94 H 98 02/21/20 20:30 66 15 172/86 H 95 02/21/20 20:00 80 16 178/90 H 97 02/21/20 19:30 85 19 187/114 H 96 02/21/20 19:01 75 18 211/108 H 98 02/21/20 19:00 84 88 15 211/108 H 99 02/21/20 18:43 86 16 223/123 H 96 02/21/20 16:41 78 17 192/108 H 96 02/21/20 16:40 83 18 206/101 H 02/21/20 16:30 97.7 F 78 12 192/108 H 94 Laboratory Results Laboratory Results WBC 5.63 K/uL (4.8-10.8) 02/21/20 16:59 RBC 4.37 M/uL (4.2-5.4) 02/21/20 16:59 Hgb 14.0 g/dL (12.0-16.0) 02/21/20 16:59 Hct 42.8 % (37-47) 02/21/20 16:59 MCV 97.9 fL (80-100) 02/21/20 16:59 MCH 32.0 pg (25-34) 02/21/20 16:59 MCHC 32.7 g/dL (32-36) 02/21/20 16:59 RDW Std Deviation 50.5 fL (36.4-46.3) H 02/21/20 16:59 RDW Coeff of Carlo 14.2 % (11.5-14.5) 02/21/20 16:59 Plt Count 216 K/uL (130-400) 02/21/20 16:59 MPV 10.6 fL (7.4-10.4) H 02/21/20 16:59 Immature Gran % (Auto) 0.7 % 02/21/20 16:59 Neut % (Auto) 66.0 % 02/21/20 16:59 Lymph % (Auto) 17.9 % 02/21/20 16:59 [place] % (Auto) 9.9 % 02/21/20 16:59 Eos % (Auto) 4.8 % 02/21/20 16:59 Baso % (Auto) 0.7 % 02/21/20 16:59 Neut # (Auto) 3.71 K/uL (1.4-6.5) 02/21/20 16:59 Lymph # (Auto) 1.01 K/uL (1.2-3.4) L 02/21/20 16:59 [place] # (Auto) 0.56 K/uL (0.11-0.59) 02/21/20 16:59 Eos # (Auto) 0.27 K/uL (0-0.5) 02/21/20 16:59 Baso # (Auto) 0.04 K/uL (0-0.2) 02/21/20 16:59 Immature Gran # (Auto) 0.04 K/uL (0.00-0.02) H 02/21/20 16:59 PT 10.3 Seconds (9.0-12.0) 02/21/20 18:15 INR 1.0 (0.9-1.1) 02/21/20 18:15 APTT 31.3 Seconds (21.0-31.0) H 02/21/20 18:15 PTT Ratio 1.1 02/21/20 18:15 Sodium 134 mmol/L (136-145) L 02/21/20 17:01 Potassium 4.4 mmol/L (3.5-5.1) 02/21/20 17:01 Chloride 101 mmol/L (98-107) 02/21/20 17:01 Carbon Dioxide 25 mmol/L (21-32) 02/21/20 17:01 Anion Gap 9.0 (3-11) 02/21/20 17:01 BUN 62 mg/dl (7-18) H 02/21/20 17:01 Creatinine 3.34 mg/dl (0.6-1.2) H 02/21/20 17:01 Est Cr Clr Drug Dosing 12.3 ml/min 02/21/20 17:01 Est GFR ( Amer) 14.5 02/21/20 17:01 Est GFR (Non-Af Amer) 12.5 02/21/20 17:01 BUN/Creatinine Ratio 18.5 (10-20) 02/21/20 17:01 Glucose 104 mg/dl (70-99) H 02/21/20 17:01 POC Glucose 105 mg/dl (70-99) H 02/21/20 17:01 Calcium 9.5 mg/dl (8.5-10.1) 02/21/20 17:01 Magnesium 2.9 mg/dl (1.8-2.4) H 02/21/20 17:01 Troponin I < 0.015 ng/ml (0-0.045) 02/21/20 17:01 TSH 22.200 uIu/ml (0.300-4.500) H 02/21/20 17:01 Free T4 1.45 ng/dl (0.8-1.6) 02/21/20 17:01 Specimen Hemolysis 02/21/20 17:01 Salicylates < 1.7 mg/dl (2.8-20) L 02/21/20 16:59 Acetaminophen < 2 ug/ml (10-30) L 02/21/20 16:59 Ethyl Alcohol mg/dL < 3.0 mg/dl (0-3) 02/21/20 16:59 RPR Nonreactive (Nonreactive) 02/21/20 18:15 Diagnostic Findings [place], [place] [phone] CT Scan Report Patient: SHYAM DANGELO Date: 02/21/20 MR#: [id number]: [id number] [facility] Acct ID:[id number]: [address] Date: 1940[facility] Zip: [place] [id number] Age: 79Location: ED Sex: F Room/Bed: Att Phy:Diagnosis: OVERDOSE, AMS, Yanni Phy: Enzo [facility], MDService Date: 02/21/20 Fam Phy:Interpreting Phy: Marek Garcia MD Admit Phy: Ordering Phy: Shelton Cuellar MD cc: ~ CT head/brain wo con CLINICAL HISTORY: Acute change in mental status COMPARISON STUDY: 09/14/2016 TECHNIQUE: Axial CT of the brain is performed from the vertex to the skull b ase. IV contrast was not administered for this examination. A dose lowering technique was utilized adhering to the principles of ALARA. CT DOSE: 537.48 mGy.cm FINDINGS: No intra or extra-axial mass lesions are visualized. There is no CT evidence of acute cortical infarction. There is no evidence of midline shift. There is no acute hemorrhage. No calvarial fractures are visualized. There are patchy white matter hypodensities likely on a small vessel basis. There is no evidence of pathologic ventricular dilatation. There is no evidence of acute sinusitis IMPRESSION: No acute intracranial findings ACT 112: Negative or not required by law. Electronically signed by: Marek Garcia M.D. 02/21/2020 5:29 PM Dictated: 02/21/20 1725 Transcribed: 02/21/201724 [place], [place] [phone] XRay Report Patient: SHYAM DANGELO Date: 02/21/20 MR#: [id number]: [id number] [facility] Acct ID:[id number]: [address] Date: 1940[facility] Zip: [place] [address] Age: 79Location: ED Sex: F Room/Bed: Att Phy:Diagnosis: OVERDOSE, AMS, Yanni Phy: Enzo [facility], MDService Date: 02/21/20 [facility] Phy:Interpreting Phy: Marek Garcia MD Admit Phy: Ordering Phy: Shelton Cuellar MD cc: ~ XR chest 1V portable CLINICAL HISTORY: Acute change in mental status COMPARISON STUDY: July 2019 FINDINGS: The right-sided central venous catheter has been removed. The heart is enlarged. There is no failure. There is no focal pulmonary consolidation. No pleural effusions.[ IMPRESSION: Cardiomegaly. No acute findings. ACT 112: Negative or not required by law. Electronically signed by: Marek Garcia M.D. 02/21/2020 5:55 PM Dictated: 08/18/20 1754 Transcribed: 02/21/201753 [place], [place] [phone] XRay Report Patient: SHYAM DANGELO Date: 02/21/20 MR#: [id number]: [id number] [facility] Acct ID:[id number]: [address] [facility] Zip: [place] [address] Age: 79Location: ED Sex: F Room/Bed: Att Phy:Diagnosis: OVERDOSE, AMS, Yanni Phy: Enzo [facility], MDService Date: 02/21/20 Fam Phy:Interpreting Phy: Marek Garcia MD Admit Phy: Ordering Phy: Shelton Cuellar MD cc: ~ XR hip LT 2V w pelvis CLINICAL HISTORY: L hip pain COMPARISON: February 16, 2020 DISCUSSION: There are extensive vascular calcifications present. The bones are osteopenic. No fractures or dislocations are visualized. There are mild degenerative changes. No destructive lesions are evident. IMPRESSION: 1. No acute fractures 2. Mild degenerative change 3. Extensive vascular calcification ACT 112: Negative or not required by law. Electronically signed by: Marek Garcia M.D. 02/21/2020 5:56 PM Dictated: 02/21/201754 Transcribed: 02/21/201754 Code Status & VTE Plan Code Status Full code VTE Prophylaxis Plan VTE Prophylaxis will be ordered: Yes PG Care Time/CCT Total # of Minutes Spent Total Time Spent with Patient: Total time spent is greater than 50% in coordination of care (as documented) at patient's floor/unit and/or counseling patient: Coding Level of Care Code 26261 OBS Care - Level 3 Diagnoses Hip pain, left M25.552 CKD (chronic kidney disease) N18.9 HFrEF (heart failure with reduced ejection fraction) I50.20 Atrial fibrillation I48.91 Hypothyroidism E03.9 Hypothyroidism type: acquired Hypertension I10 Opiate abuse, episodic F11.10 (1) Hypothyroidism Hypothyroidism type: acquired Qualified Code(s): E03.9 - Hypothyroidism, unspecified
[2020-02-22] MEDS: LEVOTHYROXINE SODIUM 175 MCG TABLET PO SCH (06:21)
[2020-02-22 06:43] LABS: Appearance Urine Clear (Clear); Bacteria Urine Automated Negative (Negative); Bilirubin Urine Negative (Negative); Blood Urine Negative (Negative); Color Urine Yellow; Glucose Urine UA Negative (Negative); Ketones Urine Negative (Negative); Leukocyte Esterase Urine Negative (Negative); Nitrite Urine Negative (Negative); Protein Urine 3+ (Negative); RBC Urine Automated 0-4 /hpf (0-4); Specific Gravity Urine 1.012 (1.000-1.030); Urobilinogen Urine Negative (Negative); pH Urine 5.5 (4.5-7.5)
[2020-02-22 07:02] LABS: Amphetamines+Metham, Urine Neg (Neg); Barbiturates, Urine Neg (Neg); Benzodiazepine, Urine Neg (Neg); Cocaine, Urine Neg (Neg); MDMA (Ecstacy), Urine Neg (Neg); Methadone, Urine Neg (Neg); Opiate, Urine Neg (Neg); Phencyclidine, Urine Neg (Neg)
[2020-02-22] MEDS: SEVELAMER HCL 800 MG TABLET PO SCH ×3 (08:34→17:36)
[2020-02-22] MEDS: AMLODIPINE BESYLATE 5 MG TAB PO SCH (08:37)
[2020-02-22] MEDS: ASPIRIN 81 MG ECTAB PO SCH (08:38)
[2020-02-22] MEDS: FUROSEMIDE 40 MG TAB PO SCH (08:38)
[2020-02-22] MEDS: FLUTICASONE/VILANTEROL 200/25MCG 14 PUFFS/INHALER INH SCH (08:39)
[2020-02-22] MEDS: LIDOCAINE 5% 1 PATCH TD SCH (08:39)
[2020-02-22] MEDS: ACETAMINOPHEN 500 MG TAB PO SCH ×3 (08:39→20:22)
[2020-02-22] MEDS: FOLIC ACID 1 MG TAB PO SCH (08:40)
--- NOTE | 2020-02-22 12:04 | Electrocardiogram Report ---
Test Reason : Blood Pressure : / mmHG Vent. Rate : 071 BPM Atrial Rate : 104 BPM P-R Int : 000 ms QRS Dur : 096 ms QT Int : 422 ms P-R-T Axes : 000 -44 119 degrees QTc Int : 458 ms Atrial fibrillation with premature ventricular or aberrantly conducted complexes Left axis deviation Left ventricular hypertrophy with repolarization abnormality Abnormal ECG When compared with ECG of 26-MAR-2019 06:33, No significant change was found Confirmed by Cayetano Sheppard ([id number]) on 02/22/2020 12:04:30 PM Referred By: REFERRED SELF Confirmed By:Cayetano Sheppard
[2020-02-22] MEDS: BETAMETHASONE VAL 0.1% CR 15 GM EXT SCH ×2 (12:47→20:22)
--- NOTE | 2020-02-22 12:53 | History & Physical Bridge Note ---
Date of Service February 22, 2020 History & Physical Bridge Note Patient seen and examined today. More comfortable during my interview; patient sleeping initially. Seen by firer boiler for her heels, and they report - Continue plan of care as per admission physican's note - Will add ultrasound ABIs to legs to investigate arterial insufficiency
--- NOTE | 2020-02-22 15:29 | Ultrasound Report ---
US ankle/brachial index comp CLINICAL HISTORY: roof truss detailer recommendation due to poor lower extremity pulses COMPARISON STUDY: None. FINDINGS: The right ankle-brachial index measured with the posterior tibial artery was 0.99 and the d orsalis pedis artery is 1.07. The left ankle-brachial index calculi with the dorsalis pedis artery wa s 0.71. The posterior tibial artery on the left was not identified due to the patient's overlying ban dages. IMPRESSION: 1. Normal right ankle-brachial index. 2. The left ankle-brachial index measures 0.71. ACT 112: Negative or not required by law. Electronically signed by: Johnathon Bonilla M.D. 02/22/2020 3:28 PM
[2020-02-23] MEDS: LEVOTHYROXINE SODIUM 175 MCG TABLET PO SCH (05:43)
[2020-02-23] MEDS: BETAMETHASONE VAL 0.1% CR 15 GM EXT SCH ×2 (05:44→20:42)
[2020-02-23] MEDS: LIDOCAINE 5% 1 PATCH TD SCH (08:30)
[2020-02-23] MEDS: FLUTICASONE/VILANTEROL 200/25MCG 14 PUFFS/INHALER INH SCH (08:30)
[2020-02-23] MEDS: ACETAMINOPHEN 500 MG TAB PO SCH ×3 (08:31→20:40)
[2020-02-23] MEDS: APIXABAN 2.5 MG TAB PO SCH ×2 (08:31→20:40)
[2020-02-23] MEDS: AMLODIPINE BESYLATE 5 MG TAB PO SCH (08:31)
[2020-02-23] MEDS: SEVELAMER HCL 800 MG TABLET PO SCH ×3 (08:31→18:19)
[2020-02-23] MEDS: FUROSEMIDE 40 MG TAB PO SCH (08:31)
[2020-02-23] MEDS: SODIUM BICARBONATE 650 MG TAB PO SCH ×2 (08:31→20:40)
[2020-02-23] MEDS: ASPIRIN 81 MG ECTAB PO SCH (08:31)
[2020-02-23] MEDS: FOLIC ACID 1 MG TAB PO SCH (08:32)
[2020-02-23] MEDS: carvediloL 25 MG TAB PO SCH ×2 (08:32→20:41)
--- NOTE | 2020-02-23 14:08 | Hospitalist Progress Note ---
Date of Service February 23, 2020 Assessment & Plan (1) Hip pain, left: Patient was advised at last admission to go to [facility] for rehab but she refused Patient agrees now that she needs inpatient rehab and health and social care teacher will consult to help make arrangements. Consulted PT/OT (2) CKD (chronic kidney disease): Stage V. Patient had been on hemodialysis, which was stopped on 11/22, and reportedly has been doing acceptably well since that time. She was seen by Dr. Hassan during last hospitalization, who recommended patient follow-up with Dr. Parikh in the outpatient setting. Continue folic acid 1 mg p.o. daily, sevelamer 800 mg p.o. 3 times daily with meals, and sodium bicarbonate 650 mg p.o. twice daily. No current plans to restart dialysis (3) HFrEF (heart failure with reduced ejection fraction): HFrEF/atrial fibrillation/hypertension-chronic Continue carvedilol 25 mg p.o. twice daily, furosemide 40 mg p.o. daily, hydralazine 25 mg p.o. 3 times daily, amlodipine 5 mg p.o. daily, aspirin 81 mg p.o. daily and apixaban 2.5 mg p.o. twice daily (4) Atrial fibrillation: Continue current medical management. (5) Hypothyroidism: Continue levothyroxine 125 mcg daily (6) Hypertension: Continue current medical management. (7) Opiate abuse, episodic: Patient's altered mental status on admission was most likely due to excessive use of prescribed oxycodone. Resolved (8) Toxic encephalopathy: From excessive opioid intake. Now resolved. Admission and Anticipated Discharge Date Admission Date: February 21, 2020 Subjective Alert. No complaints. She is awaiting placement at [facility]. BUN 62 and creatinine 3.3. I am not aware of any plans to restart dialysis at this point. COVID screening test is ordered and pending. Review of Systems Review of Systems: Constitutional-no fever or chills ENT-no blurred vision, no double vision, no epistaxis, no sore throat Respiratory-no cough, no wheezing, no shortness of breath Cardiac-no palpitations, no chest pain, no syncope GI-no nausea, vomiting, diarrhea, melena, hematochezia -no urinary retention, no urinary incontinence, no dysuria, no hematuria Musculoskeletal-no joint pain, no muscle tenderness Skin-no bruising, no rashes, no pruritus. Bilateral heel ulcerations appear chronic Neuro-no isolated weakness, no paresthesia, no weakness Psych-no depression, no anxiety Physical Exam Physical Exam: General-alert and oriented x3, no fevers, no chills HEENT-head atraumatic and normocephalic, TMs intact bilaterally, pupils equal and reactive to light, extraocular muscles intact Neck-no lymphadenopathy or thyromegaly, trachea midline Chest-clear to auscultation percussion. No rales wheezing or rhonchi Cardiac-regular rate and rhythm, normal S1 and S2, no murmurs Abdomen-normal bowel sounds, nontender, no hepatosplenomegaly Extremities-no cyanosis, clubbing, or edema. Bilateral heel ulcerations appear chronic Neuro-cranial nerves II through XII intact, motor and sensory function within normal limits, strength symmetrical 5/5, no focal deficits Psych-normal affect, normal mood Results & Data Results & Data ([facility]) Vital Signs (Past 12 Hours) Vital Signs Temp Pulse Resp BP Pulse Ox 02/23/20 07:08 37.1 C 72 16 130/73 93 Laboratory Results 02/21/20 16:59 02/21/20 17:01 PG Care Time/CCT Total # of Minutes Spent Total Time Spent with Patient: Total time spent is greater than 50% in coordination of care (as documented) at patient's floor/unit and/or counseling patient: Coding Level of Care Code 77190 Subseq Hosp Care Lvl 3 Diagnoses Hip pain, left M25.552 CKD (chronic kidney disease) N18.9 HFrEF (heart failure with reduced ejection fraction) I50.20 Atrial fibrillation I48.91 Hypothyroidism E03.9 Hypothyroidism type: acquired Hypertension I10 Opiate abuse, episodic F11.10 Toxic encephalopathy G92 (1) Hypothyroidism Hypothyroidism type: acquired Qualified Code(s): E03.9 - Hypothyroidism, unspecified
[2020-02-24] MEDS: ASPIRIN 81 MG ECTAB PO SCH (05:20)
[2020-02-24] MEDS: LEVOTHYROXINE SODIUM 175 MCG TABLET PO SCH (05:22)
[2020-02-24] MEDS: BETAMETHASONE VAL 0.1% CR 15 GM EXT SCH ×2 (05:31→20:55)
[2020-02-24 06:57] LABS: BUN Creatinine Ratio 18.5 (10-20); Calcium 8.5 mg/dl (8.5-10.1); Creatinine Clr Calc Pharmacy 10.7 ml/min; Est GFR (African American) 12.3; Est GFR (Non-African American) 10.6; Potassium 4.6 mmol/L (3.5-5.1)
[2020-02-24] MEDS: APIXABAN 2.5 MG TAB PO SCH ×2 (09:19→20:56)
[2020-02-24] MEDS: SEVELAMER HCL 800 MG TABLET PO SCH ×3 (09:19→17:23)
[2020-02-24] MEDS: SODIUM BICARBONATE 650 MG TAB PO SCH ×2 (09:19→20:56)
[2020-02-24] MEDS: AMLODIPINE BESYLATE 5 MG TAB PO SCH (09:19)
[2020-02-24] MEDS: FLUTICASONE/VILANTEROL 200/25MCG 14 PUFFS/INHALER INH SCH (09:19)
[2020-02-24] MEDS: carvediloL 25 MG TAB PO SCH ×2 (09:19→20:56)
[2020-02-24] MEDS: FOLIC ACID 1 MG TAB PO SCH (09:19)
[2020-02-24] MEDS: FUROSEMIDE 40 MG TAB PO SCH (09:19)
[2020-02-24] MEDS: ACETAMINOPHEN 500 MG TAB PO SCH ×3 (09:20→20:56)
[2020-02-24] MEDS: LIDOCAINE 5% 1 PATCH TD SCH (09:22)
--- NOTE | 2020-02-24 12:07 | Hospitalist Progress Note ---
Date of Service February 24, 2020 Assessment & Plan (1) Hip pain, left: Patient was advised at last admission to go to [facility] for rehab but she refused Patient agrees now that she needs inpatient rehab and social security benefits interviewer will consult to help make arrangements. Consulted PT/OT. Anticipate discharge to [facility] tomorrow, February 24 (2) CKD (chronic kidney disease): Stage V. Patient had been on hemodialysis, which was stopped on 11/22, and reportedly has been doing acceptably well since that time. She was seen by Dr. Hassan during last hospitalization, who recommended patient follow-up with Dr. Parikh in the outpatient setting. Continue folic acid 1 mg p.o. daily, sevelamer 800 mg p.o. 3 times daily with meals, and sodium bicarbonate 650 mg p.o. twice daily. No current plans to restart dialysis (3) HFrEF (heart failure with reduced ejection fraction): HFrEF/atrial fibrillation/hypertension-chronic Continue carvedilol 25 mg p.o. twice daily, furosemide 40 mg p.o. daily, hydralazine 25 mg p.o. 3 times daily, amlodipine 5 mg p.o. daily, aspirin 81 mg p.o. daily and apixaban 2.5 mg p.o. twice daily (4) Atrial fibrillation: Continue current medical management. (5) Hypothyroidism: Continue levothyroxine 125 mcg daily (6) Hypertension: Continue current medical management. (7) Opiate abuse, episodic: Patient's altered mental status on admission was most likely due to excessive use of prescribed oxycodone. Resolved (8) Toxic encephalopathy: From excessive opioid intake. Now resolved. Admission and Anticipated Discharge Date Admission Date: February 23, 2020 Subjective Alert and oriented. No complaints. Anticipate discharge to [facility] tomorr ow. She continues to receive treatment to bilateral heels for the chronic ulcerations. BUN 71 and creatinine 3.8. I am not aware of any plan to restart hemodialysis at this time. Toxic encephalopathy from oxycodone has resolved Review of Systems Review of Systems: Constitutional-no fever or chills ENT-no blurred vision, no double vision, no epistaxis, no sore throat Respiratory-no cough, no wheezing, no shortness of breath Cardiac-no palpitations, no chest pain, no syncope GI-no nausea, vomiting, diarrhea, melena, hematochezia -no urinary retention, no urinary incontinence, no dysuria, no hematuria Musculoskeletal-no joint pain, no muscle tenderness Skin-no bruising, no rashes, no pruritus. Chronic bilateral heel ulcerations noted Neuro-no isolated weakness, no paresthesia, no weakness Psych-no depression, no anxiety Physical Exam Physical Exam: General-alert and oriented x3, no fevers, no chills HEENT-head atraumatic and normocephalic, TMs intact bilaterally, pupils equal and reactive to light, extraocular muscles intact Neck-no lymphadenopathy or thyromegaly, trachea midline Chest-clear to auscultation percussion. No rales wheezing or rhonchi Cardiac-regular rate and rhythm, normal S1 and S2, no murmurs Abdomen-normal bowel sounds, nontender, no hepatosplenomegaly Extremities-no cyanosis, clubbing, or edema. Chronic bilateral heel ulcerations Neuro-cranial nerves II through XII intact, motor and sensory function within normal limits, no focal deficits Psych-normal affect, normal mood Results & Data Results & Data ([facility]) Vital Signs (Past 12 Hours) Vital Signs Temp Pulse Resp BP Pulse Ox 02/24/20 07:08 37.1 C 73 16 146/65 H 96 Laboratory Results 02/21/20 16:59 02/24/20 05:24 PG Care Time/CCT Total # of Minutes Spent Total Time Spent with Patient: Total time spent is greater than 50% in coordination of care (as documented) at patient's floor/unit and/or counseling patient: Coding Level of Care Code 83397 Subseq Hosp Care Lvl 2 Diagnoses Hip pain, left M25.552 CKD (chronic kidney disease) N18.9 HFrEF (heart failure with reduced ejection fraction) I50.20 Atrial fibrillation I48.91 Hypothyroidism E03.9 Hypothyroidism type: acquired Hypertension I10 Opiate abuse, episodic F11.10 Toxic encephalopathy G92 (1) Hypothyroidism Hypothyroidism type: acquired Qualified Code(s): E03.9 - Hypothyroidism, unspecified
[2020-02-25] MEDS: LEVOTHYROXINE SODIUM 175 MCG TABLET PO SCH (05:36)
[2020-02-25 06:55] LABS: BUN Creatinine Ratio 20.3 (10-20); Calcium 8.6 mg/dl (8.5-10.1); Creatinine Clr Calc Pharmacy 11.7 ml/min; Est GFR (African American) 13.7; Est GFR (Non-African American) 11.9; Potassium 4.2 mmol/L (3.5-5.1)
[2020-02-25] MEDS: SEVELAMER HCL 800 MG TABLET PO SCH ×2 (09:54→13:06)
[2020-02-25] MEDS: FLUTICASONE/VILANTEROL 200/25MCG 14 PUFFS/INHALER INH SCH (09:55)
[2020-02-25] MEDS: carvediloL 25 MG TAB PO SCH (09:56)
[2020-02-25] MEDS: APIXABAN 2.5 MG TAB PO SCH (09:57)
[2020-02-25] MEDS: ASPIRIN 81 MG ECTAB PO SCH (09:57)
[2020-02-25] MEDS: FOLIC ACID 1 MG TAB PO SCH (09:58)
[2020-02-25] MEDS: FUROSEMIDE 40 MG TAB PO SCH (09:58)
[2020-02-25] MEDS: AMLODIPINE BESYLATE 5 MG TAB PO SCH (09:59)
[2020-02-25] MEDS: LIDOCAINE 5% 1 PATCH TD SCH (09:59)
[2020-02-25] MEDS: ACETAMINOPHEN 500 MG TAB PO SCH (10:00)
[2020-02-25] MEDS: SODIUM BICARBONATE 650 MG TAB PO SCH (10:00)
[2020-02-25] MEDS: BETAMETHASONE VAL 0.1% CR 15 GM EXT SCH (10:07)
--- NOTE | 2020-02-25 12:30 | Discharge Summary ---
Date of Service February 25, 2020 Admission HPI Per Admitting Provider The patient is a 79-year-old female with a past medical history including episodic opiate abuse, noncompliance with medical regimen, CKD, hypertension, pulmonary hypertension, mitral gravitation, HFrEF, alcohol abuse, vitamin D deficiency, subclavian artery stenosis, anxiety, asthma, carotid artery stenosis, cognitive impairment, depression, diabetes mellitus, secondary hyperparathyroidism, atrial fibrillation, ESRD on dialysis, cardiomyopathy, psoriasis, hypothyroidism and SIADH. She is most recently admitted to [facility] from 02/15-02/17 for left hip pain. She was advised upon discharge that she should go to rehab at [facility], however, patient preferred to go home. She now feels that she is unable to ambulate well at home, and would like to be sent to [facility] for rehab. There is reportedly also a discrepancy in the number of pills of oxycodone that she had been prescribed and there were none remaining in the bottle, suggesting that she used too many pain pills too fast. Admission Exam Per Admitting Provider Physical Exam The patient is awake, alert and oriented 3, well developed and well nourished, normocephalic and atraumatic, lying in bed and in no acute distress. HEENT--PERRL, EOMI, mucous membranes and oropharynx normal. Neck--supple. No JVD. No bruits. Thyroid normal, trachea midline, no adenopathy. Heart--normal S1 and S2. No murmurs, rubs or gallops. Lungs--clear bilaterally, no respiratory distress, no accessory muscle use. Abdomen--normal bowel sounds and soft. Nontender. Nondistended. Extremities--no cyanosis or clubbing. No edema. Dermatologic--normal skin turgor, normal color, no abnormal lymph nodes, no rash. Neurologic--cranial nerves II through XII grossly intact. Rheumatologic--normal range of motion. Psychiatric--normal affect. Principal Diagnosis Hip pain, metabolic encephalopathy Discharge Exam GENERAL : No acute distress EYES: No icterus, gaze conjugate NOSE: No evidence of epistaxis MOUTH: No lesions or candidiasis NECK: Supple LUNGS: CTA B/L, no wheezes, rales or rhonchi HEART: Regular, rate controlled ABDOMEN: Soft, NT, ND, BS Present EXTREMITIES: Trace bilateral LE edema, pedal pulses intactAnd equal bilaterally. NEURO: A&OX3.Able to provide full history. Able to discuss disposition. Discharge Data Allergies Allergy/AdvReac Type Severity Reaction Status Date / Time doxycycline Allergy Unknown Hives Verified 02/16/20 06:38 labetalol Allergy Unknown tired and Verified 02/16/20 06:38 depressed lorazepam Allergy Unknown "SQUIRRELLY Verified 02/16/20 06:38 " Pork/Porcine Containing Allergy Unknown tired and Verified 02/16/20 06:38 Products depression tetracycline Allergy Unknown unknown(not Verified 02/16/20 06:38 100% sure if she's allergic to it) tramadol AdvReac Unknown dizzy, Verified 02/16/20 06:38 emesis Consultations 02/21/20 19:47 ED Decision to Admit Stat 02/21/20 23:42 Consult Case Management - Discharge Planning Routine Ordered Studies 02/21/20 16:48 CT head/brain wo con Stat 02/22/20 15:00 US ankle/brachial index comp Routine Hospital Course (1) Hip pain, left: Patient with hip pain secondary to ambulatory dysfunction Will benefit from rehab Approved to go to [facility] Anticipated discharge today Pain is improved. Oxycodone prescription changed from 10 mg every 6 hours to 5 mg every 6 hours Nonweightbearing to bilateral lower extremities except for bedside commode privileges Should wear surgical boots bilaterally with transfer (2) Metabolic encephalopathy: Secondary to opioid abuse Reduce oxycodone dose from 10 mg every 6 hours to 5 mg every 6 hours Resolved at time of discharge (3) CKD (chronic kidney disease): Stage V chronic kidney disease Was previously on dialysis but this stopped in November 2019 Outpatient follow-up with Dr. Hart Continue folic acid 1 mg p.o. daily as well as Sevelamar, and sodium bicarbonate (4) HFrEF (heart failure with reduced ejection fraction): HFrEF/atrial fibrillation/hypertension-chronic Continue carvedilol 25 mg p.o. twice daily, furosemide 40 mg p.o. daily, hydralazine 25 mg p.o. 3 times daily, amlodipine 5 mg p.o. daily, aspirin 81 mg p.o. daily and apixaban 2.5 mg p.o. twice daily (5) Atrial fibrillation: Continue with anticoagulation with apixaban Continue cardiac meds (6) Hypothyroidism: Continue levothyroxine (7) Hypertension: Continue amlodipine and furosemide (8) ESRD (end stage renal disease) on dialysis: Previously on dialysis. This was discontinued in November. No plans to resume dialysis at this time Continue to follow with Dr. Hart in the outpatient office (9) Diabetes: Diet controlled Hemoglobin A1c 5.0 02/17/20 Total Time Total Time Spent Total Time Spent (In Minutes): 45 minutes Total Time Includes: Examination of the Patient, Medication Reconciliation, Communication With Other Providers and Other (Discussed with case management confirming transfer) Discharge Plan Discharge Items Patient Disposition: Transfer Long Term Fac Reason For Visit: HIP PAIN, AMBULATORY DYSFUNCTION Discharge Diagnosis: Hip pain,Metabolic encephalopathy Activity: Resume your previous activity Lifting: Gradually increase as tolerated Bathing: No limitations Sexual Activity: When tolerated Exercise/Sports: Gradually increase as tolerated Weightbearing Comment: NWB B/L LEs Except for BSC privileges Non-emergency contact: Primary Care Provider Call non-emergency contact if: you have any medication questions, your pain is worsening, your temperature is above 101.5, your wound has increased redness and your wound has increased drainage Follow-up/Referrals: Mike Carrington MD [Primary Care Provider] - Diet: Heart Healthy Addtl Attending Provider Instructions: None Addtl [employer]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 Pending Studies at Discharge: No Stand-Alone Forms: My [facility] Skilled Items Patient informed of condition?: Yes DNR: No Discharge Level of Care: Acute rehab Communicable Disease: No Discharge Prognosis: Improving Lines: None Urinary Catheter: No Medications and DC Order Prescriptions: New oxycodone 5 mg Tablet 5 mg PO Q6H PRN (Reason: pain) Qty: 1 RF: 0 Continued hydralazine 25 mg tablet 25 mg PO TID Qty: 90 RF: 11 Eliquis 2.5 mg tablet 2.5 mg PO BID Qty: 60 RF: 5 sodium bicarbonate 650 mg tablet 650 mg PO BID Qty: 180 RF: 3 Breo Ellipta 200-25 mcg/dose blister with device 1 puffs INH DAILY Qty: 60 RF: 0 levothyroxine 175 mcg tablet 175 mcg PO DAILY Qty: 90 RF: 3 carvedilol 25 mg tablet 25 mg PO BID Qty: 60 RF: 5 betamethasone valerate 0.1 % ointment 1 appln TOP BID Qty: 45 RF: 1 aspirin 81 mg tablet,delayed release (DR/EC) 81 mg PO DAILY RF: 0 sevelamer carbonate 800 mg tablet 800 mg PO TIDM RF: 0 amlodipine 5 mg tablet 5 mg PO DAILY RF: 0 acetaminophen 500 mg Tablet 1,000 mg PO TID 7 Days Qty: 42 RF: 0 lidocaine 5 % Adhesive Patch,Medicated 1 patch transdermal QAM Qty: 10 RF: 0 folic acid 1 mg Tablet 1 mg PO QAM Qty: 30 RF: 0 furosemide 40 mg Tablet 40 mg PO DAILY RF: 0 Discontinued oxycodone 5 mg Tablet 10 mg PO Q6H PRN (Reason: pain) Qty: 10 RF: 0 Discharge Orders: Discharge Order (Routine); Ordered 02/25/20 Ordered By: Luke Moore Admission Data Admit Date/Time: 02/23/20 16:39 Attending Provider: Jake Rg Admit Provider: Mohan Beaver Primary Care Provider: Mike Carrington Other Providers: Tanvir James ; Wenceslao Covington Coding Level of Care Code D/C Day Management >30 mins Diagnoses Hip pain, left M25.552 Metabolic encephalopathy G93.41 CKD (chronic kidney disease) N18.9 HFrEF (heart failure with reduced ejection fraction) I50.20 Atrial fibrillation I48.91 Hypothyroidism E03.9 Hypothyroidism type: acquired Hypertension I10 ESRD (end stage renal disease) on dialysis N18.6; Z99.2 Diabetes E11.9
== END 2020-02-25 13:25 | DRG 917 ==
LOC: 3W 16:32 → ED 16:32 → SUATTDRO 21:24 → 3W 22:58 → SUATTDRO 02-23 16:39

== ENCOUNTER 2020-08-03 13:23 | Inpatient (IN) ==
[2020-08-03] MEDS ORDERED: METOPROLOL TARTRATE 1 MG/ML VIAL IV STA (13:48)
[2020-08-03] MEDS ORDERED: hydrALAZINE HCL 25 MG TAB PO STA (13:58)
[2020-08-03 14:02] LABS: Basophils # (auto) 0.04 K/uL (0-0.2); Basophils % (auto) 0.7 %; Eosinophils # (auto) 0.07 K/uL (0-0.5); Eosinophils % (auto) 1.2 %; Hematocrit (blood only) 35.4 % (37-47); Hemoglobin 11.5 g/dL (12.0-16.0); Immature Granulocytes # (auto) 0.03 K/uL (0.00-0.02); Immature Granulocytes % (auto) 0.5 %; Mean Corpuscular Hemoglobin 31.9 pg (25-34); Mean Corpuscular Hgb Conc 32.5 g/dL (32-36); Mean Corpuscular Volume 98.3 fL (80-100); Mean Platelet Volume 10.5 fL (7.4-10.4); Monocytes # (auto) 0.36 K/uL (0.11-0.59); Monocytes % (auto) 6.1 %; Neutrophils # (auto) 4.37 K/uL (1.4-6.5); Neutrophils % (auto) 74.5 %; Platelet Count 212 K/uL (130-400); RDW Coefficient of Variation 15.5 % (11.5-14.5); RDW Standard Deviation 55.5 fL (36.4-46.3); White Blood Count 5.87 K/uL (4.8-10.8)
[2020-08-03 14:07] LABS: INR 1.1 (0.9-1.1); Partial Thromboplastin Ratio 1.3; Prothrombin Time 11.8 Seconds (9.0-12.0)
--- NOTE | 2020-08-03 14:15 | XRay Report ---
XR chest 1V portable CLINICAL HISTORY: Dyspnea COMPARISON STUDY: 02/21/2020 FINDINGS: The heart is enlarged. There is mild pulmonary vascular congestion. There are bilateral ple ural effusions with associated basilar airspace opacities atelectatic versus infectious/inflammatory. There are postinflammatory calcifications within the right lung apex.[ IMPRESSION: 1. Cardiomegaly and radiographic evidence of mild congestive failure/fluid overload 2. Bilateral pleural effusions with associated basilar airspace opacities ACT 112: Negative or not required by law. Electronically signed by: Marek Garcia M.D. 08/03/2020 2:14 PM
[2020-08-03 14:24] LABS: Alanine Aminotransferase 10 U/L (12-78); Albumin Level 3.6 gm/dl (3.4-5.0); Aspartate Aminotransferase 14 U/L (15-37); BUN Creatinine Ratio 10.5 (10-20); Blood Urea Nitrogen 34 mg/dl (7-18); Calcium 9.2 mg/dl (8.5-10.1); Carbon Dioxide 17 mmol/L (21-32); Chloride 103 mmol/L (98-107); Creatinine Clr Calc Pharmacy 13.4 ml/min; Est GFR (Non-African American) 12.9; Glucose 80 mg/dl (70-99); Magnesium 3.3 mg/dl (1.8-2.4); Potassium 4.3 mmol/L (3.5-5.1); Sodium 134 mmol/L (136-145)
[2020-08-03 14:29] LABS: Albumin Globulin Ratio 0.8 (0.9-2); Alkaline Phosphatase 108 U/L (45-117); Bilirubin,Total 1.1 mg/dl (0.2-1); Globulin 4.5 gm/dl (2.5-4.0); NT Pro B Type Natriuretic Pept > 35000 pg/ml (0-1800); Total Protein 8.1 gm/dl (6.4-8.2); Troponin I < 0.015 ng/ml (0-0.045)
[2020-08-03] MEDS ORDERED: NITROGLYCERIN 2% OINTMENT 30GM TUBE EXT ONE ×2 (15:09→15:24)
[2020-08-03] MEDS ORDERED: FUROSEMIDE 40 MG/4 ML VIAL IV STA (15:26)
--- NOTE | 2020-08-03 15:30 | Electrocardiogram Report ---
Test Reason : Blood Pressure : / mmHG Vent. Rate : 124 BPM Atrial Rate : 326 BPM P-R Int : 000 ms QRS Dur : 096 ms QT Int : 340 ms P-R-T Axes : 000 -47 127 degrees QTc Int : 488 ms Poor data quality, interpretation may be adversely affected Atrial fibrillation Left axis deviation Left ventricular hypertrophy with repolarization abnormality Abnormal ECG When compared with ECG of 21-FEB-2020 16:55, Vent. rate has increased BY 53 BPM Confirmed by Enzo Corral ([id number]) on 08/03/2020 3:30:28 PM Referred By: Confirmed By:Bart Corral
--- NOTE | 2020-08-03 16:21 | History & Physical Report ---
Date of Service August 03, 2020 Assessment & Plan (1) HFrEF (heart failure with reduced ejection fraction): Patient with history of noncompliance and systollic heart function which has left the patient with and EF of 25-30% - Patient hypertensive and volume overloaded on admission. - Diurese with current Meds however increase dose of lasix, add IV bumex for 24 hour goal - Goal will be -1 to 1.5L negative - increase in bilateral pleural effusions from last Xray in february - BNP elevated, no real good baseline to compare - BiPAP to offload workload and volume, decrease afterload and circulating volume as tolerated - Patient states that she was compliant with her medications today and took them this morning. - May add in one time HTN or just increase diuretics for now. - Afterload reducing and volume off is priority. (2) Hypertension: Chronic- no further evidence of end organ damage - Diurese for volume control - Afterload reduce as above If further reduction of chronic BP needed, can either increase hydralazine or add on Isosorbide - Acute need to control would lower MAP to no lower than 90 for tonight - Hydralazine PRN - Cardene drip for 24 hours if needed - Careful not to lower BP to acutely or too low as patient is chronically elevated. (3) Atrial fibrillation: Chronic, currently rate controlled, no ectopy apixaban for chronic anticoagulation no acute needs electrolytes within range, difficult to manage with renal failure and volume status prn lopressor for rate controll (4) Stage 5 chronic kidney disease not on chronic dialysis: Non dialysis, still makes urine and responding to diuretic therapy. - Continue sevelamer and sodium bicarb - renal indices actually look well compared to previous admissions (5) Secondary hyperparathyroidism of renal origin: No acute needs continue calcitriol (6) Mitral regurgitation: Chronic repeat ECHO as been 6 months since last echocardiogram and admission to hospital evaluate valve and heart function, do not feel that admission is directly related to acute valve failure Optimize volume off as above (7) Diabetes: Glucose checks, goal <200 - insulin if needed (8) Hyponatremia: Chronic, full workup completed with SIADH and scondary skilled nursing diuretic therapy. - Normal at this time, follow closely with diuresing (9) Vesicular palmoplantar eczema: Dyshidrotic eczema: - Bilateral with open areas, patient states that home health is still comming to assist with cleansing and dressing - wound care nurse consult placed - will add back daily foot washing, and continue betamethasone ointment and wrap with moist xerform to aid in debridement of scaling. (10) Anxiety: Patient does get anxious with BiPAP mask on - was able to redirect patient and talk her through anxiety of breathing with BiPAP - Patient with little reserve to get through acute stress/anxiety - IF needed may consider precedex with BiPAP tolerance (11) Acute respiratory failure with hypoxia: (12) Hypothyroidism: History of Present Illness Primary Care Provider: Enzo Carrington MD 79-year-old female with a past medical history including episodic opiate abuse, noncompliance with medical regimen, ESRD not on dialysis, hypertension, mitral regurgitation , HFrEF (25-30%) , vitamin D deficiency, secondary hypoparathyroidism, subclavian artery stenosis, anxiety, asthma, carotid artery stenosis, cognitive impairment, depression, diabetes mellitus, secondary hyperparathyroidism, atrial fibrillation, psoriasis, and SIADH. She has CKD stage 5 and used to get her volume and pressures managed through dialysis. Seco ndary to non-compliance with medication and dialysis regime, her PermCath was removed and renal replacement therapy is no longer a treatment option. Patient comes to the emergency room for increased shortness of breath, hypertensive and tachycardia. The patient was placed on BiPAP, diuresed, and given a dose of metoprolol IV, which has controlled her HR, she is moving good air currently on the BiPAP and will wean off. Patient is on on therapeutic anticoagulation for afib with apixaban. Question accuracy of blood pressure with the NIBP on the wrist however she still is hypertensive. Will admit the patient for medication optimization, CHF exacerbation, diurese, wound care consult for her feet, and care coordination. Allergies Allergy/AdvReac Type Severity Reaction Status Date / Time doxycycline Allergy Unknown Hives Verified 08/03/20 14:32 labetalol Allergy Unknown tired and Verified 08/03/20 14:32 depressed lorazepam Allergy Unknown "SQUIRRELLY Verified 08/03/20 14:32 " Pork/Porcine Containing Allergy Unknown tired and Verified 08/03/20 14:32 Products depression tetracycline Allergy Unknown unknown(not Verified 08/03/20 14:32 100% sure if she's allergic to it) tramadol AdvReac Unknown dizzy, Verified 08/03/20 14:32 emesis Home Medications Medication Instructions Recorded Confirmed Type hydralazine 25 mg tablet 25 mg PO TID #90 tab 01/28/19 03/20/20 Rx folic acid 1 mg PO QAM #30 tab 04/06/19 03/20/20 Rx apixaban 2.5 mg tablet 2.5 mg PO BID #60 tab 05/23/19 03/20/20 Rx aspirin 81 mg PO DAILY 07/14/19 03/20/20 History betamethasone valerate 0.1 % 1 appln TOP BID #45 gm 08/09/19 03/20/20 Rx topical ointment levothyroxine 175 mcg tablet 175 mcg PO DAILY #90 tab 09/09/19 03/20/20 Rx amlodipine 5 mg PO DAILY 02/16/20 03/20/20 History sevelamer carbonate 800 mg PO TIDM 02/16/20 03/20/20 History lidocaine 1 patch TRANSDERMAL QAM #10 ea 02/18/20 03/20/20 Rx oxycodone 5 mg PO Q6H PRN #1 tab 02/25/20 03/20/20 Rx acetaminophen 325 mg tablet 650 mg PO Q6H PRN tab 03/05/20 03/20/20 History bumetanide 2 mg tablet 2 mg PO BID 03/06/20 03/06/20 History calcitriol 0.25 mcg capsule 0.25 mcg PO .M-W-F cap 03/06/20 03/06/20 History carvedilol 25 mg tablet 12.5 mg PO BID tab 03/06/20 03/20/20 History fluticasone furoate 200 1 inh INHALATION DAILY 03/06/20 03/20/20 History mcg-vilanterol 25 mcg/dose inhalation powder sodium bicarbonate 650 mg tablet 650 mg PO BID #180 tab 03/06/20 03/20/20 Rx furosemide 40 mg tablet 40 mg PO DAILY #90 tab 04/03/20 Rx Past Med/Surg History Medical History (Updated 08/04/20 @ 02:23 by GALO Heredia) Accidental fall Anemia associated with chronic renal failure Asthma Atrial fibrillation Dx 02/2019. On Eliquis. Per Dr. Grimaldo 03/03/19 office note, suspect afib was present for a long time given significant biatrial dilatation. Cardiomyopathy Systolic CHF, EF 25-30% on echo 03/28/19 with global HK. Per cardiology consu lt 02/14/19, cannot exlude ischemic etiology, but may also be 2/2 prolonged tachycardia. Euvolemic on exam at PAT 09/07/19. Carotid artery stenosis without cerebral infarction < 50% bilateral carotid stenosis per 2018 imaging (*No imaging in our records but this was noted by PCP at 06/2019 office visit) Chronic kidney disease, stage 4 (severe) Cognitive impairment Daughter, Linda Dupont, primary prep cook Depression Diabetes diet controlled ESRD (end stage renal disease) on dialysis pt to do dialysis MWF in [facility] but has been refusing to go and according to the daughter she has not been there for about the last 2 weeks. Hip pain, left Hypertension Hyponatremia 2/2 SIADH Hypothyroidism Osteopenia Proteinuria Psoriasis Secondary hyperparathyroidism Secondary hyperparathyroidism of renal origin SIADH (syndrome of inappropriate ADH production) Stage 5 chronic kidney disease not on chronic dialysis Systolic CHF EF 25-30% per 03/2019 echo Surgical History H/O colonoscopy History of dilatation and curettage History of vascular access device RIGHT UPPER CHEST PERMACATH FOR DIALYSIS 04/01/19 S/P arteriovenous (AV) fistula creation Jul 2019 Family History Father Heart disease Mother Diabetes Heart disease Hypertension Daughter Breast cancer Brother Hypertension Grandmother (Maternal) Family hx of colon cancer Denies family history of Ovarian cancer Colorectal cancer Colonic polyp Social History Smoking Status: Never smoker Second Hand Exposure: No; Hx Alcohol Use: No Hx Substance Use: No Preferred Language: Zambian Communication Ability: Effective 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: No Beliefs That Will Affect Care: None marital status: Single Current Living Situation: Alone current occupational status: retired current occupation: [employer] Feels Safe at Home: Yes Safety Concerns: Feels Safe At This Time Assistive Devices: BiPap and Oxygen - Continuous Review of Systems Review of Systems: REVIEW OF SYSTEMS: Constitutional: No fever, sweats or chills Eyes: No diplopia, no worsening or blurred vision ENT: normal hearing, no trouble swallowing Respiratory: (+) cough, dyspnea on exertion and rest, (-) sputum Cardiovascular: (+) tachycardia, edmea, No chest pain, tightness or palpitations Abdomen: No pain, nausea, vomiting, diarrhea or constipation Musculoskeletal: No joint pain, calf pain, swelling Neurologic: No weakness, numbness/tingling, or balance problems Psychiatric: No anxiety or depression Skin: No rash or itch Results & Data Results & Data ([facility]) Vital Signs (Past 12 Hours) Vital Signs Temp Pulse Resp BP Pulse Ox 08/03/20 14:51 81 27 H 95 08/03/20 13:47 130 H 23 192/122 H 91 08/03/20 13:40 118 H 94 08/03/20 13:34 36.6 C 118 H 20 174/98 H 88 L 08/03/20 13:33 123 H 174/118 H 94 08/03/20 13:30 107 H 93 Laboratory Results Abnormal lab results 08/03/20 08/03/20 08/03/20 Range/Units 13:34 13:34 13:34 RBC 3.60 L (4.2-5.4) M/uL Hgb 11.5 L (12.0-16.0) g/dL Hct 35.4 L (37-47) % RDW Std Deviation 55.5 H (36.4-46.3) fL RDW Coeff of Carlo 15.5 H (11.5-14.5) % MPV 10.5 H (7.4-10.4) fL Lymph # (Auto) 1.00 L (1.2-3.4) K/uL Immature Gran # (Auto) 0.03 H (0.00-0.02) K/uL APTT 36.0 H (21.0-31.0) Seconds Sodium 134 L (136-145) mmol/L Carbon Dioxide 17 L (21-32) mmol/L Anion Gap 15.0 H (3-11) BUN 34 H (7-18) mg/dl Creatinine 3.26 H (0.6-1.2) mg/dl Magnesium 3.3 H (1.8-2.4) mg/dl Total Bilirubin 1.1 H (0.2-1) mg/dl AST 14 L (15-37) U/L ALT 10 L (12-78) U/L NT-Pro-B Natriuret Pep > 41514 H (0-1800) pg/ml Globulin 4.5 H (2.5-4.0) gm/dl Albumin/Globulin Ratio 0.8 L (0.9-2) Diagnostic Findings XR chest 1V portable CLINICAL HISTORY: Dyspnea COMPARISON STUDY: 02/21/2020 FINDINGS: The heart is enlarged. There is mild pulmonary vascular congestion. There are bilateral pleural effusions with associated basilar airspace opacities atelectatic versus infectious/inflammatory. There are postinflammatory calcifications within the right lung apex.[ IMPRESSION: 1. Cardiomegaly and radiographic evidence of mild congestive failure/fluid overload 2. Bilateral pleural effusions with associated basilar airspace opacities Medications Administered Discontinued Medications Furosemide (Furosemide 40 Mg/4 Ml Vial) 40 mg IV NOW STA Stop: 08/03/20 15:27 Last Admin: 08/03/20 15:35 Dose: 40 mg Documented by: [id number] Hydralazine HCl (Hydralazine Hcl 25 Mg Tab) 25 mg PO NOW STA Stop: 08/03/20 13:59 Last Admin: 08/03/20 14:22 Dose: 25 mg Documented by: [id number] Metoprolol Tartrate (Metoprolol Tartrate 1 Mg/Ml Vial) 5 mg IV NOW STA Stop: 08/03/20 13:49 Last Admin: 08/03/20 13:55 Dose: 5 mg Documented by: [id number] Nitroglycerin (Nitroglycerin 2% Ointment 30gm Tube) 1 inch EXT NOW ONE Stop: 08/03/20 15:10 Last Admin: 08/03/20 15:36 Dose: 1 inch Documented by: [id number] Nitroglycerin (Nitroglycerin 2% Ointment 30gm Tube) 1 inch EXT NOW ONE Stop: 08/03/20 15:25 Last Admin: 08/03/20 15:43 Dose: Not Given Documented by: [id number] Code Status & VTE Plan Code Status apixaban full code Critical Care Time Critical Care Time: Yes Total Critical Care Time: 90 Supervising Physician Co-Signing Physician Notes Attending Attestation and Admission Note: Pt seen and examined, chart reviewed, admission care plan extensively discussed with GALO Brownlee. I agree with the wong components of his admission documentation. 79yo female with chronic systolic CHF EF 25%, CKD stage 5 with utilization of HD from 1134-8053 at which point she stopped hemodialysis, noncompliance, hypothyroidism, permanent a.fib on eliquis, HTN, and chronic dermatitis of b/l feet - presenting with worsening dyspnea and WHIPPLE over several days. Upon ER presentation today was in rapid a.fib, had markedly elevated BP, and was severely dyspneic. BIPAP was applied by ED attending, IV lopressor given for BP & HR, and lasix 40mg IV was administered. Mr Brownlee reported his findings to me after his admission assessment and care plan was thoroughly reviewed. I went to Ms Figueroa's room to perform my personal assessment and immediately upon arrival she yelled at me and said "take this damn thing [bipap mask] off!!". She was severely dyspneic and having respiratory distress with significant orthopnea. Respiratory therapist was in the room. She again demanded the BIPAP off. BIPAP was removed, and oxymask was applied. O2 sats on 15L were 88%. I asked the RT to retrieve high-flow NC. In the midst of the above she was tachycardic in the 120s, and SBP was 180-190. Mr Brownlee came back to bedside, care was discussed again, and a decision at that time was to change her admission status to ICU. Mr Brownlee subsequently spoke with ICU providers re: her care. Of note - with lasix 40mg x 1 given by ED attending she had NOT voided. I subsequently ordered 2mg IV bumex x 1 and asked ER nursing to place page. PMH/PSH/allergies/meds/sochx/famhx- reviewed vitals: tachy, elevated BP, tachypneic, afebrile, hypoxic gen - severe resp distress, dyspneic, uncomfortable, agitated neck - JVD to the jaw heart - irregular, tachy, s1 s2 lungs - diffuse crackles b/l, increased work of breathing with retractions/accessory muscle use, end-exp wheezes abd - distended (with edema/ascites?), BS+, NT ext - 1-2+ edema b/l skin - SEVERE dermatitis with cracking of skin in numerous areas of b/l plantar aspect of both feet; macerated skin with exposed dermal layers; serosanguinous drainage noted from several areas b/l feet; toenails with severe onychomycosis vasc - pulses b/l feet 1-2+ labs reviewed cxr reviewed EKG rapid a.fib COVID neg A/P: 1. acute hypoxic resp failure - severe - 2nd to decompensated CHF. At risk of intubation given lack of compliance with BIPAP, ongoing distress, etc. Admit to ICU. BIPAP or HFNC - former preferred if she can comply/tolerate. May need low-dose morphine IV prn or mild sedation (cautiously) for severe anxiety/agitation. D efer to ICU provider. DIURESE with bumex - will need larger doses given severe CKD stage 5. 2. acute/chronic systolic CHF - BP control, a.fib rate control, and diurese. May need BB drip for rate control and BP control. Or, consider IV pushes of lopressor for rate control, and nitro drip for BP control. Either way defer to ICU provider. In the past she has been noncompliant with meds and also her synthroid. Decompensated hypothyroidism will play into this as well in addition to her advanced CKD making volume management challenging. 3. rapid a.fib - rate control and cont eliquis. 4. hypothyroidism - check TSH; cont synthroid. 5. CKD stage 5 - previously on HD from 0441-3721. No longer on HD. If diuresis proves difficult or unsatisfactory may need to reconsider dialysis for volume control. Hopefully IV diuretics will work as she is VERY POOR candidate to restart HD in the future. Serial labs. 6. severe dermatitis of b/l feet - wound care consultation. Previously saw derm and wound care center as outpatient. Last notes - betamethasone to feet daily with xeroform dressings. 7. HTN - may need IV infusion for severe elevation in the setting of #1 and #2. total critical care time 90 minutes between myself and Mr Kem's care Rober Roberson MD PG Care Time/CCT Total # of Minutes Spent Total Time Spent with Patient: Total time spent is greater than 50% in coordination of care (as documented) at patient's floor/unit and/or counseling patient: Critical Care Time: Yes Total Critical Care Time: 90 Coding Level of Care Code None Diagnoses HFrEF (heart failure with reduced ejection fraction) I50.20 Heart failure chronicity: unspecified Hypertension I15.1; N28.89 Hypertension type: secondary to other renal disorders Atrial fibrillation I48.91 Atrial fibrillation type: unspecified Stage 5 chronic kidney disease not on chronic dialysis N18.5 Secondary hyperparathyroidism of renal origin N25.81 Mitral regurgitation I34.0 Cardiac valve disease etiology: etiology unspecified Diabetes E11.22; N18.5 Chronic kidney disease stage: stage 5, not on chronic dialysis Diabetes mellitus complication detail: with chronic kidney disease Diabetes mellitus complication status: with kidney complications Diabetes mellitus skilled nursing insulin use: without skilled nursing use Diabetes mellitus type: type 2 Hyponatremia E87.1 Vesicular palmoplantar eczema L30.1 Anxiety F41.9 Acute respiratory failure with hypoxia J96.01 Hypothyroidism E03.9 Hypothyroidism type: acquired Additional Codes Critical Care Time - Critical Care Time: Yes ([id number]) Time Spent (min) 90 (1) Diabetes Chronic kidney disease stage: stage 5, not on chronic dialysis Diabetes mellitus complication detail: with chronic kidney disease Diabetes mellitus complication status: with kidney complications Diabetes mellitus public relations writer insulin use: without skilled nursing use Diabetes mellitus type: type 2 Qualified Code(s): E11.22 - Type 2 diabetes mellitus with diabetic chronic kidney disease; N18.5 - Chronic kidney disease, stage 5 (2) Atrial fibrillation Atrial fibrillation type: unspecified Qualified Code(s): I48.91 - Unspecified atrial fibrillation (3) Mitral regurgitation Cardiac valve disease etiology: etiology unspecified Qualified Code(s): I34.0 - Nonrheumatic mitral (valve) insufficiency (4) HFrEF (heart failure with reduced ejection fraction) Heart failure chronicity: unspecified Qualified Code(s): I50.20 - Unspecified systolic (congestive) heart failure (5) Hypertension Hypertension type: secondary to other renal disorders Qualified Code(s): I15.1 - Hypertension secondary to other renal disorders; N28.89 - Other specified disorders of kidney and ureter (6) Hypothyroidism Hypothyroidism type: acquired Qualified Code(s): E03.9 - Hypothyroidism, unspecified
[2020-08-03] MEDS ORDERED: BUMETANIDE 2 MG in SYRINGE 0 ML IV ONE (17:30)
[2020-08-03 18:02] LABS: Appearance Urine Clear (Clear); Bacteria Urine Automated Negative (Negative); Bilirubin Urine Negative (Negative); Blood Urine 3+ (Negative); Color Urine Yellow; Epithelial Cell Urine Auto 20-30 /lpf (0-5); Glucose Urine UA Negative (Negative); Ketones Urine Trace (Negative); Leukocyte Esterase Urine Negative (Negative); Nitrite Urine Negative (Negative); Protein Urine 3+ (Negative); RBC Urine Automated >30 /hpf (0-4); Specific Gravity Urine 1.012 (1.000-1.030); Urobilinogen Urine Negative (Negative)
[2020-08-03] MEDS ORDERED: ICU PROTOCOL FOR HYPERGLYCEMIA PRN (19:01)
[2020-08-03] MEDS ORDERED: hydrALAZINE HCL 20 MG/ML VIAL IV PRN ×2 (19:01→19:41)
[2020-08-03] MEDS ORDERED: STAT IV Infusion **Titration per Protocol STA (19:01)
[2020-08-03] MEDS ORDERED: ACETAMINOPHEN 325 MG TAB PO PRN (19:03)
[2020-08-03] MEDS ORDERED: LABETALOL HCL IV 5 MG/ML 20ML IV STA (19:17)
[2020-08-03] MEDS ORDERED: LABETALOL HCL IV 5 MG/ML 20ML IV ONE (19:18)
[2020-08-03] MEDS ORDERED: BUMETANIDE 10 MG in DEXTROSE 5% 10 ML IV SCH (19:30)
[2020-08-03] MEDS ORDERED: ALBUT/IPRATROP 3MG/0.5MG NEB 3 ML VIAL NEB PRN (19:35)
--- NOTE | 2020-08-03 19:46 | Critical Care Consultation ---
Date of Consultation August 03, 2020 Assessment & Plan (1) Admitted to intensive care unit: Reason Critically Ill: 79-year-old female with extensive past medical history including HFrEF presents to the ICU in acute hypoxic respiratory failure now requiring BiPAP and undergoing diuresis for likely CHF exacerbation. Neuro - [facility] ICU: Negative History of stroke/cognitive deficitPer records patient's daughter makes medical decisions Cardiac - HFrEF/HTN/A. fib/pulmonary hypertension/mitral valve regurglast echo February 2020 showed EF 25 to 30%, moderate mitral valve regurg -Patient significantly hypertensive and likely contributing to CHF exacerbation. Home meds restarted and PRN IV labetalol and hydralazine added. -Heart rate improved following beta-letty, now rate controlled in A. fib. Continue apixaban -Cardiology consulted, will follow up recommendations -Troponin negative, follow daily EKGs -Repeat echo in a.m. -Continue with aggressive diuresis -Daily weights and strict I's and O's -Continuous monitor on telemetry Respiratory - Acute hypoxic respiratory failurechest x-ray consistent with mild congestive failure/fluid overload and bilateral pleural effusions. Cause likely multifactorial as patient has ESRD and HFrEF, significant HTN, and tachycardia. -Low suspicion for infectious process as patient has no inflammatory markers consistent with pneumonia -BNP significantly elevated -Patient showing improvement with BiPAP and plans to continue overnight. We will hold off on intubation for now as patient is making progress. Morphine to improve compliance with BiPAP. -We will continue diuresis with IV Lasix for now with goal -1.5 L for 24 hours -Antihypertensives to reduce afterload -Pulmonary history of asthma/COPD. Nebs as needed -Continuous pulse ox monitoring GI - Renal diet LFTs unremarkable RENAL/LYTES - ESRD/high anion gap metabolic acidosis previously on dialysis which was discontinued in November 2019 due to noncompliance? Now being medically managed with diuretics/sevelamer and sodium bicarb -High anion gap metabolic acidosis likely from ESRD. Lactate negative. Questionable compliance with home meds. Will restart home sodium bicarb, hold on drip for now. -Continue with diuresis as described above -We will monitor routine BMPs, electrolytes currently within normal limits. Hyponatremiachronic and stable at this time. 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 Monitor - Foleystrict I's and O's ENDO - Secondary hyperparathyroidcontinue calcitriol DM type II-reported to be diet controlled, patient is currently euglycemic. ICU hyperglycemic protocol Hypothyroidpresents with significantly elevated TSH with normal T4. Continue Synthroid HEME - H&H stable and consistent with prior studies, monitor routine CBCs Integumentary Dyshidrotic eczemalooks worse when compared to previous photos in chart. Wound care nurse consulted. Continue with betamethasone ointment and Xeroform for now ID - No clear indication for infectious process or antibiotic therapy at this time as patient has no leukocytosis, afebrile, pro Dillon negative, lactate negative. LINES/IV ACCESS - Peripheral IVs, Castillo DVT PROPHYLAXIS - SCDs, on apixaban I have personally spent 40 minutes of critical care time in the direct management of this patient. This is a life/limb threatening event. This includes time spent evaluating patient, direct bedside care, chart review, placing orders , interpretation of diagnostic studies, discussion with consultants, patient, and family members, as well as other required patient management activities. This time is exclusive of all separately billable procedures, and teaching time and separate from and in addition to any other critical care service time. Thank you for allowing us to participate in the care of this patient. Please refer to my attending physician's documentation for any further recommendations. (2) Stage 5 chronic kidney disease not on chronic dialysis: (3) Vesicular palmoplantar eczema: (4) Secondary hyperparathyroidism of renal origin: (5) Noncompliance with medication regimen: (6) CKD (chronic kidney disease): (7) Hypertension: (8) Pulmonary hypertension: (9) Mitral regurgitation: (10) HFrEF (heart failure with reduced ejection fraction): (11) Subclavian artery stenosis: (12) Anxiety: (13) Asthma: (14) Cognitive impairment: (15) Carotid artery stenosis without cerebral infarction: (16) Depression: (17) Diabetes: (18) Secondary hyperparathyroidism: (19) Atrial fibrillation: (20) Hyponatremia: (21) Acute respiratory failure with hypoxia: (22) CHF exacerbation: (23) High anion gap metabolic acidosis: History of Present Illness Attending Physician: Rober Roberson History of Present Illness Patient is a 79-year-old female with complex past medical history including HFrEF (EF 25 to 30%), mild to moderate mitral regurg, chronic pericardial effusion, episodic opiate abuse and noncompliance with medical regimen, ESRD (ended dialysis November 2019), HTN, A. fib (on apixaban), secondary hyperparathyroid, and dyshidrotic eczema. Earlier this evening the patient pre sented to the emergency department with ongoing shortness of breath which had recently increased. She was found to be hypertensive, hypoxic, and tachycardic. Patient was initially noncompliant with BiPAP and had minimal response with diuresis, and respiratory status continued to worsen in which she was requiring 100% FiO2 and transferred to the ICU. On arrival to the ICU the patient is alert and oriented. She is tachypneic and showing labored breathing on high flow nasal cannula and was immediately switched to BiPAP and given morphine to help with compliance. She has since shown improvement in her respiratory status and will hold off on intubation for the time being. She is also significantly hypertensive and given IV labetalol and hydralazine. Home meds have been restarted for tonight. We will continue with diuresis as she is likely volume overloaded. She currently denies headache, dizziness, recent illness or sore throat, fevers, chest pain or palpitations, abdominal pain, nausea or vomiting or diarrhea. She denies productive cough or hemoptysis. She does report shortness of breath and difficulty breathing which is been ongoing but has significantly worsened today. She states that since her breathing has improved with BiPAP. Patient to remain in ICU for further management at this time. Allergies Allergy/AdvReac Type Severity Reaction Status Date / Time doxycycline Allergy Unknown Hives Verified 08/03/20 14:32 labetalol Allergy Unknown tired and Verified 08/03/20 14:32 depressed lorazepam Allergy Unknown "SQUIRRELLY Verified 08/03/20 14:32 " Pork/Porcine Containing Allergy Unknown tired and Verified 08/03/20 14:32 Products depression tetracycline Allergy Unknown unknown(not Verified 08/03/20 14:32 100% sure if she's allergic to it) tramadol AdvReac Unknown dizzy, Verified 08/03/20 14:32 emesis Home Medications Medication Instructions Recorded Confirmed Type hydralazine 25 mg tablet 25 mg PO TID #90 tab 01/28/19 03/20/20 Rx folic acid 1 mg PO QAM #30 tab 04/06/19 03/20/20 Rx apixaban 2.5 mg tablet 2.5 mg PO BID #60 tab 05/23/19 03/20/20 Rx aspirin 81 mg PO DAILY 07/14/19 03/20/20 History betamethasone valerate 0.1 % 1 appln TOP BID #45 gm 08/09/19 03/20/20 Rx topical ointment levothyroxine 175 mcg tablet 175 mcg PO DAILY #90 tab 09/09/19 03/20/20 Rx amlodipine 5 mg PO DAILY 02/16/20 03/20/20 History sevelamer carbonate 800 mg PO TIDM 02/16/20 03/20/20 History lidocaine 1 patch TRANSDERMAL QAM #10 ea 02/18/20 03/20/20 Rx oxycodone 5 mg PO Q6H PRN #1 tab 02/25/20 03/20/20 Rx acetaminophen 325 mg tablet 650 mg PO Q6H PRN tab 03/05/20 03/20/20 History bumetanide 2 mg tablet 2 mg PO BID 03/06/20 03/06/20 History calcitriol 0.25 mcg capsule 0.25 mcg PO .M-W-F cap 03/06/20 03/06/20 History carvedilol 25 mg tablet 12.5 mg PO BID tab 03/06/20 03/20/20 History fluticasone furoate 200 1 inh INHALATION DAILY 03/06/20 03/20/20 History mcg-vilanterol 25 mcg/dose inhalation powder sodium bicarbonate 650 mg tablet 650 mg PO BID #180 tab 03/06/20 03/20/20 Rx furosemide 40 mg tablet 40 mg PO DAILY #90 tab 04/03/20 Rx Patient History Medical History (Updated 08/04/20 @ 02:23 by GALO Heredia) Accidental fall Anemia associated with chronic renal failure Asthma Atrial fibrillation Dx 02/2019. On Eliquis. Per Dr. Grimaldo 03/03/19 office note, suspect afib was present for a long time given significant biatrial dilatation. Cardiomyopathy Systolic CHF, EF 25-30% on echo 03/28/19 with global HK. Per cardiology consult 02/14/19, cannot exlude ischemic etiology, but may also be 2/2 prolonged tachycardia. Euvolemic on exam at [facility] 09/07/19. Carotid artery stenosis without cerebral infarction < 50% bilateral carotid stenosis per 2018 imaging (*No imaging in our records but this was noted by PCP at 06/2019 office visit) Chronic kidney disease, stage 4 (severe) Cognitive impairment Daughter, Linda Dupont, primary clinical trial associate Depression Diabetes diet controlled ESRD (end stage renal disease) on dialysis pt to do dialysis MWF in [facility] but has been refusing to go and according to the daughter she has not been there for about the last 2 weeks. Hip pain, left Hypertension Hyponatremia 2/2 SIADH Hypothyroidism Osteopenia Proteinuria Psoriasis Secondary hyperparathyroidism Secondary hyperparathyroidism of renal origin SIADH (syndrome of inappropriate ADH production) Stage 5 chronic kidney disease not on chronic dialysis Systolic CHF EF 25-30% per 03/2019 echo Surgical History H/O colonoscopy History of dilatation and curettage History of vascular access device RIGHT UPPER CHEST PERMACATH FOR DIALYSIS 04/01/19 S/P arteriovenous (AV) fistula creation Jul 2019 Family History Father Heart disease Mother Diabetes Heart disease Hypertension Daughter Breast cancer Brother Hypertension Grandmother (Maternal) Family hx of colon cancer Denies family history of Ovarian cancer Colorectal cancer Colonic polyp Social History Smoking Status: Never smoker Second Hand Exposure: No; Hx Alcohol Use: No Hx Substance Use: No Preferred Language: Khmer Communication Ability: Effective Substance Abuse Rn Required: No Beliefs That Will Affect Care: None marital status: Single Current Living Situation: Alone current occupational status: retired current occupation: [email or web address] Feels Safe at Home: Yes Safety Concerns: Feels Safe At This Time Assistive Devices: BiPap and Oxygen - Continuous Review of Systems Review of Systems: All systems reviewed & are unremarkable except as noted in HPI & below Physical Exam Constitutional: + frail appearing and cooperative Eyes: PERRL, conjunctivae normal, anicteric sclerae ENMT: external ear and nose normal, oropharynx normal Neck: trachea midline, no thyromegaly Respiratory: Fine crackles and wheezes auscultated bilaterally in all herring. Patient is moderately tachypneic with respiratory rate in the upper 20s. Symmetrical chest wall movement. Labored breathing and use of accessory muscles has significantly improved following BiPAP administration. No cough. Cardiovascular: Rate/Rhythm: + tachycardic and + irregularly irregular Vessels: no JVD Extremities: no pedal edema and no edema Gastrointestinal (Abdomen): normal bowel sounds, soft, nontender, no hepatosplenomegaly Skin: + dry skin Dyshidrotic eczema noted bilaterally on soles of feet Neurologic: PERRL, EOMI, accommodation nl, no face palsy, no dysarthria Psychiatric: A+Ox3, euthymic affect Genitourinary: Indwelling Castillo catheter present Results & Data Results & Data ([facility]) Vital Signs (Past 12 Hours) Vital Signs Temp Pulse Pulse Resp BP Pulse Ox 08/03/20 19:29 36.4 C L 65 27 H 161/100 H 97 08/03/20 19:14 108 H 22 185/118 H 93 08/03/20 19:00 128 H 18 90 08/03/20 18:58 104 H 23 186/123 H 92 08/03/20 18:53 98 H 32 H 08/03/20 18:03 104 H 22 94 08/03/20 17:25 120 H 26 H 91 08/03/20 17:20 125 H 27 H 08/03/20 17:15 131 H 24 194/115 H 08/03/20 17:10 120 H 24 08/03/20 17:01 121 H 93 08/03/20 17:00 106 H 23 175/125 H 93 08/03/20 16:50 113 H 95 08/03/20 16:45 108 H 190/119 H 94 08/03/20 16:40 103 H 95 08/03/20 16:31 105 H 93 08/03/20 16:30 118 H 18 170/117 H 94 08/03/20 16:20 108 H 95 08/03/20 16:15 113 H 177/107 H 92 08/03/20 16:11 115 H 08/03/20 16:10 109 H 176/131 H 92 08/03/20 16:01 85 96 08/03/20 16:00 101 H 180/125 H 96 08/03/20 15:50 102 H 23 96 08/03/20 15:45 92 H 193/122 H 96 08/03/20 15:40 100 H 94 08/03/20 15:39 98 H 29 H 180/112 H 96 08/03/20 15:31 85 95 08/03/20 15:30 92 H 17 183/149 H 95 08/03/20 15:20 87 22 94 08/03/20 15:10 79 22 94 08/03/20 15:01 85 25 H 96 08/03/20 15:00 87 182/123 H 96 08/03/20 14:51 81 27 H 95 08/03/20 14:50 73 93 08/03/20 14:40 95 H 08/03/20 14:31 88 174/117 H 08/03/20 14:30 89 22 88 L 08/03/20 14:20 73 27 H 88 L 08/03/20 14:10 94 H 90 08/03/20 14:00 99 H 23 91 08/03/20 13:50 124 H 23 93 08/03/20 13:48 97 H 93 08/03/20 13:47 130 H 23 192/122 H 91 08/03/20 13:40 118 H 94 08/03/20 13:34 36.6 C 118 H 20 174/98 H 88 L 08/03/20 13:33 123 H 174/118 H 94 08/03/20 13:30 107 H 93 Coding Level of Care Code Critical Care 1st 30-74 mins Diagnoses Admitted to intensive care unit Z78.9 Stage 5 chronic kidney disease not on chronic dialysis N18.5 Vesicular palmoplantar eczema L30.1 Secondary hyperparathyroidism of renal origin N25.81 Noncompliance with medication regimen Z91.14 CKD (chronic kidney disease) N18.9 Hypertension I15.1; N28.89 Hypertension type: secondary to other renal disorders Pulmonary hypertension I27.20 Mitral regurgitation I34.0 Cardiac valve disease etiology: etiology unspecified HFrEF (heart failure with reduced ejection fraction) I50.20 Heart failure chronicity: unspecified Subclavian artery stenosis I77.1 Anxiety F41.9 Asthma J45.909 Cognitive impairment R41.89 Carotid artery stenosis without cerebral infarction I65.29 Depression F32.9 Diabetes E11.22; N18.5 Diabetes mellitus type: type 2 Diabetes mellitus custodial insulin use: without intermediate teacher use Diabetes mellitus complication status: with kidney complications Diabetes mellitus complication detail: with chronic kidney disease Chronic kidney disease stage: stage 5, not on chronic dialysis Secondary hyperparathyroidism N25.81 Atrial fibrillation I48.91 Atrial fibrillation type: unspecified Hyponatremia E87.1 Acute respiratory failure with hypoxia J96.01 CHF exacerbation I50.9 High anion gap metabolic acidosis E87.2 (1) Hypertension Hypertension type: secondary to other renal disorders Qualified Code(s): I15.1 - Hypertension secondary to other renal disorders; N28.89 - Other specified disorders of kidney and ureter (2) Mitral regurgitation Cardiac valve disease etiology: etiology unspecified Qualified Code(s): I34.0 - Nonrheumatic mitral (valve) insufficiency (3) HFrEF (heart failure with reduced ejection fraction) Heart failure chronicity: unspecified Qualified Code(s): I50.20 - Unspecified systolic (congestive) heart failure (4) Diabetes Diabetes mellitus type: type 2 Diabetes mellitus custodial insulin use: without intermediate teacher use Diabetes mellitus complication status: with kidney complications Diabetes mellitus complication detail: with chronic kidney disease Chronic kidney disease stage: stage 5, not on chronic dialysis Qualified Code(s): E11.22 - Type 2 diabetes mellitus with diabetic chronic kidney disease; N18.5 - Chronic kidney disease, stage 5 (5) Atrial fibrillation Atrial fibrillation type: unspecified Qualified Code(s): I48.91 - Unspecified atrial fibrillation
[2020-08-03] MEDS ORDERED: METOPROLOL TARTRATE 1 MG/ML VIAL IV PRN (20:00)
[2020-08-03] MEDS: SODIUM BICARBONATE 650 MG TAB PO SCH (20:15)
[2020-08-03] MEDS: BETAMETHASONE VAL 0.1% CR 15 GM EXT SCH (20:15)
[2020-08-03] MEDS: amLODIPine BESYLATE 5 MG TAB PO SCH (20:16)
[2020-08-03] MEDS: hydrALAZINE HCL 25 MG TAB PO SCH (20:16)
[2020-08-03] MEDS: APIXABAN 2.5 MG TAB PO SCH (20:17)
[2020-08-03] MEDS ORDERED: FUROSEMIDE 40 MG/4 ML VIAL IV ONE (21:00)
[2020-08-03] MEDS: carvediloL 25 MG TAB PO SCH (21:02)
[2020-08-03] MEDS: MoRPHine SULFATE 2 MG/ML CARP IV PRN (21:02)
[2020-08-03 21:25] LABS: iSTAT Allen Test Pass; iSTAT Art Bld Gas pCO2 Correct 30 mmHg (35-46); iSTAT Art Bld Gas pH Corrected 7.386 (7.35-7.45); iSTAT Arterial Blood Gas HCO3 18 meg/L (19-24); iSTAT Arterial Blood Gas pCO2 31 mmHg (35-46); iSTAT Arterial Blood Gas pH 7.38 (7.35-7.45); iSTAT Arterial Blood Gas pO2 91 mmHg (80-95); iSTAT Arterial Blood Gas pO2 C 88; iSTAT Carbon Dioxide 19 mmol/L (24-31); iSTAT FiO2 70 %; iSTAT Hematocrit 33 % (37-47); iSTAT Hemoglobin 11.2 g/dl (12.0-16.0); iSTAT Potassium 4.5 mmol/L (3.3-5.0); iSTAT Site L Radial; iSTAT Sodium 134 mmol/L (135-144)
[2020-08-03] MEDS ORDERED: LABETALOL HCL IV 5 MG/ML 20ML IV PRN (23:00)
[2020-08-04] MEDS: MoRPHine SULFATE 2 MG/ML CARP IV PRN (01:33)
[2020-08-04 05:23] LABS: Basophils # (auto) 0.03 K/uL (0-0.2); Basophils % (auto) 0.7 %; Eosinophils # (auto) 0.05 K/uL (0-0.5); Eosinophils % (auto) 1.1 %; Hematocrit (blood only) 29.8 % (37-47); Hemoglobin 9.7 g/dL (12.0-16.0); Immature Granulocytes # (auto) 0.04 K/uL (0.00-0.02); Immature Granulocytes % (auto) 0.9 %; Lymphocytes # (auto) 0.77 K/uL (1.2-3.4); Lymphocytes % (auto) 16.7 %; Mean Corpuscular Hemoglobin 32.2 pg (25-34); Mean Corpuscular Hgb Conc 32.6 g/dL (32-36); Mean Platelet Volume 10.1 fL (7.4-10.4); Monocytes # (auto) 0.38 K/uL (0.11-0.59); Monocytes % (auto) 8.3 %; Neutrophils # (auto) 3.33 K/uL (1.4-6.5); Neutrophils % (auto) 72.3 %; Platelet Count 178 K/uL (130-400); RDW Coefficient of Variation 15.4 % (11.5-14.5); RDW Standard Deviation 55.5 fL (36.4-46.3); Red Blood Count 3.01 M/uL (4.2-5.4)
[2020-08-04] MEDS: LEVOTHYROXINE SODIUM 175 MCG TABLET PO SCH (05:32)
[2020-08-04 05:55] LABS: BUN Creatinine Ratio 11.8 (10-20); Creatinine Clr Calc Pharmacy 12.7 ml/min; Est GFR (African American) 14.7; Est GFR (Non-African American) 12.7; Magnesium 3.2 mg/dl (1.8-2.4); Phosphorus 5.4 mg/dl (2.5-4.9); Potassium 4.5 mmol/L (3.5-5.1)
[2020-08-04 07:11] LABS: Thyroid Stimulating Hormone 10.7 uIu/ml (0.300-4.500)
[2020-08-04] MEDS: SEVELAMER HCL 800 MG TABLET PO SCH ×3 (08:06→16:36)
[2020-08-04] MEDS: FLUTICASONE/VILANTEROL 200/25MCG 14 PUFFS/INHALER INH SCH (08:07)
[2020-08-04] MEDS: hydrALAZINE HCL 25 MG TAB PO SCH ×3 (08:07→20:00)
[2020-08-04] MEDS: FOLIC ACID 1 MG TAB PO SCH (08:08)
[2020-08-04] MEDS: ASPIRIN 81 MG ECTAB PO SCH (08:08)
[2020-08-04] MEDS: APIXABAN 2.5 MG TAB PO SCH ×2 (08:08→20:00)
[2020-08-04] MEDS: LIDOCAINE 5% 1 PATCH TD SCH ×2 (08:08→11:48)
[2020-08-04] MEDS: carvediloL 25 MG TAB PO SCH ×2 (08:08→20:00)
[2020-08-04] MEDS: amLODIPine BESYLATE 5 MG TAB PO SCH (08:09)
[2020-08-04] MEDS: SODIUM BICARBONATE 650 MG TAB PO SCH ×2 (08:09→20:00)
[2020-08-04] MEDS: BETAMETHASONE VAL 0.1% CR 15 GM EXT SCH ×2 (08:09→20:01)
[2020-08-04] MEDS: FUROSEMIDE 40 MG in SYRINGE 0 ML IV SCH ×2 (08:10→16:36)
--- NOTE | 2020-08-04 08:49 | XRay Report ---
XR chest 1V portable CLINICAL HISTORY: Respiratory failure COMPARISON STUDY: 08/03/2010 FINDINGS: The heart remains enlarged with a globular configuration. There are persistent bilateral pl eural effusions with associated basilar airspace opacities. Mild central vascular congestion is suspe cted.[ IMPRESSION: 1. Persistent enlarged cardiac silhouette with mild pulmonary vascular congestion/fluid overload 2. Persistent bilateral pleural effusions with associated basilar airspace opacities ACT 112: Negative or not required by law. Electronically signed by: Marek Garcia M.D. 08/04/2020 8:47 AM
[2020-08-04] MEDS ORDERED: BUMETANIDE 1 MG TAB PO SCH (09:00)
--- NOTE | 2020-08-04 10:41 | Critical Care Progress Note ---
Date of Service August 04, 2020 Assessment & Plan (1) CHF exacerbation: Patient's blood pressure and hypoxia are improved today. She is restarted on her home antihypertensive medications. Continue IV diuresis with 40 mg twice daily of Lasix. Will consult nephrology for evaluation. She has a history of dialysis catheter placement which has since been removed. There is a note from nephrology in the outpatient clinic in February 2020 which indicated that due to her age and prior total noncompliance, a conservative approach was favored rather than hemodialysis. Her TSH is very elevated and her phosphorus are elevated. Questionable medical compliance. She would benefit from PT/OT. She can continue using BiPAP on a as needed basis. Repeat echocardiogram can be considered. Prior echo in 2018 demonstrated LVEF 25 to 30% with RV dysfunction. She does have small bilateral effusions. She is currently anticoagulated on apixaban for atrial fibrillation. Will defer thoracentesis given that her oxygenation has improved. Would recommend continued diuresis as noted above. She currently has a non-anion gap acidosis likely related to chronic renal failure. Continue sodium bicarb p.o. No clear signs of infection at this time. Continue to hold antibiotics. Procalcitonin on 08/03/2020 was within normal limits. She would, however, benefit from wound consult to evaluate her feet. Palliative care consultation may be beneficial. Overall prognosis poor. She is stable to transfer to the floor at this time. (2) High anion gap metabolic acidosis: (3) Admitted to intensive care unit: (4) Stage 5 chronic kidney disease not on chronic dialysis: (5) Noncompliance with medication regimen: (6) Pulmonary hypertension: (7) Mitral regurgitation: (8) Hypertensive urgency: Admission and Anticipated Discharge Date Admission Date: August 03, 2020 Subjective Patient seen and examined this morning. She denies any shortness of breath, chest pain, fevers or chills. Minimal cough. Requiring 4 L of oxygen to maintain saturations of 92 to 94%. Blood pressure is improved today. She is off all drips. Castillo catheter in place draining urine. Review of Systems Review of Systems: All systems reviewed & are unremarkable except as noted in HPI & below Physical Exam Constitutional: + frail appearing and cooperative Eyes: PERRL, conjunctivae normal, anicteric sclerae ENMT: external ear and nose normal, oropharynx normal Neck: trachea midline, no thyromegaly Respiratory: Mild crackles in the bilateral lower lobes. Diminished breath sounds. Cardiovascular: Rate/Rhythm: + irregularly irregular Vessels: no JVD Extremities: no pedal edema and no edema Gastrointestinal (Abdomen): normal bowel sounds, soft, nontender, no hepatosplenomegaly Musculoskeletal: no cyanosis or clubbing, extremities motor strength 5/5 Skin: + dry skin Neurologic: PERRL, EOMI, accommodation nl, no face palsy, no dysarthria Psychiatric: A+Ox3, euthymic affect Genitourinary: Indwelling Castillo catheter present Results & Data Results & Data ([facility]) Vital Signs (Past 12 Hours) Vital Signs Temp Pulse Pulse Resp BP Pulse Ox 08/04/20 08:07 71 24 140/88 92 08/04/20 08:00 98.1 F 75 24 91 08/04/20 07:07 64 18 154/72 H 92 08/04/20 07:00 67 19 91 08/04/20 06:18 72 18 93 08/04/20 05:32 59 L 21 156/70 H 93 08/04/20 05:07 69 20 172/79 H 94 08/04/20 05:00 72 17 96 08/04/20 04:42 67 17 159/74 H 96 08/04/20 04:07 66 15 164/80 H 94 08/04/20 04:00 97.5 F L 71 19 93 08/04/20 03:21 73 19 95 08/04/20 03:08 64 20 95 08/04/20 03:07 69 15 146/75 H 95 08/04/20 03:00 66 17 95 08/04/20 02:08 76 18 92 08/04/20 02:07 71 22 141/87 H 92 08/04/20 02:00 72 22 94 08/04/20 01:07 70 19 149/80 H 94 08/04/20 01:00 69 20 93 08/04/20 00:07 78 20 155/68 H 92 08/04/20 00:00 97.3 F L 65 22 93 08/03/20 23:21 66 25 H 94 08/03/20 23:20 69 23 149/69 H 94 08/03/20 23:07 76 23 162/72 H 91 08/03/20 23:00 79 26 H 94 I reviewed the vital signs, labs and imaging Coding Level of Care Code 72044 Subseq Hosp Care Lvl 3 Diagnoses CHF exacerbation I50.9 High anion gap metabolic acidosis E87.2 Admitted to intensive care unit Z78.9 Stage 5 chronic kidney disease not on chronic dialysis N18.5 Noncompliance with medication regimen Z91.14 Pulmonary hypertension I27.20 Mitral regurgitation I34.0 Cardiac valve disease etiology: etiology unspecified Hypertensive urgency I16.0 (1) Mitral regurgitation Cardiac valve disease etiology: etiology unspecified Qualified Code(s): I34.0 - Nonrheumatic mitral (valve) insufficiency
--- NOTE | 2020-08-04 12:17 | Cardiology Consultation ---
Date of Consultation August 04, 2020 Assessment & Plan (1) CHF exacerbation: -improving with intravenous diuretics -suspect noncompliance with medications and low-salt diet -continue carvedilol and hydralazine -could consider addition of an oral nitrate -no ARB or ACEI due to renal failure (2) Cardiomyopathy: -current echocardiogram notes improved LVEF up to 40-45% -initially thought to be tachycardic induced -continue conservative medical management (3) Atrial fibrillation: -ventricular response elevated on presentation secondary to her decompensated state -rate now adequately controlled on carvedilol -continue renally adjusted Eliquis History of Present Illness Attending Physician: April Landry MD History of Present Illness Mrs. Figueroa is a 79-year-old female admitted with acute respiratory failure yesterday. This consultation was ordered to assist in cardiac management. Of note, patient typically sees Dr. Grimaldo in the outpatient setting. The patient was in usual state of health until the day of presentation when she developed progressive shortness of breath. She presented to the emergency room and was noted to be significantly hypertensive and had a rapid ventricular response to her atrial fibrillation. She was placed on BiPAP and given intravenous diuretics. She also received intravenous metoprolol for her rapid ventricular response. Fortunately, the patient improved with those intervention s. The patient has been managed by Dr. Grimaldo for her left ventricular dysfunction and chronic systolic CHF. The patient does follow daily weights and claims to have a dry weight of 142 lb. She has not noticed any increase in her weight recently at home. The patient carries a history of end-stage renal disease. She did have several hemodialysis treatments in the past, however, refused further treatments. The patient's compliance has been questioned on numerous occasions. Currently, patient is resting comfortably in bed without complaints. Past medical and surgical history 1. Hypertension 2. Left ventricular dysfunction 3. Chronic systolic CHF 4. Permanent atrial fibrillation 5. End-stage renal disease 6. Anemia of chronic disease 7. Diabetes mellitus 8. Cerebrovascular disease-less than 50% bilateral internal carotid stenoses, 2018 9. Right atrophic kidney 10. Hypothyroidism 11. Psoriasis 12. Secondary hyperparathyroidism 13. SIADH 14. Subclavian artery stenosis 15. Anxiety/depression 16. Cognitive impairment 17. Dyshidrotic eczema 18. History of right chest PermCath Social history Single, lives with her daughter No tobacco alcohol Family history No early coronary artery disease Review of systems Ten point review systems was negative except for that described above. Allergies Allergy/AdvReac Type Severity Reaction Status Date / Time doxycycline Allergy Unknown Hives Verified 08/03/20 14:32 labetalol Allergy Unknown tired and Verified 08/03/20 14:32 depressed lorazepam Allergy Unknown "SQUIRRELLY Verified 08/03/20 14:32 " Pork/Porcine Containing Allergy Unknown tired and Verified 08/03/20 14:32 Products depression tetracycline Allergy Unknown unknown(not Verified 08/03/20 14:32 100% sure if she's allergic to it) tramadol AdvReac Unknown dizzy, Verified 08/03/20 14:32 emesis Home Medications Medication Instructions Recorded Confirmed Type hydralazine 25 mg tablet 25 mg PO TID #90 tab 01/28/19 03/20/20 Rx folic acid 1 mg PO QAM #30 tab 04/06/19 03/20/20 Rx apixaban 2.5 mg tablet 2.5 mg PO BID #60 tab 05/23/19 03/20/20 Rx aspirin 81 mg PO DAILY 07/14/19 03/20/20 History betamethasone valerate 0.1 % 1 appln TOP BID #45 gm 08/09/19 03/20/20 Rx topical ointment levothyroxine 175 mcg tablet 175 mcg PO DAILY #90 tab 09/09/19 03/20/20 Rx amlodipine 5 mg PO DAILY 02/16/20 03/20/20 History sevelamer carbonate 800 mg PO TIDM 02/16/20 03/20/20 History lidocaine 1 patch TRANSDERMAL QAM #10 ea 02/18/20 03/20/20 Rx oxycodone 5 mg PO Q6H PRN #1 tab 02/25/20 03/20/20 Rx acetaminophen 325 mg tablet 650 mg PO Q6H PRN tab 03/05/20 03/20/20 History bumetanide 2 mg tablet 2 mg PO BID 03/06/20 03/06/20 History calcitriol 0.25 mcg capsule 0.25 mcg PO .M-W-F cap 03/06/20 03/06/20 History carvedilol 25 mg tablet 12.5 mg PO BID tab 03/06/20 03/20/20 History fluticasone furoate 200 1 inh INHALATION DAILY 03/06/20 03/20/20 History mcg-vilanterol 25 mcg/dose inhalation powder sodium bicarbonate 650 mg tablet 650 mg PO BID #180 tab 03/06/20 03/20/20 Rx furosemide 40 mg tablet 40 mg PO DAILY #90 tab 04/03/20 Rx Patient History Medical History (Updated 08/04/20 @ 12:16 by Brady Hassan MD) Accidental fall Anemia associated with chronic renal failure Asthma Atrial fibrillation Dx 02/2019. On Eliquis. Per Dr. Grimaldo 03/03/19 office note, suspect afib was present for a long time given significant biatrial dilatation. Cardiomyopathy Systolic CHF, EF 25-30% on echo 03/28/19 with global HK. Per cardiology consult 02/14/19, cannot exlude ischemic etiology, but may also be 2/2 prolonged tachycardia. Euvolemic on exam at PAT 09/07/19. Carotid artery stenosis without cerebral infarction < 50% bilateral carotid stenosis per 2018 imaging (*No imaging in our records but this was noted by PCP at 06/2019 office visit) Chronic kidney disease, stage 4 (severe) Cognitive impairment Daughter, Linda Dupont, primary telephone cleaner Depression Diabetes diet controlled ESRD (end stage renal disease) on dialysis pt to do dialysis MWF in [place] but has been refusing to go and according to the daughter she has not been there for about the last 2 weeks. Hip pain, left Hypertension Hypertensive urgency Hyponatremia 2/2 SIADH Hypothyroidism Osteopenia Proteinuria Psoriasis Secondary hyperparathyroidism Secondary hyperparathyroidism of renal origin SIADH (syndrome of inappropriate ADH production) Stage 5 chronic kidney disease not on chronic dialysis Systolic CHF EF 25-30% per 03/2019 echo Surgical History H/O colonoscopy History of dilatation and curettage History of vascular access device RIGHT UPPER CHEST PERMACATH FOR DIALYSIS 04/01/19 S/P arteriovenous (AV) fistula creation Jul 2019 Family History Father Heart disease Mother Diabetes Heart disease Hypertension Daughter Breast cancer Brother Hypertension Grandmother (Maternal) Family hx of colon cancer Denies family history of Ovarian cancer Colorectal cancer Colonic polyp Social History Smoking Status: Never smoker Second Hand Exposure: No; Hx Alcohol Use: No Hx Substance Use: No Preferred Language: Japanese Communication Ability: Effective Turn Laster Required: No Beliefs That Will Affect Care: None marital status: Single Current Living Situation: Alone current occupational status: retired current occupation: [employer] Feels Safe at Home: Yes Safety Concerns: Feels Safe At This Time Assistive Devices: BiPap and Oxygen - Continuous Physical Exam Physical Exam: In general is a well-developed well-nourished white female lying supine in bed without complaints. HEENT exam notes edema of the upper lip. Neck is supple with full carotid upstrokes. No obvious bruits. Jugular venous pressure is 8 cm of water at 45. Cardiovascular exam reveals an irregularly irregular rhythm with distant heart sounds. No obvious murmurs. Lungs note decreased breath sounds at the bases but no rales. Abdomen is soft without bruits. Extremities reveal intact radial artery pulses bilaterally. There is no peripheral edema. Results & Data ([facility]) Vital Signs (Past 12 Hours) Vital Signs Temp Pulse Pulse Resp BP Pulse Ox 08/04/20 08:07 71 24 140/88 92 08/04/20 08:00 36.7 C 75 24 91 08/04/20 07:07 64 18 154/72 H 92 08/04/20 07:00 67 19 91 08/04/20 06:18 72 18 93 08/04/20 05:32 59 L 21 156/70 H 93 08/04/20 05:07 69 20 172/79 H 94 08/04/20 05:00 72 17 96 08/04/20 04:42 67 17 159/74 H 96 08/04/20 04:07 66 15 164/80 H 94 08/04/20 04:00 36.4 C L 71 19 93 08/04/20 03:21 73 19 95 08/04/20 03:08 64 20 95 08/04/20 03:07 69 15 146/75 H 95 08/04/20 03:00 66 17 95 08/04/20 02:08 76 18 92 08/04/20 02:07 71 22 141/87 H 92 08/04/20 02:00 72 22 94 08/04/20 01:07 70 19 149/80 H 94 08/04/20 01:00 69 20 93 Laboratory Results CBC notes hemoglobin of 9.7, hematocrit 29.8, white count 4.6, platelet count [id number]. Electrolytes noted sodium 137, potassium 4.5, chloride 107, bicarb 19, BUN 39, creatinine 3.31, and glucose of 120. Troponin I level is undetectable less than 0.015. BNP is elevated at greater than 35,000. TSH is elevated at 10.7. Diagnostic Findings Echocardiogram notes mild left ventricular dysfunction with ejection fraction 40-45%. There is mild global hypokinesis. [id number] mitral regurgitation along with mild tricuspid regurgitation is seen. EKG notes atrial fibrillation with a controlled ventricular response. There is left axis deviation and poor R-wave progression across the anterior precordium. There is an inferolateral ST and T-wave abnormality. Chest x-ray shows cardiomegaly, pulmonary edema, and bilateral pleural effusions. PG Care Time/CCT Total # of Minutes Spent Total Time Spent with Patient: Total time spent is greater than 50% in coordination of care (as documented) at patient's floor/unit and/or counseling patient: Coding Level of Care Code 01157 Initial Inpt Care Lvl 3 Diagnoses CHF exacerbation I50.9 Cardiomyopathy I42.9 Atrial fibrillation I48.91 Atrial fibrillation type: unspecified (1) Atrial fibrillation Atrial fibrillation type: unspecified Qualified Code(s): I48.91 - Unspecified atrial fibrillation
--- NOTE | 2020-08-04 12:22 | Nephrology Consultation ---
Date of Consultation August 04, 2020 Assessment & Plan (1) ESRD (end stage renal disease): * Electrolyte balance is acceptable. No acute indication for HD * Continue IV Furosemide today. Consider transitioning to oral Bumex in am * Discussed advanced renal impairment and possible HD in detail w/ patient today. She indicates that she would not accept HD if her condition worsens * Will consult palliative care to establish goals of care and obtain POLST. Patient is agreeable to meet with them. She does not desire heroic measures and only wants conservative medical management in the setting of her kidney failure * Monitor PRP (2) Hypertensive urgency: * BP improved. Agree w/ resuming home medical regimen. Suspect exacerbation of HTN and CHF in part related to poor adherence to medical regimen and dietary Na restriction (3) CHF exacerbation: * Improved. Continue IV Furosemide. Wean O2 as tolerated (4) Atrial fibrillation: * HR controlled * On Apixaban History of Present Illness Reason for Consultation: ESRD Attending Physician: April Landry MD History of Present Illness Ms. Figueroa is a 79 year old white female who is seen at the request of Dr. Nunez due to ESRD. Medical records in the hospital and [facility] dialysis EMR's were reviewed today and are summarized as follows: Ms. Figueroa has ESRD due to renal vascular disease. Her Boring Machine Set Up Operator is Dr. Parikh. Previous evaluation revealed atrophy of the R kidney. BP has been difficult to control. In 03/24 Ms. Figueroa progressed to ESRD and required R IJ THC insertion and initiation of HD for fluid and electrolyte management. Unfortunately she was poorly adherent to her prescribed dialysis regimen and frequently missed treatments. In 08/25 Ms. Figueroa stopped attending her treatments all together and in 09/22 she agreed to be discharged from outpatient dialysis services. Ms. Figueroa subsequently had her THC removed. She was scheduled for outpatient Nephrology follow up but again was poorly adherent to scheduled visits. In 07/25 arrangements were made for AVF creation. Ms. Figueroa did not keep her surgical appointment. Her last Nephrology visit was 02/[address] Parikh. It was noted that due to her age and medical noncompliance that conservative medical therapy would be her best option. Ms. Figueroa has been on NaHCO3 for management of metabolic acidosis, Carvedilol, Lasix, Amlodipine and Hydralazine for management of HTN. She has also been on Apixiban due to chronic atrial fibrillation. Ms. Figueroa was admitted to the ICU last evening due to hypertensive urgency and CHF. She required BiPAP therapy. She has responded to IV diuretic therapy and has now come off NIPPV. Ms. Figueroa's Cr has been ~ 3.5 off dialysis. I have explained that diuretic therapy is necessary to control her BP, alleviate her CHF but may result in worsening kidney function. We discussed HD again. Ms. Figueroa indicates that she does not want dialysis again even if her condition deteriorates. Allergies Allergy/AdvReac Type Severity Reaction Status Date / Time doxycycline Allergy Unknown Hives Verified 08/03/20 14:32 labetalol Allergy Unknown tired and Verified 08/03/20 14:32 depressed lorazepam Allergy Unknown "SQUIRRELLY Verified 08/03/20 14:32 " Pork/Porcine Containing Allergy Unknown tired and Verified 08/03/20 14:32 Products depression tetracycline Allergy Unknown unknown(not Verified 08/03/20 14:32 100% sure if she's allergic to it) tramadol AdvReac Unknown dizzy, Verified 08/03/20 14:32 emesis Home Medications Medication Instructions Recorded Confirmed Type hydralazine 25 mg tablet 25 mg PO TID #90 tab 01/28/19 03/20/20 Rx folic acid 1 mg PO QAM #30 tab 04/06/19 03/20/20 Rx apixaban 2.5 mg tablet 2.5 mg PO BID #60 tab 05/23/19 03/20/20 Rx aspirin 81 mg PO DAILY 07/14/19 03/20/20 History betamethasone valerate 0.1 % 1 appln TOP BID #45 gm 08/09/19 03/20/20 Rx topical ointment levothyroxine 175 mcg tablet 175 mcg PO DAILY #90 tab 09/09/19 03/20/20 Rx amlodipine 5 mg PO DAILY 02/16/20 03/20/20 History sevelamer carbonate 800 mg PO TIDM 02/16/20 03/20/20 History lidocaine 1 patch TRANSDERMAL QAM #10 ea 02/18/20 03/20/20 Rx oxycodone 5 mg PO Q6H PRN #1 tab 02/25/20 03/20/20 Rx acetaminophen 325 mg tablet 650 mg PO Q6H PRN tab 03/05/20 03/20/20 History bumetanide 2 mg tablet 2 mg PO BID 03/06/20 03/06/20 History calcitriol 0.25 mcg capsule 0.25 mcg PO .M-W-F cap 03/06/20 03/06/20 History carvedilol 25 mg tablet 12.5 mg PO BID tab 03/06/20 03/20/20 History fluticasone furoate 200 1 inh INHALATION DAILY 03/06/20 03/20/20 History mcg-vilanterol 25 mcg/dose inhalation powder sodium bicarbonate 650 mg tablet 650 mg PO BID #180 tab 03/06/20 03/20/20 Rx furosemide 40 mg tablet 40 mg PO DAILY #90 tab 04/03/20 Rx Patient History Medical History (Updated 08/04/20 @ 12:16 by Brady Hassan MD) Accidental fall Anemia associated with chronic renal failure Asthma Atrial fibrillation Dx 02/2019. On Eliquis. Per Dr. Grimaldo 03/03/19 office note, suspect afib was present for a long time given significant biatrial dilatation. Cardiomyopathy Systolic CHF, EF 25-30% on echo 03/28/19 with global HK. Per cardiology consult 02/14/19, cannot exlude ischemic etiology, but may also be 2/2 prolonged tachycardia. Euvolemic on exam at PAT 09/07/19. Carotid artery stenosis without cerebral infarction < 50% bilateral carotid stenosis per 2018 imaging (*No imaging in our records but this was noted by PCP at 06/2019 office visit) Chronic kidney disease, stage 4 (severe) Cognitive impairment Daughter, Linda Dupont, primary general counsel Depression Diabetes diet controlled ESRD (end stage renal disease) on dialysis pt to do dialysis MWF [facility] [place] but has been refusing to go and according to the daughter she has not been there for about the last 2 weeks. Hip pain, left Hypertension Hypertensive urgency Hyponatremia 2/2 SIADH Hypothyroidism Osteopenia Proteinuria Psoriasis Secondary hyperparathyroidism Secondary hyperparathyroidism of renal origin SIADH (syndrome of inappropriate ADH production) Stage 5 chronic kidney disease not on chronic dialysis Systolic CHF EF 25-30% per 03/2019 echo Surgical History H/O colonoscopy History of dilatation and curettage History of vascular access device RIGHT UPPER CHEST PERMACATH FOR DIALYSIS 04/01/19 S/P arteriovenous (AV) fistula creation Jul 2019 Family History Father Heart disease Mother Diabetes Heart disease Hypertension Daughter Breast cancer Brother Hypertension Grandmother (Maternal) Family hx of colon cancer Denies family history of Ovarian cancer Colorectal cancer Colonic polyp Social History Smoking Status: Never smoker Second Hand Exposure: No; Hx Alcohol Use: No Hx Substance Use: No Preferred Language: Malay Communication Ability: Effective Machine Adjuster Leader Case Trim Required: No Beliefs That Will Affect Care: None marital status: Single Current Living Situation: Alone current occupational status: retired current occupation: [employer] Feels Safe at Home: Yes Safety Concerns: Feels Safe At This Time Assistive Devices: BiPap and Oxygen - Continuous Physical Exam Constitutional: + frail appearing; not in distress Eyes: PERRL, conjunctivae normal, anicteric sclerae Neck: trachea midline, no thyromegaly Respiratory: normal respiratory effort Auscultation: + diminished lung sounds (at bases bilaterally) Cardiovascular: Rate/Rhythm: + irregularly irregular Extremities: no edema Gastrointestinal (Abdomen): Percussion/Palpation: abdomen soft; abdomen nontender Neurologic: nonfocal Results & Data ([facility]) Vital Signs (Past 12 Hours) Vital Signs Temp Pulse Pulse Resp BP Pulse Ox 08/04/20 08:07 71 24 140/88 92 08/04/20 08:00 36.7 C 75 24 91 08/04/20 07:07 64 18 154/72 H 92 08/04/20 07:00 67 19 91 08/04/20 06:18 72 18 93 08/04/20 05:32 59 L 21 156/70 H 93 08/04/20 05:07 69 20 172/79 H 94 08/04/20 05:00 72 17 96 08/04/20 04:42 67 17 159/74 H 96 08/04/20 04:07 66 15 164/80 H 94 08/04/20 04:00 36.4 C L 71 19 93 08/04/20 03:21 73 19 95 08/04/20 03:08 64 20 95 08/04/20 03:07 69 15 146/75 H 95 08/04/20 03:00 66 17 95 08/04/20 02:08 76 18 92 08/04/20 02:07 71 22 141/87 H 92 08/04/20 02:00 72 22 94 08/04/20 01:07 70 19 149/80 H 94 08/04/20 01:00 69 20 93 08/04/20 00:07 78 20 155/68 H 92 08/04/20 00:00 36.3 C L 65 22 93 Laboratory Tests 08/04/20 08/04/20 05:07 05:07 WBC 4.60 L Hgb 9.7 L Hct 29.8 L Plt Count 178 Sodium 137 Potassium 4.5 Chloride 107 Carbon Dioxide 19 L BUN 39 H Creatinine 3.31 H Glucose 60 L Calcium 8.0 L Phosphorus 5.4 H Magnesium 3.2 H PG Care Time/CCT Total # of Minutes Spent Total Time Spent with Patient: Total time spent is greater than 50% in coordination of care (as documented) at patient's floor/unit and/or counseling patient: Coding Level of Care Code 70518 Inpt Consult Level 5 Diagnoses ESRD (end stage renal disease) N18.6 Hypertensive urgency I16.0 CHF exacerbation I50.9 Atrial fibrillation I48.91 Atrial fibrillation type: unspecified (1) Atrial fibrillation Atrial fibrillation type: unspecified Qualified Code(s): I48.91 - Unspecified atrial fibrillation
--- NOTE | 2020-08-04 12:29 | XCELERA ---
[id number]
--- NOTE | 2020-08-04 13:21 | Electrocardiogram Report ---
Test Reason : Blood Pressure : / mmHG Vent. Rate : 061 BPM Atrial Rate : 057 BPM P-R Int : 000 ms QRS Dur : 094 ms QT Int : 506 ms P-R-T Axes : 000 -47 187 degrees QTc Int : 509 ms Poor data quality, interpretation may be adversely affected Atrial fibrillation Left axis deviation Anterior infarct , age undetermined Abnormal ECG When compared with ECG of 03-AUG-2020 13:30, Non-specific change in ST segment in Lateral leads T wave inversion now evident in Inferior leads T wave inversion more evident in Anterolateral leads Confirmed by Cayetano Sheppard ([id number]) on 08/04/2020 1:21:09 PM Referred By: REFERRED SELF Confirmed By:Cayetano Sheppard
--- NOTE | 2020-08-04 18:38 | Hospitalist Progress Note ---
Date of Service August 04, 2020 Assessment & Plan (1) HFrEF (heart failure with reduced ejection fraction): Patient with history of noncompliance and systolic heart function which has left the patient with an EF of 25-30% - Patient hypertensive and volume overloaded on admission and now much improved with addition of initially IV Bumex and now IV Lasix twice daily. -Blood pressure now better controlled but remains somewhat elevated - increase in bilateral pleural effusions from last Xray in february - BNP elevated, no real good baseline to compare - BiPAP to offload workload and volume, decrease afterload and circulating volume as tolerated-now weaned off of this and is much improved from respiratory standpoint Repeat echocardiogram here with improved LVEF at 40-45%, moderate MR -Continue diuresis -Strict I's and O's, daily weights Supplemental O2 to keep pulse ox greater than 92% Appreciate cardiology consultation (2) Acute respiratory failure with hypoxia: As noted above secondary to CHF Wean off supplemental O2 as able to (3) Hypertension: Chronic-with blood pressures that remain elevated She did require 1 dose of IV labetalol this morning -Continue to diurese for volume control -Continue hydralazine and add on isosorbide 30 mg daily -Continue home amlodipine, carvedilol (4) Atrial fibrillation: Chronic, currently rate controlled but was rapid on admission Continue apixaban for chronic anticoagulation no acute needs electrolytes within range, difficult to manage with renal failure and volume status Continue carvedilol for rate control (5) Stage 5 chronic kidney disease not on chronic dialysis: Non dialysis, still makes urine and responding to diuretic therapy. - Continue sevelamer and sodium bicarb - renal indices actually look well compared to previous admissions She was previously on hemodialysis but then was noncompliant and stopped going to dialysis 1 year ago Nephrology consulted-appreciate (6) Secondary hyperparathyroidism of renal origin: No acute needs continue calcitriol (7) Mitral regurgitation: Chronic, moderate on echocardiogram here evaluate valve and heart function, do not feel that admission is directly related to acute valve failure Optimize volume off as above (8) Diabetes: Hemoglobin A1c only 5.0% in 02/2020 Blood sugar was actually low here at 60 this morning Glucose checks, goal <200 - insulin if needed (9) Hyponatremia: Chronic, full workup completed with SIADH and secondary custodial diuretic therapy versus chronic renal failure. - Normal at this time, follow closely with betsy (10) Vesicular palmoplantar eczema: Dyshidrotic eczema: - Bilateral with open areas, patient states that home health is still comming to assist with cleansing and dressing - wound care nurse consult placed-dressings are in place (11) Anxiety: Was anxious while on BiPAP, now resolved and is off BiPAP (12) Hypothyroidism: TSH is significantly elevated at 10.7, suspect noncompliance with medications Continue home dose for now encourage compliance Follow TSH in 2 to 3 weeks as an outpatient (13) Cognitive impairment: Noted to be mild in outpatient notes Supportive care (14) Anemia associated with chronic renal failure: Hemoglobin low at 9.7, macrocytic Check iron studies, B12, folate the morning (15) Metabolic acidosis: Chronic, secondary to chronic renal failure Continue sodium bicarbonate 650 mg p.o. twice daily Follow BMP (16) DVT prophylaxis: Eliquis Disposition-continued stay in ICU overnight and if stable, downgrade to PCU in the morning Admission and Anticipated Discharge Date Admission Date: August 03, 2020 Subjective Pt reports feeling much better. SOB is much improved. She denies chest pain, she is eating and drinking. Blood pressures remain elevated. I discussed her care with the kick plate installer. Telemetry with rate controlled atrial fibrillation Review of Systems Review of Systems: All systems reviewed & are unremarkable except as noted in HPI & below Physical Exam Constitutional: WD/WN, vitals as above Eyes: + anicteric sclerae ENMT: Mouth: + lip abnormality (Upper lip with chronic enlargement, varicosity) Neck: trachea midline, no thyromegaly Respiratory: normal respiratory effort Auscultation: + diminished lung sounds (At the bases) and + crackles (Bibasilar); no wheezes Cardiovascular: Rate/Rhythm: regular rate and + irregularly irregular Heart Sounds: no murmur Extremities: no edema Chest (Breasts): Chest: normal inspection of chest Gastrointestinal (Abdomen): normal bowel sounds, soft, nontender, no hepatosplenomegaly Musculoskeletal: Extremities: extremities normal to inspection; no cyanosis and no clubbing Skin: no rashes, warm and dry Neurologic: moves all extremities and awake; no focal motor deficits Psychiatric: A+Ox3, euthymic affect Lymphatic: no lymphedema Results & Data Results & Data ([facility]) Vital Signs (Past 12 Hours) Vital Signs Temp Pulse Resp BP Pulse Ox 08/04/20 18:07 63 16 170/82 H 98 08/04/20 18:00 67 16 99 08/04/20 17:08 60 19 95 08/04/20 17:07 58 L 17 152/65 H 95 08/04/20 17:00 62 15 95 08/04/20 16:07 59 L 18 153/83 H 89 L 08/04/20 16:00 62 16 89 L 08/04/20 15:08 55 L 18 165/79 H 93 08/04/20 15:00 61 12 96 08/04/20 14:08 63 13 95 08/04/20 14:07 59 L 14 148/77 H 96 08/04/20 14:00 56 L 16 96 08/04/20 13:07 57 L 16 138/78 95 08/04/20 13:00 58 L 14 96 08/04/20 12:08 70 19 96 08/04/20 12:07 68 22 152/87 H 96 08/04/20 12:00 63 19 94 08/04/20 11:07 64 15 147/77 H 90 08/04/20 11:00 57 L 14 92 08/04/20 10:07 59 L 16 167/81 H 92 08/04/20 10:00 62 15 93 08/04/20 09:07 62 17 154/86 H 94 08/04/20 09:00 69 16 95 08/04/20 08:08 66 19 90 08/04/20 08:07 71 24 140/88 92 08/04/20 08:00 36.7 C 75 24 91 08/04/20 07:07 64 18 154/72 H 92 08/04/20 07:00 67 19 91 Laboratory Results 08/04/20 08/04/20 08/04/20 Range/Units 16:42 05:41 05:07 WBC (4.8-10.8) K/uL RBC (4.2-5.4) M/uL Hgb (12.0-16.0) g/dL POC Hgb (12.0-16.0) g/dl Hct (37-47) % POC Hct (37-47) % MCV (80-100) fL MCH (25-34) pg MCHC (32-36) g/dL RDW Std Deviation (36.4-46.3) fL RDW Coeff of Carlo (11.5-14.5) % Plt Count (130-400) K/uL MPV (7.4-10.4) fL Immature Gran % (Auto) % Neut % (Auto) % Lymph % (Auto) % Lanier % (Auto) % Eos % (Auto) % Baso % (Auto) % Neut # (Auto) (1.4-6.5) K/uL Lymph # (Auto) (1.2-3.4) K/uL Lanier # (Auto) (0.11-0.59) K/uL Eos # (Auto) (0-0.5) K/uL Baso # (Auto) (0-0.2) K/uL Immature Gran # (Auto) (0.00-0.02) K/uL Sample Site POC pH (7.35-7.45) POC pCO2 (35-46) mmHg POC pO2 (80-95) mmHg POC HCO3 (19-24) gaudencio/L POC Total CO2 (24-31) mmol/L POC Base Excess (-9-1.8) gaudencio/L ABG pH (Temp Correct) (7.35-7.45) ABG pCO2 (Temp Corrct (35-46) mmHg POC ABG pO2 at Pt Temp POC ABG O2 Sat (90-95) % John Test O2 Delivery Device POC O2 Rate POC FiO2 % IPAP POC Sodium (135-144) mmol/L Sodium 137 (136-145) mmol/L POC Potassium (3.3-5.0) mmol/L Potassium 4.5 (3.5-5.1) mmol/L Chloride 107 (98-107) mmol/L Carbon Dioxide 19 L (21-32) mmol/L Anion Gap 11.0 (3-11) BUN 39 H (7-18) mg/dl Creatinine 3.31 H (0.6-1.2) mg/dl Est Cr Clr Drug Dosing 12.7 ml/min Est GFR ( Amer) 14.7 Est GFR (Non-Af Amer) 12.7 BUN/Creatinine Ratio 11.8 (10-20) Glucose 60 L (70-99) mg/dl POC Glucose 77 72 (70-99) mg/dl Lactate (0.4-2.0) mmol/L Calcium 8.0 L (8.5-10.1) mg/dl Phosphorus 5.4 H (2.5-4.9) mg/dl Magnesium 3.2 H (1.8-2.4) mg/dl Procalcitonin (0-0.5) ng/ml TSH 10.700 H (0.300-4.500) uIu/ml Nasal Screen MRSA (PCR) (Negative) 08/04/20 08/03/20 08/03/20 Range/Units 05:07 23:51 21:10 WBC 4.60 L (4.8-10.8) K/uL RBC 3.01 L (4.2-5.4) M/uL Hgb 9.7 L (12.0-16.0) g/dL POC Hgb 11.2 L (12.0-16.0) g/dl Hct 29.8 L (37-47) % POC Hct 33 L (37-47) % MCV 99.0 (80-100) fL MCH 32.2 (25-34) pg MCHC 32.6 (32-36) g/dL RDW Std Deviation 55.5 H (36.4-46.3) fL RDW Coeff of Carlo 15.4 H (11.5-14.5) % Plt Count 178 (130-400) K/uL MPV 10.1 (7.4-10.4) fL Immature Gran % (Auto) 0.9 % Neut % (Auto) 72.3 % Lymph % (Auto) 16.7 % Lanier % (Auto) 8.3 % Eos % (Auto) 1.1 % Baso % (Auto) 0.7 % Neut # (Auto) 3.33 (1.4-6.5) K/uL Lymph # (Auto) 0.77 L (1.2-3.4) K/uL Lanier # (Auto) 0.38 (0.11-0.59) K/uL Eos # (Auto) 0.05 (0-0.5) K/uL Baso # (Auto) 0.03 (0-0.2) K/uL Immature Gran # (Auto) 0.04 H (0.00-0.02) K/uL Sample Site L Radial POC pH 7.38 (7.35-7.45) POC pCO2 31 L (35-46) mmHg POC pO2 91 (80-95) mmHg POC HCO3 18 L (19-24) gaudencio/L POC Total CO2 19 L (24-31) mmol/L POC Base Excess -7.0 (-9-1.8) gaudencio/L ABG pH (Temp Correct) 7.386 (7.35-7.45) ABG pCO2 (Temp Corrct 30 L (35-46) mmHg POC ABG pO2 at Pt Temp 88 POC ABG O2 Sat 97.0 H (90-95) % John Test Pass O2 Delivery Device BIPAP POC O2 Rate 20 POC FiO2 70 % IPAP 12 POC Sodium 134 L (135-144) mmol/L Sodium (136-145) mmol/L POC Potassium 4.5 (3.3-5.0) mmol/L Potassium (3.5-5.1) mmol/L Chloride (98-107) mmol/L Carbon Dioxide (21-32) mmol/L Anion Gap (3-11) BUN (7-18) mg/dl Creatinine (0.6-1.2) mg/dl Est Cr Clr Drug Dosing ml/min Est GFR ( Amer) Est GFR (Non-Af Amer) BUN/Creatinine Ratio (10-20) Glucose (70-99) mg/dl POC Glucose 90 (70-99) mg/dl Lactate (0.4-2.0) mmol/L Calcium (8.5-10.1) mg/dl Phosphorus (2.5-4.9) mg/dl Magnesium (1.8-2.4) mg/dl Procalcitonin (0-0.5) ng/ml TSH (0.300-4.500) uIu/ml Nasal Screen MRSA (PCR) (Negative) 08/03/20 08/03/20 08/03/20 Range/Units 20:48 20:48 20:25 WBC (4.8-10.8) K/uL RBC (4.2-5.4) M/uL Hgb (12.0-16.0) g/dL POC Hgb (12.0-16.0) g/dl Hct (37-47) % POC Hct (37-47) % MCV (80-100) fL MCH (25-34) pg MCHC (32-36) g/dL RDW Std Deviation (36.4-46.3) fL RDW Coeff of Carlo (11.5-14.5) % Plt Count (130-400) K/uL MPV (7.4-10.4) fL Immature Gran % (Auto) % Neut % (Auto) % Lymph % (Auto) % Lanier % (Auto) % Eos % (Auto) % Baso % (Auto) % Neut # (Auto) (1.4-6.5) K/uL Lymph # (Auto) (1.2-3.4) K/uL Lanier # (Auto) (0.11-0.59) K/uL Eos # (Auto) (0-0.5) K/uL Baso # (Auto) (0-0.2) K/uL Immature Gran # (Auto) (0.00-0.02) K/uL Sample Site POC pH (7.35-7.45) POC pCO2 (35-46) mmHg POC pO2 (80-95) mmHg POC HCO3 (19-24) gaudencio/L POC Total CO2 (24-31) mmol/L POC Base Excess (-9-1.8) gaudencio/L ABG pH (Temp Correct) (7.35-7.45) ABG pCO2 (Temp Corrct (35-46) mmHg POC ABG pO2 at Pt Temp POC ABG O2 Sat (90-95) % John Test O2 Delivery Device POC O2 Rate POC FiO2 % IPAP POC Sodium (135-144) mmol/L Sodium (136-145) mmol/L POC Potassium (3.3-5.0) mmol/L Potassium (3.5-5.1) mmol/L Chloride (98-107) mmol/L Carbon Dioxide (21-32) mmol/L Anion Gap (3-11) BUN (7-18) mg/dl Creatinine (0.6-1.2) mg/dl Est Cr Clr Drug Dosing ml/min Est GFR ( Amer) Est GFR (Non-Af Amer) BUN/Creatinine Ratio (10-20) Glucose (70-99) mg/dl POC Glucose (70-99) mg/dl Lactate 1.4 (0.4-2.0) mmol/L Calcium (8.5-10.1) mg/dl Phosphorus (2.5-4.9) mg/dl Magnesium (1.8-2.4) mg/dl Procalcitonin 0.10 (0-0.5) ng/ml TSH (0.300-4.500) uIu/ml Nasal Screen MRSA (PCR) Positive A (Negative) PG Care Time/CCT Total # of Minutes Spent Total Time Spent with Patient: Total time spent is greater than 50% in coordination of care (as documented) at patient's floor/unit and/or counseling patient: Coding Level of Care Code 86862 Subseq Hosp Care Lvl 3 Diagnoses HFrEF (heart failure with reduced ejection fraction) I50.20 Heart failure chronicity: unspecified Acute respiratory failure with hypoxia J96.01 Hypertension I15.1; N28.89 Hypertension type: secondary to other renal disorders Atrial fibrillation I48.91 Atrial fibrillation type: unspecified Stage 5 chronic kidney disease not on chronic dialysis N18.5 Secondary hyperparathyroidism of renal origin N25.81 Mitral regurgitation I34.0 Cardiac valve disease etiology: etiology unspecified Diabetes E11.22; N18.5 Chronic kidney disease stage: stage 5, not on chronic dialysis Diabetes mellitus complication detail: with chronic kidney disease Diabetes mellitus complication status: with kidney complications Diabetes mellitus custodial insulin use: without custodial use Diabetes mellitus type: type 2 Hyponatremia E87.1 Vesicular palmoplantar eczema L30.1 Anxiety F41.9 Hypothyroidism E03.9 Hypothyroidism type: acquired Cognitive impairment R41.89 Anemia associated with chronic renal failure D63.1 Metabolic acidosis E87.2 DVT prophylaxis Z29.9 (1) Diabetes Chronic kidney disease stage: stage 5, not on chronic dialysis Diabetes mellitus complication detail: with chronic kidney disease Diabetes mellitus complication status: with kidney complications Diabetes mellitus custodial insulin use: without custodial use Diabetes mellitus type: type 2 Qualified Code(s): E11.22 - Type 2 diabetes mellitus with diabetic chronic kidney disease; N18.5 - Chronic kidney disease, stage 5 (2) Atrial fibrillation Atrial fibrillation type: unspecified Qualified Code(s): I48.91 - Unspecified atrial fibrillation (3) Hypothyroidism Hypothyroidism type: acquired Qualified Code(s): E03.9 - Hypothyroidism, unspecified (4) Mitral regurgitation Cardiac valve disease etiology: etiology unspecified Qualified Code(s): I34.0 - Nonrheumatic mitral (valve) insufficiency (5) HFrEF (heart failure with reduced ejection fraction) Heart failure chronicity: unspecified Qualified Code(s): I50.20 - Unspecified systolic (congestive) heart failure (6) Hypertension Hypertension type: secondary to other renal disorders Qualified Code(s): I15.1 - Hypertension secondary to other renal disorders; N28.89 - Other specified disorders of kidney and ureter
[2020-08-05 05:10] LABS: Basophils # (auto) 0.01 K/uL (0-0.2); Basophils % (auto) 0.3 %; Eosinophils # (auto) 0.17 K/uL (0-0.5); Eosinophils % (auto) 4.5 %; Hematocrit (blood only) 28.7 % (37-47); Hemoglobin 9.3 g/dL (12.0-16.0); Immature Granulocytes # (auto) 0.02 K/uL (0.00-0.02); Immature Granulocytes % (auto) 0.5 %; Lymphocytes # (auto) 0.81 K/uL (1.2-3.4); Lymphocytes % (auto) 21.7 %; Mean Corpuscular Hemoglobin 32.1 pg (25-34); Mean Corpuscular Hgb Conc 32.4 g/dL (32-36); Mean Platelet Volume 10.4 fL (7.4-10.4); Neutrophils # (auto) 2.43 K/uL (1.4-6.5); Platelet Count 170 K/uL (130-400); RDW Coefficient of Variation 15.4 % (11.5-14.5); RDW Standard Deviation 55.5 fL (36.4-46.3); White Blood Count 3.74 K/uL (4.8-10.8)
[2020-08-05 05:44] LABS: Blood Urea Nitrogen 44 mg/dl (7-18); Calcium 7.8 mg/dl (8.5-10.1); Carbon Dioxide 23 mmol/L (21-32); Chloride 106 mmol/L (98-107); Creatinine Clr Calc Pharmacy 11.5 ml/min; Est GFR (African American) 13.1; Est GFR (Non-African American) 11.3; Glucose 59 mg/dl (70-99); Magnesium 3.1 mg/dl (1.8-2.4); Potassium 4.1 mmol/L (3.5-5.1); Sodium 136 mmol/L (136-145)
[2020-08-05] MEDS: LEVOTHYROXINE SODIUM 175 MCG TABLET PO SCH (05:47)
[2020-08-05 05:51] LABS: Ferritin 315.7 ng/ml (8-388); Iron 36 mcg/dl (35-150); NT Pro B Type Natriuretic Pept > 35000 pg/ml (0-1800); Phosphorus 5.1 mg/dl (2.5-4.9); Total Iron Binding Capacity 153 mcg/dl (250-450); Transferrin 126 mg/dl (200-360); Transferrin Percent Saturation 20 % (15-50)
[2020-08-05 06:43] LABS: Folate (Folic Acid) > 20.00 ng/ml (>5.38); Vitamin B12 1361 pg/ml (193-986)
[2020-08-05] MEDS: hydrALAZINE HCL 25 MG TAB PO SCH ×3 (07:59→20:08)
[2020-08-05] MEDS: SEVELAMER HCL 800 MG TABLET PO SCH ×3 (07:59→16:44)
[2020-08-05] MEDS: carvediloL 25 MG TAB PO SCH ×2 (07:59→20:09)
[2020-08-05] MEDS: FOLIC ACID 1 MG TAB PO SCH (08:00)
[2020-08-05] MEDS: ISOSORBIDE MONO EXTENDED REL 30 MG TABCR PO SCH (08:00)
[2020-08-05] MEDS: ASPIRIN 81 MG ECTAB PO SCH (08:00)
[2020-08-05] MEDS: LIDOCAINE 5% 1 PATCH TD SCH (08:00)
[2020-08-05] MEDS: APIXABAN 2.5 MG TAB PO SCH ×2 (08:00→20:09)
[2020-08-05] MEDS: BETAMETHASONE VAL 0.1% CR 15 GM EXT SCH ×2 (08:01→20:11)
[2020-08-05] MEDS: SODIUM BICARBONATE 650 MG TAB PO SCH ×2 (08:01→20:09)
[2020-08-05] MEDS: amLODIPine BESYLATE 5 MG TAB PO SCH (08:01)
[2020-08-05] MEDS: FUROSEMIDE 40 MG in SYRINGE 0 ML IV SCH ×2 (08:03→16:44)
[2020-08-05] MEDS: FLUTICASONE/VILANTEROL 200/25MCG 14 PUFFS/INHALER INH SCH (08:03)
--- NOTE | 2020-08-05 09:19 | Nephrology Progress Note ---
Date of Service August 05, 2020 Assessment & Plan (1) ESRD (end stage renal disease): * Electrolyte balance is acceptable. No acute indication for HD * Net negative 755 cc last 24 hours. Continue IV Furosemide today. Consider transitioning to oral Bumex in am and removing page catheter * Discussed advanced renal impairment and possible HD in detail w/ patient yesterday. She indicates that she would not accept HD if her condition worsens * Palliative care has been consulted to establish goals of care and obtain POLST. Await their input. Patient does not desire heroic measures and only wants conservative medical management in the setting of her kidney failure * Monitor PRP (2) Hypertensive urgency: * BP improved. Agree w/ resuming home medical regimen. Suspect exacerbation of HTN and CHF in part related to poor adherence to medical re gimen and dietary Na restriction (3) CHF exacerbation: * Improved. Continue IV Furosemide. Wean O2 as tolerated (4) Atrial fibrillation: * HR controlled * On Apixaban Admission and Anticipated Discharge Date Admission Date: August 03, 2020 Subjective Ms. Figueroa was seen & examined in the ICU this morning. She reports that her breathing is improved and she is now down to O2 at 2L/min NC. Ms. Figueroa is anxious to begin physical therapy this morning. Review of Systems Constitutional: + weakness; no fever Eyes: no problem reported Ear, Nose, Mouth, Throat: no problem reported Respiratory: + dyspnea and + dyspnea on exertion Cardiovascular: no chest pain, no palpitations and no edema Gastrointestinal: no abdominal pain and no nausea Genitourinary: no dysuria Musculoskeletal: no back pain Integumentary: no rash Neurologic: no confusion Physical Exam Constitutional: + frail appearing; not in distress Eyes: PERRL, conjunctivae normal, anicteric sclerae Neck: trachea midline, no thyromegaly Respiratory: normal respiratory effort Auscultation: + diminished lung sounds (at bases bilaterally) Cardiovascular: Rate/Rhythm: + irregularly irregular Extremities: no edema Gastrointestinal (Abdomen): Percussion/Palpation: abdomen soft; abdomen nontender Results & Data ([facility]) Vital Signs (Past 12 Hours) Vital Signs Temp Pulse Resp BP Pulse Ox 08/05/20 08:08 68 19 119/61 90 08/05/20 08:00 68 20 90 08/05/20 07:08 66 15 135/73 93 08/05/20 07:00 63 19 96 08/05/20 04:07 62 17 147/76 H 95 08/05/20 04:00 36.8 C 64 21 96 08/05/20 03:07 59 L 17 147/74 H 95 08/05/20 03:00 68 19 97 08/05/20 02:08 61 16 148/66 H 94 08/05/20 02:00 56 L 14 96 08/05/20 01:13 71 15 93 08/05/20 01:12 80 17 152/67 H 93 08/05/20 01:00 63 17 08/05/20 00:09 60 17 94 08/05/20 00:08 62 16 154/63 H 94 08/05/20 00:01 62 15 95 08/05/20 00:00 36.7 C 64 15 156/66 H 95 08/04/20 23:07 58 L 15 156/66 H 96 08/04/20 23:00 62 15 96 08/04/20 22:50 61 08/04/20 22:07 60 18 143/96 H 08/04/20 22:00 62 15 Laboratory Tests 08/05/20 08/05/20 08/05/20 04:42 04:42 04:42 WBC 3.74 L Hgb 9.3 L Hct 28.7 L Plt Count 170 Sodium 136 Potassium 4.1 Chloride 106 Carbon Dioxide 23 BUN 44 H Creatinine 3.65 H D Calcium 7.8 L Phosphorus 5.1 H Transferrin % Sat 20 Ferritin 315.7 NT-Pro-B Natriuret Pep > 78700 H Vitamin B12 1361 H Folate > 20.00 PG Care Time/CCT Total # of Minutes Spent Total Time Spent with Patient: Total time spent is greater than 50% in coordination of care (as documented) at patient's floor/unit and/or counseling patient: Coding Level of Care Code 38979 Subseq Hosp Care Lvl 3 Diagnoses ESRD (end stage renal disease) N18.6 Hypertensive urgency I16.0 CHF exacerbation I50.9 Atrial fibrillation I48.91 Atrial fibrillation type: unspecified (1) Atrial fibrillation Atrial fibrillation type: unspecified Qualified Code(s): I48.91 - Unspecified atrial fibrillation
--- NOTE | 2020-08-05 11:38 | Cardiology Progress Note ---
Date of Service August 05, 2020 Assessment & Plan (1) CHF exacerbation: -continues to improve with intravenous diuretics -suspect noncompliance etiology of her decompensation. -continue carvedilol and hydralazine -no ARB or ACEI due to renal failure -started on isosorbide mononitrate. (2) Cardiomyopathy: -echocardiogram notes LVEF of 40-45% -initially thought to be tachycardic induced -continue conservative medical management (3) Atrial fibrillation: -ventricular response elevated on presentation secondary to her decompensated state -rate now adequately controlled on carvedilol -continue renally adjusted [facility] Admission and Anticipated Discharge Date Admission Date: August 03, 2020 Subjective Patient is resting comfortably in bed without complaints of chest pain or dyspnea. Physical Exam Physical Exam: In general is a well-developed well-nourished white female lying supine in bed without complaints. HEENT exam notes edema of the upper lip. Neck is supple with full carotid upstrokes. No obvious bruits. No JVD. Cardiovascular exam reveals an irregularly irregular rhythm with distant heart sounds. No obvious murmurs. Lungs note decreased breath sounds at the bases but no rales. Abdomen is soft without bruits. Extremities reveal intact radial artery pulses bilaterally. There is no peripheral edema. Results & Data ([facility]) Vital Signs (Past 12 Hours) Vital Signs Temp Pulse Resp BP Pulse Ox 08/05/20 08:08 68 19 119/61 90 08/05/20 08:00 36.7 C 68 20 90 08/05/20 07:08 66 15 135/73 93 08/05/20 07:00 63 19 96 08/05/20 04:07 62 17 147/76 H 95 08/05/20 04:00 36.8 C 64 21 96 08/05/20 03:07 59 L 17 147/74 H 95 08/05/20 03:00 68 19 97 08/05/20 02:08 61 16 148/66 H 94 08/05/20 02:00 56 L 14 96 08/05/20 01:13 71 15 93 08/05/20 01:12 80 17 152/67 H 93 08/05/20 01:00 63 17 08/05/20 00:09 60 17 94 08/05/20 00:08 62 16 154/63 H 94 08/05/20 00:01 62 15 95 08/05/20 00:00 36.7 C 64 15 156/66 H 95 Diagnostic Findings concrete rubber notes rate controlled atrial fibrillation. PG Care Time/CCT Total # of Minutes Spent Total Time Spent with Patient: Total time spent is greater than 50% in coordination of care (as documented) at patient's floor/unit and/or counseling patient: Coding Level of Care Code 99343 Subseq Hosp Care Lvl 3 Diagnoses CHF exacerbation I50.9 Cardiomyopathy I42.9 Atrial fibrillation I48.91 Atrial fibrillation type: unspecified (1) Atrial fibrillation Atrial fibrillation type: unspecified Qualified Code(s): I48.91 - Unspecified atrial fibrillation
--- NOTE | 2020-08-05 12:40 | Electrocardiogram Report ---
Test Reason : Blood Pressure : / mmHG Vent. Rate : 065 BPM Atrial Rate : 000 BPM P-R Int : 000 ms QRS Dur : 100 ms QT Int : 474 ms P-R-T Axes : 000 -48 200 degrees QTc Int : 492 ms Atrial fibrillation Left axis deviation Minimal voltage criteria for LVH, may be normal variant Poor R wave progression, consider anterior CT vs. lead placement vs. LVH T wave abnormality, consider lateral ischemia Prolonged QT Abnormal ECG When compared with ECG of 04-AUG-2020 06:55, No significant change Confirmed by Cayetano Sheppard ([id number]) on 08/05/2020 12:40:35 PM Referred By: REFERRED SELF Confirmed By:Cayetano Sheppard
--- NOTE | 2020-08-05 16:58 | Hospitalist Progress Note ---
Date of Service August 05, 2020 Assessment & Plan (1) HFrEF (heart failure with reduced ejection fraction): Patient with history of noncompliance and systolic heart function which has left the patient with an EF of 25-30% - Patient hypertensive and volume overloaded on admission and now much improved with addition of initially IV Bumex and then IV Lasix twice daily. -Blood pressure now better controlled but remains somewhat elevated - increase in bilateral pleural effusions from last chest xray in february - BNP elevated, no real good baseline to compare -Initially was on BiPAP to offload workload and volume, decrease afterload and circulating volume as tolerated-now weaned off of this and is much improved from respiratory standpoint-weaned to room air Repeat echocardiogram here with improved LVEF at 40-45%, moderate MR -Continue diuresis with IV Lasix today and then convert to her home Bumex 2 mg p.o. twice daily tomorrow -Continue improved blood pressure control-added isosorbide -Strict I's and O's, daily weights Appreciate cardiology and nephrology consultations If continues to do well, can likely be discharged to home on Thursday (2) Acute respiratory failure with hypoxia: As noted above secondary to CHF Now resolved after diuresis (3) Hypertension: Chronic-with blood pressures that remain elevated but improved from previous She did require 1 dose of IV labetalol this admission -Continue to diurese for volume control -Continue hydralazine and added on isosorbide 30 mg daily -Continue home amlodipine, carvedilol (4) Atrial fibrillation: Chronic, currently rate controlled but was rapid on admission Continue apixaban for chronic anticoagulation no acute needs electrolytes within range, difficult to manage with renal failure and volume status Continue carvedilol for rate control (5) Stage 5 chronic kidney disease not on chronic dialysis: Non dialysis, still makes urine and responding to diuretic therapy. Creatinine fairly stable to mildly elevated from previous today at 3.65 other electrolytes acceptable She was previously on hemodialysis but then was noncompliant and stopped going to dialysis 1 year ago - Continue sevelamer and sodium bicarb - renal indices actually look good compared to previous admissions Nephrology consulted-appreciate Palliative care consultation requested to discuss goals of care and follow-up POLST form prior to discharge (6) Secondary hyperparathyroidism of renal origin: No acute needs continue calcitriol (7) Mitral regurgitation: Chronic, moderate on echocardiogram here evaluate valve and heart function, do not feel that admission is directly related to acute valve failure Optimize volume off as above (8) Diabetes: Hemoglobin A1c only 5.0% in 02/2020 Blood sugar was actually low here at times Glucose checks, goal <200 - insulin if needed (9) Hyponatremia: Chronic, full workup completed with SIADH and secondary termite control service representative diuretic therapy versus chronic renal failure. - Normal at this time, follow closely with diuresing (10) Vesicular palmoplantar eczema: Dyshidrotic eczema: - Bilateral feet with open areas, patient states that home health is still coming to assist with cleansing and dressing - wound care nurse consult placed-dressings are in place-continue home health after discharge (11) Anxiety: Was anxious while on BiPAP, now resolved and is off BiPAP (12) Hypothyroidism: TSH is significantly elevated at 10.7, suspect noncompliance with medications although she denies this and reports that she takes her levothyroxine every day on an empty stomach Increase levothyroxine to 200 mcg once daily Follow TSH in 3-4 weeks as an outpatient (13) Cognitive impairment: Noted to be mild in outpatient notes Supportive care (14) Anemia associated with chronic renal failure: Hemoglobin low at 9.3, macrocytic iron studies, B12, folate all normal Treating hypothyroidism as above (15) Metabolic acidosis: Chronic, secondary to chronic renal failure-improved today at 23 Continue sodium bicarbonate 650 mg p.o. twice daily Follow BMP (16) DVT prophylaxis: Eliquis Disposition-downgrade out of ICU to PCU, most likely can be discharged to home on Thursday if continues to do well PT/OT consultations placed Admission and Anticipated Discharge Date Admission Date: August 03, 2020 Subjective Patient feels excellent today, she is weaned off oxygen. She is eating and drinking. Denies chest pain or shortness of breath. Castillo catheter remains in place. She reports she can get around just fine and is anxious to get home tomorrow. Remains on IV Lasix and is making urine. I reviewed nephrology and cardiology notes. Telemetry with atrial fibrillation in the 50s-70s with occasional PVCs Review of Systems Review of Systems: All systems reviewed & are unremarkable except as noted in HPI & below Physical Exam Constitutional: WD/WN, vitals as above Eyes: + anicteric sclerae ENMT: Mouth: + lip abnormality (Upper lip with chronic enlargement, varicosity) Neck: trachea midline, no thyromegaly Respiratory: normal respiratory effort Auscultation: + diminished lung sounds (At the bases); no wheezes Cardiovascular: Rate/Rhythm: regular rate and + irregularly irregular Heart Sounds: no murmur Extremities: no edema Chest (Breasts): Chest: normal inspection of chest Gastrointestinal (Abdomen): normal bowel sounds, soft, nontender, no hepatosplenomegaly Musculoskeletal: Extremities: extremities normal to inspection; no cyanosis and no clubbing Skin: no rashes, warm and dry Neurologic: moves all extremities and awake; no focal motor deficits Psychiatric: A+Ox3, euthymic affect Lymphatic: no lymphedema Results & Data Results & Data ([facility]) Vital Signs (Past 12 Hours) Vital Signs Temp Pulse Pulse Resp BP BP Pulse Ox 08/05/20 15:27 36.4 C L 70 20 149/77 H 93 08/05/20 14:50 66 08/05/20 13:04 08/05/20 12:44 36.4 C L 70 18 127/71 92 08/05/20 12:00 65 18 119/73 94 08/05/20 08:08 68 19 119/61 90 08/05/20 08:00 36.7 C 68 20 90 08/05/20 07:08 66 15 135/73 93 08/05/20 07:00 63 19 96 Pulse Ox 08/05/20 15:27 08/05/20 14:50 08/05/20 13:04 93 08/05/20 12:44 08/05/20 12:00 08/05/20 08:08 08/05/20 08:00 08/05/20 07:08 08/05/20 07:00 Laboratory Results 08/05/20 08/05/20 08/05/20 Range/Units 06:14 04:42 04:42 WBC (4.8-10.8) K/uL RBC (4.2-5.4) M/uL Hgb (12.0-16.0) g/dL Hct (37-47) % MCV (80-100) fL MCH (25-34) pg MCHC (32-36) g/dL RDW Std Deviation (36.4-46.3) fL RDW Coeff of Carlo (11.5-14.5) % Plt Count (130-400) K/uL MPV (7.4-10.4) fL Immature Gran % (Auto) % Neut % (Auto) % Lymph % (Auto) % [place] % (Auto) % Eos % (Auto) % Baso % (Auto) % Neut # (Auto) (1.4-6.5) K/uL Lymph # (Auto) (1.2-3.4) K/uL [place] # (Auto) (0.11-0.59) K/uL Eos # (Auto) (0-0.5) K/uL Baso # (Auto) (0-0.2) K/uL Immature Gran # (Auto) (0.00-0.02) K/uL Sodium 136 (136-145) mmol/L Potassium 4.1 (3.5-5.1) mmol/L Chloride 106 (98-107) mmol/L Carbon Dioxide 23 (21-32) mmol/L Anion Gap 7.0 (3-11) BUN 44 H (7-18) mg/dl Creatinine 3.65 H D (0.6-1.2) mg/dl Est Cr Clr Drug Dosing 11.5 ml/min Est GFR ( Amer) 13.1 Est GFR (Non-Af Amer) 11.3 BUN/Creatinine Ratio 12.0 (10-20) Glucose 59 L (70-99) mg/dl POC Glucose 72 (70-99) mg/dl Calcium 7.8 L (8.5-10.1) mg/dl Phosphorus 5.1 H (2.5-4.9) mg/dl Magnesium 3.1 H (1.8-2.4) mg/dl Iron 36 (35-150) mcg/dl TIBC 153 L (250-450) mcg/dl Transferrin 126 L (200-360) mg/dl Transferrin % Sat 20 (15-50) % Ferritin 315.7 (8-388) ng/ml NT-Pro-B Natriuret Pep > 04279 H (0-1800) pg/ml Vitamin B12 1361 H (193-986) pg/ml Folate > 20.00 (>5.38) ng/ml 08/05/20 08/05/20 Range/Units 04:42 00:09 WBC 3.74 L (4.8-10.8) K/uL RBC 2.90 L (4.2-5.4) M/uL Hgb 9.3 L (12.0-16.0) g/dL Hct 28.7 L (37-47) % MCV 99.0 (80-100) fL MCH 32.1 (25-34) pg MCHC 32.4 (32-36) g/dL RDW Std Deviation 55.5 H (36.4-46.3) fL RDW Coeff of Carlo 15.4 H (11.5-14.5) % Plt Count 170 (130-400) K/uL MPV 10.4 (7.4-10.4) fL Immature Gran % (Auto) 0.5 % Neut % (Auto) 65.0 % Lymph % (Auto) 21.7 % [place] % (Auto) 8.0 % Eos % (Auto) 4.5 % Baso % (Auto) 0.3 % Neut # (Auto) 2.43 (1.4-6.5) K/uL Lymph # (Auto) 0.81 L (1.2-3.4) K/uL [place] # (Auto) 0.30 (0.11-0.59) K/uL Eos # (Auto) 0.17 (0-0.5) K/uL Baso # (Auto) 0.01 (0-0.2) K/uL Immature Gran # (Auto) 0.02 (0.00-0.02) K/uL Sodium (136-145) mmol/L Potassium (3.5-5.1) mmol/L Chloride (98-107) mmol/L Carbon Dioxide (21-32) mmol/L Anion Gap (3-11) BUN (7-18) mg/dl Creatinine (0.6-1.2) mg/dl Est Cr Clr Drug Dosing ml/min Est GFR ( Amer) Est GFR (Non-Af Amer) BUN/Creatinine Ratio (10-20) Glucose (70-99) mg/dl POC Glucose 87 (70-99) mg/dl Calcium (8.5-10.1) mg/dl Phosphorus (2.5-4.9) mg/dl Magnesium (1.8-2.4) mg/dl Iron (35-150) mcg/dl TIBC (250-450) mcg/dl Transferrin (200-360) mg/dl Transferrin % Sat (15-50) % Ferritin (8-388) ng/ml NT-Pro-B Natriuret Pep (0-1800) pg/ml Vitamin B12 (193-986) pg/ml Folate (>5.38) ng/ml PG Care Time/CCT Total # of Minutes Spent Total Time Spent with Patient: Total time spent is greater than 50% in coordination of care (as documented) at patient's floor/unit and/or counseling patient: Coding Level of Care Code 59063 Subseq Hosp Care Lvl 3 Diagnoses HFrEF (heart failure with reduced ejection fraction) I50.20 Heart failure chronicity: unspecified Acute respiratory failure with hypoxia J96.01 Hypertension I15.1; N28.89 Hypertension type: secondary to other renal disorders Atrial fibrillation I48.91 Atrial fibrillation type: unspecified Stage 5 chronic kidney disease not on chronic dialysis N18.5 Secondary hyperparathyroidism of renal origin N25.81 Mitral regurgitation I34.0 Cardiac valve disease etiology: etiology unspecified Diabetes E11.22; N18.5 Diabetes mellitus type: type 2 Diabetes mellitus chcf insulin use: without termite control service representative use Diabetes mellitus complication status: with kidney complications Diabetes mellitus complication detail: with chronic kidney disease Chronic kidney disease stage: stage 5, not on chronic dialysis Hyponatremia E87.1 Vesicular palmoplantar eczema L30.1 Anxiety F41.9 Hypothyroidism E03.9 Hypothyroidism type: acquired Cognitive impairment R41.89 Anemia associated with chronic renal failure D63.1 Metabolic acidosis E87.2 DVT prophylaxis Z29.9 (1) HFrEF (heart failure with reduced ejection fraction) Heart failure chronicity: unspecified Qualified Code(s): I50.20 - Unspecified systolic (congestive) heart failure (2) Hypertension Hypertension type: secondary to other renal disorders Qualified Code(s): I15.1 - Hypertension secondary to other renal disorders; N28.89 - Other specified disorders of kidney and ureter (3) Atrial fibrillation Atrial fibrillation type: unspecified Qualified Code(s): I48.91 - Unspecified atrial fibrillation (4) Mitral regurgitation Cardiac valve disease etiology: etiology unspecified Qualified Code(s): I34.0 - Nonrheumatic mitral (valve) insufficiency (5) Diabetes Diabetes mellitus type: type 2 Diabetes mellitus termite control service representative insulin use: without chcf use Diabetes mellitus complication status: with kidney complications Diabetes mellitus complication detail: with chronic kidney disease Chronic kidney disease stage: stage 5, not on chronic dialysis Qualified Code(s): E11.22 - Type 2 diabetes mellitus with diabetic chronic kidney disease; N18.5 - Chronic kidney disease, stage 5 (6) Hypothyroidism Hypothyroidism type: acquired Qualified Code(s): E03.9 - Hypothyroidism, unspecified
--- NOTE | 2020-08-05 20:53 | Emergency Department Note ---
Impression & Plan CHF (congestive heart failure), Atrial fibrillation with RVR, CKD (chronic kidney disease) stage 5, GFR less than 15 ml/min ED Provider Note NAME: SHYAM DANGELO AGE: 79 SEX: F ARRIVES VIA: Ambulance INFORMANT: Patient ED PROVIDER(S): Megan Guerrero MD CHIEF COMPLAINT: SOB x 5 days PLAN: Disposition:Inpatient Condition: Guarded Referral: Hospitalist MEDICAL DECISION MAKING: This pt was evaluated and appeared to be in no distress. IV access was obtained and lab work was drawn. Pt was stable on n/c O2 but noted to be in rapid atrial fibrillation. EKG reveals no acute ischemia. Pt was medicated with IV metoprolol and po hydralazine. CXR reveals pulmonary vascular congestion. IV lasix was ordered. Pt developed increased O2 requirement and was placed on bipap. topical NTG paste was applied. Pt was reevaluated and much improved. COVID swab was negative. Pt's case was d/w the hospitalist service for further management. Triage Nursing notes reviewed. Prior medical records reviewed. Vital Signs: reviewed and remarkable for tachycardia, hypoxia Differential diagnosis: Reactive airway disease, pneumonia, pneumothorax, COPD, CHF, infections, cardiac ischemia, pulmonary embolism, musculoskeletal, gastrointestinal, as well as other pathologies. ER treatment provided: IV lasix IV metoprolol po hydralazine NTG paste n/c O2->bipap Diagnostics interpreted by me: ECG: atrial fibrillation with RVR at 124 bpm. LAD, QTc slightly prolonged at 488. LVH w repolarization abnl. No PVC, no PAC Cardiac Monitoring: An order for cardiac monitoring was placed and pt is noted to be in a rapid atrial fibrillation at 123 bpm. Laboratory studies: See below Imaging studies: XR chest 1V portable CLINICAL HISTORY: Dyspnea COMPARISON STUDY: 02/21/2020 FINDINGS: The heart is enlarged. There is mild pulmonary vascular congestion. There are bilateral pleural effusions with associated basilar airspace opacities atelectatic versus infectious/inflammatory. There are postinflammatory calcifications within the right lung apex.[ IMPRESSION: 1. Cardiomegaly and radiographic evidence of mild congestive failure/fluid overload 2. Bilateral pleural effusions with associated basilar airspace opacities ACT 112: Negative or not required by law. Electronically signed by: Marek Garcia M.D. 08/03/2020 2:14 PM Dictated: 08/03/20 1413Transcribed: 08/03/201412 Consultation(s): hospitalist HPI: 79/F arrives for evaluation of SOB, particularly with exertion over the last 5 days. Pt resides at home and does not wear home O2. She has a h/o atrial fib and CKD. She states she has been taking her medications and last took them this morning. Pt denies COVID exposure. Pt denies fever, CP, and pain, vomiting and diarrhea. ROS: See above HPI for pertinent positives & negatives. A total of 10 systems reviewed and were otherwise negative. PAST MEDICAL HISTORY:See below PAST SURGICAL HISTORY:See below FAMILY HISTORY:See below SOCIAL HISTORY:See below HOME MEDICATIONS:See below ALLERGIES:See below VITALS:See below PHYSICAL EXAMINATION: Vital signs reviewed. General: Chronically ill -appearing 79 yo female, in no significant distress. HEENT: No scleral icterus, PERRLA, neck supple. Atraumatic. Cardiovascular: Rapid and irregular, no extra sounds. Pulmonary: crackles to bases bilaterally, increased work of breathing on n/c O2. Abdomen: Soft, nontender, nondistended, positive bowel sounds. Musculoskeletal: Atraumatic, no peripheral edema. Neurologic: Patient awake alert and oriented x 3 Skin: Warm, dry, no rash The high probability of a clinically significant, sudden or life threatening deterioration required my full and direct attention, intervention and personal management. The aggregate critical care time was 40 minutes. This time is in addition to time spent performing reported procedures but includes the following: [x] Data Review and interpretation [x] Patient assessment and monitoring of vital signs [x] Documentation [x] Medication orders and management Megan Guerrero MD Past Med/Surg History Medical History Accidental fall Anemia associated with chronic renal failure Asthma Atrial fibrillation Dx 02/2019. On Eliquis. Per Dr. Grimaldo 03/03/19 office note, suspect afib was present for a long time given significant biatrial dilatation. Cardiomyopathy Systolic CHF, EF 25-30% on echo 03/28/19 with global HK. Per cardiology consult 02/14/19, cannot exlude ischemic etiology, but may also be 2/2 prolonged tachycardia. Euvolemic on exam at PAT 09/07/19. Carotid artery stenosis without cerebral infarction < 50% bilateral carotid stenosis per 2018 imaging (*No imaging in our records but this was noted by PCP at 06/2019 office visit) Chronic kidney disease, stage 4 (severe) Cognitive impairment Daughter, Linda Dupont, primary agriculture mechanic Depression Diabetes diet controlled ESRD (end stage renal disease) on dialysis pt to do dialysis MWF [facility] but has been refusing to go and according to the daughter she has not been there for about the last 2 weeks. Hip pain, left Hypertension Hypertensive urgency Hyponatremia 2/2 SIADH Hypothyroidism Osteopenia Proteinuria Psoriasis Secondary hyperparathyroidism Secondary hyperparathyroidism of renal origin SIADH (syndrome of inappropriate ADH production) Stage 5 chronic kidney disease not on chronic dialysis Systolic CHF EF 25-30% per 03/2019 echo Surgical History H/O colonoscopy History of dilatation and curettage History of vascular access device RIGHT UPPER CHEST PERMACATH FOR DIALYSIS 04/01/19 S/P arteriovenous (AV) fistula creation Jul 2019 Family History Father Heart disease Mother Diabetes Heart disease Hypertension Daughter Breast cancer Brother Hypertension Grandmother (Maternal) Family hx of colon cancer Denies family history of Ovarian cancer Colorectal cancer Colonic polyp Social History Smoking Status: Never smoker Second Hand Exposure: No; Hx Alcohol Use: No Hx Substance Use: No Preferred Language: Ecuadorean Communication Ability: Effective Deputy Clerk Required: No Beliefs That Will Affect Care: None marital status: Single Current Living Situation: Alone current occupational status: retired current occupation: [employer] Feels Safe at Home: Yes Safety Concerns: Feels Safe At This Time Assistive Devices: Cane Allergies Allergies Allergy/AdvReac Type Severity Reaction Status Date / Time doxycycline Allergy Unknown Hives Verified 08/03/20 14:32 labetalol Allergy Unknown tired and Verified 08/03/20 14:32 depressed lorazepam Allergy Unknown "SQUIRRELLY Verified 08/03/20 14:32 " Pork/Porcine Containing Allergy Unknown tired and Verified 08/03/20 14:32 Products depression tetracycline Allergy Unknown unknown(not Verified 08/03/20 14:32 100% sure if she's allergic to it) tramadol AdvReac Unknown dizzy, Verified 08/03/20 14:32 emesis Home Meds Home Medications Medication Instructions Recorded Confirmed aspirin 81 mg PO DAILY 07/14/19 03/20/20 amlodipine 5 mg PO DAILY 02/16/20 03/20/20 sevelamer carbonate 800 mg PO TIDM 02/16/20 03/20/20 acetaminophen 325 mg tablet 650 mg PO Q6H PRN tab 03/05/20 03/20/20 bumetanide 2 mg tablet 2 mg PO BID 03/06/20 03/06/20 calcitriol 0.25 mcg capsule 0.25 mcg PO .M-W-F cap 03/06/20 03/06/20 carvedilol 25 mg tablet 12.5 mg PO BID tab 03/06/20 03/20/20 fluticasone furoate 200 1 inh INHALATION DAILY 03/06/20 03/20/20 mcg-vilanterol 25 mcg/dose inhalation powder Previous Rx's Medication Instructions Recorded hydralazine 25 mg tablet 25 mg PO TID #90 tab 01/28/19 folic acid 1 mg PO QAM #30 tab 04/06/19 apixaban 2.5 mg tablet 2.5 mg PO BID #60 tab 05/23/19 betamethasone valerate 0.1 % 1 appln TOP BID #45 gm 08/09/19 topical ointment levothyroxine 175 mcg tablet 175 mcg PO DAILY #90 tab 09/09/19 lidocaine 1 patch TRANSDERMAL QAM #10 ea 02/18/20 oxycodone 5 mg PO Q6H PRN #1 tab 02/25/20 sodium bicarbonate 650 mg tablet 650 mg PO BID #180 tab 03/06/20 furosemide 40 mg tablet 40 mg PO DAILY #90 tab 04/03/20 Results & Data (ED) Home Medications Current Medication List: was personally reviewed by me Laboratory Data Attestation: I reviewed the patient's lab results. Result diagrams: 08/05/20 04:42 08/05/20 04:42 Lab Results 08/03/20 08/03/20 08/03/20 Range/Units 13:34 13:34 13:34 WBC 5.87 (4.8-10.8) K/uL RBC 3.60 L (4.2-5.4) M/uL Hgb 11.5 L (12.0-16.0) g/dL Hct 35.4 L (37-47) % MCV 98.3 (80-100) fL MCH 31.9 (25-34) pg MCHC 32.5 (32-36) g/dL RDW Std Deviation 55.5 H (36.4-46.3) fL RDW Coeff of Carlo 15.5 H (11.5-14.5) % Plt Count 212 (130-400) K/uL MPV 10.5 H (7.4-10.4) fL Immature Gran % (Auto) 0.5 % Neut % (Auto) 74.5 % Lymph % (Auto) 17.0 % Curry % (Auto) 6.1 % Eos % (Auto) 1.2 % Baso % (Auto) 0.7 % Neut # (Auto) 4.37 (1.4-6.5) K/uL Lymph # (Auto) 1.00 L (1.2-3.4) K/uL Curry # (Auto) 0.36 (0.11-0.59) K/uL Eos # (Auto) 0.07 (0-0.5) K/uL Baso # (Auto) 0.04 (0-0.2) K/uL Immature Gran # (Auto) 0.03 H (0.00-0.02) K/uL PT 11.8 (9.0-12.0) Seconds INR 1.1 (0.9-1.1) APTT 36.0 H (21.0-31.0) Seconds PTT Ratio 1.3 Sodium 134 L (136-145) mmol/L Potassium 4.3 (3.5-5.1) mmol/L Chloride 103 (98-107) mmol/L Carbon Dioxide 17 L (21-32) mmol/L Anion Gap 15.0 H (3-11) BUN 34 H (7-18) mg/dl Creatinine 3.26 H (0.6-1.2) mg/dl Est Cr Clr Drug Dosing 13.4 ml/min Est GFR ( Amer) 15.0 Est GFR (Non-Af Amer) 12.9 BUN/Creatinine Ratio 10.5 (10-20) Glucose 80 (70-99) mg/dl Calcium 9.2 (8.5-10.1) mg/dl Magnesium 3.3 H (1.8-2.4) mg/dl Total Bilirubin 1.1 H (0.2-1) mg/dl AST 14 L (15-37) U/L ALT 10 L (12-78) U/L Alkaline Phosphatase 108 (45-117) U/L Troponin I < 0.015 (0-0.045) ng/ml NT-Pro-B Natriuret Pep > 32774 H (0-1800) pg/ml Total Protein 8.1 (6.4-8.2) gm/dl Albumin 3.6 (3.4-5.0) gm/dl Globulin 4.5 H (2.5-4.0) gm/dl Albumin/Globulin Ratio 0.8 L (0.9-2) COVID-19 Eval Order SARS-CoV-2, RNA, NAAT (NEGATIVE) 08/03/20 08/03/20 Range/Units 14:25 14:25 WBC (4.8-10.8) K/uL RBC (4.2-5.4) M/uL Hgb (12.0-16.0) g/dL Hct (37-47) % MCV (80-100) fL MCH (25-34) pg MCHC (32-36) g/dL RDW Std Deviation (36.4-46.3) fL RDW Coeff of Carlo (11.5-14.5) % Plt Count (130-400) K/uL MPV (7.4-10.4) fL Immature Gran % (Auto) % Neut % (Auto) % Lymph % (Auto) % Curry % (Auto) % Eos % (Auto) % Baso % (Auto) % Neut # (Auto) (1.4-6.5) K/uL Lymph # (Auto) (1.2-3.4) K/uL Curry # (Auto) (0.11-0.59) K/uL Eos # (Auto) (0-0.5) K/uL Baso # (Auto) (0-0.2) K/uL Immature Gran # (Auto) (0.00-0.02) K/uL PT (9.0-12.0) Seconds INR (0.9-1.1) APTT (21.0-31.0) Seconds PTT Ratio Sodium (136-145) mmol/L Potassium (3.5-5.1) mmol/L Chloride (98-107) mmol/L Carbon Dioxide (21-32) mmol/L Anion Gap (3-11) BUN (7-18) mg/dl Creatinine (0.6-1.2) mg/dl Est Cr Clr Drug Dosing ml/min Est GFR ( Amer) Est GFR (Non-Af Amer) BUN/Creatinine Ratio (10-20) Glucose (70-99) mg/dl Calcium (8.5-10.1) mg/dl Magnesium (1.8-2.4) mg/dl Total Bilirubin (0.2-1) mg/dl AST (15-37) U/L ALT (12-78) U/L Alkaline Phosphatase (45-117) U/L Troponin I (0-0.045) ng/ml NT-Pro-B Natriuret Pep (0-1800) pg/ml Total Protein (6.4-8.2) gm/dl Albumin (3.4-5.0) gm/dl Globulin (2.5-4.0) gm/dl Albumin/Globulin Ratio (0.9-2) COVID-19 Eval Order Covid19 [facility]Now [facility] SARS-CoV-2, RNA, NAAT NEGATIVE (NEGATIVE) Administered Medications Amlodipine Besylate (Amlodipine Besylate 5 Mg Tab) 5 mg PO DAILY [facility] Stop: 09/02/20 19:14 Last Admin: 08/05/20 08:01 Dose: 5 mg Documented by: [id number] Admin: 08/04/20 08:09 Dose: 5 mg Documented by: [id number] Admin: 08/03/20 20:16 Dose: 5 mg Documented by: [id number] Apixaban (Apixaban 2.5 Mg Tab) 2.5 mg PO BID [facility] Stop: 09/02/20 20:59 Last Admin: 08/05/20 20:09 Dose: 2.5 mg Documented by: [id number] Admin: 08/05/20 08:00 Dose: 2.5 mg Documented by: [id number] Admin: 08/04/20 20:00 Dose: 2.5 mg Documented by: [id number] Admin: 08/04/20 08:08 Dose: 2.5 mg Documented by: [id number] Admin: 08/03/20 20:17 Dose: 2.5 mg Documented by: [id number] Aspirin (Aspirin 81 Mg Ectab) 81 mg PO DAILY [facility] Stop: 09/03/20 08:59 Last Admin: 08/05/20 08:00 Dose: 81 mg Documented by: [id number] Admin: 08/04/20 08:08 Dose: 81 mg Documented by: [id number] Betamethasone Valerate (Betamethasone Martha 0.1% Cr 15 Gm) 1 appln EXT BID [facility] Stop: 09/02/20 20:59 Last Admin: 08/05/20 20:11 Dose: 1 appln Documented by: [id number] Admin: 08/05/20 08:01 Dose: 1 appln Documented by: [id number] Admin: 08/04/20 20:01 Dose: 1 appln Documented by: [id number] Admin: 08/04/20 08:09 Dose: 1 appln Documented by: [id number] Admin: 08/03/20 20:15 Dose: 1 appln Documented by: [id number] Carvedilol (Carvedilol 25 Mg Tab) 25 mg PO BID [facility] Stop: 09/02/20 20:59 Last Admin: 08/05/20 20:09 Dose: 25 mg Documented by: [id number] Admin: 08/05/20 07:59 Dose: 25 mg Documented by: [id number] Admin: 08/04/20 20:00 Dose: 25 mg Documented by: [id number] Admin: 08/04/20 08:08 Dose: 25 mg Documented by: [id number] Admin: 08/03/20 21:02 Dose: 25 mg Documented by: [id number] Fluticasone/Vilanterol (Fluticasone/Vilanterol 200/25mcg 14 Puffs/Inhaler) 1 puffs INH DAILY [facility] Stop: 09/03/20 08:59 Last Admin: 08/05/20 08:03 Dose: 1 puffs Documented by: [id number] Admin: 08/04/20 08:07 Dose: 1 puffs Documented by: [id number] Folic Acid (Folic Acid 1 Mg Tab) 1 mg PO QAM [facility] Stop: 09/03/20 08:59 Last Admin: 08/05/20 08:00 Dose: 1 mg Documented by: [id number] Admin: 08/04/20 08:08 Dose: 1 mg Documented by: [id number] Hydralazine HCl (Hydralazine Hcl 25 Mg Tab) 25 mg PO TID [facility] Stop: 09/02/20 20:59 Last Admin: 08/05/20 20:08 Dose: 25 mg Documented by: [id number] Admin: 08/05/20 13:44 Dose: 25 mg Documented by: [id number] Admin: 08/05/20 07:59 Dose: 25 mg Documented by: [id number] Admin: 08/04/20 20:00 Dose: 25 mg Documented by: [id number] Admin: 08/04/20 15:14 Dose: 25 mg Documented by: [id number] Admin: 08/04/20 08:07 Dose: 25 mg Documented by: [id number] Admin: 08/03/20 20:16 Dose: 25 mg Documented by: [id number] Furosemide 40 mg/ Syringe 4 mls @ 4 mls/min IV BID17 [facility] Stop: 08/05/20 22:00 Last Admin: 08/05/20 16:44 Dose: 4 mls/min Documented by: [id number] Admin: 08/05/20 08:03 Dose: 4 mls/min Documented by: [id number] Admin: 08/04/20 16:36 Dose: 4 mls/min Documented by: [id number] Admin: 08/04/20 08:10 Dose: 4 mls/min Documented by: [id number] Isosorbide Mononitrate (Isosorbide Curry Extended Rel 30 Mg Tabcr) 30 mg PO QAM [facility] Stop: 09/04/20 08:59 Last Admin: 08/05/20 08:00 Dose: 30 mg Documented by: [id number] Lidocaine (Lidocaine 5% 1 Patch) 1 patch TD QAM [facility] Stop: 09/03/20 08:59 Last Admin: 08/05/20 08:00 Dose: Not Given Documented by: [id number] Admin: 08/04/20 11:48 Dose: Not Given Documented by: [id number] Miscellaneous (Remove Lidoderm Patch) 1 ea N/A DAILY@2100 [facility] Stop: 09/02/20 20:59 Last Admin: 08/05/20 20:09 Dose: Not Given Documented by: [id number] Admin: 08/04/20 20:01 Dose: Not Given Documented by: [id number] Admin: 08/03/20 20:18 Dose: Not Given Documented by: [id number] Morphine Sulfate (Morphine Sulfate 2 Mg/Ml Carp) 2 mg IV Q3H PRN PRN Reason: Pain Stop: 08/17/20 19:41 Last Admin: 08/04/20 01:33 Dose: 2 mg Documented by: [id number] Admin: 08/03/20 21:02 Dose: 2 mg Documented by: [id number] Sevelamer HCl (Sevelamer Hcl 800 Mg Tablet) 800 mg PO TIDM [facility] Stop: 09/03/20 07:59 Last Admin: 08/05/20 16:44 Dose: 800 mg Documented by: [id number] Admin: 08/05/20 12:06 Dose: 800 mg Documented by: [id number] Admin: 08/05/20 07:59 Dose: 800 mg Documented by: [id number] Admin: 08/04/20 16:36 Dose: 800 mg Documented by: [id number] Admin: 08/04/20 11:47 Dose: 800 mg Documented by: [id number] Admin: 08/04/20 08:06 Dose: 800 mg Documented by: [id number] Sodium Bicarbonate (Sodium Bicarbonate 650 Mg Tab) 650 mg PO BID [facility] Stop: 09/02/20 20:59 Last Admin: 08/05/20 20:09 Dose: 650 mg Documented by: [id number] Admin: 08/05/20 08:01 Dose: 650 mg Documented by: [id number] Admin: 08/04/20 20:00 Dose: 650 mg Documented by: [id number] Admin: 08/04/20 08:09 Dose: 650 mg Documented by: [id number] Admin: 08/03/20 20:15 Dose: 650 mg Documented by: [id number] Discontinued Medications Furosemide (Furosemide 40 Mg/4 Ml Vial) 40 mg IV NOW STA Stop: 08/03/20 15:27 Last Admin: 08/03/20 15:35 Dose: 40 mg Documented by: [id number] Furosemide (Furosemide 40 Mg/4 Ml Vial) 40 mg IV 2100 ONE Stop: 08/03/20 21:01 Last Admin: 08/03/20 21:04 Dose: 40 mg Documented by: [id number] Hydralazine HCl (Hydralazine Hcl 25 Mg Tab) 25 mg PO NOW STA Stop: 08/03/20 13:59 Last Admin: 08/03/20 14:22 Dose: 25 mg Documented by: [id number] Hydralazine HCl (Hydralazine Hcl 20 Mg/Ml Vial) 10 mg IV ONE PRN PRN Reason: MAP >100 SBP> 160 Last Admin: 08/03/20 20:12 Dose: 10 mg Documented by: [id number] Bumetanide 2 mg/ Syringe 8 mls @ 4 mls/min IV ONE ONE Stop: 08/03/20 17:31 Last Admin: 08/03/20 17:41 Dose: 4 mls/min Documented by: [id number] Bumetanide 10 mg/ Dextrose 50 mls @ 2.5 mls/hr IV .Q20H [facility] Stop: 09/02/20 19:29 Last Admin: 08/03/20 21:18 Dose: Not Given Documented by: [id number] Labetalol HCl (Labetalol Hcl Iv 5 Mg/Ml 20ml) 20 mg IV NOW STA Stop: 08/03/20 19:18 Last Admin: 08/03/20 19:05 Dose: 20 mg Documented by: [id number] Cosigned by: [id number] Labetalol HCl (Labetalol Hcl Iv 5 Mg/Ml 20ml) Confirm Administered Dose 20 mg IV .STK-MED ONE Stop: 08/03/20 19:19 Last Admin: 08/03/20 19:22 Dose: Not Given Documented by: [id number] Labetalol HCl (Labetalol Hcl Iv 5 Mg/Ml 20ml) 20 mg IV Q4H PRN PRN Reason: SBP greater than 150 Stop: 09/02/20 22:59 Last Admin: 08/04/20 05:18 Dose: 20 mg Documented by: [id number] Cosigned by: [id number] Levothyroxine Sodium (Levothyroxine Sodium 175 Mcg Tablet) 175 mcg PO DAILYBB [facility] Stop: 09/03/20 06:29 Last Admin: 08/05/20 05:47 Dose: 175 mcg Documented by: [id number] Admin: 08/04/20 05:32 Dose: 175 mcg Documented by: [id number] Metoprolol Tartrate (Metoprolol Tartrate 1 Mg/Ml Vial) 5 mg IV NOW STA Stop: 08/03/20 13:49 Last Admin: 08/03/20 13:55 Dose: 5 mg Documented by: [id number] Nitroglycerin (Nitroglycerin 2% Ointment 30gm Tube) 1 inch EXT NOW ONE Stop: 08/03/20 15:10 Last Admin: 08/03/20 15:36 Dose: 1 inch Documented by: [id number] Nitroglycerin (Nitroglycerin 2% Ointment 30gm Tube) 1 inch EXT NOW ONE Stop: 08/03/20 15:25 Last Admin: 08/03/20 15:43 Dose: Not Given Documented by: [id number] Discharge Plan Visit Data Chief Complaint: Shortness of Breath/Dyspnea ED Provider: Megan Guerrero Discharge Problem: CHF (congestive heart failure), Atrial fibrillation with RVR, CKD (chronic kidney disease) stage 5, GFR less than 15 ml/min Patient Disposition: Admitted As Inpatient Discharge Instructions Interventions: ED Discharge Assessment Last Done: 08/03/20 19:06 Discharge Problem: CHF (congestive heart failure) Qualifiers: Heart failure type: unspecified Heart failure chronicity: acute on chronic Qualified Code(s): I50.9 - Heart failure, unspecified
[2020-08-06] MEDS ORDERED: ALUMINUM/MAGNESIUM SUSP 30 ML UDC PO PRN (01:23)
[2020-08-06] MEDS ORDERED: FAMOTIDINE 10 MG TABLET PO ONE (01:25)
[2020-08-06] MEDS ORDERED: LEVOTHYROXINE SODIUM 200 MCG TABLET PO SCH (06:30)
[2020-08-06 06:56] LABS: Basophils # (auto) 0.01 K/uL (0-0.2); Basophils % (auto) 0.2 %; Eosinophils # (auto) 0.18 K/uL (0-0.5); Hematocrit (blood only) 28.7 % (37-47); Hemoglobin 9.5 g/dL (12.0-16.0); Immature Granulocytes # (auto) 0.02 K/uL (0.00-0.02); Immature Granulocytes % (auto) 0.4 %; Lymphocytes # (auto) 1.06 K/uL (1.2-3.4); Lymphocytes % (auto) 23.5 %; Mean Corpuscular Hemoglobin 32.3 pg (25-34); Mean Corpuscular Hgb Conc 33.1 g/dL (32-36); Mean Corpuscular Volume 97.6 fL (80-100); Mean Platelet Volume 10.7 fL (7.4-10.4); Monocytes # (auto) 0.36 K/uL (0.11-0.59); Neutrophils # (auto) 2.88 K/uL (1.4-6.5); Neutrophils % (auto) 63.9 %; Platelet Count 175 K/uL (130-400); RDW Coefficient of Variation 15.3 % (11.5-14.5); RDW Standard Deviation 54.2 fL (36.4-46.3); Red Blood Count 2.94 M/uL (4.2-5.4); White Blood Count 4.51 K/uL (4.8-10.8)
[2020-08-06 07:13] LABS: Calcium 8.3 mg/dl (8.5-10.1); Creatinine Clr Calc Pharmacy 10.3 ml/min; Est GFR (African American) 11.4; Est GFR (Non-African American) 9.9; Magnesium 2.9 mg/dl (1.8-2.4); Potassium 3.9 mmol/L (3.5-5.1)
[2020-08-06 07:20] LABS: Phosphorus 4.5 mg/dl (2.5-4.9)
[2020-08-06] MEDS: carvediloL 25 MG TAB PO SCH (08:17)
[2020-08-06] MEDS: APIXABAN 2.5 MG TAB PO SCH (08:17)
[2020-08-06] MEDS: ASPIRIN 81 MG ECTAB PO SCH (08:17)
[2020-08-06] MEDS: hydrALAZINE HCL 25 MG TAB PO SCH (08:17)
[2020-08-06] MEDS: FOLIC ACID 1 MG TAB PO SCH (08:17)
[2020-08-06] MEDS: SODIUM BICARBONATE 650 MG TAB PO SCH (08:17)
[2020-08-06] MEDS: amLODIPine BESYLATE 5 MG TAB PO SCH (08:17)
[2020-08-06] MEDS: ISOSORBIDE MONO EXTENDED REL 30 MG TABCR PO SCH (08:17)
[2020-08-06] MEDS: SEVELAMER HCL 800 MG TABLET PO SCH (08:18)
[2020-08-06] MEDS: BETAMETHASONE VAL 0.1% CR 15 GM EXT SCH (08:18)
[2020-08-06] MEDS: LIDOCAINE 5% 1 PATCH TD SCH (08:19)
[2020-08-06] MEDS ORDERED: BUMETANIDE 1 MG TAB PO SCH (09:00)
[2020-08-06] MEDS ORDERED: CALCITRIOL 0.25 MCG CAPSULE PO SCH (09:00)
[2020-08-06] MEDS: FLUTICASONE/VILANTEROL 200/25MCG 14 PUFFS/INHALER INH SCH (09:56)
--- NOTE | 2020-08-06 10:22 | Palliative Care Consultation ---
Date of Consultation August 06, 2020 Assessment & Plan (1) Palliative care encounter: This patient is a 79 year old female who presented to the [facility] with shortness of breath on 08/05 and was found to be in acute respiratory failure. Additional PMH include: HTN, non compliant CHF, Afib, ESRD not on dialysis, hyperparathyroidism, psoriasis, SIADH, anemia of chronic disease, CVD s/p carotid stenosis (50%) 2018, and diabetes mellitus. She presented with HTN and afib with RVR. She initially was placed on BiPAP and received diuretics. Ultimately, she had been on hemodialysis, but has recently stopped and has refused further treatments. Palliative Care was consulted to discuss goals of care and code status. I met with Therese in room 232. She was sitting upright in her bed, smiling and cracking jokes as soon as I entered the room. We talked about her daily ADL activities. She does live alone, but has 4 adult children who live on the [address] and visit her daily. She does bath herself when someone is visiting. She also receives meals on wheels but does heat her food on her own. We talked about her going home with home health and she agreed thats what she would want to do. She also said she did not feel ready for hospice but was agreeable to complete a POLST form which we did and a copy was placed on the chart. DNR/DNI, which is now reflected in the computer, limited intervention, trial abx and trial tube feedings. She was agreeable to follow with outpatient palliative care as she knows things will likely worsen with her heart failure and her kidney failure (current creatinine 4.08). Plan is for her to be discharged home with home he alth today. I did reach out to Radha but she did not answer. Thanks for allowing us to participate in her care. (2) CHF (congestive heart failure): Heart failure chronicity: acute on chronic Heart failure type: unspecified Qualified Code(s): I50.9 - Heart failure, unspecified (3) ESRD (end stage renal disease): (4) Metabolic acidosis: History of Present Illness Reason for Consultation: Goals of care Requesting Physician: Dr. Jaimes Attending Physician: Pedro Hughes MD History of Present Illness This patient is a 79 year old female who presented to the [facility] with shortness of breath on 08/05 and was found to be in acute respiratory failure. Additional PMH include: HTN, non compliant CHF, Afib, ESRD not on dialysis, hyperparathyroidism, psoriasis, SIADH, anemia of chronic disease, CVD s/p carotid stenosis (50%) 2018, and diabetes mellitus. She presented with HTN and afib with RVR. She initially was placed on BiPAP and received diuretics. Ultimately, she had been on hemodialysis, but has recently stopped and has refused further treatments. Palliative Care was consulted to discuss goals of care and code status. Please see A/P for further details. Thank you for involving palliative care with this patient. Allergies Allergy/AdvReac Type Severity Reaction Status Date / Time doxycycline Allergy Unknown Hives Verified 08/03/20 14:32 labetalol Allergy Unknown tired and Verified 08/03/20 14:32 depressed lorazepam Allergy Unknown "SQUIRRELLY Verified 08/03/20 14:32 " Pork/Porcine Containing Allergy Unknown tired and Verified 08/03/20 14:32 Products depression tetracycline Allergy Unknown unknown(not Verified 08/03/20 14:32 100% sure if she's allergic to it) tramadol AdvReac Unknown dizzy, Verified 08/03/20 14:32 emesis Home Medications Medication Instructions Recorded Confirmed Type hydralazine 25 mg tablet 25 mg PO TID #90 tab 01/28/19 03/20/20 Rx folic acid 1 mg PO QAM #30 tab 04/06/19 03/20/20 Rx apixaban 2.5 mg tablet 2.5 mg PO BID #60 tab 05/23/19 03/20/20 Rx aspirin 81 mg PO DAILY 07/14/19 03/20/20 History betamethasone valerate 0.1 % 1 appln TOP BID #45 gm 08/09/19 03/20/20 Rx topical ointment amlodipine 5 mg PO DAILY 02/16/20 03/20/20 History sevelamer carbonate 800 mg PO TIDM 02/16/20 03/20/20 History lidocaine 1 patch TRANSDERMAL QAM #10 ea 02/18/20 03/20/20 Rx oxycodone 5 mg PO Q6H PRN #1 tab 02/25/20 03/20/20 Rx acetaminophen 325 mg tablet 650 mg PO Q6H PRN tab 03/05/20 03/20/20 History bumetanide 2 mg tablet 2 mg PO BID 03/06/20 03/06/20 History calcitriol 0.25 mcg capsule 0.25 mcg PO .M-W-F cap 03/06/20 03/06/20 History fluticasone furoate 200 1 inh INHALATION DAILY 03/06/20 03/20/20 History mcg-vilanterol 25 mcg/dose inhalation powder sodium bicarbonate 650 mg tablet 650 mg PO BID #180 tab 03/06/20 03/20/20 Rx carvedilol 25 mg PO BID #0 tab 08/06/20 03/20/20 Rx isosorbide mononitrate 30 mg PO QAM #30 tab 08/06/20 Rx levothyroxine [Synthroid] 200 mcg PO DAILYBB #30 tab 08/06/20 Rx Patient History Medical History (Updated 08/06/20 @ 10:22 by GALO Hays) Accidental fall Anemia associated with chronic renal failure Asthma Atrial fibrillation Dx 02/2019. On Eliquis. Per Dr. Grimaldo 03/03/19 office note, suspect afib was present for a long time given significant biatrial dilatation. Cardiomyopathy Systolic CHF, EF 25-30% on echo 03/28/19 with global HK. Per cardiology consult 02/14/19, cannot exlude ischemic etiology, but may also be 2/2 prolonged tachycardia. Euvolemic on exam at PAT 09/07/19. Carotid artery stenosis without cerebral infarction < 50% bilateral carotid stenosis per 2018 imaging (*No imaging in our records but this was noted by PCP at 06/2019 office visit) Chronic kidney disease, stage 4 (severe) Cognitive impairment Daughter, Linda Dupont, primary ehs engineer Depression Diabetes diet controlled ESRD (end stage renal disease) on dialysis pt to do dialysis MWF [facility] but has been refusing to go and according to the daughter she has not been there for about the last 2 weeks. 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) Stage 5 chronic kidney disease not on chronic dialysis Systolic CHF EF 25-30% per 03/2019 echo Surgical History H/O colonoscopy History of dilatation and curettage History of vascular access device RIGHT UPPER CHEST PERMACATH FOR DIALYSIS 04/01/19 S/P arteriovenous (AV) fistula creation Jul 2019 Family History Father Heart disease Mother Diabetes Heart disease Hypertension Daughter Breast cancer Brother Hypertension Grandmother (Maternal) Family hx of colon cancer Denies family history of Ovarian cancer Colorectal cancer Colonic polyp Social History Smoking Status: Never smoker Second Hand Exposure: No; Hx Alcohol Use: No Hx Substance Use: No Preferred Language: Korean Communication Ability: Effective 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: No Beliefs That Will Affect Care: None marital status: Single Current Living Situation: Alone current occupational status: retired current occupation: [employer] Feels Safe at Home: Yes Assistive Devices: Glasses and Oxygen - Continuous Review of Systems Review of Systems: [place] Symptom Assessment Scale Pain: 0/3 Tiredness: 0/3 Nausea: 0/3 Lack of Appetite: 0/3 SOB: 0/3 Anxiety: 0/3 Palliative Performance Scale: 40% Physical Exam Constitutional: + frail appearing, cooperative and comfortable Respiratory: normal respiratory effort, lungs clear to auscultation Auscultation: + diminished lung sounds Cardiovascular: RRR, no murmur, no edema Heart Sounds: normal S1 and normal S2 Extremities: + edema (bilateral lower extremities + 1) Gastrointestinal (Abdomen): normal bowel sounds, soft, nontender, no hepatosplenomegaly Skin: no rashes, warm and dry + pallor Psychiatric: A+Ox3, euthymic affect Lymphatic: no cervical or axillary lymphadenopathy Results & Data ([facility]) Vital Signs (Past 12 Hours) Vital Signs Temp Pulse Pulse Resp BP Pulse Ox 08/06/20 08:15 36.7 C 63 20 152/62 H 93 08/06/20 05:01 36.8 C 66 17 172/68 H 96 08/06/20 00:00 81 08/05/20 23:36 36.8 C 68 20 128/69 91 PG Care Time/CCT Total # of Minutes Spent Total Time Spent with Patient: Total time spent is greater than 50% in coordination of care (as documented) at patient's floor/unit and/or counseling patient: 70 Coding Level of Care Code 82548 Inpt Consult Level 3 Diagnoses Palliative care encounter Z51.5 CHF (congestive heart failure) I50.9 Heart failure chronicity: acute on chronic Heart failure type: unspecified ESRD (end stage renal disease) N18.6 Metabolic acidosis E87.2 Time Spent (min) 70 Time Spent Midlevel Total time spent 70 minutes with > 50% of that time spent assessing the patient, discussing goals of care, & collaborating with IDT
--- NOTE | 2020-08-06 10:57 | Nephrology Progress Note ---
Date of Service August 06, 2020 Assessment & Plan (1) ESRD (end stage renal disease): * Electrolyte balance is acceptable. Cr has risen from 3.5 to 4.0. No acute indication for HD * Patient is clinically euvolemic. Agree w/ transitioning to Bumex 2 mg po BID. Will d/c Castillo catheter * Discussed advanced renal impairment and indications/benefits of HD in detail w/ patient again this am. She again notes that she would not accept HD if her condition worsens * Palliative care has been consulted to establish goals of care and obtain POLST. Await their input. Patient does not desire heroic measures and only wants conservative medical management in the setting of her kidney failure * Monitor PRP * If discharge is anticipated, please have patient follow up w/ Dr. Parikh within the next 7 - 14 days (2) Hypertensive urgency: * BP improved. Agree w/ resuming home medical regimen. Suspect exacerbation of HTN and CHF in part related to poor adherence to medical regimen and dietary Na restriction (3) CHF exacerbation: * Improved. Wean O2 as tolerated * Agree w/ transition to oral Bumex (4) Atrial fibrillation: * HR controlled * On Apixaban Admission and Anticipated Discharge Date Admission Date: August 03, 2020 Subjective Ms. Figueroa was seen & examined in her hospital room this morning. She denies fever, dyspnea, angina or uremic symptoms. She hopes to return home soon. Review of Systems Constitutional: + weakness; no fever Eyes: no problem reported Ear, Nose, Mouth, Throat: no problem reported Respiratory: no dyspnea Cardiovascular: no chest pain, no palpitations and no edema Gastrointestinal: no abdominal pain, no nausea, no vomiting and no diarrhea/loose stools Genitourinary: no dysuria and no hematuria Musculoskeletal: no back pain Integumentary: no rash Neurologic: no falls and no confusion Physical Exam Constitutional: + frail appearing; not in distress Eyes: PERRL, conjunctivae normal, anicteric sclerae Neck: trachea midline, no thyromegaly Respiratory: normal respiratory effort, lungs clear to auscultation Cardiovascular: Rate/Rhythm: + irregularly irregular Extremities: no edema Gastrointestinal (Abdomen): Percussion/Palpation: abdomen soft; abdomen nontender Results & Data ([facility]) Vital Signs (Past 12 Hours) Vital Signs Temp Pulse Pulse Resp BP Pulse Ox 08/06/20 08:15 36.7 C 63 20 152/62 H 93 08/06/20 05:01 36.8 C 66 17 172/68 H 96 08/06/20 00:00 81 08/05/20 23:36 36.8 C 68 20 128/69 91 Laboratory Tests 08/06/20 08/06/20 05:55 05:55 WBC 4.51 L Hgb 9.5 L Hct 28.7 L Plt Count 175 Sodium 134 L Potassium 3.9 Chloride 103 Carbon Dioxide 21 BUN 49 H Creatinine 4.08 H D Glucose 73 Calcium 8.3 L Phosphorus 4.5 Magnesium 2.9 H PG Care Time/CCT Total # of Minutes Spent Total Time Spent with Patient: Total time spent is greater than 50% in coordination of care (as documented) at patient's floor/unit and/or counseling patient: Coding Level of Care Code 38784 Subseq Hosp Care Lvl 3 Diagnoses ESRD (end stage renal disease) N18.6 Hypertensive urgency I16.0 CHF exacerbation I50.9 Atrial fibrillation I48.91 Atrial fibrillation type: unspecified (1) Atrial fibrillation Atrial fibrillation type: unspecified Qualified Code(s): I48.91 - Unspecified atrial fibrillation
--- NOTE | 2020-08-06 17:45 | Discharge Summary ---
Date of Service August 06, 2020 Admission HPI Per Admitting Provider 79-year-old female with a past medical history including episodic opiate abuse, noncompliance with medical regimen, ESRD not on dialysis, hypertension, mitral regurgitation , HFrEF (25-30%) , vitamin D deficiency, secondary hypoparathyroidism, subclavian artery stenosis, anxiety, asthma, carotid artery stenosis, cognitive impairment, depression, diabetes mellitus, secondary hyperparathyroidism, atrial fibrillation, psoriasis, and SIADH. She has CKD stage 5 and used to get her volume and pressures managed through dialysis. Secondary to non-compliance with medication and dialysis regime, her PermCath was removed and renal replacement therapy is no longer a treatment option. Patient comes to the emergency room for increased shortness of breath, hypertensive and tachycardia. The patient was placed on BiPAP, diuresed, and given a dose of metoprolol IV, which has controlled her HR, she is moving good air currently on the BiPAP and will wean off. Patient is on on therapeutic anticoagulation for afib with apixaban. Question accuracy of blood pressure with the NIBP on the wrist however she still is hypertensive. Will admit the patient for medication optimization, CHF exacerbation, diurese, wound care consult for her feet, and care coordination. Principal Diagnosis Acute exacerbation of systolic CHF Discharge Exam Constitutional WD/WN, vitals as above Eyes EOM intact bilaterally; no conjunctival abnormality ENMT external ear and nose normal, oropharynx normal Neck trachea midline, no thyromegaly normal visual inspection Respiratory normal respiratory effort, lungs clear to auscultation no respiratory distress Cardiovascular RRR, no murmur, no edema Gastrointestinal (Abdomen) Inspection/Auscultation: abdomen normal to inspection; abdomen not distended Musculoskeletal no cyanosis or clubbing, extremities motor strength 5/5 Skin no rashes, warm and dry Neurologic moves all extremities and awake Psychiatric Orientation: alert, oriented to person and cooperative Discharge Data Allergies Allergy/AdvReac Type Severity Reaction Status Date / Time doxycycline Allergy Unknown Hives Verified 08/03/20 14:32 labetalol Allergy Unknown tired and Verified 08/03/20 14:32 depressed lorazepam Allergy Unknown "SQUIRRELLY Verified 08/03/20 14:32 " Pork/Porcine Containing Allergy Unknown tired and Verified 08/03/20 14:32 Products depression tetracycline Allergy Unknown unknown(not Verified 08/03/20 14:32 100% sure if she's allergic to it) tramadol AdvReac Unknown dizzy, Verified 08/03/20 14:32 emesis Consultations 08/03/20 15:24 ED Decision to Admit Stat 08/03/20 18:20 Consult Threading Machine Operator Routine 08/03/20 19:01 Consult Cardiology Routine Consult Case Management - Discharge Planning Routine Consult Case Management - Discharge Planning Routine 08/04/20 10:06 Consult Nephrology Routine 08/04/20 11:57 Consult Palliative Care Routine Hospital Course (1) HFrEF (heart failure with reduced ejection fraction): Patient with history of noncompliance and systolic heart function which has left the patient with an EF of 25-30% - Patient hypertensive and volume overloaded on admission and now much improved with addition of initially IV Bumex and then IV Lasix twice daily. -Blood pressure now better controlled but remains somewhat elevated - increase in bilateral pleural effusions from last chest xray in february - BNP elevated, no real good baseline to compare -Initially was on BiPAP to offload workload and volume, decrease afterload and circulating volume as tolerated-now weaned off of this and is much improved from respiratory standpoint-weaned to room air Repeat echocardiogram here with improved LVEF at 40-45%, moderate MR -Continue diuresis with IV Lasix today and then convert to her home Bumex 2 mg p.o. twice daily tomorrow -Continue improved blood pressure control-added isosorbide -Strict I's and O's, daily weights Appreciate cardiology and nephrology consultations If continues to do well, can likely be discharged to home on Thursday. Patient felt well Thursday. Cr had worsened, but she told me to "get [her] out of this care home" and declined further hospitalization. She has repeatedly declined any HD. 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 (2) Acute respiratory failure with hypoxia: As noted above secondary to CHF Now resolved after diuresis (3) Hypertension: Chronic-with blood pressures that remain elevated but improved from p revious She did require 1 dose of IV labetalol this admission -Continue to diurese for volume control -Continue hydralazine and added on isosorbide 30 mg daily -Continue home amlodipine, carvedilol (4) Atrial fibrillation: Chronic, currently rate controlled but was rapid on admission Continue apixaban for chronic anticoagulation no acute needs electrolytes within range, difficult to manage with renal failure and volume status Continue carvedilol for rate control (5) Stage 5 chronic kidney disease not on chronic dialysis: Non dialysis, still makes urine and responding to diuretic therapy. Creatinine fairly stable to mildly elevated from previous today at 3.65 other electrolytes acceptable She was previously on hemodialysis but then was noncompliant and stopped going to dialysis 1 year ago - Continue sevelamer and sodium bicarb - renal indices actually look good compared to previous admissions Nephrology consulted-appreciate Palliative care consultation requested to discuss goals of care and follow-up POLST form prior to discharge (6) Secondary hyperparathyroidism of renal origin: No acute needs continue calcitriol (7) Mitral regurgitation: Chronic, moderate on echocardiogram here evaluate valve and heart function, do not feel that admission is directly related to acute valve failure Optimize volume off as above (8) Diabetes: Hemoglobin A1c only 5.0% in 02/2020 Blood sugar was actually low here at times Glucose checks, goal <200 - insulin if needed (9) Hyponatremia: Chronic, full workup completed with SIADH and 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: - Bilateral feet with open areas, patient states that home health is still coming to assist with cleansing and dressing - wound care nurse consult placed-dressings are in place-continue home health after discharge (11) Anxiety: Was anxious while on BiPAP, now resolved and is off BiPAP (12) Hypothyroidism: TSH is significantly elevated at 10.7, suspect noncompliance with medications although she denies this and reports that she takes her levothyroxine every day on an empty stomach Increase levothyroxine to 200 mcg once daily Follow TSH in 3-4 weeks as an outpatient (13) Cognitive impairment: Noted to be mild in outpatient notes Supportive care (14) Anemia associated with chronic renal failure: Hemoglobin low at 9.3, macrocytic iron studies, B12, folate all normal Treating hypothyroidism as above (15) Metabolic acidosis: Chronic, secondary to chronic renal failure-improved today at 23 Continue sodium bicarbonate 650 mg p.o. twice daily Follow BMP (16) DVT prophylaxis: Eliquis Disposition-downgrade out of ICU to PCU, most likely can be discharged to home on Thursday if continues to do well PT/OT consultations placed Total Time Total Time Spent Total Time Spent (In Minutes): 35 Discharge Plan Discharge Items Patient Disposition: Home - Home Health Services Reason For Visit: HEART FAILURE Discharge Diagnosis: Heart failure Activity: Resume your previous activity Non-emergency contact: Primary Care Provider and [facility] Call non-emergency contact if: your symptoms worsen Follow-up/Referrals: Brady Hassan MD [Physician] - 08/13/20 11:30 am (Please see one of the kidney doctors in clinic in 1-2 weeks to be sure you're doing well.) Cayetano Sheppard MD [Physician] - (Please see one of the heart doctors in clinic in 1-2 weeks to be sure you're doing well. DR. SHEPPARD'S OFFICE WILL CONTACT YOU WITH AN APPOINTMENT) Mike Carrington MD [Primary Care Provider] - 08/09/20 10:00 am (APPOINTMENT WITH DENIA LAZCANO) Diet: Low Sodium (2gm) Addtl Attending Provider Instructions: Ms. Figueroa, You were admitted to the hospital with extra fluid which is from your heart and kidneys. Your kidney function is not so great, and this makes it harder for them to get fluid off. Your Bumex helps prevent this from happening. Please continue your home medication regimen and please follow up with your kidney doctor (Dr. Hassan or Dr. Parikh). Pending Studies at Discharge: No Stand-Alone Forms: My [facility] [employer], Smoking Cessation Medications and DC Order Prescriptions: New isosorbide mononitrate 30 mg Tablet Extended Release 24 Hr 30 mg PO QAM Qty: 30 RF: 0 levothyroxine [Synthroid] 200 mcg Tablet 200 mcg PO DAILYBB Qty: 30 RF: 0 Continued bumetanide 2 mg tablet 2 mg PO BID RF: 0 Breo Ellipta 200-25 mcg/dose blister with device 1 inh inhalation DAILY RF: 0 calcitriol 0.25 mcg capsule 0.25 mcg PO .-- RF: 0 sodium bicarbonate 650 mg tablet 650 mg PO BID Qty: 180 RF: 3 hydralazine 25 mg tablet 25 mg PO TID Qty: 90 RF: 11 Eliquis 2.5 mg tablet 2.5 mg PO BID Qty: 60 RF: 5 acetaminophen 325 mg tablet 650 mg PO Q6H PRN (Reason: fever or pain) RF: 0 betamethasone valerate 0.1 % ointment 1 appln TOP BID Qty: 45 RF: 1 aspirin 81 mg tablet,delayed release (DR/EC) 81 mg PO DAILY RF: 0 sevelamer carbonate 800 mg tablet 800 mg PO TIDM RF: 0 amlodipine 5 mg tablet 5 mg PO DAILY RF: 0 lidocaine 5 % Adhesive Patch,Medicated 1 patch transdermal QAM Qty: 10 RF: 0 oxycodone 5 mg Tablet 5 mg PO Q6H PRN (Reason: pain) Qty: 1 RF: 0 folic acid 1 mg Tablet 1 mg PO QAM Qty: 30 RF: 0 Changed carvedilol 25 mg tablet 25 mg PO BID Qty: 0 RF: 0 Discontinued levothyroxine 175 mcg tablet 175 mcg PO DAILY Qty: 90 RF: 3 furosemide 40 mg tablet 40 mg PO DAILY Qty: 90 RF: 3 Discharge Orders: Discharge Order (Routine); Ordered 08/06/20 Ordered By: Pedro Xavier/Other Patient Handouts: AFL/Afib, Levothyroxine tablets, Isosorbide Mononitrate tablets Admission Data Admit Date/Time: 08/03/20 17:15 Attending Provider: Pedro Hughes Admit Provider: Rober Roberson Primary Care Provider: Mike Carrington Other Providers: Donavan Nunez ; Cayetano Sheppard ; Brady Hassan ; Varsha Rosario ; Pedro Hughes ; [facility] Other Interventions: Discharge Summary Assessment (RN) Last Done: 08/06/20 10:55 Coding Level of Care Code D/C Day Management >30 mins Diagnoses HFrEF (heart failure with reduced ejection fraction) I50.20 Heart failure chronicity: unspecified Acute respiratory failure with hypoxia J96.01 Hypertension I15.1; N28.89 Hypertension type: secondary to other renal disorders Atrial fibrillation I48.91 Atrial fibrillation type: unspecified Stage 5 chronic kidney disease not on chronic dialysis N18.5 Secondary hyperparathyroidism of renal origin N25.81 Mitral regurgitation I34.0 Cardiac valve disease etiology: etiology unspecified Diabetes E11.22; N18.5 Diabetes mellitus type: type 2 Diabetes mellitus 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
== END 2020-08-06 12:14 | disposition home health service (06) | DRG 291 ==
LOC: ED 13:23 → 1E 17:15 → SUATTDRO 17:15 → 1E 19:06 → 2S 08-05 12:40

== ENCOUNTER 2020-11-09 08:24 | Inpatient (IN) ==
[2020-11-09] MEDS ORDERED: ALBUT/IPRATROP 3MG/0.5MG NEB 3 ML VIAL INH STA (08:30)
[2020-11-09] MEDS ORDERED: cefTRIAXone SODIUM 1,000 MG/50 ML BAG IV STA (08:32)
[2020-11-09] MEDS ORDERED: AZITHROMYCIN 500 MG in DEXTROSE 5% 250 ML IV STA (08:32)
--- NOTE | 2020-11-09 08:36 | Emergency Department Note ---
History of Present Illness General Chief complaint: Shortness of Breath/Dyspnea Time Seen by Provider: 11/09/20 08:26 Source: patient Mode of arrival: EMS Limitations: no limitations History of Present Illness Provider complaint: Cough and shortness of breath This is a 79-year-old female who presents by EMS with a chief complaint of a cough and shortness of breath for the past 4 days. Productive of green sputum. She also states it is hard to breathe. Worse with exertion. Denies other complaints. Lives alone. Home Medications Medication Instructions Recorded Confirmed Type hydralazine 25 mg tablet 25 mg PO TID #90 tab 01/28/19 08/07/20 Rx folic acid 1 mg PO QAM #30 tab 04/06/19 08/07/20 Rx aspirin 81 mg PO DAILY 07/14/19 08/07/20 History betamethasone valerate 0.1 % 1 appln TOP BID #45 gm 08/09/19 08/07/20 Rx topical ointment amlodipine 5 mg PO DAILY 02/16/20 08/07/20 History sevelamer carbonate 800 mg PO TIDM 02/16/20 08/07/20 History lidocaine 1 patch TRANSDERMAL QAM #10 ea 02/18/20 08/07/20 Rx oxycodone 5 mg PO Q6H PRN #1 tab 02/25/20 08/07/20 Rx acetaminophen 325 mg tablet 650 mg PO Q6H PRN tab 03/05/20 11/09/20 History calcitriol 0.25 mcg capsule 0.25 mcg PO .M-W-F cap 03/06/20 08/07/20 History fluticasone furoate 200 1 inh INHALATION DAILY 03/06/20 08/07/20 History mcg-vilanterol 25 mcg/dose inhalation powder isosorbide mononitrate 30 mg PO QAM #30 tab 08/06/20 08/07/20 Rx levothyroxine [Synthroid] 200 mcg PO DAILYBB #30 tab 08/06/20 08/07/20 Rx apixaban 2.5 mg tablet 2.5 mg PO BID #60 tab 08/07/20 11/09/20 Rx bumetanide 2 mg tablet 2 mg PO BID #180 tab 08/07/20 11/09/20 Rx carvedilol 25 mg tablet 25 mg PO BID #180 tab 08/07/20 11/09/20 Rx sodium bicarbonate 650 mg tablet 650 mg PO BID #180 tab 08/07/20 11/09/20 Rx Allergies Allergy/AdvReac Type Severity Reaction Status Date / Time doxycycline Allergy Unknown Hives Verified 11/09/20 09:48 labetalol Allergy Unknown tired and Verified 11/09/20 09:48 depressed lorazepam Allergy Unknown "SQUIRRELLY Verified 11/09/20 09:48 " Pork/Porcine Containing Allergy Unknown tired and Verified 11/09/20 09:48 Products depression tetracycline Allergy Unknown unknown(not Verified 11/09/20 09:48 100% sure if she's allergic to it) tramadol AdvReac Unknown dizzy, Verified 11/09/20 09:48 emesis Past Med/Surg History Medical History Accidental fall Anemia associated with chronic renal failure Asthma Atrial fibrillation Dx 02/2019. On Eliquis. Per Dr. Grimaldo 03/03/19 office note, suspect afib was present for a long time given significant biatrial dilatation. Cardiomyopathy Systolic CHF, EF 25-30% on echo 03/28/19 with global HK. Per cardiology consult 02/14/19, cannot exlude ischemic etiology, but may also be 2/2 prolonged tachycardia. Euvolemic on exam at [facility] 09/07/19. Carotid artery stenosis without cerebral infarction < 50% bilateral carotid stenosis per 2018 imaging (*No imaging in our records but this was noted by PCP at 06/2019 office visit) Chronic kidney disease, stage 4 (severe) Cognitive impairment Daughter, Linda Dupont, primary overlock hemmer Depression Diabetes diet controlled ESRD (end stage renal disease) on dialysis pt to do dialysis MWF in [facility] but has been refusing to go and according to the daughter she has not been there for about the last 2 weeks. 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) Stage 5 chronic kidney disease not on chronic dialysis Systolic CHF EF 25-30% per 03/2019 echo Surgical History H/O colonoscopy History of dilatation and curettage History of vascular access device RIGHT UPPER CHEST PERMACATH FOR DIALYSIS 04/01/19 S/P arteriovenous (AV) fistula creation Jul 2019 Family History Father Heart disease Mother Diabetes Heart disease Hypertension Daughter Breast cancer Brother Hypertension Grandmother (Maternal) Family hx of colon cancer Denies family history of Ovarian cancer Colorectal cancer Colonic polyp Social History Smoking Status: Never smoker Second Hand Exposure: No; Hx Alcohol Use: No Hx Substance Use: No Preferred Language: Armenian Communication Ability: Effective Belt Buckle Maker Required: No Beliefs That Will Affect Care: None marital status: Single Current Living Situation: Alone current occupational status: retired current occupation: [employer] Feels Safe at Home: Yes Assistive Devices: Glasses and Oxygen - Continuous Review of Systems A total of 10 systems reviewed and were otherwise negative Physical Exam Vital Signs Vital Signs - 24 hr 11/09/20 08:30 11/09/20 08:45 Temperature 37.4 C Temperature Source Oral Pulse Rate 113 H Pulse Rate [Right Apical] 108 H Respiratory Rate 16 20 Respiratory Effort / Characteristics Non-Labored Spontaneous Blood Pressure 129/83 Blood Pressure Mean 98 Pulse Oximetry 97 96 Oxygen Delivery Method Nasal Cannula Nasal Cannula Oxygen Flow Rate 4 4 Sepsis Recent Fever Within 48 Hours No Sepsis New/Unexplained Change in Mental Status N/A Sepsis Action Taken by Nursing No Action Required CONSTITUTIONAL/VITAL SIGNS: Reviewed / noted above. GENERAL: Non-toxic in appearance. INTEGUMENTARY: Warm, dry, and [place]. HEAD: Normocephalic. EYES: without scleral icterus or trauma. ENT/OROPHARYNX: clear and moist. LYMPHADENOPATHY/NECK: Is supple without lymphadenopathy or meningismus. RESPIRATORY: Lungs clear in the right, persistent uniform localized upper wheeze on the left. CARDIOVASCULAR: Regular rate and rhythm. GI/ABDOMEN: Soft and nontender. No organomegaly or pulsatile mass. No rebound or guarding. Normal bowel sounds. EXTREMITIES: Warm and well perfused. BACK: No CVA tenderness. NEUROLOGICAL: Intact without focal deficits. PSYCHIATRIC: normal affect. MUSCULOSKELETAL: Normally developed with good muscle tone. TRIAGE NURSING DOCUMENTATION REVIEWED. Course Administered Medications Azithromycin 500 mg/ Dextrose 255 mls @ 127.5 mls/hr IV NOW STA Stop: 11/09/20 10:31 Last Admin: 11/09/20 09:56 Dose: 127.5 mls/hr Documented by: [id number] Discontinued Medications Albuterol (Albut/Ipratrop 3mg/0.5mg Neb 3 Ml Vial) 3 ml INH NOW STA Stop: 11/09/20 08:31 Last Admin: 11/09/20 08:44 Dose: 3 ml Documented by: [id number] Ceftriaxone Sodium (Rocephin) 1,000 mg in 50 mls @ 100 mls/hr IV NOW STA Stop: 11/09/20 09:01 Last Infusion: 11/09/20 09:50 Dose: 0 mls/hr Documented by: [id number] Admin: 11/09/20 09:20 Dose: 100 mls/hr Documented by: [id number] Medical Decision Making Differential Diagnosis The differential was considered includes acute myocardial infarction, acute coronary syndrome, myocarditis, pericarditis, pericardial effusions /tamponad, esophageal perforation, pulmonary embolism, pneumonia, pneumothorax, cardiomyopathy, congestive heart, anemia , COPD/asthma exacerbation. Medical Records Attestation: I reviewed the patient's medical records. Home Medications Current Medication List: was personally reviewed by me Laboratory Data Attestation: I reviewed the patient's lab results. Result diagrams: 11/09/20 08:34 11/09/20 08:34 Lab Results 11/09/20 11/09/20 11/09/20 Range/Units 08:34 08:34 08:34 WBC 3.43 L (4.8-10.8) K/uL RBC 3.18 L (4.2-5.4) M/uL Hgb 10.0 L (12.0-16.0) g/dL Hct 29.7 L (37-47) % MCV 93.4 (80-100) fL MCH 31.4 (25-34) pg MCHC 33.7 (32-36) g/dL RDW Std Deviation 61.4 H (36.4-46.3) fL RDW Coeff of Carlo 17.9 H (11.5-14.5) % Plt Count 128 L (130-400) K/uL MPV 11.1 H (7.4-10.4) fL Immature Gran % (Auto) 0.9 % Neut % (Auto) 73.7 % Lymph % (Auto) 18.1 % Branch % (Auto) 7.0 % Eos % (Auto) 0.0 % Baso % (Auto) 0.3 % Neut # (Auto) 2.53 (1.4-6.5) K/uL Lymph # (Auto) 0.62 L (1.2-3.4) K/uL Branch # (Auto) 0.24 (0.11-0.59) K/uL Eos # (Auto) 0.00 (0-0.5) K/uL Baso # (Auto) 0.01 (0-0.2) K/uL Immature Gran # (Auto) 0.03 H (0.00-0.02) K/uL Echinocytes 1+ PT 12.1 H (9.0-12.0) Seconds INR 1.2 H (0.9-1.1) APTT 34.4 H (21.0-31.0) Seconds PTT Ratio 1.3 Sodium 131 L (136-145) mmol/L Potassium 4.9 (3.5-5.1) mmol/L Chloride 99 (98-107) mmol/L Carbon Dioxide 20 L (21-32) mmol/L Anion Gap 12.0 H (3-11) BUN 55 H (7-18) mg/dl Creatinine 4.06 H (0.6-1.2) mg/dl Est Cr Clr Drug Dosing 10.2 ml/min Est GFR ( Amer) 11.5 Est GFR (Non-Af Amer) 9.9 BUN/Creatinine Ratio 13.4 (10-20) Glucose 114 H (70-99) mg/dl Lactate (0.4-2.0) mmol/L Calcium 8.2 L (8.5-10.1) mg/dl Total Bilirubin 0.9 (0.2-1) mg/dl AST 26 (15-37) U/L ALT 8 L (12-78) U/L Alkaline Phosphatase 64 (45-117) U/L Troponin I 0.025 (0-0.045) ng/ml NT-Pro-B Natriuret Pep > 41564 H (0-1800) pg/ml Total Protein 6.7 (6.4-8.2) gm/dl Albumin 3.0 L (3.4-5.0) gm/dl Globulin 3.7 (2.5-4.0) gm/dl Albumin/Globulin Ratio 0.8 L (0.9-2) COVID-19 Eval Order SARS-CoV-2 (PCR) (Negative) Influenza Type A (PCR) (Neg) Influenza Type B (PCR) (Neg) RSV (RT-PCR) (Neg) 11/09/20 11/09/20 11/09/20 Range/Units 08:34 08:42 08:42 WBC (4.8-10.8) K/uL RBC (4.2-5.4) M/uL Hgb (12.0-16.0) g/dL Hct (37-47) % MCV (80-100) fL MCH (25-34) pg MCHC (32-36) g/dL RDW Std Deviation (36.4-46.3) fL RDW Coeff of Carlo (11.5-14.5) % Plt Count (130-400) K/uL MPV (7.4-10.4) fL Immature Gran % (Auto) % Neut % (Auto) % Lymph % (Auto) % Branch % (Auto) % Eos % (Auto) % Baso % (Auto) % Neut # (Auto) (1.4-6.5) K/uL Lymph # (Auto) (1.2-3.4) K/uL Branch # (Auto) (0.11-0.59) K/uL Eos # (Auto) (0-0.5) K/uL Baso # (Auto) (0-0.2) K/uL Immature Gran # (Auto) (0.00-0.02) K/uL Echinocytes PT (9.0-12.0) Seconds INR (0.9-1.1) APTT (21.0-31.0) Seconds PTT Ratio Sodium (136-145) mmol/L Potassium (3.5-5.1) mmol/L Chloride (98-107) mmol/L Carbon Dioxide (21-32) mmol/L Anion Gap (3-11) BUN (7-18) mg/dl Creatinine (0.6-1.2) mg/dl Est Cr Clr Drug Dosing ml/min Est GFR ( Amer) Est GFR (Non-Af Amer) BUN/Creatinine Ratio (10-20) Glucose (70-99) mg/dl Lactate 1.9 (0.4-2.0) mmol/L Calcium (8.5-10.1) mg/dl Total Bilirubin (0.2-1) mg/dl AST (15-37) U/L ALT (12-78) U/L Alkaline Phosphatase (45-117) U/L Troponin I (0-0.045) ng/ml NT-Pro-B Natriuret Pep (0-1800) pg/ml Total Protein (6.4-8.2) gm/dl Albumin (3.4-5.0) gm/dl Globulin (2.5-4.0) gm/dl Albumin/Globulin Ratio (0.9-2) COVID-19 Eval Order CovFluRsv at [facility] SARS-CoV-2 (PCR) POSITIVE A* (Negative) Influenza Type A (PCR) Negative (Neg) Influenza Type B (PCR) Negative (Neg) RSV (RT-PCR) Negative (Neg) Imaging Data Radiologist's Impression: Chest X-Ray 11/09/20 08:31 XR chest 1V portable HISTORY: 79 years-old Female Dyspnea acute shortness of breath COMPARISON: Chest radiograph 08/04/2020 TECHNIQUE: Portable AP view the chest FINDINGS: Unchanged cardiomegaly. Pulmonary vascular congestion with reticular interstitial opacities. Calcified plaque of the thoracic aorta. No pneumothorax. Trace pleural effusions with mild bibasilar densities suggestive of atelectasis. Degenerative changes of the shoulders and spine. IMPRESSION: 1. Cardiomegaly with pulmonary vascular congestion and reticular interstitial opacities suggestive of pulmonary edema. Interstitial pneumonitis could appear similarly. 2. Trace pleural effusions. ACT 112: Negative or not required by law. The above report was generated using voice recognition software. It may contain grammatical, syntax or spelling errors. Electronically signed by: Gian Love M.D. 11/09/2020 9:41 AM ECG Data Attestation: I personally reviewed and interpreted this ECG as follows: Indication: + SOB/dyspnea Rate (beats per minute): 102 Rhythm: + atrial flutter ECG Intervals/blocks: + Normal QT-c ECG ST segments: no ST elevation ECG Findings: no PVCs MDM Narrative Patient presents to the ED with a chief complaint of shortness of breath and cough productive of yellow sputum for the past 4 days. Details above. Her vital signs reveal saturations of 88% on room air. She does not use home oxygen. Otherwise breathing appears comfortable and she is in no respiratory distress and speaking full sentences. Twelve-lead EKG shows atrial flutter at a rate of 102 with variable conduction and no ST elevation. Patient has history of atrial fib/flutter. She is on apixaban chronically. White blood count is slightly low at 3.4. Hemoglobin is 10. BUN is 55 and creatinine is 4.0. This is baseline for the patient. BNP is greater than 35,000 and troponin is negative. Based on the patient's exam and vital signs, I doubt pulmonary edema as a cause for her symptoms. Her Covid test came back positive. She likely has a Covid pneumonitis Cardiac monitoring: An order was placed for continuous cardiac monitoring. The monitor shows a rate of 108 with atrial flutter rhythm. Impression & Plan Pneumonia, Hypoxia, COVID-19 Discharge Plan Visit Data Chief Complaint: Shortness of Breath/Dyspnea ED Provider: Joey El Discharge Problem: Pneumonia, Hypoxia, COVID-19 Patient Disposition: Being Evaluated by Hospitalist Forms Stand Alone Forms: [facility], [facility] Prescriptions Prescriptions: No Action Breo Ellipta 200-25 mcg/dose blister with device 1 inh inhalation DAILY RF: 0 calcitriol 0.25 mcg capsule 0.25 mcg PO .-- RF: 0 hydralazine 25 mg tablet 25 mg PO TID Qty: 90 RF: 11 Eliquis 2.5 mg tablet 2.5 mg PO BID Qty: 60 RF: 5 bumetanide 2 mg tablet 2 mg PO BID Qty: 180 RF: 3 carvedilol 25 mg tablet 25 mg PO BID Qty: 180 RF: 3 sodium bicarbonate 650 mg tablet 650 mg PO BID Qty: 180 RF: 3 acetaminophen 325 mg tablet 650 mg PO Q6H PRN (Reason: fever or pain) RF: 0 betamethasone valerate 0.1 % ointment 1 appln TOP BID Qty: 45 RF: 1 aspirin 81 mg tablet,delayed release (DR/EC) 81 mg PO DAILY RF: 0 sevelamer carbonate 800 mg tablet 800 mg PO TIDM RF: 0 amlodipine 5 mg tablet 5 mg PO DAILY RF: 0 lidocaine 5 % Adhesive Patch,Medicated 1 patch transdermal QAM Qty: 10 RF: 0 oxycodone 5 mg Tablet 5 mg PO Q6H PRN (Reason: pain) Qty: 1 RF: 0 folic acid 1 mg Tablet 1 mg PO QAM Qty: 30 RF: 0 isosorbide mononitrate 30 mg Tablet Extended Release 24 Hr 30 mg PO QAM Qty: 30 RF: 0 levothyroxine [Synthroid] 200 mcg Tablet 200 mcg PO DAILYBB Qty: 30 RF: 0 Referrals Referrals: Mike Carrington MD [Primary Care Provider] - Discharge Problem: Pneumonia Qualifiers: Pneumonia type: due to unspecified organism Laterality: bilateral Lung location: unspecified part of lung Qualified Code(s): J18.9 - Pneumonia, unspecified organism
[2020-11-09 08:46] LABS: Basophils # (auto) 0.01 K/uL (0-0.2); Basophils % (auto) 0.3 %; Hematocrit (blood only) 29.7 % (37-47); Immature Granulocytes # (auto) 0.03 K/uL (0.00-0.02); Immature Granulocytes % (auto) 0.9 %; Lymphocytes # (auto) 0.62 K/uL (1.2-3.4); Lymphocytes % (auto) 18.1 %; Mean Corpuscular Hemoglobin 31.4 pg (25-34); Mean Corpuscular Hgb Conc 33.7 g/dL (32-36); Mean Corpuscular Volume 93.4 fL (80-100); Mean Platelet Volume 11.1 fL (7.4-10.4); Monocytes # (auto) 0.24 K/uL (0.11-0.59); Neutrophils # (auto) 2.53 K/uL (1.4-6.5); Neutrophils % (auto) 73.7 %; Platelet Count 128 K/uL (130-400); RDW Coefficient of Variation 17.9 % (11.5-14.5); RDW Standard Deviation 61.4 fL (36.4-46.3); Red Blood Count 3.18 M/uL (4.2-5.4); White Blood Count 3.43 K/uL (4.8-10.8)
[2020-11-09 08:57] LABS: INR 1.2 (0.9-1.1); Partial Thromboplastin Ratio 1.3; Partial Thromboplastin Time 34.4 Seconds (21.0-31.0); Prothrombin Time 12.1 Seconds (9.0-12.0)
[2020-11-09 09:06] LABS: Echinocytes 1+
[2020-11-09 09:09] LABS: Alanine Aminotransferase 8 U/L (12-78); Aspartate Aminotransferase 26 U/L (15-37); BUN Creatinine Ratio 13.4 (10-20); Blood Urea Nitrogen 55 mg/dl (7-18); Calcium 8.2 mg/dl (8.5-10.1); Carbon Dioxide 20 mmol/L (21-32); Chloride 99 mmol/L (98-107); Creatinine Clr Calc Pharmacy 10.2 ml/min; Est GFR (African American) 11.5; Est GFR (Non-African American) 9.9; Glucose 114 mg/dl (70-99); Potassium 4.9 mmol/L (3.5-5.1); Sodium 131 mmol/L (136-145)
[2020-11-09 09:13] LABS: Albumin Globulin Ratio 0.8 (0.9-2); Alkaline Phosphatase 64 U/L (45-117); Bilirubin,Total 0.9 mg/dl (0.2-1); Globulin 3.7 gm/dl (2.5-4.0); NT Pro B Type Natriuretic Pept > 35000 pg/ml (0-1800); Total Protein 6.7 gm/dl (6.4-8.2); Troponin I 0.025 ng/ml (0-0.045)
[2020-11-09 09:42] LABS: Influenza A virus by PCR Negative (Neg); Influenza B virus by PCR Negative (Neg); RSV by PCR Negative (Neg)
--- NOTE | 2020-11-09 09:42 | XRay Report ---
XR chest 1V portable HISTORY: 79 years-old Female Dyspnea acute shortness of breath COMPARISON: Chest radiograph 08/04/2020 TECHNIQUE: Portable AP view the chest FINDINGS: Unchanged cardiomegaly. Pulmonary vascular congestion with reticular interstitial opacities. Calcifie d plaque of the thoracic aorta. No pneumothorax. Trace pleural effusions with mild bibasilar densitie s suggestive of atelectasis. Degenerative changes of the shoulders and spine. IMPRESSION: 1. Cardiomegaly with pulmonary vascular congestion and reticular interstitial opacities suggestive of pulmonary edema. Interstitial pneumonitis could appear similarly. 2. Trace pleural effusions. ACT 112: Negative or not required by law. The above report was generated using voice recognition software. It may contain grammatical, syntax o r spelling errors. Electronically signed by: Gian Love M.D. 11/09/2020 9:41 AM
[2020-11-09 10:08] LABS: SARS CoV2 RNA(COVID-19) InHosp POSITIVE (Negative)
--- NOTE | 2020-11-09 10:12 | Electrocardiogram Report ---
Test Reason : Blood Pressure : / mmHG Vent. Rate : 102 BPM Atrial Rate : 315 BPM P-R Int : 000 ms QRS Dur : 106 ms QT Int : 338 ms P-R-T Axes : 000 -58 126 degrees QTc Int : 440 ms Atrial fibrillation Left anterior fascicular block Poor R wave progression, consider anterior PA vs. lead placement vs. LVH Nonspecific T wave abnormality Lateral leads Abnormal ECG When compared with ECG of 05-AUG-2020 10:18, Vent. rate has increased BY 37 BPM T wave inversion no longer evident in Anterior leads Confirmed by Cruz Freeman ([id number] on 11/09/2020 10:12:25 AM Referred By: [email or web address] Confirmed By:Cruz Freeman
--- NOTE | 2020-11-09 11:42 | History & Physical Report ---
Date of Service November 09, 2020 Assessment & Plan (1) COVID-19: Approximately day 4-5 of her illness. Due to her ESRD not candidate for other therapies - hypoxia- Decadron 6 mg IV - Oxygen suport with NC, HFNC, CPAP/BiPAP if she will tolerate - Self rotation every 2 hours for at least 20 min up to 2 hours. Prone if patient will participate - Continue Azithromycin and Rocephin - SCD' continue Apixaban - Limited therapy with her Renal function - Leukopenic - ESR, CRP pending - Mild increase in BUN- no other organ dysfunction (2) Hypoxia: As above (3) Pneumonia: Cough, sputum production, Leukopenic, - Increase oxygen requirement - Blood cultures pending - PCT pending - As above continue ABX (4) CHF (congestive heart failure): hfRef - Continue Carvedilol - Continue Isosorbide - Continue Hydralazine - Continue BUMEX - Her BNP has never been less than [id number] since 2019 checks - If hypotension occurs with her pneumonia and/COVID infection, scale back her diuretics and hydralazine (5) ESRD (end stage renal disease): As above, supportive care - Oral hydration - Avoid further nephrotoxic agents -Continue sodium bicarbonate, sevelamer Follow BMP (6) Diabetes: Diet controlled at home - AC/HS BG checks with loose sliding scale while on steroids and stress for acute illness - Adjust as needed (7) Secondary hyperparathyroidism: No acute needs - Her daughter is unsure if she is still taking her Calcitriol and hasn't been f illed - add back if desired, CA slightly low. May come up with dietary intake (8) Hyponatremia: Chronic-likely secondary to chronic renal failure - Follow daily BMP - No acute need to treat at this time (9) Hypothyroidism: TSH elevated at 10 on last check several months ago Check TSH Continue home levothyroxine dose for now as may not have been compliant with it at home (10) Anemia associated with chronic renal failure: Hemoglobin stable from previous at 10.0, mild thrombocytopenia likely secondary to Covid-19 infection Follow CBC (11) DVT prophylaxis: Apixaban Disposition-admit to medical surgical with telemetry Covid unit DNR/DNI and has POLST form filled out with palliative care last admission indicating DNR/DNI, limited trial of antibiotics and tube feeds if in state of poor prognosis History of Present Illness Primary Care Provider: Enzo Carrington MD 79 YOF comes to hospital today for increasing cough, sputum production, shortness of breath. Patient has a past medical history of non-compliance with dialysis and medications, ESRD (no longer on dialysis), HTN, Mitral regurg) hfRef (25-30%), hypoparathyroidism, subclavian artery stenosis, asthma, anxiety, depression, DM, afib, SIADH hyponatremia. Patient reports that she has not been feeling well for the past 3-4 days and that she has been coughing up green colored sputum. She was tested for COVID and this came back positive. She has not been vaccinated. The patient is a poor historian and is unsure of her medications, and confabulating stories of her going out grocery shopping and visiting her friends. I spoke to her daughter Linda Dupont to gather information and review her medications. She reports that the patient doesn't really go anywhere other than down to the laundry mat downstairs of her house and she went there on Thursday as well as earlier in the week. She was seen by her family members about 2 days ago and noted that her apartment was a little unkept which is unusual for her because she has not been feeling well. I reviewed her contacts with the daughter and advised them to self-quarantine, symptom monitor, and seek medical attention if they become symptomatic. Patient does have frequent productive cough, but overall looks mildly hypervolemic, but much improved from July. She is warm and well perfused. Pleasantly confused at this time. She has CKD stage 5 and used to get her volume and pressures managed through dialysis. Secondary to non-compliance with medication and dialysis regime, her PermCath was removed and renal replacement therapy is no longer a treatment option. She was seen by palliative care in August for her worsening heart failure and renal failure. She remains DNR/DNI. Her daughter Linda Dupont is secondary contact, but her son Jamir is listed as primary contact- works dayshift at the [employer] and is unable to have his phone on him. If unable to contact Jamir, Linda Dupont is available. Linda Dupont takes her to her appointments and assists her with her medications as well. Allergies Allergy/AdvReac Type Severity Reaction Status Date / Time doxycycline Allergy Unknown Hives Verified 11/09/20 09:48 labetalol Allergy Unknown tired and Verified 11/09/20 09:48 depressed lorazepam Allergy Unknown "SQUIRRELLY Verified 11/09/20 09:48 " Pork/Porcine Containing Allergy Unknown tired and Verified 11/09/20 09:48 Products depression tetracycline Allergy Unknown unknown(not Verified 11/09/20 09:48 100% sure if she's allergic to it) tramadol AdvReac Unknown dizzy, Verified 11/09/20 09:48 emesis Home Medications Medication Instructions Recorded Confirmed Type hydralazine 25 mg tablet 25 mg PO TID #90 tab 01/28/19 11/09/20 Rx folic acid 1 mg PO QAM #30 tab 04/06/19 11/09/20 Rx aspirin 81 mg PO DAILY 07/14/19 11/09/20 History betamethasone valerate 0.1 % 1 appln TOP BID #45 gm 08/09/19 11/09/20 Rx topical ointment amlodipine 5 mg PO DAILY 02/16/20 11/09/20 History sevelamer carbonate 800 mg PO TIDM 02/16/20 11/09/20 History lidocaine 1 patch TRANSDERMAL QAM #10 ea 02/18/20 11/09/20 Rx oxycodone 5 mg PO Q6H PRN #1 tab 02/25/20 11/09/20 Rx acetaminophen 325 mg tablet 650 mg PO Q6H PRN tab 03/05/20 11/09/20 History calcitriol 0.25 mcg capsule 0.25 mcg PO MOWEFR cap 03/06/20 11/09/20 History fluticasone furoate 200 1 inh INHALATION DAILY 03/06/20 11/09/20 History mcg-vilanterol 25 mcg/dose inhalation powder isosorbide mononitrate 30 mg PO QAM #30 tab 08/06/20 11/09/20 Rx levothyroxine [Synthroid] 200 mcg PO DAILYBB #30 tab 08/06/20 11/09/20 Rx apixaban 2.5 mg tablet 2.5 mg PO BID #60 tab 08/07/20 11/09/20 Rx bumetanide 2 mg tablet 2 mg PO BID #180 tab 08/07/20 11/09/20 Rx carvedilol 25 mg tablet 25 mg PO BID #180 tab 08/07/20 11/09/20 Rx sodium bicarbonate 650 mg tablet 650 mg PO BID #180 tab 08/07/20 11/09/20 Rx Past Med/Surg History Medical History Accidental fall Anemia associated with chronic renal failure Asthma Atrial fibrillation Dx 02/2019. On Eliquis. Per Dr. Grimaldo 03/03/19 office note, suspect afib was present for a long time given significant biatrial dilatation. Cardiomyopathy Systolic CHF, EF 25-30% on echo 03/28/19 with global HK. Per cardiology consult 02/14/19, cannot exlude ischemic etiology, but may also be 2/2 prolonged tachycardia. Euvolemic on exam at [facility] 09/07/19. Carotid artery stenosis without cerebral infarction < 50% bilateral carotid stenosis per 2018 imaging (*No imaging in our records but this was noted by PCP at 06/2019 office visit) Chronic kidney disease, stage 4 (severe) Cognitive impairment Daughter, Linda Dupont, primary core shaper Depression Diabetes diet controlled ESRD (end stage renal disease) on dialysis pt to do dialysis MWF [facility] [place] [facility] but has been refusing to go and according to the daughter she has not been there for about the last 2 weeks. 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) Stage 5 chronic kidney disease not on chronic dialysis Systolic CHF EF 25-30% per 03/2019 echo Surgical History H/O colonoscopy History of dilatation and curettage History of vascular access device RIGHT UPPER CHEST PERMACATH FOR DIALYSIS 04/01/19 S/P arteriovenous (AV) fistula creation Jul 2019 Family History Father Heart disease Mother Diabetes Heart disease Hypertension Daughter Breast cancer Brother Hypertension Grandmother (Maternal) Family hx of colon cancer Denies family history of Ovarian cancer Colorectal cancer Colonic polyp Social History Smoking Status: Never smoker Second Hand Exposure: No; Hx Alcohol Use: No Hx Substance Use: No Preferred Language: Cameroonian Communication Ability: Effective History Department Chair Required: No Beliefs That Will Affect Care: None marital status: Single Current Living Situation: Alone current occupational status: retired current occupation: [employer] Feels Safe at Home: Yes Assistive Devices: Glasses and Oxygen - Continuous Review of Systems Review of Systems: REVIEW OF SYSTEMS: Poor historian Constitutional: No fever, sweats or chills Eyes: No diplopia, no worsening or blurred vision ENT: (+) difficulty hearing, no trouble swallowing Respiratory: (+) cough, sputum, dyspnea at rest or on exertion Cardiovascular: No chest pain, tightness or palpitations Abdomen: No pain, nausea, vomiting, diarrhea or constipation Musculoskeletal: No joint pain, calf pain, swelling Neurologic: No weakness, numbness/tingling, or balance problems Psychiatric: (+)anxiety or depression Skin: No rash or itch Physical Exam Physical Exam: PHYSICAL EXAM: General: awake, alert, no apparent distress Head: Normocephalic, atraumatic ENT: PERRL, EOMI, no pharyngeal exudate, mucous membranes moist Neuro: AAO x 3, speech clear and confused, strength intact bilaterally 5/5, sensation intact and equal all extremities and dermatomes, no pronator drift Chest: equal rise and fall of the chest, no accessory muscle use, no heaves or thrills, scattered rhonci throughout, productive yellow sputum, on 4LNC Cardiac: Regular rate and rhythm, telemetry reviewed- afib no ectopy, skin warm dry, cap refill <3 seconds, peripheral pulses +2 no JVD,r, no JVD, (+)1 edema to lower extremities bilateral GI: NABS x 4 quadrants, soft, nontender to palpation, no rebound, guarding or tenderness : Spontaneously voiding, no pain, no CVA tenderness, Extremities: Normal inspection, no peripheral edema or erythema, calfs nontender to palpation Psych: calm, cooperative, not anxious, but as above pleasantly confused Skin: hemangioma to lip, and bruise to her right harper. Results & Data Results & Data ([facility]) Vital Signs (Past 12 Hours) Vital Signs Temp Pulse Pulse Resp BP Pulse Ox 11/09/20 10:31 89 27 H 109/73 95 11/09/20 10:00 90 26 H 129/95 92 11/09/20 09:30 104 H 28 H 144/77 H 95 11/09/20 09:00 94 H 29 H 127/87 95 11/09/20 08:45 108 H 20 96 11/09/20 08:30 37.4 C 113 H 16 129/83 97 Laboratory Results Abnormal lab results 11/09/20 11/09/20 11/09/20 Range/Units 08:34 08:34 08:34 WBC 3.43 L (4.8-10.8) K/uL RBC 3.18 L (4.2-5.4) M/uL Hgb 10.0 L (12.0-16.0) g/dL Hct 29.7 L (37-47) % RDW Std Deviation 61.4 H (36.4-46.3) fL RDW Coeff of Carlo 17.9 H (11.5-14.5) % Plt Count 128 L (130-400) K/uL MPV 11.1 H (7.4-10.4) fL Lymph # (Auto) 0.62 L (1.2-3.4) K/uL Immature Gran # (Auto) 0.03 H (0.00-0.02) K/uL PT 12.1 H (9.0-12.0) Seconds INR 1.2 H (0.9-1.1) APTT 34.4 H (21.0-31.0) Seconds Sodium 131 L (136-145) mmol/L Carbon Dioxide 20 L (21-32) mmol/L Anion Gap 12.0 H (3-11) BUN 55 H (7-18) mg/dl Creatinine 4.06 H (0.6-1.2) mg/dl Glucose 114 H (70-99) mg/dl Calcium 8.2 L (8.5-10.1) mg/dl ALT 8 L (12-78) U/L NT-Pro-B Natriuret Pep > 51543 H (0-1800) pg/ml Albumin 3.0 L (3.4-5.0) gm/dl Albumin/Globulin Ratio 0.8 L (0.9-2) SARS-CoV-2 (PCR) (Negative) 11/09/20 Range/Units 08:42 WBC (4.8-10.8) K/uL RBC (4.2-5.4) M/uL Hgb (12.0-16.0) g/dL Hct (37-47) % RDW Std Deviation (36.4-46.3) fL RDW Coeff of Carlo (11.5-14.5) % Plt Count (130-400) K/uL MPV (7.4-10.4) fL Lymph # (Auto) (1.2-3.4) K/uL Immature Gran # (Auto) (0.00-0.02) K/uL PT (9.0-12.0) Seconds INR (0.9-1.1) APTT (21.0-31.0) Seconds Sodium (136-145) mmol/L Carbon Dioxide (21-32) mmol/L Anion Gap (3-11) BUN (7-18) mg/dl Creatinine (0.6-1.2) mg/dl Glucose (70-99) mg/dl Calcium (8.5-10.1) mg/dl ALT (12-78) U/L NT-Pro-B Natriuret Pep (0-1800) pg/ml Albumin (3.4-5.0) gm/dl Albumin/Globulin Ratio (0.9-2) SARS-CoV-2 (PCR) POSITIVE A* (Negative) Diagnostic Findings Chest X-Ray 11/09/20 08:31 XR chest 1V portable HISTORY: 79 years-old Female Dyspnea acute shortness of breath COMPARISON: Chest radiograph 08/04/2020 TECHNIQUE: Portable AP view the chest FINDINGS: Unchanged cardiomegaly. Pulmonary vascular congestion with reticular interstitial opacities. Calcified plaque of the thoracic aorta. No pneumothorax. Trace pleural effusions with mild bibasilar densities suggestive of atelectasis. Degenerative changes of the shoulders and spine. IMPRESSION: 1. Cardiomegaly with pulmonary vascular congestion and reticular interstitial opacities suggestive of pulmonary edema. Interstitial pneumonitis could appear similarly. 2. Trace pleural effusions. Electronically signed by: Gian Love M.D. 11/09/2020 9:41 AM Medications Administered Discontinued Medications Albuterol (Albut/Ipratrop 3mg/0.5mg Neb 3 Ml Vial) 3 ml INH NOW STA Stop: 11/09/20 08:31 Last Admin: 11/09/20 08:44 Dose: 3 ml Documented by: [id number] Azithromycin 500 mg/ Dextrose 255 mls @ 127.5 mls/hr IV NOW STA Stop: 11/09/20 10:31 Last Admin: 11/09/20 09:56 Dose: 127.5 mls/hr Documented by: [id number] Ceftriaxone Sodium (Rocephin) 1,000 mg in 50 mls @ 100 mls/hr IV NOW STA Stop: 11/09/20 09:01 Last Infusion: 11/09/20 09:50 Dose: 0 mls/hr Documented by: [id number] Admin: 11/09/20 09:20 Dose: 100 mls/hr Documented by: [id number] Home Medications hydralazine 25 mg tablet 25 mg PO TID #90 tab 01/28/19 [Rx Confirmed 11/09/20] folic acid 1 mg PO QAM #30 tab 04/06/19 [Rx Confirmed 11/09/20] aspirin 81 mg PO DAILY 07/14/19 [History Confirmed 11/09/20] betamethasone valerate 0.1 % topical ointment 1 appln TOP BID #45 gm 08/09/19 [Rx Confirmed 11/09/20] amlodipine 5 mg PO DAILY 02/16/20 [History Confirmed 11/09/20] sevelamer carbonate 800 mg PO TIDM 02/16/20 [History Confirmed 11/09/20] lidocaine 1 patch TRANSDERMAL QAM #10 ea 02/18/20 [Rx Confirmed 11/09/20] oxycodone 5 mg PO Q6H PRN #1 tab 02/25/20 [Rx Confirmed 11/09/20] acetaminophen 325 mg tablet 650 mg PO Q6H PRN tab 03/05/20 [History Confirmed 11/09/20] calcitriol 0.25 mcg capsule 0.25 mcg PO MOWEFR cap 03/06/20 [History Confirmed 11/09/20] fluticasone furoate 200 mcg-vilanterol 25 mcg/dose inhalation powder 1 inh INHALATION DAILY 03/06/20 [History Confirmed 11/09/20] isosorbide mononitrate 30 mg PO QAM #30 tab 08/06/20 [Rx Confirmed 11/09/20] levothyroxine [Synthroid] 200 mcg PO DAILYBB #30 tab 08/06/20 [Rx Confirmed 11/09/20] apixaban 2.5 mg tablet 2.5 mg PO BID #60 tab 08/07/20 [Rx Confirmed 11/09/20] bumetanide 2 mg tablet 2 mg PO BID #180 tab 08/07/20 [Rx Confirmed 11/09/20] carvedilol 25 mg tablet 25 mg PO BID #180 tab 08/07/20 [Rx Confirmed 11/09/20] sodium bicarbonate 650 mg tablet 650 mg PO BID #180 tab 08/07/20 [Rx Confirmed 11/09/20] ECG Additional Comments: Vent. Rate : 102 BPM Atrial Rate : 315 BPM P-R Int : 000 ms QRS Dur : 106 ms QT Int : 338 ms P-R-T Axes : 000 -58 126 degrees QTc Int : 440 ms Atrial fibrillation Left anterior fascicular block Poor R wave progression, consider anterior SD vs. lead placement vs. LVH Nonspecific T wave abnormality Lateral leads Abnormal ECG When compared with ECG of 05-AUG-2020 10:18, Vent. rate has increased BY 37 BPM T wave inversion no longer evident in Anterior leads Code Status & VTE Plan Code Status CODE: DNR/DNI VTE: SCD's, Apixaban 2.5 BID Supervising Physician Co-Signing Physician Notes RESIDENT PROGRAMS ASSISTANT Supervision note: I have personally seen and examined the patient and discussed and verified the wong points of the history and physical along with the plan with GALO Thomas with the following exceptions and/or additions: This patient is a 79-year-old female with history noted as above, here with worsening cough and green sputum production over the last 4 days or so, found to be Covid-19+ in the ER with possible interstitial pneumonia seen on chest x-ray. She denies any fevers or chills, no nausea or vomiting, no abdominal pain or diarrhea. Otherwise states "I feel great." In the ER, she was noted to be hypoxic and required 3 to 4 L nasal cannula to keep pulse ox greater than 90% She was given IV ceftriaxone and azithromycin and referred for admission to the medicine service History and ROS reviewed as above Vitals reviewed Gen: Alert, awake, oriented x2, NAD HEENT: Anicteric sclerae, EOMI, with large hemangioma of the upper lip chronic from previous CV: Irregularly irregular, normal rate, 2/6 systolic murmur at the apex, nl S1S2 Pulm: Positive bibasilar crackles and occasional expiratory wheeze Abd: +BS soft NT ND no masses or hernias Ext: No edema, no calf tenderness Skin: No rashes, warm/dry, small area of ecchymosis on right anterior harper Neuro: Full strength throughout Laboratory values reviewed, chest x-ray image reviewed, ECG reviewed 79-year-old female with history noted as above, here with COVID-19 pneumonia and acute respiratory failure with hypoxia -Plan outlined as above, continue with IV dexamethasone, antibiotics for possible secondary bacterial pneumonia Continue supplemental O2 to keep pulse ox greater than 90-92% Given other comorbid conditions, especially notable for CKD stage V and she has adamantly declined hemodialysis in the past, she is at high risk for poor outcome with Covid-19 disease Reaffirmed that she is a DNR/DNI Continue other medications as above PG Care Time/CCT Total # of Minutes Spent Total Time Spent with Patient: Total time spent is greater than 50% in coordination of care (as documented) at patient's floor/unit and/or counseling patient: Coding Level of Care Code 81991 Initial Inpt Care Lvl 3 Diagnoses COVID-19 U07.1 Hypoxia R09.02 Pneumonia J18.9 Laterality: bilateral Lung location: unspecified part of lung Pneumonia type: due to unspecified organism CHF (congestive heart failure) I50.9 Heart failure chronicity: acute on chronic Heart failure type: unspecified ESRD (end stage renal disease) N18.6 Diabetes E11.22; N18.5 Chronic kidney disease stage: stage 5, not on chronic dialysis Diabetes mellitus complication detail: with chronic kidney disease Diabetes mellitus complication status: with kidney complications Diabetes mellitus remote computer terminal operator insulin use: without penitentiary use Diabetes mellitus type: type 2 Secondary hyperparathyroidism N25.81 Hyponatremia E87.1 Hypothyroidism E03.9 Hypothyroidism type: acquired Anemia associated with chronic renal failure D63.1 DVT prophylaxis Z29.9 (1) Diabetes Chronic kidney disease stage: stage 5, not on chronic dialysis Diabetes mellitus complication detail: with chronic kidney disease Diabetes mellitus complication status: with kidney complications Diabetes mellitus penitentiary insulin use: without remote computer terminal operator use Diabetes mellitus type: type 2 Qualified Code(s): E11.22 - Type 2 diabetes mellitus with diabetic chronic kidney disease; N18.5 - Chronic kidney disease, stage 5 (2) CHF (congestive heart failure) Heart failure chronicity: acute on chronic Heart failure type: unspecified Qualified Code(s): I50.9 - Heart failure, unspecified (3) Pneumonia Laterality: bilateral Lung location: unspecified part of lung Pneumonia type: due to unspecified organism Qualified Code(s): J18.9 - Pneumonia, unspecified organism (4) Hypothyroidism Hypothyroidism type: acquired Qualified Code(s): E03.9 - Hypothyroidism, unspecified
[2020-11-09] MEDS ORDERED: INSULIN ASPART 100 UNITS/ML 3 ML PEN SC SCH (14:46)
[2020-11-09] MEDS ORDERED: ACETAMINOPHEN 325 MG TAB PO PRN (14:46)
[2020-11-09] MEDS ORDERED: ALBUTEROL HFA 8 GM INHALER INH PRN (14:46)
[2020-11-09] MEDS ORDERED: hydrALAZINE HCL 25 MG TAB PO SCH ×2 (14:46→21:00)
[2020-11-09] MEDS ORDERED: GLUCOSE 40% GEL 15 GM TUBE PO PRN (14:46)
[2020-11-09] MEDS ORDERED: POLYETHYLENE (MIRALAX) 17 GM PACK PO PRN (14:46)
[2020-11-09] MEDS ORDERED: CARBOHYDRATES FOR HYPOGLYCEMIA PO PRN (14:46)
[2020-11-09] MEDS ORDERED: GLUCAGON FOR INJ 1 MG VIAL SQ PRN (14:46)
[2020-11-09] MEDS ORDERED: GLUCOSE 10 TAB/TUBE PO PRN (14:46)
[2020-11-09] MEDS ORDERED: CALCITRIOL 0.25 MCG CAPSULE PO SCH (14:46)
[2020-11-09] MEDS ORDERED: DEXTROSE 50% 50 ML SYRINGE IV PRN (14:46)
[2020-11-09] MEDS: dexAMETHasone 6 MG in SYRINGE 0 ML IV SCH (16:25)
[2020-11-09] MEDS ORDERED: BUMETANIDE 1 MG TAB PO SCH (17:00)
[2020-11-09] MEDS ORDERED: SEVELAMER HCL 800 MG TABLET PO SCH (17:00)
[2020-11-09] MEDS: SEVELAMER HCL 800 MG TABLET PO SCH (17:24)
[2020-11-09] MEDS: BUMETANIDE 1 MG TAB PO SCH (17:24)
[2020-11-09] MEDS: INSULIN ASPART 100 UNITS/ML 3 ML PEN SC SCH ×2 (17:53→21:20)
[2020-11-09] MEDS: ACETAMINOPHEN 325 MG TAB PO PRN (19:53)
[2020-11-09] MEDS: APIXABAN 2.5 MG TAB PO SCH (20:57)
[2020-11-09] MEDS: SODIUM BICARBONATE 650 MG TAB PO SCH (20:57)
[2020-11-09] MEDS: carvediloL 25 MG TAB PO SCH (20:57)
[2020-11-09] MEDS ORDERED: carvediloL 25 MG TAB PO SCH (21:00)
[2020-11-09] MEDS ORDERED: SODIUM BICARBONATE 650 MG TAB PO SCH (21:00)
[2020-11-09] MEDS ORDERED: APIXABAN 2.5 MG TAB PO SCH (21:00)
[2020-11-09] MEDS: MELATONIN 3 MG TAB PO PRN (21:54)
[2020-11-10] MEDS: LEVOTHYROXINE SODIUM 200 MCG TABLET PO SCH (04:56)
[2020-11-10] MEDS ORDERED: LEVOTHYROXINE SODIUM 200 MCG TABLET PO SCH (06:30)
[2020-11-10 06:47] LABS: Basophils # (auto) 0.01 K/uL (0-0.2); Basophils % (auto) 0.3 %; Hematocrit (blood only) 32.6 % (37-47); Hemoglobin 10.7 g/dL (12.0-16.0); Immature Granulocytes # (auto) 0.02 K/uL (0.00-0.02); Immature Granulocytes % (auto) 0.7 %; Lymphocytes # (auto) 0.57 K/uL (1.2-3.4); Lymphocytes % (auto) 18.9 %; Mean Corpuscular Hemoglobin 31.1 pg (25-34); Mean Corpuscular Hgb Conc 32.8 g/dL (32-36); Mean Corpuscular Volume 94.8 fL (80-100); Mean Platelet Volume 11.6 fL (7.4-10.4); Monocytes # (auto) 0.12 K/uL (0.11-0.59); Neutrophils % (auto) 76.1 %; Platelet Count 143 K/uL (130-400); RDW Coefficient of Variation 18.1 % (11.5-14.5); RDW Standard Deviation 63.1 fL (36.4-46.3); Red Blood Count 3.44 M/uL (4.2-5.4); White Blood Count 3.02 K/uL (4.8-10.8)
[2020-11-10 06:59] LABS: INR 1.2 (0.9-1.1); Prothrombin Time 12.2 Seconds (9.0-12.0)
[2020-11-10 07:23] LABS: BUN Creatinine Ratio 15.1 (10-20); C Reactive Protein 6.54 mg/dl (0-0.29); Calcium 8.3 mg/dl (8.5-10.1); Creatinine Clr Calc Pharmacy 10.2 ml/min; Est GFR (African American) 11.6; Magnesium 2.5 mg/dl (1.8-2.4)
[2020-11-10 07:33] LABS: Thyroid Stimulating Hormone 7.87 uIu/ml (0.300-4.500)
[2020-11-10 07:45] LABS: T4 Free Thyroxine 1.56 ng/dl (0.8-1.6)
[2020-11-10] MEDS ORDERED: FLUTICASONE/VILANTEROL 200/25MCG 14 PUFFS/INHALER INH SCH (09:00)
[2020-11-10] MEDS ORDERED: ISOSORBIDE MONO EXTENDED REL 30 MG TABCR PO SCH (09:00)
[2020-11-10] MEDS ORDERED: ASPIRIN 81 MG ECTAB PO SCH (09:00)
[2020-11-10] MEDS: INSULIN ASPART 100 UNITS/ML 3 ML PEN SC SCH ×4 (09:20→21:13)
[2020-11-10] MEDS: APIXABAN 2.5 MG TAB PO SCH ×2 (09:23→20:48)
[2020-11-10] MEDS: carvediloL 25 MG TAB PO SCH ×2 (09:23→20:48)
[2020-11-10] MEDS: SODIUM BICARBONATE 650 MG TAB PO SCH ×2 (09:23→20:48)
[2020-11-10] MEDS: FOLIC ACID 1 MG TAB PO SCH (09:24)
[2020-11-10] MEDS: AZITHROMYCIN 250 MG TAB PO SCH (09:24)
[2020-11-10] MEDS: ISOSORBIDE MONO EXTENDED REL 30 MG TABCR PO SCH (09:24)
[2020-11-10] MEDS: ASPIRIN 81 MG ECTAB PO SCH (09:24)
[2020-11-10] MEDS: amLODIPine BESYLATE 5 MG TAB PO SCH (09:24)
[2020-11-10] MEDS: SEVELAMER HCL 800 MG TABLET PO SCH ×3 (09:24→16:55)
[2020-11-10] MEDS: dexAMETHasone 6 MG in SYRINGE 0 ML IV SCH (09:25)
[2020-11-10] MEDS: BUMETANIDE 1 MG TAB PO SCH ×2 (09:25→16:54)
[2020-11-10] MEDS: cefTRIAXone SODIUM 1,000 MG in DEXTROSE 5% 50 ML IV SCH (09:26)
[2020-11-10] MEDS: FLUTICASONE/VILANTEROL 200/25MCG 14 PUFFS/INHALER INH SCH (09:26)
[2020-11-10] MEDS: ACETAMINOPHEN 325 MG TAB PO PRN (11:36)
[2020-11-10] MEDS ORDERED: ACETAMINOPHEN 500 MG TAB PO PRN (15:59)
[2020-11-10] MEDS ORDERED: ACETAMINOPHEN 500 MG TAB ONE (16:03)
--- NOTE | 2020-11-10 16:07 | Hospitalist Progress Note ---
Date of Service November 10, 2020 Assessment & Plan (1) COVID-19: Approximately day 4-5 of her illness at time of admission. Due to her ESRD not candidate for other therapies Requiring 2.5LNC now, was previously needing 4L - hypoxia- continue Decadron 6 mg IV daily - continue Oxygen suport with NC, HFNC, CPAP/BiPAP if she will tolerate and if needed - Self rotation every 2 hours for at least 20 min up to 2 hours. Prone if patient will participate-she reports she cannot lie prone - Continue Azithromycin and Rocephin x 5 day course - continue Apixaban - Limited therapy with her Renal function - Leukopenic - ESR, CRP increased from previous BCxs-NGTD continue to encourage po intake change tylenol to 1000mg po q8h prn pain for myalgias (2) Hypoxia: As above (3) Pneumonia: Cough, sputum production, Leukopenic,CXR with interstitial infiltrates - Increased oxygen requirement - Blood cultures pending - PCT normal - As above continue ABX (4) CHF (congestive heart failure): hfRef, no acute issues - Continue Carvedilol - Continue Isosorbide - Continue Hydralazine - HOLD BUMEX today as BUN rising and poor po intake - [place] [address] since 2019 checks - If hypotension occurs with her pneumonia and/COVID infection, scale back her diuretics and hydralazine (5) ESRD (end stage renal disease): As above, supportive care - Oral hydration - Avoid further nephrotoxic agents -Continue sodium bicarbonate, sevelamer Follow BMP has adamantly declined further HD renal function stable today with hyponatremia and met acidosis (6) Diabetes: Diet controlled at home - AC/HS BG checks with loose sliding scale while on steroids and stress for acute illness - Adjust as needed (7) Secondary hyperparathyroidism: No acute needs - Her daughter is unsure if she is still taking her Calcitriol and hasn't been filled - add back if desired, CA slightly low. May come up with dietary intake (8) Hyponatremia: Chronic-likely secondary to chronic renal failure - Follow daily BMP - No acute need to treat at this time (9) Hypothyroidism: TSH elevated at 10 on last check several months ago Check TSH here and down to 7, normal FT4 Continue home levothyroxine dose for now as may not have been compliant with it at home (10) Anemia associated with chronic renal failure: Hemoglobin stable from previous at 10.0, mild thrombocytopenia likely secondary to Covid-19 infection Follow CBC (11) DVT prophylaxis: Apixaban Disposition-continued stay on medical surgical with telemetry on Covid precautions DNR/DNI and has POLST form filled out with palliative care last admission indicating DNR/DNI, limited trial of antibiotics and tube feeds if in state of poor prognosis Admission and Anticipated Discharge Date Admission Date: November 09, 2020 Subjective Pt had issues with hypothermia today and had shreya hugger placed and warm blankets. Temp came up somewhat, but pt does not like the shreya hugger and threw it off. She reports aching all over her body and would like to take more tylenol. She is drinking but not eating much. Tele with Afib in 60-s Review of Systems 2 Review of Systems: All systems reviewed & are unremarkable except as noted in HPI & below Physical Exam Constitutional: WD/WN, vitals as above Eyes: + anicteric sclerae ENMT: Mouth: + lip abnormality (upper lip hemangioma) Neck: trachea midline, no thyromegaly Respiratory: normal respiratory effort, lungs clear to auscultation Cardiovascular: Rate/Rhythm: regular rate and + irregularly irregular Heart Sounds: no murmur Extremities: no edema Chest (Breasts): Chest: normal inspection of chest Gastrointestinal (Abdomen): normal bowel sounds, soft, nontender, no hepatosplenomegaly Musculoskeletal: Extremities: extremities normal to inspection; no cyanosis and no clubbing Skin: no rashes, warm and dry Neurologic: moves all extremities and awake; no focal motor deficits Psychiatric: Orientation: alert, oriented to person, oriented to place and cooperative Affect: + anxious affect Mood: + anxious mood Lymphatic: no lymphedema Results & Data Results & Data ([facility]) Vital Signs (Past 12 Hours) Vital Signs Temp Pulse Pulse Resp BP BP Pulse Ox 11/10/20 14:48 95 H 18 122/76 92 11/10/20 14:20 94 H 11/10/20 11:08 88 20 123/80 92 11/10/20 11:00 88 20 123/80 92 11/10/20 08:06 36.0 C L 86 20 133/88 91 11/10/20 07:00 102 H Laboratory Results 0511/10/20 11/10/20 Range/Units 10:55 08:07 06:23 WBC (4.8-10.8) K/uL RBC (4.2-5.4) M/uL Hgb (12.0-16.0) g/dL Hct (37-47) % MCV (80-100) fL MCH (25-34) pg MCHC (32-36) g/dL RDW Std Deviation (36.4-46.3) fL RDW Coeff of Carlo (11.5-14.5) % Plt Count (130-400) K/uL MPV (7.4-10.4) fL Immature Gran % (Auto) % Neut % (Auto) % Lymph % (Auto) % [place] % (Auto) % Eos % (Auto) % Baso % (Auto) % Neut # (Auto) (1.4-6.5) K/uL Lymph # (Auto) (1.2-3.4) K/uL [place] # (Auto) (0.11-0.59) K/uL Eos # (Auto) (0-0.5) K/uL Baso # (Auto) (0-0.2) K/uL Immature Gran # (Auto) (0.00-0.02) K/uL ESR (0-30) mm/hr PT (9.0-12.0) Seconds INR (0.9-1.1) Sodium 129 L (136-145) mmol/L Potassium 5.0 (3.5-5.1) mmol/L Chloride 96 L (98-107) mmol/L Carbon Dioxide 20 L (21-32) mmol/L Anion Gap 12.0 H (3-11) BUN 61 H (7-18) mg/dl Creatinine 4.04 H (0.6-1.2) mg/dl Est Cr Clr Drug Dosing 10.2 ml/min Est GFR ( Amer) 11.6 Est GFR (Non-Af Amer) 10.0 BUN/Creatinine Ratio 15.1 (10-20) Glucose 196 H (70-99) mg/dl POC Glucose 195 H 193 H (70-99) mg/dl Calcium 8.3 L (8.5-10.1) mg/dl Magnesium 2.5 H (1.8-2.4) mg/dl C-Reactive Protein 6.54 H (0-0.29) mg/dl Procalcitonin (0-0.5) ng/ml TSH 7.870 H (0.300-4.500) uIu/ml Free T4 1.56 (0.8-1.6) ng/dl 11/10/20 11/10/20 11/10/20 Range/Units 06:23 06:23 06:23 WBC 3.02 L (4.8-10.8) K/uL RBC 3.44 L (4.2-5.4) M/uL Hgb 10.7 L (12.0-16.0) g/dL Hct 32.6 L (37-47) % MCV 94.8 (80-100) fL MCH 31.1 (25-34) pg MCHC 32.8 (32-36) g/dL RDW Std Deviation 63.1 H (36.4-46.3) fL RDW Coeff of Carlo 18.1 H (11.5-14.5) % Plt Count 143 (130-400) K/uL MPV 11.6 H (7.4-10.4) fL Immature Gran % (Auto) 0.7 % Neut % (Auto) 76.1 % Lymph % (Auto) 18.9 % [place] % (Auto) 4.0 % Eos % (Auto) 0.0 % Baso % (Auto) 0.3 % Neut # (Auto) 2.30 (1.4-6.5) K/uL Lymph # (Auto) 0.57 L (1.2-3.4) K/uL [place] # (Auto) 0.12 (0.11-0.59) K/uL Eos # (Auto) 0.00 (0-0.5) K/uL Baso # (Auto) 0.01 (0-0.2) K/uL Immature Gran # (Auto) 0.02 (0.00-0.02) K/uL ESR 28 (0-30) mm/hr PT 12.2 H (9.0-12.0) Seconds INR 1.2 H (0.9-1.1) Sodium (136-145) mmol/L Potassium (3.5-5.1) mmol/L Chloride (98-107) mmol/L Carbon Dioxide (21-32) mmol/L Anion Gap (3-11) BUN (7-18) mg/dl Creatinine (0.6-1.2) mg/dl Est Cr Clr Drug Dosing ml/min Est GFR ( Amer) Est GFR (Non-Af Amer) BUN/Creatinine Ratio (10-20) Glucose (70-99) mg/dl POC Glucose (70-99) mg/dl Calcium (8.5-10.1) mg/dl Magnesium (1.8-2.4) mg/dl C-Reactive Protein (0-0.29) mg/dl Procalcitonin (0-0.5) ng/ml TSH (0.300-4.500) uIu/ml Free T4 (0.8-1.6) ng/dl 11/09/20 11/09/20 11/09/20 Range/Units 20:55 16:28 08:34 WBC (4.8-10.8) K/uL RBC (4.2-5.4) M/uL Hgb (12.0-16.0) g/dL Hct (37-47) % MCV (80-100) fL MCH (25-34) pg MCHC (32-36) g/dL RDW Std Deviation (36.4-46.3) fL RDW Coeff of Carlo (11.5-14.5) % Plt Count (130-400) K/uL MPV (7.4-10.4) fL Immature Gran % (Auto) % Neut % (Auto) % Lymph % (Auto) % [place] % (Auto) % Eos % (Auto) % Baso % (Auto) % Neut # (Auto) (1.4-6.5) K/uL Lymph # (Auto) (1.2-3.4) K/uL [place] # (Auto) (0.11-0.59) K/uL Eos # (Auto) (0-0.5) K/uL Baso # (Auto) (0-0.2) K/uL Immature Gran # (Auto) (0.00-0.02) K/uL ESR (0-30) mm/hr PT (9.0-12.0) Seconds INR (0.9-1.1) Sodium (136-145) mmol/L Potassium (3.5-5.1) mmol/L Chloride (98-107) mmol/L Carbon Dioxide (21-32) mmol/L Anion Gap (3-11) BUN (7-18) mg/dl Creatinine (0.6-1.2) mg/dl Est Cr Clr Drug Dosing ml/min Est GFR ( Amer) Est GFR (Non-Af Amer) BUN/Creatinine Ratio (10-20) Glucose (70-99) mg/dl POC Glucose 139 H 122 H (70-99) mg/dl Calcium (8.5-10.1) mg/dl Magnesium (1.8-2.4) mg/dl C-Reactive Protein (0-0.29) mg/dl Procalcitonin 0.42 (0-0.5) ng/ml TSH (0.300-4.500) uIu/ml Free T4 (0.8-1.6) ng/dl 11/09/20 11/09/20 Range/Units 08:34 08:34 WBC (4.8-10.8) K/uL RBC (4.2-5.4) M/uL Hgb (12.0-16.0) g/dL Hct (37-47) % MCV (80-100) fL MCH (25-34) pg MCHC (32-36) g/dL RDW Std Deviation (36.4-46.3) fL RDW Coeff of Carlo (11.5-14.5) % Plt Count (130-400) K/uL MPV (7.4-10.4) fL Immature Gran % (Auto) % Neut % (Auto) % Lymph % (Auto) % [place] % (Auto) % Eos % (Auto) % Baso % (Auto) % Neut # (Auto) (1.4-6.5) K/uL Lymph # (Auto) (1.2-3.4) K/uL [place] # (Auto) (0.11-0.59) K/uL Eos # (Auto) (0-0.5) K/uL Baso # (Auto) (0-0.2) K/uL Immature Gran # (Auto) (0.00-0.02) K/uL ESR 33 H (0-30) mm/hr PT (9.0-12.0) Seconds INR (0.9-1.1) Sodium (136-145) mmol/L Potassium (3.5-5.1) mmol/L Chloride (98-107) mmol/L Carbon Dioxide (21-32) mmol/L Anion Gap (3-11) BUN (7-18) mg/dl Creatinine (0.6-1.2) mg/dl Est Cr Clr Drug Dosing ml/min Est GFR ( Amer) Est GFR (Non-Af Amer) BUN/Creatinine Ratio (10-20) Glucose (70-99) mg/dl POC Glucose (70-99) mg/dl Calcium (8.5-10.1) mg/dl Magnesium (1.8-2.4) mg/dl C-Reactive Protein 6.45 H (0-0.29) mg/dl Procalcitonin (0-0.5) ng/ml TSH (0.300-4.500) uIu/ml Free T4 (0.8-1.6) ng/dl PG Care Time/CCT Total # of Minutes Spent Total Time Spent with Patient: Total time spent is greater than 50% in coordination of care (as documented) at patient's floor/unit and/or counseling patient: Coding Level of Care Code 25994 Subseq Hosp Care Lvl 3 Diagnoses COVID-19 U07.1 Hypoxia R09.02 Pneumonia J18.9 Laterality: bilateral Lung location: unspecified part of lung Pneumonia type: due to unspecified organism CHF (congestive heart failure) I50.9 Heart failure chronicity: acute on chronic Heart failure type: unspecified ESRD (end stage renal disease) N18.6 Diabetes E11.22; N18.5 Diabetes mellitus type: type 2 Diabetes mellitus mcc insulin use: without meterman use Diabetes mellitus complication status: with kidney complications Diabetes mellitus complication detail: with chronic kidney disease Chronic kidney disease stage: stage 5, not on chronic dialysis Secondary hyperparathyroidism N25.81 Hyponatremia E87.1 Hypothyroidism E03.9 Hypothyroidism type: acquired Anemia associated with chronic renal failure D63.1 DVT prophylaxis Z29.9 (1) Pneumonia Laterality: bilateral Lung location: unspecified part of lung Pneumonia type: due to unspecified organism Qualified Code(s): J18.9 - Pneumonia, unspecified organism (2) CHF (congestive heart failure) Heart failure chronicity: acute on chronic Heart failure type: unspecified Qualified Code(s): I50.9 - Heart failure, unspecified (3) Diabetes Diabetes mellitus type: type 2 Diabetes mellitus mcc insulin use: without meterman use Diabetes mellitus complication status: with kidney complications Diabetes mellitus complication detail: with chronic kidney diseas e Chronic kidney disease stage: stage 5, not on chronic dialysis Qualified Code(s): E11.22 - Type 2 diabetes mellitus with diabetic chronic kidney disease; N18.5 - Chronic kidney disease, stage 5 (4) Hypothyroidism Hypothyroidism type: acquired Qualified Code(s): E03.9 - Hypothyroidism, unspecified
[2020-11-10] MEDS: LORazepam 0.5 MG TAB PO PRN (16:54)
[2020-11-11] MEDS: LEVOTHYROXINE SODIUM 200 MCG TABLET PO SCH (06:21)
[2020-11-11 07:39] LABS: Basophils # (auto) 0.01 K/uL (0-0.2); Basophils % (auto) 0.1 %; Hematocrit (blood only) 33.2 % (37-47); Hemoglobin 11.3 g/dL (12.0-16.0); Immature Granulocytes # (auto) 0.05 K/uL (0.00-0.02); Immature Granulocytes % (auto) 0.4 %; Lymphocytes # (auto) 0.53 K/uL (1.2-3.4); Lymphocytes % (auto) 4.7 %; Mean Corpuscular Hemoglobin 31.6 pg (25-34); Mean Corpuscular Volume 92.7 fL (80-100); Mean Platelet Volume 12.3 fL (7.4-10.4); Monocytes # (auto) 0.33 K/uL (0.11-0.59); Monocytes % (auto) 2.9 %; Neutrophils # (auto) 10.41 K/uL (1.4-6.5); Neutrophils % (auto) 91.9 %; Platelet Count 151 K/uL (130-400); RDW Coefficient of Variation 17.9 % (11.5-14.5); RDW Standard Deviation 60.5 fL (36.4-46.3); Red Blood Count 3.58 M/uL (4.2-5.4); White Blood Count 11.33 K/uL (4.8-10.8)
[2020-11-11 07:57] LABS: BUN Creatinine Ratio 18.8 (10-20); C Reactive Protein 4.47 mg/dl (0-0.29); Calcium 7.2 mg/dl (8.5-10.1); Est GFR (African American) 12.6; Est GFR (Non-African American) 10.9; Magnesium 2.6 mg/dl (1.8-2.4); Potassium 5.8 mmol/L (3.5-5.1)
[2020-11-11] MEDS: ASPIRIN 81 MG ECTAB PO SCH (08:21)
[2020-11-11] MEDS: ISOSORBIDE MONO EXTENDED REL 30 MG TABCR PO SCH (08:22)
[2020-11-11] MEDS: BUMETANIDE 1 MG TAB PO SCH ×2 (08:23→17:48)
[2020-11-11] MEDS: FOLIC ACID 1 MG TAB PO SCH (08:23)
[2020-11-11] MEDS: AZITHROMYCIN 250 MG TAB PO SCH (08:23)
[2020-11-11] MEDS: APIXABAN 2.5 MG TAB PO SCH ×2 (08:24→20:03)
[2020-11-11] MEDS: carvediloL 25 MG TAB PO SCH ×2 (08:26→20:04)
[2020-11-11] MEDS: SEVELAMER HCL 800 MG TABLET PO SCH ×3 (08:26→17:41)
[2020-11-11] MEDS: amLODIPine BESYLATE 5 MG TAB PO SCH (08:26)
[2020-11-11] MEDS: INSULIN ASPART 100 UNITS/ML 3 ML PEN SC SCH ×4 (08:27→21:09)
[2020-11-11] MEDS: FLUTICASONE/VILANTEROL 200/25MCG 14 PUFFS/INHALER INH SCH (08:28)
[2020-11-11] MEDS: SODIUM BICARBONATE 650 MG TAB PO SCH ×2 (08:28→20:04)
[2020-11-11] MEDS: dexAMETHasone 6 MG in SYRINGE 0 ML IV SCH (08:34)
[2020-11-11] MEDS: cefTRIAXone SODIUM 1,000 MG in DEXTROSE 5% 50 ML IV SCH (08:59)
[2020-11-11] MEDS ORDERED: PATIROMER CALCIUM SORBITEX 8.4 GM PACK PO SCH (09:00)
[2020-11-11] MEDS: LORazepam 0.5 MG TAB PO PRN (09:00)
[2020-11-11] MEDS: SODIUM BICARBONATE 8.4% 150 MEQ in DEXTROSE 5% 1,000 ML IV SCH ×2 (09:19→23:26)
--- NOTE | 2020-11-11 09:57 | Hospitalist Progress Note ---
Date of Service November 11, 2020 Assessment & Plan (1) COVID-19: With COVID-19 Pneumonia on CXR Approximately day 4-5 of her illness at time of admission. Due to her ESRD not candidate for Remdesevir Initially needed 4L and weaned down to 2.5L, now on HFNC 45L, 80% FiO2 on AM of 11/11 and transferred to PCU Has some encephalopathy now as well, very poor appetite Also with development of hypothermia on evening of 11/10-she frequently refuses to have shreya hugger or warm blankets in place - Leukopenic initially - ESR, CRP increased from previous BCxs-NGTD - hypoxia- continue Decadron 6 mg IV daily - continue supplemental O2 now with HFNC and wean off as tolerated - Prone if patient will participate-she reports she cannot lie prone - Continue Azithromycin and Rocephin x 5 day course - continue Apixaban -continue to encourage po intake -continue tylenol 1000mg po q8h prn pain for myalgias -follow CBC, CRP, CMP -if CRP>7.5 tomorrow and remains on HFNC, could consider giving Tocilizumab (2) Hypoxia: As above, secondary to COVID-19 PNA Could be some component for renal failure and CHF -continue Bumex 2mg po bid, consider IV diuresis if I/O net balance positive each day follow CXR in AM Suffering from air hunger and does not desire to be intubated. Has been on BiPAP previous admissions which caused severe anxiety -use low dose morphine 1mg IV prn air hunger-helped a lot today with being able to tolerate HFNC Flutter valve and IS (3) Acute metabolic encephalopathy: seems worse on 11/11 secondary to worsening hypoxia, hyponatremia, possibly some secondary to very low dose of ativan 0.25mg po x 1 given, and hypothermia dc ativan -support oxygenation as above -shreya hugger and warm blankets if tolerated although she continues to throw blankets off herself -giving Na+ HCO3 gtt (4) Pneumonia: Cough, sputum production, Leukopenic,CXR with interstitial infiltrates secondary to COVID - Blood cultures NGTD - PCT normal - As above continue ABX with ceftriaxone and azithro in case of secondary bacterial involvement pulmonary toilet, HFNC follow CXR in AM (5) Hyperkalemia: K+ 5.8 today secondary to renal failure -continue bumex 2mg po bid and consider IV Bumex if not improving start patiromer once daily -renal diet -start bicarb gtt appreciate Nephro consult does not want HD (6) CHF (congestive heart failure): Chronic systolic CHF, EF 25-30%, some pulm edema perhaps on CXR but has very poor po intake, is net negative I/Os - Continue Carvedilol - Continue Isosorbide - continue BUMEX - [place] less [place] [address] since 2019 checks - If hypotension occurs with her pneumonia and/COVID infection, scale back her diuretics and hydralazine strict I/Os, Castillo placed (7) ESRD (end stage renal disease): As above, supportive care, was on HD in the past and was noncompliant, then stopped going, does not desire to have HD again - Avoid further nephrotoxic agents -HOLD calcitriol, sevelamer -continue sodium bicarb tabs and gtt started today Follow BMP renal function stable today with acute on chronic hyponatremia and met acidosis (8) Diabetes: Diet controlled at home - AC/HS BG checks with loose sliding scale while on steroids and stress for acute illness - Adjust as needed (9) Secondary hyperparathyroidism: No acute needs - Her daughter is unsure if she is still taking her Calcitriol and hasn't been filled - hold calcitriol (10) Hyponatremia: Acute on Chronic-secondary to chronic renal failure - Follow daily BMP (11) Hypothyroidism: TSH elevated at 10 on last check several months ago Check TSH here and down to 7, normal FT4 Continue home levothyroxine dose for now as may not have been compliant with it at home (12) Anemia associated with chronic renal failure: Hemoglobin stable to increased from previous at 11.3, mild thrombocytopenia likely secondary to Covid-19 infection is now improving Follow CBC (13) Metabolic acidosis: HCO3 down to 18, 2/2 renal failure, dehydration started HCO3 gtt follow BMP (14) DVT prophylaxis: Apixaban Disposition-transfer to PCU for worsening respiratory status on Covid precautions DNR/DNI and has POLST form filled out with palliative care last admission indicating DNR/DNI, limited trial of antibiotics and tube feeds if in state of poor prognosis Palliative Consult placed for support and to continue to help with goals of care, management of symptoms if condition continues to worsen, and for family support Zoom call arranged with pt and family by RN today which was greatly beneficial Admission and Anticipated Discharge Date Admission Date: November 09, 2020 Subjective I was contacted by respiratory therapist urgently this morning as pt was found to potentially have a POx in the 70s, but it seemed her temp was so low that an accurate POx reading could not be obtained. The pt was placed on Vapotherm HFNC and eventually found with a POx on forehead to be at 92% once on HFNC. I came to see her and she continued to report being too hot and wanted the shreya hugger off her body despite her hypothermia. She was certainly more confused than normal, but was conversive with me. We discussed transfer to PCU and discussed her worsening respiratory status, low temperature, and high potassium. I again reconfirmed with her that if her resp status continued to decline, she did not want intuabtion and would be ok with receiving medications for comfort such as morphine and she was in agreement with this. She did receive one dose of ativan 0.25mg po this AM for anxiety but this seems to make her confused and did not help her anxiety. She was anxious today as well. She denies feeling SOB, and has a general sense of not feeling well. She is incontinent to urine. She was transferred to PCU and I called her daughter, Luan Dupont, to update her on her worsening condition. Luan Dupont was interested in setting up a Zoom call to see her mom after we discussed the possibility that her mom's condition could continue to deteriorate. Later in the afternoon, the RN informed me that the pt was suffering from air hunger while on HFNC despite POx in mid 90s. She was given a low dose of IV morphine and had significant improvement in her condition. Tele with afib, rates controlled Review of Systems Review of Systems: All systems reviewed & are unremarkable except as noted in HPI & below Physical Exam Constitutional: WD/WN, vitals as above Eyes: + anicteric sclerae ENMT: Mouth: + lip abnormality (upper lip hemangioma) Neck: trachea midline, no thyromegaly Respiratory: + tachypneic (mild) Auscultation: + crackles (bases) and + bronchial breath sounds (in left middle lung field); no rhonchi and no wheezes Cardiovascular: Rate/Rhythm: regular rate and + irregularly irregular Heart Sounds: no murmur Extremities: no edema Chest (Breasts): Chest: normal inspection of chest Gastrointestinal (Abdomen): normal bowel sounds, soft, nontender, no hepatosplenomegaly Musculoskeletal: Extremities: extremities normal to inspection; no cyanosis and no clubbing Skin: a bit ashen in color and cool to the touch Neurologic: moves all extremities and awake Psychiatric: Orientation: alert, oriented to person, oriented to place and cooperative Affect: + anxious affect Mood: + anxious mood Lymphatic: no lymphedema Results & Data Results & Data ([facility]) Vital Signs (Past 12 Hours) Vital Signs Temp Pulse Pulse Pulse Resp BP BP 11/11/20 08:51 74 20 11/11/20 08:07 96 H 22 121/82 11/11/20 07:00 88 11/11/20 04:55 35 C L 11/11/20 04:16 86 20 123/76 11/11/20 00:03 100 H 11/10/20 23:06 85 18 115/80 Pulse Ox 11/11/20 08:51 91 11/11/20 08:07 11/11/20 07:00 11/11/20 04:55 11/11/20 04:16 92 11/11/20 00:03 11/10/20 23:06 91 Laboratory Results 11/11/20 11/11/20 11/11/20 Range/Units 20:10 16:29 11:02 WBC (4.8-10.8) K/uL RBC (4.2-5.4) M/uL Hgb (12.0-16.0) g/dL Hct (37-47) % MCV (80-100) fL MCH (25-34) pg MCHC (32-36) g/dL RDW Std Deviation (36.4-46.3) fL RDW Coeff of Carlo (11.5-14.5) % Plt Count (130-400) K/uL MPV (7.4-10.4) fL Immature Gran % (Auto) % Neut % (Auto) % Lymph % (Auto) % [place] % (Auto) % Eos % (Auto) % Baso % (Auto) % Neut # (Auto) (1.4-6.5) K/uL Lymph # (Auto) (1.2-3.4) K/uL [place] # (Auto) (0.11-0.59) K/uL Eos # (Auto) (0-0.5) K/uL Baso # (Auto) (0-0.2) K/uL Immature Gran # (Auto) (0.00-0.02) K/uL ESR (0-30) mm/hr Sodium (136-145) mmol/L Potassium (3.5-5.1) mmol/L Chloride (98-107) mmol/L Carbon Dioxide (21-32) mmol/L Anion Gap (3-11) BUN (7-18) mg/dl Creatinine (0.6-1.2) mg/dl Est Cr Clr Drug Dosing ml/min Est GFR ( Amer) Est GFR (Non-Af Amer) BUN/Creatinine Ratio (10-20) Glucose (70-99) mg/dl POC Glucose 173 H 195 H 179 H (70-99) mg/dl Calcium (8.5-10.1) mg/dl Magnesium (1.8-2.4) mg/dl C-Reactive Protein (0-0.29) mg/dl 11/11/20 11/11/20 11/11/20 Range/Units 07:59 04:44 04:44 WBC (4.8-10.8) K/uL RBC (4.2-5.4) M/uL Hgb (12.0-16.0) g/dL Hct (37-47) % MCV (80-100) fL MCH (25-34) pg MCHC (32-36) g/dL RDW Std Deviation (36.4-46.3) fL RDW Coeff of Carlo (11.5-14.5) % Plt Count (130-400) K/uL MPV (7.4-10.4) fL Immature Gran % (Auto) % Neut % (Auto) % Lymph % (Auto) % [place] % (Auto) % Eos % (Auto) % Baso % (Auto) % Neut # (Auto) (1.4-6.5) K/uL Lymph # (Auto) (1.2-3.4) K/uL [place] # (Auto) (0.11-0.59) K/uL Eos # (Auto) (0-0.5) K/uL Baso # (Auto) (0-0.2) K/uL Immature Gran # (Auto) (0.00-0.02) K/uL ESR 22 (0-30) mm/hr Sodium 126 L (136-145) mmol/L Potassium 5.8 H D (3.5-5.1) mmol/L Chloride 97 L (98-107) mmol/L Carbon Dioxide 18 L (21-32) mmol/L Anion Gap 11.0 (3-11) BUN 71 H (7-18) mg/dl Creatinine 3.76 H (0.6-1.2) mg/dl Est Cr Clr Drug Dosing 11.0 ml/min Est GFR ( Amer) 12.6 Est GFR (Non-Af Amer) 10.9 BUN/Creatinine Ratio 18.8 (10-20) Glucose 151 H (70-99) mg/dl POC Glucose 139 H (70-99) mg/dl Calcium 7.2 L (8.5-10.1) mg/dl Magnesium 2.6 H (1.8-2.4) mg/dl C-Reactive Protein 4.47 H (0-0.29) mg/dl 11/11/20 Range/Units 04:44 WBC 11.33 H (4.8-10.8) K/uL RBC 3.58 L (4.2-5.4) M/uL Hgb 11.3 L (12.0-16.0) g/dL Hct 33.2 L (37-47) % MCV 92.7 (80-100) fL MCH 31.6 (25-34) pg MCHC 34.0 (32-36) g/dL RDW Std Deviation 60.5 H (36.4-46.3) fL RDW Coeff of Carlo 17.9 H (11.5-14.5) % Plt Count 151 (130-400) K/uL MPV 12.3 H (7.4-10.4) fL Immature Gran % (Auto) 0.4 % Neut % (Auto) 91.9 % Lymph % (Auto) 4.7 % [place] % (Auto) 2.9 % Eos % (Auto) 0.0 % Baso % (Auto) 0.1 % Neut # (Auto) 10.41 H (1.4-6.5) K/uL Lymph # (Auto) 0.53 L (1.2-3.4) K/uL [place] # (Auto) 0.33 (0.11-0.59) K/uL Eos # (Auto) 0.00 (0-0.5) K/uL Baso # (Auto) 0.01 (0-0.2) K/uL Immature Gran # (Auto) 0.05 H (0.00-0.02) K/uL ESR (0-30) mm/hr Sodium (136-145) mmol/L Potassium (3.5-5.1) mmol/L Chloride (98-107) mmol/L Carbon Dioxide (21-32) mmol/L Anion Gap (3-11) BUN (7-18) mg/dl Creatinine (0.6-1.2) mg/dl Est Cr Clr Drug Dosing ml/min Est GFR ( Amer) Est GFR (Non-Af Amer) BUN/Creatinine Ratio (10-20) Glucose (70-99) mg/dl POC Glucose (70-99) mg/dl Calcium (8.5-10.1) mg/dl Magnesium (1.8-2.4) mg/dl C-Reactive Protein (0-0.29) mg/dl PG Care Time/CCT Total # of Minutes Spent Total Time Spent with Patient: Total time spent is greater than 50% in coordination of care (as documented) at patient's floor/unit and/or counseling patient: Coding Level of Care Code 19861 Subseq Hosp Care Lvl 3 Diagnoses COVID-19 U07.1 Hypoxia R09.02 Acute metabolic encephalopathy G93.41 Pneumonia J18.9 Laterality: bilateral Lung location: unspecified part of lung Pneumonia type: due to unspecified organism Hyperkalemia E87.5 CHF (congestive heart failure) I50.9 Heart failure chronicity: acute on chronic Heart failure type: unspecified ESRD (end stage renal disease) N18.6 Diabetes E11.22; N18.5 Chronic kidney disease stage: stage 5, not on chronic dialysis Diabetes mellitus complication detail: with chronic kidney disease Diabetes mellitus complication status: with kidney complications Diabetes mellitus mcc insulin use: without mcc use Diabetes mellitus type: type 2 Secondary hyperparathyroidism N25.81 Hyponatremia E87.1 Hypothyroidism E03.9 Hypothyroidism type: acquired Anemia associated with chronic renal failure D63.1 Metabolic acidosis E87.2 DVT prophylaxis Z29.9 (1) Diabetes Chronic kidney disease stage: stage 5, not on chronic dialysis Diabetes mellitus complication detail: with chronic kidney disease Diabetes mellitus complication status: with kidney complications Diabetes mellitus intermediate card tender insulin use: without intermediate card tender use Diabetes mellitus type: type 2 Qualified Code(s): E11.22 - Type 2 diabetes mellitus with diabetic chronic kidney disease; N18.5 - Chronic kidney disease, stage 5 (2) CHF (congestive heart failure) Heart failure chronicity: acute on chronic Heart failure type: unspecified Qualified Code(s): I50.9 - Heart failure, unspecified (3) Hypothyroidism Hypothyroidism type: acquired Qualified Code(s): E03.9 - Hypothyroidism, unspecified (4) Pneumonia Laterality: bilateral Lung location: unspecified part of lung Pneumonia type: due to unspecified organism Qualified Code(s): J18.9 - Pneumonia, unspecified organism
--- NOTE | 2020-11-11 11:48 | Nephrology Consultation ---
Date of Consultation November 11, 2020 Assessment & Plan (1) COVID-19: Supportive care and Decadron are being provided. Critically ill and prognosis poor. Maintained on dose adjusted Eliquis for atrial fibrillation. (2) CHF (congestive heart failure): Continue Bumex to encourage even to slightly negative fluid balance. (3) ESRD (end stage renal disease): HD not to be considered part of care plan per patient and family wishes. HCO3 gtt being provided. Patiromer for hyperkalemia ordered. Monitor metabolic profile and I/O's. Castillo being placed for monitoring. Medications are appropriately dosed for kidney dysfunction. Calcitriol and sevelamer held in acute setting at this time. (4) Hyponatremia: Acute on chronic. Associated with advanced kidney dysfunction and poor PO intake. Continue loop diuretic and monitor. (5) Anemia associated with chronic renal failure: JEIMY therapy deferred with Hgb >11. History of Present Illness Reason for Consultation: RALPH/CKD Requesting Physician: April Landry MD Attending Physician: April Landry MD History of Present Illness Ms. 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 Her Hog Cutter is Dr. Parikh. Previous evaluation revealed atrophy of the R kidney and resistant hypertension. In 03/24 Ms. Figueroa progressed to ESRD and required R IJ THC insertion and initiation of HD for fluid and electrolyte management. Unfortunately she was poorly adherent to her prescribed dialysis regimen and frequently missed treatments. In 08/25 Ms. Figueroa stopped attending her treatments all together and in 09/22 she agreed to be discharged from outpatient dialysis services. Ms. Figueroa subsequently had her THC removed. She was scheduled for outpatient Nephrology follow up but again was poorly adherent to scheduled visits. In 07/25 arrangements were made for AVF creation. Ms. Figueroa did not keep her surgical appointment. Her last Nephrology visit was 02/[address] Parikh. It was noted that due to her age and medical noncompliance that conservative medical therapy would be her best option. During hospitalization for congestive heart failure in July, Therese confirmed for Dr. Hassan that she does not want dialysis again even if her condition deteriorates. Medical history is also notable for ischemic cardiomyopathy with HFrEF as well as atrial fibrillation. Ms. Figueroa was admitted to [facility] last evening with COVID pneumonia. She was transferred to the ICU this AM. She is critically ill and currently unable to participate in providing medical history. I called and spoke with her son (Jamir) and daughter (Linda Dupont) today. We reviewed the plan of care. They emphasized a goal of keepi ng their mother comfortable and confirmed that dialysis will not be considered in the plan of care. I spoke to the bedside nurse and also discussed the patient and plan of care with Dr. Landry. Allergies Allergy/AdvReac Type Severity Reaction Status Date / Time doxycycline Allergy Unknown Hives Verified 11/09/20 09:48 labetalol Allergy Unknown tired and Verified 11/09/20 09:48 depressed lorazepam Allergy Unknown "SQUIRRELLY Verified 11/09/20 09:48 " Pork/Porcine Containing Allergy Unknown tired and Verified 11/09/20 09:48 Products depression tetracycline Allergy Unknown unknown(not Verified 11/09/20 09:48 100% sure if she's allergic to it) tramadol AdvReac Unknown dizzy, Verified 11/09/20 09:48 emesis Home Medications Medication Instructions Recorded Confirmed Type aspirin 81 mg PO DAILY 07/14/19 11/09/20 History betamethasone valerate 0.1 % 1 appln TOP BID #45 gm 08/09/19 11/09/20 Rx topical ointment lidocaine 1 patch TRANSDERMAL QAM #10 ea 02/18/20 11/09/20 Rx acetaminophen 325 mg tablet 650 mg PO Q6H PRN tab 03/05/20 11/09/20 History calcitriol 0.25 mcg capsule 0.25 mcg PO MOWEFR cap 03/06/20 11/09/20 History bumetanide 2 mg tablet 2 mg PO BID #180 tab 08/07/20 11/09/20 Rx amlodipine 5 mg tablet 5 mg PO DAILY 11/11/20 11/11/20 History apixaban 2.5 mg tablet 2.5 mg PO BID 11/11/20 11/11/20 History carvedilol 25 mg tablet 25 mg PO BID 11/11/20 11/11/20 History fluticasone furoate 200 1 inh INHALATION DAILY 11/11/20 11/11/20 History mcg-vilanterol 25 mcg/dose inhalation powder isosorbide mononitrate 30 mg 30 mg PO DAILY 11/11/20 11/11/20 History tablet,extended release 24 hr levothyroxine 200 mcg tablet 200 mcg PO DAILY 11/11/20 11/11/20 History sevelamer HCl 800 mg tablet 800 mg PO TID 11/11/20 11/11/20 History sodium bicarbonate 650 mg tablet 650 mg PO BID 11/11/20 11/11/20 History Patient History Medical History Accidental fall Anemia associated with chronic renal failure Asthma Atrial fibrillation Dx 02/2019. On Eliquis. Per Dr. Grimaldo 03/03/19 office note, suspect afib was present for a long time given significant biatrial dilatation. Cardiomyopathy Systolic CHF, EF 25-30% on echo 03/28/19 with global HK. Per cardiology consult 02/14/19, cannot exlude ischemic etiology, but may also be 2/2 prolonged tachycardia. Euvolemic on exam at PAT 09/07/19. Carotid artery stenosis without cerebral infarction < 50% bilateral carotid stenosis per 2018 imaging (*No imaging in our records but this was noted by PCP at 06/2019 office visit) Chronic kidney disease, stage 4 (severe) Cognitive impairment Daughter, Linda Dupont, primary equipment analyst Depression Diabetes diet controlled ESRD (end stage renal disease) on dialysis pt to do dialysis MWF in [facility] but has been refusing to go and according to the daughter she has not been there for about the last 2 weeks. 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) Stage 5 chronic kidney disease not on chronic dialysis Systolic CHF EF 25-30% per 03/2019 echo Surgical History H/O colonoscopy History of dilatation and curettage History of vascular access device RIGHT UPPER CHEST PERMACATH FOR DIALYSIS 04/01/19 S/P arteriovenous (AV) fistula creation Jul 2019 Family History Father Heart disease Mother Diabetes Heart disease Hypertension Daughter Breast cancer Brother Hypertension Grandmother (Maternal) Family hx of colon cancer Denies family history of Ovarian cancer Colorectal cancer Colonic polyp Social History (Reviewed 11/11/20 @ 11:55 by CHAU Nicholson Smoking Status: Never smoker Second Hand Exposure: No; Do You Dip or Chew Tobacco: No; Tobacco Cessation Education Requested by Patient: No Hx Alcohol Use: No Hx Substance Use: No Preferred Language: Panamanian Communication Ability: Effective Rd Manager Required: No Beliefs That Will Affect Care: None marital status: Single Current Living Situation: Alone current occupational status: retired current occupation: [employer] Other Information That Helps Us Care for You: No Feels Safe at Home: Yes Safety Concerns: Feels Safe At This Time Assistive Devices: Cane and Oxygen - Continuous Review of Systems Review of Systems: Unobtainable due to cognitive status Physical Exam Physical Exam: Deferred due to COVID Results & Data ([facility]) Vital Signs (Past 12 Hours) Vital Signs Temp Pulse Pulse Pulse Resp BP BP 11/11/20 10:18 80 124/81 11/11/20 10:12 89 20 11/11/20 10:00 89 11/11/20 08:51 74 20 11/11/20 08:07 96 H 22 11/11/20 07:00 88 11/11/20 04:55 35 C L 11/11/20 04:16 86 20 123/76 11/11/20 00:03 100 H BP Pulse Ox 11/11/20 10:18 97 11/11/20 10:12 96 11/11/20 10:00 11/11/20 08:51 91 11/11/20 08:07 121/82 11/11/20 07:00 11/11/20 04:55 11/11/20 04:16 92 11/11/20 00:03 Laboratory Results Laboratory Results - last 24 hr 11/10/20 11/10/20 11/11/20 16:52 20:48 04:44 WBC 11.33 H RBC 3.58 L Hgb 11.3 L Hct 33.2 L MCV 92.7 MCH 31.6 MCHC 34.0 RDW Std Deviation 60.5 H RDW Coeff of Carlo 17.9 H Plt Count 151 MPV 12.3 H Immature Gran % (Auto) 0.4 Neut % (Auto) 91.9 Lymph % (Auto) 4.7 [place] % (Auto) 2.9 Eos % (Auto) 0.0 Baso % (Auto) 0.1 Neut # (Auto) 10.41 H Lymph # (Auto) 0.53 L [place] # (Auto) 0.33 Eos # (Auto) 0.00 Baso # (Auto) 0.01 Immature Gran # (Auto) 0.05 H ESR Sodium Potassium Chloride Carbon Dioxide Anion Gap BUN Creatinine Est Cr Clr Drug Dosing Est GFR ( Amer) Est GFR (Non-Af Amer) BUN/Creatinine Ratio Glucose POC Glucose 185 H 142 H Calcium Magnesium C-Reactive Protein 11/11/20 11/11/20 11/11/20 04:44 04:44 07:59 WBC RBC Hgb Hct MCV MCH MCHC RDW Std Deviation RDW Coeff of Carlo Plt Count MPV Immature Gran % (Auto) Neut % (Auto) Lymph % (Auto) [place] % (Auto) Eos % (Auto) Baso % (Auto) Neut # (Auto) Lymph # (Auto) [place] # (Auto) Eos # (Auto) Baso # (Auto) Immature Gran # (Auto) ESR 22 Sodium 126 L Potassium 5.8 H D Chloride 97 L Carbon Dioxide 18 L Anion Gap 11.0 BUN 71 H Creatinine 3.76 H Est Cr Clr Drug Dosing 11.0 Est GFR ( Amer) 12.6 Est GFR (Non-Af Amer) 10.9 BUN/Creatinine Ratio 18.8 Glucose 151 H POC Glucose 139 H Calcium 7.2 L Magnesium 2.6 H C-Reactive Protein 4.47 H 11/11/20 11:02 WBC RBC Hgb Hct MCV MCH MCHC RDW Std Deviation RDW Coeff of Carlo Plt Count MPV Immature Gran % (Auto) Neut % (Auto) Lymph % (Auto) [place] % (Auto) Eos % (Auto) Baso % (Auto) Neut # (Auto) Lymph # (Auto) [place] # (Auto) Eos # (Auto) Baso # (Auto) Immature Gran # (Auto) ESR Sodium Potassium Chloride Carbon Dioxide Anion Gap BUN Creatinine Est Cr Clr Drug Dosing Est GFR ( Amer) Est GFR (Non-Af Amer) BUN/Creatinine Ratio Glucose POC Glucose 179 H Calcium Magnesium C-Reactive Protein PG Care Time/CCT Total # of Minutes Spent Total Time Spent with Patient: Total time spent is greater than 50% in coordination of care (as documented) at patient's floor/unit and/or counseling patient: Coding Level of Care Code 10901 Inpt Consult Level 4 Diagnoses COVID-19 U07.1 CHF (congestive heart failure) I50.9 Heart failure chronicity: acute on chronic Heart failure type: unspecified ESRD (end stage renal disease) N18.6 Hyponatremia E87.1 Anemia associated with chronic renal failure D63.1 (1) CHF (congestive heart failure) Heart failure chronicity: acute on chronic Heart failure type: unspecified Qualified Code(s): I50.9 - Heart failure, unspecified
[2020-11-11] MEDS: MoRPHine SULFATE 2 MG/ML CARP IV PRN ×3 (13:39→20:04)
[2020-11-11] MEDS: MELATONIN 3 MG TAB PO PRN (21:56)
[2020-11-12] MEDS: LEVOTHYROXINE SODIUM 200 MCG TABLET PO SCH (04:51)
[2020-11-12] MEDS: MoRPHine SULFATE 2 MG/ML CARP IV PRN (04:54)
[2020-11-12 06:42] LABS: Hemoglobin 11.6 g/dL (12.0-16.0); Immature Granulocytes # (auto) 0.08 K/uL (0.00-0.02); Immature Granulocytes % (auto) 0.4 %; Lymphocytes # (auto) 0.34 K/uL (1.2-3.4); Lymphocytes % (auto) 1.8 %; Mean Corpuscular Hemoglobin 31.3 pg (25-34); Mean Corpuscular Hgb Conc 34.1 g/dL (32-36); Mean Corpuscular Volume 91.6 fL (80-100); Mean Platelet Volume 12.6 fL (7.4-10.4); Monocytes % (auto) 1.6 %; Neutrophils # (auto) 18.11 K/uL (1.4-6.5); Neutrophils % (auto) 96.2 %; Platelet Count 156 K/uL (130-400); RDW Coefficient of Variation 17.8 % (11.5-14.5); RDW Standard Deviation 59.8 fL (36.4-46.3); Red Blood Count 3.71 M/uL (4.2-5.4); White Blood Count 18.83 K/uL (4.8-10.8)
[2020-11-12 07:08] LABS: BUN Creatinine Ratio 20.7 (10-20); C Reactive Protein 2.88 mg/dl (0-0.29); Calcium 6.9 mg/dl (8.5-10.1); Est GFR (African American) 13.8; Est GFR (Non-African American) 11.9; Magnesium 2.3 mg/dl (1.8-2.4)
--- NOTE | 2020-11-12 07:49 | XRay Report ---
XR chest 1V portable CLINICAL HISTORY: Pneumonia. Hypoxia. COMPARISON STUDY: 11/09/2020 FINDINGS: The study is rotated. The heart is enlarged. Left hemidiaphragm is obscured suggesting left basilar atelectasis/consolidation and/or pleural fluid. There are subtle peripheral airspace opacity suspicious for a multifocal pneumonia. A small right pleural effusion is suspected.[ IMPRESSION: 1. Rotated study 2. Subtle bilateral pulmonary airspace opacities suspicious for multifocal pneumonia 3. Suspected small pleural effusions 5. Ill-definition left hemidiaphragm suggesting left lower lobe atelectasis/consolidation and/or pleu ral fluid. ACT 112: Negative or not required by law. Electronically signed by: Marek Garcia M.D. 11/12/2020 7:48 AM
[2020-11-12] MEDS: INSULIN ASPART 100 UNITS/ML 3 ML PEN SC SCH (08:00)
[2020-11-12] MEDS: carvediloL 25 MG TAB PO SCH (08:07)
[2020-11-12] MEDS: dexAMETHasone 6 MG in SYRINGE 0 ML IV SCH (08:07)
[2020-11-12] MEDS: APIXABAN 2.5 MG TAB PO SCH (08:08)
[2020-11-12] MEDS: BUMETANIDE 1 MG TAB PO SCH (08:08)
[2020-11-12] MEDS: amLODIPine BESYLATE 5 MG TAB PO SCH (08:08)
[2020-11-12] MEDS: SODIUM BICARBONATE 650 MG TAB PO SCH (08:08)
[2020-11-12] MEDS: ISOSORBIDE MONO EXTENDED REL 30 MG TABCR PO SCH (08:08)
[2020-11-12] MEDS: AZITHROMYCIN 250 MG TAB PO SCH (08:08)
[2020-11-12] MEDS: ASPIRIN 81 MG ECTAB PO SCH (08:08)
[2020-11-12] MEDS: FLUTICASONE/VILANTEROL 200/25MCG 14 PUFFS/INHALER INH SCH (08:09)
--- NOTE | 2020-11-12 10:14 | Palliative Care Consultation ---
Date of Consultation November 12, 2020 Assessment & Plan (1) Palliative care encounter: 78 year old female patient who is known to the Palliative medicine service from previous admission in 2019 presented to the [facility] with worsening shortness of breath. She reported not feeling well over the past 3-4 days and that she has been coughing up green colored sputum. She was tested for COVID and this came back positive. She has not been vaccinated. She has CKD stage 5 and used to get her volume and pressures managed through dialysis, but she has been non- compliant and hemodialysis was discontinued. Despite covid pna treatment, she continues to require a large amount of oxygen support and she has become more encephalopathic. Additional PMH includes: CKD stage IV, HTN, DM, psoriasis, hypothyroidism, anemia, obesity, atrial fibrillation, cardiomyopathy with severely reduced systolic function with EF 25-30%, and others, Palliative Medicine was consulted to discuss goals of care. The patient opened her eyes and per nursing has talked throughout the day. She was not speaking to me when I went in the room, but did look at me. I talked with her daughter Radha and discussed her worsening progression, She agrees that she has been ill for along time and knows that she just is not strong enough to 'beat this'. She is supportive of a transition to comfort focused care. We will discontinue all medications, including the IV abx, and focus on comfort. Offered for family to have a zoom call, she will call the unit with a time that will work when the family can be together to see her again. Life expectancy likely days to a week or so. Pt has Morphine 1mg IV Q2 PRN for air hunger, will switch to Roxicodone 5 mg PO Q2 PRN due to renal failure. Adding Robinul 0.2 mg Q3 IV PRN for secretions Adding Ativan 0.5 mg IV Q4 PRN for agitation Patient was pulling off her HFNC when I was in the room. Once family has had opportunity to zoom, could transition to nasal canula. Would suggest pre medicating with morphine prior to taking the HFNC off to avoid air hunger. Palliative will follow. (2) COVID-19: (3) ESRD (end stage renal disease): (4) Metabolic encephalopathy: (5) Weakness: (6) Dysphagia: History of Present Illness Reason for Consultation: Goals of care Requesting Physician: Dr. Landry Attending Physician: Sukhi Barth DO History of Present Illness 78 year old female patient who is known to the Palliative medicine service from previous admission in 2019 presented to the [facility] with worsening shortness of breath. She reported not feeling well over the past 3-4 days and that she has been coughing up green colored sputum. She was tested for COVID and this came back positive. She has not been vaccinated. She has CKD stage 5 and used to get her volume and pressures managed through dialysis, but she has been non- compliant and hemodialysis was discontinued. Despite covid pna treatment, she continues to require a large amount of oxygen support and she has become more encephalopathic. Additional PMH includes: CKD stage IV, HTN, DM, psoriasis, hypothyroidism, anemia, obesity, atrial fibrillation, cardiomyopathy with severely reduced systolic function with EF 25-30%, and others, Palliative Medicine was consulted to discuss goals of care. Allergies Allergy/AdvReac Type Severity Reaction Status Date / Time doxycycline Allergy Unknown Hives Verified 11/09/20 09:48 labetalol Allergy Unknown tired and Verified 11/09/20 09:48 depressed lorazepam Allergy Unknown "SQUIRRELLY Verified 11/09/20 09:48 " Pork/Porcine Containing Allergy Unknown tired and Verified 11/09/20 09:48 Products depression tetracycline Allergy Unknown unknown(not Verified 11/09/20 09:48 100% sure if she's allergic to it) tramadol AdvReac Unknown dizzy, Verified 11/09/20 09:48 emesis Home Medications Medication Instructions Recorded Confirmed Type aspirin 81 mg PO DAILY 07/14/19 11/09/20 History betamethasone valerate 0.1 % 1 appln TOP BID #45 gm 08/09/19 11/09/20 Rx topical ointment lidocaine 1 patch TRANSDERMAL QAM #10 ea 02/18/20 11/09/20 Rx acetaminophen 325 mg tablet 650 mg PO Q6H PRN tab 03/05/20 11/09/20 History calcitriol 0.25 mcg capsule 0.25 mcg PO MOWEFR cap 03/06/20 11/09/20 History bumetanide 2 mg tablet 2 mg PO BID #180 tab 08/07/20 11/09/20 Rx amlodipine 5 mg tablet 5 mg PO DAILY 11/11/20 11/11/20 History apixaban 2.5 mg tablet 2.5 mg PO BID 11/11/20 11/11/20 History carvedilol 25 mg tablet 25 mg PO BID 11/11/20 11/11/20 History fluticasone furoate 200 1 inh INHALATION DAILY 11/11/20 11/11/20 History mcg-vilanterol 25 mcg/dose inhalation powder isosorbide mononitrate 30 mg 30 mg PO DAILY 11/11/20 11/11/20 History tablet,extended release 24 hr levothyroxine 200 mcg tablet 200 mcg PO DAILY 11/11/20 11/11/20 History sevelamer HCl 800 mg tablet 800 mg PO TID 11/11/20 11/11/20 History sodium bicarbonate 650 mg tablet 650 mg PO BID 11/11/20 11/11/20 History Patient History Medical History (Updated 11/12/20 @ 10:14 by GALO Hays) Accidental fall Anemia associated with chronic renal failure Asthma Atrial fibrillation Dx 02/2019. On Eliquis. Per Dr. Grimaldo 03/03/19 office note, suspect afib was present for a long time given significant biatrial dilatation. Cardiomyopathy Systolic CHF, EF 25-30% on echo 03/28/19 with global HK. Per cardiology consult 02/14/19, cannot exlude ischemic etiology, but may also be 2/2 prolonged tachycardia. Euvolemic on exam at PAT 09/07/19. Carotid artery stenosis without cerebral infarction < 50% bilateral carotid stenosis per 2018 imaging (*No imaging in our records but this was noted by PCP at 06/2019 office visit) Chronic kidney disease, stage 4 (severe) Cognitive impairment Daughter, Linda Dupotn, primary student support advisor Depression Diabetes diet controlled Dysphagia ESRD (end stage renal disease) on dialysis pt to do dialysis MWF in [place] but has been refusing to go and according to the daughter she has not been there for about the last 2 weeks. Hip pain, left Hypertension Hypertensive urgency Hyponatremia 2/2 SIADH Hypothyroidism Osteopenia Palliative care encounter Palliative care encounter Proteinuria Psoriasis Secondary hyperparathyroidism Secondary hyperparathyroidism of renal origin SIADH (syndrome of inappropriate ADH production) Stage 5 chronic kidney disease not on chronic dialysis Systolic CHF EF 25-30% per 03/2019 echo Weakness Surgical History H/O colonoscopy History of dilatation and curettage History of vascular access device RIGHT UPPER CHEST PERMACATH FOR DIALYSIS 04/01/19 S/P arteriovenous (AV) fistula creation Jul 2019 Family History Father Heart disease Mother Diabetes Heart disease Hypertension Daughter Breast cancer Brother Hypertension Grandmother (Maternal) Family hx of colon cancer Denies family history of Ovarian cancer Colorectal cancer Colonic polyp Social History Smoking Status: Never smoker Second Hand Exposure: No; Do You Dip or Chew Tobacco: No; Tobacco Cessation Education Requested by Patient: No Hx Alcohol Use: No Hx Substance Use: No Preferred Language: Finnish Communication Ability: Effective Tile Roofer Required: No Beliefs That Will Affect Care: None marital status: Single Current Living Situation: Alone current occupational status: retired current occupation: [email or web address] Other Information That Helps Us Care for You: No Feels Safe at Home: Yes Safety Concerns: Feels Safe At This Time Assistive Devices: Oxygen - Continuous Review of Systems Review of Systems: Unobtainable due to cognitive status [place] [facility] Assessment Scale: By physical assessment Pain: 1/3 Shortness of breath: 2/3 Tiredness: 1/3 Anxiety: 0/3 Palliative Performance: 20% Physical Exam Constitutional: + acute distress and + ill appearing ENMT: Nose: + dry nasal mucous membranes Respiratory: + uses accessory muscles Auscultation: + diminished lung sounds Cardiovascular: Rate/Rhythm: regular rate and regular rhythm Heart Sounds: normal S1 and normal S2 Gastrointestinal (Abdomen): normal bowel sounds, soft, nontender, no hepatosplenomegaly Skin: no rashes, warm and dry Psychiatric: Orientation: alert; + uncooperative Insight: + impaired insight Judgement: + impaired judgement Results & Data ([facility]) Vital Signs (Past 12 Hours) Vital Signs Temp Pulse Resp BP Pulse Ox 11/12/20 09:01 90 11/12/20 07:52 36.6 C 79 19 100/80 90 11/12/20 07:46 76 18 94 11/12/20 07:40 82 18 95 11/12/20 04:20 36.5 C 80 21 119/91 96 11/12/20 03:32 82 18 98 11/11/20 23:03 70 20 116/99 96 PG Care Time/CCT Total # of Minutes Spent Total Time Spent with Patient: Total time spent is greater than 50% in coordination of care (as documented) at patient's floor/unit and/or counseling patient: 70 minutes with > 50% of that time spent assessing the patient, discu ssing goals of care, providing symptom management and collaborating with IDT. Coding Level of Care Code 59273 Inpt Consult Level 3 Diagnoses Palliative care encounter Z51.5 COVID-19 U07.1 ESRD (end stage renal disease) N18.6 Metabolic encephalopathy G93.41 Weakness R53.1 Dysphagia R13.10 Time Spent (min) 70
[2020-11-12] MEDS ORDERED: LORazepam 0.5 MG/1 ML VIAL IV PRN (10:35)
[2020-11-12] MEDS ORDERED: LORazepam 0.5 MG TAB PO PRN (10:36)
[2020-11-12] MEDS ORDERED: MoRPHine SULFATE 2 MG/ML CARP IV PRN (10:36)
[2020-11-12] MEDS ORDERED: ONDANSETRON INJ 2 MG/ML 2 ML VIAL IV PRN (10:36)
[2020-11-12] MEDS ORDERED: ONDANSETRON 4 MG OD TAB SL PRN (10:36)
[2020-11-12] MEDS: cefTRIAXone SODIUM 1,000 MG in DEXTROSE 5% 50 ML IV SCH (10:50)
[2020-11-12] MEDS ORDERED: PATIROMER CALCIUM SORBITEX 8.4 GM PACK PO SCH (12:00)
--- NOTE | 2020-11-12 12:31 | Hospitalist Progress Note ---
Date of Service November 12, 2020 Assessment & Plan (1) COVID-19: With COVID-19 Pneumonia on CXR Approximately day 4-5 of her illness at time of admission. Due to her ESRD not candidate for Remdesevir Initially needed 4L then up to HFNC 45L, 80% FiO2 on AM of 11/11 and transferred to PCU Has some encephalopathy now as well, very poor appetite Also with development of hypothermia on evening of 11/10-she frequently refuses to have shreya hugger or warm blankets in place leukocytosis, elevated ESR and CRP palliative care consulted on 11/12, discussion with patient and with her family will elect to make patient comfort measures only all medications stopped except those for comfort - Ativan, Morphine, glycoyrrolate (2) Hypoxia: As above, secondary to COVID-19 PNA Could be some component for renal failure and CHF worsening condition over past 48 hours will now focus on comfort, stopped high flow (3) Acute metabolic encephalopathy: confused today, not agitated, poor appetite, spitting out medications certainly makes it more difficult to treat transition to PAINT PREPARER (4) Pneumonia: comfort measures (5) Hyperkalemia: secondary to renal failure patient does not want HD comfort measures (6) CHF (congestive heart failure): Chronic systolic CHF, EF 25-30%, some pulm edema perhaps on CXR but has very poor po intake, is net negative I/Os -all heart medications stopped, PAINT PREPARER (7) ESRD (end stage renal disease): As above, supportive care, was on HD in the past and was noncompliant, then stopped going, does not desire to have HD again - Avoid further nephrotoxic agents -HOLD calcitriol, sevelamer - PAINT PREPARER (8) Diabetes: Diet controlled at home (9) Secondary hyperparathyroidism: (10) Hyponatremia: (11) Hypothyroidism: (12) Anemia associated with chronic renal failure: (13) Metabolic acidosis: (14) DVT prophylaxis: stop Apixaban, PAINT PREPARER Admission and Anticipated Discharge Date Admission Date: November 09, 2020 Subjective patient more confused this morning, weak, spitting out medications palliative care called her family to discuss, they agree with comfort measures only all medications stopped except those aimed for comfort the patient states "I just wanna get out of here" explained that that is difficult with COVID status will arrange for Zoom call this evening with family Review of Systems Review of Systems: All systems reviewed & are unremarkable except as noted in Subjective Constitutional: + fatigue and + weakness Respiratory: + dyspnea and + dyspnea on exertion Physical Exam Constitutional: + ill appearing and + frail appearing; no acute distress Neck: trachea midline, no thyromegaly Respiratory: + cough and + tachypneic; no respiratory distress Auscultation: + diminished lung sounds Cardiovascular: RRR, no murmur, no edema Gastrointestinal (Abdomen): normal bowel sounds, soft, nontender, no hepatosplenomegaly Musculoskeletal: Head/Neck/Chest: normocephalic, head atraumatic and neck supple Extremities: + abnormal strength (generalized muscle weakness) Skin: no rashes, warm and dry Neurologic: normal touch/pain/proprioception, CN's II-XI intact bilaterally and awake; no focal motor deficits Psychiatric: Orientation: alert, oriented to person and cooperative; + not oriented to place and + not oriented to time Results & Data Results & Data ([facility]) Vital Signs (Past 12 Hours) Vital Signs Temp Pulse Pulse Resp BP Pulse Ox 11/12/20 10:56 79 11/12/20 10:45 83 20 92 11/12/20 09:01 90 11/12/20 07:52 36.6 C 79 19 100/80 90 11/12/20 07:46 76 18 94 11/12/20 07:40 82 18 95 11/12/20 04:20 36.5 C 80 21 119/91 96 11/12/20 03:32 82 18 98 Laboratory Results Laboratory Results - last 24 hr 11/11/20 11/11/20 11/12/20 16:29 20:10 05:36 WBC 18.83 H RBC 3.71 L Hgb 11.6 L Hct 34.0 L MCV 91.6 MCH 31.3 MCHC 34.1 RDW Std Deviation 59.8 H RDW Coeff of Calro 17.8 H Plt Count 156 MPV 12.6 H Immature Gran % (Auto) 0.4 Neut % (Auto) 96.2 Lymph % (Auto) 1.8 [place] % (Auto) 1.6 Eos % (Auto) 0.0 Baso % (Auto) 0.0 Neut # (Auto) 18.11 H Lymph # (Auto) 0.34 L [place] # (Auto) 0.30 Eos # (Auto) 0.00 Baso # (Auto) 0.00 Immature Gran # (Auto) 0.08 H Sodium Potassium Chloride Carbon Dioxide Anion Gap BUN Creatinine Est Cr Clr Drug Dosing Est GFR ( Amer) Est GFR (Non-Af Amer) BUN/Creatinine Ratio Glucose POC Glucose 195 H 173 H Calcium Magnesium C-Reactive Protein 11/12/20 11/12/20 05:36 07:54 WBC RBC Hgb Hct MCV MCH MCHC RDW Std Deviation RDW Coeff of Carlo Plt Count MPV Immature Gran % (Auto) Neut % (Auto) Lymph % (Auto) [place] % (Auto) Eos % (Auto) Baso % (Auto) Neut # (Auto) Lymph # (Auto) [place] # (Auto) Eos # (Auto) Baso # (Auto) Immature Gran # (Auto) Sodium 128 L Potassium 5.0 Chloride 93 L Carbon Dioxide 26 Anion Gap 10.0 BUN 72 H Creatinine 3.48 H Est Cr Clr Drug Dosing 12.0 Est GFR ( Amer) 13.8 Est GFR (Non-Af Amer) 11.9 BUN/Creatinine Ratio 20.7 H Glucose 186 H POC Glucose 175 H Calcium 6.9 L Magnesium 2.3 C-Reactive Protein 2.88 H Medications Administered Current Inpatient Medications Calcitriol (Calcitriol 0.25 Mcg Capsule) 0.25 mcg PO [id number] [facility] Stop: 12/09/20 14:45 Last Admin: 11/09/20 16:25 Dose: 0.25 mcg Documented by: Glycopyrrolate (Glycopyrrolate 0.2 Mg/Ml Vial) 0.2 mg IV Q3H PRN PRN Reason: secretions Stop: 12/12/20 10:34 Lorazepam (Ativan) 0.5 mg in 1 mls @ 1 mls/min IV Q4H PRN PRN Reason: Anxiety/Agitation Stop: 12/12/20 10:35 Morphine Sulfate (Morphine Sulfate 2 Mg/Ml Carp) 1 mg IV Q2H PRN PRN Reason: Pain or breathlessness Stop: 11/25/20 19:10 Last Admin: 11/12/20 11:38 Dose: 1 mg Documented by: Sevelamer HCl (Sevelamer Hcl 800 Mg Tablet) 800 mg PO TIDM [facility] Stop: 12/09/20 16:59 Last Admin: 11/11/20 17:41 Dose: Not Given Documented by: PG Care Time/CCT Total # of Minutes Spent Total Time Spent with Patient: Total time spent is greater than 50% in co ordination of care (as documented) at patient's floor/unit and/or counseling patient: Coding Level of Care Code 41417 Subseq Hosp Care Lvl 2 Diagnoses COVID-19 U07.1 Hypoxia R09.02 Acute metabolic encephalopathy G93.41 Pneumonia J18.9 Laterality: bilateral Lung location: unspecified part of lung Pneumonia type: due to unspecified organism Hyperkalemia E87.5 CHF (congestive heart failure) I50.9 Heart failure chronicity: acute on chronic Heart failure type: unspecified ESRD (end stage renal disease) N18.6 Diabetes E11.22; N18.5 Diabetes mellitus type: type 2 Diabetes mellitus middle or intermediate school principal insulin use: without middle or intermediate school principal use Diabetes mellitus complication status: with kidney complications Diabetes mellitus complication detail: with chronic kidney disease Chronic kidney disease stage: stage 5, not on chronic dialysis Secondary hyperparathyroidism N25.81 Hyponatremia E87.1 Hypothyroidism E03.9 Hypothyroidism type: acquired Anemia associated with chronic renal failure D63.1 Metabolic acidosis E87.2 DVT prophylaxis Z29.9 (1) Pneumonia Laterality: bilateral Lung location: unspecified part of lung Pneumonia type: due to unspecified organism Qualified Code(s): J18.9 - Pneumonia, unspecified organism (2) CHF (congestive heart failure) Heart failure chronicity: acute on chronic Heart failure type: unspecified Qualified Code(s): I50.9 - Heart failure, unspecified (3) Diabetes Diabetes mellitus type: type 2 Diabetes mellitus middle or intermediate school principal insulin use: without half-way use Diabetes mellitus complication status: with kidney co mplications Diabetes mellitus complication detail: with chronic kidney disease Chronic kidney disease stage: stage 5, not on chronic dialysis Qualified Code(s): E11.22 - Type 2 diabetes mellitus with diabetic chronic kidney disease; N18.5 - Chronic kidney disease, stage 5 (4) Hypothyroidism Hypothyroidism type: acquired Qualified Code(s): E03.9 - Hypothyroidism, unspecified
[2020-11-12] MEDS: LORazepam 0.5 MG/1 ML VIAL IV PRN (16:43)
--- NOTE | 2020-11-12 17:37 | Nephrology Progress Note ---
Date of Service November 12, 2020 Assessment & Plan (1) COVID-19: (2) CHF (congestive heart failure): (3) ESRD (end stage renal disease): Records reviewed. Plan of care discussed with staff. Therese has transitioned to comfort care. I have nothing additional to add. Please call with questions or concerns. Otherwise, nephrology will sign-off. (4) Hyponatremia: (5) Anemia associated with chronic renal failure: Admission and Anticipated Discharge Date Admission Date: November 09, 2020 Subjective Records reviewed. Patient not seen due to COVID. Noted transition to comfort care. Review of Systems Review of Systems: Unobtainable due to cognitive status Physical Exam Physical Exam: Deferred due to COVID Results & Data ([facility] [place]) Vital Signs (Past 12 Hours) Vital Signs Temp Pulse Pulse Resp BP Pulse Ox 11/12/20 10:56 79 11/12/20 10:45 83 20 92 11/12/20 09:01 90 11/12/20 07:52 36.6 C 79 19 100/80 90 11/12/20 07:46 76 18 94 11/12/20 07:40 82 18 95 PG Care Time/CCT Total # of Minutes Spent Total Time Spent with Patient: Total time spent is greater than 50% in coordination of care (as documented) at patient's floor/unit and/or counseling patient: Coding Level of Care Code None Diagnoses COVID-19 U07.1 CHF (congestive heart failure) I50.9 Heart failure chronicity: acute on chronic Heart failure type: unspecified ESRD (end stage renal disease) N18.6 Hyponatremia E87.1 Anemia associated with chronic renal failure D63.1 (1) CHF (congestive heart failure) Heart failure chronicity: acute on chronic Heart failure type: unspecified Qualified Code(s): I50.9 - Heart failure, unspecified
--- NOTE | 2020-11-13 10:39 | Hospitalist Progress Note ---
Date of Service November 13, 2020 Assessment & Plan (1) Palliative care encounter: patient resting comfortably, no needs I updated family, working on finding a solution for them to see patient difficult from infection control standpoint (2) COVID-19: With COVID-19 Pneumonia on CXR Approximately day 4-5 of her illness at time of admission. Due to her ESRD not candidate for Remdesevir Initially needed 4L then up to HFNC 45L, 80% FiO2 on AM of 11/11 and transferred to PCU Has some encephalopathy now as well, very poor appetite Also with development of hypothermia on evening of 11/10-she frequently refuses to have shreya hugger or warm blankets in place leukocytosis, elevated ESR and CRP palliative care consulted on 11/12, discussion with patient and with her family will elect to make patient comfort measures only all medications stopped except those for comfort - Ativan, Morphine, glycoyrrolate (3) Hypoxia: As above, secondary to COVID-19 PNA Could be some component for renal failure and CHF worsening condition over past 48 hours will now focus on comfort, stopped high flow (4) Acute metabolic encephalopathy: confused today, not agitated, poor appetite, spitting out medications certainly makes it more difficult to treat transition to PROJECT RESERVOIR ENGINEER (5) Pneumonia: comfort measures (6) Hyperkalemia: secondary to renal failure patient does not want HD comfort measures (7) CHF (congestive heart failure): Chronic systolic CHF, EF 25-30%, some pulm edema perhaps on CXR but has very poor po intake, is net negative I/Os -all heart medications stopped, PROJECT RESERVOIR ENGINEER (8) ESRD (end stage renal disease): As above, supportive care, was on HD in the past and was noncompliant, then stopped going, does not desire to have HD again - Avoid further nephrotoxic agents -HOLD calcitriol, sevelamer - PROJECT RESERVOIR ENGINEER (9) Diabetes: Diet controlled at home (10) Secondary hyperparathyroidism: No acute needs - Her daughter is unsure if she is still taking her Calcitriol and hasn't been filled - hold calcitriol (11) Hyponatremia: Acute on Chronic-secondary to chronic renal failure - Follow daily BMP (12) Hypothyroidism: TSH elevated at 10 on last check several months ago Check TSH here and down to 7, normal FT4 Continue home levothyroxine dose for now as may not have been compliant with it at home (13) Anemia associated with chronic renal failure: Hemoglobin stable to increased from previous at 11.3, mild thrombocytopenia likely secondary to Covid-19 infection is now improving Follow CBC (14) Metabolic acidosis: HCO3 down to 18, 2/2 renal failure, dehydration started HCO3 gtt follow BMP (15) DVT prophylaxis: stop Apixaban, PROJECT RESERVOIR ENGINEER Admission and Anticipated Discharge Date Admission Date: November 09, 2020 Subjective patient is sleeping comfortably, no distress at all tried to wake her with sternal rub and speaking her name but she would not open her eyes or respond I called her daughter Linda Dupont and explained the situation, trying to get her to private neg pressure room but no guarantee family would like to try to see her if possible Review of Systems Review of Systems: Unobtainable due to cognitive status (lethargic) Physical Exam Constitutional: + ill appearing and + frail appearing; no acute distress Neck: trachea midline, no thyromegaly Respiratory: normal respiratory effort; no labored breathing Auscultation: + diminished lung sounds Cardiovascular: RRR, no murmur, no edema Gastrointestinal (Abdomen): normal bowel sounds, soft, nontender, no hepatosplenomegaly Musculoskeletal: Head/Neck/Chest: normocephalic, head atraumatic and neck supple Extremities: + abnormal strength (generalized muscle weakness) Psychiatric: Orientation: + not alert, + not oriented to person, + not oriented to place and + not oriented to time Results & Data Results & Data ([facility]) Vital Signs (Past 12 Hours) Vital Signs Resp 11/13/20 07:55 16 Medications Administered Current Inpatient Medications Glycopyrrolate (Glycopyrrolate 0.2 Mg/Ml Vial) 0.2 mg IV Q3H PRN PRN Reason: secretions Stop: 12/12/20 10:34 Lorazepam (Ativan) 0.5 mg in 1 mls @ 1 mls/min IV Q4H PRN PRN Reason: Anxiety/Agitation Stop: 12/12/20 10:35 Last Admin: 11/12/20 16:43 Dose: 1 mls/min Documented by: Oxycodone HCl (Oxycodone Hcl Soln 5 Mg/5 Ml Udc) 5 mg PO Q2H PRN PRN Reason: Pain Stop: 11/26/20 14:18 PG Care Time/CCT Total # of Minutes Spent Total Time Spent: 20 Total Time Spent with Patient: Total time spent is greater than 50% in coordination of care (as documented) at patient's floor/unit and/or counseling patient: Coding Level of Care Code 15361 Subseq Hosp Care Lvl 2 Diagnoses Palliative care encounter Z51.5 COVID-19 U07.1 Hypoxia R09.02 Acute metabolic encephalopathy G93.41 Pneumonia J18.9 Laterality: bilateral Lung location: unspecified part of lung Pneumonia type: due to unspecified organism Hyperkalemia E87.5 CHF (congestive heart failure) I50.9 Heart failure chronicity: acute on chronic Heart failure type: unspecified ESRD (end stage renal disease) N18.6 Diabetes E11.22; N18.5 Diabetes mellitus type: type 2 Diabetes mellitus 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 car sales 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 insulin use: without used car sales supervisor use Diabetes mellitus complication status: with kidney complications Diabetes mellitus complication detail: with chronic kidney disease Chronic kidney disease stage: stage 5, not on chronic dialysis Secondary hyperparathyroidism N25.81 Hyponatremia E87.1 Hypothyroidism E03.9 Hypothyroidism type: acquired Anemia associated with chronic renal failure D63.1 Metabolic acidosis E87.2 DVT prophylaxis Z29.9 (1) Pneumonia Laterality: bilateral Lung location: unspecified part of lung Pneumonia type: due to unspecified organism Qualified Code(s): J18.9 - Pneumonia, unspecified organism (2) CHF (congestive heart failure) Heart failure chronicity: acute on chronic Heart failure type: unspecified Qualified Code(s): I50.9 - Heart failure, unspecified (3) Diabetes Diabetes mellitus type: type 2 Diabetes mellitus used car sales supervisor insulin use: without group home use Diabetes mellitus complication status: with kidney complications Diabetes mellitus complication detail: with chronic kidney disease Chronic kidney disease stage: stage 5, not on chronic dialysis Qualified Code(s): E11.22 - Type 2 diabetes mellitus with diabetic chronic kidney disease; N18.5 - Chronic kidney disease, stage 5 (4) Hypothyroidism Hypothyroidism type: acquired Qualified Code(s): E03.9 - Hypothyroidism, unspecified
--- NOTE | 2020-11-13 15:52 | Palliative Care Progress Note ---
Date of Service November 13, 2020 Assessment & Plan (1) Palliative care encounter: Will order IV hydromorphone for pain if she does not want to take po. She is currently not using any medications for pain or dyspnea. Monitor for now. Admission and Anticipated Discharge Date Admission Date: November 09, 2020 Subjective Per RN, she has been comfortable. No prn med use. She does refuse meds at times. Review of Systems Review of Systems: unable due to covid 19 isolation Physical Exam Physical Exam: deferred due to covid 19 isolation Results & Data ([facility]) Vital Signs (Past 12 Hours) Vital Signs Resp 11/13/20 12:04 20 11/13/20 07:55 16 PG Care Time/CCT Total # of Minutes Spent Total Time Spent with Patient: Total time spent is greater than 50% in coordination of care (as documented) at patient's floor/unit and/or counseling patient: Coding Level of Care Code 08766 Subseq Hosp Care Lvl 1 Diagnoses Palliative care encounter Z51.5
[2020-11-14] MEDS: HYDROmorphone INJ 0.5 MG/0.5 ML SYR IV PRN ×3 (08:01→18:10)
--- NOTE | 2020-11-14 10:11 | Hospitalist Progress Note ---
Date of Service November 14, 2020 Assessment & Plan (1) Palliative care encounter: patient resting comfortably, no needs she is requesting to go home today, she is much more alert and is calm not easy to send home on hospice, normally she lives alone, no family or care givers and family works will work with palliative care on solution but due to COVID status she will probably be here for a while (2) COVID-19: With COVID-19 Pneumonia on CXR Approximately day 4-5 of her illness at time of admission. Due to her ESRD not candidate for Remdesevir Initially needed 4L then up to HFNC 45L, 80% FiO2 on AM of 11/11 and transferred to PCU Had some encephalopathy, very poor appetite Also with development of hypothermia on evening of 11/10-she frequently refuses to have shreya hugger or warm blankets in place leukocytosis, elevated ESR and CRP palliative care consulted on 11/12, discussion with patient and with her family will elect to make patient comfort measures only all medications stopped except those for comfort - Ativan, Morphine, glycoyrrolate patient is stable on 4L, saturations 90%, no distress, surprised she has not declined further will try to get her to private room, neg pressure (3) Hypoxia: As above, secondary to COVID-19 PNA Could be some component for renal failure and CHF stable on 4L after requiring high flow on 11/11 (4) Acute metabolic encephalopathy: better today, alert and requesting to just go home will try to facilitate her wishes but lots of obstacles (5) Pneumonia: comfort measures (6) Hyperkalemia: secondary to renal failure patient does not want HD no labs for several days, unsure of K level (7) CHF (congestive heart failure): Chronic systolic CHF, EF 25-30%, some pulm edema perhaps on CXR but has very poor po intake, is net negative I/Os -all heart medications stopped, DRIVER 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 (8) ESRD (end stage renal disease): As above, supportive care, was on HD in the past and was noncompliant, then stopped going, does not desire to have HD again - Avoid further nephrotoxic agents -HOLD calcitriol, sevelamer - DRIVER 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 (9) Diabetes: Diet controlled at home (10) Secondary hyperparathyroidism: No acute needs - Her daughter is unsure if she is still taking her Calcitriol and hasn't been filled - hold calcitriol (11) Hyponatremia: Acute on Chronic-secondary to chronic renal failure no further labs (12) Hypothyroidism: TSH elevated at 10 on last check several months ago Check TSH here and down to 7, normal FT4 not on Synthroid, DRIVER 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 (13) Anemia associated with chronic renal failure: no further labs (14) Metabolic acidosis: HCO3 down to 18, 2/2 renal failure, dehydration no further labs (15) DVT prophylaxis: stop Apixaban, DRIVER 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 Admission and Anticipated Discharge Date Admission Date: November 09, 2020 Subjective patient more responsive today, says she feels good on 4L NC, no distress says she is ready to go home, just wants to see her family I called her daughter Linda Dupont, probably not realistic for her to go home with reyes jarvis the patient lives alone in an apartment normally all the children work so they would be needing home care givers, discussed that they are private pay plus the patient has COVID she mentioned [facility], I told her that right now the patient is COVID + so would not be able to go there will work on getting her to private neg pressure room updated palliative care Review of Systems Review of Systems: All systems reviewed & are unremarkable except as noted in Subjective Respiratory: + cough and + dyspnea Physical Exam Constitutional: + ill appearing and + frail appearing; no acute distress ENMT: Throat: + postnasal drainage (rattling in throat) Neck: trachea midline, no thyromegaly Respiratory: normal respiratory effort; no labored breathing Auscultation: + diminished lung sounds, + rales and + bronchial breath sounds; no wheezes Cardiovascular: RRR, no murmur, no edema Gastrointestinal (Abdomen): normal bowel sounds, soft, nontender, no hepatosplenomegaly Musculoskeletal: Head/Neck/Chest: normocephalic, head atraumatic and neck supple Extremities: + abnormal strength (generalized muscle weakness) Skin: no rashes, warm and dry Neurologic: awake Psychiatric: Orientation: alert, oriented to person, oriented to place and cooperative; + not oriented to time Results & Data Results & Data ([place]) Medications Administered Current Inpatient Medications Glycopyrrolate (Glycopyrrolate 0.2 Mg/Ml Vial) 0.2 mg IV Q3H PRN PRN Reason: secretions Stop: 12/12/20 10:34 Hydromorphone HCl (Hydromorphone Inj 0.5 Mg/0.5 Ml Syr) 0.25 mg IV Q1H PRN PRN Reason: Severe shortness of breath Stop: 11/27/20 15:36 Last Admin: 11/14/20 08:01 Dose: 0.25 mg Documented by: Lorazepam (Ativan) 0.5 mg in 1 mls @ 1 mls/min IV Q4H PRN PRN Reason: Anxiety/Agitation Stop: 12/12/20 10:35 Last Admin: 11/12/20 16:43 Dose: 1 mls/min Documented by: Oxycodone HCl (Oxycodone Hcl Soln 5 Mg/5 Ml Udc) 5 mg PO Q2H PRN PRN Reason: Pain Stop: 11/26/20 14:18 PG Care Time/CCT Total # of Minutes Spent Total Time Spent with Patient: Total time spent is greater than 50% in coordination of care (as documented) at patient's floor/unit and/or counseling patient: Coding Level of Care Code 94932 Subseq Hosp Care Lvl 2 Diagnoses Palliative care encounter Z51.5 COVID-19 U07.1 Hypoxia R09.02 Acute metabolic encephalopathy G93.41 Pneumonia J18.9 Laterality: bilateral Lung location: unspecified part of lung Pneumonia type: due to unspecified organism Hyperkalemia E87.5 CHF (congestive heart failure) I50.9 Heart failure chronicity: acute on chronic Heart failure type: unspecified ESRD (end stage renal disease) N18.6 Diabetes E11.22; N18.5 Diabetes mellitus type: type 2 Diabetes mellitus terminal operator insulin use: without correction use Diabetes mellitus complication status: with kidney complications Diabetes mellitus complication detail: with chronic kidney disease Chronic kidney disease stage: stage 5, not on chronic dialysis Secondary hyperparathyroidism N25.81 Hyponatremia E87.1 Hypothyroidism E03.9 Hypothyroidism type: acquired Anemia associated with chronic renal failure D63.1 Metabolic acidosis E87.2 DVT prophylaxis Z29.9 (1) Pneumonia Laterality: bilateral Lung location: unspecified part of lung Pneumonia type: due to unspecified organism Qualified Code(s): J18.9 - Pneumonia, unspecified organism (2) CHF (congestive heart failure) Heart failure chronicity: acute on chronic Heart failure type: unspecified Qualified Code(s): I50.9 - Heart failure, unspecified (3) Diabetes Diabetes mellitus type: type 2 Diabetes mellitus terminal operator insulin use: without terminal operator use Diabetes mellitus complication status: with kidney co mplications Diabetes mellitus complication detail: with chronic kidney disease Chronic kidney disease stage: stage 5, not on chronic dialysis Qualified Code(s): E11.22 - Type 2 diabetes mellitus with diabetic chronic kidney disease; N18.5 - Chronic kidney disease, stage 5 (4) Hypothyroidism Hypothyroidism type: acquired Qualified Code(s): E03.9 - Hypothyroidism, unspecified
[2020-11-14] MEDS: SCOPOLAMINE 1 MG TDSY TD SCH (14:23)
[2020-11-14] MEDS: CHECK SCOPOLAMINE PATCH PLACEMENT SCH ×2 (15:48→23:57)
[2020-11-14] MEDS: LORazepam 0.5 MG/1 ML VIAL IV PRN (22:12)
[2020-11-15] MEDS: GLYCOPYRROLATE 0.2 MG/ML VIAL IV PRN ×3 (08:39→23:03)
[2020-11-15] MEDS: CHECK SCOPOLAMINE PATCH PLACEMENT SCH ×2 (08:39→16:05)
--- NOTE | 2020-11-15 10:30 | Palliative Care Progress Note ---
Date of Service November 15, 2020 Assessment & Plan (1) Palliative care encounter: Pt is more interactive than the past few days. She is currently not using any medications for pain or dyspnea. Ultimately she is off of HFNC and tolerating 3LNC well. She does keep saying she 'wants to go home'. Ultimately this has been discussed with family regarding returning home with hospice support. She would require 24/7 care and family, at this time, is unable to provide this. I did reach out to [facility] to confirm their ability to accept COVID + patients. Their current policy is that the pt has to be 14 days post positive test and airborne isolation needs to be removed. I discussed above with case management who will look into a few other local SNF that may be able to accept current active COVID patients. Patient would be able to be removed from airborne isolation on 11/21 based on positive test date. It may be difficult to source private caregivers for an active positive patient and if unable to place, will have to stay here until 11/21. Palliative to follow for any symptom management needs. Case management to work on discharge planning. Admission and Anticipated Discharge Date Admission Date: November 09, 2020 Subjective Pt has been more awake. She does keep saying she wants to go home intermittently refuses medications, even related to comfort Day #8 of COVID isolation See A/P for further details Review of Systems Review of Systems: [place] [facility] Assessment Scale: Pain: 0/3 Tiredness: 0/3 Anxiety: 0/3 Shortness of breath: 1/3 PPS: 20% Physical Exam Constitutional: + ill appearing ENMT: Nose: + dry nasal mucous membranes Respiratory: + cough Auscultation: + diminished lung sounds Cardiovascular: Rate/Rhythm: regular rate and regular rhythm Heart Sounds: normal S1 and normal S2 Gastrointestinal (Abdomen): normal bowel sounds, soft, nontender, no hepatosplenomegaly Skin: no rashes, warm and dry Psychiatric: Orientation: alert; + uncooperative Insight: + impaired insight Judgement: + impaired judgement PG Care Time/CCT Total # of Minutes Spent Total Time Spent with Patient: Total time spent is greater than 50% in co ordination of care (as documented) at patient's floor/unit and/or counseling patient:35 minutes with > 50% of that time spent assessing the patient, discussing goals of care with IDT and evaluation of symptom mangaement. Coding Level of Care Code 85456 Subseq Hosp Care Lvl 3 Diagnoses Palliative care encounter Z51.5 Time Spent (min) 35
--- NOTE | 2020-11-15 16:30 | Hospitalist Progress Note ---
Date of Service November 15, 2020 Assessment & Plan (1) Palliative care encounter: patient resting comfortably, no needs she is requesting to go home, unfortunately there are no good options right now for 26/01 care cannot go to [facility] right now due to COVID, earliest would be 11/21/20 ormally she lives alone, no family or care givers and family works no dyspnea or distress today, RR is normal main issue is copious secretions and difficulty protecting airway, weak cough using glycopyrrolate, Scopolamine patch to try to help will eat and drink very little and every time she tries it makes cough worse (2) COVID-19: With COVID-19 Pneumonia on CXR Approximately day 4-5 of her illness at time of admission. Due to her ESRD not candidate for Remdesevir Initially needed 4L then up to HFNC 45L, 80% FiO2 on AM of 11/11 and transferred to PCU Had some encephalopathy, very poor appetite Also with development of hypothermia on evening of 11/10-she frequently refuses to have shreya hugger or warm blankets in place leukocytosis, elevated ESR and CRP palliative care consulted on 11/12, discussion with patient and with her family will elect to make patient comfort measures only all medications stopped except those for comfort - Ativan, Morphine, glyco yrrolate patient is stable on 6L, saturations 90%, no distress, surprised she has not declined further moved her to private room, neg pressure (3) Hypoxia: As above, secondary to COVID-19 PNA Could be some component for renal failure and CHF stable on 4L after requiring high flow on 11/11 (4) Acute metabolic encephalopathy: better today, alert and requesting to just go home will try to facilitate her wishes but lots of obstacles (5) Pneumonia: comfort measures (6) Hyperkalemia: secondary to renal failure patient does not want HD no labs for several days, unsure of K level (7) CHF (congestive heart failure): Chronic systolic CHF, EF 25-30%, some pulm edema perhaps on CXR but has very poor po intake, is net negative I/Os -all heart medications stopped, 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 (8) ESRD (end stage renal disease): As above, supportive care, was on HD in the past and was noncompliant, then stopped going, does not desire to have HD again - Avoid further nephrotoxic agents -HOLD calcitriol, sevelamer - 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 (9) Diabetes: Diet controlled at home (10) Secondary hyperparathyroidism: No acute needs - Her daughter is unsure if she is still taking her Calcitriol and hasn't been filled - hold calcitriol (11) Hyponatremia: Acute on Chronic-secondary to chronic renal failure no further labs (12) Hypothyroidism: TSH elevated at 10 on last check several months ago Check TSH here and down to 7, normal FT4 not on Synthroid, 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 (13) Anemia associated with chronic renal failure: no further labs (14) Metabolic acidosis: HCO3 down to 18, 2/2 renal failure, dehydration no further labs (15) DVT prophylaxis: stop Apixaban, 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 Admission and Anticipated Discharge Date Admission Date: November 09, 2020 Subjective patient comfortable today on 6L, lots of secretions in the back of the throat very weak cough, difficulty clearing anything that gets into the airway no labs, no medications other than comfort all patient wants is to go home, but right now family cannot provide 24/7 care at home for hospice palliative care looked into [facility], they cannot take until after 11/21/20 due to COVID isolation needs no great options right now other than to stay at [facility] appreciate note from Palliative, spoke with Ceci Suarez today Review of Systems Review of Systems: All systems reviewed & are unremarkable except as noted in Subjective Constitutional: + fatigue and + weakness; no fever Respiratory: + cough, + chest congestion and + dyspnea; no pain with cough and no sputum production Cardiovascular: no chest pain and no edema Gastrointestinal: no abdominal pain, no nausea, no vomiting, no constipation and no diarrhea/loose stools Physical Exam Constitutional: + ill appearing and + frail appearing; no acute distress ENMT: Throat: + postnasal drainage (rattling in throat) Neck: trachea midline, no thyromegaly Respiratory: normal respiratory effort; no labored breathing Auscultation: + diminished lung sounds, + rales and + bronchial breath sounds; no wheezes Cardiovascular: RRR, no murmur, no edema Gastrointestinal (Abdomen): normal bowel sounds, soft, nontender, no hepatosplenomegaly Musculoskeletal: Head/Neck/Chest: normocephalic, head atraumatic and neck supple Extremities: + abnormal strength (generalized muscle weakness) Skin: no rashes, warm and dry Neurologic: awake Psychiatric: Orientation: alert, oriented to person, oriented to place and cooperative; + not oriented to time Results & Data Results & Data ([facility]) Medications Administered Current Inpatient Medications Glycopyrrolate (Glycopyrrolate 0.2 Mg/Ml Vial) 0.2 mg IV Q3H PRN PRN Reason: secretions Stop: 12/12/20 10:34 Last Admin: 11/15/20 08:39 Dose: 0.2 mg Documented by: Hydromorphone HCl (Hydromorphone Inj 0.5 Mg/0.5 Ml Syr) 0.25 mg IV Q1H PRN PRN Reason: Severe shortness of breath Stop: 11/27/20 15:36 Last Admin: 11/14/20 18:10 Dose: 0.25 mg Documented by: Lorazepam (Ativan) 0.5 mg in 1 mls @ 1 mls/min IV Q4H PRN PRN Reason: Anxiety/Agitation Stop: 12/12/20 10:35 Last Admin: 11/14/20 22:12 Dose: 1 mls/min Documented by: Miscellaneous (Check Scopolamine Patch Placement) 1 ea N/A QS DIONI Stop: 12/14/20 15:59 Last Admin: 11/15/20 16:05 Dose: 1 ea Documented by: Miscellaneous (Remove Transderm-Scop Patch) 1 ea N/A Q72H DIONI Stop: 12/14/20 13:58 Last Admin: 11/14/20 14:24 Dose: Not Given Documented by: Oxycodone HCl (Oxycodone Hcl Soln 5 Mg/5 Ml Udc) 5 mg PO Q2H PRN PRN Reason: Pain Stop: 11/26/20 14:18 Scopolamine (Scopolamine 1 Mg Tdsy) 1 mg TD Q72H DIONI Stop: 12/14/20 13:59 Last Admin: 11/14/20 14:23 Dose: 1 mg Documented by: PG Care Time/CCT Total # of Minutes Spent Total Time Spent with Patient: Total time spent is greater than 50% in coordination of care (as documented) at patient's floor/unit and/or counseling patient: Coding Level of Care Code 50142 Subseq Hosp Care Lvl 2 Diagnoses Palliative care encounter Z51.5 COVID-19 U07.1 Hypoxia R09.02 Acute metabolic encephalopathy G93.41 Pneumonia J18.9 Laterality: bilateral Lung location: unspecified part of lung Pneumonia type: due to unspecified organism Hyperkalemia E87.5 CHF (congestive heart failure) I50.9 Heart failure chronicity: acute on chronic Heart failure type: unspecified ESRD (end stage renal disease) N18.6 Diabetes E11.22; N18.5 Diabetes mellitus type: type 2 Diabetes mellitus watermelon harvesting 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 insulin use: without correction use Diabetes mellitus complication status: with kidney complications Diabetes mellitus complication detail: with chronic kidney disease Chronic kidney disease stage: stage 5, not on chronic dialysis Secondary hyperparathyroidism N25.81 Hyponatremia E87.1 Hypothyroidism E03.9 Hypothyroidism type: acquired Anemia associated with chronic renal failure D63.1 Metabolic acidosis E87.2 DVT prophylaxis Z29.9 (1) Pneumonia Laterality: bilateral Lung location: unspecified part of lung Pneumonia type: due to unspecified organism Qualified Code(s): J18.9 - Pneumonia, unspecified organism (2) CHF (congestive heart failure) Heart failure chronicity: acute on chronic Heart failure type: unspecified Qualified Code(s): I50.9 - Heart failure, unspecified (3) Diabetes Diabetes mellitus type: type 2 Diabetes mellitus correction insulin use: without correction use Diabetes mellitus complication status: with kidney complications Diabetes mellitus complication detail: with chronic kidney disease Chronic kidney disease stage: stage 5, not on chronic dialysis Qualified Code(s): E11.22 - Type 2 diabetes mellitus with diabetic chronic kidney disease; N18.5 - Chronic kidney disease, stage 5 (4) Hypothyroidism Hypothyroidism type: acquired Qualified Code(s): E03.9 - Hypothyroidism, unspecified
[2020-11-16] MEDS: CHECK SCOPOLAMINE PATCH PLACEMENT SCH ×4 (00:01→23:47)
[2020-11-16] MEDS: oxyCODONE HCL SOLN 5 MG/5 ML UDC PO PRN (01:30)
--- NOTE | 2020-11-16 12:59 | Hospitalist Progress Note ---
Date of Service November 16, 2020 Assessment & Plan (1) Palliative care encounter: patient resting comfortably, no needs she is requesting to go home, unfortunately there are no good options right now for 26/01 care cannot go to [facility] right now due to COVID, earliest would be 11/21/20 normally she lives alone, no family or care givers and family works no dyspnea or distress today, RR is normal main issue is copious secretions and difficulty protecting airway, weak cough using glycopyrrolate, Scopolamine patch to try to help will eat and drink very little and every time she tries it makes cough worse will call her daughter Linda Dupont to provide an update the below notes are prior to changing to comfort care (2) COVID-19: With COVID-19 Pneumonia on CXR Approximately day 4-5 of her illness at time of admission. Due to her ESRD not candidate for Remdesevir Initially needed 4L then up to HFNC 45L, 80% FiO2 on AM of 11/11 and transferred to PCU Had some encephalopathy, very poor appetite Also with development of hypothermia on evening of 11/10-she frequently refuses to have shreya hugger or warm blankets in place leukocytosis, elevated ESR and CRP palliative care consulted on 11/12, discussion with patient and with her family will elect to make patient comfort measures only all medications stopped except those for comfort - Ativan, Morphine, glycoyrrolate patient is stable on 6L, saturations 90%, no distress, surprised she has not declined further moved her to private room, neg pressure (3) Hypoxia: As above, secondary to COVID-19 PNA Could be some component for renal failure and CHF stable on 4L after requiring high flow on 11/11 (4) Acute metabolic encephalopathy: better today, alert and requesting to just go home will try to facilitate her wishes but lots of obstacles (5) Pneumonia: comfort measures (6) Hyperkalemia: secondary to renal failure patient does not want HD no labs for several days, unsure of K level (7) CHF (congestive heart failure): Chronic systolic CHF, EF 25-30%, some pulm edema perhaps on CXR but has very poor po intake, is net negative I/Os -all heart medications stopped, CALL CENTER AGENT (8) ESRD (end stage renal disease): As above, supportive care, was on HD in the past and was noncompliant, then stopped going, does not desire to have HD again - Avoid further nephrotoxic agents -HOLD calcitriol, sevelamer - CALL CENTER AGENT (9) Diabetes: Diet controlled at home (10) Secondary hyperparathyroidism: No acute needs - Her daughter is unsure if she is still taking her Calcitriol and hasn't been filled - hold calcitriol (11) Hyponatremia: Acute on Chronic-secondary to chronic renal failure no further labs (12) Hypothyroidism: TSH elevated at 10 on last check several months ago Check TSH here and down to 7, normal FT4 not on Synthroid, CALL CENTER AGENT (13) Anemia associated with chronic renal failure: no further labs (14) Metabolic acidosis: HCO3 down to 18, 2/2 renal failure, dehydration no further labs (15) DVT prophylaxis: stop Apixaban, CALL CENTER AGENT Admission and Anticipated Discharge Date Admission Date: November 09, 2020 Subjective patient is sleeping soundly this morning, woke up and said she was okay but then drifted back to sleep no major events, just sleeping a lot coughing, throat rattles if she drinks anything stable on 6L, no pain or distress Review of Systems Review of Systems: All systems reviewed & are unremarkable except as noted in Subjective Physical Exam Constitutional: + frail appearing; no acute distress ENMT: Throat: + postnasal drainage (rattling in throat) Neck: trachea midline, no thyromegaly Respiratory: normal respiratory effort; no labored breathing Auscultation: + diminished lung sounds, + rales and + bronchial breath sounds; no wheezes Cardiovascular: RRR, no murmur, no edema Gastrointestinal (Abdomen): normal bowel sounds, soft, nontender, no hepatosplenomegaly Musculoskeletal: Head/Neck/Chest: normocephalic, head atraumatic and neck sup ple Extremities: + abnormal strength (generalized muscle weakness) Skin: no rashes, warm and dry Neurologic: awake Psychiatric: Orientation: alert, oriented to person, oriented to place and cooperative; + not oriented to time Results & Data Results & Data ([place]) Medications Administered Current Inpatient Medications Glycopyrrolate (Glycopyrrolate 0.2 Mg/Ml Vial) 0.2 mg IV Q3H PRN PRN Reason: secretions Stop: 12/12/20 10:34 Last Admin: 11/15/20 23:03 Dose: 0.2 mg Documented by: Hydromorphone HCl (Hydromorphone Inj 0.5 Mg/0.5 Ml Syr) 0.25 mg IV Q1H PRN PRN Reason: Severe shortness of breath Stop: 11/27/20 15:36 Last Admin: 11/14/20 18:10 Dose: 0.25 mg Documented by: Lorazepam (Ativan) 0.5 mg in 1 mls @ 1 mls/min IV Q4H PRN PRN Reason: Anxiety/Agitation Stop: 12/12/20 10:35 Last Admin: 11/14/20 22:12 Dose: 1 mls/min Documented by: Miscellaneous (Check Scopolamine Patch Placement) 1 ea N/A QS DIONI Stop: 12/14/20 15:59 Last Admin: 11/16/20 08:32 Dose: 1 ea Documented by: Miscellaneous (Remove Transderm-Scop Patch) 1 ea N/A Q72H DIONI Stop: 12/14/20 13:58 Last Admin: 11/14/20 14:24 Dose: Not Given Documented by: Oxycodone HCl (Oxycodone Hcl Soln 5 Mg/5 Ml Udc) 5 mg PO Q2H PRN PRN Reason: Pain Stop: 11/26/20 14:18 Last Admin: 11/16/20 01:30 Dose: 5 mg Documented by: Scopolamine (Scopolamine 1 Mg Tdsy) 1 mg TD Q72H DIONI Stop: 12/14/20 13:59 Last Admin: 11/14/20 14:23 Dose: 1 mg Documented by: PG Care Time/CCT Total # of Minutes Spent Total Time Spent with Patient: Total time spent is greater than 50% in coordination of care (as documented) at patient's floor/unit and/or counseling patient: Coding Level of Care Code 54222 Subseq Hosp Care Lvl 1 Diagnoses Palliative care encounter Z51.5 COVID-19 U07.1 Hypoxia R09.02 Acute metabolic encephalopathy G93.41 Pneumonia J18.9 Laterality: bilateral Lung location: unspecified part of lung Pneumonia type: due to unspecified organism Hyperkalemia E87.5 CHF (congestive heart failure) I50.9 Heart failure chronicity: acute on chronic Heart failure type: unspecified ESRD (end stage renal disease) N18.6 Diabetes E11.22; N18.5 Chronic kidney disease stage: stage 5, not on chronic dialysis Diabetes mellitus complication detail: with chronic kidney disease Diabetes mellitus complication status: with kidney complications Diabetes mellitus group home insulin use: without terminal worker use Diabetes mellitus type: type 2 Secondary hyperparathyroidism N25.81 Hyponatremia E87.1 Hypothyroidism E03.9 Hypothyroidism type: acquired Anemia associated with chronic renal failure D63.1 Metabolic acidosis E87.2 DVT prophylaxis Z29.9 (1) Diabetes Chronic kidney disease stage: stage 5, not on chronic dialysis Diabetes mellitus complication detail: with chronic kidney disease Diabetes mellitus complication status: with kidney complications Diabetes mellitus group home insulin use: without terminal worker use Diabetes mellitus type: type 2 Qualified Code(s): E11.22 - Type 2 diabetes mellitus with diabetic chronic kidney disease; N18.5 - Chronic kidney disease, stage 5 (2) CHF (congestive heart failure) Heart failure chronicity: acute on chronic Heart failure type: unspecified Qualified Code(s): I50.9 - Heart failure, unspecified (3) Hypothyroidism Hypothyroidism type: acquired Qualified Code(s): E03.9 - Hypothyroidism, unspecified (4) Pneumonia Laterality: bilateral Lung location: unspecified part of lung Pneumonia type: due to unspecified organism Qualified Code(s): J18.9 - Pneumonia, unspecified organism
[2020-11-17] MEDS: CHECK SCOPOLAMINE PATCH PLACEMENT SCH ×3 (08:58→23:47)
[2020-11-17] MEDS: SCOPOLAMINE 1 MG TDSY TD SCH (14:35)
[2020-11-17] MEDS ORDERED: BUMETANIDE 2 MG in SYRINGE 0 ML IV ONE (18:15)
[2020-11-17] MEDS: BENZONATATE 100 MG CAPSULE PO SCH (19:47)
--- NOTE | 2020-11-17 19:49 | Hospitalist Progress Note ---
Date of Service November 17, 2020 Assessment & Plan (1) Acute respiratory failure with hypoxia: 2nd to COVID-19 pneumonia and probable acute/chronic systolic CHF. Requiring 6 L NC O2 to maintain comfort. Focus on cough/dyspnea as these are persistent symptoms. Thus, schedule tessalon 100mg TID. Hycodan prn. Bumex 2mg IV x 1. (2) Pneumonia due to COVID-19 virus: Admitted approximately 4-5 days into her illness course. Was treated with IV steroids; Remdesevir was deferred due to CKD. Initially needed NC O2 4L then O2 requirements escalated quickly to HFNC AM of 11/11. Required transfer to PCU on 11/11. Palliative care consulted on 11/12; patient/family opted for comfort measures. Transitioned to comfort care pathway at that time. Main issues are that of cough/dyspnea - see above. (3) Palliative care encounter: Bumex x 1 with hope that gentle diuresis leads to less cough & dyspnea. Schedule tessalon pearles. Hycodan prn. Consider bronchodilators. Cont glycopyrrolate and Scopolamine patch to try to help with secretions. Cont NC O2 for comfort. All unnecessary meds stopped. dispo - [facility] w/ hospice once she meets criteria for coming out of isolation?? (4) Acute metabolic encephalopathy: Suspect was due to hypoxia, COVID itself, etc. a/o x 3 today but demonstrates limited insight into the severity of her illness and limited insight on why going home is not prudent (lives alone). (5) Hyperkalemia: secondary to acute renal failure last level was 5 on 11/12/20 no labs for several days; K level could be worse but she is now comfort care measures only (6) CHF (congestive heart failure): acute/chronic systolic CHF. EF 25-30%. likely ongoing decompensation - bumex 2mg IV x 1 - this may help dyspnea/cough. (7) ESRD (end stage renal disease): CKD stage 5/ESRD. No desire for HD. (had been on HD in past - then was noncompliant and it was stopped). Comfort care. (8) Diabetes: stop any BSG checks, etc. (9) Secondary hyperparathyroidism: no Rx (10) Hyponatremia: Acute on Chronic 2nd CKD stop further lab checks (11) Hypothyroidism: no Rx (12) Anemia associated with chronic renal failure: no further lab checks (13) Metabolic acidosis: 2nd ESRD no Rx needed -- comfort care measures only (14) Dysphagia: can allow "permissive aspiration" given her comfort care status appetite is quite poor however (15) DVT prophylaxis: stopped Apixaban will contact Radha Mckeon at # listed in chair to give update Admission and Anticipated Discharge Date Admission Date: November 09, 2020 Subjective patient stating over and over "I want to go home" -- "I can recover at home and take care of myself" during the entire visit she had a severe, bronchial cough she was mildly dyspneic during her coughing fits no chest pain or abd pain when I told her she can't be alone because she is too weak from COVID she simply argues more about the issue Review of Systems Constitutional: + fatigue and + anorexia barely eating per staff; bites/sips; coughs w/ drinking Respiratory: + cough, + dyspnea and + wheezing Cardiovascular: no chest pain Gastrointestinal: no abdominal pain Physical Exam Constitutional: + acute distress (severe coughing) and + altered mental status (oddly she is oriented but has no insight into her illness or situation) ENMT: Mouth: + dry oral mucous membranes Respiratory: + respiratory distress, + cough and + tachypneic Auscultation: + crackles (extensive b/l, R>L) and + wheezes (b/l, R>L ) Cardiovascular: Rate/Rhythm: + irregularly irregular Heart Sounds: normal S1 and normal S2; no murmur Vessels: + JVD, posterior tibial pulses present and dorsalis pedis pulses present Extremities: + edema (<1+ b/l ) Gastrointestinal (Abdomen): normal bowel sounds, soft, nontender, no hepatosplenomegaly Psychiatric: Orientation: alert, oriented to person and oriented to place Results & Data Results & Data ([facility]) Vital Signs (Past 12 Hours) O2 sats mid-90s on 6 L NC O@ BP 133/94 RR mid 20s temp 36 PG Care Time/CCT Total # of Minutes Spent Total Time Spent with Patient: Total time spent is greater than 50% in coordination of care (as documented) at patient's floor/unit and/or counseling patient: Coding Level of Care Code 92209 Subseq Hosp Care Lvl 2 Diagnoses Acute respiratory failure with hypoxia J96.01 Pneumonia due to COVID-19 virus U07.1; J12.82 Palliative care encounter Z51.5 Acute metabolic encephalopathy G93.41 Hyperkalemia E87.5 CHF (congestive heart failure) I50.9 Heart failure chronicity: acute on chronic Heart failure type: unspecified ESRD (end stage renal disease) N18.6 Diabetes E11.22; N18.5 Chronic kidney disease stage: stage 5, not on chronic dialysis Diabetes mellitus complication detail: with chronic kidney disease Diabetes mellitus complication status: with kidney complications Diabetes mellitus intermodal dispatcher insulin use: without half-way use Diabetes mellitus type: type 2 Secondary hyperparathyroidism N25.81 Hyponatremia E87.1 Hypothyroidism E03.9 Hypothyroidism type: acquired Anemia associated with chronic renal failure D63.1 Metabolic acidosis E87.2 Dysphagia R13.10 DVT prophylaxis Z29.9 (1) Diabetes Chronic kidney disease stage: stage 5, not on chronic dialysis Diabetes mellitus complication detail: with chronic kidney disease Diabetes mellitus complication status: with kidney complications Diabetes mellitus half-way insulin use: without intermodal dispatcher use Diabetes mellitus type: type 2 Qualified Code(s): E11.22 - Type 2 diabetes mellitus with diabetic chronic kidney disease; N18.5 - Chronic kidney disease, stage 5 (2) CHF (congestive heart failure) Heart failure chronicity: acute on chronic Heart failure type: unspecified Qualified Code(s): I50.9 - Heart failure, unspecified (3) Hypothyroidism Hypothyroidism type: acquired Qualified Code(s): E03.9 - Hypothyroidism, unspecified
[2020-11-17] MEDS: oxyCODONE HCL SOLN 5 MG/5 ML UDC PO PRN (19:52)
[2020-11-18] MEDS: CHECK SCOPOLAMINE PATCH PLACEMENT SCH ×2 (07:43→15:59)
[2020-11-18] MEDS: BENZONATATE 100 MG CAPSULE PO SCH ×3 (07:43→20:59)
[2020-11-18] MEDS ORDERED: IPRATROPIUM BROMIDE/ALBUTEROL respimat INH INH SCH (14:40)
[2020-11-18] MEDS ORDERED: BENZONATATE 100 MG CAPSULE PO ONE (14:45)
[2020-11-18] MEDS: IPRATROPIUM BROMIDE HFA INHALER INH SCH ×2 (15:29→19:29)
[2020-11-18] MEDS: ALBUTEROL HFA 8 GM INHALER INH SCH ×2 (15:30→19:28)
[2020-11-18] MEDS: HYDROcodone/HOMATROPINE SYRUP 5MG/1.5MG 5ML UDP PO PRN (18:36)
--- NOTE | 2020-11-18 23:06 | Hospitalist Progress Note ---
Date of Service November 18, 2020 Assessment & Plan (1) Acute respiratory failure with hypoxia: 2nd to COVID-19 pneumonia and probable acute/chronic systolic CHF. Still requiring 6 L NC O2 to maintain comfort. Cough still severe and bothersome - takes her breath away. Increase scheduled tessalon to 200mg TID. Hycodan prn. Add combivent qid for wheezing. (2) Pneumonia due to COVID-19 virus: Admitted approximately 4-5 days into her illness course. Was treated with IV steroids; Remdesevir was deferred due to CKD. Initially needed NC O2 4L then O2 requirements escalated quickly to HFNC AM of 11/11. Required transfer to PCU on 11/11. Palliative care consulted on 11/12; patient/family opted for comfort measures. Transitioned to comfort care pathway at that time. Main issues are that of cough/dyspnea and her disposition - see above re: cough. (3) Palliative care encounter: Increase tessalon pearles dose. Hycodan prn. Add combivent as palliative measure. Cont glycopyrrolate and Scopolamine patch to try to help with secretions. Cont NC O2 for comfort. All unnecessary meds stopped. dispo - [facility] w/ hospice once she meets criteria for coming out of isolation?? (4) Acute metabolic encephalopathy: Suspect was due to hypoxia, COVID itself, etc. again a/o x 3 today but continues to have limited to no insight into the severity of her illness and limited insight on why going home is not prudent (lives alone). (5) Hyperkalemia: secondary to acute renal failure last level was 5 on 11/12/20 no labs for several days; K level could be worse but she is now comfort care measures only no further labs (6) CHF (congestive heart failure): acute/chronic systolic CHF. EF 25-30%. hold off on additional diuretics today - starting to look mildly volume contracted; no po intake in days (7) ESRD (end stage renal disease): CKD stage 5/ESRD. No desire for HD. (had been on HD in past - then was noncompliant and it was stopped). Comfort care. (8) Diabetes: stopped BSG checks and insulin therapy (9) Secondary hyperparathyroidism: no Rx (10) Hyponatremia: Acute on Chronic 2nd CKD stopped further lab checks (11) Hypothyroidism: no Rx (12) Anemia associated with chronic renal failure: no further lab checks (13) Metabolic acidosis: 2nd ESRD no Rx needed -- comfort care measures only (14) Dysphagia: can allow "permissive aspiration" given her comfort care status appetite is quite poor however and hardly taking liquids either (15) DVT prophylaxis: stopped Apixaban Admission and Anticipated Discharge Date Admission Date: November 09, 2020 Subjective similar to yesterday she asked to go home, stating she can take care of herself she knows she has COVID but despite such feels she can "make it at home" she coughed constantly during the visit asked for a sip of H20 - promptly coughed with taking 1 sip from a cup denies pain denies dyspnea Review of Systems Respiratory: + cough and + wheezing Cardiovascular: no chest pain Gastrointestinal: no abdominal pain Physical Exam Constitutional: + acute distress (severe coughing) and + altered mental status (oriented, but continued lack of insight into her illness or situation) ENMT: Mouth: + dry oral mucous membranes Respiratory: + respiratory distress, + cough and + tachypneic Auscultation: + crackles (extensive b/l, R>L) and + wheezes (b/l, R>L ) Cardiovascular: Rate/Rhythm: + irregularly irregular Heart Sounds: normal S1 and normal S2; no murmur Vessels: posterior tibial pulses present and dorsalis pedis pulses present; no JVD Extremities: no edema Gastrointestinal (Abdomen): normal bowel sounds, soft, nontender, no hepatosplenomegaly Psychiatric: Orientation: alert, oriented to person and oriented to place Results & Data Results & Data ([facility]) Vital Signs (Past 12 Hours) Vital Signs Pulse Resp Pulse Ox 11/18/20 19:29 84 20 95 11/18/20 15:40 76 20 96 PG Care Time/CCT Total # of Minutes Spent Total Time Spent with Patient: Total time spent is greater than 50% in coordination of care (as documented) at patient's floor/unit and/or counseling patient: Coding Level of Care Code 79898 Subseq Hosp Care Lvl 1 Diagnoses Acute respiratory failure with hypoxia J96.01 Pneumonia due to COVID-19 virus U07.1; J12.82 Palliative care encounter Z51.5 Acute metabolic encephalopathy G93.41 Hyperkalemia E87.5 CHF (congestive heart failure) I50.9 Heart failure chronicity: acute on chronic Heart failure type: unspecified ESRD (end stage renal disease) N18.6 Diabetes E11.22; N18.5 Chronic kidney disease stage: stage 5, not on chronic dialysis Diabetes mellitus complication detail: with chronic kidney disease Diabetes mellitus complication status: with kidney complications Diabetes mellitus jail insulin use: without local company intermodal truck driver use Diabetes mellitus type: type 2 Secondary hyperparathyroidism N25.81 Hyponatremia E87.1 Hypothyroidism E03.9 Hypothyroidism type: acquired Anemia associated with chronic renal failure D63.1 Metabolic acidosis E87.2 Dysphagia R13.10 DVT prophylaxis Z29.9 (1) Diabetes Chronic kidney disease stage: stage 5, not on chronic dialysis Diabetes mellitus complication detail: with chronic kidney disease Diabetes mellitus complication status: with kidney complications Diabetes mellitus local company intermodal truck driver insulin use: without local company intermodal truck driver use Diabetes mellitus type: type 2 Qualified Code(s): E11.22 - Type 2 diabetes mellitus with diabetic chronic kidney disease; N18.5 - Chronic kidney disease, stage 5 (2) CHF (congestive heart failure) Heart failure chronicity: acute on chronic Heart failure type: unspecified Qualified Code(s): I50.9 - Heart failure, unspecified (3) Hypothyroidism Hypothyroidism type: acquired Qualified Code(s): E03.9 - Hypothyroidism, unspecified
[2020-11-19] MEDS: CHECK SCOPOLAMINE PATCH PLACEMENT SCH ×3 (00:17→17:50)
[2020-11-19] MEDS: ALBUTEROL HFA 8 GM INHALER INH SCH ×4 (07:09→19:13)
[2020-11-19] MEDS: IPRATROPIUM BROMIDE HFA INHALER INH SCH ×4 (07:09→19:13)
[2020-11-19] MEDS: BENZONATATE 100 MG CAPSULE PO SCH ×3 (08:35→21:10)
[2020-11-19] MEDS: HYDROcodone/HOMATROPINE SYRUP 5MG/1.5MG 5ML UDP PO PRN (17:50)
--- NOTE | 2020-11-19 19:58 | Hospitalist Progress Note ---
Date of Service November 19, 2020 Assessment & Plan (1) Acute respiratory failure with hypoxia: 2nd to COVID-19 pneumonia and probable acute/chronic systolic CHF. Requiring 5-6 L NC O2 to maintain comfort. Cough is severe. Cont scheduled tessalon 200mg TID. Hycodan prn. I asked nursing to give this more frequently Cont combivent qid for wheezing. (2) Pneumonia due to COVID-19 virus: Admitted approximately 4-5 days into her illness course. Was treated with IV steroids; Remdesevir was deferred due to CKD. Initially needed NC O2 4L then O2 requirements escalated quickly to HFNC AM of 11/11. Required transfer to PCU on 11/11. Palliative care consulted on 11/12; patient/family opted for comfort measures. Transitioned to comfort care pathway at that time. Main issues are that of cough/dyspnea and her disposition - see above re: cough. See below re: dispo. Has severe fatigue and anorexia from her COVID. Given severity of cough would not remove from airborne isolation at this time. (3) Palliative care encounter: Cont all necessary meds for comfort as previously noted. dispo - [facility] w/ hospice - confirmed this with daughter & son today by phone. (4) Acute metabolic encephalopathy: Suspect was due to hypoxia, COVID itself, etc. again a/o x 3 today but continues to have limited insight (5) CHF (congestive heart failure): acute/chronic systolic CHF. EF 25-30%. consider another dose of palliative diuretic tomorrow if needed (6) ESRD (end stage renal disease): CKD stage 5/ESRD. No desire for HD. (had been on HD in past - then was noncompliant and it was stopped). Comfort care. (7) Diabetes: stopped BSG checks and insulin therapy (8) Hyponatremia: Acute on Chronic 2nd CKD stopped further lab checks (9) Hypothyroidism: no Rx (10) Anemia associated with chronic renal failure: no further lab checks (11) Dysphagia: can allow "permissive aspiration" given her comfort care status (12) Discharge planning issues: 30 minute long conversation with daughter and son by phone discussed their mother's current health status ongoing severe cough from COVID her desires to return home (and I discussed her limited insight into why this is not a good idea) son/daughter immediately stated that they couldn't provide 24/7 care to her in her apartment due to their jobs, etc. we discussed [facility] and transitioning to SNF w/ hospice/comfort I told them I would touch base with social work in am total time today on care activities - 40 minutes (30 of which was phone call) Admission and Anticipated Discharge Date Admission Date: November 09, 2020 Subjective visit today VERY similar to yesterday coughed for much of the visit asked for sips of beverage (offered her sherbet and some water by spoon) asking numerous times to go home and that "I can care for myself - my neighbors help" similar to yesterday she does not realize or have insight that she can't be alone at her apartment denied pain any location Review of Systems Respiratory: + cough, + dyspnea and + wheezing Cardiovascular: no chest pain Gastrointestinal: no abdominal pain Physical Exam Constitutional: + acute distress (severe coughing) and + altered mental status (oriented, but continued lack of insight into her illness or situation) ENMT: Mouth: + dry oral mucous membranes Respiratory: + cough and + tachypneic Auscultation: + crackles (extensive b/l, R>L) and + wheezes (b/l, R>L ) Cardiovascular: Rate/Rhythm: + irregularly irregular Heart Sounds: normal S1 and normal S2; no murmur Vessels: posterior tibial pulses present and dorsalis pedis pulses present; no JVD Extremities: no edema Gastrointestinal (Abdomen): normal bowel sounds, soft, nontender, no hepatosplenomegaly Psychiatric: Orientation: alert, oriented to person, oriented to place and oriented to time (surprisingly knew the year and month but got the day wrong ) Mood: + irritable mood Insight: + poor insight Results & Data Results & Data ([facility]) Vital Signs (Past 12 Hours) Vital Signs Pulse Resp Pulse Ox 11/19/20 19:13 79 26 H 93 11/19/20 10:44 77 20 93 PG Care Time/CCT Total # of Minutes Spent Total Time Spent with Patient: Total time spent is greater than 50% in coordination of care (as documented) at patient's floor/unit and/or counseling patient: Coding Level of Care Code 13639 Subseq Hosp Care Lvl 3 Diagnoses Acute respiratory failure with hypoxia J96.01 Pneumonia due to COVID-19 virus U07.1; J12.82 Palliative care encounter Z51.5 Acute metabolic encephalopathy G93.41 CHF (congestive heart failure) I50.9 Heart failure chronicity: acute on chronic Heart failure type: unspecified ESRD (end stage renal disease) N18.6 Diabetes E11.22; N18.5 Chronic kidney disease stage: stage 5, not on chronic dialysis Diabetes mellitus complication detail: with chronic kidney disease Diabetes mellitus complication status: with kidney complications Diabetes mellitus roasterman insulin use: without roasterman use Diabetes mellitus type: type 2 Hyponatremia E87.1 Hypothyroidism E03.9 Hypothyroidism type: acquired Anemia associated with chronic renal failure D63.1 Dysphagia R13.10 Discharge planning issues Z02.9 (1) Diabetes Chronic kidney disease stage: stage 5, not on chronic dialysis Diabetes mellitus complication detail: with chronic kidney disease Diabetes mellitus complication status: with kidney complications Diabetes mellitus roasterman insulin use: without roasterman use Diabetes mellitus type: type 2 Qualified Code(s): E11.22 - Type 2 diabetes mellitus with diabetic chronic kidney disease; N18.5 - Chronic kidney disease, stage 5 (2) CHF (congestive heart failure) Heart failure chronicity: acute on chronic Heart failure type: unspecified Qualified Code(s): I50.9 - Heart failure, unspecified (3) Hypothyroidism Hypothyroidism type: acquired Qualified Code(s): E03.9 - Hypothyroidism, unspecified
[2020-11-19] MEDS: HYDROmorphone INJ 0.5 MG/0.5 ML SYR IV PRN (21:10)
[2020-11-20] MEDS: HYDROmorphone INJ 0.5 MG/0.5 ML SYR IV PRN ×2 (00:31→09:42)
[2020-11-20] MEDS: CHECK SCOPOLAMINE PATCH PLACEMENT SCH ×4 (00:33→23:53)
[2020-11-20] MEDS: IPRATROPIUM BROMIDE HFA INHALER INH SCH ×4 (07:33→20:23)
[2020-11-20] MEDS: ALBUTEROL HFA 8 GM INHALER INH SCH ×4 (07:34→20:23)
[2020-11-20] MEDS: BENZONATATE 100 MG CAPSULE PO SCH ×3 (08:49→21:59)
[2020-11-20] MEDS: SCOPOLAMINE 1 MG TDSY TD SCH (14:19)
[2020-11-20] MEDS: GLYCOPYRROLATE 0.2 MG/ML VIAL IV PRN (14:20)
--- NOTE | 2020-11-20 21:33 | Hospitalist Progress Note ---
Date of Service November 20, 2020 Assessment & Plan (1) Acute respiratory failure with hypoxia: 2nd to COVID-19 pneumonia and acute/chronic systolic CHF. Requiring 5-6 L NC O2 to maintain comfort and O2 sats in low 90s. Cough has improved with scheduled tessalon 200mg TID, combivent q6h, and hycodan prn along with time. No distress today. No fevers. (2) Pneumonia due to COVID-19 virus: Admitted approximately 4-5 days into her illness course. Was treated with IV steroids; Remdesevir was deferred due to CKD. Initially needed NC O2 4L then O2 requirements escalated quickly to HFNC AM of 11/11. Required transfer to PCU on 11/11. Palliative care consulted on 11/12; patient/family opted for comfort measures. Transitioned to comfort care pathway at that time. Has ongoing severe fatigue and anorexia from her COVID. Cough improved. May be able to d/c airborne isolation now that pulmonary symptoms are better. (3) Palliative care encounter: Cont all necessary meds for comfort as previously noted. dispo - [facility] w/ hospice - confirmed this with daughter & son. SW aware. (4) Acute metabolic encephalopathy: Suspect was due to hypoxia, COVID itself, etc. again a/o x 3 today but continues with limited insight (5) CHF (congestive heart failure): acute/chronic systolic CHF. EF 25-30%. volume status appropriate today. (6) ESRD (end stage renal disease): CKD stage 5/ESRD. (7) Diabetes: stopped BSG checks and insulin therapy (8) Hyponatremia: Acute on Chronic 2nd CKD stopped further lab checks (9) Hypothyroidism: no Rx (10) Anemia associated with chronic renal failure: no further lab checks (11) Dysphagia: can allow "permissive aspiration" given her comfort care status she aspirates even with tiny sips of water (12) Discharge planning issues: see my progress note from yesterday Re: details of phone call w/ family dispo - [facility] w/ hospice/comfort I updated social work this am with plan patient told about [facility] today once isolation is removed can get her to [facility] Admission and Anticipated Discharge Date Admission Date: November 09, 2020 Subjective patient only coughed today after taking a few sips of water otherwise didn't cough I told her that I spoke with her son and daughter by phone yesterday pm Told her that we are all in agreement that she cannot safely return to her apartment She will go to [facility] She immediately asked if she could see her family if at [facility] She was upset about not being able to return home Offered no new complaints Per staff - scant PO intake Review of Systems Respiratory: + cough and + dyspnea Cardiovascular: no chest pain Gastrointestinal: no abdominal pain Physical Exam Constitutional: no acute distress and no altered mental status ENMT: Mouth: + dry oral mucous membranes Respiratory: + cough Auscultation: + crackles (b/l worse right base), + rhonchi (focal - right ) and + wheezes (b/l, R>L ) Cardiovascular: Rate/Rhythm: + irregularly irregular Heart Sounds: normal S1 and normal S2; no murmur Vessels: posterior tibial pulses present and dorsalis pedis pulses present; no JVD Extremities: no edema Gastrointestinal (Abdomen): normal bowel sounds, soft, nontender, no hepatosplenomegaly Psychiatric: Orientation: alert, oriented to person, oriented to place and oriented to time Mood: + irritable mood Insight: + poor insight Results & Data Results & Data ([facility]) Vital Signs (Past 12 Hours) Vital Signs Pulse Resp Pulse Ox 11/20/20 20:23 86 22 93 11/20/20 15:43 99 H 20 94 11/20/20 11:26 93 H 16 95 PG Care Time/CCT Total # of Minutes Spent Total Time Spent with Patient: Total time spent is greater than 50% in coordination of care (as documented) at patient's floor/unit and/or counseling patient: Coding Level of Care Code 00634 Subseq Hosp Care Lvl 2 Diagnoses Acute respiratory failure with hypoxia J96.01 Pneumonia due to COVID-19 virus U07.1; J12.82 Palliative care encounter Z51.5 Acute metabolic encephalopathy G93.41 CHF (congestive heart failure) I50.9 Heart failure chronicity: acute on chronic Heart failure type: unspecified ESRD (end stage renal disease) N18.6 Diabetes E11.22; N18.5 Chronic kidney disease stage: stage 5, not on chronic dialysis Diabetes mellitus complication detail: with chronic kidney disease Diabetes mellitus complication status: with kidney complications Diabetes mellitus mcfp insulin use: without lobsterman use Diabetes mellitus type: type 2 Hyponatremia E87.1 Hypothyroidism E03.9 Hypothyroidism type: acquired Anemia associated with chronic renal failure D63.1 Dysphagia R13.10 Discharge planning issues Z02.9 (1) Diabetes Chronic kidney disease stage: stage 5, not on chronic dialysis Diabetes mellitus complication detail: with chronic kidney disease Diabetes mellitus complication status: with kidney complications Diabetes mellitus lobsterman insulin use: without lobsterman use Diabetes mellitus type: type 2 Qualified Code(s): E11.22 - Type 2 diabetes mellitus with diabetic chronic kidney disease; N18.5 - Chronic kidney disease, stage 5 (2) CHF (congestive heart failure) Heart failure chronicity: acute on chronic Heart failure type: unspecified Qualified Code(s): I50.9 - Heart failure, unspecified (3) Hypothyroidism Hypothyroidism type: acquired Qualified Code(s): E03.9 - Hypothyroidism, unspecified
[2020-11-20] MEDS: HYDROcodone/HOMATROPINE SYRUP 5MG/1.5MG 5ML UDP PO PRN (21:59)
[2020-11-21] MEDS: IPRATROPIUM BROMIDE HFA INHALER INH SCH ×4 (07:21→18:07)
[2020-11-21] MEDS: ALBUTEROL HFA 8 GM INHALER INH SCH ×4 (07:22→18:07)
[2020-11-21] MEDS: BENZONATATE 100 MG CAPSULE PO SCH ×3 (09:45→19:45)
[2020-11-21] MEDS: CHECK SCOPOLAMINE PATCH PLACEMENT SCH ×3 (09:45→22:09)
[2020-11-21] MEDS: HYDROcodone/HOMATROPINE SYRUP 5MG/1.5MG 5ML UDP PO PRN (12:49)
[2020-11-21] MEDS: LIDOCAINE 5% 1 PATCH TD SCH (18:05)
[2020-11-21] MEDS: oxyCODONE HCL SOLN 5 MG/5 ML UDC PO PRN (19:52)
--- NOTE | 2020-11-21 20:17 | Hospitalist Progress Note ---
Date of Service November 21, 2020 Assessment & Plan (1) Acute respiratory failure with hypoxia: 2nd to COVID-19 pneumonia and acute/chronic systolic CHF. Requiring 5-6 L NC O2 to maintain comfort and O2 sats in low 90s. Cough has improved with scheduled tessalon 200mg TID, combivent q6h, and hycodan prn along with time. No distress today. No fevers. Amazingly she is OOB to chair today at her request. [id number] she continues to have over aspiration, lungs sound terrible, continues with NC O2 requirement, etc. She remains on comfort care measures only. (2) Pneumonia due to COVID-19 virus: Admitted approximately 4-5 days into her illness course. Was treated with IV steroids; Remdesevir was deferred due to CKD. Initially needed NC O2 4L then O2 requirements escalated quickly to HFNC AM of 11/11. Required transfer to PCU on 11/11. Palliative care consulted on 11/12; patient/family opted for comfort measures. Transitioned to comfort care pathway at that time. Cough improved. Overall constitution improved today. Can d/c airborne isolation today. Infection control also agrees. (3) Palliative care encounter: Cont all necessary meds for comfort as previously noted. dispo - [facility] w/ hospice vs home with HH/hospice daughter Linda Dupont today by phone states the family is now trying to secure 24/7 caregivers so that they can avoid placement at [facility] and honor her wish of bringing her home (4) Acute metabolic encephalopathy: Suspect was due to hypoxia, COVID itself, etc. Resolved (5) CHF (congestive heart failure): acute/chronic systolic CHF. EF 25-30%. volume status appropriate today. a little hypovolemic on exam. (6) ESRD (end stage renal disease): CKD stage 5/ESRD. (7) Diabetes: stopped BSG checks and insulin therapy (8) Hyponatremia: Acute on Chronic 2nd CKD stopped further lab checks (9) Hypothyroidism: no Rx (10) Anemia associated with chronic renal failure: no further lab checks (11) Dysphagia: can allow "permissive aspiration" given her comfort care status she aspirates even with tiny sips of water she is wanting to eat/drink today - allow as tolerated (12) Discharge planning issues: lengthy discussion Thursday pm with Linda Dupont - daughter, and son, by phone after much discussion plan was to [facility] as family reported inability to provide 24/7 care to Ms Figueroa today family reported to case management they changed their minds -- wanted home with HH / hospice family trying to secure 24/7 caregivers I spoke with Linda Dupont today by phone explained her mother's isolation was d/c and family could visit Linda Dupont confirmed they were trying to get 24/7 caregivers in told her I would support home with that care plan if they could accomplish such gave clinical update questions answered Admission and Anticipated Discharge Date Admission Date: November 09, 2020 Subjective patient wanted to sit in chair today thus, staff got her into the chair she ate about 30-40% of lunch per staff she was irritable today - stating "I want to go home" and "why are you keeping me here? I'm not sick!!" we talked about dispo - [facility] she said "let me go home" Review of Systems Respiratory: + cough Cardiovascular: no chest pain Gastrointestinal: no abdominal pain Physical Exam 2 Constitutional: no acute distress and no altered mental status (amazingly oriented x 3 but no insight into illness - as previous ) sitting in chair ENMT: Mouth: + dry oral mucous membranes Respiratory: + cough Auscultation: + crackles (b/l worse right base) and + wheezes (b/l, R>L ) Cardiovascular: Rate/Rhythm: + irregularly irregular Heart Sounds: normal S1 and normal S2; no murmur Vessels: posterior tibial pulses present and dorsalis pedis pulses present; no JVD Extremities: no edema Gastrointestinal (Abdomen): normal bowel sounds, soft, nontender, no hepatosplenomegaly Psychiatric: Orientation: alert, oriented to person, oriented to place and oriented to time Mood: + irritable mood Insight: + poor insight Results & Data Results & Data ([facility]) Vital Signs (Past 12 Hours) Vital Signs Pulse Resp Pulse Ox 11/21/20 18:08 89 21 91 11/21/20 15:55 88 20 90 11/21/20 11:12 88 20 93 PG Care Time/CCT Total # of Minutes Spent Total Time Spent with Patient: Total time spent is greater than 50% in coordination of care (as documented) at patient's floor/unit and/or counseling patient: Coding Level of Care Code 68963 Subseq Hosp Care Lvl 2 Diagnoses Acute respiratory failure with hypoxia J96.01 Pneumonia due to COVID-19 virus U07.1; J12.82 Palliative care encounter Z51.5 Acute metabolic encephalopathy G93.41 CHF (congestive heart failure) I50.9 Heart failure chronicity: acute on chronic Heart failure type: unspecified ESRD (end stage renal disease) N18.6 Diabetes E11.22; N18.5 Chronic kidney disease stage: stage 5, not on chronic dialysis Diabetes mellitus complication detail: with chronic kidney disease Diabetes mellitus complication status: with kidney complications Diabetes mellitus terminal operations manager insulin use: without long-term use Diabetes mellitus type: type 2 Hyponatremia E87.1 Hypothyroidism E03.9 Hypothyroidism type: acquired Anemia associated with chronic renal failure D63.1 Dysphagia R13.10 Discharge planning issues Z02.9 (1) Diabetes Chronic kidney disease stage: stage 5, not on chronic dialysis Diabetes mellitus complication detail: with chronic kidney disease Diabetes mellitus complication status: with kidney complications Diabetes mellitus terminal operations manager insulin use: without terminal operations manager use Diabetes mellitus type: type 2 Qualified Code(s): E11.22 - Type 2 diabetes mellitus with diabetic chronic kidney disease; N18.5 - Chronic kidney disease, stage 5 (2) CHF (congestive heart failure) Heart failure chronicity: acute on chronic Heart failure type: unspecified Qualified Code(s): I50.9 - Heart failure, unspecified (3) Hypothyroidism Hypothyroidism type: acquired Qualified Code(s): E03.9 - Hypothyroidism, unspecified
[2020-11-22] MEDS: ALBUTEROL HFA 8 GM INHALER INH SCH (07:06)
[2020-11-22] MEDS: IPRATROPIUM BROMIDE HFA INHALER INH SCH (07:06)
[2020-11-22] MEDS: CHECK SCOPOLAMINE PATCH PLACEMENT SCH (07:30)
[2020-11-22] MEDS ORDERED: ALBUTEROL HFA 8 GM INHALER INH PRN (08:07)
[2020-11-22] MEDS ORDERED: IPRATROPIUM BROMIDE HFA INHALER INH PRN (08:07)
[2020-11-22] MEDS: LIDOCAINE 5% 1 PATCH TD SCH (08:50)
[2020-11-22] MEDS: BENZONATATE 100 MG CAPSULE PO SCH (08:52)
[2020-11-22] MEDS: GLYCOPYRROLATE 0.2 MG/ML VIAL IV PRN (08:58)
--- NOTE | 2020-11-22 11:07 | Death Pronouncement Note ---
Date of Service November 22, 2020 Pronouncement Note Admission Date Admission Date: November 09, 2020 Date and Time of Date of : 11/22/20 Time of : 10:00 PCOD Preliminary cause of : Pneumonia due to 2019 novel coronavirus Contributing Factors (1) Acute respiratory failure with hypoxia: (2) Pneumonia due to COVID-19 virus: (3) Palliative care encounter: (4) Acute metabolic encephalopathy: (5) CHF (congestive heart failure): (6) ESRD (end stage renal disease): (7) Diabetes: (8) Hyponatremia: (9) Hypothyroidism: (10) Anemia associated with chronic renal failure: (11) Dysphagia: (12) Discharge planning issues: Summary Additional details: See "discharge summary" for detailed information regarding the patient's hospitalization. Additional Data Confirmation of : no pulse, no respirations, no heart sounds, pupils fixed and dilated and other (no response to pain or voice) Family: contacted Additional persons at bedside: other (palliative care, nursing staff ) Attending/PCP notified?: Yes Attending physician: Rober Roberson Was code activated?: No Autopsy requested?: No payroll examiner notified?: No Coding Level of Care Code None Diagnoses Acute respiratory failure with hypoxia J96.01 Pneumonia due to COVID-19 virus U07.1; J12.82 Palliative care encounter Z51.5 Acute metabolic encephalopathy G93.41 CHF (congestive heart failure) I50.9 Heart failure chronicity: acute on chronic Heart failure type: unspecified ESRD (end stage renal disease) N18.6 Diabetes E11.22; N18.5 Chronic kidney disease stage: stage 5, not on chronic dialysis Diabetes mellitus complication detail: with chronic kidney disease Diabetes mellitus complication status: with kidney complications Diabetes mellitus termination clerk insulin use: without termination clerk use Diabetes mellitus type: type 2 Hyponatremia E87.1 Hypothyroidism E03.9 Hypothyroidism type: acquired Anemia associated with chronic renal failure D63.1 Dysphagia R13.10 Discharge planning issues Z02.9
--- NOTE | 2020-11-22 21:59 | Discharge Summary ---
Date of Service date of admission - November 09, 2020 date of - November 22, 2020 Admission HPI Per Admitting Provider 79 YOF comes to hospital today for increasing cough, sputum production, shortness of breath. Patient has a past medical history of non-compliance with dialysis and medications, ESRD (no longer on dialysis), HTN, Mitral regurg) hfRef (25-30%), hypoparathyroidism, subclavian artery stenosis, asthma, anxiety, depression, DM, afib, SIADH hyponatremia. Patient reports that she has not been feeling well for the past 3-4 days and that she has been coughing up green colored sputum. She was tested for COVID and this came back positive. She has not been vaccinated. The patient is a poor historian and is unsure of her medications, and confabulating stories of her going out grocery shopping and visiting her friends. I spoke to her daughter Linda Dupont to gather information and review her medications. She reports that the patient doesn't really go anywhere other than down to the laundry mat downstairs of her house and she went there on Thursday as well as earlier in the week. She was seen by her family members about 2 days ago and noted that her apartment was a little unkept which is unusual for her because she has not been feeling well. I reviewed her contacts with the daughter and advised them to self-quarantine, symptom monitor, and seek medical attention if they become symptomatic. Patient does have frequent productive cough, but overall looks mildly hypervolemic, but much improved from July. She is warm and well perfused. Pleasantly confused at this time. She has CKD stage 5 and used to get her volume and pressures managed through dialysis. Secondary to non-compliance with medication and dialysis regime, her PermCath was removed and renal replacement therapy is no longer a treatment option. She was seen by palliative care in August for her worsening heart failure and renal failure. She remains DNR/DNI. Her daughter Linda Dupont is secondary contact, but her son Jamir is listed as primary contact- works dayshift at the shelter and is unable to have his phone on him. If unable to contact Jamir, Linda Dupont is available. Linda Dupont takes her to her appointments and assists her with her medications as well. Principal Diagnosis acute hypoxic respiratory failure 2nd to COVID-19 pneumonia Discharge Exam At time of pronouncement - Pupils fixed/dilated. No audible heart tones. No spontaneous respiratory effort. No response to pain/voice. No palpable pulse. Discharge Data Allergies Allergy/AdvReac Type Severity Reaction Status Date / Time doxycycline Allergy Unknown Hives Verified 11/09/20 09:48 labetalol Allergy Unknown tired and Verified 11/09/20 09:48 depressed lorazepam Allergy Unknown "SQUIRRELLY Verified 11/09/20 09:48 " Pork/Porcine Containing Allergy Unknown tired and Verified 11/09/20 09:48 Products depression tetracycline Allergy Unknown unknown(not Verified 11/09/20 09:48 100% sure if she's allergic to it) tramadol AdvReac Unknown dizzy, Verified 11/09/20 09:48 emesis Consultations nephrology palliative care Hospital Course (1) Acute respiratory failure with hypoxia: 2nd to COVID-19 pneumonia and acute/chronic systolic CHF. Required NC O2 at time of admission which quickly escalated to high-flow NC at high settings. When her respiratory status worsened - in light of DNR/DNI status - discussions were held with her family about goals of care. She was transitioned to palliative care/comfort care. Following that transition she remained on NC O2 at about 4-6 liters for the remainder of her stay. Up until being made comfort she received steroids and diuresis. She had a severe cough from her COVID-19 pneumonia. Several agents were used to treat her cough and chest symptoms. While on comfort care she had severe anorexia, severe fatigue/weakness, and her lungs had severe rales & wheezing. There was high concern that she was aspirating frequently in the midst of her COVID-19 infection. Preparations were being made by social work & her family to have her go to a local SNF with hospice vs home with hospice. However, on the AM of 11/22/20, the patient passed peacefully while on comfort care. (2) Pneumonia due to COVID-19 virus: Admitted approximately 4-5 days into her illness course. Was treated with IV steroids; Remdesevir was deferred due to CKD. Initially needed NC O2 4L then O2 requirements escalated quickly to high-flow NC on the AM of 11/11/20. Required transfer to PCU on that date. Palliative care consulted on 11/12/20; patient/family opted for comfort measures at that time. The patient generally did poorly for the remainder of her stay with failure to thrive, severe cough, anorexia, weakness, etc. This was despite some decrease in her oxygen requirements. She ultimately passed peacefully on the AM of 11/22/20. (3) Palliative care encounter: Transitioned to a comfort care pathway on 11/12/20. Remained on such until her on 11/22/20. (4) Acute metabolic encephalopathy: Suspect was due to hypoxia, COVID itself, etc. (5) CHF (congestive heart failure): acute/chronic systolic CHF. EF 25-30%. (6) ESRD (end stage renal disease): CKD stage 5/ESRD. (7) Diabetes: (8) Hyponatremia: Acute on Chronic 2nd CKD and CHF (9) Hypothyroidism: (10) Anemia associated with chronic renal failure: (11) Dysphagia: high suspicion for frequent aspiration during her stay Total Time Total Time Spent Total Time Spent (In Minutes): 25 Total Time Includes: Examination of the Patient, Communication With Other Providers and Other (Notifying family of patient's ) Discharge Plan Discharge Items Patient Disposition: Coding Level of Care Code D/C Day Management <30 mins Diagnoses Acute respiratory failure with hypoxia J96.01 Pneumonia due to COVID-19 virus U07.1; J12.82 Palliative care encounter Z51.5 Acute metabolic encephalopathy G93.41 CHF (congestive heart failure) I50.9 Heart failure chronicity: acute on chronic Heart failure type: unspecified ESRD (end stage renal disease) N18.6 Diabetes E11.22; N18.5 Chronic kidney disease stage: stage 5, not on chronic dialysis Diabetes mellitus complication detail: with chronic kidney disease Diabetes mellitus complication status: with kidney complications 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
== END 2020-11-22 14:55 | disposition expired ==
LOC: ED 08:24 → SUATTDRO 11:08 → 2N 11:08 → 2E 11-11 10:24 → 2W 11-14 09:50 → 3N 11-16 16:14